=== PATIENT | female | born 1950 | race Caucasian/White ===

== ENCOUNTER 2020-10-14 09:37 | Emergency (ER) | payer MEDICARE, SELFPAY ==
[2020-10-14 09:56] VITALS: BP 157/90; PULSE 93; RESP 18; TEMP 36.6; O2SAT 99; BMI 26.6
--- NOTE | 2020-10-14 10:01 | XR_ITS ---
PROCEDURE: XR LUMBAR SPINE 2-3V CLINICAL INDICATION: back pain while loading wood stove COMPARISON: No exams were available for comparison FINDINGS: No fracture or dislocation. No lytic or blastic change. There is normal mineralization. There are mild degenerative changes with small anterior osteophytes and with degenerative disease at L2-L3. Mild facet arthritic changes are noted. There is diffuse vascular calcification. Normal alignment. Other findings:None. IMPRESSION: Degenerative change, no acute finding Dictated by: Gil Zapata MD 10/14/2020 11:38 Gil Zapata MD in [place] 10/14/2020 11:38
--- NOTE | 2020-10-14 10:05 | HMH.EDGENADL ---
ED Disposition Clinical Impression: Strain of lumbar region Disposition: Home, Self-Care Condition on Discharge: Good Instructions: DI for Low Back Pain Prescriptions: Lidocaine [Lidocaine Pain Relief] 1 each TP DAILY 5 Days #5 adh..patch Prescription Printed Naproxen Sodium [Naproxen 220mg Tab] 220 mg PO TID 10 Days #20 tab Prescription Printed methocarbamoL [Robaxin 750mg Tab] 750 mg PO TID PRN 5 Days #15 tab PRN Reason: Mild Pain Prescription Printed Referrals: Eddi Lozano MD [Primary Care Provider] - - Critical Care Critical Care Time: No Attestation: On 10/14/20, the high probability of a clinically significant, sudden or life threatening deterioration of the following system(s) required my full and direct attention, intervention and personal management. The time I documented below is in addition to time spent performing reported procedures but includes the following listed in this critical care notation. Medical Decision Making - Medical Records Medical records reviewed: Yes: I reviewed the patient's medical records. - Jonny Inquiry Pt receiving controlled substance: No Vital Signs: 10/14/20 09:56 Temperature 97.8 F Temperature Source Oral Pulse Rate [Left Radial] 93 H Respiratory Rate 18 Blood Pressure [Right Arm] 157/90 H Blood Pressure Mean [Right Arm] 112 Blood Pressure Source [Right Arm] Automatic Cuff Blood Pressure Position [Right Arm] Sitting 02 Sat by Pulse Oximetry 99 Oxygen Delivery Method Room Air Orders (Tests/Meds): ED MEDICATIONS Generic Name Dose Route Start Last Admin Trade Name Freq PRN Reason Stop Dose Admin Methocarbamol 500 mg 10/14/20 21:00 10/14/20 10:09 Methocarbamol 500mg Tablet PO 11/13/20 20:59 500 mg BID NATASHA Administration Discontinued Medications Generic Name Dose Route Start Last Admin Trade Name Freq PRN Reason Stop Dose Admin Ketorolac Tromethamine 30 mg 10/14/20 10:00 10/14/20 10:10 Ketorolac 60mg/2ml Vial IM 10/14/20 10:01 30 mg ONCE ONE Administration Lidocaine 1 each 10/14/20 10:00 10/14/20 10:27 Lidocaine 5% Transdermal Patch TP 10/14/20 10:01 1 each ONCE ONE Administration ORDERS Category Date Time Status Lumbar spine XR 2-3 views [XR lumbar spine 2-3V] Stat Exams 10/14/20 10:01 Taken Medical Decision Narrative: 69-year-old female presents with acute onset back pain. She says that she has no neurological deficit and is ambulatory. No concern for cauda equina syndrome or infectious etiology. Screening x-ray obtained as she is elderly and at risk for compression fracture. Given Toradol lidocaine and Robaxin for symptomatic relief. At 11:20 AM patient is ambulatory in the room and feels like she is having less pain. Plan to refer her to primary care physician for physical therapy versus advanced imaging. Otherwise given strict return precautions and discharged home with symptomatic relief General Adult HPI - General Chief complaint: Back Pain/Injury Stated complaint: back pain Time Seen by Provider: 10/14/20 09:40 Mode of Arrival: Ambulatory Limitations: No Limitations Description of Symptoms (Recalled from ER Triage Doc. by RN): c/o lower back pain that started after she was loading the wood stove this morning. - History of Present Illness HPI narrative: 69-year-old female was loading a wood stove and began to have lower back pain. She says the pain is constant worse with movement, dull in nature. She denies radiation of the pain numbness weakness or tingling in lower extremities. She is able to ambulate. She denies urinary or bowel incontinence. No groin numbness. No fever chills dysuria or flank pain. No abdominal pain. Onset (ago): hour(s) (1) Radiation: non-radiation Severity: moderate Severity scale (1-10): 5 Quality: dull, constant Consistency: constant - Related Data Previous Rx's Medication Instructions Recorded Lidocaine [Lidocaine Pain Relief] 1 ea
[2020-10-14 10:38] VITALS: BP 158/90; PULSE 88; RESP 18; O2SAT 98
[2020-10-14 11:35] VITALS: BP 170/74; PULSE 73; RESP 20; TEMP 36.6; O2SAT 98
== END 2020-10-14 11:36 | disposition home or self-care (01) ==
PROVIDERS: Emergency Provider Emergency Medicine; PCP Radiology Vascular & Interventional Radiology
DX: S39.012A Strain of muscle, fascia and tendon of lower back, initial encounter (principal); X50.0XXA Overexertion from strenuous movement or load, initial encounter; Y92.019 Unspecified place in single-family (private) house as the place of occurrence of the external cause
CPT/HCPCS: 72100; 96372; 99282

== ENCOUNTER 2024-06-06 10:08 | Emergency (ER) | payer MEDICARE, SELFPAY ==
[2024-06-06] VITALS (14 sets, daily range): BP systolic 134–188; BP diastolic 64–84; PULSE 58–88; RESP 11–19; TEMP 36.4–36.8; O2SAT 92–99; BMI 25.8
--- NOTE | 2024-06-06 10:32 | CT_ITS ---
FINAL REPORT TECHNIQUE: Postcontrast enhanced images of the abdomen and pelvis were performed by computed tomography. Extensive 3-D reconstruction images were performed. A CTA was performed. This study was performed with techniques to keep radiation doses as low as reasonably achievable (ALARA). Individualized dose reduction techniques using automated exposure control or adjustment of mA and/or kV according to the patient's size were employed. CLINICAL HISTORY: concern for mesenteric ischemia. COMPARISON: None FINDINGS: ABDOMEN AND PELVIS: Bilateral renal cysts are noted. There is focal wall thickening in the mid ascending colon, worrisome for neoplasm. Colonoscopy is suggested for further evaluation. There is also wall thickening of the ileum with edema in the small bowel mesentery. No adrenal masses are identified. The liver, spleen and pancreas are unremarkable. Mild bladder prolapse is present as well. CTA: There is moderate plaque in the abdominal aorta, particularly the infrarenal aorta with moderate narrowing of the lumen. There is less than 50% stenosis of the origin of the celiac axis origin. There is 60 to 70% stenosis of the proximal superior mesenteric artery. There is calcified plaque involving the origins of the renal arteries bilaterally without significant stenosis. The inferior mesenteric artery is patent. There is moderate calcified plaque present in the iliac arteries bilaterally. There is a focal stenosis involving the left common iliac artery of approximately 70%. There is also approximately 50% stenosis of the proximal right superficial femoral artery. IMPRESSION: Moderate plaque in the infrarenal abdominal aorta with moderate narrowing of the lumen. There is less than 50% stenosis of the origin of the celiac axis. There is 60 to 70% stenosis of the proximal superior mesenteric artery. The CASSANDRA is patent. There is focal wall thickening of the mid ascending colon, worrisome for neoplasm. Colonoscopy is suggested for further evaluation. There is wall thickening of the ileum with edema of the small bowel mesentery present. The differential diagnosis includes either an infectious enteritis or small bowel ischemia. There is a focal stenosis of 70% luminal diameter stenosis of the left common iliac artery. There is 50% stenosis involving the proximal right superficial femoral artery. Reviewed, Interpreted and Dictated by Caesar Huerta III, MD Transcribed by Lala Marie Authenticated and [facility]
[2024-06-06] MEDS: ACETAMINOPHEN 1,000MG/100ML VIAL 1000 MG IV (10:39)
[2024-06-06] MEDS: KETOROLAC 30MG/ML VIAL 15 MG IV (10:39)
[2024-06-06] MEDS: ONDANSETRON 4MG/2ML VIAL 4 MG IV (10:40)
--- NOTE | 2024-06-06 10:41 | ECG_ITS ---
APPROVED REPORT Exam: Resting ECG HR:75 bpm ECG Measurements Heart Rate 75 AXES [place] 206 P 81 QRSd 100 QRS -70 QT 410 T 99 QTc 439 Conclusion Sinus rhythm Left anterior fascicular block Electronically signed by : IRINA LINN, 06/06/2024 16:15:30
[2024-06-06 10:50] LABS: Basophils # 0.1 K/mm3 (0-0.2); Basophils % 0.5 % (0.1-2.0); Eosinophils % 0.3 % (0.1-12.0); Hematocrit 50.1 % (37.0-47.0); Hemoglobin 15.6 g/dL (12.2-16.2); Lymphocytes # 1.7 K/mm3 (0.7-4.5); Lymphocytes % 11.7 % (10-50); Mean Corpuscular HGB Conc 31.2 g/dL (31.8-35.4); Mean Corpuscular Hemoglobin 30.6 pg (27.0-31.2); Mean Corpuscular Volume 98.3 fl (81-99); Mean Platelet Volume 8.4 fl (7.4-10.4); Monocytes # 0.6 K/mm3 (0.1-1.0); Neutrophils # 12.4 K/mm3 (1.8-7.8); Neutrophils % 83.6 % (37.0-80.0); Platelet Count 395 K/mm3 (142-424); Red Blood Count 5.09 M/mm3 (4.20-5.40); Red Cell Distribution Width 13.9 % (11.5-17.5); White Blood Count 14.9 K/mm3 (4.8-10.8)
[2024-06-06 10:54] LABS: Microscopic, Urine URINE MICROSCOPIC (MICROSCOPIC)
[2024-06-06 10:56] LABS: Activated Partial Thrombo Time 24.7 seconds (22.8-30.6)
[2024-06-06 11:00] LABS: Appearance,Urine SL CLOUDY (Clear); Blood, Urine TRACE-I (Negative); Color,Urine DARK YELLOW (Yellow); Glucose,Urine (UA) Negative (Negative); Ketones,Urine TRACE (Negative); Leukocyte Esterase,Urine Negative (Negative); Nitrate,Urine POSITIVE (Negative); Protein,Urine 2+ (Negative); Specific Gravity, Urine >= 1.030 (1.005-1.030)
[2024-06-06 11:02] LABS: Albumin Level 3.9 g/dl (3.5-5.0); Chloride 107 mmol/L (98-107); Sodium 137 mmol/L (136-145)
[2024-06-06 11:03] LABS: Potassium 4.1 mmoL/L (3.5-5.1)
[2024-06-06 11:05] LABS: Alanine Aminotransferase 16 U/L (12-78); Anion Gap 8.1 mEq/L (5-15); Aspartate Amino Transferase 23 U/L (14-36); Blood Urea Nitrogen 14 mg/dl (7-17); Carbon Dioxide 26 mmol/L (22.0-30.0); Creatinine Clearance Estimated 53 mL/min (50-200); Estimated Glomerular Filt Rate 49 ml/min (>60); GFR (African American) 59 ML/MIN (>60)
[2024-06-06 11:06] LABS: Albumin/Globulin Ratio 1.3 (1.1-1.8); Alkaline Phosphatase 85 U/L (38-126); Bilirubin,Total 0.7 mg/dl (0.2-1.3); Chol/HDL Ratio 4.5 (1-3.5); Cholesterol 189 mg/dl (140-200); Glucose 137 mg/dl (74-100); HDL Cholesterol 42 mg/dl (40-60); Lipase 56 U/L (23-300); Total Protein,Serum 6.9 g/dl (6.3-8.2); Triglycerides 129 mg/dl (30-150); VLDL Cholesterol 26 mg/dL (0-40)
[2024-06-06 11:08] LABS: INR 0.95 (0.9-1.1); Prothrombin Time 10.7 seconds (10.1-12.5)
--- NOTE | 2024-06-06 11:10 | ED_ITS ---
Discharge Plan Disposition Patient Disposition: Home, Self-Care Prescriptions Prescriptions: New cefdinir 300 mg capsule 300 mg PO BID 10 Days Qty: 20 0RF No Action methocarbamol 750 MG tablet 750 mg PO TID PRN (Reason: Mild Pain) 5 Days Qty: 15 0RF naproxen sodium 220 MG tablet 220 mg PO TID 10 Days Qty: 20 0RF lidocaine 1 EACH adhesive patch,medicated 1 each TP DAILY 5 Days Qty: 5 0RF Referrals Follow up/Referrals: Provider,Referral, MD [Primary Care Provider] - See instructions Activity Restrictions/Add. Instructions Additional Instructions/Restrictions: Follow-up with both colorectal surgery (Dr. Fowler) and vascular surgery (Dr. Brantley) as directed. Until following up with vascular surgery, take baby aspirin every day. Cefdinir twice daily for 10 days to treat infection in your kidney (pyelonephritis). [place], easily tolerated diet. If you cannot tolerate any more p.o. intake or have any worsening signs or symptoms, return to the emergency department for further evaluation. Call your family doctor to establish care for this visit to the emergency department and schedule follow-up within 48 hours to ensure improvement. If you have any worsening of your condition or any other concerning signs or symptoms, return to the emergency department or your primary care doctor for further evaluation. Clinical Impressions Clinical Impression: Acute pyelonephritis, Mesenteric artery stenosis, Colonic mass Instructions Patient Instructions: DI for Acute Abdominal Pain Print Language Print Language: Irish Discharge ED Provider: Enrique Mendoza General Adult HPI General Chief complaint: Abdominal Pain Stated complaint: Sycopy Time Seen by Provider: 06/06/24 10:25 Mode of Arrival: EMS Source of Information: Patient and EMS Limitations: No Limitations Description of Symptoms (Recalled from ER Triage Doc. by RN): pt c/o intermittant, generalized abd cramping that is a 7/10. pt also c/o N/V/D and acid reflux. pt reports she had a syncopal episode yesterday and again this am while on the toilet. pt denies urinary symptoms. pt has no medical hx or daily medications. History of Present Illness HPI narrative: Please note that above description of symptoms, in this electronic medical record under categorization of recalled from ER triage doctor by RN are reflective of an initial nursing assessment, however, is not reflective of my full history and physical exam that was personally taken and clarified. Consequentially, this preceding description of symptoms, which may include the patient's categorized chief complaint in the EMR, do not reflect my personal clinical impression, and the ultimate description of history of present illness and patient stated complaints should be deferred to this section of the note. Unless stated otherwise or congruent with this section of the note, additional signs, symptoms, or incongruence should be interpreted as inaccurate with my clinical impression. Related Data Previous Rx's ?Medication ?Instructions ?Recorded lidocaine 4 % topical patch 1 each TP DAILY 5 days ##5 10/14/20 methocarbamol 750 mg tablet 750 mg PO TID PRN Mild Pain 5 days 10/14/20 #15 tabs naproxen sodium 220 mg tablet 220 mg PO TID 10 days #20 tabs 10/14/20 cefdinir 300 mg capsule 300 mg PO BID 10 days #20 caps 06/06/24 Allergies Allergy/AdvReac Type Severity Reaction Status Date / Time No Known Allergies Allergy Verified 06/06/24 10:44 [facility] Disclaimer: The information contained in this section may have been updated after the patient was seen, as this information can be updated by other users. Social History Smoking Status: Never smoker alcohol intake: never current occupational status: unemployed Travel in the last 8 weeks: None ROS Obtained: Yes All systems reviewed & no additional complaints except as documented Physical Exam General General appearance: alert Head Head exam: atraumatic and normocephalic Eye Eye exam: Present normal appearance, PERRL and EOMI Neck Neck exam: Present normal inspection, full ROM and trachea midline Respiratory Respiratory exam: Absent respiratory distress, wheezes, stridor, accessory muscle use or prolonged expiratory phase Cardiovascular Cardiovascular exam: Present other (Pulses equal symmetric in upper and lower extremities) Abdominal Exam Abdominal exam: Present soft; Absent distention, tenderness or pulsatile mass Extremities Exam Extremities exam: Absent edema Neurological Exam Neurological exam: Present alert, oriented X3 and CN II-XII intact; Absent motor sensory deficit Skin Skin exam: Present warm and dry; Absent diaphoresis or erythema Medical Decision Making Medical Records Medical records reviewed: Yes I reviewed the patient's medical records. Jonny Inquiry Pt receiving controlled substance: No Jonny was queried for this patient: No Vital Signs: 06/06/24 10:30 06/06/24 10:34 06/06/24 10:49 Temperature 97.5 F L Temperature Source Oral Pulse Rate 81 88 Pulse Rate [Left] 85 Respiratory Rate 16 Blood Pressure 188/81 H 148/84 H Blood Pressure [Right Arm] 150/83 H Blood Pressure Mean Blood Pressure Mean [Right Arm] 105 Blood Pressure Source [Right Arm] Automatic Cuff Blood Pressure Position [Right Arm] Sitting 02 Sat by Pulse Oximetry 97 96 99 Oxygen Delivery Method Room Air Room Air Room Air 06/06/24 11:00 06/06/24 11:40 06/06/24 12:00 Temperature Temperature Source Pulse Rate 68 74 69 Pulse Rate [Left] Respiratory Rate 12 14 12 Blood Pressure 148/78 H 140/70 150/72 H Blood Pressure [Right Arm] Blood Pressure Mean 101 Blood Pressure Mean [Right Arm] Blood Pressure Source [Right Arm] Blood Pressure Position [Right Arm] 02 Sat by Pulse Oximetry 97 98 98 Oxygen Delivery Method Room Air Room Air 06/06/24 12:30 06/06/24 13:00 06/06/24 13:30 Temperature Temperature Source Pulse Rate 59 L 64 60 Pulse Rate [Left] Respiratory Rate 12 13 12 Blood Pressure 134/67 149/75 H 148/82 H Blood Pressure [Right Arm] Blood Pressure Mean Blood Pressure Mean [Right Arm] Blood Pressure Source [Right Arm] Blood Pressure Position [Right Arm] 02 Sat by Pulse Oximetry 97 97 97 Oxygen Delivery Method Room Air Room Air Room Air 06/06/24 14:00 06/06/24 14:30 06/06/24 15:00 Temperature Temperature Source Pulse Rate 58 L 60 62 Pulse Rate [Left] Respiratory Rate 11 L 13 17 Blood Pressure 143/64 H 135/67 159/71 H Blood Pressure [Right Arm] Blood Pressure Mean Blood Pressure Mean [Right Arm] Blood Pressure Source [Right Arm] Blood Pressure Position [Right Arm] 02 Sat by Pulse Oximetry 97 97 95 Oxygen Delivery Method Room Air Room Air Room Air Lab Data Lab Results 06/06/24 10:20: WBC 14.9 H, RBC 5.09, Hgb 15.6, Hct 50.1 H, MCV 98.3, MCH 30.6, MCHC 31.2 L, RDW 13.9, Plt Count 395, MPV 8.4, Neut % (Auto) 83.6 H, Lymph % (Auto) 11.7, [place] % (Auto) 4.0, Eos % (Auto) 0.3, Baso % (Auto) 0.5, Neut # (Auto) 12.4 H, Lymph # (Auto) 1.7, [place] # (Auto) 0.6, Eos # (Auto) 0.0, Baso # (Auto) 0.1, ESR 8, PT 10.7, INR 0.95, APTT 24.7, Sodium 137, Potassium 4.1, Chloride 107, Carbon Dioxide 26, Anion Gap 8.1, BUN 14, Creatinine 1.10 H, Estimated Creat Clear 53, Estimated GFR 49 L, Est GFR ( Amer) 59, Glucose 137 H, Hemoglobin A1c 5.3, Calcium 9.0, Total Bilirubin 0.7, AST 23, ALT 16, Alkaline Phosphatase 85, Troponin I < 0.01, C-Reactive Protein 7.0 H, NT-Pro-B Natriuret Pep 183 H, Total Protein 6.9, Albumin 3.9, Globulin 3.0, Albumin/Globulin Ratio 1.3, Triglycerides 129, Cholesterol 189, LDL Cholesterol Direct 100.82, VLDL Cholesterol 26, HDL Cholesterol 42, Cholesterol/HDL Ratio 4.5 H, Lipase 56, TSH 2.72, Thyroxine (T4) 11.5 H 06/06/24 10:48: Urine Color Dark yellow, Urine Appearance Sl cloudy, Urine pH 6.0, Ur Specific [place] >= 1.030, Urine Protein 2+ A, Urine Glucose (UA) Negative, Urine Ketones Trace, Urine Blood Trace-i, Urine Nitrate Positive, U rine Bilirubin 1+ A, Urine Urobilinogen 1.0, Ur Leukocyte Esterase Negative, Urine RBC Occasional, Urine WBC 3-5, Ur Squamous Epith Cells 5-10, Urine Bacteria 4+ 06/06/24 11:55: Lactate 1.7 06/06/24 10:20 06/06/24 10:20 Orders (Tests/Meds): ED MEDICATIONS Discontinued Medications Generic Name Dose Route Start Last Admin Trade Name Nicole PRN Reason Stop Dose Admin Acetaminophen 1,000 mg 06/06/24 10:32 06/06/24 10:39 Acetaminophen 1,000mg/100ml Vial IV 06/06/24 10:33 1,000 mg ONCE ONE Administration Ceftriaxone Sodium 1 gm/ 50 mls @ 100 mls/hr 06/06/24 12:00 06/06/24 11:59 Sodium Chloride IV 06/06/24 12:29 100 mls/hr ONCE ONE Administration Iopamidol 80 ml 06/06/24 11:28 06/06/24 11:29 Iopamidol-370 (76%);100ml Bottle IV 06/06/24 11:29 80 ml ONCE ONE Administration Ketorolac Tromethamine 15 mg 06/06/24 10:32 06/06/24 10:39 Ketorolac 30mg/Ml Vial IV 06/06/24 10:33 15 mg ONCE ONE Administration Ondansetron HCl 4 mg 06/06/24 10:32 06/06/24 10:40 Ondansetron 4mg/2ml Vial IV 06/06/24 10:33 4 mg ONCE ONE Administration Sodium Chloride 50 ml 06/06/24 11:28 06/06/24 11:28 0.9 % Sodium Chloride 50 Ml Vial IV 06/06/24 11:29 50 ml ONCE ONE Administration Sodium Chloride 10 ml 06/06/24 11:28 06/06/24 11:29 Sodium Chloride 0.9% 10ml Syr (Rad Only) IV 06/06/24 11:29 10 ml ONCE ONE Administration ORDERS Category Date Time Status CT angio abdomen pelvis Stat Cat Scan 06/06/24 10:32 Completed POCUS Point of Care (ER Only) Stat Exams 06/06/24 10:34 Completed CRP [C-Reactive Protein] Stat Lab 06/06/24 10:20 Completed Complete Blood Count Auto Diff Stat Lab 06/06/24 10:20 Completed Comprehensive Metabolic Panel Stat Lab 06/06/24 10:20 Completed ESR [Erythrocyte Sedimentation Rate] Stat Lab 06/06/24 10:20 Completed Hemoglobin A1C Stat Lab 06/06/24 10:20 Completed Lactic Acid Stat Lab 06/06/24 11:55 Completed Lipase Stat Lab 06/06/24 10:20 Completed Lipid Panel Stat Lab 06/06/24 10:20 Completed NT Pro Brain Natriuretic Pep. Stat Lab 06/06/24 10:20 Completed PT INR [Prothrombin Time INR] Stat Lab 06/06/24 10:20 Completed PTT [Activated Partial Thrombo Time] Stat Lab 06/06/24 10:20 Completed T4 (Thyroxine) Stat Lab 06/06/24 10:20 Completed TSH [Thyroid Stimulating Hormone] Stat Lab 06/06/24 10:20 Completed Troponin I Stat Lab 09/05/24 10:20 Completed Urinalysis and Microscopic Stat Lab 06/06/24 10:48 Completed Urine Culture Stat Micro 06/06/24 10:48 Received Medical Decision Narrative: 73-year-old female presenting with abdominal pain. Patient states that she has had abdominal pain on and off for the last couple of days. Made worse with oral intake, made better with fasting. Shortly after eating, has immediate cramping in her epigastrium like a band across her abdomen, and then shortly thereafter has bandlike feeling around her lower abdomen associated with cramping diarrhea. No blood in her stool. No fevers or chills, she has been nauseated without vomiting. Does not take any medications, has no health problems. No abdominal surgical history. History was obtained via conversation with patient. On arrival, patient hemodynamically stable, alert, oriented x4, appropriate, GCS 15, moving all extremities spontaneously, pupils equal and reactive to light. Full physical exam performed and significant for well-appearing 73-year-old female who is in no acute distress. Abdomen is soft, nontender, nondistended. No flank tenderness. No distention, no overlying skin changes. Lopez sign negative, McBurney's point tenderness negative. Unremarkable physical exam overall. Differential includes PUD, gastritis, enteritis, gastroenteritis, pancreatitis, SBO, colitis, diverticulitis, nephrolithiasis, UTI, cholecystitis, choledocholithiasis, appendicitis, torsion, hepatitis, aortic pathology, mesenteric ischemia, ACS, among others. Patient placed on continuous cardiac monitoring and continuous pulse ox with initial blood pressure 148/84, heart rate 88, saturation 99% on room air. Independent interpretation of EKG shows sinus rhythm 75 beats a minute no ST or T wave changes concerning for acute ischemia. [place] 206, QRS 100, QTc 439. Patient was given Toradol, acetaminophen, Zofran, fluids for symptomatic management and correction of underlying abnormalities. Workup independently interpreted and significant for mild leukocytosis 14.9 with neutrophilia. Coags are normal. Kidney function mildly decreased 1.1 creatinine with normal BUN. Troponin negative, CRP nonactionable. Thyroid studies normal. Urinalysis with concern for pyelonephritis with protein, blood, nitrates, and bacteria. On independent interpretation of imaging, primarily right-sided/ascending colon bowel wall edema. Patient does also have inflammatory mass. No free air or evidence of perforation. Free fluid throughout the abdomen. See radiology read for full review of final results. I contacted colorectal surgery and vascular surgery at [facility], case was discussed at length. Both recommended outpatient follow-up. Dr. Fowler with colorectal within 1 to 2 weeks, [address] Brantley with vascular within a couple of months. On reevaluation, patient is feeling much better, but awaiting results. Because patient at baseline without signs or symptoms of clinical decompensation, deemed appropriate for discharge. Results were relayed to patient who voiced understanding and were agreeable to outpatient management and follow up. I discussed my clinical impression with patient and answered all questions. At this time, the evidence for any other entities in the differential is insufficient to warrant any further testing or ED observation. This was explained as well. Advisory was given that persistent or worsening symptoms require further evaluation. I confirmed the understanding of this discussion. Messaging Architect disclaimer Much of this encounter note is an electronic pilot control operator helper spoken language to printed text. Electronic pilot control operator helper of the spoken language may permit errors. Although I have reviewed the note, some errors may still exist. Critical Care Critical Care Time Critical Care Time: No
[2024-06-06 11:17] LABS: Direct LDL Cholesterol 100.82 mg/dL (100-129); NT Pro Brain Natriuretic Pep. 183 pg/mL (0-125)
[2024-06-06 11:18] LABS: Bilirubin,Urine 1+ (Negative)
[2024-06-06 11:22] LABS: Erythrocyte Sedimentation Rate 8 mm/hr (0-30)
[2024-06-06 11:26] LABS: T4 (Thyroxine) 11.5 ug/dl (5.53-11.0)
[2024-06-06] MEDS: 0.9 % SODIUM CHLORIDE 50 ML VIAL IV (11:28)
[2024-06-06] MEDS: SODIUM CHLORIDE 0.9% 10ML SYR (RAD ONLY) 10 ML IV (11:29)
[2024-06-06] MEDS: IOPAMIDOL-370 (76%);100ML BOTTLE 80 ML IV (11:29)
[2024-06-06 11:38] LABS: Bacteria,Urine 4+ /lpf; RBC,Urine Occasional #/hpf (0-3)
[2024-06-06 11:40] LABS: Thyroid Stimulating Hormone 2.72 uIU/mL (0.465-4.68)
[2024-06-06 11:43] LABS: Troponin I < 0.01 ng/ml (0.00-0.034)
[2024-06-06] MEDS: CEFTRIAXONE 1 GM 1 GM in 0.9 % SODIUM CHLORIDE 50 ML IV (11:59)
--- NOTE | 2024-06-06 11:59 | PC.NURSE ---
I inquired about blood cultures, states we do not need them.
--- NOTE | 2024-06-06 12:03 | PC.NURSE ---
I rounded on the pt, no new complaints at this time. I took her a cup of ice. call buitrago in reach.
[2024-06-06 12:14] LABS: Lactic Acid 1.7 mmol/L (0.7-2.1)
[2024-06-06 12:16] LABS: Hemoglobin A1C 5.3 % (4.0-6.0)
--- NOTE | 2024-06-06 14:45 | PC.NURSE ---
Called [facility] per Dr Mendoza about this pt. [facility] advised that they would call us back as soon as they get ahold of the Hospitalist
--- NOTE | 2024-06-06 15:10 | PC.NURSE ---
Spoke with [facility] transfer center. They advised that Dr. Linn would call back when available
--- NOTE | 2024-06-06 15:15 | PC.NURSE ---
Rounded on pt. Updated that Dr. Mendoza would be speaking with [facility] and then would be around to update her. Pt voiced understanding. Call sincere butcher.
--- NOTE | 2024-06-06 15:50 | PC.NURSE ---
Dr. Mendoza at [facility] to update pt on POC
--- NOTE | 2024-06-08 12:13 | PC.NURSE ---
DISCUSSED URINE CULTURE WITH DR LINN, NO NEW ORDERS
== END 2024-06-06 16:04 | disposition home or self-care (01) ==
PROVIDERS: Emergency Provider Emergency Medicine
DX: N10 Acute pyelonephritis (principal); K55.1 Chronic vascular disorders of intestine; K63.89 Other specified diseases of intestine; D72.829 Elevated white blood cell count, unspecified
CPT/HCPCS: 74174; 80053; 80061; 81001; 83036; 83605; 83690; 83880; 84436; 84443; 84484; 85025; 85610; 85651; 85730; 86140; 87086; 87088; 87186; 93005; 96365; 96375; 99285; J0131; J0696; J1885; J2405; Q9967

== ENCOUNTER 2024-08-20 11:33 | Outpatient (CLI) | payer MEDICARE, SELFPAY | END 2024-08-20 23:59 | disposition home or self-care (01) | LOC: PREOP 11:34 | PROVIDERS: Visit Provider Surgery | DX: R69 Illness, unspecified (principal) ==

== ENCOUNTER 2024-08-22 05:59 | Day surgery (SDC) | payer MEDICARE, SELFPAY ==
[2024-08-20 11:58] VITALS: BMI 25.2
[2024-08-22] VITALS (9 sets, daily range): BP systolic 146–159; BP diastolic 60–80; PULSE 65–82; RESP 16–18; TEMP 36.2–36.7; O2SAT 94–98
[2024-08-22] MEDS: 0.9 % SODIUM CHLORIDE 1000ML 1,000 ML 25 ML IV (06:30)
--- NOTE | 2024-08-22 06:58 | EXP.ANES.CKL ---
[facility] Disclaimer: The information contained in this section may have been updated after the patient was seen, as this information can be updated by other users. Medical History History of colon cancer Surgical History History of neck surgery History of colonoscopy Family History Sister Heart attack Mother Diabetes Other Family history of CVA Family history of brain aneurysm Social History Smoking Status: Current every day smoker alcohol intake: never substance use type: denies use current occupational status: unemployed and retired Travel in the last 8 weeks: None marital status: [facility] Anesthesia Checklist Patient Identification Patient Identification: Arm Band and Family Structural Data Admitted From: Home Planned Operative Procedure/s: Portacath Verified Documents: Surgical Consent and History and Physical NPO Status Verified Time NPO: 00:00 Additional verifications Patient : No Anesthesia Reactions: No Hx Blood Transfusions: No Blood Transfusion Reaction: No Cephalosporin Allergy: No Previous Colonoscopy: Yes Airway Assessment Mallampati Score:: Class II C-Spine Mobility Assessed: Yes TMJ Mobility Assessed: Yes Dentition: Edentulous Neurological Assessment Level of Consciousness: Awake, Alert, Appropriate and Follows Commands Hx Seizures: No Numbness or tingling in extremities: No Anesthesia Plan Anesthesia Risk discussed: Yes ASA Class: II Anesthesia Type: General Preoperative Comments Pre-Operative Comments: [place]-rectal cancer.
[2024-08-22] MEDS: CEFAZOLIN SODIUM 2 GM in 0.9 % SODIUM CHLORIDE 100 ML IV (07:15)
[2024-08-22] MEDS: LIDOCAINE 1% 20ML MDV 20 ML (07:37)
[2024-08-22] MEDS: SODIUM CHLORIDE 0.9% 20ML VIAL 40 ML IV (07:37)
--- NOTE | 2024-08-22 07:55 | XR_ITS ---
FINAL REPORT CLINICAL HISTORY: PORT A CATH PLACEMENT IN OR FT: 0.57 11.43 MGY FINDINGS: FLUOROSCOPY LESS THAN 1 HOUR HISTORY: Fluoroscopy guidance FINDINGS: Fluoroscopic guidance was provided for Port-A-Cath placement. 2 spot films were obtained. A total of 0.57 minutes of fluoroscopy time was used. DAP: 11.43 mGy IMPRESSION: As above. Reviewed, Interpreted and Dictated by Richard Schofield MD Transcribed by Simran Hannon Authenticated and . [facility]
--- NOTE | 2024-08-22 08:11 | P.OP_ITS ---
Date of procedure: 08/22/24 Pre-op Diagnosis:: Colorectal cancer Post-op Diagnosis:: Same Procedure performed:: Port-A-Cath placement Surgeon:: Chad Rushing MD [employer]ER TEACHER:: Johann Delgado Anesthesia: local and LMA Estimated blood loss (mL): 10 Operative findings:: Catheter placement confirmed fluoroscopically Operative note:: After informed consent was obtained the patient was taken to the operating room and placed in the supine position. General anesthesia with laryngeal mask airway was achieved. Her chest and neck were prepped and draped in a sterile fashion. After infiltration with local anesthetic a large bore needle was utilized to access the left subclavian vein. The guidewire was placed in position and confirmed fluoroscopically. A transverse incision was made at the guidewire exit site. Electrocautery was then utilized to transect through the subcutaneous tissue to create a pocket for the port hub. Utilizing a modified Seldinger technique the port catheter was placed in position and confirmed fluoroscopically. The catheter was cut to appropriate length and secured to the hub. The hub was then secured to the underlying fascia with interrupted Prolene suture. The deep subcutaneous tissue was reapproximated with interrupted Vicryl. Skin was then closed with 4-0 Monocryl in a running subcuticular manner. The port was flushed with heparinized saline without difficulty. Dressings were applied and the patient was transferred to recovery in stable condition. Condition: stable Disposition: PACU Specimens:: None Complications:: No immediate. Chest x-ray pending.
--- NOTE | 2024-08-22 08:15 | XR_ITS ---
FINAL REPORT CLINICAL HISTORY: Port placement COMPARISON: None FINDINGS: A left chest port is present with the tip in the SVC. The heart size is normal. The mediastinum is normal. The lungs are underinflated but clear. There are no pleural effusions. There is no pneumothorax. There is no osseous abnormality. IMPRESSION: No acute cardiopulmonary process Left chest port tip in the SVC. Reviewed, Interpreted and Dictated by Richard Schofield MD Transcribed by Anika Soto Authenticated and [facility]
--- NOTE | 2024-08-22 08:21 | P.PNANES_ITS ---
[facility] Anesthesia Record Part I Anesthesia Record I Intake, IV Amount: 900 Hydration: Adequate Estimated blood loss (mL): 2 Urine output (mL): 0 Blood Products used (#): none Blood Pressure: 150/80 SaO2: 96 Pulse Rate: 82 Airway Patency: Patent Respiratory Rate: 16 Temperature: 97.3 F Patient is:: Drowsy and Stable Stable to PACU at:: 08:15
--- NOTE | 2024-08-23 08:11 | EXP.ANES.II ---
[facility] Anesthesia Record Part II Anesthesia Record Part II Discharge Time: 08:45 Destination: Surgical Day Care (OP Surgery) PACU nurse assessment reviewed?: Yes Patient Condition:: Good Anesthesia Complications:: None Swallowing reflex intact?: Yes Airway Patency: Patent Cyanosis?: No Blood Pressure: 148/70 SaO2: 97 Respiratory Rate: 16 Pulse Rate: 76 Temperature: 98.1 F Mental Status: Alert & Oriented Pain level:: 0 Nausea and/or vomitting:: None Intake, IV Amount: 0 Hydration: Adequate
[2024-08-23 08:12] VITALS: BP 148/70; PULSE 76; RESP 16; TEMP 36.7; O2SAT 97
== END 2024-08-22 09:35 | disposition home or self-care (01) ==
PROVIDERS: Visit Provider Surgery
PROC: (CPT 36561; principal; 2024-08-22 07:30)
DX: C20 Malignant neoplasm of rectum (principal)
CPT/HCPCS: 36561; 77001; 71045; 76000; 96374; C1788; J0690; J1642; J7030

== ENCOUNTER 2024-08-31 10:04 | Emergency (ER) | payer MEDICARE, SELFPAY ==
[2024-08-31] VITALS (11 sets, daily range): BP systolic 126–166; BP diastolic 72–91; PULSE 60–104; RESP 16–18; TEMP 36.3–36.4; O2SAT 95–98; BMI 25.2
--- NOTE | 2024-08-31 10:36 | ED_ITS ---
Discharge Plan Disposition Patient Disposition: Xfer Other Condition: Good Chief Complaint: Abdominal Pain Prescriptions Prescriptions: No Action aspirin 81 mg tablet,chewable 81 mg PO DAILY rosuvastatin 20 mg tablet 20 mg PO DAILY Patient Comments: TAKE 1 TABLET BY MOUTH ONCE DAILY AT NIGHT Referrals Follow up/Referrals: Provider,Damian, [Primary Care Provider] - See instructions Clinical Impressions Clinical Impression: Bowel obstruction Stand Alone Forms Stand Alone Forms: Transfer Record - ED Instructions Patient Instructions: DI for Acute Abdominal Pain Print Language Print Language: Portuguese Discharge ED Provider: Elena Adair General Adult HPI General Chief complaint: Abdominal Pain Stated complaint: abd pain loss of appitate vomiting Time Seen by Provider: 08/31/24 10:36 Mode of Arrival: Ambulatory Source of Information: Patient Limitations: No Limitations Description of Symptoms (Recalled from ER Triage Doc. by RN): Patient reports she was recently diagnosed with stage 4 colorectal cancer and is supposed to start chemo on Monday. Presents to the ER with complaint of vomiting, abdomen pain and unable to have a bowel movement. States her last bowel movement was . History of Present Illness HPI narrative: Patient is a 73-year-old with past medical history significant for colorectal cancer stage IV has not had any surgeries chemo or radiation plans to start chemo on Monday presents to the emergency department with vomiting abdominal pain. Last bowel movement was on 08/28. Unable to tolerate any liquids since 08/29. Pain is severe intermittent cramping in nature with associated bloating. Last passed gas this morning. No fevers chills dysuria or increased urinary frequency Related Data Home Medications ?Medication ?Instructions ?Recorded ?Confirmed aspirin 81 mg chewable tablet 81 mg PO DAILY 08/15/24 rosuvastatin 20 mg tablet 20 mg PO DAILY 08/16/24 08/16/24 Allergies Allergy/AdvReac Type Severity Reaction Status Date / Time No Known Allergies Allergy Verified 08/16/24 09:39 [facility] Disclaimer: The information contained in this section may have been updated after the patient was seen, as this information can be updated by other users. Medical History (Updated 08/31/24 @ 15:01 by Elena Adair MD) History of colon cancer Surgical History History of neck surgery History of colonoscopy Family History Sister Heart attack Mother Diabetes Other Family history of CVA Family history of brain aneurysm Social History Smoking Status: Current every day smoker alcohol intake: never substance use type: denies use current occupational status: unemployed and retired marital status: Other Medical History Have you received the Flu Vaccine for this season: No Have you received the Pneumonia Vaccine: No ROS Obtained: Yes All systems reviewed & no additional complaints except as documented Physical Exam General General appearance: alert and in no apparent distress Comment: Appears uncomfortable Head Head exam: atraumatic and normocephalic ENT ENT exam: Present normal exam and mucous membranes moist Chest Chest inspection: Present symmetric chest wall rise and tenderness Respiratory Respiratory exam: Absent respiratory distress Cardiovascular Cardiovascular exam: Present regular rate and normal rhythm Abdominal Exam Abdominal exam: Present soft, distention (Minimal distention), tenderness (Right lower quadrant tenderness with associated guarding) and guarding Comment: No flank pain Neurological Exam Neurological exam: Present alert and oriented X3 Skin Skin exam: Present warm, dry and rash Medical Decision Making Medical Records Screening: Per USPSTF and CDC recommendations, given the prevalence of disease in our region, it is our hospital?s policy to screen for HIV and viral Hepatitis for all patients aged 18 and over and those with ongoing risk factors. Jonny Inquiry Pt receiving controlled substance: No Vital Signs: 08/31/24 10:05 08/31/24 10:30 08/31/24 11:00 Temperature 97.4 F L Temperature Source Oral Pulse Rate 87 60 Pulse Rate [Radial] 104 H Respiratory Rate 16 Blood Pressure 148/87 H 126/85 Blood Pressure [Right Arm] 137/91 H Blood Pressure Mean Blood Pressure Mean [Right Arm] 106 Blood Pressure Source [Right Arm] Automatic Cuff Blood Pressure Position [Right Arm] Sitting 02 Sat by Pulse Oximetry 98 96 96 Oxygen Delivery Method Room Air Room Air Room Air 08/31/24 11:31 08/31/24 12:00 08/31/24 12:30 Temperature Temperature Source Pulse Rate 77 79 70 Pulse Rate [Radial] Respiratory Rate 18 18 18 Blood Pressure 166/79 H 156/77 H 166/84 H Blood Pressure [Right Arm] Blood Pressure Mean 106 103 104 Blood Pressure Mean [Right Arm] Blood Pressure Source [Right Arm] Blood Pressure Position [Right Arm] 02 Sat by Pulse Oximetry 95 98 96 Oxygen Delivery Method 08/31/24 13:00 08/31/24 13:30 08/31/24 14:01 Temperature Temperature Source Pulse Rate 72 69 74 Pulse Rate [Radial] Respiratory Rate Blood Pressure 161/81 H 145/82 H 142/79 H Blood Pressure [Right Arm] Blood Pressure Mean Blood Pressure Mean [Right Arm] Blood Pressure Source [Right Arm] Blood Pressure Position [Right Arm] 02 Sat by Pulse Oximetry 98 95 95 Oxygen Delivery Method Room Air Room Air Room Air 08/31/24 14:30 Temperature Temperature Source Pulse Rate 63 Pulse Rate [Radial] Respiratory Rate Blood Pressure 145/79 H Blood Pressure [Right Arm] Blood Pressure Mean Blood Pressure Mean [Right Arm] Blood Pressure Source [Right Arm] Blood Pressure Position [Right Arm] 02 Sat by Pulse Oximetry 96 Oxygen Delivery Method Room Air Lab Data Lab Results 08/31/24 10:18: WBC 14.0 H, RBC 5.33, Hgb 16.5 H, Hct 48.4 H, MCV 90.8, MCH 31.0, MCHC 34.2, RDW 14.3, Plt Count 383, MPV 7.9, Neut % (Auto) 75.2, Lymph % (Auto) 19.0, [place] % (Auto) 4.7, Eos % (Auto) 0.4, Baso % (Auto) 0.8, Neut # (Auto) 10.5 H, Lymph # (Auto) 2.7, [place] # (Auto) 0.7, Eos # (Auto) 0.1, Baso # (Auto) 0.1, Sodium 138, Potassium 4.0, Chloride 107, Carbon Dioxide 23, Anion Gap 12.0, BUN 16, Creatinine 1.20 H, Estimated Creat Clear 47, Estimated GFR 44 L, Est GFR ( Amer) 53 L, Glucose 122 H, Lactate 1.2, Calcium 9.7, Magnesium 2.0, Total Bilirubin 0.8, AST 26, ALT 16, Alkaline Phosphatase 92, Total Protein 7.6, Albumin 4.3, Globulin 3.3 H, Albumin/Globulin Ratio 1.3, Lipase 73, HIV 1&2 Antibody Rapid Nonreactive 08/31/24 12:15: Urine Color Yellow, Urine Appearance Clear, Urine pH 5.5, Ur Specific [place] 1.020, Urine Protein Trace, Urine Glucose (UA) Negative, Urine Ketones Negative, Urine Blood 1+ A, Urine Nitrate Negative, Urine Bilirubin 1+ A , Urine Urobilinogen 0.2, Ur Leukocyte Esterase Negative, Urine RBC None, Urine WBC Occasional, Ur Squamous Epith Cells 5-10 08/31/24 10:18 08/31/24 10:18 Orders (Tests/Meds): ED MEDICATIONS Generic Name Dose Route Start Last Admin Trade Name Freally PRN Reason Stop Dose Admin Sodium Chloride 10 ml 08/31/24 11:18 08/31/24 11:19 Sodium Chloride 0.9% 10ml Syr (Rad Only) IV 09/30/24 11:17 10 ml NEEDED PRN Administration Maintain IV Site Discontinued Medications Generic Name Dose Route Start Last Admin Trade Name Freq PRN Reason Stop Dose Admin Iopamidol 75 ml 08/31/24 11:18 08/31/24 11:19 Iopamidol-370 (76%);100ml Bottle IV 08/31/24 11:19 75 ml ONCE ONE Administration Morphine Sulfate 2 mg 08/31/24 11:00 08/31/24 10:56 Morphine 2mg/Ml Syringe IV 08/31/24 11:01 2 mg ONCE ONE Administration Morphine Sulfate 4 mg 08/31/24 13:12 08/31/24 13:19 Morphine 4mg/Ml Syringe IV 08/31/24 13:13 4 mg ONCE ONE Administration Ondansetron HCl 4 mg 08/31/24 10:46 08/31/24 10:56 Ondansetron 4mg/2ml Vial IV 08/31/24 10:47 4 mg ONCE ONE Administration ORDERS Category Date Time Status CT abdomen pelvis w con Stat Cat Scan 08/31/24 10:46 Completed CBC w/Auto Diff [Complete Blood Count Auto Diff] Stat Lab 08/31/24 10:18 Completed CMP [Comprehensive Metabolic Panel] Stat Lab 08/31/24 10:18 Completed HIV (1&2) Antibody Rapid Stat Lab 08/31/24 10:18 Completed Hep C Ab with Reflex to RNA Stat Lab 08/31/24 10:18 Received Lactate Venous Stat Lab 08/31/24 10:18 Received Lactic Acid Stat Lab 08/31/24 10:18 Completed Lipase Stat Lab 08/31/24 10:18 Completed MAG [Magnesium] Stat Lab 08/31/24 10:18 Completed UA [Urinalysis and Microscopic] Stat Lab 08/31/24 12:15 Completed Medical Decision Narrative: In summary, this 73-year-old female presents to the emergency department today with abdominal pain nausea vomiting. On initial evaluation patient is tachycardic afebrile hypertensive saturating appropriately on room air no acute distress. Differential diagnosis includes but is not limited to bowel obstruction volvulus ileus metastatic disease constipation. Based on these concerns, I ordered CBC CMP lactate lipase magnesium CT abdomen pelvis with IV contrast UA. Patient received morphine for treatment. Labs personally reviewed demonstrate White blood cell count 14 hemoglobin 16.[address] imaging personally interpreted demonstrate dilated proximal colon with transition point concerning for obstruction. Patient has been evaluated by colorectal surgery Dr. Fowler with current plan to initiate chemotherapy prior to surgical intervention. However patient has developed an obstruction at this point. I had a interactive conversation with our general surgery colleagues who were uncomfortable with extent of patient's cancer in the setting of obstruction. I had an interactive discussion with colorectal surgery with recommendations to transfer to ED for evaluation by colorectal surgery. Accepted to [facility] ED by Dr. Villanueva. Of note, social determinants of health include chronic tobacco use. Critical Care Critical Care Time Critical Care Time: No
--- NOTE | 2024-08-31 10:46 | CT_ITS ---
PROCEDURE INFORMATION: Exam: CT Abdomen And Pelvis With Contrast Exam date and time: 08/31/2024 11:19 AM Age: 73 years old Clinical indication: Abdominal pain; Additional info: Rlq abdominal pain, obstruction suspected TECHNIQUE: Imaging protocol: Computed tomography of the abdomen and pelvis with contrast. Radiation optimization: All CT scans at this facility use at least one of these dose optimization techniques: automated exposure control; mA and/or kV adjustment per patient size (includes targeted exams where dose is matched to clinical indication); or iterative reconstruction. Contrast material: ISOVUE; Contrast volume: 75 ml; Contrast route: IV; COMPARISON: CT ANGIO ABDOMEN PELVIS 06/06/2024 11:29 AM FINDINGS: Lungs: Bibasilar atelectasis. Liver: Micronodular appearance of the liver surface, nonspecific, but concerning for cirrhosis. Trace perihepatic ascites. Gallbladder and biliary ducts: Normal. No calcified stones. No ductal dilation. Pancreas: Normal. No ductal dilation. Spleen: Normal. No splenomegaly. Adrenal glands: Normal. No mass. Kidneys and ureters: There is a 4.2 cm simple cyst in the left interpolar segment, requiring no further follow-up. No suspicious enhancing renal mass. No hydroureteronephrosis. No renal stone. Stomach and bowel: There is a 3.2 x 4.7 x 3.4 cm duodenal diverticulum. There is an area of abnormal, irregular bowel wall thickening in the mid ascending colon measuring up to 1.6 cm in thickness, most consistent with malignancy, given persistence since 06/06/2024 (series 3, image 60). The cecum, ileum, and jejunum are dilated and fluid-filled, while the transverse colon, descending colon, and sigmoid colon are decompressed, consistent with a bowel obstruction. Appendix: The appendix is dilated to 1.5 cm, with a hyperenhancing mucosal wall, and surrounding inflammatory changes, concerning for acute appendicitis. Intraperitoneal space: Trace pelvic ascites. No pneumoperitoneum. Vasculature: Moderate aortoiliac atherosclerosis. Lymph nodes: No significant lymphadenopathy. Urinary bladder: Unremarkable as visualized. Reproductive: Unremarkable as visualized. Bones/joints: No suspicious lytic or blastic bony lesions. No acute fracture. Soft tissues: Unremarkable. IMPRESSION: 1. There is an area of abnormal, irregular bowel wall thickening in the mid ascending colon measuring up to 1.6 cm in thickness, most consistent with malignancy, given persistence since 06/06/2024 (series 3, image 60). The cecum, ileum, and jejunum are dilated and fluid-filled, while the transverse colon, descending colon, and sigmoid colon are decompressed, consistent with a bowel obstruction. 2. The appendix is dilated to 1.5 cm, with a hyperenhancing mucosal wall, and surrounding inflammatory changes, concerning for acute appendicitis. 3. Micronodular appearance of the liver surface, nonspecific, but concerning for cirrhosis. Trace perihepatic ascites. 4. Trace pelvic ascites. No pneumoperitoneum. COMMENTS: Consistent with the [employer]'s Incidental Findings Committee white paper (J Am Glenn Radiol 2018): Any incidental renal lesion less than 1 cm or classified as too small to characterize, or any incidental cystic renal lesion characterized as simple-appearing, is likely benign. No follow-up imaging is recommended for these lesions per consensus recommendations based on imaging criteria. THIS REPORT CONTAINS FINDINGS THAT MAY BE CRITICAL TO PATIENT CARE. The findings were verbally communicated via telephone conference at 11:59 AM EST on 08/31/2024 with Elena Adair. The findings were acknowledged and understood.
[2024-08-31 10:54] LABS: Basophils # 0.1 K/mm3 (0-0.2); Basophils % 0.8 % (0.1-2.0); Eosinophils # 0.1 K/mm3 (0.0-0.4); Eosinophils % 0.4 % (0.1-12.0); Hematocrit 48.4 % (37.0-47.0); Hemoglobin 16.5 g/dL (12.2-16.2); Lymphocytes # 2.7 K/mm3 (0.7-4.5); Mean Corpuscular HGB Conc 34.2 g/dL (31.8-35.4); Mean Corpuscular Volume 90.8 fl (81-99); Mean Platelet Volume 7.9 fl (7.4-10.4); Monocytes # 0.7 K/mm3 (0.1-1.0); Monocytes % 4.7 % (1.7-9.3); Neutrophils # 10.5 K/mm3 (1.8-7.8); Neutrophils % 75.2 % (37.0-80.0); Platelet Count 383 K/mm3 (142-424); Red Blood Count 5.33 M/mm3 (4.20-5.40); Red Cell Distribution Width 14.3 % (11.5-17.5)
[2024-08-31 10:56] LABS: Albumin Level 4.3 g/dl (3.5-5.0); Chloride 107 mmol/L (98-107); Sodium 138 mmol/L (136-145)
[2024-08-31] MEDS: ONDANSETRON 4MG/2ML VIAL 4 MG IV (10:56)
[2024-08-31] MEDS: MORPHINE 2MG/ML SYRINGE 2 MG IV (10:56)
[2024-08-31 10:59] LABS: Alanine Aminotransferase 16 U/L (12-78); Albumin/Globulin Ratio 1.3 (1.1-1.8); Alkaline Phosphatase 92 U/L (38-126); Aspartate Amino Transferase 26 U/L (14-36); Bilirubin,Total 0.8 mg/dl (0.2-1.3); Carbon Dioxide 23 mmol/L (22.0-30.0); Globulin 3.3 g/dL (1.3-3.2); HIV (1&2) Antibody Rapid NONREACTIVE (NONREACTIVE); Total Protein,Serum 7.6 g/dl (6.3-8.2)
[2024-08-31 11:00] LABS: Calcium 9.7 mg/dl (8.4-10.2); Glucose 122 mg/dl (74-100); Lipase 73 U/L (23-300)
[2024-08-31 11:04] LABS: Blood Urea Nitrogen 16 mg/dl (7-17); Creatinine Clearance Estimated 47 mL/min (50-200); Estimated Glomerular Filt Rate 44 ml/min (>60); GFR (African American) 53 ML/MIN (>60)
--- NOTE | 2024-08-31 11:09 | PC.NURSE ---
Pt out of room with Rad for CT
[2024-08-31] MEDS: SODIUM CHLORIDE 0.9% 10ML SYR (RAD ONLY) 10 ML IV (11:19)
[2024-08-31] MEDS: IOPAMIDOL-370 (76%);100ML BOTTLE 75 ML IV (11:19)
--- NOTE | 2024-08-31 11:50 | PC.NURSE ---
Called Lab as they have not received in the Lactate that was sent at 1018. Order was adjusted from venous lactic to lactate @ 1148
--- NOTE | 2024-08-31 11:56 | PC.NURSE ---
Dr. Adair s/w [facility] for critical findings
--- NOTE | 2024-08-31 11:57 | PC.NURSE ---
paged general surgery for ER MD, general surgery called back
--- NOTE | 2024-08-31 12:03 | PC.NURSE ---
Dr. Adair at bedside
--- NOTE | 2024-08-31 12:04 | PC.NURSE ---
Spoke to tx center regarding tx for colorectal surgery. They advised they would call us back
--- NOTE | 2024-08-31 12:04 | PC.NURSE ---
Calling [facility] for transfer & s/w [place]. Images have been power-shared & radiology is preparing a disc
[2024-08-31 12:08] LABS: Lactic Acid 1.2 mmol/L (0.7-2.1)
--- NOTE | 2024-08-31 12:43 | PC.NURSE ---
Dr. Turner [facility]
[2024-08-31 13:08] LABS: Microscopic, Urine URINE MICROSCOPIC (MICROSCOPIC)
[2024-08-31 13:13] LABS: Appearance,Urine CLEAR (Clear); Blood, Urine 1+ (Negative); Color,Urine YELLOW (Yellow); Glucose,Urine (UA) Negative (Negative); Ketones,Urine Negative (Negative); Leukocyte Esterase,Urine Negative (Negative); Nitrate,Urine Negative (Negative); PH,Urine 5.5 (5.0-8.5); Protein,Urine TRACE (Negative); Urobilinogen,Urine 0.2 EU/dl (0.2)
[2024-08-31 13:17] LABS: Bilirubin,Urine 1+ (Negative)
[2024-08-31] MEDS: MORPHINE 4MG/ML SYRINGE 4 MG IV (13:19)
[2024-08-31 13:41] LABS: WBC,Urine Occasional #/hpf (0-3)
--- NOTE | 2024-08-31 14:11 | PC.NURSE ---
Addendum entered by Joi Saleh RN 08/31/24 14:12: Call occurred at 1358 Original Note: Called [facility] transfer center d/t still awaiting call back from colorectal surgery, states the on-call surgery in currently in surgery and will re-page them.
--- NOTE | 2024-08-31 14:49 | PC.NURSE ---
Dr. Adair is s/w Dr. Wilder with , he accepts pt. Dr. Adair states pt to transfer via Ambulance- BLS.
--- NOTE | 2024-08-31 14:59 | PC.NURSE ---
Report given to MELINDA Albarran at [facility].
[2024-09-01 08:12] LABS: HCV Ab Non Reactive (Non Reactive)
== END 2024-08-31 15:36 | disposition other institution (70) ==
PROVIDERS: Emergency Provider Student in an Organized Health Care Education/Training Program
DX: K56.609 Unspecified intestinal obstruction, unspecified as to partial versus complete obstruction (principal); R10.9 Unspecified abdominal pain; R11.10 Vomiting, unspecified; R14.0 Abdominal distension (gaseous); C18.9 Malignant neoplasm of colon, unspecified
CPT/HCPCS: 74177; 80053; 81001; 83605; 83690; 83735; 85025; 86803; 87389; 96374; 96375; 99285; J2270; J2405; Q9967

== ENCOUNTER 2024-09-17 10:47 | Outpatient (CLI) | payer MEDICARE, SELFPAY ==
[2024-09-17] MEDS: SODIUM CHLORIDE 0.9% 10ML FLUSH SYRINGE 10 ML IV (11:10)
[2024-09-17 11:33] LABS: Basophils # 0.1 K/mm3 (0-0.2); Eosinophils # 0.2 K/mm3 (0.0-0.4); Eosinophils % 1.7 % (0.1-12.0); Hematocrit 40.7 % (37.0-47.0); Hemoglobin 13.8 g/dL (12.2-16.2); Lymphocytes # 3.6 K/mm3 (0.7-4.5); Lymphocytes % 33.2 % (10-50); Mean Corpuscular Volume 91.1 fl (81-99); Mean Platelet Volume 7.4 fl (7.4-10.4); Monocytes # 0.6 K/mm3 (0.1-1.0); Monocytes % 5.4 % (1.7-9.3); Neutrophils # 6.3 K/mm3 (1.8-7.8); Neutrophils % 58.7 % (37.0-80.0); Platelet Count 420 K/mm3 (142-424); Red Blood Count 4.47 M/mm3 (4.20-5.40); Red Cell Distribution Width 14.1 % (11.5-17.5); White Blood Count 10.8 K/mm3 (4.8-10.8)
[2024-09-17 12:07] LABS: Alanine Aminotransferase 16 U/L (12-78); Albumin Level 3.8 g/dl (3.5-5.0); Albumin/Globulin Ratio 1.4 (1.1-1.8); Alkaline Phosphatase 72 U/L (38-126); Aspartate Amino Transferase 23 U/L (14-36); Bilirubin,Total 0.4 mg/dl (0.2-1.3); Blood Urea Nitrogen 11 mg/dl (7-17); Calcium 9.4 mg/dl (8.4-10.2); Carbon Dioxide 22 mmol/L (22.0-30.0); Chloride 109 mmol/L (98-107); Estimated Glomerular Filt Rate 49 ml/min (>60); GFR (African American) 59 ML/MIN (>60); Globulin 2.8 g/dL (1.3-3.2); Glucose 86 mg/dl (74-100); Sodium 138 mmol/L (136-145); Total Protein,Serum 6.6 g/dl (6.3-8.2)
[2024-09-17 12:21] LABS: Anion Gap 11.2 mEq/L (5-15); Potassium 4.2 mmoL/L (3.5-5.1)
[2024-09-18 08:48] LABS: CEA 1.3 ng/mL (0.0-4.7)
== END 2024-09-17 11:20 | disposition home or self-care (01) ==
LOC: INF 10:48
PROVIDERS: PCP Nurse Practitioner Family; Visit Provider Internal Medicine Medical Oncology
DX: C20 Malignant neoplasm of rectum (principal); C77.5 Secondary and unspecified malignant neoplasm of intrapelvic lymph nodes
CPT/HCPCS: 36591; 80053; 82378; 85025; J1642

== ENCOUNTER 2024-10-01 08:32 | Outpatient (CLI) | payer MEDICARE, SELFPAY ==
[2024-10-01] VITALS (11 sets, daily range): BP systolic 129–158; BP diastolic 54–70; PULSE 57–72; RESP 18; O2SAT 97
[2024-10-01 09:02] LABS: Basophils # 0.1 K/mm3 (0-0.2); Basophils % 0.7 % (0.1-2.0); Eosinophils # 0.3 K/mm3 (0.0-0.4); Eosinophils % 2.3 % (0.1-12.0); Hematocrit 38.1 % (37.0-47.0); Hemoglobin 13.1 g/dL (12.2-16.2); Lymphocytes # 3.6 K/mm3 (0.7-4.5); Lymphocytes % 33.9 % (10-50); Mean Corpuscular HGB Conc 34.4 g/dL (31.8-35.4); Mean Corpuscular Hemoglobin 30.6 pg (27.0-31.2); Mean Platelet Volume 9.5 fl (7.4-10.4); Monocytes # 0.7 K/mm3 (0.1-1.0); Monocytes % 6.3 % (1.7-9.3); Neutrophils # 6.1 K/mm3 (1.8-7.8); Neutrophils % 56.5 % (37.0-80.0); Platelet Count 281 K/mm3 (142-424); Red Blood Count 4.28 M/mm3 (4.20-5.40); Red Cell Distribution Width 13.5 % (11.5-17.5); White Blood Count 10.7 K/mm3 (4.8-10.8)
[2024-10-01 09:13] LABS: Albumin Level 3.8 g/dl (3.5-5.0); Chloride 108 mmol/L (98-107); Potassium 4.3 mmoL/L (3.5-5.1); Sodium 133 mmol/L (136-145)
[2024-10-01 09:15] LABS: Blood Urea Nitrogen 13 mg/dl (7-17); Estimated Glomerular Filt Rate 44 ml/min (>60); GFR (African American) 53 ML/MIN (>60)
[2024-10-01 09:16] LABS: Alanine Aminotransferase 19 U/L (12-78); Albumin/Globulin Ratio 1.4 (1.1-1.8); Alkaline Phosphatase 67 U/L (38-126); Anion Gap 7.3 mEq/L (5-15); Aspartate Amino Transferase 24 U/L (14-36); Bilirubin,Total 0.5 mg/dl (0.2-1.3); Calcium 9.6 mg/dl (8.4-10.2); Carbon Dioxide 22 mmol/L (22.0-30.0); Globulin 2.7 g/dL (1.3-3.2); Glucose 83 mg/dl (74-100); Total Protein,Serum 6.5 g/dl (6.3-8.2)
[2024-10-01] MEDS: CALCIUM GLUCONATE 1,000 MG, MAGNESIUM SULFATE 1 GM in DEXTROSE 5 % IN WATER 100 ML 224 MG IV ×2 (09:39→12:45)
[2024-10-01] MEDS: diphenhydrAMINE 25MG CAPSULE 25 MG PO (09:47)
[2024-10-01] MEDS: MONTELUKAST SODIUM 10MG TAB 10 MG PO (09:47)
[2024-10-01] MEDS: ONDANSETRON 4MG ODT 16 MG SL (09:48)
[2024-10-01] MEDS: DEXAMETHASONE 4MG TABLET 12 MG PO (09:48)
[2024-10-01] MEDS: FAMOTIDINE 20MG TABLET 20 MG PO (09:48)
[2024-10-01] MEDS: OXALIPLATIN IV (10:12)
[2024-10-01] MEDS: DEXTROSE 5% IV (10:12)
[2024-10-01] MEDS: WATER IV (10:12)
[2024-10-01] MEDS: SODIUM CHLORIDE 0.9% 10ML FLUSH SYRINGE 10 ML IV (13:15)
[2024-10-03 14:15] LABS: CEA 1.4 ng/mL (0.0-4.7)
--- NOTE | 2024-10-03 16:45 | DIET.NUTRFU ---
Chemo consult: Spoke to patient and she denies any change appetite of GI distress. Had no dietary concerns. Provided contact information is appetite changes.
== END 2024-10-01 13:19 | disposition home or self-care (01) ==
PROVIDERS: PCP Nurse Practitioner Family; Visit Provider Internal Medicine Medical Oncology
DX: C20 Malignant neoplasm of rectum (principal); C77.5 Secondary and unspecified malignant neoplasm of intrapelvic lymph nodes
CPT/HCPCS: 80053; 82378; 85025; 96413; 96415; J1642; J7060; J8540; J9263; Q0162

== ENCOUNTER 2024-10-21 11:18 | Inpatient (IN) | payer MEDICARE, SELFPAY ==
[2024-10-21] VITALS (26 sets, daily range): BP systolic 107–141; BP diastolic 61–90; PULSE 67–102; RESP 13–33; TEMP 36.4–36.5; O2SAT 85–100; BMI 23.5
--- NOTE | 2024-10-21 11:35 | ECG_ITS ---
APPROVED REPORT Exam: Resting ECG HR:91 bpm ECG Measurements Heart Rate 91 AXES WY 181 P 70 QRSd 110 QRS -71 QT 377 T 99 QTc 425 Conclusion SINUS RHYTHM PATTERN CONSISTENT WITH PULMONARY DISEASE LEFT ANTERIOR FASCICULAR BLOCK [QRS AXIS <= -45, QR IN I, RS IN II] LEFT VENTRICULAR HYPERTROPHY AND ST-T CHANGE [VOLTAGE CRITERIA PLUS ST/T ABNORMALITY] No STEMI Electronically signed by : MAGALI KELSEY, 10/22/2024 16:01:39
--- NOTE | 2024-10-21 12:15 | PC.NURSE ---
Called lab to obtain blood-work as ordered by Dr. Aj
[2024-10-21 12:44] LABS: Coronavirus 19, PCR Not Detected (NotDetected); Influenza A, PCR Not Detected (NotDetected); Influenza B, PCR Not Detected (NotDetected)
[2024-10-21 12:46] LABS: VBG Base Excess -5.8 mmol/L (-2.4-2.3); VBG HCO3 19.4 mmol/L (23-30); VBG Oxygen Saturation 72.9 % (50-70); VBG PCO2 34.1 mmol/L (35-51); VBG PH 7.37 mmol/L (7.31-7.41); VBG PO2 39.2 mmol/L (28-40); VBG Total CO2 20.5 mmol/L (23-27)
[2024-10-21 12:47] LABS: Lactate Venous 2.8 mmol/L (0.4-2.0)
[2024-10-21 12:49] LABS: Basophils % 0.3 % (0.1-2.0); Eosinophils % 0.3 % (0.1-12.0); Hematocrit 46.5 % (37.0-47.0); Hemoglobin 16.6 g/dL (12.2-16.2); Lymphocytes # 2.5 K/mm3 (0.7-4.5); Lymphocytes % 21.2 % (10-50); Mean Corpuscular HGB Conc 35.7 g/dL (31.8-35.4); Mean Corpuscular Hemoglobin 30.6 pg (27.0-31.2); Mean Corpuscular Volume 85.8 fl (81-99); Mean Platelet Volume 9.8 fl (7.4-10.4); Monocytes # 1.4 K/mm3 (0.1-1.0); Monocytes % 12.2 % (1.7-9.3); Neutrophils # 7.7 K/mm3 (1.8-7.8); Neutrophils % 65.7 % (37.0-80.0); Platelet Count 224 K/mm3 (142-424); Red Blood Count 5.42 M/mm3 (4.20-5.40); Red Cell Distribution Width 13.8 % (11.5-17.5); White Blood Count 11.8 K/mm3 (4.8-10.8)
[2024-10-21 12:52] LABS: Albumin Level 4.7 g/dl (3.5-5.0); Chloride 94 mmol/L (98-107); Sodium 131 mmol/L (136-145)
[2024-10-21 12:53] LABS: Potassium 3.8 mmoL/L (3.5-5.1)
--- NOTE | 2024-10-21 12:54 | ED_ITS ---
Discharge Plan Disposition Patient Disposition: Admitted Condition: Good Clinical Impressions Clinical Impression: LENA (acute kidney injury), Abdominal pain, Hyponatremia, General weakness, Pancreatitis, Enteritis Discharge ED Provider: Natalia Aj General Adult HPI General Chief complaint: Weakness Stated complaint: weakness, cant eat x 2 days, V/D, Time Seen by Provider: 10/21/24 11:54 Mode of Arrival: Wheelchair Source of Information: Patient Limitations: No Limitations Description of Symptoms (Recalled from ER Triage Doc. by RN): PT REPORTS WEAKNESS X 2-3 DAYS, NEAR SYNCOPE, ABDOMINAL CRAMPING AND CHANGE IN OSTOMY OUTPUT. LAST CHEMO 10/01 History of Present Illness HPI narrative: This patient is a 73-year-old female with a history of colon adenocarcinoma with resultant bowel obstruction status post laparoscopic diverting loop ileostomy on 09/02/2024 currently on chemotherapy managed at presenting to the emergency department for evaluation with concern for generalized weakness for the last 2 to 3 days, nausea and vomiting, lower abdominal pain/cramping, and an increase in ostomy output. Patient states that for the last 2 to 3 days, anytime she eats or drink anything, it goes straight through her and comes out as loose, watery, ostomy output. This is much higher output than usual. She also notes that is different in color, as a fluttering almost green. She notes that if it does not come out her ostomy immediately, she has nausea and vomiting this nonbloody and nonbilious. No fevers, chest pain, shortness of breath, cough, urinary symptoms, or other concerns. Related Data Home Medications ?Medication ?Instructions ?Recorded ?Confirmed aspirin 81 mg chewable tablet 81 mg PO DAILY 08/15/24 10/21/24 rosuvastatin 20 mg tablet 20 mg PO HS 08/16/24 10/21/24 lisinopril 10 mg tablet 20 mg PO DAILY 10/21/24 10/21/24 ondansetron 8 mg disintegrating 8 mg PO DAILY 10/21/24 10/21/24 tablet prochlorperazine maleate 10 mg 10 mg PO Q6HP PRN nausea and 10/21/24 10/21/24 tablet (Compazine) vomiting Allergies Allergy/AdvReac Type Severity Reaction Status Date / Time No Known Allergies Allergy Verified 09/17/24 10:44 PFSH PFSH Disclaimer: The information contained in this section may have been updated after the patient was seen, as this information can be updated by other users. Medical History History of colon cancer Surgical History History of neck surgery History of colonoscopy Family History Sister Heart attack Mother Diabetes Other Family history of CVA Family history of brain aneurysm Social History Smoking Status: Current every day smoker alcohol intake: never substance use type: denies use current occupational status: unemployed and retired Travel in the last 8 weeks: None marital status: Have you lived/traveled outside [place] in past 30 days?: No Contact w/someone who lives/traveled outside US past 30 days?: No Exposure to someone with infectious disease in past 14 days?: No Do you have a fever (greater than 100.4 F or 38 C)?: No Have you tested positive for COVID-19: No Exposed to someone with COVID-19 in past 14 days?: No Do you have a sore throat?: No Do you have a cough?: No Do you have any weakness?: Yes Do you have any diarrhea?: Yes Are you experiencing any unusual bleeding?: No Do you have any muscle aches/pain?: No Do you have any abdominal pain?: No Are you experiencing loss of taste or smell?: No Other Medical History Have you received the Flu Vaccine for this season: No Have you received the Pneumonia Vaccine: No ROS Obtained: Yes All systems reviewed & no additional complaints except as documented Physical Exam General General appearance: alert and in no apparent distress Head Head exam: atraumatic and normocephalic Eye Eye exam: Present normal appearance, PERRL and EOMI ENT ENT exam: Present mucous membranes dry and normal external ear exam Neck Neck exam: Present normal inspection, full ROM and trachea midline; Absent tenderness Chest Chest inspection: Present normal inspection and symmetric chest wall rise; Absent tenderness Respiratory Respiratory exam: Present normal lung sounds bilaterally; Absent respiratory distress, wheezes, stridor or accessory muscle use Cardiovascular Cardiovascular exam: Present regular rate and normal rhythm Abdominal Exam Abdominal exam: Present tenderness (Left lower quadrant) and guarding (Left lower quadrant); Absent distention, rebound or rigidity Comment: Ostomy in place with very thin light brown output Extremities Exam Extremities exam: Present normal inspection, full ROM and normal capillary refill; Absent tenderness or edema Back Exam Back exam: Present normal inspection and full ROM; Absent tenderness Neurological Exam Neurological exam: Present alert, oriented X3, CN II-XII intact and normal gait; Absent motor sensory deficit Psychiatric Psychiatric exam: Present normal affect and normal mood Skin Skin exam: Present warm and dry Medical Decision Making Medical Records Medical records reviewed: Yes I reviewed the patient's medical records. Screening: Per USPSTF and CDC recommendations, given the prevalence of disease in our region, it is our hospital?s policy to screen for HIV and viral Hepatitis for all patients aged 18 and over and those with ongoing risk factors. Jonny Inquiry Pt receiving controlled substance: No Vital Signs: 10/21/24 11:19 10/21/24 11:31 10/21/24 11:45 Temperature 97.6 F Temperature Source Oral Pulse Rate 95 H 89 Pulse Rate [Apical] 100 H Respiratory Rate 18 21 17 Blood Pressure Blood Pressure [Right Arm] 129/90 Blood Pressure Mean [Right Arm] 103 Blood Pressure Source [Right Arm] Automatic Cuff Blood Pressure Position [Right Arm] Sitting 02 Sat by Pulse Oximetry 99 100 98 Oxygen Delivery Method Room Air 10/21/24 12:00 10/21/24 12:15 10/21/24 12:30 Temperature Temperature Source Pulse Rate 92 H 88 89 Pulse Rate [Apical] Respiratory Rate 19 29 H Blood Pressure 135/88 135/85 Blood Pressure [Right Arm] Blood Pressure Mean [Right Arm] Blood Pressure Source [Right Arm] Blood Pressure Position [Right Arm] 02 Sat by Pulse Oximetry 97 96 98 Oxygen Delivery Method 10/21/24 12:45 10/21/24 13:00 10/21/24 13:20 Temperature Temperature Source Pulse Rate 87 86 96 H Pulse Rate [Apical] Respiratory Rate 21 Blood Pressure 124/79 Blood Pressure [Right Arm] Blood Pressure Mean [Right Arm] Blood Pressure Source [Right Arm] Blood Pressure Position [Right Arm] 02 Sat by Pulse Oximetry 97 97 98 Oxygen Delivery Method 10/21/24 13:30 Temperature Temperature Source Pulse Rate 98 H Pulse Rate [Apical] Respiratory Rate 19 Blood Pressure 126/78 Blood Pressure [Right Arm] Blood Pressure Mean [Right Arm] Blood Pressure Source [Right Arm] Blood Pressure Position [Right Arm] 02 Sat by Pulse Oximetry 98 Oxygen Delivery Method Lab Data Lab results reviewed: Yes I reviewed the patient's lab results. Lab Results 10/21/24 12:36: WBC 11.8 H, RBC 5.42 H, Hgb 16.6 H, Hct 46.5, MCV 85.8, MCH 30.6, MCHC 35.7 H, RDW 13.8, Plt Count 224, MPV 9.8, Neut % (Auto) 65.7, Lymph % (Auto) 21.2, [place] % (Auto) 12.2 H, Eos % (Auto) 0.3, Baso % (Auto) 0.3, Neut # (Auto) 7.7, Lymph # (Auto) 2.5, [place] # (Auto) 1.4 H, Eos # (Auto) 0.0, Baso # (Auto) 0.0, VBG pH 7.37, VBG pCO2 34.1 L, VBG pO2 39.2, VBG HCO3 19.4 L, VBG Total CO2 20.5 L, VBG O2 Saturation 72.9 H, VBG Base Excess -5.8 L, VBG Lactic Acid 2.8 H, Sodium 131 L, Potassium 3.8, Chloride 94 L, Carbon Dioxide 21 L, A nion Gap 19.8 H, BUN 61 H, Creatinine 3.00 H, Estimated Creat Clear 18, E stimated GFR 15 L*, Est GFR ( Amer) 18 L*, Glucose 120 H, Calcium 9.9, P hosphorus 6.4 H, Magnesium 1.9, Total Bilirubin 0.6, AST 38 H, ALT 34, Alkaline Phosphatase 96, Total Protein 7.6, Albumin 4.7, Globulin 2.9, Albumin/Globulin Ratio 1.6, Lipase 477 H, TSH 1.46, Thyroxine (T4) 15.3 H, HCV Ab MADELINE w/Rflx PCR Qn Negative, HIV Ag/Ab Combo Qual Negative 10/21/24 12:38: SARS-CoV-2 (PCR) Not detected, Influenza A Untype (PCR) Not detected, Influenza Type B (PCR) Not detected 10/21/24 12:36 10/21/24 12:36 Orders (Tests/Meds): ED MEDICATIONS Discontinued Medications Generic Name Dose Route Start Last Admin Trade Name Nicole PRN Reason Stop Dose Admin Acetaminophen 1,000 mg 10/21/24 12:39 10/21/24 13:04 Acetaminophen 1,000mg/100ml Vial IV 10/21/24 12:40 1,000 mg ONCE ONE Administration Fluticasone Propionate 1 spray 10/21/24 12:52 10/21/24 13:30 Fluticasone Prop 50mcg Nasal [place] 16gm NS 10/21/24 12:53 Not Given ONCE ONE Lactated Ringer's 1,000 mls @ 999 mls/hr 10/21/24 12:39 10/21/24 14:29 Lactated Ringer's 1000 Ml Bag IV 10/21/24 13:39 Not Given .Q1H1M ONE Lactated Ringer's 2,040 mls @ 1,020 mls/hr 10/21/24 13:01 10/21/24 13:00 Lactated Ringer's 1000 Ml Bag 30 ml/kg infuse over 2 hr (2040 ml) 10/21/24 15:00 1,020 mls/hr IV Administration .Q2H ONE Ketorolac Tromethamine 15 mg 10/21/24 12:39 10/21/24 13:04 Ketorolac 30mg/Ml Vial IV 10/21/24 12:40 15 mg ONCE ONE Administration Ondansetron HCl 4 mg 10/21/24 12:39 10/21/24 13:04 Ondansetron 4mg/2ml Vial IV 10/21/24 12:40 4 mg ONCE ONE Administration ORDERS Category Date Time Status CT abdomen pelvis wo con Stat Cat Scan 10/21/24 13:[address] chest wo con Stat Cat Scan 10/21/24 13:08 Completed Complete Blood Count Auto Diff Stat Lab 10/21/24 12:36 Completed Comprehensive Metabolic Panel Stat Lab 10/21/24 12:36 Completed HIV Combo Stat Lab 10/21/24 12:36 Completed Hepatitis C Ab Qual. W/ RFX Stat Lab 10/21/24 12:36 Completed Lipase Stat Lab 10/21/24 12:36 Completed MAG [Magnesium] Stat Lab 10/21/24 12:36 Completed PHOS [Phosphorous] Stat Lab 10/21/24 12:36 Completed Rapid PCR Covid and Flu A/B Stat Lab 10/21/24 12:38 Completed T4 (Thyroxine) Stat Lab 10/21/24 12:36 Completed TSH [Thyroid Stimulating Hormone] Stat Lab 10/21/24 12:36 Completed UA [Urinalysis and Microscopic] Stat Lab 10/21/24 12:12 Ordered VBG [Venous Blood Gas] Stat RT 10/21/24 12:36 Completed ECG Data Tracing #1: I reviewed this ECG and interpreted as documented below: Normal sinus rhythm ventricular rate of 91 bpm. Left anterior fascicular block. Some motion artifact degrades study. No acute ST elevations concerning for ischemia. Normal QTc interval ECG initial impression date: 10/21/24 ECG initial impression time: 11:36 Medical Decision Narrative: In summary, this patient is a 73-year-old female presenting to the Emergency Department for evaluation of general weakness, abdominal pain, nausea, vomiting, and increase in ostomy output.. Differential diagnoses considered include but are not limited to colitis, pancreatitis, gastritis, bowel obstruction, LENA, dehydration. Ruling out the most morbid conditions drove assessment. It should be noted patient's history includes colon cancer on chemo which may or may not be at goal therapy. This complicates all aspects of care by increasing patient's risk for morbidity. I reviewed patient's past medical records and noted admission at in September and colectomy as detailed in HPI. I also noted oncology notes here and documentation of infusion therapy with oxaliplatin. On exam, the patient is lying in bed in no acute distress. She is nontoxic- appearing but does appear clinically dry. She does have abdominal tenderness, especially in the left side. She also has increased watery ostomy output. Workup included broad lab evaluation to evaluate for infectious and metabolic etiologies as well as an initial plan for CTA PE and CT abdomen pelvis with IV contrast to further assess. Labs demonstrated concern for mild leukocytosis. Patient has significant LENA with a creatinine up to 3 from 1.2. She also has mild hyponatremia with a sodium of 131. Anion gap, BUN, CO2 all abnormal consistent with significant volume contraction. Lipase is elevated at 477. Given significant LENA, I considered sticking with plan for CTs with contrast, however I decided to avoid IV contrast and obtain CT scan of the chest, abdomen, and pelvis without IV contrast to see if we find anything concerning and avoid any sort of potential harm to the kidneys. She was given a sepsis bolus of IV fluids at 30 cc/kg. Prior to knowledge about the patient's LENA, she was given IV Zofran, Toradol, acetaminophen for symptomatic improvement. On reassessment, the patient is resting comfortably states that she is feeling a little bit better. Again, labs significant for mild leukocytosis, significant LENA and concerns for volume contraction based on CMP, elevated lipase at 477. CT scans were read by radiology and noted improvement in appendix dilation that been present on prior imaging without secondary findings concerning for appendicitis, and of course resolution of her bowel obstruction with this new diverting loop ileostomy. Ultimately, I feel the patient would benefit from admission for medical management of nausea, vomiting, and increased ostomy output with dehydration and LENA. Differentials for this include enteritis versus dumping syndrome. I had an interactive discussion with the hospitalist who wanted me to get opinions from general surgery just to make sure that we did not need to be doing anything else, and Dr. Piper with general surgery advised medical management of her symptoms and lab derangements at this time. Given this, the hospitalist admitted the patient in stable condition for further evaluation and management. Critical Care Critical Care Time Critical Care Time: No
[2024-10-21 12:55] LABS: Alanine Aminotransferase 34 U/L (12-78); Albumin/Globulin Ratio 1.6 (1.1-1.8); Alkaline Phosphatase 96 U/L (38-126); Anion Gap 19.8 mEq/L (5-15); Aspartate Amino Transferase 38 U/L (14-36); Bilirubin,Total 0.6 mg/dl (0.2-1.3); Blood Urea Nitrogen 61 mg/dl (7-17); Carbon Dioxide 21 mmol/L (22.0-30.0); Creatinine Clearance Estimated 18 mL/min (50-200); Estimated Glomerular Filt Rate 15 ml/min (>60); GFR (African American) 18 ML/MIN (>60); Globulin 2.9 g/dL (1.3-3.2); Lipase 477 U/L (23-300); Total Protein,Serum 7.6 g/dl (6.3-8.2)
[2024-10-21 12:56] LABS: Calcium 9.9 mg/dl (8.4-10.2); Glucose 120 mg/dl (74-100)
[2024-10-21] MEDS: LACTATED RINGERS 1000ML 2,040 ML 1020 ML IV (13:00)
[2024-10-21] MEDS: ONDANSETRON 4MG/2ML VIAL 4 MG IV (13:04)
[2024-10-21] MEDS: KETOROLAC 30MG/ML VIAL 15 MG IV (13:04)
[2024-10-21] MEDS: ACETAMINOPHEN 1,000MG/100ML VIAL 1000 MG IV (13:04)
--- NOTE | 2024-10-21 13:08 | CT_ITS ---
FINAL REPORT TECHNIQUE: Axial images through the abdomen and pelvis were performed without contrast. This study was performed with techniques to keep radiation doses as low as reasonably achievable, (ALARA). Individualized dose reduction techniques using automated exposure control or adjustment of mA and/or kV according to the patient's size were employed. CLINICAL HISTORY: abd pain, inc ostomy output, LENA, elevated lipase COMPARISON: 08/31/2024 FINDINGS: Abdomen: The liver parenchyma is homogeneous. Previously noted small amount of fluid around the liver has resolved. The gallbladder is present. The spleen, pancreas, and adrenal glands are without acute abnormality. A benign-appearing cyst in the left kidney measures 4.4 cm in diameter. The right kidney is unremarkable. There is ectasia of the abdominal aorta measuring up to 2.1 cm. Pelvis: A right anterior pelvic wall ostomy is noted. There are no abnormally dilated loops of bowel. The appendix is not enlarged but less distended than on the prior exam. The appendix measures 8 mm on today's exam and previously measured 15 mm. There is no surrounding inflammation. The uterus is present and lies eccentric to the right. There is no free fluid or adenopathy. IMPRESSION: Resolved ascites. The appendix is mildly enlarged but is less distended than on the prior exam. New, right anterior pelvic wall ostomy. Distended loops of bowel are no longer seen. Reviewed, Interpreted and Dictated by Richard Schofield MD Transcribed by Yany Rosen Authenticated and [facility]
--- NOTE | 2024-10-21 13:08 | CT_ITS ---
FINAL REPORT TECHNIQUE: Axial images were obtained through the chest without contrast. This study was performed with techniques to keep radiation doses as low as reasonably achievable (ALARA). Individualized dose reduction techniques using automated exposure control or adjustment of mA and/or kV according to the patient's size were employed. CLINICAL HISTORY: LENA, general illness COMPARISON: None FINDINGS: CT CHEST: A chest port is present with its tip in the superior vena cava. The lungs are clear. The heart size is normal. There is lipomatous hypertrophy of the interatrial septum. There is no pericardial or pleural effusion. Limited images of the upper abdomen demonstrate a 4.3 cm hypodense region, likely a left renal cyst. No suspicious infiltrate or nodule identified. IMPRESSION: No acute cardiopulmonary abnormality is identified. 4.3 cm hypodense region in the left kidney, likely a renal cyst. Reviewed, Interpreted and Dictated by Richard Schofield MD Transcribed by Lala Marie Authenticated and [facility]
[2024-10-21 13:31] LABS: Magnesium 1.9 mg/dl (1.6-2.3); Phosphorous 6.4 mg/dl (2.5-4.5)
[2024-10-21 13:48] LABS: T4 (Thyroxine) 15.3 ug/dl (5.53-11.0)
[2024-10-21 14:02] LABS: Thyroid Stimulating Hormone 1.46 uIU/mL (0.465-4.68)
[2024-10-21 14:12] LABS: HIV Combo NEGATIVE (Negative)
[2024-10-21 14:44] LABS: Hepatitis C Ab Qual. W/ RFX NEGATIVE (Negative)
--- NOTE | 2024-10-21 16:24 | PC.NURSE ---
ATTEMPTED TO CALL REPORT, NURSE NOT AVAILABLE
--- NOTE | 2024-10-21 16:26 | HMH.PHAINT1 ---
Pharmacy Intervention Comments: MEDICATION RECONCILIATION COMPLETED ON PATIENT USING EXTERNAL FILL HISTORY FROM PHARMACY AND LIST FROM ONCOLOGY CLINIC. -FRANNIE ASENCIO, ROSA MD
--- NOTE | 2024-10-21 16:30 | PC.NURSE ---
REPORT CALLED TO MELINDA TILLEY
[2024-10-21 16:47] LABS: Reflex Lactic Add Lactic Reflex
--- NOTE | 2024-10-21 16:59 | PC.NURSE ---
arrived by w/c from ED
[2024-10-21 17:43] LABS: Lactic Acid Follow Up (RFLX 1) 1.1 mmol/L (0.7-2.1)
[2024-10-21] MEDS: LACTATED RINGERS 1000ML 1,000 ML 75 ML IV (19:04)
[2024-10-21] MEDS: MAGNESIUM SULFATE IN WATER 2 GM/50 ML PIGGYBACK IV (19:04)
--- NOTE | 2024-10-21 20:55 | P.HP_ITS ---
History of Present Illness *Admission Date: 10/21/24 *Reason for visit:: Nausea/vomiting/diarrhea *History of present illness: Lashae Wyman is a 73-year-old female with a medical history significant for metastatic rectal adenocarcinoma (s/p diverting ileostomy due to distal obstruction), current tobacco smoker, hypertension, hyperlipidemia who presents with nausea/vomiting/diarrhea over the past 4 days. She states her ostomy has had loose, watery, green, foul-smelling diarrhea over the past 4 days. She has had 1-2 episodes of nausea/vomiting over the past 4 days as well. Denies abdominal pain, respiratory symptoms, fever/chills, urinary symptoms. No changes in diet or medications recently. Workup in the ED significant for 11.8, lactate 2.8, creatinine 3.0 (baseline 1.2), phosphorus 6.4, lipase 477, total T4 15.3. Respiratory panel negative. CT abdomen/pelvis unremarkable for acute findings, though did reveal mildly enlarged appendix that has improved since last CT in August 2024. She was fluid resuscitated with 3 L NS bolus. Case discussed with ED provider and decision was made to admit patient for high output ostomy, nausea/vomiting/diarrhea, and LENA. [facility] Disclaimer: The information contained in this section may have been updated after the patient was seen, as this information can be updated by other users. Medical History History of colon cancer Surgical History History of neck surgery History of colonoscopy Family History Sister Heart attack Mother Diabetes Other Family history of CVA Family history of brain aneurysm Social History Smoking Status: Current every day smoker alcohol intake: never substance use type: denies use current occupational status: unemployed and retired Travel in the last 8 weeks: None marital status: Have you lived/traveled outside [place] in past 30 days?: No Contact w/someone who lives/traveled outside US past 30 days?: No Exposure to someone with infectious disease in past 14 days?: No Do you have a fever (greater than 100.4 F or 38 C)?: No Have you tested positive for COVID-19: No Exposed to someone with COVID-19 in past 14 days?: No Do you have a sore throat?: No Do you have a cough?: No Do you have any weakness?: Yes Do you have any diarrhea?: Yes Are you experiencing any unusual bleeding?: No Do you have any muscle aches/pain?: No Do you have any abdominal pain?: No Are you experiencing loss of taste or smell?: No Other Medical History Have you received the Flu Vaccine for this season: No Have you received the Pneumonia Vaccine: No Meds Home Medications and Allergies Home Medications ?Medication ?Instructions ?Recorded ?Confirmed ?Type aspirin 81 mg chewable tablet 81 mg PO DAILY 08/15/24 10/21/24 History rosuvastatin 20 mg tablet 20 mg PO HS 08/16/24 10/21/24 History lisinopril 10 mg tablet 20 mg PO DAILY 10/21/24 10/21/24 History ondansetron 8 mg disintegrating 8 mg PO DAILY 10/21/24 10/21/24 History tablet prochlorperazine maleate 10 mg 10 mg PO Q6HP PRN nausea and 10/21/24 10/21/24 History tablet (Compazine) vomiting New Prescriptions to Start Prescriptions: Allergies Allergy/AdvReac Type Severity Reaction Status Date / Time No Known Allergies Allergy Verified 09/17/24 10:44 Exam Data for Last 24 hours Vital signs and Labs for Last 24 Hours: Temp Pulse Resp BP Pulse Ox O2 Del Method 97.6 F 77 14 133/73 97 Room Air 10/21/24 16:30 10/21/24 16:45 10/21/24 16:45 10/21/24 16:30 10/21/24 16:45 10/21/24 16:30 Laboratory Results - last 24 hr 10/21/24 12:36: WBC 11.8 H, RBC 5.42 H, Hgb 16.6 H, Hct 46.5, MCV 85.8, MCH 30.6, MCHC 35.7 H, RDW 13.8, Plt Count 224, MPV 9.8, Neut % (Auto) 65.7, Lymph % (Auto) 21.2, [place] % (Auto) 12.2 H, Eos % (Auto) 0.3, Baso % (Auto) 0.3, Neut # (Auto) 7.7, Lymph # (Auto) 2.5, [place] # (Auto) 1.4 H, Eos # (Auto) 0.0, Baso # (Auto) 0.0, VBG pH 7.37, VBG pCO2 34.1 L, VBG pO2 39.2, VBG HCO3 19.4 L, VBG Total CO2 20.5 L, VBG O2 Saturation 72.9 H, VBG Base Excess -5.8 L, VBG Lactic Acid 2.8 H, Sodium 131 L, Potassium 3.8, Chloride 94 L, Carbon Dioxide 21 L, Anion Gap 19.8 H, BUN 61 H, Creatinine 3.00 H, Estimated Creat Clear 18, Estimated GFR 15 L*, Est GFR ( Amer) 18 L*, Glucose 120 H, Calcium 9.9, Phosphorus 6.4 H, Magnesium 1.9, Total Bilirubin 0.6, AST 38 H, ALT 34, Alkaline Phosphatase 96, Total Protein 7.6, Albumin 4.7, Globulin 2.9, Albumin/Globulin Ratio 1.6, Lipase 477 H, TSH 1.46, Thyroxine (T4) 15.3 H, HCV Ab MADELINE w/Rflx PCR Qn Negative, HIV Ag/Ab Combo Qual Negative 10/21/24 12:38: SARS-CoV-2 (PCR) Not detected, Influenza A Untype (PCR) Not detected, Influenza Type B (PCR) Not detected 10/21/24 17:28: Lactate 1.1 I & O for Last 24 hours: Intake & Output 10/18/24 10/19/24 10/20/24 10/21/24 23:59 23:59 23:59 23:59 Weight 68.039 kg Constitutional Constitutional: no acute distress *Routine HEENT Exam Head: Present normocephalic Eye: Present EOMI and PERRL ENT: Present mucous membranes moist *Routine Neck Exam Neck: Present supple; Absent lymphadenopathy *Routine Respiratory Exam Respiratory: Present CTA bilaterally *Routine Cardiovascular Exam Cardiovascular: Present RRR *Routine Abdominal Exam Abdominal: Present soft and normoactive bowel sounds; Absent tenderness Comments: Ileostomy site viable with no signs of infection. Green, foul-smelling, watery stool output in the ostomy bag. 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: Status: Acute Category: Medical Code(s): C20 - Malignant neoplasm of rectum; C77.5 - Secondary and unspecified malignant neoplasm of intrapelvic lymph nodes (3) Nausea vomiting and diarrhea: Status: Acute Category: Medical Code(s): R11.2 - Nausea with vomiting, unspecified; R19.7 - Diarrhea, unspecified (4) Hyperphosphatemia: Status: Acute Category: Medical Code(s): E83.39 - Other disorders of phosphorus metabolism (5) Hypertension: Status: Acute Category: Medical Code(s): I10 - Essential (primary) hypertension (6) Hyperlipidemia: Status: Acute Category: Medical Code(s): E78.5 - Hyperlipidemia, unspecified Plan Lashae Wyman is a 73-year-old female with a medical history significant for metastatic rectal adenocarcinoma (s/p diverting ileostomy due to distal obstruction), current tobacco smoker, hypertension, hyperlipidemia who presents with nausea/vomiting/diarrhea over the past 4 days. She states her ostomy has had loose, watery, green, foul-smelling diarrhea over the past 4 days. She has had 1-2 episodes of nausea/vomiting over the past 4 days as well. Denies abdominal pain, respiratory symptoms, fever/chills, urinary symptoms. No changes in diet or medications recently. Workup in the ED significant for 11.8, lactate 2.8, creatinine 3.0 (baseline 1.2), phosphorus 6.4, lipase 477, total T4 15.3. Respiratory panel negative. CT abdomen/pelvis unremarkable for acute findings, though did reveal mildly enlarged appendix that has improved since last CT in August 2024. She was fluid resuscitated with 3 L NS bolus. Case discussed with ED provider and decision was made to admit patient for high output ostomy, nausea/vomiting/diarrhea, and LENA. #Nausea/vomiting/diarrhea #High output ileostomy #LENA on CKD 3A ? Four days of nausea/vomiting/diarrhea, with loose, green, foul-smelling diarrhea. No recent dietary or medication changes. ? Follow-up stool PCR, suspect gastroenteritis. Possibly also related to chemotherapy. ? Initial creatinine 3.0, baseline around 1.2. Given 3 L in the ED. ? WBC 11.8, however likely from volume contraction and reactive at this time. Continue to monitor. ? Continue oral feeds and rehydration, currently tolerating. ? IV LR at 75 mL/h. ? Avoiding loperamide in case this is infectious. May benefit from bulking agents such as psyllium husk once infection ruled. ? Low fiber diet at this time. ? Consider GI consult if high output ostomy does not improve. #Hyperphosphatemia ? Initial phosphorus 6.4. May be secondary to tumor lysis syndrome. Calcium normal. ? Follow-up morning phosphorus after fluid resuscitation. Consider phosphate binders if continues to be elevated. ? Follow-up morning PTH. #Elevated lipase ? Lipase 477 on admission. However, no epigastric tenderness or CT evidence of pancreatitis. #Elevated total T4 ? Total T4 15.3, however TSH normal. At this time, likely subclinical hyperthyroidism. However, with diarrhea cannot rule out overt hyperthyroidism. Follow-up free T4. ? Follow-up free T4. Chronic medical conditions: #Metastatic rectal adenocarcinoma #S/p diverting ileostomy due to distal obstruction at 09/02/24 ? Follows with Dr. Yip. Receiving chemotherapy, next therapy scheduled for 10/22/2024. #Hypertension ? Hold home lisinopril due to LENA. #Hyperlipidemia ? Continue home rosuvastatin. #Current tobacco smoker ? Provided counseling, but declines nicotine patch. DNR/DNI DVT prophylaxis: Lovenox 30 mg
[2024-10-22 04:00] VITALS: BP 140/73; PULSE 75; RESP 16; TEMP 36.3; O2SAT 98; BMI 21.9
[2024-10-22 05:26] LABS: Alanine Aminotransferase 27 U/L (12-78); Albumin Level 3.6 g/dl (3.5-5.0); Albumin/Globulin Ratio 1.6 (1.1-1.8); Alkaline Phosphatase 76 U/L (38-126); Anion Gap 12.3 mEq/L (5-15); Aspartate Amino Transferase 33 U/L (14-36); Bilirubin,Total 0.4 mg/dl (0.2-1.3); Blood Urea Nitrogen 61 mg/dl (7-17); Calcium 8.9 mg/dl (8.4-10.2); Carbon Dioxide 24 mmol/L (22.0-30.0); Chloride 95 mmol/L (98-107); Creatinine Clearance Estimated 17 mL/min (50-200); Estimated Glomerular Filt Rate 14 ml/min (>60); GFR (African American) 17 ML/MIN (>60); Globulin 2.3 g/dL (1.3-3.2); Glucose 105 mg/dl (74-100); Magnesium 2.7 mg/dl (1.6-2.3); Potassium 3.3 mmoL/L (3.5-5.1); Sodium 128 mmol/L (136-145); Total Protein,Serum 5.9 g/dl (6.3-8.2)
[2024-10-22 05:34] LABS: Basophils % 0.4 % (0.1-2.0); Eosinophils # 0.2 K/mm3 (0.0-0.4); Eosinophils % 2.1 % (0.1-12.0); Hematocrit 37.8 % (37.0-47.0); Lymphocytes # 3.7 K/mm3 (0.7-4.5); Lymphocytes % 37.9 % (10-50); Mean Corpuscular HGB Conc 36.2 g/dL (31.8-35.4); Mean Corpuscular Hemoglobin 30.6 pg (27.0-31.2); Mean Corpuscular Volume 84.4 fl (81-99); Mean Platelet Volume 9.6 fl (7.4-10.4); Monocytes # 1.3 K/mm3 (0.1-1.0); Monocytes % 12.9 % (1.7-9.3); Neutrophils # 4.6 K/mm3 (1.8-7.8); Neutrophils % 46.5 % (37.0-80.0); Platelet Count 276 K/mm3 (142-424); Red Blood Count 4.48 M/mm3 (4.20-5.40); Red Cell Distribution Width 13.5 % (11.5-17.5); White Blood Count 9.8 K/mm3 (4.8-10.8)
[2024-10-22 05:38] LABS: Intact Parathyroid Hormone 108.7 pg/mL (7.5-53.5)
[2024-10-22 05:40] LABS: Hemoglobin 13.8 g/dL (12.2-16.2)
[2024-10-22 06:43] LABS: Adenovirus F 40/41, stool Not Detected (NotDetected); Astrovirus Not Detected (NotDetected); Campylobacter Not Detected (NotDetected); Clostridium Difficile A/B, PCR Not Detected (NotDetected); Cryptosporidium Not Detected (NotDetected); Cyclospora Cayetanesis Not Detected (NotDetected); Entamoeba histolytica Not Detected (NotDetected); Enteroaggregative E coli Not Detected (NotDetected); Enteropathogenic E coli Not Detected (NotDetected); Enterotoxigenic E coli Not Detected (NotDetected); Giardia lamblia Not Detected (NotDetected); Norovirus Not Detected (NotDetected); Plesimonas Shigalloides, PCR Not Detected (NotDetected); Rotavirus A Not Detected (NotDetected); Salmonella, PCR Not Detected (NotDetected); Sapovirus Not Detected (NotDetected); Shiga-like toxin E coli Not Detected (NotDetected); Shigella Enterovasive E coli Not Detected (NotDetected); Vibrio Cholerae Not Detected (NotDetected); Vibrio, PCR Not Detected (NotDetected); Yersinia Entercolitica, PCR Not Detected (NotDetected)
[2024-10-22 06:47] LABS: Microscopic, Urine URINE MICROSCOPIC (MICROSCOPIC)
[2024-10-22 08:00] VITALS: BP 115/77; PULSE 74; RESP 17; TEMP 36.4; O2SAT 100
[2024-10-22 08:25] LABS: Appearance,Urine Cloudy (Clear); Bilirubin,Urine 1+ (Negative); Blood, Urine TRACE-I (Negative); Color,Urine Dark Yellow (Yellow); Glucose,Urine (UA) Negative (Negative); Ketones,Urine Negative (Negative); Leukocyte Esterase,Urine TRACE (Negative); Nitrate,Urine Negative (Negative); PH,Urine 5.5 (5.0-8.5); Protein,Urine TRACE (Negative); Specific Gravity, Urine >= 1.030 (1.005-1.030); Urobilinogen,Urine 0.2 EU/dl (0.2)
[2024-10-22 09:08] LABS: RBC,Urine Occasional #/hpf (0-3)
[2024-10-22 09:09] LABS: Bacteria,Urine 2+ /lpf
[2024-10-22] MEDS: ENOXAPARIN 30MG/0.3ML SYRINGE 30 MG SUBCUT (09:31)
[2024-10-22] MEDS: LACTATED RINGERS 1000ML 1,000 ML 75 ML IV ×2 (09:31→20:33)
[2024-10-22] MEDS: ASPIRIN 81MG CHEWABLE TABLET 81 MG PO (09:31)
[2024-10-22 11:04] LABS: Phosphorous 5.6 mg/dl (2.5-4.5)
[2024-10-22] MEDS: POTASSIUM CHLORIDE 20MEQ TAB 40 MEQ PO ×2 (11:49→15:23)
[2024-10-22 11:51] VITALS: BP 134/92; PULSE 79; RESP 16; TEMP 36.4; O2SAT 99
[2024-10-22 13:44] VITALS: BMI 21.9
--- NOTE | 2024-10-22 14:47 | EXP.ACUTE.PN ---
Subjective *Date: 10/22/24 *Time: 14:47 Interval history: Patient states she is feeling better. Still having burping but no haydee emesis. Having increased watery output from her stoma. No blood. Significant gas production. Having to burp her ostomy bag regularly. Afebrile. Feeling much better per her report. Medical Exam Vital signs and Labs for Last 24 Hours: Vital Signs Temp Pulse Pulse Resp BP BP Pulse Ox 10/22/24 11:51 97.5 F L 79 16 134/92 H 99 10/22/24 08:00 97.5 F L 74 17 115/77 100 10/22/24 06:55 10/22/24 05:00 10/22/24 04:00 97.4 F L 75 16 140/73 98 10/22/24 02:33 10/22/24 01:00 10/21/24 22:57 10/21/24 21:00 10/21/24 20:00 10/21/24 20:00 97.7 F 67 16 141/78 H 97 10/21/24 16:45 77 14 97 10/21/24 16:30 76 18 133/73 98 10/21/24 16:30 97.6 F 75 18 133/73 10/21/24 16:15 81 33 H 94 L 10/21/24 16:00 126/61 10/21/24 15:45 73 30 H 96 10/21/24 15:31 73 19 107/89 L 89 L 10/21/24 15:30 73 18 99 10/21/24 15:15 92 H 25 H 85 L 10/21/24 15:01 91 H 22 109/80 L 99 10/21/24 15:00 102 H 22 99 O2 Del Method 10/22/24 11:51 Room Air 10/22/24 08:00 Room Air 10/22/24 06:55 Room Air 10/22/24 05:00 Room Air 10/22/24 04:00 Room Air 10/22/24 02:33 Room Air 10/22/24 01:00 Room Air 10/21/24 22:57 Room Air 10/21/24 21:00 Room Air 10/21/24 20:00 Room Air 10/21/24 20:00 Room Air 10/21/24 16:45 10/21/24 16:30 10/21/24 16:30 Room Air 10/21/24 16:15 10/21/24 16:00 10/21/24 15:45 10/21/24 15:31 10/21/24 15:30 10/21/24 15:15 10/21/24 15:01 10/21/24 15:00 Intake and Output 10/21/24 10/22/24 10/22/24 23:59 07:59 15:59 Intake Total 385 / 385 Output Total 100 / 100 0 / 100 Balance -100 / 285 385 / 285 Intake: Intake, Oral Amount 385 / 385 Output: Output, Urine Amount 100 / 100 0 / 100 Other: Number of Unmeasured Voids 1 1 Number of Bowel Movements 1 Weight 63.503 kg 63.5 kg Patient Weight 10/22/24 23:59 Weight 63.5 kg Laboratory Results - last 24 hr 10/21/24 17:28: Lactate 1.1 10/22/24 04:37: WBC 9.8, RBC 4.48, Hgb 13.8 D, Hct 37.8, MCV 84.4, MCH 30.6, MCHC 36.2 H, RDW 13.5, Plt Count 276, MPV 9.6, Neut % (Auto) 46.5, Lymph % (Auto) 37.9, [place] % (Auto) 12.9 H, Eos % (Auto) 2.1, Baso % (Auto) 0.4, Neut # (Auto) 4.6, Lymph # (Auto) 3.7, [place] # (Auto) 1.3 H, Eos # (Auto) 0.2, Baso # (Auto) 0.0, Sodium 128 L, Potassium 3.3 L, Chloride 95 L, Carbon Dioxide 24, Anion Gap 12.3, BUN 61 H, Creatinine 3.20 H, Estimated Creat Clear 17, Estimated GFR 14 L*, Est GFR ( Amer) 17 L*, Glucose 105 H, Calcium 8.9, Phosphorus 5.6 H, Magnesium 2.7 H D, Total Bilirubin 0.4, AST 33, ALT 27, Alkaline Phosphatase 76, Total Protein 5.9 L, Albumin 3.6 D, Globulin 2.3, Albumin/Globulin Ratio 1.6, Free T4 1.30, PTH Intact 108.7 H 10/22/24 06:15: Urine Color Dark yellow, Urine Appearance Cloudy, Urine pH 5.5, Ur Specific [place] >= 1.030, Urine Protein Trace, Urine Glucose (UA) Negative, Urine Ketones Negative, Urine Blood Trace-i, Urine Nitrate Negative, Urine Bilirubin 1+ A, Urine Urobilinogen 0.2, Ur Leukocyte Esterase Trace, Urine RBC Occasional, Urine WBC 10-20, Ur Squamous Epith Cells 5-10, Urine Bacteria 2+, Stl Aeromonas (PCR) Not detected, Stl C. cayetanensis PCR Not detected, Stool Rotavirus (PCR) Not detected, Stl Adenov F 40/41 PCR Not detected, Stool Astrovirus (PCR) Not detected, Stool Campylobacter PCR Not detected, Stl C.difficile Tox PCR Not detected, Stool Cryptosporidium PCR Not detected, Stl E.coli Shiga Tox PCR Not detected, Stool E coli O157 PCR Not detected, Stl Enterotoxigenic E PCR Not detected, Stool EPEC (PCR) Not detected, Stool EAEC (PCR) Not detected, Stl E. histolytica PCR Not detected, Stool Giardia Lamblia PCR Not detected, Stool Salmonella PCR Not detected, Stool Sapovirus (PCR) Not detected, Stl P. shigelloides PCR Not detected, Stl Shigella/EIEC PCR Not detected, St Y.enterocolitica PCR Not detected, Stool Vibrio (PCR) Not detected, Stl Vibrio cholerae PCR Not detected, Stl Norovirus GI/GII PCR Not detected I & O for Labs for Last 24 Hours: Intake & Output 10/19/24 10/20/24 10/21/24 10/22/24 23:59 23:59 23:59 23:59 Intake Total 385 / 385 Output Total 100 / 100 Balance 285 / 285 Weight 68.039 kg 63.5 kg Constitutional: Present no acute distress, average body habitus, chronically ill appearing and cooperative Head: Present atraumatic and normocephalic ENT: Present normal exam Respiratory: Present normal respiratory effort; Absent rhonchi, stridor or wheezes Cardiac: Present Reg Rate and Rhythm GI: Present soft and normal bowel sounds; Absent distention, tenderness, guarding or rebound Comments:: Ostomy with liquid stool and gas output. 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: Status: Acute Category: Medical Code(s): C20 - Malignant neoplasm of rectum; C77.5 - Secondary and unspecified malignant neoplasm of intrapelvic lymph nodes (3) Nausea vomiting and diarrhea: Status: Acute Category: Medical Code(s): R11.2 - Nausea with vomiting, unspecified; R19.7 - Diarrhea, unspecified (4) Hyperphosphatemia: Status: Acute Category: Medical Code(s): E83.39 - Other disorders of phosphorus metabolism (5) Hypertension: Status: Acute Category: Medical Code(s): I10 - Essential (primary) hypertension (6) Hyperlipidemia: Status: Acute Category: Medical Code(s): E78.5 - Hyperlipidemia, unspecified (7) Severe protein-calorie malnutrition: Status: Acute Category: Medical Code(s): E43 - Unspecified severe protein-calorie malnutrition Plan Lashae Wyman is a 73-year-old female with a medical history significant for metastatic rectal adenocarcinoma (s/p diverting ileostomy due to distal obstruction), current tobacco smoker, hypertension, hyperlipidemia who presents with nausea/vomiting/diarrhea over the past 4 days. She states her ostomy has had loose, watery, green, foul-smelling diarrhea over the past 4 days. She has had 1-2 episodes of nausea/vomiting over the past 4 days as well. Denies abdominal pain, respiratory symptoms, fever/chills, urinary symptoms. No changes in diet or medications recently. Workup in the ED significant for 11.8, lactate 2.8, creatinine 3.0 (baseline 1.2), phosphorus 6.4, lipase 477, total T4 15.3. Respiratory panel negative. CT abdomen/pelvis unremarkable for acute findings, though did reveal mildly enlarged appendix that has improved since last CT in August 2024. She was fluid resuscitated with 3 L NS bolus. Case discussed with ED provider and decision was made to admit patient for high output ostomy, nausea/vomiting/diarrhea, and LENA. Patient feeling better today but still has significant kidney function abnormality. Still having loose stools. Continue to monitor inpatient. Repeat labs ordered for the morning. Problems addressed as follows: #Nausea/vomiting/diarrhea #High output ileostomy #LENA on CKD 3A ? Four days of nausea/vomiting/diarrhea, with loose, green, foul-smelling diarrhea. No recent dietary or medication changes. ? Stool PCR negative. Continue to suspect gastroenteritis. May also be related to her chemotherapy. -Initial creatinine 3.0, baseline 1.2. Elevated to 3.2 today with BUN 61. Repeat BMP ordered for this evening to monitor kidney function, repeat CBC, CMP, magnesium ordered for the morning. -White count 9.8, hemoglobin 13.8. -Continue LR at 75 mL/h today. ? Initiate FiberCon twice daily for bulking agent. #Hyperphosphatemia ? Initial phosphorus 6.4. May be secondary to tumor lysis syndrome. Repeat 5.6. PTH 108.7. Will monitor closely as we advance diet. Repeat phosphorus level ordered for the morning. - Consider phosphate binders if continues to be elevated. #Elevated lipase: Lipase 477 on admission. However, no epigastric tenderness or CT evidence of pancreatitis. #Elevated total T4 ? Total T4 15.3, however TSH normal. At this time, likely subclinical hyperthyroidism. However, with diarrhea cannot rule out overt hyperthyroidism. Free T4 1.3 Chronic medical conditions: #Metastatic rectal adenocarcinoma S/p diverting ileostomy due to distal obstruction at 09/02/24: Follows with Dr. Yip. Receiving chemotherapy, next therapy scheduled for 10/22/2024. #Hypertension: Hold home lisinopril due to LENA. #Hyperlipidemia: Continue home rosuvastatin. #Current tobacco smoker: Provided counseling, but declines nicotine patch. Nutrition assisting with patient's severe protein calorie malnutrition. Supplementation per their recommendations. DNR/DNI DVT prophylaxis: Lovenox 30 mg Regular diet, lactose-free
[2024-10-22 15:48] VITALS: BP 147/84; PULSE 73; RESP 17; TEMP 36.6; O2SAT 99
[2024-10-22 17:43] LABS: Anion Gap 12.5 mEq/L (5-15); Blood Urea Nitrogen 58 mg/dl (7-17); Calcium 9.3 mg/dl (8.4-10.2); Carbon Dioxide 26 mmol/L (22.0-30.0); Chloride 94 mmol/L (98-107); Creatinine Clearance Estimated 19 mL/min (50-200); Estimated Glomerular Filt Rate 18 ml/min (>60); GFR (African American) 22 ML/MIN (>60); Glucose 98 mg/dl (74-100); Potassium 3.5 mmoL/L (3.5-5.1); Sodium 129 mmol/L (136-145)
--- NOTE | 2024-10-22 18:02 | PC.NURSE ---
Patient feels better than yesterday but contiues to have watery output from her ostomy.
[2024-10-22 20:00] VITALS: BP 136/86; PULSE 83; RESP 16; TEMP 36.5; O2SAT 96
[2024-10-22] MEDS: CALCIUM POLYCARBOPHIL 625MG TAB 1250 MG PO (20:34)
[2024-10-23 04:00] VITALS: BP 105/76; PULSE 84; RESP 16; TEMP 36.3; O2SAT 100; BMI 21.9
--- NOTE | 2024-10-23 05:51 | PC.NURSE ---
Patient has had a good night. Has had no complaints and has rested well. No events overnight
[2024-10-23 06:53] LABS: Basophils % 0.4 % (0.1-2.0); Eosinophils # 0.3 K/mm3 (0.0-0.4); Eosinophils % 3.1 % (0.1-12.0); Hematocrit 39.5 % (37.0-47.0); Lymphocytes # 3.4 K/mm3 (0.7-4.5); Lymphocytes % 37.4 % (10-50); Mean Corpuscular HGB Conc 35.4 g/dL (31.8-35.4); Mean Corpuscular Hemoglobin 30.2 pg (27.0-31.2); Mean Corpuscular Volume 85.1 fl (81-99); Mean Platelet Volume 9.8 fl (7.4-10.4); Monocytes # 1.3 K/mm3 (0.1-1.0); Monocytes % 14.4 % (1.7-9.3); Neutrophils % 44.5 % (37.0-80.0); Platelet Count 265 K/mm3 (142-424); Red Blood Count 4.64 M/mm3 (4.20-5.40); Red Cell Distribution Width 13.6 % (11.5-17.5)
[2024-10-23 07:02] LABS: Alanine Aminotransferase 28 U/L (12-78); Albumin Level 3.6 g/dl (3.5-5.0); Albumin/Globulin Ratio 1.5 (1.1-1.8); Alkaline Phosphatase 83 U/L (38-126); Anion Gap 12.1 mEq/L (5-15); Aspartate Amino Transferase 33 U/L (14-36); Bilirubin,Total 0.5 mg/dl (0.2-1.3); Blood Urea Nitrogen 51 mg/dl (7-17); Calcium 9.1 mg/dl (8.4-10.2); Carbon Dioxide 27 mmol/L (22.0-30.0); Chloride 93 mmol/L (98-107); Creatinine Clearance Estimated 24 mL/min (50-200); Estimated Glomerular Filt Rate 23 ml/min (>60); GFR (African American) 28 ML/MIN (>60); Globulin 2.4 g/dL (1.3-3.2); Glucose 86 mg/dl (74-100); Magnesium 2.4 mg/dl (1.6-2.3); Potassium 3.1 mmoL/L (3.5-5.1); Sodium 129 mmol/L (136-145)
[2024-10-23 07:22] LABS: Phosphorous 4.1 mg/dl (2.5-4.5)
[2024-10-23 08:00] VITALS: BP 117/73; PULSE 71; RESP 16; TEMP 36.6; O2SAT 98
[2024-10-23] MEDS: ASPIRIN 81MG CHEWABLE TABLET 81 MG PO (08:33)
[2024-10-23] MEDS: CALCIUM POLYCARBOPHIL 625MG TAB 1250 MG PO ×2 (08:33→21:27)
[2024-10-23] MEDS: ENOXAPARIN 30MG/0.3ML SYRINGE 30 MG SUBCUT (08:33)
[2024-10-23] MEDS: POTASSIUM CHLORIDE 20MEQ TAB 40 MEQ PO ×3 (10:31→17:33)
[2024-10-23] MEDS: LACTATED RINGERS 1000ML 1,000 ML 75 ML IV (12:19)
[2024-10-23 16:00] VITALS: BP 128/73; PULSE 80; RESP 18; TEMP 36.7; O2SAT 98
--- NOTE | 2024-10-23 17:48 | PC.NURSE ---
PT IS RESTING IN BED. ALERT AND ORIENTED X4. EATING AND DRINKING FAIR. LUNG SOUNDS CLEAR. ABDOMEN SOFT/NON TENDER WITH ACTIVE BOWEL SOUNDS. OSTOMY NOTED TO RIGHT SIDE OF ABDOMEN CONNECTED TO HICKS BAG. PT IS STILL HAVING A LOT OF WATERY STOOLS. AMBULATES TO THE BATHROOM. WILL CONTINUE TO MONITOR.
--- NOTE | 2024-10-23 19:31 | P.PN_ITS ---
Subjective *Date: 10/23/24 *Time: 22:13 Interval history: Patient feels a little burpee but no longer having nausea or vomiting. Having liquid output from ostomy. Tolerating clear liquids. Comfortable advancing diet today. Afebrile. Medical Exam Vital signs and Labs for Last 24 Hours: Vital Signs Temp Pulse Resp BP Pulse Ox O2 Del Method O2 Flow Rate 10/23/24 18:47 Room Air 10/23/24 17:00 Room Air 10/23/24 16:00 98.1 F 80 18 128/73 98 Room Air 10/23/24 15:00 Room Air 10/23/24 12:29 Room Air 10/23/24 11:00 Room Air 10/23/24 08:00 Room Air 10/23/24 08:00 97.8 F 71 16 117/73 98 Room Air 10/23/24 07:58 Room Air 10/23/24 06:57 Room Air 10/23/24 05:00 Nasal Cannula 1 10/23/24 04:00 97.3 F L 84 16 105/76 L 100 Room Air 10/23/24 03:00 Room Air 10/23/24 01:00 Room Air 10/22/24 23:00 Room Air 10/22/24 21:00 Room Air 10/22/24 20:00 Room Air 10/22/24 20:00 97.7 F 83 16 136/86 96 Room Air Intake and Output 10/23/24 10/23/24 10/23/24 07:59 15:59 23:59 Intake Total 150 / 3162 540 / 3162 2472 / 3162 Output Total 600 / 600 0 / 600 0 / 600 Balance -450 / 2562 540 / 2562 2472 / 2562 Intake: Intake, Oral Amount 150 / 960 540 / 960 270 / 960 Intake, Total IV Amount 2202 / 2202 Lactated Ringers 1000ML 1,000 2202 / 2202 ml @ 75 mls/hr IV .[id number] [facility] Rx#:[id number] Output: Output, Urine Amount 0 / 0 0 / 0 0 / 0 Output, Stool Amount 600 / 600 Other: Number of Unmeasured Voids 1 1 1 Number of Bowel Movements 1 1 Weight 63.5 kg Patient Weight 10/23/24 23:59 Weight 63.5 kg Laboratory Results - last 24 hr 10/23/24 05:58: WBC 9.0, RBC 4.64, Hgb 14.0, Hct 39.5, MCV 85.1, MCH 30.2, MCHC 35.4, RDW 13.6, Plt Count 265, MPV 9.8, Neut % (Auto) 44.5, Lymph % (Auto) 37.4, Wolfe % (Auto) 14.4 H, Eos % (Auto) 3.1, Baso % (Auto) 0.4, Neut # (Auto) 4.0, Lymph # (Auto) 3.4, Wolfe # (Auto) 1.3 H, Eos # (Auto) 0.3, Baso # (Auto) 0.0, Sodium 129 L, Potassium 3.1 L, Chloride 93 L, Carbon Dioxide 27, Anion Gap 12.1, BUN 51 H, Creatinine 2.10 H, Estimated Creat Clear 24, Estimated GFR 23 L, Est GFR ( Amer) 28 L D, Glucose 86, Calcium 9.1, Phosphorus 4.1 D, Magnesium 2.4 H D, Total Bilirubin 0.5, AST 33, ALT 28, Alkaline Phosphatase 83, Total Protein 6.0 L, Albumin 3.6, Globulin 2.4, Albumin/Globulin Ratio 1.5 I & O for Labs for Last 24 Hours: Intake & Output 10/20/24 10/21/24 10/22/24 10/23/24 23:59 23:59 23:59 23:59 Intake Total 625 / 775 3162 / 3162 Output Total 100 / 100 600 / 600 Balance 525 / 675 2562 / 2562 Weight 68.039 kg 63.5 kg 63.5 kg Constitutional: Present no acute distress, average body habitus, chronically ill appearing and cooperative Head: Present atraumatic and normocephalic ENT: Present normal exam Respiratory: Present normal respiratory effort; Absent rhonchi, stridor or wheezes Cardiac: Present Reg Rate and Rhythm GI: Present soft and normal bowel sounds; Absent distention, tenderness, guarding or rebound Comments:: Ostomy with liquid stool and gas output. 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: Status: Acute Category: Medical Code(s): C20 - Malignant neoplasm of rectum; C77.5 - Secondary and unspecified malignant neoplasm of intrapelvic lymph nodes (3) Nausea vomiting and diarrhea: Status: Acute Category: Medical Code(s): R11.2 - Nausea with vomiting, unspecified; R19.7 - Diarrhea, unspecified (4) Hyperphosphatemia: Status: Acute Category: Medical Code(s): E83.39 - Other disorders of phosphorus metabolism (5) Hypertension: Status: Acute Category: Medical Code(s): I10 - Essential (primary) hypertension (6) Hyperlipidemia: Status: Acute Category: Medical Code(s): E78.5 - Hyperlipidemia, unspecified (7) Severe protein-calorie malnutrition: Status: Acute Category: Medical Code(s): E43 - Unspecified severe protein-calorie malnutrition Plan Lashae Wyman is a 73-year-old female with a medical history significant for metastatic rectal adenocarcinoma (s/p diverting ileostomy due to distal obstruction), current tobacco smoker, hypertension, hyperlipidemia who presents with nausea/vomiting/diarrhea over the past 4 days. She states her ostomy has had loose, watery, green, foul-smelling diarrhea over the past 4 days. She has had 1-2 episodes of nausea/vomiting over the past 4 days as well. Denies abdominal pain, respiratory symptoms, fever/chills, urinary symptoms. No changes in diet or medications recently. Workup in the ED significant for 11.8, lactate 2.8, creatinine 3.0 (baseline 1.2), phosphorus 6.4, lipase 477, total T4 15.3. Respiratory panel negative. CT abdomen/pelvis unremarkable for acute findings, though did reveal mildly enlarged appendix that has improved since last CT in August 2024. She was fluid resuscitated with 3 L NS bolus. Case discussed with ED provider and decision was made to admit patient for high output ostomy, nausea/vomiting/diarrhea, and LENA. Patient feeling better today, slow improvement in kidney function. Will advance diet. Liquid stool output from ostomy. Will monitor for 24 hours. If does well with advancement, anticipate discharge tomorrow. Problems addressed as follows: #Nausea/vomiting/diarrhea #High output ileostomy #LENA on CKD 3A ? Four days of nausea/vomiting/diarrhea, with loose, green, foul-smelling diarrhea. No recent dietary or medication changes. ? Stool PCR negative. Continue to suspect gastroenteritis. May also be related to her chemotherapy. - Initial creatinine 3.0, baseline 1.2. Improved to BUN of 51, creatinine 2.1 today. Repeat CBC, CMP, magnesium ordered for the morning. -White count remains normal at 9, hemoglobin 14. Platelets 265. -Discontinue IV fluids; continue FiberCon twice daily #Hyperphosphatemia ? Initial phosphorus 6.4. Improved today to 4.1. Normalizing. - PTH 108.7. No indication for phosphate binder at this time. #Elevated lipase: Lipase 477 on admission. However, no epigastric tenderness or CT evidence of pancreatitis. #Elevated total T4 ? Total T4 15.3, however TSH normal. At this time, likely subclinical hyperthyroidism. However, with diarrhea cannot rule out overt hyperthyroidism. Free T4 1.3 Chronic medical conditions: #Metastatic rectal adenocarcinoma S/p diverting ileostomy due to distal obstruction at 09/02/24: Follows with Dr. Yip. Receiving chemotherapy, next therapy scheduled for 10/22/2024. #Hypertension: Hold home lisinopril due to LENA. #Hyperlipidemia: Continue home rosuvastatin. #Current tobacco smoker: Provided counseling, but declines nicotine patch. Nutrition assisting with patient's severe protein calorie malnutrition. Supplementation per their recommendations. DNR/DNI DVT prophylaxis: Lovenox 30 mg Regular diet, lactose-free
[2024-10-23 20:00] VITALS: BP 131/72; PULSE 78; RESP 17; TEMP 36.5; O2SAT 97
[2024-10-24] MEDS: LACTATED RINGERS 1000ML 1,000 ML 75 ML IV (00:20)
[2024-10-24 04:00] VITALS: BP 114/65; PULSE 76; RESP 17; TEMP 36.3; O2SAT 98
[2024-10-24 06:28] LABS: Basophils # 0.1 K/mm3 (0-0.2); Basophils % 0.7 % (0.1-2.0); Eosinophils # 0.2 K/mm3 (0.0-0.4); Eosinophils % 2.5 % (0.1-12.0); Hematocrit 40.3 % (37.0-47.0); Hemoglobin 14.5 g/dL (12.2-16.2); Lymphocytes # 2.9 K/mm3 (0.7-4.5); Lymphocytes % 32.7 % (10-50); Mean Corpuscular Hemoglobin 30.7 pg (27.0-31.2); Mean Corpuscular Volume 85.4 fl (81-99); Mean Platelet Volume 9.6 fl (7.4-10.4); Monocytes # 1.3 K/mm3 (0.1-1.0); Monocytes % 14.2 % (1.7-9.3); Neutrophils # 4.4 K/mm3 (1.8-7.8); Neutrophils % 49.8 % (37.0-80.0); Platelet Count 257 K/mm3 (142-424); Red Blood Count 4.72 M/mm3 (4.20-5.40); Red Cell Distribution Width 13.6 % (11.5-17.5); White Blood Count 8.9 K/mm3 (4.8-10.8)
[2024-10-24 06:42] LABS: Alanine Aminotransferase 25 U/L (12-78); Albumin Level 3.7 g/dl (3.5-5.0); Albumin/Globulin Ratio 1.5 (1.1-1.8); Alkaline Phosphatase 82 U/L (38-126); Anion Gap 11.6 mEq/L (5-15); Aspartate Amino Transferase 27 U/L (14-36); Bilirubin,Total 0.6 mg/dl (0.2-1.3); Blood Urea Nitrogen 45 mg/dl (7-17); Calcium 9.2 mg/dl (8.4-10.2); Carbon Dioxide 28 mmol/L (22.0-30.0); Chloride 94 mmol/L (98-107); Creatinine Clearance Estimated 27 mL/min (50-200); Estimated Glomerular Filt Rate 28 ml/min (>60); GFR (African American) 33 ML/MIN (>60); Globulin 2.4 g/dL (1.3-3.2); Glucose 105 mg/dl (74-100); Magnesium 2.3 mg/dl (1.6-2.3); Potassium 3.6 mmoL/L (3.5-5.1); Sodium 130 mmol/L (136-145); Total Protein,Serum 6.1 g/dl (6.3-8.2)
--- NOTE | 2024-10-24 07:11 | EXP.DC.SUM ---
General Admission date:: 10/21/24 Discharge date: 10/24/24 HPI HPI HPI: Lashae Wyman is a 73-year-old female with a medical history significant for metastatic rectal adenocarcinoma (s/p diverting ileostomy due to distal obstruction), current tobacco smoker, hypertension, hyperlipidemia who presents with nausea/vomiting/diarrhea over the past 4 days. She states her ostomy has had loose, watery, green, foul-smelling diarrhea over the past 4 days. She has had 1-2 episodes of nausea/vomiting over the past 4 days as well. Denies abdominal pain, respiratory symptoms, fever/chills, urinary symptoms. No changes in diet or medications recently. Workup in the ED significant for 11.8, lactate 2.8, creatinine 3.0 (baseline 1.2), phosphorus 6.4, lipase 477, total T4 15.3. Respiratory panel negative. CT abdomen/pelvis unremarkable for acute findings, though did reveal mildly enlarged appendix that has improved since last CT in August 2024. She was fluid resuscitated with 3 L NS bolus. Case discussed with ED provider and decision was made to admit patient for high output ostomy, nausea/vomiting/diarrhea, and LENA. Hospital Course Hospital Course Hospital Course: Lashae Wyman is a 73-year-old female with a medical history significant for metastatic rectal adenocarcinoma (s/p diverting ileostomy due to distal obstruction), current tobacco smoker, hypertension, hyperlipidemia who presents with nausea/vomiting/diarrhea over the past 4 days. She states her ostomy has had loose, watery, green, foul-smelling diarrhea over the past 4 days. She has had 1-2 episodes of nausea/vomiting over the past 4 days as well. Denies abdominal pain, respiratory symptoms, fever/chills, urinary symptoms. No changes in diet or medications recently. Workup in the ED significant for 11.8, lactate 2.8, creatinine 3.0 (baseline 1.2), phosphorus 6.4, lipase 477, total T4 15.3. Respiratory panel negative. CT abdomen/pelvis unremarkable for acute findings, though did reveal mildly enlarged appendix that has improved since last CT in August 2024. She was fluid resuscitated with 3 L NS bolus. Case discussed with ED provider and decision was made to admit patient for high output ostomy, nausea/vomiting/diarrhea, and LENA. Patient showed gradual improvement with kidney function. Output decreased from ostomy. Tolerating p.o. intake. Stable to discharge home with close follow-up as an outpatient with repeat labs to monitor for improvement in kidney function. Problems addressed as follows: #Nausea/vomiting/diarrhea #High output ileostomy #LENA on CKD 3A ? Four days of nausea/vomiting/diarrhea, with loose, green, foul-smelling diarrhea. No recent dietary or medication changes. Stool PCR negative. Continue to suspect gastroenteritis. May also be related to her chemotherapy. Initial creatinine 3.0, baseline 1.2. Improved to BUN of 45, creatinine 1.8 by day of discharge. Baseline creatinine 1.2. White count normalized. Recommend continuing FiberCon twice daily to help bulk stools. Tolerating p.o. liquids. No further nausea or vomiting. #Hyperphosphatemia ? Initial phosphorus 6.4. Improved today to 4.1. Normalized during admission. PTH 108.7. No indication for phosphate binder at this time. #Elevated lipase: Lipase 477 on admission. However, no epigastric tenderness or CT evidence of pancreatitis. #Elevated total T4: Total T4 15.3, however TSH normal. At this time, likely subclinical hyperthyroidism. However, with diarrhea cannot rule out overt hyperthyroidism. Free T4 1.3 Chronic medical conditions: #Metastatic rectal adenocarcinoma S/p diverting ileostomy due to distal obstruction at 09/02/24: Follows with Dr. Yip. Receiving chemotherapy, next therapy scheduled for 10/22/2024. #Hypertension: Hold home lisinopril due to LENA. #Hyperlipidemia: Continue home rosuvastatin. #Current tobacco smoker: Provided counseling, but declines nicotine patch. Exam Data for Last 24 hours Vital signs and Labs for Last 24 Hours: Temp Pulse Resp BP Pulse Ox O2 Del Method O2 Flow Rate 97.4 F L 76 17 114/65 98 Room Air 1 10/24/24 04:00 10/24/24 04:00 10/24/24 04:00 10/24/24 04:00 10/24/24 04:00 10/24/24 06:55 10/23/24 05:00 Laboratory Results - last 24 hr 10/23/24 05:58: Sodium 129 L, Potassium 3.1 L, Chloride 93 L, Carbon Dioxide 27, Anion Gap 12.1, BUN 51 H, Creatinine 2.10 H, Estimated Creat Clear 24, Estimated GFR 23 L, Est GFR ( Amer) 28 L D, Glucose 86, Calcium 9.1, Phosphorus 4.1 D, Magnesium 2.4 H D, Total Bilirubin 0.5, AST 33, ALT 28, Alkaline Phosphatase 83, Total Protein 6.0 L, Albumin 3.6, Globulin 2.4, Albumin/Globulin Ratio 1.5 10/24/24 06:04: WBC 8.9, RBC 4.72, Hgb 14.5, Hct 40.3, MCV 85.4, MCH 30.7, MCHC 36.0 H, RDW 13.6, Plt Count 257, MPV 9.6, Neut % (Auto) 49.8, Lymph % (Auto) 32.7, Mcculloch % (Auto) 14.2 H, Eos % (Auto) 2.5, Baso % (Auto) 0.7, Neut # (Auto) 4.4, Lymph # (Auto) 2.9, Mcculloch # (Auto) 1.3 H, Eos # (Auto) 0.2, Baso # (Auto) 0.1, Sodium 130 L, Potassium 3.6, Chloride 94 L, Carbon Dioxide 28, Anion Gap 11.6, BUN 45 H, Creatinine 1.80 H, Estimated Creat Clear 27, Estimated GFR 28 L, Est GFR ( Amer) 33 L, Glucose 105 H, Calcium 9.2, Magnesium 2.3, Total Bilirubin 0.6, AST 27, ALT 25, Alkaline Phosphatase 82, Total Protein 6.1 L, Albumin 3.7, Globulin 2.4, Albumin/Globulin Ratio 1.5 I & O for Last 24 hours: Intake & Output 10/21/24 10/22/24 10/23/24 10/24/24 23:59 23:59 23:59 23:59 Intake Total 625 / 775 3162 / 3684 1020 / 1020 Output Total 100 / 100 600 / 600 1350 / 1350 Balance 525 / 675 2562 / 3084 -330 / -330 Weight 68.039 kg 63.5 kg 63.5 kg Constitutional Constitutional: no acute distress, average body habitus, chronically ill appearing and cooperative *Routine HEENT Exam Head: Present normocephalic Eye: Present EOMI and PERRL ENT: Present mucous membranes moist *Routine Neck Exam Neck: Present supple; Absent lymphadenopathy *Routine Respiratory Exam Respiratory: Present CTA bilaterally; Absent rhonchi, wheezes or crackles *Routine Cardiovascular Exam Cardiovascular: Present RRR *Routine Abdominal Exam Abdominal: Present soft and normoactive bowel sounds; Absent tenderness Comments: Good output from ostomy *Routine Rectal Exam Patient deferred: visual exam *Routine Exam Patient deferred: external exam *Routine Extremities Exam Extremities: Absent cyanosis, clubbing or edema *Routine Skin Exam Skin: Present intact and warm; Absent rash *Routine Neurological Exam Neurological: Present alert, oriented X3 and moving all extremities; Absent altered mental status Results Data Completed and Pending Labs on day of discharge: Labs from last 24 hours 10/24/24 10/23/24 06:04 05:58 WBC 8.9 RBC 4.72 Hgb 14.5 Hct 40.3 MCV 85.4 MCH 30.7 MCHC 36.0 H RDW 13.6 Plt Count 257 MPV 9.6 Neut % (Auto) 49.8 Lymph % (Auto) 32.7 Mcculloch % (Auto) 14.2 H Eos % (Auto) 2.5 Baso % (Auto) 0.7 Neut # (Auto) 4.4 Lymph # (Auto) 2.9 Mcculloch # (Auto) 1.3 H Eos # (Auto) 0.2 Baso # (Auto) 0.1 Sodium 130 L 129 L Potassium 3.6 3.1 L Chloride 94 L 93 L Carbon Dioxide 28 27 Anion Gap 11.6 12.1 BUN 45 H 51 H Creatinine 1.80 H 2.10 H Estimated Creat Clear 27 24 Estimated GFR 28 L 23 L Est GFR ( Amer) 33 L 28 L D Glucose 105 H 86 Calcium 9.2 9.1 Phosphorus 4.1 D Magnesium 2.3 2.4 H D Total Bilirubin 0.6 0.5 AST 27 33 ALT 25 28 Alkaline Phosphatase 82 83 Total Protein 6.1 L 6.0 L Albumin 3.7 3.6 Globulin 2.4 2.4 Albumin/Globulin Ratio 1.5 1.5 DS: Diagnosis Discharge Diagnosis (1) LENA (acute kidney injury): Status: Acute Code(s): N17.9 - Acute kidney failure, unspecified (2) 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: Status: Acute Code(s): C20 - Malignant neoplasm of rectum; C77.5 - Secondary and unspecified malignant neoplasm of intrapelvic lymph nodes (3) Nausea vomiting and diarrhea: Status: Acute Code(s): R11.2 - Nausea with vomiting, unspecified; R19.7 - Diarrhea, unspecified (4) Hyperphosphatemia: Status: Acute Code(s): E83.39 - Other disorders of phosphorus metabolism (5) Hypertension: Status: Acute Code(s): I10 - Essential (primary) hypertension (6) Hyperlipidemia: Status: Acute Code(s): E78.5 - Hyperlipidemia, unspecified (7) Severe protein-calorie malnutrition: Status: Acute Code(s): E43 - Unspecified severe protein-calorie malnutrition Meds Home Medications and Allergies Home Medications ?Medication ?Instructions ?Recorded ?Confirmed ?Type aspirin 81 mg chewable tablet 81 mg PO DAILY 08/15/24 10/21/24 History rosuvastatin 20 mg tablet 20 mg PO HS 08/16/24 10/21/24 History lisinopril 10 mg tablet 20 mg PO DAILY 10/21/24 10/21/24 History ondansetron 8 mg disintegrating 8 mg PO DAILY 10/21/24 10/21/24 History tablet prochlorperazine maleate 10 mg 10 mg PO Q6HP PRN nausea and 10/21/24 10/21/24 History tablet (Compazine) vomiting calcium polycarbophil 625 mg 1,250 mg (2 x 625 mg) PO BID 30 10/24/24 Rx tablet (FiberCon) days #120 tabs New Prescriptions to Start Prescriptions: calcium polycarbophil [FiberCon] Johann Cheung Allergies Allergy/AdvReac Type Severity Reaction Status Date / Time No Known Allergies Allergy Verified 09/17/24 10:44 Discharge Plan Disposition Patient Disposition: Home, Self-Care Condition: Good Discharge Order Discharge Orders: Discharge Order (Routine); Ordered 10/24/24 Ordered By: Johann Cheung Follow up Plan Follow up with: Natalia Wayne APRN [Primary Care Provider] - 10/31/24 1:00 pm Prescriptions/Medication Reconciliation: New calcium polycarbophil [FiberCon] 625 mg Tablet 1,250 mg PO BID 30 Days Qty: 120 0RF Continued aspirin 81 mg tablet,chewable 81 mg PO DAILY rosuvastatin 20 mg tablet 20 mg PO HS Patient Comments: TAKE 1 TABLET BY MOUTH ONCE DAILY AT NIGHT prochlorperazine maleate [Compazine] 10 mg tablet 10 mg PO Q6HP PRN (Reason: nausea and vomiting) ondansetron 8 mg tablet,disintegrating 8 mg PO DAILY Rx Instructions: take one tablet daily for 2 days following chemotherapy -- repeat each cycle Held lisinopril 10 mg tablet 20 mg PO DAILY Hold Instructions: Do not resume until following up with primary care and evaluating for normalization of kidney function and stable blood pressure Patient Comments: TAKE ONE TABLET BY MOUTH DAILY FOR 7 DAYS THEN INCREASE TO TWO TABLETS DAILY Problem Reconciliation Problems Reviewed?: Yes Patient Discharge Instructions ACTIVITY: Continue current activity DIET: continue same diet Patient Instructions: DI for Pancreatitis, Nausea and Vomiting-Adult, DI for Acute Kidney Injury Print Language: Bahraini Providers Primary Care Provider: Natalia Wayne Admit Provider: Sarthak Mcneil Attending Provider: Sarthak Mcneil
[2024-10-24 08:00] VITALS: BP 116/70; PULSE 81; RESP 17; TEMP 36.6; O2SAT 98
[2024-10-24] MEDS: CALCIUM POLYCARBOPHIL 625MG TAB 1250 MG PO (08:03)
[2024-10-24] MEDS: ENOXAPARIN 30MG/0.3ML SYRINGE 30 MG SUBCUT (08:03)
[2024-10-24] MEDS: ASPIRIN 81MG CHEWABLE TABLET 81 MG PO (08:03)
--- NOTE | 2024-10-24 11:29 | HMH.PHAINT1 ---
Pharmacy Intervention Comments: COUNSELED PATIENT ON MEDICATIONS. PATIENT VERBALIZED UNDERSTANDING.
[2024-10-24 12:00] VITALS: BP 128/65; PULSE 85; RESP 16; TEMP 36.9; O2SAT 95
--- NOTE | 2024-10-25 11:50 | SW/DCPLANNER ---
Spoke with patient on the phone. Patient stated that she is doing well. Patient stated that she is aware of her upcoming appointments. Patient stated that she was able to get her new medicine from clinic pharmacy when she was discharged. Patient stated that she has no concerns or questions at this time. Cinthia Jerez
== END 2024-10-24 14:02 | disposition home or self-care (01) | DRG 682 ==
LOC: ER 16:07 → 2ND 16:36
PROVIDERS: Internal Medicine Adolescent Medicine; Admitting Provider Student in an Organized Health Care Education/Training Program; Emergency Provider Emergency Medicine; PCP Nurse Practitioner Family; Visit Provider Student in an Organized Health Care Education/Training Program
DX: N17.9 Acute kidney failure, unspecified (principal); E43 Unspecified severe protein-calorie malnutrition; C19 Malignant neoplasm of rectosigmoid junction; C77.5 Secondary and unspecified malignant neoplasm of intrapelvic lymph nodes; F17.210 Nicotine dependence, cigarettes, uncomplicated; I12.9 Hypertensive chronic kidney disease with stage 1 through stage 4 chronic kidney disease, or unspecified chronic kidney disease; N18.31 Chronic kidney disease, stage 3a; E78.5 Hyperlipidemia, unspecified; Z79.82 Long term (current) use of aspirin; Z71.6 Tobacco abuse counseling; Z79.02 Long term (current) use of antithrombotics/antiplatelets; Z68.22 Body mass index [BMI] 22.0-22.9, adult; Z93.2 Ileostomy status; Z79.899 Other long term (current) drug therapy
CPT/HCPCS: 36415; 71250; 74176; 80048; 80053; 81001; 82803; 83605; 83690; 83735; 83970; 84100; 84436; 84439; 84443; 85025; 86803; 87086; 87389; 87507; 87636; 93005; 99285; J0131; J1642; J1650; J1885; J2405; J3475; J7120

== ENCOUNTER 2024-10-30 10:04 | Outpatient (CLI) | payer MEDICARE, SELFPAY ==
[2024-10-30 10:38] LABS: Basophils # 0.1 K/mm3 (0-0.2); Basophils % 0.7 % (0.1-2.0); Eosinophils # 0.2 K/mm3 (0.0-0.4); Eosinophils % 1.4 % (0.1-12.0); Hematocrit 39.3 % (37.0-47.0); Hemoglobin 14.1 g/dL (12.2-16.2); Lymphocytes # 3.4 K/mm3 (0.7-4.5); Lymphocytes % 32.3 % (10-50); Mean Corpuscular HGB Conc 35.9 g/dL (31.8-35.4); Mean Corpuscular Hemoglobin 31.4 pg (27.0-31.2); Mean Corpuscular Volume 87.5 fl (81-99); Mean Platelet Volume 9.2 fl (7.4-10.4); Monocytes # 1.3 K/mm3 (0.1-1.0); Monocytes % 11.8 % (1.7-9.3); Neutrophils # 5.7 K/mm3 (1.8-7.8); Neutrophils % 53.6 % (37.0-80.0); Platelet Count 243 K/mm3 (142-424); Red Blood Count 4.49 M/mm3 (4.20-5.40); Red Cell Distribution Width 14.6 % (11.5-17.5); White Blood Count 10.6 K/mm3 (4.8-10.8)
--- NOTE | 2024-10-30 10:38 | PC.NURSE ---
1024- labs drawn in specialty clinic per Dr. Yip. cbc, cmp, mag, lipase per MD order. drawn via butterfly needle in left wrist. pt tolerated well. needle removed and coban applied.
[2024-10-30 10:52] LABS: Chloride 93 mmol/L (98-107)
[2024-10-30 10:53] LABS: Potassium 3.5 mmoL/L (3.5-5.1); Sodium 127 mmol/L (136-145)
[2024-10-30 10:55] LABS: Alanine Aminotransferase 31 U/L (12-78); Alkaline Phosphatase 86 U/L (38-126); Anion Gap 11.5 mEq/L (5-15); Aspartate Amino Transferase 34 U/L (14-36); Bilirubin,Total 0.6 mg/dl (0.2-1.3); Blood Urea Nitrogen 34 mg/dl (7-17); Carbon Dioxide 26 mmol/L (22.0-30.0); Estimated Glomerular Filt Rate 31 ml/min (>60); GFR (African American) 38 ML/MIN (>60); Glucose 101 mg/dl (74-100); Lipase 593 U/L (23-300); Total Protein,Serum 6.3 g/dl (6.3-8.2)
[2024-10-30 10:56] LABS: Magnesium 2.1 mg/dl (1.6-2.3)
[2024-10-30 11:43] LABS: Albumin Level 3.7 g/dl (3.5-5.0); Albumin/Globulin Ratio 1.4 (1.1-1.8); Globulin 2.6 g/dL (1.3-3.2)
== END 2024-10-30 10:35 | disposition home or self-care (01) ==
LOC: INF 10:05
PROVIDERS: PCP Nurse Practitioner Family; Visit Provider Internal Medicine Medical Oncology
DX: C20 Malignant neoplasm of rectum (principal); C77.5 Secondary and unspecified malignant neoplasm of intrapelvic lymph nodes
CPT/HCPCS: 36415; 80053; 83690; 83735; 85025; J1642

== ENCOUNTER 2024-11-07 09:25 | Outpatient (CLI) | payer MEDICARE, SELFPAY ==
[2024-11-07 09:44] LABS: Basophils # 0.1 K/mm3 (0-0.2); Basophils % 0.5 % (0.1-2.0); Eosinophils # 0.2 K/mm3 (0.0-0.4); Eosinophils % 1.9 % (0.1-12.0); Hematocrit 36.9 % (37.0-47.0); Hemoglobin 12.5 g/dL (12.2-16.2); Lymphocytes # 3.4 K/mm3 (0.7-4.5); Lymphocytes % 30.2 % (10-50); Mean Corpuscular HGB Conc 33.9 g/dL (31.8-35.4); Mean Corpuscular Hemoglobin 30.5 pg (27.0-31.2); Mean Platelet Volume 8.7 fl (7.4-10.4); Monocytes # 0.8 K/mm3 (0.1-1.0); Monocytes % 6.8 % (1.7-9.3); Neutrophils # 6.7 K/mm3 (1.8-7.8); Neutrophils % 60.3 % (37.0-80.0); Platelet Count 268 K/mm3 (142-424); Red Cell Distribution Width 15.9 % (11.5-17.5); White Blood Count 11.2 K/mm3 (4.8-10.8)
[2024-11-07 09:48] LABS: Albumin Level 3.8 g/dl (3.5-5.0); Chloride 104 mmol/L (98-107); Potassium 4.1 mmoL/L (3.5-5.1); Sodium 133 mmol/L (136-145)
[2024-11-07 09:50] LABS: Alanine Aminotransferase 30 U/L (12-78); Aspartate Amino Transferase 30 U/L (14-36); Blood Urea Nitrogen 23 mg/dl (7-17); Estimated Glomerular Filt Rate 31 ml/min (>60); GFR (African American) 38 ML/MIN (>60)
[2024-11-07 09:51] LABS: Albumin/Globulin Ratio 1.4 (1.1-1.8); Alkaline Phosphatase 94 U/L (38-126); Anion Gap 11.1 mEq/L (5-15); Bilirubin,Total 0.5 mg/dl (0.2-1.3); Calcium 9.4 mg/dl (8.4-10.2); Carbon Dioxide 22 mmol/L (22.0-30.0); Globulin 2.7 g/dL (1.3-3.2); Glucose 90 mg/dl (74-100); Magnesium 1.9 mg/dl (1.6-2.3); Total Protein,Serum 6.5 g/dl (6.3-8.2)
[2024-11-07 09:55] LABS: Lipase 762 U/L (23-300)
[2024-11-07] MEDS: SODIUM CHLORIDE 0.9% 10ML FLUSH SYRINGE 10 ML IV (10:29)
== END 2024-11-07 10:30 | disposition home or self-care (01) ==
LOC: INF 09:27
PROVIDERS: PCP Nurse Practitioner Family; Visit Provider Internal Medicine Medical Oncology
DX: C20 Malignant neoplasm of rectum (principal); C77.5 Secondary and unspecified malignant neoplasm of intrapelvic lymph nodes
CPT/HCPCS: 36591; 80053; 83690; 83735; 85025; J1642

== ENCOUNTER 2024-11-14 07:40 | Outpatient (CLI) | payer MEDICARE, SELFPAY ==
--- NOTE | 2024-11-14 07:41 | MR_ITS ---
FINAL REPORT TECHNIQUE: Multiplanar and multisequence MR imaging was performed through the abdomen before and after contrast administration. CLINICAL HISTORY: colon cancer. DIAGNOSED 5 MONTHS AGO. COMPARISON: CT of the abdomen and pelvis 10/21/2024 FINDINGS: LUNG BASES: Clear. LIVER: Normal signal intensity. There is a left hepatic lobe cyst measuring up to 6 mm in size. No suspicious enhancing masses. No intrahepatic biliary dilation. There is no enhancement to indicate metastases. GALLBLADDER: Normal. COMMON BILE DUCT: Normal. SPLEEN: Normal. ADRENAL GLANDS: Normal. PANCREAS: Normal signal intensity. No evidence of acute pancreatitis. No pancreatic ductal dilation. KIDNEYS: There is a 4.5 cm left renal cyst present. The remainder of the kidneys are unremarkable in appearance without evidence of hydronephrosis. BOWEL: Unremarkable PERITONEUM/RETROPERITONEUM: No free fluid or free air. LYMPH NODES: No adenopathy. BONES: No aggressive osseous lesion. SOFT TISSUES: Normal. IMPRESSION: There is no evidence of metastatic disease in the abdomen. No evidence of biliary ductal dilatation. 4.5 cm left renal cyst, without enhancement. Reviewed, Interpreted and Dictated by Micheal Ramirez MD Transcribed by Lala Marie Authenticated and [facility]
[2024-11-14] MEDS: SODIUM CHLORIDE 0.9% 50ML BAG 20 ML IV (09:03)
[2024-11-14] MEDS: GADOTERIDOL INJ 20ML SYRINGE 13 ML IV (09:03)
[2024-11-14] MEDS: SODIUM CHLORIDE 0.9% 10ML SYR (RAD ONLY) 10 ML IV (09:03)
== END 2024-11-14 23:59 | disposition home or self-care (01) ==
LOC: RAD 07:41
PROVIDERS: PCP Nurse Practitioner Family; Visit Provider Internal Medicine Medical Oncology
DX: C20 Malignant neoplasm of rectum (principal); C77.5 Secondary and unspecified malignant neoplasm of intrapelvic lymph nodes
CPT/HCPCS: 74183; 76376; A9576

== ENCOUNTER 2024-11-26 09:27 | Outpatient (CLI) | payer MEDICARE, SELFPAY ==
[2024-11-26 09:51] LABS: Basophils # 0.1 K/mm3 (0-0.2); Basophils % 0.6 % (0.1-2.0); Eosinophils # 0.1 K/mm3 (0.0-0.4); Eosinophils % 1.1 % (0.1-12.0); Hematocrit 36.5 % (37.0-47.0); Hemoglobin 12.2 g/dL (12.2-16.2); Lymphocytes # 3.4 K/mm3 (0.7-4.5); Lymphocytes % 32.8 % (10-50); Mean Corpuscular HGB Conc 33.4 g/dL (31.8-35.4); Mean Corpuscular Volume 92.9 fl (81-99); Mean Platelet Volume 8.9 fl (7.4-10.4); Monocytes # 0.7 K/mm3 (0.1-1.0); Monocytes % 6.8 % (1.7-9.3); Neutrophils # 6.1 K/mm3 (1.8-7.8); Neutrophils % 58.2 % (37.0-80.0); Platelet Count 416 K/mm3 (142-424); Red Blood Count 3.93 M/mm3 (4.20-5.40); Red Cell Distribution Width 16.7 % (11.5-17.5); White Blood Count 10.5 K/mm3 (4.8-10.8)
[2024-11-26 09:57] LABS: Albumin Level 3.9 g/dl (3.5-5.0); Chloride 110 mmol/L (98-107); Sodium 138 mmol/L (136-145)
[2024-11-26 09:58] LABS: Potassium 4.4 mmoL/L (3.5-5.1)
[2024-11-26 10:00] LABS: Alanine Aminotransferase 14 U/L (12-78); Albumin/Globulin Ratio 1.4 (1.1-1.8); Alkaline Phosphatase 86 U/L (38-126); Anion Gap 11.4 mEq/L (5-15); Aspartate Amino Transferase 20 U/L (14-36); Bilirubin,Total 0.5 mg/dl (0.2-1.3); Blood Urea Nitrogen 19 mg/dl (7-17); Carbon Dioxide 21 mmol/L (22.0-30.0); Estimated Glomerular Filt Rate 29 ml/min (>60); GFR (African American) 35 ML/MIN (>60); Globulin 2.8 g/dL (1.3-3.2); Lipase 456 U/L (23-300); Total Protein,Serum 6.7 g/dl (6.3-8.2)
[2024-11-26 10:01] LABS: Calcium 9.5 mg/dl (8.4-10.2); Glucose 91 mg/dl (74-100)
== END 2024-11-26 23:59 ==
LOC: INF 09:29
PROVIDERS: PCP Nurse Practitioner Family; Visit Provider Internal Medicine Medical Oncology
DX: C44.91 Basal cell carcinoma of skin, unspecified (principal)
CPT/HCPCS: 36591; 80053; 83690; 85025; J1642

== ENCOUNTER 2025-02-27 13:18 | Outpatient (CLI) | payer MEDICARE, SELFPAY ==
[2025-02-27] MEDS: SODIUM CHLORIDE 0.9% 10ML FLUSH SYRINGE 10 ML IV (13:30)
[2025-02-27 13:50] LABS: MANUAL DIFFERENTIAL MANUAL DIFFERENTIAL (MANUAL DIFF)
[2025-02-27 14:06] LABS: Albumin Level 3.6 g/dl (3.5-5.0); Chloride 115 mmol/L (98-107); Potassium 4.1 mmoL/L (3.5-5.1); Sodium 142 mmol/L (136-145)
[2025-02-27 14:09] LABS: Alanine Aminotransferase 11 U/L (12-78); Albumin/Globulin Ratio 1.4 (1.1-1.8); Alkaline Phosphatase 67 U/L (38-126); Anion Gap 8.1 mEq/L (5-15); Aspartate Amino Transferase 17 U/L (14-36); Blood Urea Nitrogen 18 mg/dl (7-17); Carbon Dioxide 23 mmol/L (22.0-30.0); Estimated Glomerular Filt Rate 26 ml/min (>60); GFR (African American) 31 ML/MIN (>60); Globulin 2.6 g/dL (1.3-3.2); Glucose 96 mg/dl (74-100); Total Protein,Serum 6.2 g/dl (6.3-8.2)
[2025-02-27 14:11] LABS: Bilirubin,Total 0.1 mg/dl (0.2-1.3)
[2025-02-27 14:33] LABS: Basophils # 0.1 K/mm3 (0-0.2); Basophils % 0.7 % (0.1-2.0); Eosinophils # 0.2 Kmm3 (0.0-0.4); Eosinophils % 3.1 % (0.1-12.0); Hematocrit 35.2 % (37.0-47.0); Hemoglobin 11.8 g/dL (12.2-16.2); Lymphocytes # 1.4 K/mm3 (0.7-4.5); Lymphocytes % 20.7 % (10-50); Mean Corpuscular HGB Conc 33.5 g/dL (31.8-35.4); Mean Corpuscular Hemoglobin 33.6 pg (27.0-31.2); Mean Corpuscular Volume 100.3 fl (81-99); Mean Platelet Volume 9.9 fl (7.4-10.4); Monocytes # 0.7 K/mm3 (0.1-1.0); Monocytes % 10.3 % (1.7-9.3); Neutrophils # 4.4 K/mm3 (1.8-7.8); Neutrophils % 64.8 % (37.0-80.0); Platelet Count 283 K/mm3 (142-424); Red Blood Count 3.51 M/mm3 (4.20-5.40); Red Cell Distribution Width 15.1 % (11.5-17.5); White Blood Count 6.8 K/mm3 (4.8-10.8)
[2025-02-27 14:41] LABS: Eosinophils % 3 % (0-3); Lymphocytes % 20 % (10-50); Monocytes % 9 % (2-9); Neutrophils % 68 % (42-76); Total Cells Counted 100
[2025-02-27 14:51] LABS: Platelet Estimate Normal; RBC Morphology Normal
[2025-02-28 05:29] LABS: CEA 1.5 ng/mL (0.0-4.7)
== END 2025-02-27 13:40 | disposition home or self-care (01) ==
LOC: INF 13:20
PROVIDERS: Visit Provider Internal Medicine Medical Oncology
DX: C20 Malignant neoplasm of rectum (principal); C77.5 Secondary and unspecified malignant neoplasm of intrapelvic lymph nodes
CPT/HCPCS: 36591; 80053; 82378; 85007; 85014; 85018; 85048; 85049; J1642

== ENCOUNTER 2025-03-12 08:24 | Outpatient (CLI) | payer MEDICARE, SELFPAY ==
--- OUTSIDE RECORDS SUMMARY | 2025-01-14 13:30 | XMS_ITS | Encounter Summary ---
Author Organization [facility] Address [address] [place] [address] Care Team Providers Care Cotton Breeder Name Role Phone Natalia Wayne YVONNE Primary Care Provider Reason for Visit * Episode Based Medications (Routine) - Closed Specialty Diagnoses / Procedures Referred By Lexii moody Referred To Contact Diagnoses Rectal cancer (CMS/HCC) Procedures Protracted Fluorouracil Every 7 Days x 3 + XRT Joi Stewart MD [address] [facility] Tete Baker [address] [address] Phone: tel: fax: Joi Stewart MD 800 [facility] [address] [address] Phone: tel: fax: Referral ID Status Reason Start Date Expiration Date Visits Re quested Visits Authorized [id number] Closed 12/23/2024 06/24/2026 1 5 Encounter Details Date Type Department Care Team (Latest Contact Info) Description 01/14/2025 1:30 PM EDT - 01/14/2025 11:59 PM EDT Hospital Encounter [facility] [address] [place] [address] Rectal cancer (CMS/HCC) (Primary Dx) Discharge Disposition: Home or Self Care Social History Tobacco Use Types Packs/Day Years Used Date Smoking Tobacco: Every Day Cigarettes 0.5 50.4 Started: 1975 Passive Smoke Exposure: Past Smokeless Tobacco: Never Alcohol Use Standard Drinks/Week Comments Never 0 (1 standard drink = 0.6 oz pur e alcohol) Humiliation, Afraid, Rape, and Kick questionnair e Answer Date Recorded Within the last year, have y ou been afraid of your partner or ex-partner? No 09/02/2024 Within the last year, have y ou been humiliated or emotionally abused in other ways by your partner or ex-partner? No Within the last year, have y ou been kicked, hit, slapped, or otherwise physically hurt by your partner or ex-partner? No 09/02/2024 Within the last year, have y ou been raped or forced to have any kind of sexual activity by your partner or ex-partner? No 09/02/2024 PHQ-2 Answer Date Recorded Patient Health Questionnaire-2 Score 0 01/07/2025 Hunger Vital Sign Answer Date Recorded Within the past 12 months, y ou worried that your food would run out before you got the money to buy more. Never true 09/02/20 24 Within the past 12 months, t he food you bought just didn't last and you didn't have money to get more. Never true 09/02/2024 PRAPARE - Transportation Answer Date Re corded In the past 12 months, has l ack of transportation kept you from medical appointments or from getting medications? No 11/2023 In the past 12 months, has l ack of transportation kept you from meetings, work, or from getting things needed for daily living? No 09/02/2024 Housing Stability Vital Sign Answer Derrick e Recorded In the last 12 months, was t here a time when you were not able to pay the mortgage or rent on time? No 09/02/2024 Number of Times Moved in the Last Year Not on fi le 09/02/2024 At any time in the past 12 m [facility], were you homeless or living in a custodial (including now)? No 09/02/2024 Utilities Answer Date Recorded In the past 12 months has th e electric, gas, oil, or water company threatened to shut off services in your home? No 09/02/2024 Comments No Sex and Gender Information Value Date Recorded Sex Assigned at Not on file Legal Sex Female 2:42 PM EDT Gender Identity Not on file Sexual Orientation Not on file documented as of this encounter Last Filed Vital Signs Vital Sign Reading Time Taken Comments Blood Pressure 139/85 01/14/2025 1:45 PM EDT Pulse 97 01/14/2025 1:45 PM EDT Temperature 36.3 C (97.4 F) 01/14/2025 1:45 PM EDT Respiratory Rate 16 01/14/2025 1:45 PM EDT Oxygen Saturation 97% 01/14/2025 1:45 PM EDT Inhaled Oxygen Concentration - - Weight 67.7 kg (149 lb 4 oz) 01/14/2025 1:45 PM EDT Height 170.2 cm (5' 7 ) 01/14/2025 1:45 PM EDT Body Mass Index 23.38 01/14/2025 1:45 PM EDT documented in this encounter Medications at Time of Discharge acetaminophen (Tylenol) 500 MG tablet Take 1 tablet (500 mg) by mouth every 6 (six) hours. 100 tablet 09/05/2024 aspirin 81 MG EC tablet Take 1 tablet (81 mg) by mouth daily. Calcium Polycarbophil (Fiber) 625 MG tablet Take 2 tablets by mouth in the morning and 2 tablets before bedtime. lisinopril 10 MG tablet Take 1 tablet (10 mg) by mouth Daily. 10/03/2024 ondansetron ODT (Zofran-ODT) 4 MG disintegrating tablet Take 1 tablet (4 mg) by mouth every 6 (six) hours if needed for nausea or vomiting. 20 tablet 09/05/2024 rosuvastatin (Crestor) 20 MG tablet Take 1 tablet (20 mg) by mouth every night. 30 tablet 5 08/08/2024 documented as of this encounter Miscellaneous Notes * Addendum Note - Regino Harden - 01/14/2025 1:30 PM EDTEncounter addended by: Regino Harden on: 01/15/2025 1:57 PM Actions taken: Charge Capture section accepted * Addendum Note - Lakeisha Alicea - 01/14/2025 1:30 PM EDTEncounter addended by: Lakeisha Alicea on: 01/16/2025 10:46 AM Actions taken: Charge Capture section accepted * Addendum Note - Britta Bangura - 01/14/2025 1:30 PM EDTEncounter addended by: Britta Bangura on: 01/17/2025 8:34 AM Actions taken: Charge Capture section accepted * Progress Notes - Sree Guerrero, PharmD - 01/14/2025 1:30 PM EDT Pharmacy Hematology/Oncology Treatment Note Lashae Wyman is a 74 y.o. female with Cancer Staging Rectal cancer (CMS/HCC) Staging form: Colon and Rectum, AJCC 8th Edition - Clinical stage from 08/06/2024: Stage IIIB (cT3, cN1, cM0) - Signed by Manoj Fowler MD on 08/13/2024 . Study Patient: no Treatment Plan reviewed for 5FU + RT [x] Follow-Up Clinical Review for Cycle 1 Day 22 [] Follow-Up Clinical Review for Continuous Oral Therapy Interval History: Ms. Wyman presents to clinic for treatment discussions regarding her rectal cancer. She had very significant GI side effects with capecitabine in the past requiring hospitalization, so we will plan to proceed with protracted 5FU + RT. Ms. Wyman will receive RT locally in [place], [place] beginning tomorrow. She was consented and counseled in clinic today. Labs reviewed and appropriate for treatment initiation and will need to be reassessed by pharmacy satellite on 12/31. Of note, creatinine is elevated today so we will give 1L of IVF in infusion. 01/07/25: Patient reports tolerating treatment well. 2 additional weeks (C1D22 and C1D28) of fluorouracil added to treatment plan to align with XRT schedule. Labs meet parameters for treatment today. Today's Wt: Wt Readings from Last 1 Encounters: 01/14/25 67.7 kg (149 lb 4 oz) Dosing Wt: 68.9 kg Dosing Ht: 167.6 cm DosingBSA: 1.78 m2 Recent Labs: Lab Results Component Value Date WBC 6.97 01/14/2025 HGB 13.7 01/14/2025 HCT 39.7 01/14/2025 MCV 96 01/14/2025 PLT 230 01/14/2025 Lab Results Component Value Date GLUCOSE 111 (H) 01/14/2025 CALCIUM 9.7 01/14/2025 NA 136 01/14/2025 K 4.4 01/14/2025 CO2 25 01/14/2025 CL 101 01/14/2025 BUN 19 01/14/2025 CREATININE 1.57 (H) 01/14/2025 Lab Results Component Value Date ALT 12 01/14/2025 AST 18 01/14/2025 ALKPHOS 75 01/14/2025 BILITOT 0.3 01/14/2025 Lab Results Component Value Date NEUTROABS 4.85 01/14/2025 Lab Results Component Value Date MG 1.9 09/03/2024 No results found for: TSH No results found for: URINEPRO Vitals: Visit Vitals BP 139/85 (BP Location: Left arm, Patient Position: Sitting, BP Cuff Size: Adult) Pulse 97 Temp 36.3 ??C (97.4 ??F) (Oral) Resp 16 Other Relevant Monitoring: Treatment/Therapy Plan: Fluorouracil 1575 mg/m2 (2750 mg) IV D1 over 168 hours Every 7 days [x] No dose adjustments made Current Treatment Plan History: Protracted 5FU + RT Cycle 1: Day 1: 12/24/24 Day 8: 12/31/24 Day 15: 01/07/25 Day 22: 01/14/25 Prior Treatment History: CapeOx initiated 10/01/24 x 1 cycle (stopped d/t hospitalization for GI toxicity) Plan: Patient will return to clinic in 2 weeks. Will follow-up at that time. Sree Guerrero, SelwynD Clinical Oncology Pharmacist documented in this encounter Plan of Treatment Upcoming Encounters Date Type Department Care Team (Late st Contact Info) Description 04/16/2025 3:00 PM EDT Appointment [facility] [address] [place] [address] Manoj Fowler MD [address] [facility] [address] [place] [address] 04/22/2025 12:40 PM EDT Appointment [facility] [address] [place] [address] 04/22/2025 3:00 PM EDT Office Visit [facility] Multidisciplinary Oncology Clinic [address] [place] [address] Joi Stewart MD [address] [facility] Tete [address] [place] [address] 08/14/2025 10:00 AM EST Appointment [facility] [address] [facility] 5th Floor [address] [place] [address] 08/14/2025 11:00 AM EST Office Visit [facility] [address] [facility] 5th Floor [address] [place] [address] Hilary Cordova MD [address] [place] [address] documented as of this encounter Procedures Procedure Name Priority Date/Time Associated Diagnosis Comments CBC WITH AUTO DIFFERENTIAL Routine 01/14/2025 1:57 PM EDT Rectal cancer (CMS/HCC) COMPREHENSIVE METABOLIC PANEL, PLASMA Routine 01/14/2025 1:57 PM EDT Rectal cancer (CMS/HCC) documented in this encounter Results * (ABNORMAL) Comprehensive metabolic panel (01/14/2025 1:57 PM EDT) Glucose, Plasma 111(H) 74 - 99 mg/dL 01/14/2025 3:04 PM EDT [facility] BUN, Plasma 19 8 - 23 mg/dL 01/14/2025 3:04 PM EDT [facility] Creatinine, Plasma 1.57(H) 0.60 - 1.10 mg/dL 01/14/2025 3:04 PM EDT [facility] BUN/Creatinine Ratio 12 01/14/2025 3:04 PM EDT [facility] Sodium, Plasma 136 136 - 145 mmol/L 01/14/2025 3:04 PM EDT [facility] Potassium, Plasma 4.4 3.6 - 4.9 mmol/L 01/14/2025 3:04 PM EDT [facility] Chloride, Plasma 101 97 - 107 mmol/L 01/14/2025 3:04 PM EDT [facility] CO2, Plasma 25 22 - 29 mmol/L 01/14/2025 3:04 PM EDT [facility] Anion Gap 10 6 - 16 mmol/L 01/14/2025 3:04 PM EDT [facility] Total Calcium, Plasma 9.7 8.9 - 10.2 mg/dL 01/14/2025 3:04 PM EDT [facility] Total Protein 7.4 6.3 - 7.9 g/dL 01/14/2025 3:04 PM EDT [facility] Albumin, Plasma 4.2 3.5 - 5.2 g/dL 01/14/2025 3:04 PM EDT [facility] AST, Plasma 18 10 - 35 U/L 01/14/2025 3:04 PM EDT [facility] Comment:Hemolyzed, result ma y be falsely increased. ALT, Plasma 12 10 - 35 U/L 01/14/2025 3:04 PM EDT [facility] Alkaline Phosphatase, Plasma 75 46 - 142 U/L 01/14/2025 3:04 PM EDT [facility] Total Bilirubin, Plasma 0.3 0.2 - 1.1 mg/dL 01/14/2025 3:04 PM EDT [facility] eGFRcr 34.3 mL/min/1.7 3m*2 01/14/2025 3:04 PM EDT [facility] Comment:Reported eGFRcr in m L/min/1.73m2 is based the CKD-EPI 2020 equation that does not use a race coefficient. Blood Venous blood specimen / Unknown (Central Line) Existing Catheter / Unknown 01/14/2025 1:57 PM EDT 01/14/2025 2:26 PM EDT us Joi Stewart MD LAB BLOOD ORDERABLES Final Res ult [facility] [address] [place] [address] * (ABNORMAL) CBC and differential (01/14/2025 1:57 PM EDT) Pathologist [facility] WBC Count 6.97 3.70 - 10.30 10*3/uL LAB HEMATOLOGY METHOD 01/14/2025 2:07 PM EDT [facility] RBC Count 4.14 3.90 - 5.20 10*6/uL LAB HEMATOLOGY METHOD 01/14/2025 2:07 PM EDT [facility] HGB 13.7 11.2 - 15.7 g/dL LAB HEMATOLOGY METHOD 01/14/2025 2:07 PM EDT [facility] HCT 39.7 34.0 - 45.0 % LAB HEMATOLOGY METHOD 01/14/2025 2:07 PM EDT [facility] Platelet Count 230 155 - 369 10*3/uL LAB HEMATOLOGY METHOD 01/14/2025 2:07 PM EDT [facility] MCV 96 79 - 98 fL LAB HEMATOLOGY METHOD 01/14/2025 2:07 PM EDT [facility] MCH 33.1(H) 26.0 - 32.0 pg LAB HEMATOLOGY METHOD 01/14/2025 2:07 PM EDT [facility] MCHC 34.5 30.7 - 35.5 g/dL LAB HEMATOLOGY METHOD 01/14/2025 2:07 PM EDT [facility] RDW 14.6(H) 11.5 - 14.5 % LAB HEMATOLOGY METHOD 01/14/2025 2:07 PM EDT [facility] MPV 8.9 8.8 - 12.5 fL LAB HEMATOLOGY METHOD 01/14/2025 2:07 PM EDT [facility] nRBC 0.0 <=0.0 per 100 WBCs LAB HEMATOLOGY METHOD 01/14/2025 2:07 PM EDT [facility] Differential Type Automated LAB HEMATOLOGY METHOD 01/14/2025 2:07 PM EDT [facility] Neutrophils % 70 % LAB HEMATOLOGY METHOD 01/14/2025 2:07 PM EDT [facility] Lymphocytes % 18 % LAB HEMATOLOGY METHOD 01/14/2025 2:07 PM EDT [facility] Monocytes % 7 % LAB HEMATOLOGY METHOD 01/14/2025 2:07 PM EDT [facility] Eosinophils % 4 % LAB HEMATOLOGY METHOD 01/14/2025 2:07 PM EDT [facility] Basophils % 1 % LAB HEMATOLOGY METHOD 01/14/2025 2:07 PM EDT [facility] Immature Granulocytes % 0 % LAB HEMATOLOGY METHOD 01/14/2025 2:07 PM EDT [facility] Neutrophils Absolute 4.85 1.60 - 6.10 10*3/uL LAB HEMATOLOGY METHOD 01/14/2025 2:07 PM EDT [facility] Lymphocytes Absolute 1.25 1.20 - 3.90 10*3/uL LAB HEMATOLOGY METHOD 01/14/2025 2:07 PM EDT [facility] Monocytes Absolute 0.51 0.30 - 0.90 10*3/uL LAB HEMATOLOGY METHOD 01/14/2025 2:07 PM EDT [facility] Eosinophils Absolute 0.29 0.00 - 0.50 10*3/uL LAB HEMATOLOGY METHOD 01/14/2025 2:07 PM EDT [facility] Basophils Absolute 0.05 0.00 - 0.10 10*3/uL LAB HEMATOLOGY METHOD 01/14/2025 2:07 PM EDT [facility] Immature Granulocytes Absolute 0.02 0.00 - 0.06 10*3/uL LAB HEMATOLOGY METHOD 01/14/2025 2:07 PM EDT [facility] Blood Venous blood specimen / Unknown (Central Line) Existing Catheter / Unknown 01/14/2025 1:57 PM EDT 01/14/2025 2:05 PM EDT Narrative [facility] - 01/14/2025 2:07 PM EDT Therapeutic decision making should be based on absolute values, rather than percentages. us Joi Stewart MD LAB BLOOD ORDERABLES Final Res ult [facility] [address] [place] [address] documented in this encounter Visit Diagnoses Diagnosis Rectal cancer (CMS/HCC)- Primary Malignant neoplasm of rectum documented in this encounter Administered Medications Inactive Administered Medications - up to 3 most recent administrations Medication Order MAR Action Action Date Dose Rate Site fluorouracil (Adrucil) 2,750 mg in sodium chloride 0.9 % 101 mL infusion - for home use 2,750 mg (rounded from 2,803.5 mg = 1,575 mg/m2 1.78 m2 Treatment Plan BSA from Recorded weight), Intravenous, at 0.6 mL/hr, Administer over 168 Hours, Over 168 hours, Dispense from [facility] Pharmacy Hazardous Drug-Tier 1 Precautions. Administer via [facility]. Dispose in BL[facility] Hazardous Waste Container. Chemotherapy: refer to [id number]., First dose on Mon01/14/25 at 1615, For 1 doseIndications:Rectal cancer (CMS/HCC) Given 01/14/2025 4:40 PM EDT 2,750 mg 0.6 mL/hr ondansetron ODT (Zofran-ODT) disintegrating tablet 8 mg 8 mg, Oral, Once, 1 dose, On Mon01/14/25 at 1545, RoutineIndications:Rectal cancer (CMS/HCC) Given 01/14/2025 3:56 PM EDT 8 mg sodium chloride 0.9 % bolus 1,000 mL 1,000 mL, Intravenous, Once as needed, 1 dose, Starting on Mon01/14/25 at 1519, Until Mon01/14/25 at 1635, Administer over 60 Minutes, Routine, for dehydrationIndications:Rectal cancer (CMS/HCC) New Bag 01/14/2025 3:32 PM EDT 1,000 mL 1000 mL/hr documented in this encounter Additional Health Concerns Assessment Noted Time A fall risk assessment has been complete d for the patient 01/14/2025 1:42 PM EDT A Body Mass Index follow-up plan has been documented for the patient 01/14/2025 3:56 PM EDT documented as of this encounter Care Teams Cotton Breeder Relationship Specialty Start Date End Date Natalia Wayne APRN [address] [place] [address] PCP - General 12/10/24 documented as of this encounter
--- OUTSIDE RECORDS SUMMARY | 2025-01-14 13:30 | XMS_ITS | Encounter Summary ---
Author Organization [facility] Address [address] [place] [address] Care Team Providers Care Extractor Tender Raw Stock Name Role Phone Natalia Wayne YVONNE Primary Care Provider [phone] Reason for Visit * Episode Based Medications (Routine) - Closed Specialty Diagnoses / Procedures Referred By Lexii moody Referred To Contact Diagnoses Rectal cancer (CMS/HCC) Procedures Protracted Fluorouracil Every 7 Days x 3 + XRT Joi Stewart MD [address] [facility] Tete Baker [address] [address] Phone: tel: fax: Joi Stewart MD [address] [facility] [address] [address] Phone: tel: fax: Referral ID Status Reason Start Date Expiration Date Visits Re quested Visits Authorized [id number] Closed 12/23/2024 06/24/2026 1 5 Encounter Details Date Type Department Care Team (Latest Contact Info) Description 01/14/2025 1:30 PM EDT - 01/14/2025 11:59 PM EDT Hospital Encounter [facility] [address] [place] [address] Rectal cancer (CMS/HCC) (Primary Dx) Discharge Disposition: [...] any time in the past 12 m [facility], were you homeless or living in a chcf (including now)? No 09/02/2024 Utilities Answer Date [...] Ms. Wyman will receive RT locally in [place], [place] beginning tomorrow. She was consented and [...] PM EDT Appointment [facility] [address] [place] [address] Manoj Fowler MD [address] [place] [address] 04/22/2025 12:40 PM EDT Appointment [facility] [address] [place] [address] 04/22/2025 3:00 PM EDT Office Visit [facility] Multidisciplinary Oncology Clinic [address] [place] [address] Joi Stewart MD [address] [facility] [address] [place] [address] 08/14/2025 10:00 AM EST Appointment [facility] [address] [facility] 5th Floor [address] [place] [address] 08/14/2025 11:00 AM EST Office Visit [facility] [address] [facility] 5th Floor [address] [place] [address] Hilary Cordova MD [address] [place] [address] documented as of this encounter [...] - 99 mg/dL 01/14/2025 3:04 PM EDT [facility] BUN, Plasma 19 8 - 23 mg/dL 01/14/2025 3:04 PM EDT [facility] Creatinine, Plasma 1.57(H) 0.60 - 1.10 mg/dL 01/14/2025 3:04 PM EDT [facility] BUN/Creatinine Ratio 12 01/14/2025 3:04 PM EDT [facility] Sodium, Plasma 136 136 - 145 mmol/L 01/14/2025 3:04 PM EDT [facility] Potassium, Plasma 4.4 3.6 - 4.9 mmol/L 01/14/2025 3:04 PM EDT [facility] Chloride, Plasma 101 97 - 107 mmol/L 01/14/2025 3:04 PM EDT [facility] CO2, Plasma 25 22 - 29 mmol/L 01/14/2025 3:04 PM EDT [facility] Anion Gap 10 6 - 16 mmol/L 01/14/2025 3:04 PM EDT [facility] Total Calcium, Plasma 9.7 8.9 - 10.2 mg/dL 01/14/2025 3:04 PM EDT [facility] Total Protein 7.4 6.3 - 7.9 g/dL 01/14/2025 3:04 PM EDT [facility] Albumin, Plasma 4.2 3.5 - 5.2 g/dL 01/14/2025 3:04 PM EDT [facility] AST, Plasma 18 10 - 35 U/L 01/14/2025 3:04 PM EDT [facility] Comment:Hemolyzed, result ma y be falsely increased. ALT, Plasma 12 10 - 35 U/L 01/14/2025 3:04 PM EDT [facility] Alkaline Phosphatase, Plasma 75 46 - 142 U/L 01/14/2025 3:04 PM EDT [facility] Total Bilirubin, Plasma 0.3 0.2 - 1.1 mg/dL 01/14/2025 3:04 PM EDT [facility] eGFRcr 34.3 mL/min/1.7 3m*2 01/14/2025 3:04 PM EDT [facility] Comment:Reported eGFRcr in m L/min/1.73m2 is based the CKD-EPI 2020 equation that does not use a race coefficient. Blood Venous blood specimen / Unknown (Central Line) Existing Catheter / Unknown 01/14/2025 1:57 PM EDT 01/14/2025 2:26 PM EDT us Joi Stewart MD LAB BLOOD ORDERABLES Final Res ult [facility] [address] [place] [address] * (ABNORMAL) CBC and differential (01/14/2025 1:57 PM EDT) Pathologist [facility] WBC Count 6.97 3.70 - 10.30 10*3/uL LAB HEMATOLOGY METHOD 01/14/2025 2:07 PM EDT [facility] RBC Count 4.14 3.90 - 5.20 10*6/uL LAB HEMATOLOGY METHOD 01/14/2025 2:07 PM EDT [facility] HGB 13.7 11.2 - 15.7 g/dL LAB HEMATOLOGY METHOD 01/14/2025 2:07 PM EDT [facility] HCT 39.7 34.0 - 45.0 % LAB HEMATOLOGY METHOD 01/14/2025 2:07 PM EDT [facility] Platelet Count 230 155 - 369 10*3/uL LAB HEMATOLOGY METHOD 01/14/2025 2:07 PM EDT [facility] MCV 96 79 - 98 fL LAB HEMATOLOGY METHOD 01/14/2025 2:07 PM EDT [facility] MCH 33.1(H) 26.0 - 32.0 pg LAB HEMATOLOGY METHOD 01/14/2025 2:07 PM EDT [facility] MCHC 34.5 30.7 - 35.5 g/dL LAB HEMATOLOGY METHOD 01/14/2025 2:07 PM EDT [facility] RDW 14.6(H) 11.5 - 14.5 % LAB HEMATOLOGY METHOD 01/14/2025 2:07 PM EDT [facility] MPV 8.9 8.8 - 12.5 fL LAB HEMATOLOGY METHOD 01/14/2025 2:07 PM EDT [facility] nRBC 0.0 <=0.0 per 100 WBCs LAB HEMATOLOGY METHOD 01/14/2025 2:07 PM EDT [facility] Differential Type Automated LAB HEMATOLOGY METHOD 01/14/2025 2:07 PM EDT [facility] Neutrophils % 70 % LAB HEMATOLOGY METHOD 01/14/2025 2:07 PM EDT [facility] Lymphocytes % 18 % LAB HEMATOLOGY METHOD 01/14/2025 2:07 PM EDT [facility] Monocytes % 7 % LAB HEMATOLOGY METHOD 01/14/2025 2:07 PM EDT [facility] Eosinophils % 4 % LAB HEMATOLOGY METHOD 01/14/2025 2:07 PM EDT [facility] Basophils % 1 % LAB HEMATOLOGY METHOD 01/14/2025 2:07 PM EDT [facility] Immature Granulocytes % 0 % LAB HEMATOLOGY METHOD 01/14/2025 2:07 PM EDT [facility] Neutrophils Absolute 4.85 1.60 - 6.10 10*3/uL LAB HEMATOLOGY METHOD 01/14/2025 2:07 PM EDT [facility] Lymphocytes Absolute 1.25 1.20 - 3.90 10*3/uL LAB HEMATOLOGY METHOD 01/14/2025 2:07 PM EDT [facility] Monocytes Absolute 0.51 0.30 - 0.90 10*3/uL LAB HEMATOLOGY METHOD 01/14/2025 2:07 PM EDT [facility] Eosinophils Absolute 0.29 0.00 - 0.50 10*3/uL LAB HEMATOLOGY METHOD 01/14/2025 2:07 PM EDT [facility] Basophils Absolute 0.05 0.00 - 0.10 10*3/uL LAB HEMATOLOGY METHOD 01/14/2025 2:07 PM EDT [facility] Immature Granulocytes Absolute 0.02 0.00 - 0.06 10*3/uL LAB HEMATOLOGY METHOD 01/14/2025 2:07 PM EDT [facility] Blood Venous blood specimen / Unknown (Central Line) Existing Catheter / Unknown 01/14/2025 1:57 PM EDT 01/14/2025 2:05 PM EDT Narrative [facility] - 01/14/2025 2:07 PM EDT Therapeutic decision making should be based on absolute values, rather than percentages. us Joi Stewart MD LAB BLOOD ORDERABLES Final Res ult [facility] [address] [place] [address] documented in this encounter Visit Diagnoses Diagnosis [...] 168 Hours, Over 168 hours, Dispense from [facility] Pharmacy Hazardous Drug-Tier 1 Precautions. Administer [...] documented as of this encounter Care Teams Extractor Tender Raw Stock Relationship Specialty Start Date End Date Natalia Wayne APRN [address] [place] [address] PCP - General 12/10/24 documented as of this encounter
--- OUTSIDE RECORDS SUMMARY | 2025-01-21 13:24 | XMS_ITS | Encounter Summary ---
Author Organization [facility] Address [address] [place] [address] Care Team Providers Care Tax Technician Name Role Phone Natalia Wayne YVONNE Primary Care Provider [phone] Reason for Visit * Episode Based Medications (Routine) - Closed Specialty Diagnoses / Procedures Referred By Lexii moody Referred To Contact Diagnoses Rectal cancer (CMS/HCC) Procedures Protracted Fluorouracil Every 7 Days x 3 + XRT Joi Stewart MD [address] [facility] Tete Baker [address] [address] Phone: tel: fax: Joi Stewart MD [address] [facility] [address] [address] Phone: tel: fax: Referral ID Status Reason Start Date Expiration Date Visits Re quested Visits Authorized [id number] Closed 12/23/2024 06/24/2026 1 5 Encounter Details Date Type Department Care Team (Latest Contact Info) Description 01/21/2025 1:24 PM EDT - 01/21/2025 11:59 PM EDT Hospital Encounter [facility] [address] [place] [address] Rectal cancer (CMS/HCC) (Primary Dx) Discharge Disposition: Home or Self Care Social History Tobacco Use Types Packs/Day Years Used Date Smoking Tobacco: Every Day Cigarettes 0.5 50.4 Started: 1975 Passive Smoke Exposure: Past Smokeless Tobacco: Never Tobacco Cessation:Ready to Q uit: Not Asked; Counseling Given: Not Answered Alcohol Use Standard Drinks/Week Comments Never 0 [...] any time in the past 12 m [facility], were you homeless or living in a jail (including now)? No 09/02/2024 Utilities Answer Date [...] Sign Reading Time Taken Comments Blood Pressure 134/71 01/21/2025 1:27 PM EDT Pulse 93 01/21/2025 1:27 PM EDT Temperature - - Respiratory Rate 18 01/21/2025 1:27 PM EDT Oxygen Saturation 99% 01/21/2025 1:27 PM EDT Inhaled Oxygen Concentration - - Weight 67.5 kg (148 lb 13 oz) 01/21/2025 1:27 PM EDT Height 170.2 cm (5' 7 ) 01/21/2025 1:27 PM EDT Body Mass Index 23.31 01/21/2025 1:27 PM EDT documented in this encounter Medications [...] encounter Miscellaneous Notes * Addendum Note - Rae Carlson - 01/21/2025 2:00 PM EDTEncounter addended by: Rae Carlson on: 01/22/2025 12:41 PM Actions taken: Charge Capture section accepted * Addendum Note - Britta Bangura - 01/21/2025 2:00 PM EDTEncounter addended by: Britta Bangura on: 01/22/2025 3:48 PM Actions taken: Charge Capture section accepted * Progress Notes - Sree Guerrero, PharmD - 01/21/2025 2:00 PM EDT Pharmacy Hematology/Oncology Treatment Note Lashae [...] Follow-Up Clinical Review for Cycle 1 Day 28 [] Follow-Up Clinical Review for Continuous Oral Therapy Interval History: Ms. Wyman presents to clinic for treatment discussions regarding her rectal cancer. She had very significant GI side effects with capecitabine in the past requiring hospitalization, so we will plan to proceed with protracted 5FU + RT. Ms. Wyman will receive RT locally in [place], [place] beginning tomorrow. She was consented and [...] Wt: Wt Readings from Last 1 Encounters: 01/21/25 67.5 kg (148 lb 13 oz) Dosing Wt: 68.9 kg Dosing Ht: 167.6 cm DosingBSA: 1.78 m2 Recent Labs: Lab Results Component Value Date WBC 7.11 01/21/2025 HGB 11.8 01/21/2025 HCT 34.1 01/21/2025 MCV 97 01/21/2025 PLT 238 01/21/2025 Lab Results Component Value Date GLUCOSE 120 (H) 01/21/2025 CALCIUM 9.2 01/21/2025 NA 136 01/21/2025 K 3.6 01/21/2025 CO2 23 01/21/2025 CL 103 01/21/2025 BUN 23 01/21/2025 CREATININE 1.62 (H) 01/21/2025 Lab Results Component Value Date ALT 10 01/21/2025 AST 11 01/21/2025 ALKPHOS 59 01/21/2025 BILITOT 0.3 01/21/2025 Lab Results Component Value Date NEUTROABS 5.26 01/21/2025 Lab Results Component Value Date MG 1.9 09/03/2024 No results found for: TSH No results found for: URINEPRO Vitals: Visit Vitals BP 134/71 (BP Location: Left arm, Patient Position: Sitting, BP Cuff Size: Adult) Pulse 93 Resp 18 Other Relevant Monitoring: Treatment/Therapy Plan: Fluorouracil 1575 mg/m2 (2750 mg) IV D1 over 168 hours Every 7 days [x] No dose adjustments made Current Treatment Plan History: Protracted 5FU + RT Cycle 1: Day 1: 12/24/24 Day 8: 12/31/24 Day 15: 01/07/25 Day 22: 01/14/25 Day 28: 01/21/25 Prior Treatment History: CapeOx initiated 10/01/24 x 1 cycle (stopped d/t hospitalization for GI toxicity) Plan: Patient will return to clinic in 2 weeks. Will follow-up at that time. Sree Guerrero PharmD Clinical Oncology Pharmacist documented in this encounter Plan of Treatment Upcoming Encounters Date Type Department Care Team (Late st Contact Info) Description 04/16/2025 3:00 PM EDT Appointment [facility] [address] [place] [address] Manoj Folwer MD [address] [place] [address] 04/22/2025 12:40 PM EDT Appointment [facility] [address] [place] [address] 04/22/2025 3:00 PM EDT Office Visit [facility] Mult[facility] On[facility] Clinic [address] [place] [address] Joi Stewart MD [address] [place] [address] 08/14/2025 10:00 AM EST Appointment [facility] [address] [place] [address] 08/14/2025 11:00 AM EST Office Visit [facility] [address] [facility] 5th Floor [address] [place] [address] Hilary Cordoav MD [address] [place] [address] documented as of this encounter Procedures Procedure Name Priority Date/Time Associated Diagnosis Comments CBC WITH AUTO DIFFERENTIAL Routine 01/21/2025 2:16 PM EDT Rectal cancer (CMS/HCC) COMPREHENSIVE METABOLIC PANEL, PLASMA Routine 01/21/2025 2:16 PM EDT Rectal cancer (CMS/HCC) documented in this encounter Results * (ABNORMAL) CBC and differential (01/21/2025 2:16 PM EDT) WBC Count 7.11 3.70 - 10.30 10*3/uL LAB HEMATOLOGY METHOD 01/21/2025 2:47 PM EDT [facility] RBC Count 3.53(L) 3.90 - 5.20 10*6/uL LAB HEMATOLOGY METHOD 01/21/2025 2:47 PM EDT [facility] HGB 11.8 11.2 - 15.7 g/dL LAB HEMATOLOGY METHOD 01/21/2025 2:47 PM EDT [facility] HCT 34.1 34.0 - 45.0 % LAB HEMATOLOGY METHOD 01/21/2025 2:47 PM EDT [facility] Platelet Count 238 155 - 369 10*3/uL LAB HEMATOLOGY METHOD 01/21/2025 2:47 PM EDT [facility] MCV 97 79 - 98 fL LAB HEMATOLOGY METHOD 01/21/2025 2:47 PM EDT [facility] MCH 33.4(H) 26.0 - 32.0 pg LAB HEMATOLOGY METHOD 01/21/2025 2:47 PM EDT [facility] MCHC 34.6 30.7 - 35.5 g/dL LAB HEMATOLOGY METHOD 01/21/2025 2:47 PM EDT [facility] RDW 14.9(H) 11.5 - 14.5 % LAB HEMATOLOGY METHOD 01/21/2025 2:47 PM EDT [facility] MPV 9.1 8.8 - 12.5 fL LAB HEMATOLOGY METHOD 01/21/2025 2:47 PM EDT [facility] nRBC 0.0 <=0.0 per 100 WBCs LAB HEMATOLOGY METHOD 01/21/2025 2:47 PM EDT [facility] Differential Type Automated LAB HEMATOLOGY METHOD 01/21/2025 2:47 PM EDT [facility] Neutrophils % 75 % LAB HEMATOLOGY METHOD 01/21/2025 2:47 PM EDT [facility] Lymphocytes % 12 % LAB HEMATOLOGY METHOD 01/21/2025 2:47 PM EDT [facility] Monocytes % 9 % LAB HEMATOLOGY METHOD 01/21/2025 2:47 PM EDT [facility] Eosinophils % 3 % LAB HEMATOLOGY METHOD 01/21/2025 2:47 PM EDT [facility] Basophils % 0 % LAB HEMATOLOGY METHOD 01/21/2025 2:47 PM EDT [facility] Immature Granulocytes % 1 % LAB HEMATOLOGY METHOD 01/21/2025 2:47 PM EDT [facility] Neutrophils Absolute 5.26 1.60 - 6.10 10*3/uL LAB HEMATOLOGY METHOD 01/21/2025 2:47 PM EDT [facility] Lymphocytes Absolute 0.86(L) 1.20 - 3.90 10*3/uL LAB HEMATOLOGY METHOD 01/21/2025 2:47 PM EDT [facility] Monocytes Absolute 0.65 0.30 - 0.90 10*3/uL LAB HEMATOLOGY METHOD 01/21/2025 2:47 PM EDT [facility] Eosinophils Absolute 0.23 0.00 - 0.50 10*3/uL LAB HEMATOLOGY METHOD 01/21/2025 2:47 PM EDT [facility] Basophils Absolute 0.03 0.00 - 0.10 10*3/uL LAB HEMATOLOGY METHOD 01/21/2025 2:47 PM EDT [facility] Immature Granulocytes Absolute 0.08(H) 0.00 - 0.06 10*3/uL LAB HEMATOLOGY METHOD 01/21/2025 2:47 PM EDT [facility] Blood Blood sample taken from central line / Unknown (Port) Long-term Catheter / Unknown 01/21/2025 2:16 PM EDT 01/21/2025 2:36 PM EDT Narrative [facility] - 01/21/2025 2:47 PM EDT Therapeutic decision making should be based on absolute values, rather than percentages. us Joi Stewart MD LAB BLOOD ORDERABLES Final Res ult [facility] [address] [place] [address] * (ABNORMAL) Comprehensive metabolic panel (01/21/2025 2:16 PM EDT) Glucose, Plasma 120(H) 74 - 99 mg/dL 01/21/2025 3:16 PM EDT [facility] BUN, Plasma 23 8 - 23 mg/dL 01/21/2025 3:16 PM EDT [facility] Creatinine, Plasma 1.62(H) 0.60 - 1.10 mg/dL 01/21/2025 3:16 PM EDT [facility] BUN/Creatinine Ratio 14 01/21/2025 3:16 PM EDT [facility] Sodium, Plasma 136 136 - 145 mmol/L 01/21/2025 3:16 PM EDT [facility] Potassium, Plasma 3.6 3.6 - 4.9 mmol/L 01/21/2025 3:16 PM EDT [facility] Chloride, Plasma 103 97 - 107 mmol/L 01/21/2025 3:16 PM EDT [facility] CO2, Plasma 23 22 - 29 mmol/L 01/21/2025 3:16 PM EDT [facility] Anion Gap 10 6 - 16 mmol/L 01/21/2025 3:16 PM EDT [facility] Total Calcium, Plasma 9.2 8.9 - 10.2 mg/dL 01/21/2025 3:16 PM EDT [facility] Total Protein 5.9(L) 6.3 - 7.9 g/dL 01/21/2025 3:16 PM EDT [facility] Albumin, Plasma 3.7 3.5 - 5.2 g/dL 01/21/2025 3:16 PM EDT [facility] AST, Plasma 11 10 - 35 U/L 01/21/2025 3:16 PM EDT [facility] ALT, Plasma 10 10 - 35 U/L 01/21/2025 3:16 PM EDT [facility] Alkaline Phosphatase, Plasma 59 46 - 142 U/L 01/21/2025 3:16 PM EDT [facility] Total Bilirubin, Plasma 0.3 0.2 - 1.1 mg/dL 01/21/2025 3:16 PM EDT [facility] eGFRcr 33.0 mL/min/1.7 3m*2 01/21/2025 3:16 PM EDT [facility] Comment:Reported eGFRcr in m L/min/1.73m2 is based the CKD-EPI 2020 equation that does not use a race coefficient. Blood Venous blood specimen / Unknown (Port) Long-term Catheter / Unknown 01/21/2025 2:16 PM EDT 01/21/2025 2:45 PM EDT us Joi Stewart MD LAB BLOOD ORDERABLES Final Res ult [facility] [address] [place] [address] documented in this encounter Visit Diagnoses Diagnosis [...] 168 Hours, Over 168 hours, Dispense from [facility] Hazardous Drug-Tier 1 Precautions. Administer via [facility]. Dispose in BLACK Hazardous Waste Container. Chemotherapy: refer to [id number]., First dose on Mon01/21/25 at 1615, For 1 doseIndications:Rectal cancer (CMS/HCC) Given 01/21/2025 3:56 PM EDT 2,750 mg 0.6 mL/hr ondansetron ODT (Zofran-ODT) disintegrating tablet 8 mg 8 mg, Oral, Once, 1 dose, On Mon01/21/25 at 1545, RoutineIndications:Rectal cancer (CMS/HCC) Given 01/21/2025 3:24 PM EDT 8 mg sodium chloride 0.9 % bolus 1,000 mL 1,000 mL, Intravenous, Once as needed, 1 dose, Starting on Mon01/21/25 at 1358, Until Mon01/21/25 at 1524, Administer over 60 Minutes, Routine, for dehydrationIndications:Rectal cancer (CMS/HCC) New Bag 01/21/2025 2:16 PM EDT 1,000 mL 1000 mL/hr documented in this encounter Additional Health Concerns Assessment Noted Time A fall risk assessment has been complete d for the patient 01/21/2025 1:27 PM EDT A Body Mass Index follow-up plan has been documented for the patient 01/21/2025 4:15 PM EDT documented as of this encounter Care Teams Tax Technician Relationship Specialty Start Date End Date Natalia Wayne APRN [address] [place] [address] PCP - General 12/10/24 documented as of this encounter
--- OUTSIDE RECORDS SUMMARY | 2025-01-21 13:24 | XMS_ITS | Encounter Summary ---
Author Organization [facility] Address [address] [place] [address] Care Team Providers Care Etcher Apprentice Name Role Phone Natalia Wayne YVONNE Primary Care Provider [phone] Reason for Visit * Episode Based Medications (Routine) - Closed Specialty Diagnoses / Procedures Referred By Lexii moody Referred To Contact Diagnoses Rectal cancer (CMS/HCC) Procedures Protracted Fluorouracil Every 7 Days x 3 + XRT Joi Stewart MD 800 [facility] Tete Bkaer [address] [address] Phone: tel: fax: Joi Stewart MD 800 [facility] [address] [address] Phone: tel: fax: Referral ID Status Reason Start Date Expiration Date Visits Re quested Visits Authorized [id number] Closed 12/23/2024 06/24/2026 1 5 Encounter Details Date Type Department Care Team (Latest Contact Info) Description 01/21/2025 1:24 PM EDT - 01/21/2025 11:59 PM EDT Hospital Encounter [facility] [address] [place] [address] Rectal cancer (CMS/HCC) (Primary Dx) Discharge Disposition: [...] any time in the past 12 m [facility], were you homeless or living in a snf (including now)? No 09/02/2024 Utilities Answer Date [...] Ms. Wyman will receive RT locally in [place], [place] beginning tomorrow. She was consented and [...] Appointment [facility] [address] [place] [address] Manoj Fowler MD [address] [place] [address] 04/22/2025 12:40 PM EDT Appointment [facility] [address] [place] [address] 04/22/2025 3:00 PM EDT Office Visit [facility] Multidisciplinary Oncology Clinic [address] [place] [address] Joi Stewart MD [address] [place] [address] 08/14/2025 10:00 AM EST Appointment [facility] [address] [place] [address] 08/14/2025 11:00 AM EST Office Visit [facility] [address] [facility] 5th Floor [address] [place] [address] Hilary Cordova MD [address] [place] [address] documented as of this encounter Procedures Procedure [...] LAB HEMATOLOGY METHOD 01/21/2025 2:47 PM EDT [facility] RBC Count 3.53(L) 3.90 - 5.20 10*6/uL LAB HEMATOLOGY METHOD 01/21/2025 2:47 PM EDT [facility] HGB 11.8 11.2 - 15.7 g/dL LAB HEMATOLOGY METHOD 01/21/2025 2:47 PM EDT [facility] HCT 34.1 34.0 - 45.0 % LAB HEMATOLOGY METHOD 01/21/2025 2:47 PM EDT [facility] Platelet Count 238 155 - 369 10*3/uL LAB HEMATOLOGY METHOD 01/21/2025 2:47 PM EDT [facility] MCV 97 79 - 98 fL LAB HEMATOLOGY METHOD 01/21/2025 2:47 PM EDT [facility] MCH 33.4(H) 26.0 - 32.0 pg LAB HEMATOLOGY METHOD 01/21/2025 2:47 PM EDT [facility] MCHC 34.6 30.7 - 35.5 g/dL LAB HEMATOLOGY METHOD 01/21/2025 2:47 PM EDT [facility] RDW 14.9(H) 11.5 - 14.5 % LAB HEMATOLOGY METHOD 01/21/2025 2:47 PM EDT [facility] MPV 9.1 8.8 - 12.5 fL LAB HEMATOLOGY METHOD 01/21/2025 2:47 PM EDT [facility] nRBC 0.0 <=0.0 per 100 WBCs LAB HEMATOLOGY METHOD 01/21/2025 2:47 PM EDT [facility] Differential Type Automated LAB HEMATOLOGY METHOD 01/21/2025 2:47 PM EDT [facility] Neutrophils % 75 % LAB HEMATOLOGY METHOD 01/21/2025 2:47 PM EDT [facility] Lymphocytes % 12 % LAB HEMATOLOGY METHOD 01/21/2025 2:47 PM EDT [facility] Monocytes % 9 % LAB HEMATOLOGY METHOD 01/21/2025 2:47 PM EDT [facility] Eosinophils % 3 % LAB HEMATOLOGY METHOD 01/21/2025 2:47 PM EDT [facility] Basophils % 0 % LAB HEMATOLOGY METHOD 01/21/2025 2:47 PM EDT [facility] Immature Granulocytes % 1 % LAB HEMATOLOGY METHOD 01/21/2025 2:47 PM EDT [facility] Neutrophils Absolute 5.26 1.60 - 6.10 10*3/uL LAB HEMATOLOGY METHOD 01/21/2025 2:47 PM EDT [facility] Lymphocytes Absolute 0.86(L) 1.20 - 3.90 10*3/uL LAB HEMATOLOGY METHOD 01/21/2025 2:47 PM EDT [facility] Monocytes Absolute 0.65 0.30 - 0.90 10*3/uL LAB HEMATOLOGY METHOD 01/21/2025 2:47 PM EDT [facility] Eosinophils Absolute 0.23 0.00 - 0.50 10*3/uL LAB HEMATOLOGY METHOD 01/21/2025 2:47 PM EDT [facility] Basophils Absolute 0.03 0.00 - 0.10 10*3/uL LAB HEMATOLOGY METHOD 01/21/2025 2:47 PM EDT [facility] Immature Granulocytes Absolute 0.08(H) 0.00 - 0.06 10*3/uL LAB HEMATOLOGY METHOD 01/21/2025 2:47 PM EDT [facility] Blood Blood sample taken from central line / Unknown (Port) Long-term Catheter / Unknown 01/21/2025 2:16 PM EDT 01/21/2025 2:36 PM EDT Narrative [facility] - 01/21/2025 2:47 PM EDT Therapeutic decision making should be based on absolute values, rather than percentages. us Joi Stewart MD LAB BLOOD ORDERABLES Final Res ult [facility] [address] [place] [address] * (ABNORMAL) Comprehensive metabolic panel (01/21/2025 2:16 PM EDT) Glucose, Plasma 120(H) 74 - 99 mg/dL 01/21/2025 3:16 PM EDT [facility] BUN, Plasma 23 8 - 23 mg/dL 01/21/2025 3:16 PM EDT [facility] Creatinine, Plasma 1.62(H) 0.60 - 1.10 mg/dL 01/21/2025 3:16 PM EDT [facility] BUN/Creatinine Ratio 14 01/21/2025 3:16 PM EDT [facility] Sodium, Plasma 136 136 - 145 mmol/L 01/21/2025 3:16 PM EDT [facility] Potassium, Plasma 3.6 3.6 - 4.9 mmol/L 01/21/2025 3:16 PM EDT [facility] Chloride, Plasma 103 97 - 107 mmol/L 01/21/2025 3:16 PM EDT [facility] CO2, Plasma 23 22 - 29 mmol/L 01/21/2025 3:16 PM EDT [facility] Anion Gap 10 6 - 16 mmol/L 01/21/2025 3:16 PM EDT [facility] Total Calcium, Plasma 9.2 8.9 - 10.2 mg/dL 01/21/2025 3:16 PM EDT [facility] Total Protein 5.9(L) 6.3 - 7.9 g/dL 01/21/2025 3:16 PM EDT [facility] Albumin, Plasma 3.7 3.5 - 5.2 g/dL 01/21/2025 3:16 PM EDT [facility] AST, Plasma 11 10 - 35 U/L 01/21/2025 3:16 PM EDT [facility] ALT, Plasma 10 10 - 35 U/L 01/21/2025 3:16 PM EDT [facility] Alkaline Phosphatase, Plasma 59 46 - 142 U/L 01/21/2025 3:16 PM EDT [facility] Total Bilirubin, Plasma 0.3 0.2 - 1.1 mg/dL 01/21/2025 3:16 PM EDT [facility] eGFRcr 33.0 mL/min/1.7 3m*2 01/21/2025 3:16 PM EDT [facility] Comment:Reported eGFRcr in m L/min/1.73m2 is based the CKD-EPI 2020 equation that does not use a race coefficient. Blood Venous blood specimen / Unknown (Port) Long-term Catheter / Unknown 01/21/2025 2:16 PM EDT 01/21/2025 2:45 PM EDT us Joi Stewart MD LAB BLOOD ORDERABLES Final Res ult [facility] [address] [place] [address] documented in this encounter Visit Diagnoses Diagnosis [...] 168 Hours, Over 168 hours, Dispense from [facility] Hazardous Drug-Tier 1 Precautions. Administer [...] documented as of this encounter Care Teams Etcher Apprentice Relationship Specialty Start Date End Date Natalia Wayne APRN [address] [place] [address] PCP - General 12/10/24 documented as of this encounter
--- OUTSIDE RECORDS SUMMARY | 2025-01-28 14:00 | XMS_ITS | Encounter Summary ---
Author Organization Healthcare Address [address] [place] [address] Care Team Providers Care Cognos Bi Developer Name Role Phone Natalia Wayne YVONNE Primary Care Provider [phone] Encounter Details Date Type Department Care Team (Latest Contact Info) Description 01/28/2025 2:00 PM EDT - 01/28/2025 11:59 PM EDT Hospital Encounter [facility] [address] [place] [address] Rectal cancer (CMS/HCC) (Primary Dx) Discharge Disposition: [...] any time in the past 12 m [facility], were you homeless or living in a m[facility] (including now)? No 09/02/2024 Utilities Answer Date [...] 3:00 PM EDT Appointment [facility] [address] [place] [address] Manoj Fowler MD [address] [facility] [address] [place] [address] 04/22/2025 12:40 PM EDT Appointment [facility] [address] [place] [address] 04/22/2025 3:00 PM EDT Office Visit [facility] [address] [place] [address] Joi Stewart MD [address] [facility] [address] [facility] [address] [place] [address] 08/14/2025 10:00 AM EST Appointment [facility] Vascular Lab [address] [facility] 5th Floor [address], [address] [place] [address] 08/14/2025 11:00 AM EST Office Visit [facility] [address] [facility] 5th Floor [address], [address] [place] [address] Hilary Cordova MD [address] [facility] [address] [place] [address] documented as of this encounter [...] documented as of this encounter Care Teams Cognos Bi Developer Relationship Specialty Start Date End Date Natalia Wayne, FURNACE ERECTOR [address] [place] [address] PCP - General 12/10/24 documented as of this encounter
--- OUTSIDE RECORDS SUMMARY | 2025-01-28 14:00 | XMS_ITS | Encounter Summary ---
Author Organization Healthcare Address [address] [place] [address] Care Team Providers Care Shaft Tender Name Role Phone Natalia Wayne YVONNE Primary Care Provider [phone] Encounter Details Date Type Department Care Team (Latest Contact Info) Description 01/28/2025 2:00 PM EDT - 01/28/2025 11:59 PM EDT Hospital Encounter [facility] [address] [place] [address] Rectal cancer (CMS/HCC) (Primary Dx) Discharge Disposition: [...] any time in the past 12 m [facility], were you homeless or living in a [...] 3:00 PM EDT Appointment [facility] [address] [place] [address] Manoj Fowler MD [address] [facility] [address] [place] [address] 04/22/2025 12:40 PM EDT Appointment [facility] [address]nd [place] [address] 04/22/2025 3:00 PM EDT Office Visit [facility] [address] [place] [address] Joi Stewart MD 800 [facility] Tete Baker [facility] [address] [place] [address] 08/14/2025 10:00 AM EST Appointment [facility] Lab [address] [facility] 5th Floor [address], [address] [place] [address] 08/14/2025 11:00 AM EST Office Visit [place] [facility] [address] [facility] 5th Floor [address], [address] [place] [address] Hilary Cordova MD [address] [facility] [address] [place] [address] documented as of this encounter [...] documented as of this encounter Care Teams Shaft Tender Relationship Specialty Start Date End Date Natalia Wayne, EXPLORATION MANAGER [address] [place] [address] PCP - General 12/10/24 documented as of this encounter
--- OUTSIDE RECORDS SUMMARY | 2025-02-04 09:12 | XMS_ITS | Encounter Summary ---
Author Organization [facility] Address [address] [place] [address] Care Team Providers Care Oxidation Engineer Name Role Phone Natalia Wayne YVONNE Primary Care Provider [phone] Reason for Referral * Imaging (Routine) - Closed Specialty Diagnoses / Procedures Referred By Lexii moody Referred To Contact Radiology Diagnoses Rectal cancer (CMS/HCC) Procedures MR Pelvis w and wo IV Contrast Manoj Fowler MD [address] [address] Phone: tel: fax: Referral ID Status Reason Start Date Expiration Date Visits Re quested Visits Authorized [id number] Closed 09/24/2024 03/26/2026 1 1 Reason for Visit * Imaging (Routine) - Closed Specialty Diagnoses / Procedures Referred By Lexii moody Referred To Contact Radiology Diagnoses Rectal cancer (CMS/HCC) Procedures MR Pelvis w and wo IV Contrast Manoj Fowler MD [address] [address] Phone: tel: fax: Referral ID Status Reason Start Date Expiration Date Visits Re quested Visits Authorized [id number] Closed 09/24/2024 03/26/2026 1 1 Encounter Details Date Type Department Care Team (Latest Contact Info) Description 02/04/2025 9:12 AM EDT - 02/04/2025 11:59 PM EDT Hospital Encounter [facility] [address] [place] [address] Rectal cancer ([facility]) Discharge Disposition: Home or Self Care Social [...] any time in the past 12 m [facility], were you homeless or living in a group home (including now)? No 09/02/2024 Utilities Answer Date Recorded In the past 12 months has e [employer], gas, oil, or water [employer] threatened to shut off services in your home? No 09/02/2024 Comments No Sex and Gender Information Value Date Recorded Sex Assigned at Not on file Legal Sex Female 2:42 PM EDT Gender Identity Not on file Sexual Orientation Not on file documented as of this encounter Medications at Time of Discharge [...] tablet (10 mg) by mouth Daily. 10/03/2024 loperamide (Imodium A-D) 2 MG tablet Take 1 tablet by mouth 4 times a day as needed for diarrhea. ondansetron ODT (Zofran-ODT) 4 MG disintegrating tablet [...] 3:00 PM EDT Appointment [facility] [address] [place] [address] Manoj Fowler MD [address] [place] [address] 04/22/2025 12:40 PM EDT Appointment [facility] [address]nd [place] [address] 04/22/2025 3:00 PM EDT Office Visit [facility] [address] [place] [address] Joi Stewart MD 800 [facility] [address] [place] [address] 08/14/2025 10:00 AM EST Appointment [facility] Vascular Lab [address] [facility] 5th Floor [address], [address] [place] [address] 08/14/2025 11:00 AM EST Office Visit [facility] [address] [facility] 5th Floor [address], [address] [place] [address] Hilary Cordova MD [address] [facility] [address] [place] [address] documented as of this encounter Procedures Procedure Name Priority Date/Time Associated Diagnosis Comments MR PELVIS W AND WO IV CONTRAST Routine 02/04/2025 10:40 AM EDT Rectal cancer (CMS/HCC) documented in this encounter Results * MR Pelvis w and wo IV Contrast (02/04/2025 10:40 AM EDT) Anatomical Region Laterality Modality Abdomen Magnetic Resonan ce Impressions 02/04/2025 12:47 PM EDT Since 08/06/2024, post treatment primary tumor assessment reflects incomplete response. Small focus of residual tumor. In comparison to the prior treatment there has been a significant loss in tumor size. Mesorectal lymph nodes: No suspicious mesorectal nodes, resolved from prior. Extramesorectal lymph nodes: No suspicious extramesorectal lymph nodes. CRITICAL RESULT: No. COMMUNICATION: Per this written report. By electronically signing this report, I, the attending physician, attest that I have personally reviewed the images/data for the above examination(s) and agree with the final edited report. Drafted by Jena Dia MD on 02/04/2025 11:29 AM Final report signed by Johann Chopra MD on 02/04/2025 12:47 PM Narrative 02/04/2025 12:47 PM EDT CLINICAL INDICATION: Rectal Cancer RESTAGING. Pretreatment Tumor staging: T3a N+ Prior treatment: PLASTER TENDER completed 01/29 TECHNIQUE: Multiplanar, multisequence MR imaging of the pelvis was performed on a 3T magnet both before and after administration of 6.5 mL of intravenous Gadavist contrast. COMPARISON: 08/06/2024: MR pelvis with and without contrast FINDINGS: Treated primary tumor characteristics: Significantly decreased size of the polypoid lesion in the upper rectum with minimal residual disease. New T2 markedly hypointense T2 scarring along the left/posterior rectum at the site of primary tumor. Subtle residual nodular focus of hazy T2 intermediate signal along the mucosal/submucosal margin of the left upper rectum at the site of primary tumor (series 7, images 29/30 and series 8, images 43/45), with peripheral T2 dark scarring along the serosal margin. This focus demonstrates hyperenhancement similar to prior as well as restricted diffusion (series 13, image 28 and series 10/11, images 29/30). An area of T2 intermediate signal along the anterior wall of the upper rectum (series 7, image 27) is favored to represent artifact an absence of correlate on additional sequences, lack of restricted diffusion, and absence of tumor involving the anterior wall on baseline staging MRI. Restricted diffusion in tumor or tumor bed is Present. Compared to prior treatment, DWI has significantly decreased in both intensity and extent compared to prior. T2W: Distance of inferior margin of treated tumor to anal verge: 10.5 cm Distance of inferior margin of treated tumor to top of sphincter complex/anorectal junction: 8.2 cm Relationship of treated tumor to anterior peritoneal reflection: Above Current craniocaudal length of 0.9 cm (series 8, image 45), which has decreased compared to pretreatment craniocaudal length of 3 cm. Current maximal wall thickness of 0.9 cm (series 7, image 29), which has decreased compared to pretreatment maximal wall thickness of 1.6 cm. Invasion of anal sphincter complex: Not applicable due to tumor location. Extramural Vascular Invasion (EMVI): No. None evident in pretreatment. Mesorectal Fascia (MRF): Shortest distance of tumor/fibrosis to mesorectal fascia: 8 mm (series 7, image 30) Tumor deposit, LN, or EMVI do not threaten ( e 1 m and d 2 mm) or invade (< 1 mm) the Mesorectal Fascia. Lymph Nodes: Mesorectal/superior rectal lymph nodes and/or tumor deposits: N0. No visible lymph nodes/deposits or only < 5 mm short axis. The previously described irregular sub-5 mm nodes are decreased in size and conspicuity (indexed on series 7). Extra-mesorectal lymph nodes: No suspicious extramesorectal lymph nodes. Other: No significant change in the thickened, heterogeneous endometrium measuring 14 mm in thickness (series 3, image 22). Trace pelvic free fluid is within physiologic limits. Increased sacral fatty marrow replacement compatible with postradiation change. Procedure Note Johann Chopra MD - 02/04/2025 CLINICAL INDICATION: Rectal Cancer RESTAGING. Pretreatment Tumor staging: T3a N+ Prior treatment: PLASTER TENDER completed 01/29 TECHNIQUE: Multiplanar, multisequence MR imaging of the pelvis was performed on a 3Tmagnet both before and after administration of 6.5 mL of intravenousGadavist contrast. COMPARISON: 08/06/2024: MR pelvis with and without contrast FINDINGS: Treated primary tumor characteristics: Significantly decreased size of thepolypoid lesion in the upper rectum with minimal residual disease. New C0qfghykxi hypointense T2 scarring along the left/posterior rectum at thesite of primary tumor. Subtle residual nodular focus of hazy A4vmbxasaesxdl signal along the mucosal/submucosal margin of the left upperrectum at the site of primary tumor (series 7, images 29/30 and series 8,images 43/45), with peripheral T2 dark scarring along the serosal margin.This focus demonstrates hyperenhancement similar to prior as well asrestricted diffusion (series 13, image 28 and series 10/11, soxijr19/30). An area of T2 intermediate signal along the anterior wall of the upperrectum (series 7, image 27) is favored to represent artifact an absence ofcorrelate on additional sequences, lack of restricted diffusion, andabsence of tumor involving the anterior wall on baseline staging MRI. Restricted diffusion in tumor or tumor bed is Present. Compared to priortreatment, DWI has significantly decreased in both intensity and extentcompared to prior. T2W: Distance of inferior margin of treated tumor to anal verge: 10.5 cm Distance of inferior margin of treated tumor to top of sphinctercomplex/anorectal junction: 8.2 cm Relationship of treated tumor to anterior peritoneal reflection: Above Current craniocaudal length of 0.9 cm (series 8, image 45), which hasdecreased compared to pretreatment craniocaudal length of 3 cm. Current maximal wall thickness of 0.9 cm (series 7, image 29), which hasdecreased compared to pretreatment maximal wall thickness of 1.6 cm. Invasion of anal sphincter complex: Not applicable due to tumorlocation. Extramural Vascular Invasion (EMVI): No. None evident in pretreatment. Mesorectal Fascia (MRF): Shortest distance of tumor/fibrosis to mesorectalfascia: 8 mm (series 7, image 30) Tumor deposit, LN, or EMVI do not threaten ( e 1 m and d 2 mm) or invade(< 1 mm) the Mesorectal Fascia. Lymph Nodes: Mesorectal/superior rectal lymph nodes and/or tumor deposits:N0. No visible lymph nodes/deposits or only < 5 mm short axis. Thepreviously described irregular sub-5 mm nodes are decreased in size andconspicuity (indexed on series 7). Extra-mesorectal lymph nodes: No suspicious extramesorectal lymph nodes. Other: No significant change in the thickened, heterogeneous endometriummeasuring 14 mm in thickness (series 3, image 22). Trace pelvic free fluidis within physiologic limits. Increased sacral fatty marrow replacementcompatible with postradiation change. IMPRESSION: Since 08/06/2024, post treatment primary tumor assessment reflectsincomplete response. Small focus of residual tumor. In comparison to the prior treatment there has been a significant loss intumor size. Mesorectal lymph nodes: No suspicious mesorectal nodes, resolved fromprior. Extramesorectal lymph nodes: No suspicious extramesorectal lymph nodes. CRITICAL RESULT: No. COMMUNICATION: Per this written report. By electronically signing this report, I, the attending physician, attestthat I have personally reviewed the images/data for the aboveexamination(s) and agree with the final edited report. Drafted by Jena Dia MD on 02/04/2025 11:29 AM Final report signed by Johann Chopra MD on 02/04/2025 12:47 PM us Manoj Fowler MD IMG MRI PROCEDURES Final Resul t documented in this encounter Visit Diagnoses Diagnosis Rectal cancer (CMS/HCC) Malignant neoplasm of rectum documented in this encounter Administered Medications Inactive Administered Medications - up to 3 most recent administrations Medication Order MAR Action Action Date Dose Rate Site gadobutrol (Gadavist) injection 6.5 mL 6.5 mL (0.1 mL/kg 65 kg), Intravenous, Once in imaging, 1 dose, Starting on 02/04/25 at 1005, Until 02/04/25 at 1035, Routine, Imaging Protocol Orders Given 02/04/2025 10:35 AM EDT 6.5 mL Port heparin flush (porcine) 100 UNIT/ML injection 500 Units 500 Units, Intracatheter, Once as needed, 1 dose, Starting on 02/04/25 at 0930, Until 02/04/25 at 1045, Routine, Intraprocedure, line care Given 02/04/2025 10:45 AM EDT 500 Units documented in this encounter Additional Health Concerns Assessment Noted Time A fall risk assessment has been complete d for the patient 02/04/2025 2:31 PM EDT A Body Mass Index follow-up plan has been documented for the patient 02/13/2025 10:32 PM EDT documented as of this encounter Care Teams Oxidation Engineer Relationship Specialty Start Date End Date Natalia Wayne APRN [address] [place] [address] PCP - General 12/10/24 documented as of this encounter
--- OUTSIDE RECORDS SUMMARY | 2025-02-04 09:12 | XMS_ITS | Encounter Summary ---
Author Organization [facility] Address [address] [place] [address] Care Team Providers Care Radio Assembler Name Role Phone Natalia Wayne YVONNE Primary Care Provider [phone] Reason for Referral * Imaging (Routine) - Closed Specialty Diagnoses / Procedures Referred By Lexii moody Referred To Contact Radiology Diagnoses Rectal cancer (CMS/HCC) Procedures MR Pelvis w and wo IV Contrast Manoj Fowler MD [address] [address] Phone: tel: fax: Referral ID Status Reason Start Date Expiration Date Visits Re quested Visits Authorized [id number] Closed 09/24/2024 03/26/2026 1 1 Reason for Visit * Imaging (Routine) - Closed Specialty Diagnoses / Procedures Referred By Leixi moody Referred To Contact Radiology Diagnoses Rectal cancer (CMS/HCC) Procedures MR Pelvis w and wo IV Contrast Manoj Fowler MD [address] [address] Phone: tel: fax: Referral ID Status Reason Start Date Expiration Date Visits Re quested Visits Authorized [id number] Closed 09/24/2024 03/26/2026 1 1 Encounter Details Date Type Department Care Team (Latest Contact Info) Description 02/04/2025 9:12 AM EDT - 02/04/2025 11:59 PM EDT Hospital Encounter [facility] [address] [place] [address] Rectal cancer ([facility]) Discharge Disposition: Home or Self Care Social [...] were you homeless or living in a intermediate (including now)? No 09/02/2024 Utilities Answer Date Recorded In the past 12 months has e [employer], gas, oil, or water [employer] threatened to shut off services in your [...] EDT Appointment [facility] [address] [place] [address] Manoj Fowler MD [address] [place] [address] 04/22/2025 12:40 PM EDT Appointment [facility] CT [address] [place] [address] 04/22/2025 3:00 PM EDT Office Visit [facility] [address] [place] [address] Joi Stewart MD 800 [facility] [address] [place] [address] 08/14/2025 10:00 AM EST Appointment [facility] Vascular Lab [address] [facility] 5th Floor [address] [place] [address] 08/14/2025 11:00 AM EST Office Visit [facility] [address] [facility] 5th Floor [address], [address] [place] [address] Hilary Cordova MD [address] [facility] [address] [place] [address] documented as of this encounter Procedures Procedure [...] Pretreatment Tumor staging: T3a N+ Prior treatment: VETERINARY MEDICAL OFFICER completed 01/29 TECHNIQUE: Multiplanar, multisequence MR imaging [...] Pretreatment Tumor staging: T3a N+ Prior treatment: VETERINARY MEDICAL OFFICER completed 01/29 TECHNIQUE: Multiplanar, multisequence MR imaging of the pelvis was performed on a 3Tmagnet both before and after administration of 6.5 mL of intravenousGadavist contrast. COMPARISON: 08/06/2024: MR pelvis with and without contrast FINDINGS: Treated primary tumor characteristics: Significantly decreased size of thepolypoid lesion in the upper rectum with minimal residual disease. New O3xrgqzoer hypointense T2 scarring along the left/posterior rectum at thesite of primary tumor. Subtle residual nodular focus of hazy J3eedcklrkyozs signal along the mucosal/submucosal margin of the left upperrectum at the site of primary tumor (series 7, images 29/30 and series 8,images 43/45), with peripheral T2 dark scarring along the serosal margin.This focus demonstrates hyperenhancement similar to prior as well asrestricted diffusion (series 13, image 28 and series 10/11, ctzagd44/30). An area of T2 intermediate signal along [...] documented as of this encounter Care Teams Radio Assembler Relationship Specialty Start Date End Date Natalia Wayne APRN [address] [place] [address] PCP - General 12/10/24 documented as of this encounter
--- OUTSIDE RECORDS SUMMARY | 2025-02-04 14:00 | XMS_ITS | Encounter Summary ---
Author Organization [facility] Address [address] [place] [address] Care Team Providers Care Heater Planer Operator Name Role Phone Natalia Wayne YVONNE Primary Care Provider [phone] Reason for Referral * Imaging (Routine) - Pending Review Specialty Diagnoses / Procedures Referred By Lexii moody Referred To Contact Gastroenterology Diagnoses Rectal cancer (CMS/HCC) Procedures Flexible Sigmoidoscopy Manoj Fowler MD [address] [facility] [address] [place] [address] Phone: tel: fax: Referral ID Status Reason Start Date Expiration Date Visits Requested Visits Authorized [id number] Pending Review Specialty Services Required 02/04/2025 08/06/2026 1 1 Reason for Visit * Reason Comments Follow-up Rectal Cancer Encounter Details Date Type Department Care Team (Latest Contact Info) Description 02/04/2025 2:00 PM EDT Office Visit [facility] Multidisciplinary Oncology Clinic [address] [place] [address] Manoj Fowler MD [id number] [place] [address] Rectal cancer (CMS/HCC) (Primary Dx) [...] any time in the past 12 m [facility], were you homeless or living in a chcf (including now)? No 09/02/2024 Utilities Answer Date Recorded In the past 12 months has th e [employer], gas, oil, or water company threatened to [...] Sreekanth Bowen - 02/04/2025 2:00 PM EDT [facility] Colon & Rectal Surgery 02/04/2025 Chief [...] synchronous cecal mass s/p LI for LBO. [facility] plan was CLARIBEL. She has recently completed radiation and 28 days of 5FU and anticipate 4m of FOLFOX to follow (anticipate w/ Billy Yip, but has been following w/ Terry at [facility]). She notes that she feels fatigued and [...] Pretreatment Tumor staging: T3a N+ Prior treatment: CHIROPRACTIC DOCTOR completed 01/29 TECHNIQUE: Multiplanar, multisequence MR imaging [...] saw and evaluated the patient with the medical/HEAD RIGGER/PA student. I discussed the case with the medical/HEAD RIGGER/PA student and agree with the findings and plan as documented. I personally performed the Examand Medical Decision Making. documented in this encounter Plan of Treatment Upcoming Encounters Date Type Department Care Team (Late st Contact Info) Description 04/16/2025 3:00 PM EDT Appointment [facility] [address] [place] [address] Manoj Fowler MD [address] [place] [address] 04/22/2025 12:40 PM EDT Appointment [facility] CT [address] [place] [address] 04/22/2025 3:00 PM EDT Office Visit [facility] Multidisciplinary Oncology Clinic [address] [place] [address] Joi Stewart MD [address] [place] [address] 08/14/2025 10:00 AM EST Appointment [facility] Vascular Lab [address] [facility] 5th Floor [address] [place] [address] 08/14/2025 11:00 AM EST Office Visit [facility] Comprehensive Vascular Clinic [address] [facility] 5th Floor [address] [place] [address] Hilary Cordova MD [address] [place] [address] Scheduled Orders Name Type Priority [...] documented as of this encounter Care Teams Heater Planer Operator Relationship Specialty Start Date End Date Natalia Wayne, ELECTRICAL TESTER BATTERY [address] [place] [address] PCP - General 12/10/24 documented as of this encounter
--- OUTSIDE RECORDS SUMMARY | 2025-02-04 14:00 | XMS_ITS | Encounter Summary ---
Author Organization [facility] Address [address] [place] [address] Care Team Providers Care Quantity Surveyor Name Role Phone Natalia Wayne YVONNE Primary Care Provider Reason for Referral * Imaging (Routine) - Pending Review Specialty Diagnoses / Procedures Referred By Lexii moody Referred To Contact Gastroenterology Diagnoses Rectal cancer (CMS/HCC) Procedures Flexible Sigmoidoscopy Manoj Fowler MD [address] [facility] [address] [place] [address] Phone: tel: fax: Referral ID Status Reason Start Date Expiration Date Visits Requested Visits Authorized [id number] Pending Review Specialty Services Required 02/04/2025 08/06/2026 1 1 Reason for Visit * Reason Comments Follow-up Rectal Cancer Encounter Details Date Type Department Care Team (Latest Contact Info) Description 02/04/2025 2:00 PM EDT Office Visit [facility] Multidisciplinary Oncology Clinic [address] [place] [address] Manoj Fowler MD [id number] [place] [address] Rectal cancer (CMS/HCC) (Primary Dx) [...] any time in the past 12 m [facility], were you homeless or living in a custodial (including now)? No 09/02/2024 Utilities Answer Date Recorded In the past 12 months has th e [employer], gas, oil, or water company threatened to [...] Sreekanth Bowen - 02/04/2025 2:00 PM EDT [facility] Colon & Rectal Surgery 02/04/2025 Chief [...] synchronous cecal mass s/p LI for LBO. [facility] plan was CLARIBEL. She has recently completed radiation and 28 days of 5FU and anticipate 4m of FOLFOX to follow (anticipate w/ Billy Yip, but has been following w/ Terry at [facility]). She notes that she feels fatigued and [...] Pretreatment Tumor staging: T3a N+ Prior treatment: LAND APPRAISER completed 01/29 TECHNIQUE: Multiplanar, multisequence MR imaging [...] saw and evaluated the patient with the medical/MANAGER INVESTMENT BANKING/PA student. I discussed the case with the medical/MANAGER INVESTMENT BANKING/PA student and agree with the findings and plan as documented. I personally performed the Examand Medical Decision Making. documented in this encounter Plan of Treatment Upcoming Encounters Date Type Department Care Team (Late st Contact Info) Description 04/16/2025 3:00 PM EDT Appointment [facility] [address] [place] [address] Manoj Fowler MD [address] [place] [address] 04/22/2025 12:40 PM EDT Appointment [facility] [address] [place] [address] 04/22/2025 3:00 PM EDT Office Visit [facility] Multidisciplinary Oncology Clinic [address] [place] [address] Joi Stewart MD [address] [place] [address] 08/14/2025 10:00 AM EST Appointment [facility] Vascular Lab [address] [facility] 5th Floor [address] [place] [address] 08/14/2025 11:00 AM EST Office Visit [facility] Comprehensive Vascular Clinic [address] [facility] 5th Floor [address] [place] [address] Hilary Cordova MD [address] [place] [address] Scheduled Orders Name Type Priority [...] documented as of this encounter Care Teams Quantity Surveyor Relationship Specialty Start Date End Date Natalia Wayne, BOOTMAKER [address] [place] [address] PCP - General 12/10/24 documented as of this encounter
--- OUTSIDE RECORDS SUMMARY | 2025-02-04 14:40 | XMS_ITS | Encounter Summary ---
Author Organization [facility] Address [address] [place] [address] Care Team Providers Care Manager Product Design Name Role Phone Natalia Wayne YVONNE Primary Care Provider [phone] Reason for Referral * Consultation (Routine) - Authorized Specialty Diagnoses / Procedures Referred By Lexii moody Referred To Contact Medical Oncology Diagnoses Rectal cancer (CMS/HCC) Joi Stewart MD 800 [facility] Tete Baker [address] [address] Phone: tel: fax: Referral ID Status Reason Start Date Expiration Date Visits Requested Visits Authorized [id number] Authorized Specialty Services Required 02/04/2025 08/06/2026 1 1 Scheduling Instructions Refer to Dr Yip in [place] Reason for Visit * Reason Comments Follow-up Rectal Cancer Encounter Details Date Type Department Care Team (Late st Contact Info) Description 02/04/2025 2:40 PM EDT Office Visit [facility] Multidisciplinary Oncology Clinic [address] [place] [phone] Joi Stewart MD 800 [facility] [place] [address] [address] Rectal cancer (CMS/HCC) (Primary Dx) [...] time in the past 12 m [facility], were you homeless or living in a longterm (including now)? No 09/02/2024 Utilities Answer Date [...] course XRT). Pt will receive XRT at [place] but 5FU civi through due to insurance restrictions (insurance would not approve 5FU civi to be given at [place], but we were able to get coverage for 5FU civi at ). After completion of chemoXRT, would need 4 months FOLFOX to complete total neoadjuvant therapy for clinical stage III rectal cancer prior to surgical resection--depending on tolerance. 12/25/24: first XRT in [place] 12/24/24: start concurrent 5FU infusion with XRT (5FU civi 225mg/m2 iv over 24 hrs daily on days 1-7for 5 weeks concurrent with XRT--long course XRT). Pt will receive XRT at [place] but 5FU civi through due to insurance restrictions (insurance would not approve 5FU civi to be given at [place], but we were able to get coverage [...] medical oncologist close to her home in [place]. D/w Dr. Yip by phone after appt. Follow up 04/16/25: flex sig sched with Dr. Manoj Fowler I will plan to see her back mid April 2025 after flex sig, assuming that she completes FOLFOX neoadjuvant chemotherapy with Dr. Yip in [place]. She would be due for repeat CT c/a/p with contrast for rectal cancer staging April 2025, can get those scans done here at or at [place]. Patient and family encouraged to call if any problems or concerns prior to next visit. Dr. Fowler appt early January Radiation oncologist Shayy Ovalle. Dr. Mariia Marks phone [phone] >30 minutes was spent on this encounter; including preparing to see the patient, which involved review/interpretation of diagnostics and reports; obtaining and/or reviewing separately obtained history; performing appropriate physical exam; ordering/scheduling medications, tests or procedures; communicating findings and counseling/educating the patient, family and/or caregiver; documentation inEMR; and care coordination. Joi Stewart MD Division of Medical Oncology [facility] Treatment Plans Name Type Plan Dates [...] refused to cover infusion 5FU) 10/21/24-10/24/24: hospitalized [place] with marked dehydration from severe diarrhea due [...] course XRT). Pt will receive XRT at [place] but 5FU civi through due to insurance restrictions (insurance would not approve 5FU civi to be given at [place], but we were able to get coverage [...] concurrent 5FU civi with XRT (XRT in [place]) on 01/28/25 She is here for follow [...] Department Care Team (Late Contact Info) Description 04/16/2025 3:00 PM EDT Appointment [facility] [address] [place] [address] Manoj Fowler MD [address] [facility] [address] [place] [phone] 04/22/2025 12:40 PM EDT Appointment [facility] [address] [place] [address] 04/22/2025 3:00 PM EDT Office Visit [facility] [address] [place] [address] Joi Stewart MD 800 [facility] Tete Baker [facility] [address] [place] [address] 08/14/2025 10:00 AM EST Appointment [facility] [address] [facility] [address] [place] [address] 08/14/2025 11:00 AM EST Office Visit [facility] [address] [facility] 5th Floor [address] [place] [address] Hilary Cordova MD [address] [facility] [address] [place] [address] Scheduled Orders Name Type Priority Associated Diagnoses [...] documented as of this encounter Care Teams Manager Product Design Relationship Specialty Start Date End Date Natalia Wayne APRN [address] [place] [address] PCP - General 12/10/24 documented as of this encounter
--- OUTSIDE RECORDS SUMMARY | 2025-02-04 14:40 | XMS_ITS | Encounter Summary ---
Author Organization [facility] Address [address] [place] [address] Care Team Providers Care Supervisor Advertising Dispatch Clerks Name Role Phone Natalia Wayne YVONNE Primary Care Provider [phone] Reason for Referral * Consultation (Routine) - Authorized Specialty Diagnoses / Procedures Referred By Lexii moody Referred To Contact Medical Oncology Diagnoses Rectal cancer (CMS/HCC) Joi Stewart MD 800 [facility] Tete Baker [address] [address] Phone: tel: fax: Referral ID Status Reason Start Date Expiration Date Visits Requested Visits Authorized [id number] Authorized Specialty Services Required 02/04/2025 08/06/2026 1 1 Scheduling Instructions Refer to Dr Yip in [place] Reason for Visit * Reason Comments Follow-up Rectal Cancer Encounter Details Date Type Department Care Team (Late st Contact Info) Description 02/04/2025 2:40 PM EDT Office Visit [facility] Multidisciplinary Oncology Clinic [address] [place] [address] Joi Stewart MD 800 [facility] Samuel [address] [address] Rectal cancer (CMS/HCC) (Primary Dx) [...] were you homeless or living in a correction (including now)? No 09/02/2024 Utilities Answer Date [...] course XRT). Pt will receive XRT at [place] but 5FU civi through due to insurance restrictions (insurance would not approve 5FU civi to be given at [place], but we were able to get coverage for 5FU civi at ). After completion of chemoXRT, would need 4 months FOLFOX to complete total neoadjuvant therapy for clinical stage III rectal cancer prior to surgical resection--depending on tolerance. 12/25/24: first XRT in [place] 12/24/24: start concurrent 5FU infusion with XRT (5FU civi 225mg/m2 iv over 24 hrs daily on days 1-7for 5 weeks concurrent with XRT--long course XRT). Pt will receive XRT at [place] but 5FU civi through due to insurance restrictions (insurance would not approve 5FU civi to be given at [place], but we were able to get coverage [...] medical oncologist close to her home in [place]. D/w Dr. Yip by phone after appt. Follow up 04/16/25: flex sig sched with Dr. Manoj Fowler I will plan to see her back mid April 2025 after flex sig, assuming that she completes FOLFOX neoadjuvant chemotherapy with Dr. Yip in [place]. She would be due for repeat CT c/a/p with contrast for rectal cancer staging April 2025, can get those scans done here at or at [place]. Patient and family encouraged to call if any problems or concerns prior to next visit. Dr. Fowler appt early January Radiation oncologist Shayy Ovalle. Dr. Mariia Marks phone [phone] >30 minutes was spent on this encounter; including preparing to see the patient, which involved review/interpretation of diagnostics and reports; obtaining and/or reviewing separately obtained history; performing appropriate physical exam; ordering/scheduling medications, tests or procedures; communicating findings and counseling/educating the patient, family and/or caregiver; documentation inEMR; and care coordination. Joi Stewart MD Division of Medical Oncology [facility] Treatment Plans Name Type Plan [...] refused to cover infusion 5FU) 10/21/24-10/24/24: hospitalized [place] with marked dehydration from severe diarrhea due [...] course XRT). Pt will receive XRT at [place] but 5FU civi through due to insurance restrictions (insurance would not approve 5FU civi to be given at [place], but we were able to get coverage [...] concurrent 5FU civi with XRT (XRT in [place]) on 01/28/25 She is here for follow [...] PM EDT Appointment [facility] [address] [place] [address] Manoj Fowler MD [address] [facility] [address] [place] [address] 04/22/2025 12:40 PM EDT Appointment [facility] [address] [place] [address] 04/22/2025 3:00 PM EDT Office Visit [facility] [address] [place] [address] Joi Stewart MD 800 [facility] Tete Baker [facility] [address] [place] [address] 08/14/2025 10:00 AM EST Appointment [facility] [address] [facility] 5th Floor [address], [address] [place] [address] 08/14/2025 11:00 AM EST Office Visit [facility] Comprehensive Vascular Clinic [address] [facility] 5th Floor [address], [address] [place] [address] Hilary Cordova MD [address] [facility] [address] [place] [address] Scheduled Orders Name Type Priority Associated Diagnoses [...] documented as of this encounter Care Teams Supervisor Advertising Dispatch Clerks Relationship Specialty Start Date End Date Natalia Wayne APRN [address] [place] [address] PCP - General 12/10/24 documented as of this encounter
[2025-03-12] VITALS (17 sets, daily range): BP systolic 150–175; BP diastolic 60–71; PULSE 54–70; RESP 18; TEMP 36.7; O2SAT 97; BMI 22.4
--- OUTSIDE RECORDS SUMMARY | 2025-03-12 08:27 | XMS_ITS ---
Author Organization [facility] Address [address] [place] [address] Care Team Providers Care Commissary Representative Name Role Phone Natalia Wayne APRN Primary Care Provider Active Problems Problem Noted Date Diagnosed Date Chemotherapy induced diarrhea 12/16/2024 Hypertension 09/02/2024 Rectal cancer 08/13/2024 Cancer Staging:Clinical stage from 08/06/2024:Stage IIIB(cT3, cN1, cM0) - Signed by Manoj Fowler MD on 08/13/2024 Mass of cecum 08/13/2024 Superior mesenteric artery stenosis 08/08/2024 Tobacco use disorder 06/11/2024 Second hand smoke exposure 06/11/2024 Basal cell carcinoma Overview (12/10/2024): Excised 2003 Thyroid disorder Current Treatment and Therapy Plans (HEM/ONC) Scheduled IV Fluids with and without Electrolytes* Plan Start Date: 12/24/2024 Plan Provider:Joi Stewart MD Linked Problems Rectal cancer (CMS/HCC) Treatment Medications No medications scheduled. Past Treatment and Therapy Plans Oncology Treatment Plan Name Start Date Discontinue Date Treatment Medications Discontinue Reason Plan Provider Cycles Protracted Fluorouracil Every 7 Days x 3 + XRT 12/25/19 25 02/04/2025 5-FU (Adrucil) infusion - for home use ([facility] supplied) CADD 100ML Therapy Complete Joi Stewart MD 1 of 1 cycle started MitoMYcin + Fluorouracil Every 28 Days x 2 + XRT 12/17/19 25 12/13/2024 5-FU CHEMO INFUSION ([facility] SUPPLIED) CADD ORDERABLEmitoMYcin (Mutamycin) Other (See Comments) Joi Stewart MD Treatment not started Resolved Problems Problem Noted Date Diagnosed Date Resolved Date Large bowel obstruction 08/31/2024 120 01/2024
--- OUTSIDE RECORDS SUMMARY | 2025-03-12 08:28 | XMS_ITS | Encounter Summary ---
Author Organization [facility] Address [address] [place] [address] Care Team Providers Care Php Website Developer Name Role Phone Pcp, No Primary Care Provider Natalia Hector APRN Primary Care Provider [phone] Encounter Details Date Type Department Care Team (Late st Contact Info) Description 11/14/2024 Orders Only External Location [address] [place] [address] Provider, External Social History Tobacco Use Types Packs/Day Years Used Date Smoking Tobacco: Every Day Cigarettes 0.5 50.4 Started: 1975 Smokeless Tobacco: Never Alcohol Use Standard Drinks/Week [...] by your partner or ex-partner? No 09/02/2024 Hunger Vital Sign Answer Date Recorded Within [...] any time in the past 12 m onths, were you homeless or living in a [...] on file documented as of this encounter Plan of Treatment Upcoming Encounters Date Type Department Care Team (Late st Contact Info) Description 04/16/2025 3:00 PM EDT Appointment [facility] [address] [place] [address] Manoj Fowler MD [address] [facility] [address] [place] [address] 04/22/2025 12:40 PM EDT Appointment [facility] [address] [place] [address] 04/22/2025 3:00 PM EDT Office Visit [facility] [address] [place] [phone] Joi Stewart MD 800 [facility] Tete Baker [facility] [address] [place] [address] 08/14/2025 10:00 AM EST Appointment [facility] Vascular Lab [address] [facility] 5th Floor [address], [address] [place] [address] 08/14/2025 11:00 AM EST Office Visit [facility]ascular Clinic [address] [facility] 5th Floor [address], [address] [place] [address] Hilary Cordova MD [address] [facility] [address] [place] [address] documented as of this encounter Procedures Procedure Name Priority Date/Time Associated Diagnosis Comments MR OUTSIDE IMAGES 11/14/2024 7:53 AM EST documented in this encounter Results * MR transfer of outside films (11/14/2024 7:53 AM EST) Anatomical Region Laterality Modality Magnetic Resonan ce 11/14/2024 7:53 AM EST us External Provider IMG MRI PROCEDURES Final Resul t documented in this encounter Visit Diagnoses Not on filedocumented in this encounter Additional Health Concerns Assessment Noted Time A fall risk assessment has been complete d for the patient 08/13/2024 3:00 PM EST A Body Mass Index follow-up plan has been documented for the patient 09/24/2024 8:26 AM EST documented as of this encounter Care Teams Php Website Developer Relationship Specialty Start Date End Date Pcp, [place] [address] PCP - General Family Medicine 06/11/24 12/09/24 Natalia Wayne APRN [address] [place] [address] PCP - General 12/10/24 documented as of this encounter
--- OUTSIDE RECORDS SUMMARY | 2025-03-12 08:28 | XMS_ITS | Encounter Summary ---
Author Organization [facility] Address [address] [place] [address] Care Team Providers Care Muck Miner Blasting Name Role Phone Natalia Wayne YVONNE Primary Care Provider [phone] Encounter Details Date Type Department Care Team (Latest Contact Info) Description 01/28/2025 Travel Social History Tobacco Use Types Packs/Day Years [...] any time in the past 12 m [facility], were you homeless or [...] PM EDT Appointment [facility] [address] [place] [phone] Manoj Fowler MD [address] [facility] [address] [place] [address] 04/22/2025 12:40 PM EDT Appointment [facility] [address] [place] [address] 04/22/2025 3:00 PM EDT Office Visit [facility] [address] [place] [phone] Joi Stewart MD 800 [facility] Tete Baker [address] [place] [address] 08/14/2025 10:00 AM EST Appointment [facility] Vascular Lab [address] [facility] 5th Floor [address], [address] [place] [address] 08/14/2025 11:00 AM EST Office Visit [facility] Comprehensive Vascular Clinic [address] [facility] 5th Floor [address], [address] [place] [address] Hilary Cordova MD [address] [facility] [address] [place] [address] documented as of this encounter Visit Diagnoses Not on filedocumented in this encounter Additional Health Concerns Assessment Noted Time A fall risk assessment has been complete d for the patient 01/28/2025 2:35 PM EDT A Body Mass Index follow-up plan has been documented for the patient 01/21/2025 4:15 PM EDT documented as of this encounter Care Teams Muck Miner Blasting Relationship Specialty Start Date End Date Natalia Wayne, YVONNE [address] [place] [address] PCP - General 12/10/24 documented as of this encounter
--- OUTSIDE RECORDS SUMMARY | 2025-03-12 08:28 | XMS_ITS | Encounter Summary ---
Author Organization [facility] Address [address] [place] [address] Care Team Providers Care Smeller Name Role Phone Natalia Wayne YVONNE Primary Care Provider [phone] Encounter Details Date Type Department Care Team (Latest Contact Info) Description 01/14/2025 Travel Social History Tobacco Use Types Packs/Day [...] any time in the past 12 m [facility], were you homeless or living in a detention (including now)? No 09/02/2024 Utilities Answer Date [...] PM EDT Appointment [facility] [address] [place] [phone] Maonj Fowler MD [address] [facility] [address] [place] [address] 04/22/2025 12:40 PM EDT Appointment [facility] [address] [place] [address] 04/22/2025 3:00 PM EDT Office Visit [facility] [address] [place] [phone] Joi Stewart MD 800 [facility] T[address] Baker [address] [place] [address] 08/14/2025 10:00 AM EST Appointment [facility] Lab [address] [facility] 5th Floor [address] [place] [address] 08/14/2025 11:00 AM EST Office Visit [facility] Clinic [address] [facility] 5th Floor [address] [place] [address] Hilary Cordova MD [address] [facility] [address] [place] [address] documented as of this encounter Visit Diagnoses Not on filedocumented in this encounter Additional Health Concerns Assessment Noted Time A fall risk assessment has been complete d for the patient 01/14/2025 1:42 PM EDT A Body Mass Index follow-up plan has been documented for the patient 01/14/2025 3:56 PM EDT documented as of this encounter Care Teams Smeller Relationship Specialty Start Date End Date Natalia aWyne, YVONNE [address] [place] [address] PCP - General 12/10/24 documented as of this encounter
--- OUTSIDE RECORDS SUMMARY | 2025-03-12 08:28 | XMS_ITS | Encounter Summary ---
Author Organization [facility] Address [address] [place] [address] Care Team Providers Care Hospice Manager Name Role Phone Natalia Wayne YVONNE Primary Care Provider [phone] Encounter Details Date Type Department Care Team (Latest Contact Info) Description 02/04/2025 Travel Social History Tobacco Use Types Packs/Day [...] any time in the past 12 m [facility], were you homeless or living in a alf (including now)? No 09/02/2024 Utilities Answer Date [...] PM EDT Appointment [facility] [address] [place] [phone] Manoj Fowler MD [address] [facility] [address] [place] [address] 04/22/2025 12:40 PM EDT Appointment [facility] [address] [place] [address] 04/22/2025 3:00 PM EDT Office Visit [facility] [address] [place] [phone] Joi Stewart MD 800 [facility] [address] Baker [address] [place] [address] 08/14/2025 10:00 AM EST Appointment [facility] Vascular Lab [address] [facility] 5th Floor [address], [address] [place] [address] 08/14/2025 11:00 AM EST Office Visit [facility] Comprehensive Vascular Clinic [address] [facility] 5th Floor [address], [address] [place] [address] Hilary Cordova MD [address] [facility] [address] [place] [address] documented as of this encounter Visit Diagnoses Not on filedocumented in this encounter Additional Health Concerns Assessment Noted Time A fall risk assessment has been complete d for the patient 02/04/2025 2:31 PM EDT A Body Mass Index follow-up plan has been documented for the patient 02/13/2025 10:32 PM EDT documented as of this encounter Care Teams Hospice Manager Relationship Specialty Start Date End Date Natalia Wayne, YVONNE [address] [place] [address] PCP - General 12/10/24 documented as of this encounter
--- OUTSIDE RECORDS SUMMARY | 2025-03-12 08:28 | XMS_ITS | Clinical Summary ---
Author Organization [facility] Address [address] [place] [address] Care Team Providers Care Physician Industrial Name Role Phone Natalia Wayne YVONNE Primary Care Provider [phone] Allergies No known active allergies Medications rosuvastatin (Crestor) 20 MG tablet Take 1 tablet (20 mg) by mouth every night. 30 tablet 5 4 Active acetaminophen (Tylenol) 500 MG tablet Take 1 tablet (500 mg) by mouth every 6 (six) hours. 100 tablet 4 Active ondansetron ODT (Zofran-ODT) 4 MG disintegrating tablet Take 1 tablet (4 mg) by mouth every 6 (six) hours if needed for nausea or vomiting. 20 tablet 4 Active rivaroxaban (Xarelto) 10 MG tablet Take 1 tablet (10 mg) by mouth 1 (one) time each day for 25 days. 25 tablet 4 Active aspirin 81 MG EC tablet Take 1 tablet (81 mg) by mouth daily. Active lisinopril 10 MG tablet Take 1 tablet (10 mg) by mouth Daily. 5 Active Calcium Polycarbophil (Fiber) 625 MG tablet Take 2 tablets by mouth in the morning and 2 tablets before bedtime. Active loperamide (Imodium A-D) 2 MG tablet Take 1 tablet by mouth 4 times a day as needed for diarrhea. 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 Hypertension 09/02/2024 Rectal cancer 08/13/2024 Cancer Staging:Clinical stage from 08/06/2024:Stage IIIB(cT3, cN1, cM0) - Signed by Manoj Fowler MD on 08/13/2024 Mass of cecum 08/13/2024 Superior mesenteric artery stenosis 08/08/2024 Tobacco use disorder 06/11/2024 Second hand smoke exposure 06/11/2024 Basal cell carcinoma Overview (12/10/2024): Excised 2003 Thyroid disorder Resolved Problems Problem Noted Date Diagnosed Date Resolved Date Large bowel obstruction 08/31/20240 01/2024 Encounters Date Type Department Care Team Description 02/13/2025 Orders Only [facility] [address] [place] [address] Cecilia Walters, RN Rectal cancer (CMS/HCC) (Primary Dx) 02/04/2025 2:40 PM EDT Office Visit [facility] [address] [place] [address] Joi Stewart MD Rectal cancer (CMS/HCC) (Primary Dx) 02/04/2025 2:00 PM EDT Office Visit [facility] Mult[facility]isciplinary Oncology Clinic [address] [place] [address] Manoj Fowler MD Rectal cancer (CMS/HCC) (Primary Dx) 02/04/2025 9:12 AM EDT - 02/04/2025 11:59 PM EDT Hospital Encounter [facility] [address] [place] [address] Rectal cancer (CMS/HCC) Discharge Disposition: Home or Self Care 02/04/2025 Travel 01/28/2025 2:00 PM EDT - 01/28/2025 11:59 PM EDT Hospital Encounter [facility] [address] [place] [address] Rectal cancer (CMS/HCC) (Primary Dx) Discharge Disposition: Home or Self Care 01/28/2025 Travel 01/21/2025 1:24 PM EDT - 01/21/2025 11:59 PM EDT Hospital Encounter [facility] [address] [place] [address] Rectal cancer (CMS/HCC) (Primary Dx) Discharge Disposition: Home or Self Care 01/21/2025 Travel 01/14/2025 1:30 PM EDT - 01/14/2025 11:59 PM EDT Hospital Encounter [facility] [address] [place] [address] Rectal cancer (CMS/HCC) (Primary Dx) Discharge Disposition: Home or Self Care 01/14/2025 Travel 01/08/2025 Clinical Support [facility] H[facility]ology[facility]BMT [facility] Cellular Therapy [facility] [address] [facility] [place] [address] Sree Guerrero, PharmD Rectal cancer (CMS/HCC) (Primary Dx) 01/07/2025 12:10 PM EDT - 01/07/2025 11:59 PM EDT Hospital Encounter [facility] [address] [place] [address] Rectal cancer (CMS/HCC) (Primary Dx) Discharge Disposition: Home or Self Care 01/07/2025 10:30 AM EDT - 01/07/2025 12:09 PM EDT Hospital Encounter [facility] [address] [place] [address] Rectal cancer (CMS/HCC) (Primary Dx) Discharge Disposition: Home or Self Care 01/07/2025 9:20 AM EDT Office Visit [facility] [address] [place] [address] Joi Stewart MD Rectal cancer (CMS/HCC) (Primary Dx) 01/07/2025 9:10 AM EDT Clinical Support [facility] [address] [place] [address] Rectal cancer (CMS/HCC) 01/07/2025 Travel 12/31/2024 1:19 PM EDT - 12/31/2024 11:59 PM EDT Hospital Encounter [facility] [address] [place] [address] Rectal cancer (CMS/HCC) (Primary Dx) Discharge Disposition: Home or Self Care 12/31/2024 Travel 12/25/2024 Telephone [facility] [address] [place] [phone] Manoj Fowler MD Appointment 12/24/2024 10:57 AM EDT - 12/24/2024 11:59 PM EDT Hospital Encounter [facility] [address] [place] [address] Discharge Disposition: Home or Self Care 12/24/2024 10:24 AM EDT - 12/24/2024 10:56 AM EDT Hospital Encounter [facility] [address] [place] [address] Rectal cancer (CMS/HCC) (Primary Dx) Discharge Disposition: Home or Self Care 12/24/2024 9:20 AM EDT Office Visit [facility] [address] [place] [address] Joi Stewart MD Rectal cancer (CMS/HCC) 12/24/2024 Travel 12/16/2024 Telephone [facility] [address] [place] [address] Joi Stewart MD 12/13/2024 Orders Only [facility] [address] [facility] [place] [address] Joi Stewart MD Rectal cancer (CMS/HCC) (Primary Dx) 12/11/2024 Telephone [facility] [address] [place] [address] Jennifer Springer 12/10/2024 11:20 AM EDT Office Visit [facility] Multidisciplinary Oncology Clinic [address] [place] [address] Joi Stewart MD Rectal cancer (CMS/HCC) (Primary Dx); Chemotherapy induced diarrhea 12/10/2024 Travel from Last 3 Months Family History Medical History Relation Name Comments Diabetes Other Heart Problem Other Hypercholesterolemia Other Hypertension Other Relation Name Status Comments Other Social History Tobacco Use Types Packs/Day Years Used Date Smoking Tobacco: Every Day Cigarettes 0.5 50.4 Started: 1975 Passive Smoke Exposure: Past Smokeless Tobacco: Never [...] any time in the past [address] [facility] [address], were you homeless or living in a [...] on file Sexual Orientation Not on file Last Filed Vital Signs Vital Sign Reading Time Taken Comments Blood Pressure 127/75 02/04/2025 2:30 PM EDT Pulse 100 02/04/2025 2:30 PM EDT Temperature 36.6 C (97.8 F) 02/04/2025 2:30 PM EDT Respiratory Rate 17 01/28/2025 2:38 PM EDT Oxygen Saturation 97% 02/04/2025 2:30 PM EDT Inhaled Oxygen Concentration - - Weight 62.6 kg (138 lb) 02/04/2025 2:30 PM EDT Height 170.2 cm (5' 7 ) 02/04/2025 2:30 PM EDT Body Mass Index 21.61 02/04/2025 2:30 PM EDT Plan of Treatment Upcoming Encounters Date Type Department Care Team (Late st Contact Info) Description 04/16/2025 3:00 PM EDT Appointment [facility] [address] [place] [address] Manoj Fowler MD [address] [facility] [address] [place] [address] 04/22/2025 12:40 PM EDT Appointment [facility] [address] [facility] [address] [place] [address] 04/22/2025 3:00 PM EDT Office Visit [facility] [address] [place] [address] Joi Stewart MD [address] [facility] Tete Baker [facility] [address] [place] [address] 08/14/2025 10:00 AM EST Appointment [facility] Vascular Lab [address] [place] [address] 08/14/2025 11:00 AM EST Office Visit [facility] [address] [place] [address] Hilary Cordova MD [address] [facility] [address] [place] [address] Health Maintenance Due Date Last Done Comments [facility]-Bone Density Scan 1950 [facility]-Medicare Annual Wellness (AWV) 1950 [facility]-Infant/Child/Adol SDOH Screenings 1950 [facility]-DTaP,Tdap,and Td Vaccine s (1 - Tdap) 1968 [facility]-Pneumococcal Vaccine: 50 + Years (1 of 2 - PCV) 1968 [facility]-Zoster Vaccines (1 of 2) 1968 CT Colonography 1994 FIT-DNA 1994 FIT 1994 FOBT 1994 Sigmoidoscopy 1994 [id number] Vaccine (2 - Ja nssen risk series) 01/07/2021 12/10/2020 [facility]-RSV Vaccine: 60+ Years o r (1 - 1-dose 75+ series) 2024 [facility]- SDOH Screenings 03/03/2025 [facility]-Adult SDOH Screenings 03/03/2025 09/02/2024 [facility]-Influenza Vaccine (Seaso n Ended) 2025 [facility]-Lung Cancer Screening 08/06/2025 08/06/2024 [facility]-Depression Screening 01/07/2026 01/07/2025 Colonoscopy 07/22/2034 07/22/2024 [facility]-Colorectal Cancer Screening 07/22/2034 [facility]-Hepatitis C Screening Completed 08/31/2024 HPV Vaccines Aged Out No longer eligi ble based on patient's age to complete this topic [facility]-HIB Vaccines Aged Out No longer e ligible based on patient's age to complete this topic [facility]-Hepatitis A Vaccines Aged Out No longer eligible based on patient's age to complete this topic [facility]-IPV Vaccines Aged Out No longer e ligible based on patient's age to complete this topic [facility]-Rotavirus Vaccines Aged Out No lo nger eligible based on patient's age to complete this topic Procedures Procedure Name Priority Date/Time Associated Diagnosis Comments MR PELVIS W AND WO IV CONTRAST Routine 02/04/2025 10:40 AM EDT Rectal cancer (CMS/HCC) CBC WITH AUTO DIFFERENTIAL Routine 01/21/2025 2:16 PM EDT Rectal cancer (CMS/HCC) COMPREHENSIVE METABOLIC PANEL, PLASMA Routine 01/21/2025 2:16 PM EDT Rectal cancer (CMS/HCC) COMPREHENSIVE METABOLIC PANEL, PLASMA Routine 01/14/2025 1:57 PM EDT Rectal cancer (CMS/HCC) CBC WITH AUTO DIFFERENTIAL Routine 01/14/2025 1:57 PM EDT Rectal cancer (CMS/HCC) COMPREHENSIVE METABOLIC PANEL, PLASMA Routine 01/07/2025 10:13 AM EDT Rectal cancer (CMS/HCC) CBC WITH AUTO DIFFERENTIAL Routine 01/07/2025 10:13 AM EDT Rectal cancer (CMS/HCC) COMPREHENSIVE METABOLIC PANEL, PLASMA Routine 12/31/2024 1:09 PM EDT Rectal cancer (CMS/HCC) CBC WITH AUTO DIFFERENTIAL Routine 12/31/2024 1:09 PM EDT Rectal cancer (CMS/HCC) CEA, SERUM Routine 12/24/2024 9:18 AM EDT Rectal cancer (CMS/HCC) CBC WITH AUTO DIFFERENTIAL Routine 12/24/2024 9:18 AM EDT Rectal cancer (CMS/HCC) COMPREHENSIVE METABOLIC PANEL, PLASMA Routine 12/24/2024 9:18 AM EDT Rectal cancer (CMS/HCC) HEPATITIS C ANTIBODY - ED W/REFLEX TO HCV QUANT PCR STAT 08/31/2024 5:[address] CHEST W IV CONTRAST Routine 1:32 PM EST Rectal cancer (CMS/HCC) Colonic mass COLONOSCOPY Routine 07/22/2024 9:29 AM EDT Colonic mass from Last 3 Months or Most Recently Relevant to Health Maintenance Results * MR Pelvis w and wo [...] Pretreatment Tumor staging: T3a N+ Prior treatment: ENDOSCOPY SPECIALTY TECHNICIAN completed 01/29 TECHNIQUE: Multiplanar, multisequence MR [...] Pretreatment Tumor staging: T3a N+ Prior treatment: ENDOSCOPY SPECIALTY TECHNICIAN completed 01/29 TECHNIQUE: Multiplanar, multisequence MR imaging of the pelvis was performed on a 3Tmagnet both before and after administration of 6.5 mL of intravenousGadavist contrast. COMPARISON: 08/06/2024: MR pelvis with and without contrast FINDINGS: Treated primary tumor characteristics: Significantly decreased size of thepolypoid lesion in the upper rectum with minimal residual disease. New [id number] hypointense T2 scarring along the left/posterior rectum at thesite of primary tumor. Subtle residual nodular focus of hazy [id number] signal along the mucosal/submucosal margin of the left upperrectum at the site of primary tumor (series 7, images 29/30 and series 8,images 43/45), with peripheral T2 dark scarring along the serosal margin.This focus demonstrates hyperenhancement similar to prior as well asrestricted diffusion (series 13, image 28 and series 10/11, ijoecy34/30). An area of T2 intermediate signal along [...] MD IMG MRI PROCEDURES Final Resul t * (ABNORMAL) CBC and differential (01/21/2025 2:16 PM EDT) Only the most recent of5 resultswithin the time period is included. WBC Count 7.11 3.70 - 10.30 10*3/uL [...] ult [facility] [address] [place] [address] * (ABNORMAL) Comprehensive metabolic panel (01/21/2025 2:16 PM EDT) Only the most recent of5 resultswithin the time period is included. Glucose, Plasma 120(H) 74 - 99 mg/dL [...] ult [facility] [address] [place] [address] * CEA (12/24/2024 9:18 AM EDT) CEA, Serum <1.8 <4.0 ng/mL 12/24/2024 10:41 AM EDT [facility] Blood Venous blood specimen / Unknown Venipuncture / Unknown 12/24/2024 9:18 AM EDT 12/24/2024 10:05 AM EDT Narrative [facility] - 12/24/2024 10:41 AM EDT Normal range for smokers: < 5.5 ng/ml Normal range for non-smokers: <=4.0 ng/ml Performed by Karin electrochemiluminescent immunoassay. Results obtained with different test methods or kits cannot be used interchangeably. us Joi Stewart MD LAB BLOOD ORDERABLES Final Res ult Performing Organization Address City/[facility]/[place] [address] * Hepatitis C Antibody - ED (08/31/2024 5:22 PM EST) Hepatitis C Antibody Negative Negative 08/31/2024 6:21 PM EST [facility] Blood Venous blood specimen / Unknown Venipuncture / Unknown 08/31/2024 5:22 PM EST 08/31/2024 5:40 PM EST Meño Cano MD LAB BLOOD ORDERABLES Final Re sult Performing Organization Address [facility] [place] [address] * CT Chest w IV Contrast (08/06/2024 1:32 PM EST) Anatomical Region Laterality Modality Chest Computed Tomogra phy Impressions 08/06/2024 3:05 PM EST No evidence of metastatic disease in the chest. CRITICAL RESULT: No. COMMUNICATION: Per this written report. Drafted by Fidel Aj MD on 08/06/2024 3:00 PM Final report signed by Fidel Aj MD on 08/06/2024 3:05 PM Narrative 08/06/2024 3:05 PM EST CLINICAL INDICATION: Colorectal cancer, staging TECHNIQUE: Multiple CT helical images were obtained from thoracic inlet through upper abdomen with administration of IV contrast. 100 mL of Omnipaque-300 were administered intravenously. Total DLP (Dose-Length Product): 89.11 mGy.cm. Please note: The reported value represents the total of one or more individual components during the CT acquisition on this date and at this time, and as such, the same value may appear in more than one CT report depending on the interpreting/reporting physicians. COMPARISON: None. FINDINGS: Mediastinum and Pleura: Multiple small thyroid nodules, likely secondary to multinodular goiter. No significant mediastinal or hilar adenopathy. No pleural or pericardial effusions. Moderately severe coronary artery calcifications. Lipomatous hypertrophy of interatrial septum, with some compression of the SVC just above the superior cavoatrial junction, but no evidence that this is hemodynamically significant. Lungs: No airspace opacities or suspicious pulmonary nodules. Upper Abdomen: Please see separate report for findings of the concurrently performed abdominal MRI. Musculoskeletal: No suspicious lytic or sclerotic lesion. Procedure Note Fidel Aj MD - 08/06/2024 CLINICAL INDICATION: Colorectal cancer, staging TECHNIQUE: Multiple CT helical images were obtained from thoracic inlet through upperabdomen with administration of IV contrast. 100 mL of Omnipaque-300 wereadministered intravenously. Total DLP (Dose-Length Product): 89.11 mGy.cm. Please note: The reportedvalue represents the total of one or more individual components during theCT acquisition on this date and at this time, and as such, the same valuemay appear in more than one CT report depending on theinterpreting/reporting physicians. COMPARISON: None. FINDINGS: Mediastinum and Pleura: Multiple small thyroid nodules, likely secondaryto multinodular goiter. No significant mediastinal or hilar adenopathy. Nopleural or pericardial effusions. Moderately severe coronary arterycalcifications. Lipomatous hypertrophy of interatrial septum, with somecompression of the SVC just above the superior cavoatrial junction, but noevidence that this is hemodynamically significant. Lungs: No airspace opacities or suspicious pulmonary nodules. Upper Abdomen: Please see separate report for findings of the concurrentlyperformed abdominal MRI. Musculoskeletal: No suspicious lytic or sclerotic lesion. IMPRESSION: No evidence of metastatic disease in the chest. CRITICAL RESULT: No. COMMUNICATION: Per this written report. Drafted by Fidel Aj MD on 08/06/2024 3:00 PM Final report signed by Fidel Aj MD on 08/06/2024 3:05 PM Manoj Fowler MD IMG CT PROCEDURES Final Result * Colonoscopy (07/22/2024 9:29 AM EDT) Anatomical Region Laterality Modality Endoscopy Narrative 07/22/2024 9:33 AM EDT Table formatting from the original result was not included. Impression: Ten or more pancolonic polyps; performed cold forceps biopsy Single malignant-appearing and multilobular mass (not traversable) in the cecum; bleeding occurred after intervention; performed cold forceps biopsy Single malignant-appearing mass in the rectum; performed cold forceps biopsy Colonoscopy scheduled for follow-up of abnormal CT imaging for abdominal pain. Right colon mass identified on CT imaging. Today, colonoscopy demonstrates multiple polyps throughout the entire colon. This includes a large cecal mass. Multiple biopsies obtained. Associated with additional polyps in this area of the right colon. More distally, a rectal mass was identified. Multiple biopsies obtained. Intervening colon with multiple polyps. Multiple number. Likely will need total proctocolectomy. Recommendations Await pathology results Indication Order Indication: Colonic mass Medications See anesthesia record for anesthesia administered medications. Staff Staff Role Robert Bueno Endo Patternmaker Apprentice Metal Shruti Gutierrez CRNA CRNA Gantt, Randolph Endo Patternmaker Apprentice Metal Richard Borja MD Proceduralist Marcelina Arana Nurse Avi Murrell MD Anesthesiologist dillan donaldson rn Other - Providing Care tiny tomas Other - Other (see comments) Preprocedure A history and physical has been performed, and patient medication allergies have been reviewed. The patient's tolerance of previous anesthesia has been reviewed. The risks and benefits of the procedure and the sedation options and risks were discussed with the patient. All questions were answered and informed consent obtained. Details of the Procedure The patient underwent monitored anesthesia care, which was administered by an anesthesia professional. The patient's blood pressure, heart rate, level of consciousness, respirations and oxygen were monitored throughout the procedure. A digital rectal exam was performed. A perianal exam was performed. The scope was introduced through the anus and advanced to the cecum. Retroflexion was performed in the rectum. The quality of bowel preparation was evaluated using the Troy Bowel Preparation Scale with scores of: right colon = 2, transverse colon = 2, left colon = 2. The total BBPS score was 6. Bowel prep was adequate. The patient experienced no blood loss. The procedure was not difficult. The patient tolerated the procedure well. There were no apparent adverse events. Attestation I personally performed the entire procedure Events Procedure Events Event Event Time ENDO SCOPE IN TIME 07/22/2024 9:05 AM ENDO CECUM REACHED 07/22/2024 9:20 AM ENDO SCOPE OUT TIME 07/22/2024 9:25 AM Specimens ID Type Source Tests Collected by Time A : right colon mass bx Tissue Colon SURGICAL PATHOLOGY EXAM Richard Borja MD 07/22/2024 0919 B : bx Tissue Rectum SURGICAL PATHOLOGY EXAM Richard Borja MD 07/22/2024 0923 Findings Ten or more adenomatous-appearing, multilobulated and semi-pedunculated pancolonic polyps; performed cold forceps biopsy Single malignant-appearing and multilobular mass (not traversable) in the cecum; bleeding occurred after intervention; performed cold forceps biopsy Single malignant-appearing mass that did not appear multilobular in the rectum; performed cold forceps biopsy Manoj Fowler MD GI PROCEDURE ORDERABLES Final Result from Last 3 Months or Most Recently Relevant to Health Maintenance Insurance MEDICARE Advance Directives * Full Code (Latest Code Status on File) Date Activated Date Inactivated Comments 09/02/2024 9:48 PM 09/05/2024 12:25 PM Question Answer Comments Patient has decision-making capacity? Yes * Full Code Date Activated Date Inactivated Comments 08/31/2024 7:20 PM 09/02/2024 9:48 PM Question Answer Comments Patient has decision-making capacity? Yes Care Teams Physician Industrial Relationship Specialty Start Date End Date Natalia Wayne, [employer] [address] [place] [id number] PCP - General 12/10/24
--- OUTSIDE RECORDS SUMMARY | 2025-03-12 08:28 | XMS_ITS | Data Portability ---
Author Organization [facility] Address [address] [place] [address] Assessment Encounter Date Assessment Date Assessment LastModified by Organization Details LastModified Time 09/11/2024 09/11/2024 1. HTN - start medication as prescribed. 2. Continue care with specialists. 3. Follow up in 2-3 weeks for recheck. Current plan for anticoagulant is short-term following her procedure (25 days?) She does have portacath in place to left chest wall Hospital records reviewed. Not available 09/13/2024 16:55:06 10/03/2024 10/03/2024 Lisinopril as prescribed. She can break in half if her blood pressure at dose time is <120/<80. Continue care with specialists. Follow up in 3 months for recheck, sooner if needed. Not available 10/04/2024 17:47:30 Plan of Treatment Reminders Order Date Submit Date Provider Last Modified By Organization Details Last Modified Time Details Appointments None recorded. Lab None recorded. Referral None recorded. Procedures None recorded. Surgeries None recorded. Imaging None recorded. Medication Orders lisinopril 10 mg tablet [address] [facility], [address] [place] [address], [address], 5 12:42:46 lisinopril 10 mg tablet 2023 024 [facility], [address] [place] [address], [address], 4 15:41:55 Patient TargetsNo targets recorded. Patient Instructions Encounter Date Encounter Id Patient Instructions Last Modified By Organization Details Last Modified Time 09/11/2024 [id number] high blood pressure: care instructions [facility] Not available 09/11/2024 15:20:14 learning about high blood pressure [facility] Not available 09/11/2024 15:20:14 high cholesterol : care instructions [facility] Not available 09/13/2024 16:54:02 Reason for Referral None Reported. Results Created Date Observation Date Name Description Value Unit Range Abnormal Flag Note LastModifiedBy Organization Detail LastModifiedTime 10/21/19 25 10/21/2024 HCV antib britney darwin garcia ngful use set HCV Ab normal Not Available [facility] [address] [place], [address], 10/21/2024 15:09:59 10/21/19 25 10/21/2024 CT, chest , w/o contr ast No observ ation record ed. [place] [id number] [facility] [place], [address], 10/21/2024 15:21:14 10/21/19 25 10/21/2024 CT, abdom en + pelvi s, w/o contr ast No observ ation record ed. [place] [id number] [facility] [place], [address], 10/21/2024 15:23:15 10/22/19 25 10/21/2024 elect dominic parrgr am, routi ne ECG, 12 leads min; inter preta tion and repor t (PROC ) No observ ation record ed. [place] [id number] [facility] [place], [address], 10/23/2024 10:18:59 11/14/19 25 11/14/2024 MR, angio gram, abdom en, w/wo contr ast No observ ation record ed. [place] [id number] [facility] [place], [address], 11/21/2024 10:32:46 Result Notes None recorded. Problems Name Problem SNOMED Code Status Onset Date Resolution Date Notes Provider Name and Address Organization Details Recorded Time Essential hypertension 07678084 Active 2023 Natalia Wayne NP [address] [place], [address], [employer] 16:54:24 Carcinoma of colon, stage IV 788251657 Active 2023 Natalia Wayne NP [address] [place], [address], [employer] 16:54:23 Hyperlipidemia 84925175 Active 2023 Natalia Wayne NP [address] [place], [address], [employer] 16:54:26 Problem Notes None recorded. Medical Equipment None Reported. Allergies No known drug allergies Medications Name Sig Start Date Stop Date Status Note LastModified by Organization Details LastModified Time Tylenol 500 mg tablet Take 2 tablets every 6 hours by oral route as needed. active Not Available Not Available No t Available lisinopril 10 mg tablet Take 1 tablet every day by oral route. 2024 active Not Available Not Available Not Avai lable ondansetron 4 mg disintegrat ing tablet Place 1 tablet every day by transling ual route as needed. active Not Available Not Available No t Available cefdinir 300 mg capsule TAKE ONE CAPSULE BY MOUTH TWICE DAILY -- FINISH ALL MEDICINE -- 09/11 completed Not Available Not Available Not Available Fiber-Tabs 625 mg tablet TAKE TWO TABLETS BY MOUTH TWICE DAILY active Not Available Not Available No t Available rosuvastati n 20 mg tablet TAKE 1 TABLET BY MOUTH ONCE DAILY AT NIGHT active Not Available Not Available No t Available Xarelto 10 mg tablet Take 1 tablet every day by oral route as directed. 10/03 completed Not Available Not Available Not Available Vitals Date Recorded Body height Body mass index (BMI) Body weight Heart rate Oxygen saturation Oxygen saturation in Arterial blood by Pulse oximetry Systolic blood pressure Diastolic blood pressure Systolic blood pressure Diastolic blood pressure Systolic blood pressure Diastolic blood pressure Provider Name and Address Organization Details Last Updated DateTime 5 170.18 cm 24.5 kg/m2 23762.1 1 g 75 /min 97 % 97 % 144 mm[Hg] 86 mm[Hg] 163 mm[Hg] 76 mm[Hg] 139 mm[Hg] 84 mm[Hg] Oksana Reddy [facility] 5 10:44:34 Date Recorded Body height Body mass index (BMI) Body weight Heart rate Oxygen saturation Oxygen saturation in Arterial blood by Pulse oximetry Systolic blood pressure Diastolic blood pressure Systolic blood pressure Diastolic blood pressure Systolic blood pressure Diastolic blood pressure Provider Name and Address Organization Details Last Updated DateTime 4 170.18 cm 24.3 kg/m2 88824.9 2 g 72 /min 97 % 97 % 177 mm[Hg] 84 mm[Hg] 182 mm[Hg] 82 mm[Hg] 174 mm[Hg] 86 mm[Hg] Oksana Reddy [employer] 4 14:56:23 Social History Question Answer Notes LastModified by [employer] ion Details LastModified Time Tobacco Smoking Status Current Every Day Smoker Oksana Reddy [employer]. 09/11/2024 14:56:35 Do You Have An Advance Directive? No Information n ot available 09/11/2024 Is Your Home Air Conditioned? Yes [email or web address] Information not available 09/11/2024 Do You Wear A Helmet When Biking? No [email or web address] Information not available 09/11/2024 Are You Blind Or Do You Have Difficulty Seeing? No [email or web address] Information n ot available 09/11/2024 What Is Your Level Of Caffeine Consumption? Moderate [email or web address] Information not available 09/11/2024 What Type Of Motorboat Mechanic Do You Use? None [email or web address] Information not available 09/11/2024 In The 14 Days Before Symptom Onset, Have You Had Close Contact With A Laboratory-confirm ed COVID-19 While That Case Was Ill? No [email or web address] Information n ot available 09/11/2024 In The 14 Days Before Symptom Onset, Have You Had Close Contact With A Person Who Is Under Investigation For COVID-19 While That Person Was Ill? No [email or web address] Information not available 09/11/2024 Have You Been To An Area Known To Be High Risk For COVID-19? No [email or web address] Information not available 09/11/2024 Are You Deaf Or Do You Have Serious Difficulty Hearing? No [email or web address] Information not available 09/11/2024 What Type Of Diet Are You Following? REGULAR [email or web address] Information n ot available 09/11/2024 How Many Days Of Moderate To Strenuous Exercise, Like A Brisk Walk, Did You Do In The Last 7 Days? 3 [email or web address] Information not available 09/11/2024 Are There Any Guns Present In Your Home? Yes Information not available 09/11/2024 Which Of Your Hands Is Dominant? Right [email or web address] Information n ot available 09/11/2024 Do You Have A Medical Power Of Rubber Belt Splicer? No [email or web address] Information not available 09/11/2024 What Was The Date Of Your Most Recent Tobacco Screening? 10/03/2024 [email or web address] Information not available 10/03/2024 Do You Have Any Pets? Yes [email or web address] Information not available 09/11/2024 What Is Your Relationship Status? [email or web address] Information not available 09/11/2024 Have You Repeated Any Grades? No [email or web address] Information not available 09/11/2024 Do You Use Your Seat Belt Or Car Seat Routinely? Yes [email or web address] Information not available 09/11/2024 Are You Sexually Active? No [email or web address] Information not available 09/11/2024 Do You Have Any Siblings? Shae Mcfadden [email or web address] Information not available 09/11/2024 Do You Have Smoke And Carbon Monoxide Detectors In Your Home? No [email or web address] Information not available 09/11/2024 At What Age Did You Start Smoking Tobacco? 17 [email or web address] Information not available 09/11/2024 Are You Passively Exposed To Smoke? Yes [email or web address] Information no t available 09/11/2024 Are There Any Smokers In Your House? Yes [email or web address] Information not available 09/11/2024 How Much Tobacco Do You Smoke? 0.5 PPD [email or web address] Information not available 09/11/2024 Do You Participate In Social Media? Yes [email or web address] Information not available 09/11/2024 Do You Use Sunscreen Routinely? No ittowa377 Information not available 09/11/2024 Has Tobacco Cessation Counseling Been Provided? No [email or web address] Information not available 09/11/2024 How Many Years Have You Smoked Tobacco? 60 [email or web address] Information not available 09/11/2024 Have You Recently Traveled Abroad? No [email or web address] Information not available 09/11/2024 Do You Have Difficulty Walking Or Climbing Stairs? No [email or web address] Information not available 09/11/2024 Are You Currently In School? No Information not available 09/11/2024 Do You Have Any Dietary Restrictions? No [email or web address] Information not available 09/11/2024 Sex: Female Functional Status Question Answer Note LastModified by Organizat ion Details LastModified Time Do you use any illicit or recreational drugs? No [email or web address] Information not available 09/11/2024 Do you or have you ever used any other forms of tobacco or nicotine? No [email or web address] Information not available 09/11/2024 What is your level of alcohol consumption? None [email or web address] Information not available 09/11/2024 Are you currently employed? No [email or web address] Information not available 09/11/2024 Do you have transportation difficulties? No [email or web address] Information not available 09/11/2024 Are you able to walk? YESWOREST [email or web address] Information not available 09/11/2024 Do you have difficulty doing errands alone? No lziyos442 Information not available 09/11/2024 Are you able to care for yourself? Yes [email or web address] Information not available 09/11/2024 Do you have difficulty dressing or bathing? Yes [email or web address] Information not available 09/11/2024 What is your exercise level? Moderate [email or web address] Information not available 09/11/2024 Mental Status Question Answer Note LastModified by Organizat ion Details LastModified Time Do you feel stressed (tense, restless, nervous, or anxious, or unable to sleep at night)? DS8388-5 [email or web address] Information not available 09/11/2024 Do you have difficulty concentrating, remembering or making decisions? No [email or web address] Information no t available 09/11/2024 Are you or have you been involved with bullying? No gyluxx400 Information not available 09/11/2024 Family History Nothing Reported. Medical History Condition Response Emergency room visit since last appointm ent. N Hospitalizations N Gynecological History Statement/Question Response Menses Monthly N HPV Vaccine N Date of Last Pap Smear Most Recent Mammogram Age at First Child 20 Obstetrics History GPAL:G 0 P 0 0 0 0 Immunizations Vaccine Type Date Status Note Provider Nam e and Address Organization Details Recorded Time COVID-19 vaccine, vector-nr, rS-Ad26, PF, 0.5 mL 12/10/2020 completed Natalia Wayne NP [address] [place] [address], [address], [facility], [facility]. 09/11/2024 15:10:35 Past Encounters Encounter ID Performer Location Encounter Start Date Encounter Closed Date Diagnosis/Indication Diagnosis SNOMED-CT Code Diagnosis ICD10 Code Diagnosis Note [id number] Natalia Wayne NP [place] [phone] 09/11/2024 13:46:57 09/11/2024 16:07:37 Essential hypertension 44612834 I10 Carcinoma of colon, stage IV 784429213 C18.9 Hyperlipidemia 91342889 E78.5 Normal weight 32675540 Z 68.24 [id number] Natalia Wayne NP [place] [id number] 10/03/2024 10:23:08 10/03/2024 11:18:09 Essential hypertension 86105243 I10 Carcinoma of colon, stage IV 636179491 C18.9 Health Concerns Section Related Observation LastModified by Organization Detai ls LastModified Time None Recorded Concern Status LastModified by Organization Details LastModified Time None Recorded Advance Directives Directive N: Payers Insurance Date Sequence Insurance Name Policy Number Policy Christian Covered Member ID Christian Member ID Guarantor Name 01/01/2025 [place] [employer] [facility] Lashae Wyman [id number] Lashae Wyman 01/01/2025 1 [place] Lashae Wyman [id number] Lashae Wyman Notes Date Note Type Note Provider Name and Address Organization Details Recorded Time 09/11/2024 text/html Patient presents to establish care. Lives with her . 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 No real medical history until recently. Has not seen PCP in years. States that in June she had abdominal pain and vomiting and ultimately passed out and went to [facility]. They did a CT and found out she had a kidney infection and mass of colon. She then went to Dr. Fowler. She had a colonoscopy and she has colorectal CA stage IV, with possible lymph involvement. Recommended chemo prior to surgery. Then she went to ER about 2 weeks ago and ended up having surgery with ileostomy placement on 09/02/2024. She is going to start chemo in [place] next month. She is going to have radiation in [place] after the chemo. She does have a portacath. Sees Dr. Fowler again on 09/24/2024.She has been told her blood pressure is very high by multiple providers but she has told them that she will just live with it being high.She did start her on cholesterol medication - she saw a vascular doctor and they put her on a statin in Jun. She has not followed up with them. Follows up with their office again November ([facility]). She is on Xarelto x 1 month. Natalia Wayne NP [address] [place], [address], [employer], Mytonomy. 09/13/2024 16:55:34 10/03/2024 text/html Patient presents for follow up on HTN. She has started chemotherapy.She has had mostly normal blood pressure but has had some low readings (low 100's over 60's). States she did not increase her lisinopril to 20 mg as prescribed and instead has only been taking 10 mg. She states that some nights she skips it if her blood pressure is normal. Natalia Wayne NP [address] [place], [address], [employer], Mytonomy. 10/04/2024 17:47:56 OBGyn Episode No OBEpisode recorded.
--- OUTSIDE RECORDS SUMMARY | 2025-03-12 08:28 | XMS_ITS | Encounter Summary ---
Author Organization [facility] Address [address] [place] [address] Care Team Providers Care Software Administrator Name Role Phone Natalia Wayne YVONNE Primary Care Provider [phone] Reason for Referral * Imaging (Routine) - Pending Review Specialty Diagnoses / Procedures Referred By Contac t Referred To Contact Radiology Diagnoses Rectal cancer (CMS/HCC) Procedures CT Chest w IV Contrast Joi Stewart MD [address] [address] Phone: tel: fax: Referral ID Status Reason Start Date Expiration Date V isits Requested Visits Authorized [id number] Pending Review 02/13/2025 08/15/2026 1 1 * Imaging (Routine) - Pending Review Specialty Diagnoses / Procedures Referred By Lexii t Referred To Contact Radiology Diagnoses Rectal cancer (CMS/HCC) Procedures CT Abdomen Pelvis w IV Contrast Joi Stewart MD [address] [place] [address] Phone: tel: fax: Referral ID Status Reason Start Date Expiration Date V isits Requested Visits Authorized [id number] Pending Review 02/13/2025 08/15/2026 1 1 Encounter Details Date Type Department Care Team (Late st Contact Info) Description 02/13/2025 Orders Only [facility] [address] [place] [address] Cecilia Walters, RN [id number] Rectal cancer (CMS/HCC) (Primary Dx) Social History [...] any time in the past 12 m ont, were you homeless or living in a skilled nursing (including now)? No 09/02/2024 Utilities Answer Date Recorded In the past 12 months has e electric, gas, oil, or water company [...] 3:00 PM EDT Appointment [facility] [address] [place] [address] Manoj Fowler MD [address] [address] 04/22/2025 12:40 PM EDT Appointment [facility] [address] [place] [address] 04/22/2025 3:00 PM EDT Office Visit [facility] [address] [place] [phone] Joi Stewart MD [address] [facility] [address] [place] [address] 08/14/2025 10:00 AM EST Appointment [facility] [address] [place] [address] 5th Floor [address] [place] [address] 08/14/2025 11:00 AM EST Office Visit [facility] [address] [facility] 5th Floor [address] [place] [address] Hilary Cordova MD [address] [facility] [address] [place] [address] Scheduled Orders Name Type Priority Associated Diagnoses Orde r Schedule CT Abdomen Pelvis w IV Contrast Imaging Routine Rectal cancer (CMS/HCC) Expected: 04/22/2025 (Approximate), Expires: 08/16/2026 CT Chest w IV Contrast Imaging Routine Rectal cancer (CMS/HCC) Expected: 04/22/2025 (Approximate), Expires: 08/16/2026 documented as of this encounter Visit Diagnoses [...] documented as of this encounter Care Teams Software Administrator Relationship Specialty Start Date End Date Natalia Wayne, YVONNE [address] [place] [address] PCP - General 12/10/24 documented as of this encounter
--- OUTSIDE RECORDS SUMMARY | 2025-03-12 08:28 | XMS_ITS | Encounter Summary ---
Author Organization [facility] Address [address] [place] [address] Care Team Providers Care [employer] Officer Name Role Phone Natalia Wayne YVONNE Primary Care Provider [phone] Encounter Details Date Type Department Care Team (Latest Contact Info) Description 01/21/2025 Travel Social History Tobacco Use Types Packs/Day [...] time in the past [address] [facility], were you homeless or living in [...] PM EDT Appointment [facility] [address] [place] [address] Manoj Fowler MD [address] [facility] [address] [place] [address] 04/22/2025 12:40 PM EDT Appointment [facility] [address] [place] [address] 04/22/2025 3:00 PM EDT Office Visit [facility] [address] [place] [phone] Joi Stewart MD [address] [facility] [address] [place] [address] 08/14/2025 10:00 AM EST Appointment [facility] [address] [facility] 5th Floor [address] [place] [address] 08/14/2025 11:00 AM EST Office Visit [facility] [address] [facility] 5th Floor [address] [place] [address] Hilary Cordova MD [address] [facility] [address] [place] [address] documented as of this encounter Visit Diagnoses Not on filedocumented in this encounter Additional Health Concerns Assessment Noted Time A fall risk assessment has been complete d for the patient 01/21/2025 1:27 PM EDT A Body Mass Index follow-up plan has been documented for the patient 01/21/2025 4:15 PM EDT documented as of this encounter Care Teams [employer] Relationship Specialty Start Date End Date Natalia Wayne, YVONNE [address] [place] [address] PCP - General 12/10/24 documented as of this encounter
[2025-03-12 08:49] LABS: Basophils # 0.1 K/mm3 (0-0.2); Basophils % 0.8 % (0.1-2.0); Eosinophils # 0.2 Kmm3 (0.0-0.4); Eosinophils % 2.3 % (0.1-12.0); Hematocrit 37.4 % (37.0-47.0); Hemoglobin 12.5 g/dL (12.2-16.2); Immature Granulocytes # 0.02 10^3uL; Immature Granulocytes % 0.3 %; Lymphocytes # 1.1 K/mm3 (0.7-4.5); Lymphocytes % 15.6 % (10-50); Mean Corpuscular HGB Conc 33.4 g/dL (31.8-35.4); Mean Corpuscular Hemoglobin 33.1 pg (27.0-31.2); Mean Corpuscular Volume 98.9 fl (81-99); Mean Platelet Volume 9.2 fl (7.4-10.4); Monocytes # 0.6 K/mm3 (0.1-1.0); Monocytes % 7.9 % (1.7-9.3); Neutrophils # 5.4 K/mm3 (1.8-7.8); Neutrophils % 73.1 % (37.0-80.0); Nucleated Red Blood Cells # 0 10^3/uL; Nucleated Red Blood Cells % 0 %; Platelet Count 286 K/mm3 (142-424); Red Blood Count 3.78 M/mm3 (4.20-5.40); Red Cell Distribution Width 14.7 % (11.5-17.5); White Blood Count 7.3 K/mm3 (4.8-10.8)
[2025-03-12 08:50] LABS: Albumin Level 3.7 g/dl (3.5-5.0); Chloride 113 mmol/L (98-107)
[2025-03-12 08:51] LABS: Sodium 139 mmol/L (136-145)
[2025-03-12 08:53] LABS: Blood Urea Nitrogen 13 mg/dl (7-17); Creatinine Clearance Estimated 36 mL/min (50-200); Estimated Glomerular Filt Rate 37 ml/min (>60); GFR (African American) 44 ML/MIN (>60)
[2025-03-12 08:54] LABS: Alanine Aminotransferase 13 U/L (12-78); Albumin/Globulin Ratio 1.2 (1.1-1.8); Alkaline Phosphatase 69 U/L (38-126); Aspartate Amino Transferase 26 U/L (14-36); Bilirubin,Total 0.3 mg/dl (0.2-1.3); Calcium 9.1 mg/dl (8.4-10.2); Carbon Dioxide 24 mmol/L (22.0-30.0); Glucose 104 mg/dl (74-100); Total Protein,Serum 6.7 g/dl (6.3-8.2)
[2025-03-12] MEDS: DEXTROSE 5 % IN WATER 100 ML 25 ML IV (09:14)
[2025-03-12] MEDS: DEXAMETHASONE 4MG TABLET 12 MG (09:14)
[2025-03-12] MEDS: ONDANSETRON 4MG ODT 16 MG (09:14)
[2025-03-12] MEDS: WATER IV ×2 (09:42→11:58)
[2025-03-12] MEDS: DEXTROSE 5% IV ×2 (09:42→11:58)
[2025-03-12] MEDS: OXALIPLATIN IV (09:42)
[2025-03-12] MEDS: LEUCOVORIN CALCIUM IV (11:58)
[2025-03-12] MEDS: SODIUM CHLORIDE IV (13:40)
[2025-03-12] MEDS: FLUOROURACIL IV (13:40)
[2025-03-12] MEDS: FLUOROURACIL 500MG/10ML VIAL 700 MG IV (14:21)
--- OUTSIDE RECORDS SUMMARY | 2025-03-14 12:46 | XMS_ITS | Clinical Summary ---
Author Organization [facility] Address [address] [place] [address] Care Team Providers Care Show Host/Hostess Name Role Phone Natalia Wayne YVONNE Primary Care Provider [phone] Allergies No known active allergies Medications rosuvastatin [...] Orders Only [facility] [address] [place] [address] Cecilia Walters, RN Rectal cancer (CMS/HCC) (Primary Dx) 02/04/2025 2:40 PM EDT Office Visit [facility] [address] [place] [address] Joi Stewart MD Rectal cancer (CMS/HCC) (Primary Dx) 02/04/2025 2:00 PM EDT Office Visit [facility] Multidisciplinary Oncology Clinic [address] [place] [address] Manoj Fowler MD Rectal cancer (CMS/HCC) (Primary Dx) 02/04/2025 9:12 AM EDT - 02/04/2025 11:59 PM EDT Hospital Encounter [facility] [address] [place] [address] Rectal cancer (CMS/HCC) Discharge Disposition: Home or Self Care 02/04/2025 Travel 01/28/2025 2:00 PM EDT - 01/28/2025 11:59 PM EDT Hospital Encounter [facility] [address] [place] [address] Rectal cancer (CMS/HCC) (Primary Dx) Discharge Disposition: Home or Self Care 01/28/2025 Travel 01/21/2025 1:24 PM EDT - 01/21/2025 11:59 PM EDT Hospital Encounter [facility] 2 [address] [place] [address] Rectal cancer (CMS/HCC) (Primary Dx) Discharge Disposition: Home or Self Care 01/21/2025 Travel 01/14/2025 1:30 PM EDT - 01/14/2025 11:59 PM EDT Hospital Encounter [facility] 2 [address] [place] [address] Rectal cancer (CMS/HCC) (Primary Dx) Discharge Disposition: Home or Self Care 01/14/2025 Travel 01/08/2025 Clinical Support [facility] Hematology/BMT and Cellular Therapy Program [address] [facility], [facility] [place] [address] Sree Guerrero, PharmD Rectal cancer (CMS/HCC) (Primary Dx) 01/07/2025 12:10 PM EDT - 01/07/2025 11:59 PM EDT Hospital Encounter [facility] 1 [address] [place] [address] Rectal cancer (CMS/HCC) (Primary Dx) Discharge Disposition: Home or Self Care 01/07/2025 10:30 AM EDT - 01/07/2025 12:09 PM EDT Hospital Encounter [facility] 1 [address] [place] [address] Rectal cancer (CMS/HCC) (Primary Dx) Discharge Disposition: Home or Self Care 01/07/2025 9:20 AM EDT Office Visit [facility] [address] [place] [address] Joi Stewart MD Rectal cancer (CMS/HCC) (Primary Dx) 01/07/2025 9:10 AM EDT Clinical Support [facility] [address] [place] [address] Rectal cancer (CMS/HCC) 01/07/2025 Travel 12/31/2024 1:19 PM EDT - 12/31/2024 11:59 PM EDT Hospital Encounter [facility] 1 [address] [place] [address] Rectal cancer (CMS/HCC) (Primary Dx) Discharge Disposition: Home or Self Care 12/31/2024 Travel 12/25/2024 Telephone [facility] [address] [place] [address] Manoj Fowler MD Appointment 12/24/2024 10:57 AM EDT - 12/24/2024 11:59 PM EDT Hospital Encounter [facility] 1 [address] [place] [address] Discharge Disposition: Home or Self Care 12/24/2024 10:24 AM EDT - 12/24/2024 10:56 AM EDT Hospital Encounter [facility] 1 [address] [place] [address] Rectal cancer (CMS/HCC) (Primary Dx) Discharge Disposition: Home or Self Care 12/24/2024 9:20 AM EDT Office Visit [facility] [address] [place] [address] Joi Stewart MD Rectal cancer (CMS/HCC) 12/24/2024 Travel 12/16/2024 Telephone [facility] [address] [place] [address] Joi Stewart MD 12/13/2024 Orders Only [facility] [address] [facility], 2nd [place] [address] Joi Stewart MD Rectal cancer (CMS/HCC) (Primary Dx) from Last 3 Months Family History Medical [...] any time in the past 12 m [facility], were you homeless or living in a long-term (including now)? No 09/02/2024 Utilities Answer Date Recorded In the past 12 months has th e In*Situ Architecture, gas, oil, or water company threatened to [...] 3:00 PM EDT Appointment [facility] End[facility] [address] [place] [address] Manoj Fowler MD [address] [facility] [address] [place] [address] 04/22/2025 12:40 PM EDT Appointment [facility] [address]nd [place] [address] 04/22/2025 3:00 PM EDT Office Visit [facility] [address] [place] [address] Joi Stewart MD [address] [facility] Tete Baker [facility] [address] [place] [address] 08/14/2025 10:[address] [facility] Vascular Lab [address] [facility] 5th Floor [address] [place] [address] 08/14/2025 11:00 AM EST Office Visit [facility] Comprehensive Vascular Clinic [address] [facility] 5th Floor [address], [address] [place] [address] Hilary Cordova MD [address] [facility] [address] [place] [address] Health Maintenance Due Date Last Done Comments [facility]-Bone Density Scan 1950 [facility]-Medicare Annual Wellness (AWV) 1950 [facility]-Infant/Child/Adol SDOH Screenings 1950 [facility]-DTaP,Tdap,and Td Vaccine s (1 - Tdap) 1968 [facility]-Pneumococcal Vaccine: 50 + Years (1 of 2 - PCV) 1968 [facility]-Zoster Vaccines (1 of 2) 1968 CT Colonography 1994 FIT-DNA 1994 FIT 1994 FOBT 1994 Sigmoidoscopy 1994 NJN-CTKAO-89 Vaccine (2 - Ja nssen risk series) [...] Pretreatment Tumor staging: T3a N+ Prior treatment: DESIGN INTERN completed 01/29 TECHNIQUE: Multiplanar, multisequence MR imaging [...] Pretreatment Tumor staging: T3a N+ Prior treatment: DESIGN INTERN completed 01/29 TECHNIQUE: Multiplanar, multisequence MR imaging of the pelvis was performed on a 3Tmagnet both before and after administration of 6.5 mL of intravenousGadavist contrast. COMPARISON: 08/06/2024: MR pelvis with and without contrast FINDINGS: Treated primary tumor characteristics: Significantly decreased size of thepolypoid lesion in the upper rectum with minimal residual disease. New [id number] hypointense T2 scarring along the left/posterior rectum at thesite of primary tumor. Subtle residual nodular focus of hazy [id number] signal along the mucosal/submucosal margin of the left upperrectum at the site of primary tumor (series 7, images 29/30 and series 8,images 43/45), with peripheral T2 dark scarring along the serosal margin.This focus demonstrates hyperenhancement similar to prior as well asrestricted diffusion (series 13, image 28 and series 10/11, [id number]/30). An area of T2 intermediate signal along [...] signing this report, I, the attending physician, jose danielat I have personally reviewed the images/data for [...] LAB HEMATOLOGY METHOD 01/21/2025 2:[address] [facility] RBC Count 3.53(L) 3.90 - 5.20 10*6/uL LAB HEMATOLOGY METHOD 01/21/2025 2:[address] [facility] HGB 11.8 11.2 - 15.7 g/dL LAB HEMATOLOGY METHOD 01/21/2025 2:[address] [facility] HCT 34.1 34.0 - 45.0 % LAB HEMATOLOGY METHOD 01/21/2025 2:[address] [facility] Platelet Count 238 155 - 369 10*3/uL LAB HEMATOLOGY METHOD 01/21/2025 2:[address] [facility] MCV 97 79 - 98 fL LAB HEMATOLOGY METHOD 01/21/2025 2:[address] [facility] MCH 33.4(H) 26.0 - 32.0 pg LAB HEMATOLOGY METHOD 01/21/2025 2:[address] [facility] MCHC 34.6 30.7 - 35.5 g/dL LAB HEMATOLOGY METHOD 01/21/2025 2:[address] [facility] RDW 14.9(H) 11.5 - 14.5 % LAB HEMATOLOGY METHOD 01/21/2025 2:[address] [facility] MPV 9.1 8.8 - 12.5 fL LAB HEMATOLOGY METHOD 01/21/2025 2:[address] [facility] nRBC 0.0 <=0.0 per 100 WBCs LAB HEMATOLOGY METHOD 01/21/2025 2:[address] [facility] Differential Type Automated LAB HEMATOLOGY METHOD 01/21/2025 2:[address] [facility] Neutrophils % 75 % LAB HEMATOLOGY METHOD 01/21/2025 2:[address] [facility] Lymphocytes % 12 % LAB HEMATOLOGY METHOD 01/21/2025 2:[address] [facility] Monocytes % 9 % LAB HEMATOLOGY METHOD 01/21/2025 2:[address] [facility] Eosinophils % 3 % LAB HEMATOLOGY METHOD 01/21/2025 2:[address] [facility] Basophils % 0 % LAB HEMATOLOGY METHOD 01/21/2025 2:[address] [facility] Immature Granulocytes % 1 % LAB HEMATOLOGY METHOD 01/21/2025 2:[address] [facility] Neutrophils Absolute 5.26 1.60 - 6.10 10*3/uL LAB HEMATOLOGY METHOD 01/21/2025 2:[address] [facility] Lymphocytes Absolute 0.86(L) 1.20 - 3.90 10*3/uL LAB HEMATOLOGY METHOD 01/21/2025 2:[address] [facility] Monocytes Absolute 0.65 0.30 - 0.90 10*3/uL LAB HEMATOLOGY METHOD 01/21/2025 2:[address] [facility] Eosinophils Absolute 0.23 0.00 - 0.50 10*3/uL LAB HEMATOLOGY METHOD 01/21/2025 2:[address] [facility] Basophils Absolute 0.03 0.00 - 0.10 10*3/uL LAB HEMATOLOGY METHOD 01/21/2025 2:[address] [facility] Immature Granulocytes Absolute 0.08(H) 0.00 - 0.06 10*3/uL LAB HEMATOLOGY METHOD 01/21/2025 2:[address] [facility] Blood Blood sample taken from central line / Unknown (Port) Long-term Catheter / Unknown 01/21/2025 2:16 PM EDT 01/21/2025 2:[address] [facility] - 01/21/2025 2:47 PM EDT Therapeutic decision making should be based on absolute values, rather than percentages. us Joi Stewart MD LAB BLOOD ORDERABLES Final Res ult [facility] [address] [place] [address] * (ABNORMAL) Comprehensive metabolic panel (01/21/2025 2:16 PM EDT) Only the most recent of5 resultswithin the time period is included. Glucose, Plasma 120(H) 74 - 99 mg/dL 01/21/2025 3:[address] [facility] BUN, Plasma 23 8 - 23 mg/dL 01/21/2025 3:[address] [facility] Creatinine, Plasma 1.62(H) 0.60 - 1.10 mg/dL 01/21/2025 3:[address] [facility] BUN/Creatinine Ratio 14 01/21/2025 3:[address] [facility] Sodium, Plasma 136 136 - 145 mmol/L 01/21/2025 3:[address] [facility] Potassium, Plasma 3.6 3.6 - 4.9 mmol/L 01/21/2025 3:[address] [facility] Chloride, Plasma 103 97 - 107 mmol/L 01/21/2025 3:[address] [facility] CO2, Plasma 23 22 - 29 mmol/L 01/21/2025 3:[address] [facility] Anion Gap 10 6 - 16 mmol/L 01/21/2025 3:[address] [facility] Total Calcium, Plasma 9.2 8.9 - 10.2 mg/dL 01/21/2025 3:[address] [facility] Total Protein 5.9(L) 6.3 - 7.9 g/dL 01/21/2025 3:[address] [facility] Albumin, Plasma 3.7 3.5 - 5.2 g/dL 01/21/2025 3:[address] [facility] AST, Plasma 11 10 - 35 U/L 01/21/2025 3:[address] [facility] ALT, Plasma 10 10 - 35 U/L 01/21/2025 3:[address] [facility] Alkaline Phosphatase, Plasma 59 46 - 142 U/L 01/21/2025 3:[address] [facility] Total Bilirubin, Plasma 0.3 0.2 - 1.1 mg/dL 01/21/2025 3:[address] [facility] eGFRcr 33.0 mL/min/1.7 3m*2 01/21/2025 3:[address] [facility] Comment:Reported eGFRcr in m L/min/1.73m2 is based the CKD-EPI 2020 equation that does not use a race coefficient. Blood Venous blood specimen / Unknown (Port) Long-term Catheter / Unknown 01/21/2025 2:16 PM EDT 01/21/2025 2:45 PM EDT us Joi Stewart MD LAB BLOOD ORDERABLES Final Res ult [facility] [address] [place] [address] * CEA (12/24/2024 9:18 AM EDT) CEA, Serum <1.8 <4.0 ng/mL 12/24/2024 10:[address] [facility] Blood Venous blood specimen / Unknown Venipuncture / Unknown 12/24/2024 9:18 AM EDT 12/24/2024 10:[address] [facility] - 12/24/2024 10:41 AM EDT Normal range for smokers: < 5.5 ng/ml Normal range for non-smokers: <=4.0 ng/ml Performed by Karin electrochemiluminescent immunoassay. Results obtained with different test methods or kits cannot be used interchangeably. us Joi Stewart MD LAB BLOOD ORDERABLES Final Res ult [facility] [address] [place] [address] * Hepatitis C Antibody - ED (08/31/2024 5:22 PM EST) Hepatitis C Antibody Negative Negative 08/31/2024 6:[address] [facility] Blood Venous blood specimen / Unknown Venipuncture / Unknown 08/31/2024 5:22 PM EST 08/31/2024 5:40 PM EST us Meño Cano MD LAB BLOOD ORDERABLES Final Re sult Performing Organization Address City/[facility]/ZIP Co de Phone Number [facility] [address] [place] [address] * CT Chest w IV Contrast (08/06/2024 [...] Fidel Aj MD on 08/06/2024 3:05 PM us Manoj Fowler MD IMG CT PROCEDURES Final [...] medications. Staff Staff Role Robert Bueno Endo Information Assurance Officer Shruti Gutierrez CRNA CRNA Gantt, Randolph Endo Information Assurance Officer Richard Borja MD Proceduralist Marcelina Arana Nurse [...] of bowel preparation was evaluated using the [place] Bowel Preparation Scale with scores of: right [...] Most Recently Relevant to Health Maintenance Insurance [employer] [place] [id number] MEDICARE Advance Directives * Full Code (Latest Code Status on File) Date Activated Date Inactivated Comments 09/02/2024 9:48 PM 09/05/2024 12:25 PM Question Answer Comments Patient has decision-making capacity? Yes * Full Code Date Activated Date Inactivated Comments 08/31/2024 7:20 PM 09/02/2024 9:48 PM Question Answer Comments Patient has decision-making capacity? Yes Care Teams Show Host/Hostess Relationship Specialty Start Date End Date Natalia Wayne, YVONNE [address] [place] [address] PCP - General 12/10/24
--- OUTSIDE RECORDS SUMMARY | 2025-03-14 12:46 | XMS_ITS | Encounter Summary ---
Author Organization [facility] Address [address] [place] [address] Care Team Providers Care Crop Quantitative Geneticist Name Role Phone Pcp, No Primary Care Provider Natalia Hector APRN Primary Care Provider [phone] Encounter Details Date Type Department Care Team (Late st Contact Info) Description 11/14/2024 Orders Only External Location [address] [place] [address] Provider, External Social History Tobacco Use Types [...] PM EDT Appointment [facility] [address] [place] [address] Manoj Fowler MD [address] [facility] [address] [place] [address] 04/22/2025 12:40 PM EDT Appointment [facility] [address]nd [place] [address] 04/22/2025 3:00 PM EDT Office Visit [facility] [address] [place] [address] Joi Stewart MD [address] [facility] Tete Baker [facility] [address] [place] [address] 08/14/2025 10:00 AM EST Appointment [facility] Vascular Lab [address] [facility] 5th Floor [address], [address] [place] [address] 08/14/2025 11:00 AM EST Office Visit [facility] Comprehensive Vascular Clinic [address] [facility] 5th Floor [address], [address] [place] [address] Hilary Cordova MD [address] [facility] [address] [place] [address] documented as of this encounter [...] documented as of this encounter Care Teams Crop Quantitative Geneticist Relationship Specialty Start Date End Date Pcp, [place] [address] PCP - General Family Medicine 06/11/24 12/09/24 Natalia Wayne APRN [address] [place] [address] PCP - General 12/10/24 documented as of this encounter
--- OUTSIDE RECORDS SUMMARY | 2025-03-14 12:46 | XMS_ITS | Encounter Summary ---
Author Organization [facility] Address [address] [place] [address] Care Team Providers Care Strategy Lead Name Role Phone Natalia Wayne YVONNE Primary Care Provider [phone] Encounter Details Date Type Department Care Team [...] any time in the past 12 m [facility], were you homeless or living in a long term (including now)? No 09/02/2024 Utilities Answer Date [...] PM EDT Appointment [facility] [address] [place] [phone] Manoj Fowler MD [address] [facility] [address] [place] [address] 04/22/2025 12:40 PM EDT Appointment [facility] [address] [place] [address] 04/22/2025 3:00 PM EDT Office Visit [facility] [address] [place] [phone] Joi Stewart MD [address] [facility] Tete Baker [address] [place] [address] 08/14/2025 10:00 AM EST Appointment [facility] Vascular Lab [address] [facility] 5th Floor [address], [address] [place] [address] 08/14/2025 11:00 AM EST Office Visit [facility] Comprehensive Vascular Clinic [address] [facility] 5th Floor [address], [address] [place] [address] Hilary Cordova MD [address] [facility] [address] [place] [address] documented as of this encounter Visit Diagnoses Not on filedocumented in this encounter Additional Health Concerns Assessment Noted Time A fall risk assessment has been complete d for the patient 01/28/2025 2:35 PM EDT A Body Mass Index follow-up plan has been documented for the patient 01/21/2025 4:15 PM EDT documented as of this encounter Care Teams Strategy Lead Relationship Specialty Start Date End Date Natalia Wayne, YVONNE [address] [place] [address] PCP - General 12/10/24 documented as of this encounter
--- OUTSIDE RECORDS SUMMARY | 2025-03-14 12:46 | XMS_ITS | Encounter Summary ---
Author Organization [facility] Address [address] [place] [address] Care Team Providers Care Administrative Project Coordinator Name Role Phone Natalia Wayne YVONNE Primary Care Provider [phone] Encounter Details Date Type Department Care Team [...] any time in the past 12 m [facility], were you homeless or living in [...] PM EDT Appointment [facility] [address] [place] [address] Manoj Fowler MD [address] [facility] [address] [place] [address] 04/22/2025 12:40 PM EDT Appointment [facility] [address] [place] [address] 04/22/2025 3:00 PM EDT Office Visit [facility] [address] [place] [address] Joi Stewart MD [address] [facility] Tete Baker [address] [place] [address] 08/14/2025 10:00 AM EST Appointment [facility] Vascular Lab [address] [facility] 5th Floor [address], [address] [place] [address] 08/14/2025 11:00 AM EST Office Visit [facility] Comprehensive Vascular Clinic [address] [facility] 5th Floor [address], [address] [place] [address] Hilary Cordova MD [address] [facility] [address] [place] [address] documented as of this encounter Visit Diagnoses Not on filedocumented in this encounter Additional Health Concerns Assessment Noted Time A fall risk assessment has been complete d for the patient 01/14/2025 1:42 PM EDT A Body Mass Index follow-up plan has been documented for the patient 01/14/2025 3:56 PM EDT documented as of this encounter Care Teams Administrative Project Coordinator Relationship Specialty Start Date End Date Natalia Wayne, YVONNE [address] [place] [address] PCP - General 12/10/24 documented as of this encounter
--- OUTSIDE RECORDS SUMMARY | 2025-03-14 12:46 | XMS_ITS | Encounter Summary ---
Author Organization [facility] Address [address] [place] [address] Care Team Providers Care Freight Handler Name Role Phone Natalia Wayne YVONNE Primary Care Provider [phone] Encounter Details Date Type Department Care Team [...] any time in the past 12 m [facility], were you homeless or [...] PM EDT Appointment [facility] [address] [place] [phone] Manoj Fowler MD [address] [facility] [address] [place] [address] 04/22/2025 12:40 PM EDT Appointment [facility] [address] [place] [address] 04/22/2025 3:00 PM EDT Office Visit [facility] [address] [place] [phone] Joi Stewart MD 800 [facility] Tete Baker [address] [place] [address] 08/14/2025 10:00 AM EST Appointment [facility] Vascular Lab [address] [facility] 5th Floor [address], [address] [place] [address] 08/14/2025 11:00 AM EST Office Visit [facility] [address] [facility] 5th Floor [address], [address] [place] [address] Hilary Cordova MD [address] [facility] [address] [place] [address] documented as of this encounter Visit Diagnoses Not on filedocumented in this encounter Additional Health Concerns Assessment Noted Time A fall risk assessment has been complete d for the patient 01/21/2025 1:27 PM EDT A Body Mass Index follow-up plan has been documented for the patient 01/21/2025 4:15 PM EDT documented as of this encounter Care Teams Freight Handler Relationship Specialty Start Date End Date Natalia Wayne, YVONNE [address] [place] [address] PCP - General 12/10/24 documented as of this encounter
--- OUTSIDE RECORDS SUMMARY | 2025-03-14 12:46 | XMS_ITS | Data Portability ---
Author Organization [place] Address [address] [place] [address] Assessment Encounter Date Assessment Date Assessment LastModified [...] Orders lisinopril 10 mg tablet 2024 025 [facility], [address] [place] [address], [address], 5 12:42:46 lisinopril 10 mg tablet 2023 024 [facility], [address] [place] [address], [address], 4 15:41:55 Patient TargetsNo targets recorded. Patient Instructions Encounter Date Encounter Id Patient Instructions Last Modified By Organization Details Last Modified Time 09/11/2024 [id number] high blood pressure: care instructions [facility] Not available 09/11/2024 15:20:14 learning about high blood pressure [facility] Not available 09/11/2024 15:20:14 high cholesterol : care instructions [facility] Not available 09/13/2024 16:54:02 Reason for Referral None Reported. Results Created Date Observation Date Name Description Value Unit Range Abnormal Flag Note LastModifiedBy Organization Detail LastModifiedTime 10/21/19 25 10/21/2024 HCV antib britney darwin garcia ngful use set HCV Ab normal Not Available [facility] ([facility] [address], [place], [address], 10/21/2024 15:09:59 10/21/19 25 10/21/2024 CT, chest , w/o contr ast No observ ation record ed. [place] [id number] [facility], [place], [address], 10/21/2024 15:21:14 10/21/19 25 10/21/2024 CT, abdom en + pelvi s, w/o contr ast No observ ation record ed. [place] [id number] [facility], [place], [address], 10/21/2024 15:23:15 10/22/19 25 10/21/2024 elect dominic parrgr am, routi ne ECG, 12 leads min; inter preta tion and repor t (PROC ) No observ ation record ed. [place] [id number] [facility], [place], [address], 10/23/2024 10:18:59 11/14/19 25 11/14/2024 MR, angio gram, abdom en, w/wo contr ast No observ ation record ed. [place] [id number] [facility], [place], [address], 11/21/2024 10:32:46 Result Notes None recorded. Problems Name Problem SNOMED Code Status Onset Date Resolution Date Notes Provider Name and Address Organization Details Recorded Time Essential hypertension 54689276 Active 2023 Natalia Wayne NP [address] [place], [address], [employer] 16:54:24 Carcinoma of colon, stage IV 652120893 Active 2023 Natalia Wayne NP [address] [place], [address], [employer] 16:54:23 Hyperlipidemia 22509851 Active 2023 Natalia Wayne NP [address] [place], [address], [employer] 16:54:26 Problem Notes None recorded. Medical [...] Updated DateTime 5 170.18 cm 24.5 kg/m2 96379.1 1 g 75 /min 97 % 97 % 144 mm[Hg] 86 mm[Hg] 163 mm[Hg] 76 mm[Hg] 139 mm[Hg] 84 mm[Hg] Oksana Reddy [place] 5 10:44:34 Date Recorded Body height Body mass index (BMI) Body weight Heart rate Oxygen saturation Oxygen saturation in Arterial blood by Pulse oximetry Systolic blood pressure Diastolic blood pressure Systolic blood pressure Diastolic blood pressure Systolic blood pressure Diastolic blood pressure Provider Name and Address Organization Details Last Updated DateTime 4 170.18 cm 24.3 kg/m2 40625.9 2 g 72 /min 97 % 97 % 177 mm[Hg] 84 mm[Hg] 182 mm[Hg] 82 mm[Hg] 174 mm[Hg] 86 mm[Hg] Oksana Reddy [employer] 4 14:56:23 Social History Question Answer Notes LastModified by [employer] Details LastModified Time Tobacco Smoking Status Current Every Day Smoker Oksana Reddy [employer]. 09/11/2024 14:56:35 Do You Have An Advance Directive? No [email or web address] Information n ot available 09/11/2024 Is Your Home Air Conditioned? Yes [email or web address] Information not available 09/11/2024 Do You Wear A Helmet When Biking? No [email or web address] Information not available 09/11/2024 Are You Blind Or Do You Have Difficulty Seeing? No [email or web address] Information n ot available 09/11/2024 What Is Your Level Of Caffeine Consumption? Moderate [email or web address] Information not available 09/11/2024 What Type Of Cardiac Cath Lab Radiology Technologist Do You Use? None [email or web address] Information not available 09/11/2024 In The 14 Days Before Symptom Onset, Have You Had Close Contact With A Laboratory-confirm ed COVID-19 While That Case Was Ill? No [email or web address] Information n ot available 09/11/2024 In The 14 Days Before Symptom Onset, Have You Had Close Contact With A Person Who Is Under Investigation For COVID-19 While That Person Was Ill? No Information not available 09/11/2024 Have You Been To An Area Known To Be High Risk For COVID-19? No Information not available 09/11/2024 Are You Deaf Or Do You Have Serious Difficulty Hearing? No Information not available 09/11/2024 What Type Of Diet Are You Following? REGULAR [email or web address] Information n ot available 09/11/2024 How Many Days Of Moderate To Strenuous Exercise, Like A Brisk Walk, Did You Do In The Last 7 Days? 3 Information not available 09/11/2024 Are There Any Guns Present In Your Home? Yes Information not available 09/11/2024 Which Of Your Hands Is Dominant? Right [email or web address] Information n ot available 09/11/2024 Do You Have A Medical Power Of Manager Credit Risk? No [email or web address] Information not available 09/11/2024 What Was The Date Of Your Most Recent Tobacco Screening? 10/03/2024 [email or web address] Information not available 10/03/2024 Do You Have Any Pets? Yes [email or web address] Information not available 09/11/2024 What Is Your Relationship Status? [email or web address] Information not available 09/11/2024 Have You Repeated Any Grades? No [email or web address] Information not available 09/11/2024 Do You Use Your Seat Belt Or Car Seat Routinely? Yes [email or web address] Information not available 09/11/2024 Are You Sexually Active? No [email or web address] Information not available 09/11/2024 Do You Have Any Siblings? Shae Mcfadden [email or web address] Information not available 09/11/2024 Do You Have Smoke And Carbon Monoxide Detectors In Your Home? No [email or web address] Information not available 09/11/2024 At What Age Did You Start Smoking Tobacco? 17 Information not available 09/11/2024 Are You Passively Exposed To Smoke? Yes Information no t available 09/11/2024 Are There Any Smokers In Your House? Yes [email or web address] Information not available 09/11/2024 How Much Tobacco Do You Smoke? 0.5 PPD [email or web address] Information not available 09/11/2024 Do You Participate In Social Media? Yes [email or web address] Information not available 09/11/2024 Do You Use Sunscreen Routinely? No [email or web address] Information not available 09/11/2024 Has Tobacco Cessation Counseling Been Provided? No [email or web address] Information not available 09/11/2024 How Many Years Have You Smoked Tobacco? 60 [email or web address] Information not available 09/11/2024 Have You Recently Traveled Abroad? No [email or web address] Information not available 09/11/2024 Do You Have Difficulty Walking Or Climbing Stairs? No [email or web address] Information not available 09/11/2024 Are You Currently In School? No [email or web address] Information not available 09/11/2024 Do You Have Any Dietary Restrictions? No [email or web address] Information not available 09/11/2024 Sex: Female Functional Status Question Answer Note LastModified by Organizat ion Details LastModified Time Do you use any illicit or recreational drugs? No Information not available 09/11/2024 Do you or have you ever used any other forms of tobacco or nicotine? No Information not available 09/11/2024 What is your level of alcohol consumption? None Information not available 09/11/2024 Are you currently employed? No [email or web address] Information not available 09/11/2024 Do you have transportation difficulties? No [email or web address] Information not available 09/11/2024 Are you able to walk? YESWOREST [email or web address] Information not available 09/11/2024 Do you have difficulty doing errands alone? No Information not available 09/11/2024 Are you able to care for yourself? Yes Information not available 09/11/2024 Do you have difficulty dressing or bathing? Yes [email or web address] Information not available 09/11/2024 What is your exercise level? Moderate [email or web address] Information not available 09/11/2024 Mental Status Question Answer Note LastModified by Organizat ion Details LastModified Time Do you feel stressed (tense, restless, nervous, or anxious, or unable to sleep at night)? [id number] [email or web address] Information not available 09/11/2024 Do you have difficulty concentrating, remembering or making decisions? No Information no t available 09/11/2024 Are you or have you been involved with bullying? No [email or web address] Information not available 09/11/2024 Family History Nothing Reported. Medical History Condition Response Hospitalizations N Emergency room visit since last appointm ent. N Gynecological History Statement/Question Response Menses Monthly N HPV Vaccine N Date of Last Pap Smear Most Recent Mammogram Age at First Child 20 Obstetrics History GPAL:G 0 P 0 0 0 0 Immunizations Vaccine Type Date Status Note Provider Nam e and Address Organization Details Recorded Time COVID-19 vaccine, vector-nr, rS-Ad26, PF, 0.5 mL 12/10/2020 completed Natalia Wayne NP [address] [place] [address], [address], [facility]. 09/11/2024 15:10:35 Past Encounters Encounter ID Performer Location Encounter Start Date Encounter Closed Date Diagnosis/Indication Diagnosis SNOMED-CT Code Diagnosis ICD10 Code Diagnosis Note [id number] Natalia Wayne NP [place] [phone] 09/11/2024 13:46:57 09/11/2024 16:07:37 Essential hypertension 82657664 I10 Carcinoma of colon, stage IV 028259890 C18.9 Hyperlipidemia 85925993 E78.5 Normal weight 43517098 Z 68.24 [id number] Natalia Wayne NP [place] [phone] 10/03/2024 10:23:08 10/03/2024 11:18:09 Essential hypertension 26884348 I10 Carcinoma of colon, stage IV 731341399 C18.9 Health Concerns Section Related Observation LastModified by Organization Detai ls LastModified Time None Recorded Concern Status LastModified by Organization Details LastModified Time None Recorded Advance Directives Directive N: Payers Insurance Date Sequence Insurance Name Policy Number Policy Christian Covered Member ID Christian Member ID Guarantor Name 01/01/2025 [place] [facility] Lashae Wyman [id number] Lashae Wyman 01/01/2025 1 [place] Lashae Wyman [id number] Lashae Wyman Notes Date Note Type Note Provider Name and Address Organization Details Recorded Time 09/11/2024 text/html Patient presents to establish care. Lives with her . 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 No real medical history until recently. Has not seen PCP in years. States that in June she had abdominal pain and vomiting and ultimately passed out and went to [facility]. They did a CT and found out [...] She is going to start chemo in [place] next month. She is going to have radiation in [place] after the chemo. She does have a [...] x 1 month. Natalia Wayne NP [address] [place], [address], [employer]. 09/13/2024 16:55:34 10/03/2024 text/html Patient presents for [...] pressure is normal. Natalia Wayne NP [address] [place], [address], [employer]. 10/04/2024 17:47:56 OBGyn Episode No OBEpisode recorded.
--- OUTSIDE RECORDS SUMMARY | 2025-03-14 12:46 | XMS_ITS | Encounter Summary ---
Author Organization Healthcare Address [address] [place] [address] Care Team Providers Care Tavern Operator Name Role Phone Natalia Wayne YVONNE Primary Care Provider [phone] Encounter Details Date Type Department Care Team [...] any time in the past 12 m [facility], were you homeless or living in a fpc (including now)? No 09/02/2024 Utilities Answer Date [...] PM EDT Appointment [facility] [address] [place] [phone] Manoj Fowler MD [address] [facility] [address] [place] [address] 04/22/2025 12:40 PM EDT Appointment [facility] [address] [place] [address] 04/22/2025 3:00 PM EDT Office Visit [facility] [address] [place] [phone] Joi Stewart MD [address] [facility] [address] [place] [address] 08/14/2025 10:00 AM EST Appointment [facility] [address] [facility] 5th Floor [address] [place] [address] 08/14/2025 11:00 AM EST Office Visit [facility] [address] [facility] 5th Floor [address] [place] [address] Hilary Cordova MD [address] [facility] [address] [place] [address] documented as of this encounter Visit Diagnoses Not on filedocumented in this encounter Additional Health Concerns Assessment Noted Time A fall risk assessment has been complete d for the patient 02/04/2025 2:31 PM EDT A Body Mass Index follow-up plan has been documented for the patient 02/13/2025 10:32 PM EDT documented as of this encounter Care Teams Tavern Operator Relationship Specialty Start Date End Date Natalia Wayne, YVONNE [address] [place] [address] PCP - General 12/10/24 documented as of this encounter
--- OUTSIDE RECORDS SUMMARY | 2025-03-14 12:46 | XMS_ITS ---
Author Organization [facility] Address [address] [place] [address] Care Team Providers Care Tile Setter Supervisor Name Role Phone Natalia Wayne APRN Primary Care Provider [phone] Active Problems Problem Noted Date Diagnosed Date [...] 5-FU (Adrucil) infusion - for home use ([facility] supplied) CADD 100ML Therapy Complete Joi Stewart MD 1 of 1 cycle started MitoMYcin + Fluorouracil Every 28 Days x 2 + XRT 12/17/19 25 12/13/2024 5-FU CHEMO INFUSION ([facility] SUPPLIED) CADD ORDERABLEmitoMYcin (Mutamycin) Other (See Comments) Joi Stewart MD Treatment not started Resolved Problems Problem Noted Date Diagnosed Date Resolved Date Large bowel obstruction 08/31/2024 120 01/2024
--- OUTSIDE RECORDS SUMMARY | 2025-03-14 12:46 | XMS_ITS | Encounter Summary ---
Author Organization [facility] Address [address] [place] [address] Care Team Providers Care Gas Meter Checker Name Role Phone Natalia Wayne YVONNE Primary Care Provider [phone] Reason for Referral * Imaging (Routine) - Pending Review Specialty Diagnoses / Procedures Referred By Contac t Referred To Contact Radiology Diagnoses Rectal cancer (CMS/HCC) Procedures CT Chest w IV Contrast Joi Stewart MD [address] [address] Phone: tel: fax: Referral ID Status Reason Start Date Expiration Date V isits Requested Visits Authorized [id number] Pending Review 02/13/2025 08/15/2026 1 1 * Imaging (Routine) - Pending Review Specialty Diagnoses / Procedures Referred By Lexii t Referred To Contact Radiology Diagnoses Rectal cancer (CMS/HCC) Procedures CT Abdomen Pelvis w IV Contrast Joi Stewart MD [address] [place] [address] Phone: tel: fax: Referral ID Status Reason Start Date Expiration Date V isits Requested Visits Authorized [id number] Pending Review 02/13/2025 08/15/2026 1 1 Encounter Details Date Type Department Care Team (Late st Contact Info) Description 02/13/2025 Orders Only [facility] [address] [place] [address] Cecilia Walters, RN [id number] Rectal cancer (CMS/HCC) (Primary Dx) [...] were you homeless or living in a care home (including now)? No 09/02/2024 Utilities Answer [...] 3:00 PM EDT Appointment [facility] [address] [place] [address] Manoj Fowler MD [address] [address] 04/22/2025 12:40 PM EDT Appointment [facility] CT [address] [place] [address] 04/22/2025 3:00 PM EDT Office Visit [facility] [address] [place] [phone] Joi Stewart MD [address] [facility] [address] [place] [address] 08/14/2025 10:00 AM EST Appointment [facility] Lab [address] [place] [address] 5th Floor [address], [address] [place] [address] 08/14/2025 11:00 AM EST Office Visit [facility] [address] [facility] 5th Floor Wing [address], [address] [place] [address] Hilary Cordova MD [address] [facility] [address] [place] [address] Scheduled Orders Name Type Priority Associated Diagnoses [...] documented as of this encounter Care Teams Gas Meter Checker Relationship Specialty Start Date End Date Natalia Wayne, YVONNE [address] [place] [address] PCP - General 12/10/24 documented as of this encounter
[2025-03-14] MEDS: SODIUM CHLORIDE 0.9% 10ML FLUSH SYRINGE 10 ML IV (12:50)
== END 2025-03-12 14:45 | disposition home or self-care (01) ==
LOC: INF 03-14 12:44
PROVIDERS: PCP Nurse Practitioner Family; Visit Provider Internal Medicine Medical Oncology
DX: Z51.11 Encounter for antineoplastic chemotherapy (principal); C20 Malignant neoplasm of rectum
CPT/HCPCS: 80053; 85025; 96411; 96413; 96415; 96416; 96417; J0640; J7060; J8540; J9190; J9263; Q0162

== ENCOUNTER 2025-03-26 08:43 | Outpatient (CLI) | payer MEDICARE, SELFPAY ==
--- OUTSIDE RECORDS SUMMARY | 2025-01-28 14:00 | XMS_ITS | Encounter Summary ---
Author Organization [facility] Address [address] [place] [address] Care Team Providers Care Internet And E Business Project Manager Name Role Phone Natalia Wayne YVONNE Primary Care Provider [phone] Encounter Details Date Type Department Care Team (Latest Contact Info) Description 01/28/2025 2:00 PM EDT - 01/28/2025 11:59 PM EDT Hospital Encounter [facility] [address] [place] [phone] Rectal cancer (CMS/HCC) (Primary Dx) Discharge Disposition: Home or Self Care Social History Tobacco Use Types Packs/Day Years Used Date Smoking Tobacco: Every Day Cigarettes 0.5 50.5 Started: 1975 Passive Smoke Exposure: Past Smokeless [...] any time in the past 12 m [facility], were you homeless or living in a [facility] (including now)? No 09/02/2024 Utilities Answer Date [...] Sign Reading Time Taken Comments Blood Pressure 146/77 01/28/2025 2:38 PM EDT Pulse 81 01/28/2025 2:38 PM EDT Temperature 37.1 C (98.8 F) 01/28/2025 2:38 PM EDT Respiratory Rate 17 01/28/2025 2:38 PM EDT Oxygen Saturation 98% 01/28/2025 2:38 PM EDT Inhaled Oxygen Concentration - - Weight 65.5 kg (144 lb 6.4 oz) 01/28/2025 2:38 P M EDT Height 170.2 cm (5' 7 ) 01/28/2025 2:38 PM EDT Body Mass Index 22.62 01/28/2025 2:38 PM EDT documented in this encounter Medications [...] 5 08/08/2024 documented as of this encounter Plan of Treatment Upcoming Encounters Date Type Department Care Team (Late st Contact Info) Description 04/16/2025 3:00 PM EDT Appointment [facility] [address] [place] [address] Manoj Fowler MD [address] [facility] [address] [place] [address] 04/22/2025 12:40 PM EDT Appointment [facility] [address] [place] [address] 04/22/2025 3:00 PM EDT Office Visit [facility] [address] [place] [address] Joi Stewart MD [address] [facility] [address] [facility] [address] [place] [address] 08/14/2025 10:00 AM EST Appointment [facility] [address] [facility] 5th Floor [address] [place] [address] 08/14/2025 11:00 AM EST Office Visit [facility] [address] [facility] 5th Floor [address] [place] [address] Hilary Cordova MD [address] [facility] [address] [place] [address] documented as of this encounter Visit Diagnoses Diagnosis Rectal cancer (CMS/HCC)- Primary Malignant neoplasm of rectum documented in this encounter Additional Health Concerns Assessment Noted Time A fall risk assessment has been complete d for the patient 01/28/2025 2:35 PM EDT A Body Mass Index follow-up plan has been documented for the patient 01/21/2025 4:15 PM EDT documented as of this encounter Care Teams Internet And E Business Project Manager Relationship Specialty Start Date End Date Natalia Wayne, FUEL ASSEMBLER [address] [place] [address] PCP - General 12/10/24 documented as of this encounter
--- OUTSIDE RECORDS SUMMARY | 2025-02-04 09:12 | XMS_ITS | Encounter Summary ---
Author Organization [facility] Address [address] [place] [address] Care Team Providers Care Research Biostatistician Name Role Phone Natalia Wayne YVONNE Primary Care Provider [phone] Reason for Referral * Imaging (Routine) - Closed Specialty Diagnoses / Procedures Referred By Lexii moody Referred To Contact Radiology Diagnoses Rectal cancer (CMS/HCC) Procedures MR Pelvis w and wo IV Contrast Manoj Fowler MD [address] [address] Phone: tel: fax: Referral ID Status Reason Start Date Expiration Date Visits Re quested Visits Authorized [id number] Closed 09/24/2024 03/26/2026 1 1 Reason for Visit * Imaging (Routine) - Closed Specialty Diagnoses / Procedures Referred By Lexii moody Referred To Contact Radiology Diagnoses Rectal cancer (CMS/HCC) Procedures MR Pelvis w and wo IV Contrast Manoj Fowler MD [address] [address] Phone: tel: fax: Referral ID Status Reason Start Date Expiration Date Visits Re quested Visits Authorized [id number] Closed 09/24/2024 03/26/2026 1 1 Encounter Details Date Type Department Care Team (Latest Contact Info) Description 02/04/2025 9:12 AM EDT - 02/04/2025 11:59 PM EDT Hospital Encounter [facility] [address] [place] [address] Rectal cancer ([facility]) Discharge Disposition: Home or Self Care Social [...] any time in the past 12 m [facility], were you homeless or living in a halfway (including now)? No 09/02/2024 Utilities Answer Date Recorded In the past 12 months has e [employer], gas, oil, or water [employer] threatened to shut off services in your [...] EDT Appointment [facility] End[facility] [address] [place] [address] Manoj Fowler MD [address] [place] [address] 04/22/2025 12:40 PM EDT Appointment [facility] [address]nd [place] [address] 04/22/2025 3:00 PM EDT Office Visit [facility] [address] [place] [address] Joi Stewart MD [address] [facility] [address] [place] [address] 08/14/2025 10:00 AM EST Appointment [facility] Vascular Lab [address] [facility] 5th Floor [address] [place] [address] 08/14/2025 11:00 AM EST Office Visit [facility]ascular Clinic [address] [facility] 5th Floor [address], [address] [place] [address] Hilary Cordova MD [address] [facility] [address] [place] [address] documented as of this encounter Procedures Procedure [...] Pretreatment Tumor staging: T3a N+ Prior treatment: GROWTH MEDIA MIXER MUSHROOM completed 01/29 TECHNIQUE: Multiplanar, multisequence MR imaging [...] Pretreatment Tumor staging: T3a N+ Prior treatment: GROWTH MEDIA MIXER MUSHROOM completed 01/29 TECHNIQUE: Multiplanar, multisequence MR imaging of the pelvis was performed on a 3Tmagnet both before and after administration of 6.5 mL of intravenousGadavist contrast. COMPARISON: 08/06/2024: MR pelvis with and without contrast FINDINGS: Treated primary tumor characteristics: Significantly decreased size of thepolypoid lesion in the upper rectum with minimal residual disease. New X7sgumfldu hypointense T2 scarring along the left/posterior rectum at thesite of primary tumor. Subtle residual nodular focus of hazy B9snbfkrvdvenh signal along the mucosal/submucosal margin of the left upperrectum at the site of primary tumor (series 7, images 29/30 and series 8,images 43/45), with peripheral T2 dark scarring along the serosal margin.This focus demonstrates hyperenhancement similar to prior as well asrestricted diffusion (series 13, image 28 and series 10/11, hakegu72/30). An area of T2 intermediate signal along [...] documented as of this encounter Care Teams Research Biostatistician Relationship Specialty Start Date End Date Natalia Wayne APRN [address] [place] [address] PCP - General 12/10/24 documented as of this encounter
--- OUTSIDE RECORDS SUMMARY | 2025-02-04 14:00 | XMS_ITS | Encounter Summary ---
Author Organization [facility] Address [address] [place] [address] Care Team Providers Care Boilermaker Fitter Name Role Phone Natalia Wayne YVONNE Primary Care Provider [phone] Reason for Referral * Imaging (Routine) - Pending Review Specialty Diagnoses / Procedures Referred By Lexii moody Referred To Contact Gastroenterology Diagnoses Rectal cancer (CMS/HCC) Procedures Flexible Sigmoidoscopy Manoj Fowler MD [address] [facility] [address] [place] [address] Phone: tel: fax: Referral ID Status Reason Start Date Expiration Date Visits Requested Visits Authorized [id number] Pending Review Specialty Services Required 02/04/2025 08/06/2026 1 1 Reason for Visit * Reason Comments Follow-up Rectal Cancer Encounter Details Date Type Department Care Team (Latest Contact Info) Description 02/04/2025 2:00 PM EDT Office Visit [facility] Multidisciplinary Oncology Clinic [address] [place] [address] Manoj Fowler MD [id number] [place] [address] Rectal cancer (CMS/HCC) (Primary Dx) Social History Tobacco Use Types Packs/Day Years [...] any time in the past 12 m [facility], were you homeless or living in a senior living (including now)? No 09/02/2024 Utilities Answer Date Recorded In the past 12 months has th e [employer], gas, oil, or water company threatened to shut off services in your home? No 09/02/2024 Comments No Sex and Gender Information Value Date Recorded Sex Assigned at Not on file Legal Sex Female 2:42 PM EDT Gender Identity Not on file Sexual Orientation Not on file documented as of this encounter Last Filed Vital Signs Vital Sign Reading Time Taken Comments Blood Pressure 127/75 02/04/2025 2:30 PM EDT Pulse 100 02/04/2025 2:30 PM EDT Temperature 36.6 C (97.8 F) 02/04/2025 2:30 PM EDT Respiratory Rate - - Oxygen Saturation 97% 02/04/2025 2:30 PM EDT Inhaled Oxygen Concentration - - Weight 62.6 kg (138 lb) 02/04/2025 2:30 PM EDT Height 170.2 cm (5' 7 ) 02/04/2025 2:30 PM EDT Body Mass Index 21.61 02/04/2025 2:30 PM EDT documented in this encounter Miscellaneous Notes * Progress Notes - Sreekanth Bowen - 02/04/2025 2:00 PM EDT [facility] Colon & Rectal Surgery 02/04/2025 Chief Complaint: Rectal cancer (CMS/HCC) [C20] Cancer Staging Rectal cancer (CMS/HCC) Staging form: Colon and Rectum, AJCC 8th Edition - Clinical stage from 08/06/2024: Stage IIIB (cT3, cN1, cM0) - Signed by Manoj Fowler MD on 08/13/2024 HPI: Lashae Wyman is a 74 y.o. 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 [facility] plan was CLARIBEL. She has recently completed radiation and 28 days of 5FU and anticipate 4m of FOLFOX to follow (anticipate w/ Billy Yip, but has been following w/ Terry at [facility] She notes that she feels fatigued and weak with 20 pound weight loss since start of therapy. She endorses occasional nausea w/o vomiting. She notes that she has had 1000 mL of ostomy output that has thickened since taking imodium 2x per day. She endorses some burning around ostomy site. ROS: A complete 14 point review of systems was done with the patient. These are all negative with the exception of what is noted in the HPI. Physical Exam: Vitals: 02/04/25 1430 BP: 127/75 Pulse: 100 Temp: 36.6 ??C (97.8 ??F) SpO2: 97% Body mass index is 21.61 kg/m??. GEN: NAD HEENT: NCAT, EOMI RESP: Equal bilateral chest rise, normal work of breathing CV: RRR, appears well perfused ABD: Soft, nontender, nondistended EXT: No gross deformities MSK: Full ROM in BL UE NEURO: No focal deficits, AOx3 PSYCH: Normal mood and affect PERIANAL/PERINEUM: n/a LAURA: n/a LABORATORIES AND IMAGING STUDIES: I personally reviewed all the laboratory examinations and imaging studies below: Lab Results Component Value Date WBC 7.11 01/21/2025 RBC 3.53 (L) 01/21/2025 HGB 11.8 01/21/2025 HCT 34.1 01/21/2025 MCV 97 01/21/2025 MCHC 34.6 01/21/2025 RDW 14.9 (H) 01/21/2025 PLT 238 01/21/2025 MPV 9.1 01/21/2025 Lab Results Component Value Date BUN 23 01/21/2025 CL 103 01/21/2025 NA 136 01/21/2025 K 3.6 01/21/2025 TP 5.9 (L) 01/21/2025 AST 11 01/21/2025 ALT 10 01/21/2025 Lab Results Component Value Date CEA <1.8 12/24/2024 CEA <1.8 07/30/2024 CEA <1.8 06/11/2024 I visualized the recent imaging and discussed the current radiology findings with the patient in detail and answered all questions. === 10/21/24 === CT OUTSIDE IMAGES === 02/04/25 === MR PELVIS W AND WO IV CONTRAST - Narrative - CLINICAL INDICATION: Rectal Cancer RESTAGING. Pretreatment Tumor staging: T3a N+ Prior treatment: ECONOMIST RESEARCH ASSISTANT completed 01/29 TECHNIQUE: Multiplanar, multisequence MR imaging [...] of correlate on additional sequences, lack of restricteddiffusion, and absence of tumor involving the anterior [...] fatty marrow replacement compatible with postradiation change. - Impression - Since 08/06/2024, post treatment primary tumor assessment [...] Johann Chopra MD on 02/04/2025 12:47 PM Assessment/Plan Problem List Items Addressed This Visit Rectal cancer (CMS/HCC) - Primary Relevant Orders Flexible Sigmoidoscopy Flex sig for reassessment Proceed with FOLFOX (4m) RTC in April 2025 for restaging and additional surgical planning Sreekanth Bowen MS3 Cosigned by Manoj Fowler MD at 02/13/2025 10:32 PM EDT Associated attestation - Manoj Fowler MD - 02/13/2025 10:32 PM EDT I saw and evaluated the patient with the medical/RETAIL SUPERVISOR/PA student. I discussed the case with the medical/RETAIL SUPERVISOR/PA student and agree with the findings and plan as documented. I personally performed the Examand Medical Decision Making. documented in this encounter Plan of Treatment Upcoming Encounters Date Type Department Care Team (Late st Contact Info) Description 04/16/2025 3:00 PM EDT Appointment [facility] [address] [place] [address] Manoj Fowler MD [address] [place] [address] 04/22/2025 12:40 PM EDT Appointment [facility] [address] [place] [address] 04/22/2025 3:00 PM EDT Office Visit [facility] Multidisciplinary Oncology Clinic [address] [place] [address] Joi Stewart MD [address] [place] [address] 08/14/2025 10:00 AM EST Appointment [facility] Vascular Lab [address] [facility] 5th Floor [address] [place] [address] 08/14/2025 11:00 AM EST Office Visit [facility] Comprehensive Vascular Clinic [address] [facility] 5th Floor [address] [place] [address] Hilary Cordova MD [address] [place] [address] Scheduled Orders Name Type Priority Associated Diagnoses Orde r Schedule Flexible Sigmoidoscopy Endoscopy Routine Rectal cancer (CMS/HCC) Expected: 02/04/2025, Expires: 02/04/2026 documented as of this encounter Visit Diagnoses [...] documented as of this encounter Care Teams Boilermaker Fitter Relationship Specialty Start Date End Date Natalia Wayne, FORENSIC PHOTOGRAPHER [address] [place] [address] PCP - General 12/10/24 documented as of this encounter
--- OUTSIDE RECORDS SUMMARY | 2025-02-04 14:40 | XMS_ITS | Encounter Summary ---
Author Organization [facility] Address [address] [place] [address] Care Team Providers Care Corrugated Box Machine Operator Name Role Phone Natalia Wayne YVONNE Primary Care Provider [phone] Reason for Referral * Consultation (Routine) - Authorized Specialty Diagnoses / Procedures Referred By Lexii moody Referred To Contact Medical Oncology Diagnoses Rectal cancer (CMS/HCC) Joi Stewart MD [address] [facility] Tete Baker [address] [address] Phone: tel: fax: Referral ID Status Reason Start Date Expiration Date Visits Requested Visits Authorized [id number] Authorized Specialty Services Required 02/04/2025 08/06/2026 1 1 Scheduling Instructions Refer to Dr Yip in [place] Reason for Visit * Reason Comments Follow-up Rectal Cancer Encounter Details Date Type Department Care Team (Late st Contact Info) Description 02/04/2025 2:40 PM EDT Office Visit [facility] Multidisciplinary Oncology Clinic [address] [place] [address] Joi Stewatr MD 800 [facility] Samuel [address] [address] Rectal cancer (CMS/HCC) (Primary Dx) [...] any time in the past [address] [facility], were you homeless or living in a half-way (including now)? No 09/02/2024 Utilities Answer Date [...] course XRT). Pt will receive XRT at [place] but 5FU civi through due to insurance restrictions (insurance would not approve 5FU civi to be given at [place], but we were able to get coverage for 5FU civi at ). After completion of chemoXRT, would need 4 months FOLFOX to complete total neoadjuvant therapy for clinical stage III rectal cancer prior to surgical resection--depending on tolerance. 12/25/24: first XRT in [place] 12/24/24: start concurrent 5FU infusion with XRT (5FU civi 225mg/m2 iv over 24 hrs daily on days 1-7for 5 weeks concurrent with XRT--long course XRT). Pt will receive XRT at [place] but 5FU civi through due to insurance restrictions (insurance would not approve 5FU civi to be given at [place], but we were able to get coverage [...] medical oncologist close to her home in [place]. D/w Dr. Yip by phone after appt. Follow up 04/16/25: flex sig sched with Dr. Manoj Fowler I will plan to see her back mid April 2025 after flex sig, assuming that she completes FOLFOX neoadjuvant chemotherapy with Dr. Yip in [place]. She would be due for repeat CT c/a/p with contrast for rectal cancer staging April 2025, can get those scans done here at or at [place]. Patient and family encouraged to call if any problems or concerns prior to next visit. Dr. Fowler appt early January Radiation oncologist Shayy Ovalle. Dr. Mariia Marks phone [phone] >30 minutes was spent on this encounter; including preparing to see the patient, which involved review/interpretation of diagnostics and reports; obtaining and/or reviewing separately obtained history; performing appropriate physical exam; ordering/scheduling medications, tests or procedures; communicating findings and counseling/educating the patient, family and/or caregiver; documentation inEMR; and care coordination. Joi Stewart MD Division of Medical Oncology [facility] Treatment Plans Name Type Plan Dates Plan [...] refused to cover infusion 5FU) 10/21/24-10/24/24: hospitalized [place] with marked dehydration from severe diarrhea due [...] course XRT). Pt will receive XRT at [place] but 5FU civi through due to insurance restrictions (insurance would not approve 5FU civi to be given at [place], but we were able to get coverage [...] concurrent 5FU civi with XRT (XRT in [place]) on 01/28/25 She is here for follow [...] PM EDT Appointment [facility] [address] [place] [address] Manoj Fowler MD [address] [facility] [address] [place] [address] 04/22/2025 12:40 PM EDT Appointment [facility] [address] [place] [address] 04/22/2025 3:00 PM EDT Office Visit [facility] [address] [place] [address] Joi Stewart MD 800 [facility] Tete Baker [facility] [address] [place] [address] 08/14/2025 10:00 AM EST Appointment [facility] [address] [facility] 5th Floor [address] [place] [address] 08/14/2025 11:00 AM EST Office Visit [facility] [address] [facility] 5th Floor [address] [place] [address] Hilary Cordova MD [address] [facility] [address] [place] [address] Scheduled Orders Name Type Priority Associated Diagnoses [...] documented as of this encounter Care Teams Corrugated Box Machine Operator Relationship Specialty Start Date End Date Natalia Wayne APRN [address] [place] [address] PCP - General 12/10/24 documented as of this encounter
[2025-03-26] VITALS (7 sets, daily range): BP systolic 155–171; BP diastolic 64–77; PULSE 53–61; RESP 18; TEMP 36.8; O2SAT 99
--- OUTSIDE RECORDS SUMMARY | 2025-03-26 08:47 | XMS_ITS ---
Author Organization [facility] Address [address] [place] [address] Care Team Providers Care Engineering Technical Writer Name Role Phone Natalia Wayne APRN Primary [...] 5-FU (Adrucil) infusion - for home use ([facility] supplied) CADD 100ML Therapy Complete Joi Stewart MD 1 of 1 cycle started MitoMYcin + Fluorouracil Every 28 Days x 2 + XRT 12/17/19 25 12/13/2024 5-FU CHEMO INFUSION ([facility] SUPPLIED) CADD ORDERABLEmitoMYcin (Mutamycin) Other (See Comments) Joi Stewart MD Treatment not started Resolved Problems Problem Noted Date Diagnosed Date Resolved Date Large bowel obstruction 08/31/2024 120 01/2024
--- OUTSIDE RECORDS SUMMARY | 2025-03-26 08:47 | XMS_ITS | Encounter Summary ---
Author Organization [facility] Address [address] [place] [address] Care Team Providers Care Poly Operator Name Role Phone Natalia Wayne YVONNE Primary Care Provider [phone] Encounter Details Date Type Department Care Team [...] any time in the past 12 m [facility], were you homeless or living in a retirement (including now)? No 09/02/2024 Utilities Answer Date [...] PM EDT Appointment [facility] [address] [place] [address] Manoj Fowler MD [address] [facility] [address] [place] [address] 04/22/2025 12:40 PM EDT Appointment [facility] [address] [place] [address] 04/22/2025 3:00 PM EDT Office Visit [facility] [address] [place] [address] Joi Stewart MD [address] [facility] [address] [place] [address] 08/14/2025 10:00 AM EST Appointment [facility] Vascular Lab [address] [facility] 5th Floor Wing [address], [address] [place] [address] 08/14/2025 11:00 AM EST Office Visit [facility] [address] [facility] 5th Floor Wing [address], [address] [place] [address] Hilary Cordova MD [address] [facility] [address] [place] [address] documented as of this encounter Visit Diagnoses Not on filedocumented in this encounter Additional Health Concerns Assessment Noted Time A fall risk assessment has been complete d for the patient 02/04/2025 2:31 PM EDT A Body Mass Index follow-up plan has been documented for the patient 02/13/2025 10:32 PM EDT documented as of this encounter Care Teams Poly Operator Relationship Specialty Start Date End Date Natalia Wayne, YVONNE [address] [place] [address] PCP - General 12/10/24 documented as of this encounter
--- OUTSIDE RECORDS SUMMARY | 2025-03-26 08:47 | XMS_ITS | Data Portability ---
Author Organization Niko [facility] Address [address] [place] [address] Assessment Encounter Date Assessment Date Assessment LastModified [...] Orders lisinopril 10 mg tablet 2024 025 [facility], [address] [place] [address], [address], 5 12:42:46 lisinopril 10 mg tablet 2023 024 [facility], [address] [place] [address], [address], 15:41:55 Patient TargetsNo targets recorded. Patient Instructions Encounter Date Encounter Id Patient Instructions Last Modified By Organization Details Last Modified Time 09/11/2024 [id number] high blood pressure: care instructions [facility] Not available 09/11/2024 15:20:14 learning about high blood pressure Not available 09/11/2024 15:20:14 high cholesterol : care instructions [facility] Not available 09/13/2024 16:54:02 Reason for Referral None Reported. Results Created Date Observation Date Name Description Value Unit Range Abnormal Flag Note LastModifiedBy Organization Detail LastModifiedTime 10/21/19 25 10/21/2024 HCV antib britney servando alfaro, reai ngful use set HCV Ab normal Not Available [facility] (Lab) [address], [place], [address], 10/21/2024 15:09:59 10/21/19 25 10/21/2024 CT, chest , w/o contr ast No observ ation record ed. [address] [facility] [address] [place], [address], 10/21/2024 15:21:14 10/21/19 25 10/21/2024 CT, abdom en + pelvi s, w/o contr ast No observ ation record ed. [address] [facility] [address], [place], [address], 10/21/2024 15:23:15 10/22/19 25 10/21/2024 elect dominic parrgr am, routi ne ECG, 12 leads min; inter preta tion and repor t (PROC ) No observ ation record ed. [address] [facility] [address], [place], [address], 10/23/2024 10:18:59 11/14/19 25 11/14/2024 MR, angio gram, abdom en, w/wo contr ast No observ ation record ed. [address] [facility] [address], [place], [address], 11/21/2024 10:32:46 Result Notes None recorded. Problems Name Problem SNOMED Code Status Onset Date Resolution Date Notes Provider Name and Address Organization Details Recorded Time Essential hypertension 76239266 Active 2023 Natalia Wayne, STACEY [address] [place], [address], [employer] 16:54:24 Carcinoma of colon, stage IV 049705655 Active 2023 Natalia Wayne NP [address] [place], [address], [employer] 16:54:23 Hyperlipidemia 16297732 Active 2023 Natalia Wayne NP [address] [place], [address], [employer] 16:54:26 Problem Notes None recorded. Medical [...] Updated DateTime 5 170.18 cm 24.5 kg/m2 74052.1 1 g 75 /min 97 % 97 % 144 mm[Hg] 86 mm[Hg] 163 mm[Hg] 76 mm[Hg] 139 mm[Hg] 84 mm[Hg] Oksana Reddy [facility]o [facility]o. 5 10:44:34 Date Recorded Body height Body mass index (BMI) Body weight Heart rate Oxygen saturation Oxygen saturation in Arterial blood by Pulse oximetry Systolic blood pressure Diastolic blood pressure Systolic blood pressure Diastolic blood pressure Systolic blood pressure Diastolic blood pressure Provider Name and Address Organization Details Last Updated DateTime 4 170.18 cm 24.3 kg/m2 27513.9 2 g 72 /min 97 % 97 % 177 mm[Hg] 84 mm[Hg] 182 mm[Hg] 82 mm[Hg] 174 mm[Hg] 86 mm[Hg] Oksana Reddy Niko Niko. 4 14:56:23 Social History Question Answer Notes LastModified by Organizat ion Details LastModified Time Tobacco Smoking Status Current Every Day Smoker [facility] 09/11/2024 14:56:35 Do You Have An Advance Directive? No Information n ot available 09/11/2024 Is Your Home Air Conditioned? Yes Information not available 09/11/2024 Do You Wear A Helmet When Biking? No [email or web address] Information not available 09/11/2024 Are You Blind Or Do You Have Difficulty Seeing? No [email or web address] Information n ot available 09/11/2024 What Is Your Level Of Caffeine Consumption? Moderate [email or web address] Information not available 09/11/2024 What Type Of Supervisor Beet End Do You Use? None [email or web address] Information not available 09/11/2024 In The 14 Days Before Symptom Onset, Have You Had Close Contact With A Laboratory-confirm ed COVID-19 While That Case Was Ill? No [email or web address] Information n ot available 09/11/2024 In The [...] Do You Have Serious Difficulty Hearing? No [email or web address] Information not available 09/11/2024 What Type Of Diet Are You Following? REGULAR [email or web address] Information n ot available 09/11/2024 How Many Days Of Moderate To Strenuous Exercise, Like A Brisk Walk, Did You Do In The Last 7 Days? 3 [email or web address] Information not available 09/11/2024 Are There Any Guns Present In Your Home? Yes [email or web address] Information not available 09/11/2024 Which Of Your Hands Is Dominant? Right Information n ot available 09/11/2024 Do You Have A Medical Power Of Residential Substance Abuse Counselor? No [email or web address] Information not available 09/11/2024 What Was The Date Of Your Most Recent Tobacco Screening? 10/03/2024 [email or web address] Information not available 10/03/2024 Do You Have Any Pets? Yes [email or web address] Information not available 09/11/2024 What Is Your Relationship Status? Information not available 09/11/2024 Have You Repeated Any Grades? No [email or web address] Information not available 09/11/2024 Do You Use Your Seat Belt Or Car Seat Routinely? Yes [email or web address] Information not available 09/11/2024 Are You Sexually Active? No [email or web address] Information not available 09/11/2024 Do You Have Any Siblings? Shae Mcfadden Information not available 09/11/2024 Do You Have Smoke And Carbon Monoxide Detectors In Your Home? No [email or web address] Information not available 09/11/2024 At What Age Did You Start Smoking Tobacco? 17 Information not available 09/11/2024 Are You Passively Exposed To Smoke? Yes [email or web address] Information no t available 09/11/2024 Are There Any Smokers In Your House? Yes [email or web address] Information not available 09/11/2024 How Much Tobacco Do You Smoke? 0.5 PPD [email or web address] Information not available 09/11/2024 Do You Participate In Social Media? Yes [email or web address] Information not available 09/11/2024 Do You Use Sunscreen Routinely? No [email or web address] Information not available 09/11/2024 Has Tobacco Cessation Counseling Been Provided? No [email or web address] Information not available 09/11/2024 How Many Years Have You Smoked Tobacco? 60 [email or web address] Information not available 09/11/2024 Have You Recently Traveled Abroad? No [email or web address] Information not available 09/11/2024 Do You Have Difficulty Walking Or Climbing Stairs? No [email or web address] Information not available 09/11/2024 Are You Currently In School? No [email or web address] Information not available 09/11/2024 Do You Have Any Dietary Restrictions? No [email or web address] Information not available 09/11/2024 Sex: Female Functional Status Question Answer Note LastModified by Organizat ion Details LastModified Time Do you use any illicit or recreational drugs? No [email or web address] Information not available 09/11/2024 Do you or have you ever used any other forms of tobacco or nicotine? No [email or web address] Information not available 09/11/2024 What is your level of alcohol consumption? None [email or web address] Information not available 09/11/2024 Are you currently employed? No [email or web address] Information not available 09/11/2024 Do you have transportation difficulties? No [email or web address] Information not available 09/11/2024 Are you able to walk? YESWOREST [email or web address] Information not available 09/11/2024 Do you have difficulty doing errands alone? No [email or web address] Information not available 09/11/2024 Are you able to care for yourself? Yes Information not available 09/11/2024 Do you have difficulty dressing or bathing? Yes [email or web address] Information not available 09/11/2024 What is your exercise level? Moderate [email or web address] Information not available 09/11/2024 Mental Status Question Answer Note LastModified by Organizat ion Details LastModified Time Do you feel stressed (tense, restless, nervous, or anxious, or unable to sleep at night)? HD9013-0 [email or web address] Information not available 09/11/2024 Do you have difficulty concentrating, remembering or making decisions? No [email or web address] Information no t available 09/11/2024 Are you or have you been involved with bullying? No [email or web address] Information not available 09/11/2024 Family History Nothing [...] 0.5 mL 12/10/2020 completed Natalia Wayne NP [address] [place] [address], [address], [facility] [employer] 09/11/2024 15:10:35 Past Encounters Encounter ID Performer Location Encounter Start Date Encounter Closed Date Diagnosis/Indication Diagnosis SNOMED-CT Code Diagnosis ICD10 Code Diagnosis Note [id number] Natalia Wayne NP [place] [phone] 09/11/2024 13:46:57 09/11/2024 16:07:37 Essential hypertension 67226061 I10 Carcinoma of colon, stage IV 619759707 C18.9 Hyperlipidemia 61173933 E78.5 Normal weight 99915750 Z 68.24 [id number] Natalia Wayne NP [place] [phone] 10/03/2024 10:23:08 10/03/2024 11:18:09 Essential hypertension 78702050 I10 Carcinoma of colon, stage IV 195143660 C18.9 Health Concerns Section Related Observation LastModified by Organization Detai ls LastModified Time None Recorded Concern Status LastModified by Organization Details LastModified Time None Recorded Advance Directives Directive N: Payers Insurance Date Sequence Insurance Name Policy Number Policy Christian Covered Member ID Christian Member ID Guarantor Name 01/01/2025 [place]: [employer] [facility] Lashae Wyman [id number] Lashae Wyman 01/01/2025 1 [place] Lashae Wyman [id number] Lashae Wyman Notes Date Note Type Note Provider Name and Address Organization Details Recorded Time 09/11/2024 text/html Patient presents to establish care. Lives with her . 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 No real medical history until recently. Has not seen PCP in years. States that in June she had abdominal pain and vomiting and ultimately passed out and went to [facility]. They did a CT and found out [...] She is going to start chemo in [place] next month. She is going to have radiation in [place] after the chemo. She does have a [...] x 1 month. Natalia Wayne NP [address] [place], [address], [employer] 09/13/2024 16:55:34 10/03/2024 text/html Patient presents for [...] pressure is normal. Natalia Wayne NP [address] [place], [address], [employer] 10/04/2024 17:47:56 OBGyn Episode No OBEpisode recorded.
--- OUTSIDE RECORDS SUMMARY | 2025-03-26 08:47 | XMS_ITS | Encounter Summary ---
Author Organization Healthcare Address [address] [place] [address] Care Team Providers Care Auto Painter Helper Name Role Phone Pcp, No Primary Care Provider Natalia Hector APRN Primary Care Provider [phone] Encounter Details Date Type Department Care Team (Late st Contact Info) Description 11/14/2024 Orders Only External Location [address] [place] [address] Provider, External Social History Tobacco Use Types Packs/Day Years Used Date Smoking Tobacco: Every Day Cigarettes 0.5 50.5 Started: 1975 Smokeless Tobacco: Never Alcohol Use [...] PM EDT Appointment [facility] [address] [place] [address] Manoj Fowler MD [address] [facility] [address] [place] [address] 04/22/2025 12:40 PM EDT Appointment [facility] [address] [place] [address] 04/22/2025 3:00 PM EDT Office Visit [facility] [address] [place] [phone] Joi Stewart MD [address] [facility] Tete Baker [facility] [address] [place] [address] 08/14/2025 10:[address] [facility] [address] [facility] 5th Floor [address] [place] [address] 08/14/2025 11:00 AM EST Office Visit [facility] [address] [facility] 5th Floor [address] [place] [address] Hilary Cordova MD [address] [facility] [address] [place] [address] documented as of this encounter [...] documented as of this encounter Care Teams Auto Painter Helper Relationship Specialty Start Date End Date Pcp, [place] [address] PCP - General Family Medicine 06/11/24 12/09/24 Natalia Wayne APRN [address] [place] [address] PCP - General 12/10/24 documented as of this encounter
--- OUTSIDE RECORDS SUMMARY | 2025-03-26 08:47 | XMS_ITS | Encounter Summary ---
Author Organization [facility] Address [address] [place] [address] Care Team Providers Care Lead Net Software Developer Name Role Phone Natalia Wayne YVONNE Primary Care Provider [phone] Encounter Details Date Type Department Care Team [...] in the past 12 m [facility], were you homeless or living in [...] PM EDT Appointment [facility] [address] [place] [phone] Manoj Fowler MD [address] [facility] [address] [place] [address] 04/22/2025 12:40 PM EDT Appointment [facility] [address] [place] [address] 04/22/2025 3:00 PM EDT Office Visit [facility] [address] [place] [phone] Joi Stewart MD 800 [facility] Tete Baker [address] [place] [address] 08/14/2025 10:00 AM EST Appointment [facility] [address] [facility] 5[address] Floor [address] [place] [address] 08/14/2025 11:00 AM EST Office Visit [facility] [address] [facility] 5th Floor [address] [place] [address] Hilary Cordova MD [address] [facility] [address] [place] [address] documented as of this encounter Visit Diagnoses Not on filedocumented in this encounter Additional Health Concerns Assessment Noted Time A fall risk assessment has been complete d for the patient 01/28/2025 2:35 PM EDT A Body Mass Index follow-up plan has been documented for the patient 01/21/2025 4:15 PM EDT documented as of this encounter Care Teams Lead Net Software Developer Relationship Specialty Start Date End Date Natalia Wayne, YVONNE [address] [place] [address] PCP - General 12/10/24 documented as of this encounter
--- OUTSIDE RECORDS SUMMARY | 2025-03-26 08:47 | XMS_ITS | Encounter Summary ---
Author Organization [facility] Address [address] [place] [address] Care Team Providers Care Special Tax Auditor Name Role Phone Natalia Wayne YVONNE Primary Care Provider [phone] Reason for Referral * Imaging (Routine) - Pending Review Specialty Diagnoses / Procedures Referred By Contac t Referred To Contact Radiology Diagnoses Rectal cancer (CMS/HCC) Procedures CT Chest w IV Contrast Joi Stewart MD [address] [address] Phone: tel: fax: Referral ID Status Reason Start Date Expiration Date V isits Requested Visits Authorized [id number] Pending Review 02/13/2025 08/15/2026 1 1 * Imaging (Routine) - Pending Review Specialty Diagnoses / Procedures Referred By Lexii t Referred To Contact Radiology Diagnoses Rectal cancer (CMS/HCC) Procedures CT Abdomen Pelvis w IV Contrast Joi Stewart MD [address] [place] [address] Phone: tel: fax: Referral ID Status Reason Start Date Expiration Date V isits Requested Visits Authorized [id number] Pending Review 02/13/2025 08/15/2026 1 1 Encounter Details Date Type Department Care Team (Late st Contact Info) Description 02/13/2025 Orders Only [facility] [address] [place] [address] Cecilia Walters, RN [id number] Rectal cancer (CMS/HCC) (Primary Dx) [...] 3:00 PM EDT Appointment [facility] [address] [place] [address] Manoj Fowler MD [address] [address] 04/22/2025 12:40 PM EDT Appointment [facility] [address] [place] [address] 04/22/2025 3:00 PM EDT Office Visit [facility] [address] [place] [phone] Joi Stewart MD [address] [facility] [address] [place] [address] 08/14/2025 10:00 AM EST Appointment [facility] [address] [place] [address] 5th Floor [address] [place] [address] 08/14/2025 11:00 AM EST Office Visit [facility] [address] [facility] 5th Floor [address] [place] [address] Hilary Cordova MD [address] [facility] [address] [place] [address] Scheduled Orders Name Type Priority Associated Diagnoses [...] documented as of this encounter Care Teams Special Tax Auditor Relationship Specialty Start Date End Date Natalia Wayne, YVONNE [address] [place] [address] PCP - General 12/10/24 documented as of this encounter
--- OUTSIDE RECORDS SUMMARY | 2025-03-26 08:47 | XMS_ITS | Clinical Summary ---
Author Organization [facility] Address [address] [place] [address] Care Team Providers Care Log Driver Name Role Phone Natalia Wayne YVONNE Primary Care Provider [phone] Allergies No known active allergies Medications rosuvastatin [...] Orders Only [facility] [address] [place] [address] Cecilia Walters, RN Rectal cancer (CMS/HCC) (Primary Dx) 02/04/2025 2:40 PM EDT Office Visit [facility] [address] [place] [address] Joi Stewart MD Rectal cancer (CMS/HCC) (Primary Dx) 02/04/2025 2:00 PM EDT Office Visit [facility] [address] [place] [address] Manoj Fowler MD Rectal cancer (CMS/HCC) (Primary Dx) 02/04/2025 9:12 AM EDT - 02/04/2025 11:59 PM EDT Hospital Encounter [facility] [address] [place] [address] Rectal cancer (CMS/HCC) Discharge Disposition: Home or Self Care 02/04/2025 Travel 01/28/2025 2:00 PM EDT - 01/28/2025 11:59 PM EDT Hospital Encounter [facility] [address] [place] [address] Rectal cancer (CMS/HCC) (Primary Dx) Discharge Disposition: Home or Self Care 01/28/2025 Travel 01/21/2025 1:24 PM EDT - 01/21/2025 11:59 PM EDT Hospital Encounter [facility] [address] [place] [address] Rectal cancer (CMS/HCC) (Primary Dx) Discharge Disposition: Home or Self Care 01/21/2025 Travel 01/14/2025 1:30 PM EDT - 01/14/2025 11:59 PM EDT Hospital Encounter [facility] [address] [place] [address] Rectal cancer (CMS/HCC) (Primary Dx) Discharge Disposition: Home or Self Care 01/14/2025 Travel 01/08/2025 Clinical Support [facility] H[facility]ology/BMT [facility] Cellular Therapy [facility] [address] [facility], [facility] [place] [address] Sree Guerrero, PharmD Rectal cancer (CMS/HCC) (Primary Dx) 01/07/2025 12:10 PM EDT - 01/07/2025 11:59 PM EDT Hospital Encounter [facility] [address] [place] [address] Rectal cancer (CMS/HCC) (Primary Dx) Discharge Disposition: Home or Self Care 01/07/2025 10:30 AM EDT - 01/07/2025 12:09 PM EDT Hospital Encounter [facility] [address] [place] [address] Rectal cancer (CMS/HCC) (Primary Dx) Discharge Disposition: Home or Self Care 01/07/2025 9:20 AM EDT Office Visit [facility] [address] [place] [address] Joi Stewart MD Rectal cancer (CMS/HCC) (Primary Dx) 01/07/2025 9:10 AM EDT Clinical Support [facility] [address] [place] [address] Rectal cancer (CMS/HCC) 01/07/2025 Travel 12/31/2024 1:19 PM EDT - 12/31/2024 11:59 PM EDT Hospital Encounter [facility] [address] [place] [address] Rectal cancer (CMS/HCC) (Primary Dx) Discharge Disposition: Home or Self Care 12/31/2024 Travel 12/25/2024 Telephone [facility] [address] [place] [address] Manoj Fowler MD Appointment 12/24/2024 10:57 AM EDT - 12/24/2024 11:59 PM EDT Hospital Encounter [facility] [address] [place] [address] Discharge Disposition: Home or Self Care 12/24/2024 10:24 AM EDT - 12/24/2024 10:56 AM EDT Hospital Encounter [facility] [address] [place] [address] Rectal cancer (CMS/HCC) (Primary Dx) Discharge Disposition: Home or Self Care 12/24/2024 9:20 AM EDT Office Visit [facility] [address] [place] [address] Joi Stewart MD Rectal cancer (CMS/HCC) 12/24/2024 Travel from Last 3 Months Family History [...] any time in the past 12 m [facility], were you homeless or living [...] PM EDT Appointment [facility] [address] [place] [address] Manoj Fowler MD [address] [facility] [address] [place] [address] 04/22/2025 12:40 PM EDT Appointment [facility] [address] [place] [address] 04/22/2025 3:00 PM EDT Office Visit [facility] [address] [place] [address] Joi Stewart MD [address] [facility] Tete Baker [facility] [address] [place] [address] 08/14/2025 10:00 AM EST Appointment [facility] [address] [place] [address] 08/14/2025 11:00 AM EST Office Visit [facility] [address] [facility] 5th Floor [address] [place] [address] Hilary Cordova MD [address] [facility] [address] [place] [address] Health Maintenance Due Date Last Done Comments [facility]-Bone Density Scan 1950 [facility]-Medicare Annual Wellness (AWV) 1950 [facility]-/Child/Adol SDOH Screenings 1950 [facility]-DTaP,Tdap,and Td Vaccine s (1 - Tdap) 1968 [facility]-Pneumococcal Vaccine: 50 + Years (1 of 2 - PCV) 1968 [facility]-Zoster Vaccines (1 of 2) 1968 CT Colonography 1994 FIT-DNA 1994 FIT 1994 FOBT 1994 Sigmoidoscopy 1994 [id number] Vaccine (2 - Ja nssen risk series) [...] Pretreatment Tumor staging: T3a N+ 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 COMPARISON: 08/06/2024: MR pelvis with and without contrast FINDINGS: Treated primary tumor characteristics: Significantly decreased size of thepolypoid lesion in the upper rectum with minimal residual disease. New N3yrkyihzz hypointense T2 scarring along the left/posterior rectum at thesite of primary tumor. Subtle residual nodular focus of hazy [id number] signal along the mucosal/submucosal margin of the left upperrectum at the site of primary tumor (series 7, images 29/30 and series 8,images 43/45), with peripheral T2 dark scarring along the serosal margin.This focus demonstrates hyperenhancement similar to prior as well asrestricted diffusion (series 13, image 28 and series 10/11, bcumcg93/30). An area of T2 intermediate signal along [...] LAB HEMATOLOGY METHOD 01/21/2025 2:47 PM EDT [facility] RBC Count 3.53(L) 3.90 - 5.20 10*6/uL LAB HEMATOLOGY METHOD 01/21/2025 2:47 PM EDT [facility] HGB 11.8 11.2 - 15.7 g/dL LAB HEMATOLOGY METHOD 01/21/2025 2:47 PM EDT [facility] HCT 34.1 34.0 - 45.0 % LAB HEMATOLOGY METHOD 01/21/2025 2:47 PM EDT [facility] Platelet Count 238 155 - 369 10*3/uL LAB HEMATOLOGY METHOD 01/21/2025 2:47 PM EDT [facility] MCV 97 79 - 98 fL LAB HEMATOLOGY METHOD 01/21/2025 2:47 PM EDT [facility] MCH 33.4(H) 26.0 - 32.0 pg LAB HEMATOLOGY METHOD 01/21/2025 2:47 PM EDT [facility] MCHC 34.6 30.7 - 35.5 g/dL LAB HEMATOLOGY METHOD 01/21/2025 2:47 PM EDT [facility] RDW 14.9(H) 11.5 - 14.5 % LAB HEMATOLOGY METHOD 01/21/2025 2:47 PM EDT [facility] MPV 9.1 8.8 - 12.5 fL LAB HEMATOLOGY METHOD 01/21/2025 2:47 PM EDT [facility] nRBC 0.0 <=0.0 per 100 WBCs LAB HEMATOLOGY METHOD 01/21/2025 2:47 PM EDT [facility] Differential Type Automated LAB HEMATOLOGY METHOD 01/21/2025 2:47 PM EDT [facility] Neutrophils % 75 % LAB HEMATOLOGY METHOD 01/21/2025 2:47 PM EDT [facility] Lymphocytes % 12 % LAB HEMATOLOGY METHOD 01/21/2025 2:47 PM EDT [facility] Monocytes % 9 % LAB HEMATOLOGY METHOD 01/21/2025 2:47 PM EDT [facility] Eosinophils % 3 % LAB HEMATOLOGY METHOD 01/21/2025 2:47 PM EDT [facility] Basophils % 0 % LAB HEMATOLOGY METHOD 01/21/2025 2:47 PM EDT [facility] Immature Granulocytes % 1 % LAB HEMATOLOGY METHOD 01/21/2025 2:47 PM EDT [facility] Neutrophils Absolute 5.26 1.60 - 6.10 10*3/uL LAB HEMATOLOGY METHOD 01/21/2025 2:47 PM EDT [facility] Lymphocytes Absolute 0.86(L) 1.20 - 3.90 10*3/uL LAB HEMATOLOGY METHOD 01/21/2025 2:47 PM EDT [facility] Monocytes Absolute 0.65 0.30 - 0.90 10*3/uL LAB HEMATOLOGY METHOD 01/21/2025 2:47 PM EDT [facility] Eosinophils Absolute 0.23 0.00 - 0.50 10*3/uL LAB HEMATOLOGY METHOD 01/21/2025 2:47 PM EDT [facility] Basophils Absolute 0.03 0.00 - 0.10 10*3/uL LAB HEMATOLOGY METHOD 01/21/2025 2:47 PM EDT [facility] Immature Granulocytes Absolute 0.08(H) 0.00 - 0.06 10*3/uL LAB HEMATOLOGY METHOD 01/21/2025 2:47 PM EDT [facility] Blood Blood sample taken from central line / Unknown (Port) Long-term Catheter / Unknown 01/21/2025 2:16 PM EDT 01/21/2025 2:36 PM EDT [facility] - 01/21/2025 2:47 PM EDT Therapeutic decision making should be based on absolute values, rather than percentages. us Joi Stewart MD LAB BLOOD ORDERABLES Final Res ult [facility] [address] [place] [address] * (ABNORMAL) Comprehensive metabolic panel (01/21/2025 2:16 PM EDT) Only the most recent of5 resultswithin the time period is included. Glucose, Plasma 120(H) 74 - 99 mg/dL 01/21/2025 3:16 PM EDT [facility] BUN, Plasma 23 8 - 23 mg/dL 01/21/2025 3:16 PM EDT [facility] Creatinine, Plasma 1.62(H) 0.60 - 1.10 mg/dL 01/21/2025 3:16 PM EDT [facility] BUN/Creatinine Ratio 14 01/21/2025 3:16 PM EDT [facility] Sodium, Plasma 136 136 - 145 mmol/L 01/21/2025 3:16 PM EDT [facility] Potassium, Plasma 3.6 3.6 - 4.9 mmol/L 01/21/2025 3:16 PM EDT [facility] Chloride, Plasma 103 97 - 107 mmol/L 01/21/2025 3:16 PM EDT [facility] CO2, Plasma 23 22 - 29 mmol/L 01/21/2025 3:16 PM EDT [facility] Anion Gap 10 6 - 16 mmol/L 01/21/2025 3:16 PM EDT [facility] Total Calcium, Plasma 9.2 8.9 - 10.2 mg/dL 01/21/2025 3:16 PM EDT [facility] Total Protein 5.9(L) 6.3 - 7.9 g/dL 01/21/2025 3:16 PM EDT [facility] Albumin, Plasma 3.7 3.5 - 5.2 g/dL 01/21/2025 3:16 PM EDT [facility] AST, Plasma 11 10 - 35 U/L 01/21/2025 3:16 PM EDT [facility] ALT, Plasma 10 10 - 35 U/L 01/21/2025 3:16 PM EDT [facility] Alkaline Phosphatase, Plasma 59 46 - 142 U/L 01/21/2025 3:16 PM EDT [facility] Total Bilirubin, Plasma 0.3 0.2 - 1.1 mg/dL 01/21/2025 3:16 PM EDT [facility] eGFRcr 33.0 mL/min/1.7 3m*2 01/21/2025 3:16 PM EDT [facility] Comment:Reported eGFRcr in m L/min/1.73m2 is based the CKD-EPI 2020 equation that does not use a race coefficient. Blood Venous blood specimen / Unknown (Port) Long-term Catheter / Unknown 01/21/2025 2:16 PM EDT 01/21/2025 2:45 PM EDT us Joi Stewart MD LAB BLOOD ORDERABLES Final Res ult Performing Organization Address City/[facility]/ZIP Co de Phone Number [facility] [address] [place] [address] * CEA (12/24/2024 9:18 AM EDT) CEA, Serum <1.8 <4.0 ng/mL 12/24/2024 10:41 AM EDT [facility] Blood Venous blood specimen / Unknown Venipuncture / Unknown 12/24/2024 9:18 AM EDT 12/24/2024 10:05 AM EDT Narrative [facility] - 12/24/2024 10:41 AM EDT Normal range for smokers: < 5.5 ng/ml Normal range for non-smokers: <=4.0 ng/ml Performed by Karin electrochemiluminescent immunoassay. Results obtained with different test methods or kits cannot be used interchangeably. us Joi Stewart MD LAB BLOOD ORDERABLES Final Res ult Performing Organization Address City/[facility]/ZIP Co de Phone Number [facility] [address] [place] [address] * Hepatitis C Antibody - ED (08/31/2024 5:22 PM EST) Hepatitis C Antibody Negative Negative 08/31/2024 6:21 PM EST [facility] Blood Venous blood specimen / Unknown Venipuncture / Unknown 08/31/2024 5:22 PM EST 08/31/2024 5:40 PM EST us Meño Cano MD LAB BLOOD ORDERABLES Final Re sult [facility] [address] [place] [id number] * CT Chest w IV Contrast (08/06/2024 [...] medications. Staff Staff Role Robert Bueno Endo Tire Duster Shruti Gutierrez, Carmine Torres CRNA [employer]o T[employer] Duster Richard Borja MD Proceduralist Marcelina Arana Endo Nurse Avi Murrell MD Anesthesiologist dillan donaldson [...] of bowel preparation was evaluated using the [place] Bowel Preparation Scale with scores of: right [...] Colon SURGICAL PATHOLOGY EXAM Richard Borja MD 07/22/2024918 B : bx Tissue Rectum SURGICAL PATHOLOGY EXAM Richard Borja MD 07/22/2024922 Findings Ten or more adenomatous-appearing, multilobulated and semi-pedunculated pancolonic polyps; performed cold forceps biopsy Single malignant-appearing and multilobular mass (not traversable) in the cecum; bleeding occurred after intervention; performed cold forceps biopsy Single malignant-appearing mass that did not appear multilobular in the rectum; performed cold forceps biopsy us Manoj Fowler MD GI PROCEDURE ORDERABLES Final Result from Last 3 Months or Most Recently Relevant to Health Maintenance Insurance [employer] [place] [id number] MEDICARE Member Subscriber Plan / Payer (Ef fective 2015-Present) Name:Lashae Sim Member ID:[id number] Relation to Subscriber:Self Name:Lashae Sim Subscriber ID:[id number] Payer ID:MEDICARE Group ID:Not on file Type:Medicare Address: [address] Advance Directives * Full Code (Latest Code Status on File) Date Activated Date Inactivated Comments 09/02/2024 9:48 PM 09/05/2024 12:25 PM Question Answer Comments Patient has decision-making capacity? Yes * Full Code Date Activated Date Inactivated Comments 08/31/2024 7:20 PM 09/02/2024 9:48 PM Question Answer Comments Patient has decision-making capacity? Yes Care Teams Log Driver Relationship Specialty Start Date End Date Natalia Wayne APRN [address] [place] [id number] PCP - General 12/10/24
[2025-03-26 09:01] LABS: Basophils # 0.1 K/mm3 (0-0.2); Basophils % 0.9 % (0.1-2.0); Eosinophils # 0.2 Kmm3 (0.0-0.4); Eosinophils % 3.6 % (0.1-12.0); Hematocrit 34.6 % (37.0-47.0); Hemoglobin 11.4 g/dL (12.2-16.2); Immature Granulocytes # 0.01 10^3uL; Immature Granulocytes % 0.2 %; Lymphocytes # 1.3 K/mm3 (0.7-4.5); Lymphocytes % 23.6 % (10-50); Mean Corpuscular HGB Conc 32.9 g/dL (31.8-35.4); Mean Corpuscular Hemoglobin 32.5 pg (27.0-31.2); Mean Corpuscular Volume 98.6 fl (81-99); Mean Platelet Volume 9.1 fl (7.4-10.4); Monocytes # 0.5 K/mm3 (0.1-1.0); Monocytes % 9.4 % (1.7-9.3); Neutrophils # 3.5 K/mm3 (1.8-7.8); Neutrophils % 62.3 % (37.0-80.0); Nucleated Red Blood Cells # 0 10^3/uL; Nucleated Red Blood Cells % 0 %; Platelet Count 223 K/mm3 (142-424); Red Blood Count 3.51 M/mm3 (4.20-5.40); Red Cell Distribution Width-SD 54.4 fL; White Blood Count 5.5 K/mm3 (4.8-10.8)
[2025-03-26 09:21] LABS: Albumin Level 3.7 g/dl (3.5-5.0); Chloride 108 mmol/L (98-107); Sodium 137 mmol/L (136-145)
[2025-03-26 09:22] LABS: Potassium 3.9 mmoL/L (3.5-5.1)
[2025-03-26 09:24] LABS: Alanine Aminotransferase 10 U/L (12-78); Anion Gap 11.9 mEq/L (5-15); Aspartate Amino Transferase 20 U/L (14-36); Blood Urea Nitrogen 20 mg/dl (7-17); Carbon Dioxide 21 mmol/L (22.0-30.0); Estimated Glomerular Filt Rate 31 ml/min (>60); GFR (African American) 38 ML/MIN (>60)
[2025-03-26 09:25] LABS: Albumin/Globulin Ratio 1.2 (1.1-1.8); Alkaline Phosphatase 72 U/L (38-126); Bilirubin,Total 0.3 mg/dl (0.2-1.3); Calcium 8.9 mg/dl (8.4-10.2); Glucose 90 mg/dl (74-100); Total Protein,Serum 6.7 g/dl (6.3-8.2)
[2025-03-26] MEDS: DEXAMETHASONE 4MG TABLET 12 MG (09:51)
[2025-03-26] MEDS: ONDANSETRON 4MG ODT 16 MG (09:52)
[2025-03-26] MEDS: POTASSIUM CHLORIDE 20MEQ TAB 40 MEQ PO (09:52)
[2025-03-26] MEDS: DEXTROSE 5% IV ×2 (10:33)
[2025-03-26] MEDS: LEUCOVORIN CALCIUM IV (10:33)
[2025-03-26] MEDS: OXALIPLATIN IV (10:33)
[2025-03-26] MEDS: WATER IV ×2 (10:33)
[2025-03-26] MEDS: DEXTROSE 5 % IN WATER 100 ML 200 ML IV (12:32)
[2025-03-26] MEDS: FLUOROURACIL 500MG/10ML VIAL 700 MG IV (12:33)
== END 2025-03-26 13:20 | disposition home or self-care (01) ==
LOC: INF 08:44
PROVIDERS: PCP Nurse Practitioner Family; Visit Provider Internal Medicine Medical Oncology
DX: Z51.11 Encounter for antineoplastic chemotherapy (principal); C20 Malignant neoplasm of rectum
CPT/HCPCS: 80053; 85025; 96368; 96413; 96415; 96416; J0640; J7060; J8540; J9190; J9263; Q0162

== ENCOUNTER 2025-03-28 11:45 | Outpatient (CLI) | payer MEDICARE, SELFPAY ==
--- OUTSIDE RECORDS SUMMARY | 2025-02-04 09:12 | XMS_ITS | Encounter Summary ---
Author Organization [facility] Address [address] [place] [address] Care Team Providers Care Computer System Validation Specialist Name Role Phone Natalia Wayne YVONNE Primary Care Provider [phone] Reason for Referral * Imaging (Routine) - Closed Specialty Diagnoses / Procedures Referred By Lexii moody Referred To Contact Radiology Diagnoses Rectal cancer (CMS/HCC) Procedures MR Pelvis w and wo IV Contrast Manoj Fowler MD [address] [address] Phone: tel: fax: Referral ID Status Reason Start Date Expiration Date Visits Re quested Visits Authorized [id number] Closed 09/24/2024 03/26/2026 1 1 Reason for Visit * Imaging (Routine) - Closed Specialty Diagnoses / Procedures Referred By Lexii moody Referred To Contact Radiology Diagnoses Rectal cancer (CMS/HCC) Procedures MR Pelvis w and wo IV Contrast Manoj Fowler MD [address] [address] Phone: tel: fax: Referral ID Status Reason Start Date Expiration Date Visits Re quested Visits Authorized [id number] Closed 09/24/2024 03/26/2026 1 1 Encounter Details Date Type Department Care Team (Latest Contact Info) Description 02/04/2025 9:12 AM EDT - 02/04/2025 11:59 PM EDT Hospital Encounter [facility] [address] [place] [address] Rectal [facility] ([facility]) Discharge Disposition: Home or Self Care Social [...] any time in the past 12 m [facility], were you homeless or living in a nursing home (including now)? No 09/02/2024 Utilities Answer Date Recorded In the past 12 months has e [employer], gas, oil, or water [employer] threatened to shut off services in your [...] Care Team (Late st Contact Info) Description 04/22/2025 12:40 PM EDT Appointment [facility] [address] [place] [address] 04/22/2025 3:00 PM EDT Office Visit [facility] [address] [place] [address] Joi Stewart MD 800 [facility] [address] [facility] [address] [place] [address] 07/30/2025 1:00 PM EDT Appointment [facility] [address] [place] [address] Manoj Fowler MD [id number] [place] [address] 08/14/2025 10:00 AM EST Appointment [facility] Vascular Lab [address] [facility] 5th Floor [address] [place] [address] 08/14/2025 11:00 AM EST Office Visit [facility] Comprehensive [facility]ascular Clinic [address] [facility] 5th Floor [address] [place] [address] Hilary Cordova MD [id number] [place] [address] documented as of this encounter Procedures Procedure [...] Pretreatment Tumor staging: T3a N+ Prior treatment: GRAVEL WEIGHER completed 01/29 TECHNIQUE: Multiplanar, multisequence MR imaging [...] Pretreatment Tumor staging: T3a N+ Prior treatment: GRAVEL WEIGHER completed 01/29 TECHNIQUE: Multiplanar, multisequence MR imaging of the pelvis was performed on a 3Tmagnet both before and after administration of 6.5 mL of intravenousGadavist contrast. COMPARISON: 08/06/2024: MR pelvis with and without contrast FINDINGS: Treated primary tumor characteristics: Significantly decreased size of thepolypoid lesion in the upper rectum with minimal residual disease. New I6ybrlfrio hypointense T2 scarring along the left/posterior rectum at thesite of primary tumor. Subtle residual nodular focus of hazy Q1lqwogvmfhmhe signal along the mucosal/submucosal margin of the left upperrectum at the site of primary tumor (series 7, images 29/30 and series 8,images 43/45), with peripheral T2 dark scarring along the serosal margin.This focus demonstrates hyperenhancement similar to prior as well asrestricted diffusion (series 13, image 28 and series 10/11, /30). An area of T2 intermediate signal along [...] documented as of this encounter Care Teams Computer System Validation Specialist Relationship Specialty Start Date End Date Natalia Wayne APRN [address] [place] [address] PCP - General 12/10/24 documented as of this encounter
--- OUTSIDE RECORDS SUMMARY | 2025-02-04 14:00 | XMS_ITS | Encounter Summary ---
Author Organization [facility] Address [address] [place] [address] Care Team Providers Care Rug Scratcher Name Role Phone Natalia Wayne YVONNE Primary Care Provider [phone] Reason for Referral * Imaging (Routine) - Authorized Specialty Diagnoses / Procedures Referred By Lexii moody Referred To Contact Gastroenterology Diagnoses Rectal cancer (CMS/HCC) Procedures Flexible Sigmoidoscopy Manoj Fowler MD [address] [address] Phone: tel: fax: Referral ID Status Reason Start Date Expiration Date Visits Requested Visits Authorized [id number] Authorized Specialty Services Required 02/04/2025 08/06/2026 1 1 Reason for Visit * Reason Comments Follow-up Rectal Cancer Encounter Details Date Type Department Care Team (Latest Contact Info) Description 02/04/2025 2:00 PM EDT Office Visit [facility] Multidisciplinary Oncology Clinic [address] [place] [address] Manoj Fowler MD [address] [address] Rectal cancer (CMS/HCC) (Primary Dx) Social [...] any time in the past 12 m [facility], were you homeless or living in [...] Sreekanth Bowen - 02/04/2025 2:00 PM EDT [facility] Colon & Rectal Surgery 02/04/2025 Chief Complaint: Rectal cancer (CMS/HCC) [C20] Cancer Staging Rectal cancer (CMS/HCC) Staging form: Colon and Rectum, AJCC 8th Edition - Clinical stage from 08/06/2024: Stage IIIB (cT3, cN1, cM0) - Signed by Manoj Fowler MD on 08/13/2024 HPI: Lashae Wyman is a 74 y.o. 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 [facility] plan was CLARIBEL. She has recently completed radiation and 28 days of 5FU and anticipate 4m of FOLFOX to follow (anticipate w/ Billy Yip, but has been following w/ Terry at [facility]). She notes that she feels fatigued and [...] personally reviewed all the laboratory examinations and imagingstudies below: Lab Results Component Value Date WBC [...] Pretreatment Tumor staging: T3a N+ Prior treatment: SALES AND SERVICE TECHNICIAN completed 01/29 TECHNIQUE: Multiplanar, multisequence MR imaging [...] surgical planning Sreekanth Bowen MS3 Cosigned by aMnoj Fowler MD at 02/13/2025 10:32 PM EDT Associated attestation - Manoj Fowler MD - 02/13/2025 10:32 PM EDT I saw and evaluated the patient with the medical/SHINGLE INSPECTOR/PA student. I discussed the case with the medical/SHINGLE INSPECTOR/PA student and agree with the findings and plan as documented. I personally performed the Examand Medical Decision Making. documented in this encounter Plan of Treatment Upcoming Encounters Date Type Department Care Team (Late st Contact Info) Description 04/22/2025 12:40 PM EDT Appointment [facility] [address] [place] [address] 04/22/2025 3:00 PM EDT Office Visit [facility] Multidisciplinary Oncology Clinic [address] [place] [address] Joi Stewart MD [address] [facility] [address] [place] [address] 07/30/2025 1:00 PM EDT Appointment [facility] [address] [place] [address] Manoj Fowler MD [address] [facility] [address] [place] [address] 08/14/2025 10:00 AM EST Appointment [facility] Vascular Lab [address] [place] [address] 08/14/2025 11:00 AM EST Office Visit [facility] Comprehensive Vascular Clinic [address] [place] [address] Hilary Cordova MD [address] [facility] [address] [place] [address] Scheduled Orders Name Type Priority Associated Diagnoses [...] documented as of this encounter Care Teams Rug Scratcher Relationship Specialty Start Date End Date Natalia Wayne, YVONNE [address] [place] [phone] PCP - General 12/10/24 documented as of this encounter
--- OUTSIDE RECORDS SUMMARY | 2025-02-04 14:40 | XMS_ITS | Encounter Summary ---
Author Organization [facility] Address [address] [place] [address] Care Team Providers Care Boiler Or Engine Operator Name Role Phone Natalia Wayne YVONNE Primary Care Provider [phone] Reason for Referral * Consultation (Routine) - Authorized Specialty Diagnoses / Procedures Referred By Lexii moody Referred To Contact Medical Oncology Diagnoses Rectal cancer (CMS/HCC) Joi Stewart MD [address] [facility] [address] [address] Phone: tel: fax: Referral ID Status Reason Start Date Expiration Date Visits Requested Visits Authorized [id number] Authorized Specialty Services Required 02/04/2025 08/06/2026 1 1 Scheduling Instructions Refer to Dr Yip in [place] Reason for Visit * Reason Comments Follow-up Rectal Cancer Encounter Details Date Type Department Care Team (Late st Contact Info) Description 02/04/2025 2:40 PM EDT Office Visit [facility] Multidisciplinary Oncology Clinic [address] [place] [phone] Joi Stewart MD 800 [facility] [place] [address] [address] Rectal cancer (CMS/HCC) (Primary Dx) Social History [...] any time in the past 12 m [facility], were you homeless or living in [...] on file documented as of this encounter Miscellaneous Notes * Progress Notes - Joi Stewart MD - 02/04/2025 2:40 PM EDT Medical Oncology Follow up Patient Information Patient Name: Lashae Wyman Date of : 1950 74 y.o. REFERRING PHYSICIAN: No referring provider defined for this encounter. Encounter Date: 02/04/2025 Patient Care Team: Natalia Wayne APRN as PCP - General Chief Complaint Patient presents with Follow-up Rectal Cancer Treatment Diagnosis: @[email or web address]@ Cancer Staging: Cancer Staging Rectal cancer (CMS/HCC) Staging form: Colon and Rectum, AJCC 8th Edition - Clinical stage from 08/06/2024: Stage IIIB (cT3, cN1, cM0) - Signed by Manoj Fowler MD on 08/13/2024 ASSESSMENT/PLAN: Lashae Wyman is a 74 y.o. female with Cancer Staging Rectal cancer (CMS/HCC) Staging form: Colon and Rectum, AJCC 8th Edition - Clinical stage from 08/06/2024: Stage IIIB (cT3, cN1, cM0) - Signed by Manoj Fowler MD on 08/13/2024 Please see oncology history for pertinent details of diagnosis and treatment to date. Rectal cancer, MMR intact Clinical stage III, cT3N1 07/22/24: colonoscopy Dr. Manoj Fowler--10 or more polyps. Single malignant appearing multilobular mass not transversable, in cecum, biopsied. Single malignant appearing mass in rectum. 07/22/24: bx R colon--superficial fragments of adenoma, features of traditional serrated adenoma. No invasive carcinoma present. Bx of rectal mass, moderately differentiated adenocarcinoma--MMR intact. 08/06/24: CT chest with contrast--no evidence of metastatic disease 08/06/24: MR pelvis with and without contrast--clinical T3aN+ rectal mass, upper rectum. No EMVI. Few small <5mm mesorectal lymph nodes. Clear tumor margin >2mm from MRF. Incidental note of endometrial thickening, could reflect endometrial carcinoma consider tissue sampling. 08/13/24: reviewed at tumor board . Recommend CLARIBEL with FOLFOX followed by chemoXRT. 09/02/24: laparoscopic loop ileostomy Dr. Manoj Fowler due to large bowel obstruction 10/01/24: cycle [address] Theodora Emerson (insurance refused to cover infusion 5FU) 10/21/24-10/24/24: hospitalized [place] with marked dehydration from severe diarrhea due to Xeloda (capecitabine). Acute renal failure with Cr 3.0. tx with antidiarrheals and antiemetics, Cr down to 1.8 at time of discharge. 11/14/24: MR abd with and without contrast [place]--liver normal. No evidence of metastatic disease. No biliary ductal dilatation. 4.5cm left renal cyst without enhancement. 12/24/24: start concurrent 5FU infusion with XRT (5FU civi 225mg/m2 iv over 24 hrs daily on days 1-7for 5 weeks concurrent with XRT--long course XRT). Pt will receive XRT at [place] but 5FU civi through due to insurance restrictions (insurance would not approve 5FU civi to be given at [place], but we were able to get coverage for 5FU civi at ). After completion of chemoXRT, would need 4 months FOLFOX to complete total neoadjuvant therapy for clinical stage III rectal cancer prior to surgical resection--depending on tolerance. 12/25/24: first XRT in [place] 12/24/24: start concurrent 5FU infusion with XRT (5FU civi 225mg/m2 iv over 24 hrs daily on days 1-7for 5 weeks concurrent with XRT--long course XRT). Pt will receive XRT at [place] but 5FU civi through due to insurance restrictions (insurance would not approve 5FU civi to be given at [place], but we were able to get coverage for 5FU civi at ). After completion of chemoXRT, would need 4 months FOLFOX to complete total neoadjuvant therapy for clinical stage III rectal cancer prior to surgical resection--depending on tolerance. 01/28/25: last day 5FU civi concurrent with XRT 02/04/25: MR pelvis with and without contrast--good but not complete response. Significant loss in tumor size. Small focus of residual tumor. No suspicious lymph nodes. Plan 02/04/25: --d/w patient and family that she has completed the chemoXRT (long course) tx of rectal cancer withgood, but not complete response by MRI --d/w patient and family that she needs further chemotherapy to complete total neoadjuvant therapy course for rectal cancer, though she has completed XRT portion --she essentially only got one cycle or less of CAPEOX Oct 2024, stopped early due to severe capecitabine toxicity, see above --recommended 4 months of FOLFOX chemotherapy to complete CLARIBEL regimen--followed by either surgical resection or watch/wait strategy if clinical complete response at that time. She tolerated 5FU civi with XRT fine so I think she will tolerate FOLFOX well. Would not rechallenge capecitabine. --discussed logistics of FOLFOX regimen. She would rather receive this with Dr. Yip medical oncologist close to her home in [place]. D/w Dr. Yip by phone after appt. Follow up 04/16/25: flex sig sched with Dr. Manoj Fowler I will plan to see her back mid April 2025 after flex sig, assuming that she completes FOLFOX neoadjuvant chemotherapy with Dr. Yip in [place]. She would be due for repeat CT c/a/p with contrast for rectal cancer staging April 2025, can get those scans done here at or at [place]. Patient and family encouraged to call if any problems or concerns prior to next visit. Dr. Fowler appt early January Radiation oncologist Shayy Ovalle. Dr. Mariia Marks phone [phone] >30 minutes was spent on this encounter; including preparing to see the patient, which involved review/interpretation of diagnostics and reports; obtaining and/or reviewing separately obtained history; performing appropriate physical exam; ordering/scheduling medications, tests or procedures; communicating findings and counseling/educating the patient, family and/or caregiver; documentation inEMR; and care coordination. Joi Stewart MD Division of Medical Oncology [facility] Treatment Plans Name Type Plan Dates Plan Provider Active Protracted Fluorouracil Every 7 Days x 3 + XRT Oncology Treatment 12/22/2024 - Present Joi Stewart MD Oncology History: Oncology History Overview Note Rectal cancer, MMR intact 10/21/24: colonoscopy Dr. Manoj Fowler--10 or more polyps. Single malignant appearing multilobular mass not transversable, in cecum, biopsied. Single malignant appearing mass in rectum. 07/22/24: bx R colon--superficial fragments of adenoma, features of traditional serrated adenoma. No invasive carcinoma present. Bx of rectal mass, moderately differentiated adenocarcinoma--MMR intact. 08/06/24: CT chest with contrast--no evidence of metastatic disease 08/06/24: MR pelvis with and without contrast--clinical T3aN+ rectal mass, upper rectum. No EMVI. Few small <5mm mesorectal lymph nodes. Clear tumor margin >2mm from MRF. Incidental note of endometrial thickening, could reflect endometrial carcinoma consider tissue sampling. 08/13/24: reviewed at tumor board . Recommend CLARIBEL with FOLFOX followed by chemoXRT. 09/02/24: laparoscopic loop ileostomy Dr. Manoj Fowler due to large bowel obstruction 10/01/24: cycle [address] Theodora Emerson (insurance refused to cover infusion 5FU) 10/21/24-10/24/24: hospitalized [place] with marked dehydration from severe diarrhea due to Xeloda (capecitabine). Acute renal failure with Cr 3.0. tx with antidiarrheals and antiemetics, Cr down to 1.8 at time of discharge. 11/14/24: MR abd with and without contrast [place]--liver normal. No evidence of metastatic disease. No biliary ductal dilatation. 4.5cm left renal cyst without enhancement. 12/24/24: start concurrent 5FU infusion with XRT (5FU civi 225mg/m2 iv over 24 hrs daily on days 1-7for 5 weeks concurrent with XRT--long course XRT). Pt will receive XRT at [place] but 5FU civi through due to insurance restrictions (insurance would not approve 5FU civi to be given at [place], but we were able to get coverage for 5FU civi at ). After completion of chemoXRT, would need 4 months FOLFOX to complete total neoadjuvant therapy for clinical stage III rectal cancer prior to surgical resection--depending on tolerance. 01/28/25: last day 5FU civi concurrent with XRT 02/04/25: MR pelvis with and without contrast--good but not complete response. Significant loss in tumor size. Small focus of residual tumor. No suspicious lymph nodes. 04/16/25: flex sig sched with Dr. Manoj Fowler Rectal cancer (CMS/HCC) 08/06/2024 Cancer Staged Staging form: Colon and Rectum, AJCC 8th Edition, Clinical stage from 08/06/2024: Stage IIIB (cT3, cN1, cM0) - Signed by Manoj Fowler MD on 08/13/2024 08/13/2024 Initial Diagnosis Rectal cancer (CMS/HCC) 12/16/2024 - 12/16/2024 Chemotherapy mitoMYcin (Mutamycin) injection 17.8 mg, 10 mg/m2 = 17.8 mg, Intravenous, Once, 0 of 2 cycles fluorouracil (Adrucil) 7,000 mg in sodium chloride 0.9 % 170 mL infusion - for home use, 4,000 mg/m2 = 7,000 mg, Intravenous, Over 96 hours, 0 of 2 cycles 12/24/2024 - 01/21/2025 Chemotherapy fluorouracil (Adrucil) 2,750 mg in sodium chloride 0.9 % 101 mL infusion - for home use, 1,575 mg/m2 = 2,750 mg, Intravenous, Over 168 hours, 1 of 1 cycle Administration: 2,750 mg (12/24/2024), 2,750 mg (12/31/2024), 2,750 mg (01/07/2025), 2,750 mg (01/14/2025), 2,750 mg (01/21/2025) Chief complaint: fatigue History of Presenting Illness: Please see oncology history. She has diverting ostomy due to malignant bowel obstruction She finished concurrent 5FU civi with XRT (XRT in [place]) on 01/28/25 She is here for follow up with colorectal surg as well after MR pelvis She feels well, some fatigue. No nausea/vomiting No diarrhea Eating/drinking normally No new abd/pelvic pain Past Medical, Surgical, Family and Social History Medical History[1] Surgical History[2] Family History[3] Social History[4] Allergies and Adverse Drug Reactions Patient has no known allergies. Medications Current Medications[5] Review of Systems: 14 pt review of systems performed and negative except as noted in HPI. PE: There were no vitals filed for this visit. Wt Readings from Last 3 Encounters: 02/04/25 62.6 kg (138 lb) 01/28/25 65.5 kg (144 lb 6.4 oz) 01/21/25 67.5 kg (148 lb 13 oz) ECO General: Sitting/resting comfortably in chair, NAD HEENT: NCAT, PERRL/EOMI, anicteric Neck: Supple, no cervical or supraclavicular adenopathy Heart: RRR, no MGR Lungs: CTAB; no rales, rhonchi or wheezes Abdomen: Soft, NTND, + BS. +ostomy. Extremities: No edema, distal pulses intact Musculoskeletal: No focal tenderness or deformity Skin: No visible rashes or lesions. No jaundice Neuro: Grossly nonfocal; no localizing deficits of strength, sensation, or mentation. Normal gait Psychiatric: Normal mood and thought content Access: port c/d/I left chest LABORATORY AND IMAGING STUDIES: There were no vitals taken for this visit. Lab Results Component Value Date WBC 7.11 01/21/2025 HGB 11.8 01/21/2025 HCT 34.1 01/21/2025 MCV 97 01/21/2025 PLT 238 01/21/2025 Lab Results Component Value Date NEUTROABS 5.26 01/21/2025 Lab Results Component Value Date GLUCOSE 120 (H) 01/21/2025 CALCIUM 9.2 01/21/2025 NA 136 01/21/2025 K 3.6 01/21/2025 CO2 23 01/21/2025 CL 103 01/21/2025 BUN 23 01/21/2025 CREATININE 1.62 (H) 01/21/2025 Lab Results Component Value Date CALCIUM 9.2 01/21/2025 PHOS 4.8 (H) 09/03/2024 Lab Results Component Value Date ALBUMIN 3.7 01/21/2025 Lab Results Component Value Date ALT 10 01/21/2025 AST 11 01/21/2025 ALKPHOS 59 01/21/2025 BILITOT 0.3 01/21/2025 Recent Labs Units 06/11/24 1601 07/30/24 1622 12/24/24 0918 CEA ng/mL <1.8 <1.8 <1.8 No image results found. Please see oncology history for pertinent details of radiology, imaging, pathology [1] Past Medical History: Diagnosis Date Basal cell carcinoma Excised 2003 Thyroid disorder [2] Past Surgical History: Procedure Laterality Date BASAL CELL CARCINOMA EXCISION [3] Family History Problem Relation Name Age of Onset Hypercholesterolemia Other Diabetes Other Heart Problem Other Hypertension Other [4] Social History Tobacco Use Smoking status: Every Day Current packs/day: 0.50 Average packs/day: 0.5 packs/day for 50.4 years (25.2 ttl pk-yrs) Types: Cigarettes Start date: 1974 Passive exposure: Past Smokeless tobacco: Never Vaping Use Vaping status: Never Used Substance Use Topics Alcohol use: Never Drug use: Never [5] Current Outpatient Medications: acetaminophen (Tylenol) 500 MG tablet, Take 1 tablet (500 mg) by mouth every 6 (six) hours., Disp: 100 tablet, Rfl: 0 aspirin 81 MG EC tablet, Take 1 tablet (81 mg) by mouth daily. (Patient not taking: Reported on 01/07/2025), Disp: , Rfl: Calcium Polycarbophil (Fiber) 625 MG tablet, Take 2 tablets by mouth in the morning and 2 tablets before bedtime. (Patient not taking: Reported on 01/07/2025), Disp: , Rfl: lisinopril 10 MG tablet, Take 1 tablet (10 mg) by mouth Daily., Disp: , Rfl: loperamide (Imodium A-D) 2 MG tablet, Take 1 tablet by mouth 4 times a day as needed for diarrhea.,Disp: , Rfl: ondansetron ODT (Zofran-ODT) 4 MG disintegrating tablet, Take 1 tablet (4 mg) by mouth every 6 (six) hours if needed for nausea or vomiting., Disp: 20 tablet, Rfl: 0 rivaroxaban (Xarelto) 10 MG tablet, Take 1 tablet (10 mg) by mouth 1 (one) time each day for 25 days., Disp: 25 tablet, Rfl: 0 rosuvastatin (Crestor) 20 MG tablet, Take 1 tablet (20 mg) by mouth every night., Disp: 30 tablet, Rfl: 5 documented in this encounter Plan of Treatment Upcoming Encounters Date Type Department Care Team (Late Contact Info) Description 04/22/2025 12:40 PM EDT Appointment [facility] [address] [place] [address] 04/22/2025 3:00 PM EDT Office Visit [facility] [address] [place] [phone] Joi Stewart MD [address] [facility] [address] [place] [phone] 07/30/2025 1:00 PM EDT Appointment [facility] [address] [place] [phone] Manoj Fowler MD [address] [facility] [address] [place] [phone] 08/14/2025 10:00 AM EST Appointment [facility] [address] [place] [address] 08/14/2025 11:00 AM EST Office Visit [facility]ascular [facility] [address] [place] [phone] Hilary Cordova MD [address] [facility] [address] [place] [phone] Scheduled Orders Name Type Priority Associated Diagnoses Orde r Schedule CBC and Differential Lab Routine Rectal cancer (CMS/HCC) Expected: 02/04/2025, Expires: 07/29/2026 CEA, Serum Lab Routine Rectal cancer (CMS/HCC) Expected: 02/04/2025, Expires: 07/29/2026 Comprehensive Metabolic Panel, Plasma Lab Routine Rectal cancer (CMS/HCC) Expected: 02/04/2025, Expires: 07/29/2026 Scheduled Referrals Name Type Priority Associated Diagnoses Order Schedule Ambulatory referral to Hematology Oncology/Medical Oncology Outpatient Referral Routine Rectal cancer (CMS/HCC) Expected: 02/04/2025 (Approximate), Expires: 08/07/2026 documented as of this encounter Visit Diagnoses [...] documented as of this encounter Care Teams Boiler Or Engine Operator Relationship Specialty Start Date End Date Natalia Wayne APRN [address] [place] [address] PCP - General 12/10/24 documented as of this encounter
[2025-03-28] MEDS: SODIUM CHLORIDE 0.9% 10ML FLUSH SYRINGE 10 ML IV (11:45)
--- OUTSIDE RECORDS SUMMARY | 2025-04-03 14:43 | XMS_ITS ---
Author Organization [facility] Address [address] [place] [address] Care Team Providers Care Tile And Marble Installer Name Role Phone Natalia Wayne APRN Primary Care Provider [phone] Active Problems Problem Noted Date Diagnosed Date [...] 5-FU (Adrucil) infusion - for home use ([facility] supplied) CADD 100ML Therapy Complete Joi Stewart MD 1 of 1 cycle started MitoMYcin + Fluorouracil Every 28 Days x 2 + XRT 12/17/19 25 12/13/2024 5-FU CHEMO INFUSION ([facility] SUPPLIED) CADD ORDERABLEmitoMYcin (Mutamycin) Other (See Comments) Joi Stewart MD Treatment not started Resolved Problems Problem Noted Date Diagnosed Date Resolved Date Large bowel obstruction 08/31/2024 120 01/2024
--- OUTSIDE RECORDS SUMMARY | 2025-04-03 14:43 | XMS_ITS | Data Portability ---
Author Organization [employer] [facility] Address [address] [place] [address] Assessment Encounter Date Assessment Date Assessment LastModified [...] Orders lisinopril 10 mg tablet 2024 025 [facility], [address] [place] [address], [id number], 5 12:42:46 lisinopril 10 mg tablet 2023 024 [facility], [address] [place] [address], [address], 15:41:55 Patient TargetsNo targets recorded. Patient Instructions Encounter Date Encounter Id Patient Instructions Last Modified By Organization Details Last Modified Time 09/11/2024 [id number] high blood pressure: care instructions [facility] Not available 09/11/2024 15:20:14 learning about high blood pressure Not available 09/11/2024 15:20:14 high cholesterol : care instructions [facility] Not available 09/13/2024 16:54:02 Reason for Referral None Reported. Results Created Date Observation Date Name Description Value Unit Range Abnormal Flag Note LastModifiedBy Organization Detail LastModifiedTime 10/21/19 25 10/21/2024 HCV antib britney servando alfaro, reai ngful use set HCV Ab normal Not Available [facility] (Lab) [address], [place], [address], 10/21/2024 15:09:59 10/21/19 25 10/21/2024 CT, chest , w/o contr ast No observ ation record ed. [address] [facility], [place], [address], 10/21/2024 15:21:14 10/21/19 25 10/21/2024 CT, abdom en + pelvi s, w/o contr ast No observ ation record ed. [address] [facility], [place], [address], 10/21/2024 15:23:15 10/22/19 25 10/21/2024 elect dominic parrgr am, routi ne ECG, 12 leads min; inter preta tion and repor t (PROC ) No observ ation record ed. [address] [facility], [place], [address], 10/23/2024 10:18:59 11/14/19 25 11/14/2024 MR, angio gram, abdom en, w/wo contr ast No observ ation record ed. [address] [facility], [place], [address], 11/21/2024 10:32:46 Result Notes None recorded. Problems Name Problem SNOMED Code Status Onset Date Resolution Date Notes Provider Name and Address Organization Details Recorded Time Essential hypertension 97493340 Active 2023 Natalia Wayne, STACEY [address] [place], [address], [employer] 16:54:24 Carcinoma of colon, stage IV 383259550 Active 2023 Natalia Wayne NP [address] [place], [address], [facility] 16:54:23 Hyperlipidemia 85633039 Active 2023 Natalia Wayne NP [address] [place], [address], [employer] 16:54:26 Problem Notes None recorded. Medical [...] in Arterial blood by Pulse oximetry Systolic And Diastolic Systolic And Diastolic Systolic And Diastolic Provider Name and Address Organization Details Last Updated DateTime 5 170.18 cm 24.5 kg/m2 07765.1 1 g 75 /min 97 % 97 % 144/86 mm[Hg] 163/76 mm[Hg] 139/84 mm[Hg] Oksana Reddy [employer] 5 10:44:34 Date Recorded Body height Body mass index (BMI) Body weight Heart rate Oxygen saturation Oxygen saturation in Arterial blood by Pulse oximetry Systolic And Diastolic Systolic And Diastolic Systolic And Diastolic Provider Name and Address Organization Details Last Updated DateTime 4 170.18 cm 24.3 kg/m2 26588.9 2 g 72 /min 97 % 97 % 177/84 mm[Hg] 182/82 mm[Hg] 174/86 mm[Hg] Oksana Reddy [employer] 4 14:56:23 Social History Question Answer Notes LastModified by Organizat ion Details LastModified Time Tobacco Smoking Status Current Every Day Smoker Oksana Reddy [email or web address] 09/11/2024 14:56:35 Do You Have An Advance Directive? No [email or web address] Information n ot available 09/11/2024 Is Your Home Air Conditioned? Yes Information not available 09/11/2024 Do You Wear A Helmet When Biking? No [email or web address] Information not available 09/11/2024 Are You Blind Or Do You Have Difficulty Seeing? No [email or web address] Information n ot available 09/11/2024 What Is Your Level Of Caffeine Consumption? Moderate [email or web address] Information not available 09/11/2024 What Type Of Director E Learning Do You Use? None [email or web address] Information not available 09/11/2024 In The 14 Days Before Symptom Onset, Have You Had Close Contact With A Laboratory-confirm ed COVID-19 While That Case Was Ill? No [email or web address] Information n ot available 09/11/2024 In The 14 Days Before Symptom Onset, Have You Had Close Contact With A Person Who Is Under Investigation For COVID-19 While That Person Was Ill? No [email or web address] Information not available 09/11/2024 Have You Been To An Area Known To Be High Risk For COVID-19? No [email or web address] Information not available 09/11/2024 Are You Deaf Or Do You Have Serious Difficulty Hearing? No [email or web address] Information not available 09/11/2024 What Type Of Diet Are You Following? REGULAR [email or web address] Information n ot available 09/11/2024 How Many Days Of Moderate To Strenuous Exercise, Like A Brisk Walk, Did You Do In The Last 7 Days? 3 Information not available 09/11/2024 Are There Any Guns Present In Your Home? Yes [email or web address] Information not available 09/11/2024 Which Of Your Hands Is Dominant? Right [email or web address] Information n ot available 09/11/2024 Do You Have A Medical Power Of Per Diem Nurse? No Information not available 09/11/2024 What Was The Date Of Your Most Recent Tobacco Screening? 10/03/2024 [email or web address] Information not available 10/03/2024 Do You Have Any Pets? Yes Information not available 09/11/2024 What Is Your Relationship Status? [email or web address] Information not available 09/11/2024 Have You Repeated Any Grades? No Information not available 09/11/2024 Do You Use Your Seat Belt Or Car Seat Routinely? Yes [email or web address] Information not available 09/11/2024 Are You Sexually Active? No [email or web address] Information not available 09/11/2024 Do You Have Any Siblings? Shae Mcfadden [email or web address] Information not available 09/11/2024 Do You Have Smoke And Carbon Monoxide Detectors In Your Home? No [email or web address] Information not available 09/11/2024 At What Age Did You Start Smoking Tobacco? 17 [email or web address] Information not available 09/11/2024 Are You Passively Exposed To Smoke? Yes [email or web address] Information no t available 09/11/2024 Are There Any Smokers In Your House? Yes Information not available 09/11/2024 How Much Tobacco Do You Smoke? 0.5 PPD [email or web address] Information not available 09/11/2024 Do You Participate In Social Media? Yes [email or web address] Information not available 09/11/2024 Do You Use Sunscreen Routinely? No [email or web address] Information not available 09/11/2024 Has Tobacco Cessation Counseling Been Provided? No [email or web address] Information not available 09/11/2024 How Many Years Have You Smoked Tobacco? 60 [email or web address] Information not available 09/11/2024 Have You Recently Traveled Abroad? No [email or web address] Information not available 09/11/2024 Do You Have Difficulty Walking Or Climbing Stairs? No Information not available 09/11/2024 Are You Currently In School? No Information not available 09/11/2024 Do You Have Any Dietary Restrictions? No [email or web address] Information not available 09/11/2024 Sex: Female Functional Status Question Answer Note LastModified by Organizat ion Details LastModified Time Do you use any illicit or recreational drugs? No [email or web address] Information not available 09/11/2024 Do you or have you ever used any other forms of tobacco or nicotine? No [email or web address] Information not available 09/11/2024 What is your level of alcohol consumption? None [email or web address] Information not available 09/11/2024 Are you currently employed? No [email or web address] Information not available 09/11/2024 Do you have transportation difficulties? No [email or web address] Information not available 09/11/2024 Are you able to walk? YESWOREST [email or web address] Information not available 09/11/2024 Do you have difficulty doing errands alone? No [email or web address] Information not available 09/11/2024 Are you able to care for yourself? Yes Information not available 09/11/2024 Do you have difficulty dressing or bathing? Yes [email or web address] Information not available 09/11/2024 What is your exercise level? Moderate Information not available 09/11/2024 Mental Status Question Answer Note LastModified by Organizat ion Details LastModified Time Do you feel stressed (tense, restless, nervous, or anxious, or unable to sleep at night)? [id number] [email or web address] Information not available 09/11/2024 Do you have difficulty concentrating, remembering or making decisions? No [email or web address] Information no t available 09/11/2024 Are you or have you been involved with bullying? No [email or web address] Information not available 09/11/2024 Family History Nothing [...] 0.5 mL 12/10/2020 completed Natalia Wayne NP [address] [place] [address], [address], [facility] [employer] 09/11/2024 15:10:35 Past Encounters Encounter ID Performer Location Encounter Start Date Encounter Closed Date Diagnosis/Indication Diagnosis SNOMED-CT Code Diagnosis ICD10 Code Diagnosis Note [id number] [place] [address] 09/11/2024 13:46:57 09/11/2024 16:07:37 Essential hypertension 15139466 I10 Carcinoma of colon, stage IV 174076487 C18.9 Hyperlipidemia 03163386 E78.5 Normal weight 33504078 Z 68.24 [id number] Natalia Wayne NP [place] [id number] 10/03/2024 10:23:08 10/03/2024 11:18:09 Essential hypertension 69629631 I10 Carcinoma of colon, stage IV 940382830 C18.9 Health Concerns Section Related Observation LastModified by Organization Detai ls LastModified Time None Recorded Concern Status LastModified by Organization Details LastModified Time None Recorded Advance Directives Directive N: Payers Insurance Date Sequence Insurance Name Policy Number Policy Christian Covered Member ID Christian Member ID Guarantor Name 01/01/2025 [place] [employer] [facility] Lashae Wyman [id number] Lashae Wyman 01/01/2025 1 [place] Lashae Wyman [id number] Lashae Wyman Notes Date Note Type Note Provider Name and Address Organization Details Recorded Time 09/11/2024 text/html Patient presents to establish care. Lives with her . 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 No real medical history until recently. Has not seen PCP in years. States that in June she had abdominal pain and vomiting and ultimately passed out and went to [facility]. They did a CT and found [...] She is going to start chemo in [place] next month. She is going to have radiation in [place] after the chemo. She does have a [...] Follows up with their office again November (Rita?). She is on Xarelto x 1 month. Natalia Wayne NP [address] [place], [address], [facility], [employer] 09/13/2024 16:55:34 10/03/2024 text/html Patient presents for [...] pressure is normal. Natalia Wayne NP [address] [place], [address], [facility] 10/04/2024 17:47:56 OBGyn Episode No OBEpisode recorded.
--- OUTSIDE RECORDS SUMMARY | 2025-04-03 14:43 | XMS_ITS | Clinical Summary ---
Author Organization [facility] Address [address] [place] [address] Care Team Providers Care Biostatistics Manager Name Role Phone Natalia Wayne YVONNE Primary Care Provider [phone] Allergies No known active allergies Medications rosuvastatin [...] Encounters Date Type Department Care Team Description 03/31/2025 Telephone [facility] [address] [place] [address] Manoj Fowler MD 03/31/2025 Telephone [facility] [address] [place] [address] Manoj Fowler MD Flexible Sigmoidoscopy 02/13/2025 Orders Only [facility] [address] [place] [address] Cecilia Walters RN Rectal cancer (CMS/HCC) (Primary Dx) 02/04/2025 2:40 PM EDT Office Visit [facility] Multidisciplinary Oncology Clinic [address] [place] [address] Joi Stewart MD Rectal cancer (CMS/HCC) (Primary Dx) 02/04/2025 2:00 PM EDT Office Visit [facility] [address] [place] [address] Manoj Fowler MD Rectal cancer (CMS/HCC) (Primary Dx) 02/04/2025 9:12 AM EDT - 02/04/2025 11:59 PM EDT Hospital Encounter [facility] [address] [place] [address] Rectal cancer (CMS/HCC) Discharge Disposition: Home or Self Care 02/04/2025 Travel 01/28/2025 2:00 PM EDT - 01/28/2025 11:59 PM EDT Hospital Encounter [facility] [address] [place] [address] Rectal cancer (CMS/HCC) (Primary Dx) Discharge Disposition: Home or Self Care 01/28/2025 Travel 01/21/2025 1:24 PM EDT - 01/21/2025 11:59 PM EDT Hospital Encounter [facility] 2 [address] [place] [address] Rectal cancer (CMS/HCC) (Primary Dx) Discharge Disposition: Home or Self Care 01/21/2025 Travel 01/14/2025 1:30 PM EDT - 01/14/2025 11:59 PM EDT Hospital Encounter [facility] [address] [place] [address] Rectal cancer (CMS/HCC) (Primary Dx) Discharge Disposition: Home or Self Care 01/14/2025 Travel 01/08/2025 Clinical Support [facility] Hematology/BMT and Cellular Therapy Program [address] [facility], [facility] [place] [address] Sree Guerrero, PharmD Rectal cancer (CMS/HCC) (Primary Dx) 01/07/2025 12:10 PM EDT - 01/07/2025 11:59 PM EDT Hospital Encounter [facility] [address] [place] [address] Rectal cancer (CMS/HCC) (Primary Dx) Discharge Disposition: Home or Self Care 01/07/2025 10:30 AM EDT - 01/07/2025 12:09 PM EDT Hospital Encounter [facility] 1 [address] [place] [address] Rectal cancer (CMS/HCC) (Primary Dx) Discharge Disposition: Home or Self Care 01/07/2025 9:20 AM EDT Office Visit [facility] Multidisciplinary Oncology Clinic [address] [place] [address] Joi Stewart MD Rectal cancer (CMS/HCC) (Primary Dx) 01/07/2025 9:10 AM EDT Clinical Support [facility] Multidisciplinary Oncology Clinic [address] [place] [address] Rectal cancer (CMS/HCC) 01/07/2025 Travel from Last 3 Months Family History [...] any time in the past [facility] were you homeless or living in a detention (including now)? No 09/02/2024 Utilities Answer Date Recorded In the past 12 months has [employer] electric, gas, oil, or water company threatened [...] Info) Description 04/22/2025 12:40 PM EDT Appointment [facility] [address] [place] [address] 04/22/2025 3:00 PM EDT Office Visit [facility] [address] [place] [address] Joi Stewart MD [address] [facility] Tete Baker [facility] [address] [place] [address] 07/30/2025 1:00 PM EDT Appointment [facility] H Endoscopy [address] [place] [address] Manoj Fowler MD [address] [facility] [address] [place] [address] 08/14/2025 10:[address] [facility] [address] [facility] 5[address] [place] [address] 08/14/2025 11:00 AM EST Office Visit [facility] [address] [facility] 5th [address], [address] [place] [address] Hilary Cordova MD [address] [facility] [address] [place] [address] Health Maintenance Due Date Last Done Comments [facility]-Bone Density Scan 1950 [facility]-Medicare Annual Wellness (AWV) 1950 [facility]-Infant/Child/Adol SDOH Screenings 1950 [facility]-DTaP,Tdap,and Td Vaccine s (1 - Tdap) 1968 [facility]-Pneumococcal Vaccine: 50 + Years (1 of 2 - PCV) 1968 [facility]-Zoster Vaccines (1 of 2) 1968 CT Colonography 1994 FIT-DNA 1994 FIT 1994 FOBT 1994 Sigmoidoscopy 1994 NGY-QJNBY-35 Vaccine (2 - Ja nssen risk series) 01/07/2021 12/10/2020 [facility]-RSV Vaccine: 60+ Years o r (1 - 1-dose 75+ series) 2024 [facility]- SDOH Screenings 03/03/2025 [facility]-Adult SDOH Screenings 03/03/2025 09/02/2024 [facility]-Influenza Vaccine (#1) 2025 [facility]-Lung Cancer Screening 08/06/2025 08/06/2024 [facility]-Depression [...] on patient's age to complete this topic Goals Goal Patient Goal Type Associated Problems Recent Progress Patient-Stated? Author Autogenerat ed Goal Care Plan Autogenerated Problem No Geno Gilbert Procedures Procedure Name Priority Date/Time Associated Diagnosis [...] 01/07/2025 10:13 AM EDT Rectal cancer (CMS/HCC) HEPATITIS C [...] Pretreatment Tumor staging: T3a N+ Prior treatment: SCIENTIST ELECTRONICS completed 01/29 TECHNIQUE: Multiplanar, multisequence MR imaging [...] Pretreatment Tumor staging: T3a N+ Prior treatment: SCIENTIST ELECTRONICS completed 01/29 TECHNIQUE: Multiplanar, multisequence MR imaging of the pelvis was performed on a 3Tmagnet both before and after administration of 6.5 mL of intravenousGadavist contrast. COMPARISON: 08/06/2024: MR pelvis with and without contrast FINDINGS: Treated primary tumor characteristics: Significantly decreased size of thepolypoid lesion in the upper rectum with minimal residual disease. New O8huoloyez hypointense T2 scarring along the left/posterior rectum at thesite of primary tumor. Subtle residual nodular focus of hazy N5fyewqtvaggoo signal along the mucosal/submucosal margin of the left upperrectum at the site of primary tumor (series 7, images 29/30 and series 8,images 43/45), with peripheral T2 dark scarring along the serosal margin.This focus demonstrates hyperenhancement similar to prior as well asrestricted diffusion (series 13, image 28 and series 10/11, sbhqov09/30). An area of T2 intermediate signal along [...] Johann Chopra MD on 02/04/2025 12:47 PM Manoj Fowler MD IMG MRI PROCEDURES Final Resul t * (ABNORMAL) CBC and differential (01/21/2025 2:16 PM EDT) Only the most recent of3 resultswithin the time period is included. WBC Count 7.11 3.70 - 10.30 10*3/uL LAB HEMATOLOGY METHOD 01/21/2025 2:47 PM EDT [facility] RBC Count 3.53(L) 3.90 - 5.20 10*6/uL LAB HEMATOLOGY METHOD 01/21/2025 2:47 PM EDT [facility] HGB 11.8 11.2 - 15.7 g/dL LAB HEMATOLOGY METHOD 01/21/2025 2:47 PM EDT [facility] HCT 34.1 34.0 - 45.0 % LAB HEMATOLOGY METHOD 01/21/2025 2:47 PM EDT [facility] Platelet Count 238 155 - 369 10*3/uL LAB HEMATOLOGY METHOD 01/21/2025 2:47 PM EDT [facility] MCV 97 79 - 98 fL LAB HEMATOLOGY METHOD 01/21/2025 2:47 PM EDT [facility] MCH 33.4(H) 26.0 - 32.0 pg LAB HEMATOLOGY METHOD 01/21/2025 2:47 PM EDT [facility] MCHC 34.6 30.7 - 35.5 g/dL LAB HEMATOLOGY METHOD 01/21/2025 2:47 PM EDT [facility] RDW 14.9(H) 11.5 - 14.5 % LAB HEMATOLOGY METHOD 01/21/2025 2:47 PM EDT [facility] MPV 9.1 8.8 - 12.5 fL LAB HEMATOLOGY METHOD 01/21/2025 2:47 PM EDT [facility] nRBC 0.0 <=0.0 per 100 WBCs LAB HEMATOLOGY METHOD 01/21/2025 2:47 PM EDT [facility] Differential Type Automated LAB HEMATOLOGY METHOD 01/21/2025 2:47 PM EDT [facility] Neutrophils % 75 % LAB HEMATOLOGY METHOD 01/21/2025 2:47 PM EDT [facility] Lymphocytes % 12 % LAB HEMATOLOGY METHOD 01/21/2025 2:47 PM EDT [facility] Monocytes % 9 % LAB HEMATOLOGY METHOD 01/21/2025 2:47 PM EDT [facility] Eosinophils % 3 % LAB HEMATOLOGY METHOD 01/21/2025 2:47 PM EDT [facility] Basophils % 0 % LAB HEMATOLOGY METHOD 01/21/2025 2:47 PM EDT [facility] Immature Granulocytes % 1 % LAB HEMATOLOGY METHOD 01/21/2025 2:47 PM EDT [facility] Neutrophils Absolute 5.26 1.60 - 6.10 10*3/uL LAB HEMATOLOGY METHOD 01/21/2025 2:47 PM EDT [facility] Lymphocytes Absolute 0.86(L) 1.20 - 3.90 10*3/uL LAB HEMATOLOGY METHOD 01/21/2025 2:47 PM EDT [facility] Monocytes Absolute 0.65 0.30 - 0.90 10*3/uL LAB HEMATOLOGY METHOD 01/21/2025 2:47 PM EDT [facility] Eosinophils Absolute 0.23 0.00 - 0.50 10*3/uL LAB HEMATOLOGY METHOD 01/21/2025 2:47 PM EDT [facility] Basophils Absolute 0.03 0.00 - 0.10 10*3/uL LAB HEMATOLOGY METHOD 01/21/2025 2:47 PM EDT [facility] Immature Granulocytes Absolute 0.08(H) 0.00 - 0.06 10*3/uL LAB HEMATOLOGY METHOD 01/21/2025 2:47 PM EDT [facility] Blood Blood sample taken from central line / Unknown (Port) Long-term Catheter / Unknown 01/21/2025 2:16 PM EDT 01/21/2025 2:36 PM EDT Narrative [facility] - 01/21/2025 2:47 PM EDT Therapeutic decision making should be based on absolute values, rather than percentages. us Joi Stewart MD LAB BLOOD ORDERABLES Final Res ult [facility] [address] [place] [address] * (ABNORMAL) Comprehensive metabolic panel (01/21/2025 2:16 PM EDT) Only the most recent of3 resultswithin the time period is included. Glucose, Plasma 120(H) 74 - 99 mg/dL 01/21/2025 3:16 PM EDT [facility] BUN, Plasma 23 8 - 23 mg/dL 01/21/2025 3:16 PM EDT [facility] Creatinine, Plasma 1.62(H) 0.60 - 1.10 mg/dL 01/21/2025 3:16 PM EDT [facility] BUN/Creatinine Ratio 14 01/21/2025 3:16 PM EDT [facility] Sodium, Plasma 136 136 - 145 mmol/L 01/21/2025 3:16 PM EDT [facility] Potassium, Plasma 3.6 3.6 - 4.9 mmol/L 01/21/2025 3:16 PM EDT [facility] Chloride, Plasma 103 97 - 107 mmol/L 01/21/2025 3:16 PM EDT [facility] CO2, Plasma 23 22 - 29 mmol/L 01/21/2025 3:16 PM EDT [facility] Anion Gap 10 6 - 16 mmol/L 01/21/2025 3:16 PM EDT [facility] Total Calcium, Plasma 9.2 8.9 - 10.2 mg/dL 01/21/2025 3:16 PM EDT [facility] Total Protein 5.9(L) 6.3 - 7.9 g/dL 01/21/2025 3:16 PM EDT [facility] Albumin, Plasma 3.7 3.5 - 5.2 g/dL 01/21/2025 3:16 PM EDT [facility] AST, Plasma 11 10 - 35 U/L 01/21/2025 3:16 PM EDT [facility] ALT, Plasma 10 10 - 35 U/L 01/21/2025 3:16 PM EDT [facility] Alkaline Phosphatase, Plasma 59 46 - 142 U/L 01/21/2025 3:16 PM EDT [facility] Total Bilirubin, Plasma 0.3 0.2 - 1.1 mg/dL 01/21/2025 3:16 PM EDT [facility] eGFRcr 33.0 mL/min/1.7 3m*2 01/21/2025 3:16 PM EDT [facility] Comment:Reported eGFRcr in m L/min/1.73m2 is based the CKD-EPI 2020 equation that does not use a race coefficient. Blood Venous blood specimen / Unknown (Port) Long-term Catheter / Unknown 01/21/2025 2:16 PM EDT 01/21/2025 2:45 PM EDT us Joi Stewart MD LAB BLOOD ORDERABLES Final Res ult [facility] [address] [place] [address] * Hepatitis C Antibody - ED (08/31/2024 5:22 PM EST) Hepatitis C Antibody Negative Negative 08/31/2024 6:21 PM EST [facility] Blood Venous blood specimen / Unknown Venipuncture / Unknown 08/31/2024 5:22 PM EST 08/31/2024 5:40 PM EST us Meño Cano MD LAB BLOOD ORDERABLES Final Re sult [facility] [address] [place] [address] * CT Chest w IV Contrast (08/06/2024 [...] medications. Staff Staff Role Robert Bueno Endo Carpentry Supervisor Shruti Gutierrez CRNA CRNA Gantt, Randolph Endo Carpentry Supervisor Richard Borja MD Proceduralist Marcelina Arana Endo [...] of bowel preparation was evaluated using the [place] Bowel Preparation Scale with scores of: right [...] in the rectum; performed cold forceps biopsy Manjo Fowler MD GI PROCEDURE ORDERABLES Final Result from Last 3 Months or Most Recently Relevant to Health Maintenance Additional Health Concerns Active Problems Noted Date Diagnosed Date Autogenerated Problem 03/31/2025 Insurance [employer] [place] [id number] MEDICARE Advance Directives * Full Code (Latest Code Status on File) Date Activated Date Inactivated Comments 09/02/2024 9:48 PM 09/05/2024 12:25 PM Question Answer Comments Patient has decision-making capacity? Yes * Full Code Date Activated Date Inactivated Comments 08/31/2024 7:20 PM 09/02/2024 9:48 PM Question Answer Comments Patient has decision-making capacity? Yes Care Teams Biostatistics Manager Relationship Specialty Start Date End Date Natalia Wayne APRN [address] [place] [address] PCP - General 12/10/24
--- OUTSIDE RECORDS SUMMARY | 2025-04-03 14:44 | XMS_ITS | Encounter Summary ---
Author Organization [facility] Address [address] [place] [address] Care Team Providers Care Pile Driving Technician Name Role Phone Natalia Wayne YVONNE Primary Care Provider [phone] Encounter Details Date Type Department Care Team [...] Info) Description 04/22/2025 12:40 PM EDT Appointment [facility] [address]nd [place] [address] 04/22/2025 3:00 PM EDT Office Visit [facility] [address] [place] [address] Joi Stewart MD [address] [facility] Ttee Baker [facility] [address] [place] [address] 07/30/2025 1:00 PM EDT Appointment [facility] End[facility] [address] [place] [address] Manoj Fowler MD [address] [facility] [address] [place] [address] 08/14/2025 10:00 AM EST Appointment [facility] [address] [facility] [facility] 5th Floor [address], [address] [place] [address] 08/14/2025 11:00 AM EST Office Visit [facility] [address] [facility] 5th Floor [address], [address] [place] [address] Hilary Cordova MD [address] [facility] [address] [place] [address] documented as of this encounter Visit Diagnoses Not on filedocumented in this encounter Additional Health Concerns Assessment Noted Time A fall risk assessment has been complete d for the patient 02/04/2025 2:31 PM EDT A Body Mass Index follow-up plan has been documented for the patient 02/13/2025 10:32 PM EDT documented as of this encounter Care Teams Pile Driving Technician Relationship Specialty Start Date End Date Ntaalia Wayne, YVONNE [address] [place] [address] PCP - General 12/10/24 documented as of this encounter
--- OUTSIDE RECORDS SUMMARY | 2025-04-03 14:44 | XMS_ITS | Encounter Summary ---
Author Organization Healthcare Address [address] [place] [address] Care Team Providers Care Award Machine Operator Name Role Phone Pcp, No Primary Care Provider Natalia Hector APRN Primary Care Provider [phone] Encounter Details Date Type Department Care Team (Late st Contact Info) Description 11/14/2024 Orders Only External Location [address] [place] [address] Provider, External Social History Tobacco Use Types [...] Info) Description 04/22/2025 12:40 PM EDT Appointment [facility] [address] [place] [address] 04/22/2025 3:00 PM EDT Office Visit [facility] [address] [place] [address] Joi Stewart MD [address] [facility] Tete Baker [facility] [address] [place] [address] 07/30/2025 1:00 PM EDT Appointment [facility] [address] [place] [address] Manoj Fowler MD [address] [facility] [address] [place] [address] 08/14/2025 10:00 AM EST Appointment [facility] [address] [facility] 5th Floor [address], [address] [place] [address] 08/14/2025 11:00 AM EST Office Visit [facility] [address] [facility] 5th [address] [place] [address] Hilary Cordova MD [address] [facility] [address] [place] [address] documented as of this encounter [...] documented as of this encounter Care Teams Award Machine Operator Relationship Specialty Start Date End Date Pcp, [place] [address] PCP - General Family Medicine 06/11/24 12/09/24 Natalia Wayne APRN [address] [place] [address] PCP - General 12/10/24 documented as of this encounter
--- OUTSIDE RECORDS SUMMARY | 2025-04-03 14:44 | XMS_ITS | Encounter Summary ---
Author Organization [facility] Address [address] [place] [address] Care Team Providers Care Uniform Force Captain Name Role Phone Natalia Wayne YVONNE Primary Care Provider [phone] Reason for Referral * Imaging (Routine) - Pending Review Specialty Diagnoses / Procedures Referred By Contac t Referred To Contact Radiology Diagnoses Rectal cancer (CMS/HCC) Procedures CT Chest w IV Contrast Joi Stewart MD [address] [address] Phone: tel: fax: Referral ID Status Reason Start Date Expiration Date V isits Requested Visits Authorized [id number] Pending Review 02/13/2025 08/15/2026 1 1 * Imaging (Routine) - Pending Review Specialty Diagnoses / Procedures Referred By Lexii t Referred To Contact Radiology Diagnoses Rectal cancer (CMS/HCC) Procedures CT Abdomen Pelvis w IV Contrast Joi Stewart MD [address] [place] [address] Phone: tel: fax: Referral ID Status Reason Start Date Expiration Date V isits Requested Visits Authorized [id number] Pending Review 02/13/2025 08/15/2026 1 1 Encounter Details Date Type Department Care Team (Late st Contact Info) Description 02/13/2025 Orders Only [facility] [address] [place] [address] Cecilia Walters, RN [id number] Rectal cancer (CMS/HCC) (Primary Dx) [...] were you homeless or living in a prison (including now)? No 09/02/2024 Utilities Answer Date [...] Info) Description 04/22/2025 12:40 PM EDT Appointment [facility] [address] [place] [address] 04/22/2025 3:00 PM EDT Office Visit [facility] [address] [place] [address] Joi Stewart MD [address] [facility] [address] [place] [address] 07/30/2025 1:00 PM EDT Appointment [facility] [address] [place] [phone] Manoj Fowler MD [address] [facility] [address] [place] [address] 08/14/2025 10:00 AM EST Appointment [facility] [address] [place] [address] 5th Floor [address], [address] [place] [address] 08/14/2025 11:00 AM EST Office Visit [facility] [address] [place] [address] Floor [address], [address] [place] [address] Hilary Cordova MD [address] [facility] [address] [place] [address] Scheduled Orders Name Type Priority Associated Diagnoses [...] documented as of this encounter Care Teams Uniform Force Captain Relationship Specialty Start Date End Date Natalia Wayne, YVONNE [address] [place] [address] PCP - General 12/10/24 documented as of this encounter
--- OUTSIDE RECORDS SUMMARY | 2025-04-03 14:44 | XMS_ITS | Encounter Summary ---
Author Organization Healthcare Address [address] [place] [address] Care Team Providers Care Director Of Mechanical Engineering Name Role Phone Natalia Wayne YVONNE Primary Care Provider Reason for Visit * Reason Onset Date Comments Flexible Sigmoidoscopy 03/31/2025 Encounter Details Date Type Department Care Team (Latest Contact Info) Description 03/31/2025 Telephone [facility] [address] [place] [address] Manoj Fowler MD [address] [facility] [address] [place] [address] Flexible Sigmoidoscopy Social History Tobacco Use Types Packs/Day Years [...] as of this encounter Miscellaneous Notes * Telephone Encounter - Joyce Yoo RN - 03/31/2025 2:49 PM EDT Pt returned call to clinic. Discussed recommendations from pt's local medonc re: r/s flex sig due to ongoing chemo treatment. Pt agreeable. Anticipates finishing chemo in approx 3-4 mo. Bilingual Sales Assistant Radha Gilbert notified for r/s flex sig tentatively for late Jul. Pt will call back to clinic if still completing chemo therapy at that time. Pt verbalized understanding. No further questions or concerns. * Telephone Encounter - Joyce Yoo RN - 03/31/2025 1:17 PM EDT Message received from nurse liaison Javad Olivo that Dr. Yip's office ([facility]) is requesting 04/16 flex sig be rescheduled for later. Notes that pt has only received second infusion and will not complete chemo when flex sig is done. LVM with pt requesting call back to clinic to discuss. documented in this encounter Plan of Treatment Upcoming Encounters Date Type Department Care Team (Late st Contact Info) Description 04/22/2025 12:40 PM EDT Appointment [facility] [address] [place] [address] 04/22/2025 3:00 PM EDT Office Visit [facility] [address] [place] [address] Joi Stewart MD 800 [facility] [address] [place] [address] 07/30/2025 1:00 PM EDT Appointment [facility] [address] [place] [address] Manoj Fowler MD [address] [facility] [address] [place] [address] 08/14/2025 10:00 AM EST Appointment [facility] [address] [facility] 5th Floor [address], [address] [place] [address] 08/14/2025 11:00 AM EST Office Visit [facility] [address] [place] [address] Hilary Cordova MD [address] [facility] [address] [place] [address] documented as of this encounter Goals Goal Patient Goal Type Associated Problems Recent Progress Patient-Stated? Author Autogenerat ed Goal Care Plan Autogenerated Problem Mady Gilbert Geno Chaz documented as of this encounter Visit Diagnoses Not on filedocumented in this encounter Additional Health Concerns Active Problems Noted Date Diagnosed Date Autogenerated Problem 03/31/2025 Assessment Noted Time A fall risk assessment has been complete d for the patient 02/04/2025 2:31 PM EDT A Body Mass Index follow-up plan has been documented for the patient 02/13/2025 10:32 PM EDT documented as of this encounter Care Teams Director Of Mechanical Engineering Relationship Specialty Start Date End Date Natalia Wayne, CLAM BED LABORER [address] [place] [address] PCP - General 12/10/24 documented as of this encounter
--- OUTSIDE RECORDS SUMMARY | 2025-04-03 14:44 | XMS_ITS | Encounter Summary ---
Author Organization Healthcare Address [address] [place] [address] Care Team Providers Care Cytology Supervisor Name Role Phone Natalia Wayne YVONNE Primary Care Provider [phone] Encounter Details Date Type Department Care Team (Late st Contact Info) Description 03/31/2025 Telephone [facility] [address] [place] [address] Manoj Fowler MD [address] [place] [address] Social History Tobacco Use Types Packs/Day Years [...] Encounter - Joyce Yoo RN - 03/31/2025 2:58 PM EDT Managed via separate encounter. * Telephone Encounter - Danilo Simon - 03/31/2025 2:49 PM EDT Patient Phone Message Reason for Call: Transferred the pt to Chrissy Dyer contact number and optimal time of day to reach caller: Note: Please do not reply to this message. Follow-up communication and further actions as a result of this message need to be communicated with the patient directly, if the patient is not active onMyChart. If the patient is active on MyChart, they will receive notification of the communication/outcome via MyChart. documented in this encounter Plan of Treatment Upcoming Encounters Date Type Department Care Team (Late st Contact Info) Description 04/22/2025 12:40 PM EDT Appointment [facility] [address] [place] [address] 04/22/2025 3:00 PM EDT Office Visit [facility] [address] [place] [address] Joi Stewart MD 800 [facility] [address] [place] [address] 07/30/2025 1:00 PM EDT Appointment [facility] [address] [place] [address] Manoj Fowler MD [address] [facility] [address] [place] [address] 08/14/2025 10:00 AM EST Appointment [facility] Vascular Lab [address] [facility] 5th Floor [address], [address] [place] [address] 08/14/2025 11:00 AM EST Office Visit [facility] [address] Floor [address], [address] [place] [address] Hilary Cordova MD [address] [facility] [address] [place] [address] documented as of this encounter Goals Goal Patient Goal Type Associated Problems Recent Progress Patient-Stated? Author Autogenerat ed Goal Care Plan Autogenerated Problem Geno Iraheta documented as of this encounter Visit Diagnoses [...] documented as of this encounter Care Teams Cytology Supervisor Relationship Specialty Start Date End Date Natalia Wayne, GEL COAT SPRAYER [address] [place] [address] PCP - General 12/10/24 documented as of this encounter
== END 2025-03-28 11:50 | disposition home or self-care (01) ==
LOC: INF 04-03 14:42
PROVIDERS: Visit Provider Internal Medicine Medical Oncology
DX: C20 Malignant neoplasm of rectum (principal); C77.5 Secondary and unspecified malignant neoplasm of intrapelvic lymph nodes
CPT/HCPCS: 96523; J1642

== ENCOUNTER 2025-04-09 09:18 | Outpatient (CLI) | payer MEDICARE, SELFPAY ==
[2025-04-09 09:20] VITALS: BMI 22.4
--- OUTSIDE RECORDS SUMMARY | 2025-04-09 09:22 | XMS_ITS | Encounter Summary ---
Author Organization Healthcare Address [address] [place] [address] Care Team Providers Care Morgue Technician Name Role Phone Natalia Wayne YVONNE Primary Care Provider [phone] Encounter Details Date Type Department Care Team (Late st Contact Info) Description 03/31/2025 Telephone [facility] [address] [place] [address] Manoj Fowler MD [address] [place] [address] Social History Tobacco Use Types [...] any time in the past 12 m [facility], were you homeless or living in a residential (including now)? No 09/02/2024 Utilities Answer Date [...] Info) Description 04/22/2025 12:40 PM EDT Appointment [facility] [address] 2nd [place] [address] 04/22/2025 3:00 PM EDT Office Visit [facility] [address] [place] [address] Joi Stewart MD [address] [facility] [address] [place] [address] 07/30/2025 1:00 PM EDT Appointment [facility] [address] [place] [address] Manoj Fowler MD [address] [facility] [address] [place] [address] 08/14/2025 10:00 AM EST Appointment [facility] Vascular Lab [address] [facility] 5th Floor [address], [address] [place] [address] 08/14/2025 11:00 AM EST Office Visit [facility] [address], [address] [place] [address] Hilary Cordova MD [address] [facility] [address] [place] [address] documented as of this encounter Goals Goal [...] documented as of this encounter Care Teams Morgue Technician Relationship Specialty Start Date End Date Natalia Wayne, POTLINE MONITOR [address] [place] [address] PCP - General 12/10/24 documented as of this encounter
--- OUTSIDE RECORDS SUMMARY | 2025-04-09 09:22 | XMS_ITS | Encounter Summary ---
Author Organization [facility] Address [address] [place] [address] Care Team Providers Care Electric Range Servicer Name Role Phone Natalia Wayne YVONNE Primary Care Provider [phone] Reason for Referral * Imaging (Routine) - Pending Review Specialty Diagnoses / Procedures Referred By Contac t Referred To Contact Radiology Diagnoses Rectal cancer (CMS/HCC) Procedures CT Chest w IV Contrast Joi Stewart MD [address] [address] Phone: tel: fax: Referral ID Status Reason Start Date Expiration Date V isits Requested Visits Authorized [id number] Pending Review 02/13/2025 08/15/2026 1 1 * Imaging (Routine) - Pending Review Specialty Diagnoses / Procedures Referred By Lexii t Referred To Contact Radiology Diagnoses Rectal cancer (CMS/HCC) Procedures CT Abdomen Pelvis w IV Contrast Joi Stewart MD [address] [place] [address] Phone: tel: fax: Referral ID Status Reason Start Date Expiration Date V isits Requested Visits Authorized [id number] Pending Review 02/13/2025 08/15/2026 1 1 Encounter Details Date Type Department Care Team (Late st Contact Info) Description 02/13/2025 Orders Only [facility] [address] [place] [address] Cecilia Walters, RN [id number] Rectal cancer (CMS/HCC) (Primary Dx) [...] Info) Description 04/22/2025 12:40 PM EDT Appointment [facility] [address] 2nd [place] [address] 04/22/2025 3:00 PM EDT Office Visit [facility] [address] [place] [address] Joi Stewart MD 800 [facility] [address] [place] [address] 07/30/2025 1:00 PM EDT Appointment [facility] [address] [place] [address] Manoj Fowler MD [address] [facility] [address] [place] [address] 08/14/2025 10:00 AM EST Appointment [facility] Vascular Lab [address] [place] [address] 5th Floor [address], [address] [place] [address] 08/14/2025 11:00 AM EST Office Visit [facility] Comprehensive Vascular Clinic [address] [place] [address] Floor [address], [address] [place] [address] Hilary Cordova MD [address] [facility] [address] [place] [address] Scheduled Orders Name Type Priority Associated Diagnoses [...] documented as of this encounter Care Teams Electric Range Servicer Relationship Specialty Start Date End Date Natalia Wayne, YVONNE [address] [place] [address] PCP - General 12/10/24 documented as of this encounter
--- OUTSIDE RECORDS SUMMARY | 2025-04-09 09:22 | XMS_ITS | Clinical Summary ---
Author Organization [facility] Address [address] [place] [address] Care Team Providers Care Csr Name Role Phone Natalia Wayne YVONNE Primary Care Provider [phone] Allergies No known active allergies Medications rosuvastatin [...] 03/31/2025 Telephone [facility] [address] [place] [address] Manoj Fowler MD 03/31/2025 Telephone [facility] [address] [place] [address] Manoj Fowler MD Flexible Sigmoidoscopy 02/13/2025 Orders Only [facility] [address] [place] [address] Cecilia Walters RN Rectal cancer (CMS/HCC) (Primary Dx) 02/04/2025 2:40 PM EDT Office [address] [facility] Multidisciplinary Oncology Clinic [address] [place] [address] Joi Stewart MD Rectal cancer (CMS/HCC) (Primary Dx) 02/04/2025 2:00 PM EDT Office Visit [facility] [address] [place] [address] Manoj Fowler MD Rectal cancer (CMS/HCC) (Primary Dx) 02/04/2025 9:12 AM EDT - 02/04/2025 11:59 PM EDT Hospital Encounter [facility] [address] [place] [address] Rectal cancer (CMS/HCC) Discharge Disposition: Home or Self Care 02/04/2025 Travel 01/28/2025 2:00 PM EDT - 01/28/2025 11:59 PM EDT Hospital Encounter [facility] 1 [address] [place] [address] Rectal cancer (CMS/HCC) (Primary Dx) Discharge Disposition: Home or Self Care 01/28/2025 Travel 01/21/2025 1:24 PM EDT - 01/21/2025 11:59 PM EDT Hospital Encounter [facility] 2 [address] [place] [address] Rectal cancer (CMS/HCC) (Primary Dx) Discharge Disposition: Home or Self Care 01/21/2025 Travel 01/14/2025 1:30 PM EDT - 01/14/2025 11:59 PM EDT Hospital Encounter [facility] Infusion Clinic 2 [address] [place] [address] Rectal cancer (CMS/HCC) (Primary Dx) Discharge Disposition: Home or Self Care 01/14/2025 Travel 01/08/2025 Clinical Support [facility] Hematology/BMT and Cellular Therapy Program [address] [facility], [address] [place] [address] [place] [address] Sree Guerrero, PharmD Rectal cancer (CMS/HCC) (Primary Dx) from Last [...] any time in the past 12 m [facility], were you homeless or living in a usp (including now)? No 09/02/2024 Utilities Answer Date [...] Info) Description 04/22/2025 12:40 PM EDT Appointment [facility] CT [address], [address]nd [place] [address] 04/22/2025 3:00 PM EDT Office Visit [facility] [address] [place] [address] Joi Stewart MD 800 [facility] [address] [place] [address] 07/30/2025 1:00 PM EDT Appointment [facility] [address] [place] [address] Manoj Fowler MD [address] [facility] [address] [place] [address] 08/14/2025 10:00 AM EST Appointment [facility] Vascular Lab [address] [facility] 5th Floor [address], [address] [place] [address] 08/14/2025 11:00 AM EST Office Visit [facility] [address] [facility] 5th Floor [address], [address] [place] [address] Hilary Cordova MD [address] [facility] [address] [place] [address] Health Maintenance Due Date Last Done Comments [facility]-Bone Density Scan 1949 [facility]-Medicare Annual Wellness (AWV) 1949 [facility]-/Child/Adol SDOH Screenings 1949 [facility]-DTaP,Tdap,and Td Vaccine s (1 - Tdap) 1968 [facility]-Pneumococcal Vaccine: 50 + Years (1 of 2 - PCV) 1968 [facility]-Zoster Vaccines (1 of 2) 1968 CT Colonography 1994 FIT-DNA 1994 FIT 1994 FOBT 1994 Sigmoidoscopy 1994 LAC-MOQHN-21 Vaccine (2 - Ja nssen risk series) [...] Goal Care Plan Autogenerated Problem Geno Iraheta Procedures Procedure Name Priority Date/Time Associated Diagnosis [...] 01/14/2025 1:57 PM EDT Rectal cancer (CMS/HCC) HEPATITIS C ANTIBODY [...] Pretreatment Tumor staging: T3a N+ Prior treatment: SUSTAINABILITY OFFICER completed 01/29 TECHNIQUE: Multiplanar, multisequence MR [...] Pretreatment Tumor staging: T3a N+ Prior treatment: SUSTAINABILITY OFFICER completed 01/29 TECHNIQUE: Multiplanar, multisequence MR imaging of the pelvis was performed on a 3Tmagnet both before and after administration of 6.5 mL of intravenousGadavist contrast. COMPARISON: 08/06/2024: MR pelvis with and without contrast FINDINGS: Treated primary tumor characteristics: Significantly decreased size of thepolypoid lesion in the upper rectum with minimal residual disease. New Y5wwuclwdi hypointense T2 scarring along the left/posterior rectum at thesite of primary tumor. Subtle residual nodular focus of hazy K0txynmefywzqw signal along the mucosal/submucosal margin of the left upperrectum at the site of primary tumor (series 7, images 29/30 and series 8,images 43/45), with peripheral T2 dark scarring along the serosal margin.This focus demonstrates hyperenhancement similar to prior as well asrestricted diffusion (series 13, image 28 and series 10/11, mmowmp93/30). An area of T2 intermediate signal along [...] 2:16 PM EDT) Only the most recent of2 resultswithin the time period is included. WBC Count 7.11 3.70 - 10.30 10*3/uL LAB HEMATOLOGY METHOD 01/21/2025 2:47 PM EDT [facility] RBC Count 3.53(L) 3.90 - 5.20 10*6/uL LAB HEMATOLOGY METHOD 01/21/2025 2:47 PM EDT [facility] HGB 11.8 11.2 - 15.7 g/dL LAB HEMATOLOGY METHOD 01/21/2025 2:47 PM EDT [facility] HCT 34.1 34.0 - 45.0 % LAB HEMATOLOGY METHOD 01/21/2025 2:47 PM EDT [facility] Platelet Count 238 155 - 369 10*3/uL LAB HEMATOLOGY METHOD 01/21/2025 2:47 PM EDT [facility] MCV 97 79 - 98 fL LAB HEMATOLOGY METHOD 01/21/2025 2:47 PM EDT [facility] MCH 33.4(H) 26.0 - 32.0 pg LAB HEMATOLOGY METHOD 01/21/2025 2:47 PM EDT [facility] MCHC 34.6 30.7 - 35.5 g/dL LAB HEMATOLOGY METHOD 01/21/2025 2:47 PM EDT [facility] RDW 14.9(H) 11.5 - 14.5 % LAB HEMATOLOGY METHOD 01/21/2025 2:47 PM EDT [facility] MPV 9.1 8.8 - 12.5 fL LAB HEMATOLOGY METHOD 01/21/2025 2:47 PM EDT [facility] nRBC 0.0 <=0.0 per 100 WBCs LAB HEMATOLOGY METHOD 01/21/2025 2:47 PM EDT [facility] Differential Type Automated LAB HEMATOLOGY METHOD 01/21/2025 2:47 PM EDT [facility] Neutrophils % 75 % LAB HEMATOLOGY METHOD 01/21/2025 2:47 PM EDT [facility] Lymphocytes % 12 % LAB HEMATOLOGY METHOD 01/21/2025 2:47 PM EDT [facility] Monocytes % 9 % LAB HEMATOLOGY METHOD 01/21/2025 2:47 PM EDT [facility] Eosinophils % 3 % LAB HEMATOLOGY METHOD 01/21/2025 2:47 PM EDT [facility] Basophils % 0 % LAB HEMATOLOGY METHOD 01/21/2025 2:47 PM EDT [facility] Immature Granulocytes % 1 % LAB HEMATOLOGY METHOD 01/21/2025 2:47 PM EDT [facility] Neutrophils Absolute 5.26 1.60 - 6.10 10*3/uL LAB HEMATOLOGY METHOD 01/21/2025 2:47 PM EDT [facility] Lymphocytes Absolute 0.86(L) 1.20 - 3.90 10*3/uL LAB HEMATOLOGY METHOD 01/21/2025 2:47 PM EDT [facility] Monocytes Absolute 0.65 0.30 - 0.90 10*3/uL LAB HEMATOLOGY METHOD 01/21/2025 2:47 PM EDT [facility] Eosinophils Absolute 0.23 0.00 - 0.50 10*3/uL LAB HEMATOLOGY METHOD 01/21/2025 2:47 PM EDT [facility] Basophils Absolute 0.03 0.00 - 0.10 10*3/uL LAB HEMATOLOGY METHOD 01/21/2025 2:47 PM EDT [facility] Immature Granulocytes Absolute 0.08(H) 0.00 - 0.06 10*3/uL LAB HEMATOLOGY METHOD 01/21/2025 2:47 PM EDT [facility] Blood Blood sample taken from central line / Unknown (Port) Long-term Catheter / Unknown 01/21/2025 2:16 PM EDT 01/21/2025 2:36 PM EDT Narrative [facility] - 01/21/2025 2:47 PM EDT Therapeutic decision making should be based on absolute values, rather than percentages. us Joi Stewart MD LAB BLOOD ORDERABLES Final Res ult [facility] [address] [place] [address] * (ABNORMAL) Comprehensive metabolic panel (01/21/2025 2:16 PM EDT) Only the most recent of2 resultswithin the time period is included. Pathologist [facility] Glucose, Plasma 120(H) 74 - 99 mg/dL 01/21/2025 3:16 PM EDT [facility] BUN, Plasma 23 8 - 23 mg/dL 01/21/2025 3:16 PM EDT [facility] Creatinine, Plasma 1.62(H) 0.60 - 1.10 mg/dL 01/21/2025 3:16 PM EDT [facility] BUN/Creatinine Ratio 14 01/21/2025 3:16 PM EDT [facility] Sodium, Plasma 136 136 - 145 mmol/L 01/21/2025 3:16 PM EDT [facility] Potassium, Plasma 3.6 3.6 - 4.9 mmol/L 01/21/2025 3:16 PM EDT [facility] Chloride, Plasma 103 97 - 107 mmol/L 01/21/2025 3:16 PM EDT [facility] CO2, Plasma 23 22 - 29 mmol/L 01/21/2025 3:16 PM EDT [facility] Anion Gap 10 6 - 16 mmol/L 01/21/2025 3:16 PM EDT [facility] Total Calcium, Plasma 9.2 8.9 - 10.2 mg/dL 01/21/2025 3:16 PM EDT [facility] Total Protein 5.9(L) 6.3 - 7.9 g/dL 01/21/2025 3:16 PM EDT [facility] Albumin, Plasma 3.7 3.5 - 5.2 g/dL 01/21/2025 3:16 PM EDT [facility] AST, Plasma 11 10 - 35 U/L 01/21/2025 3:16 PM EDT [facility] ALT, Plasma 10 10 - 35 U/L 01/21/2025 3:16 PM EDT [facility] Alkaline Phosphatase, Plasma 59 46 - 142 U/L 01/21/2025 3:16 PM EDT [facility] Total Bilirubin, Plasma 0.3 0.2 - 1.1 mg/dL 01/21/2025 3:16 PM EDT [facility] eGFRcr 33.0 mL/min/1.7 3m*2 01/21/2025 3:16 PM EDT [facility] Comment:Reported eGFRcr in m L/min/1.73m2 is based the CKD-EPI 2020 equation that does not use a race coefficient. Blood Venous blood specimen / Unknown (Port) Long-term Catheter / Unknown 01/21/2025 2:16 PM EDT 01/21/2025 2:45 PM EDT us Joi Stewart MD LAB BLOOD ORDERABLES Final Res ult [facility] [address] [place] [address] * Hepatitis C Antibody - ED (08/31/2024 5:22 PM EST) Hepatitis C Antibody Negative Negative 08/31/2024 6:21 PM EST [facility] Blood Venous blood specimen / Unknown Venipuncture / Unknown 08/31/2024 5:22 PM EST 08/31/2024 5:40 PM EST us Meño Cano MD LAB BLOOD ORDERABLES Final Re sult Performing Organization Address City/[facility]/ZIP Co de Phone Number [facility] [address] [place] [address] * CT Chest w IV Contrast (08/06/2024 [...] lytic or sclerotic lesion. Procedure Note Fidel jA MD - 08/06/2024 CLINICAL INDICATION: Colorectal cancer, [...] medications. Staff Staff Role Robert Bueno Endo Die Machine Operator Shruti Gutierrez CRNA CRNA Gantt, Randolph Endo Die Machine Operator Richard Borja MD Proceduralist Marcelina Arana Endo [...] of bowel preparation was evaluated using the [place] Bowel Preparation Scale with scores of: right [...] Date Diagnosed Date Autogenerated Problem 03/31/2025 [facility] [place] [id number] MEDICARE Advance Directives * Full Code (Latest Code Status on File) Date Activated Date Inactivated Comments 09/02/2024 9:48 PM 09/05/2024 12:25 PM Question Answer Comments Patient has decision-making capacity? Yes * Full Code Date Activated Date Inactivated Comments 08/31/2024 7:20 PM 09/02/2024 9:48 PM Question Answer Comments Patient has decision-making capacity? Yes Care Teams Csr Relationship Specialty Start Date End Date Natalia Wayne APRN [address] [place] [address] PCP - General 12/10/24
--- OUTSIDE RECORDS SUMMARY | 2025-04-09 09:22 | XMS_ITS | Encounter Summary ---
Author Organization Healthcare Address [address] [place] [address] Care Team Providers Care Personal Injury Specialist Name Role Phone Natalia Wayne YVONNE Primary Care Provider [phone] Reason for Visit * Reason Onset Date Comments Flexible Sigmoidoscopy 03/31/2025 Encounter Details Date Type Department Care Team (Latest Contact Info) Description 03/31/2025 Telephone [facility] [address] [place] [address] Manoj Fowler MD [address] [facility] [address] [place] [address] Flexible Sigmoidoscopy Social History Tobacco [...] any time in the past 12 m [facility], were you homeless or living [...] Anticipates finishing chemo in approx 3-4 mo. Zoo Keeper Radha Gilbert notified for r/s flex sig tentatively for late Jul. Pt will call back to clinic if still completing chemo therapy at that time. Pt verbalized understanding. No further questions or concerns. * Telephone Encounter - Joyce Yoo RN - 03/31/2025 1:17 PM EDT Message received from nurse liaison Javad Olivo that Dr. Yip's office ([facility]) is requesting 04/16 flex [...] Info) Description 04/22/2025 12:40 PM EDT Appointment [facility] CT [address]nd [place] [address] 04/22/2025 3:00 PM EDT Office Visit [facility] [address] [place] [address] Joi Stewart MD 800 [facility] [address] [place] [address] 07/30/2025 1:00 PM EDT Appointment [facility] [address] [place] [address] Manoj Fowler MD [address] [facility] [address] [place] [address] 08/14/2025 10:00 AM EST Appointment [facility] Vascular Lab [address] [facility] 5th Floor [address] [place] [address] 08/14/2025 11:00 AM EST Office Visit [facility] Comprehensive Vascular Clinic [address] [place] [address] Hilary Cordova MD [address] [facility] [address] [place] [address] documented as of this encounter Goals Goal [...] documented as of this encounter Care Teams Personal Injury Specialist Relationship Specialty Start Date End Date Natalia Wayne, CLOTH HANDLER [address] [place] [address] PCP - General 12/10/24 documented as of this encounter
--- OUTSIDE RECORDS SUMMARY | 2025-04-09 09:22 | XMS_ITS | Encounter Summary ---
Author Organization Healthcare Address [address] [place] [address] Care Team Providers Care Sheet Metal Erector Name Role Phone Pcp, No Primary Care Provider Nataila Hector APRN Primary Care Provider [phone] Encounter Details Date Type Department Care Team (Late st Contact Info) Description 11/14/2024 Orders Only External Location [address] [place] [address] Provider, External Social History Tobacco Use Types [...] Info) Description 04/22/2025 12:40 PM EDT Appointment [facility] [address]nd [place] [address] 04/22/2025 3:00 PM EDT Office Visit [facility] [address] [place] [address] Joi Stewart MD 800 [facility] [address] [facility] [address] [place] [address] 07/30/2025 1:00 PM EDT Appointment [facility] [address] [place] [address] Manoj Fowler MD [address] [facility] [address] [place] [address] 08/14/2025 10:00 AM EST Appointment [facility] Vascular Lab [address] [facility] 5th Floor [address] [place] [address] 08/14/2025 11:00 AM EST Office Visit [facility] Comprehensive Vascular Clinic [address] [facility] 5th Floor [address] [place] [address] Hilary Cordova MD [address] [facility] [address] [place] [address] documented as of this encounter [...] documented as of this encounter Care Teams Sheet Metal Erector Relationship Specialty Start Date End Date Pcp, [place] [address] PCP - General Family Medicine 06/11/24 12/09/24 Natalia Wayne APRN [address] [place] [address] PCP - General 12/10/24 documented as of this encounter
--- OUTSIDE RECORDS SUMMARY | 2025-04-09 09:22 | XMS_ITS ---
Author Organization [facility] Address [address] [place] [address] Care Team Providers Care Migration Agent Name Role Phone Natalia Wayne APRN Primary Care Provider [phone] Active Problems Problem Noted Date Diagnosed Date [...] 5-FU (Adrucil) infusion - for home use ([facility] supplied) CADD 100ML Therapy Complete Joi Stewart MD 1 of 1 cycle started MitoMYcin + Fluorouracil Every 28 Days x 2 + XRT 12/17/19 25 12/13/2024 5-FU CHEMO INFUSION ([facility] SUPPLIED) CADD ORDERABLEmitoMYcin (Mutamycin) Other (See Comments) Joi Stewart MD Treatment not started Resolved Problems Problem Noted Date Diagnosed Date Resolved Date Large bowel obstruction 08/31/2024 120 01/2024
--- OUTSIDE RECORDS SUMMARY | 2025-04-09 09:22 | XMS_ITS | Data Portability ---
Author Organization [employer] [facility] Address [address] [place] [address] Assessment Encounter Date Assessment Date Assessment LastModified [...] Orders lisinopril 10 mg tablet 2024 025 [facility], [address] [place] [address], [address], 5 12:42:46 lisinopril 10 mg tablet 2023 024 [facility], [address] [place] [address], [address], 15:41:55 Patient TargetsNo targets recorded. Patient Instructions Encounter Date Encounter Id Patient Instructions Last Modified By Organization Details Last Modified Time 09/11/2024 [id number] high blood pressure: care instructions [facility] Not available 09/11/2024 15:20:14 learning about high blood pressure Not available 09/11/2024 15:20:14 high cholesterol : care instructions [facility] Not available 09/13/2024 16:54:02 Reason for Referral None Reported. Results Created Date Observation Date Name Description Value Unit Range Abnormal Flag Note LastModifiedBy Organization Detail LastModifiedTime 10/21/19 25 10/21/2024 HCV antib britney servando alfaro, reai ngful use set HCV Ab normal Not Available [facility] (Lab) [address], [place], [address], 10/21/2024 15:09:59 10/21/19 25 10/21/2024 CT, chest , w/o contr ast No observ ation record ed. [address] [facility], [place], [address], 10/21/2024 15:21:14 10/21/19 25 10/21/2024 CT, abdom en + pelvi s, w/o contr ast No observ ation record ed. [address] [facility], [place], [address], 10/21/2024 15:23:15 10/22/19 25 10/21/2024 elect dominic parrgr am, routi ne ECG, 12 leads min; inter preta tion and repor t (PROC ) No observ ation record ed. [address] [facility], [place], [address], 10/23/2024 10:18:59 11/14/19 25 11/14/2024 MR, angio gram, abdom en, w/wo contr ast No observ ation record ed. [address] [facility], [place], [address], 11/21/2024 10:32:46 Result Notes None recorded. Problems Name Problem SNOMED Code Status Onset Date Resolution Date Notes Provider Name and Address Organization Details Recorded Time Essential hypertension 23704745 Active 2023 Natalia Wayne, STACE[address] [place], [address], [employer] 16:54:24 Carcinoma of colon, stage IV 126489384 Active 2023 Natalia Wayne NP [address] [place], [address], [employer] 16:54:23 Hyperlipidemia 31371576 Active 2023 Natalia Wayne NP [address] [place], [address], [employer] 16:54:26 Problem Notes None recorded. Medical [...] Updated DateTime 5 170.18 cm 24.5 kg/m2 48054.1 1 g 75 /min 97 % 97 % 144/86 mm[Hg] 163/76 mm[Hg] 139/84 mm[Hg] Oksana Reddy [employer] 5 10:44:34 Date Recorded Body height Body mass index (BMI) Body weight Heart rate Oxygen saturation Oxygen saturation in Arterial blood by Pulse oximetry Systolic And Diastolic Systolic And Diastolic Systolic And Diastolic Provider Name and Address Organization Details Last Updated DateTime 4 170.18 cm 24.3 kg/m2 87193.9 2 g 72 /min 97 % 97 % 177/84 mm[Hg] 182/82 mm[Hg] 174/86 mm[Hg] Oksana Reddy [employer] 4 14:56:23 Social History Question Answer Notes LastModified by Organizat ion Details LastModified Time Tobacco Smoking Status Current Every Day Smoker Oksana Reddy [employer] 09/11/2024 14:56:35 Do You Have An Advance Directive? No [email or web address] Information n ot available 09/11/2024 Is Your Home Air Conditioned? Yes [email or web address] Information not available 09/11/2024 Do You Wear A Helmet When Biking? No [email or web address] Information not available 09/11/2024 Are You Blind Or Do You Have Difficulty Seeing? No [email or web address] Information n ot available 09/11/2024 What Is Your Level Of Caffeine Consumption? Moderate [email or web address] Information not available 09/11/2024 What Type Of Marketing Mgr Do You Use? None [email or web address] Information not available 09/11/2024 In The 14 Days Before Symptom Onset, Have You Had Close Contact With A Laboratory-confirm ed COVID-19 While That Case Was Ill? No Information n ot available 09/11/2024 In The 14 Days Before Symptom Onset, Have You Had Close Contact With A Person Who Is Under Investigation For COVID-19 While That Person Was Ill? No [email or web address] Information not available 09/11/2024 Have You Been To An Area Known To Be High Risk For COVID-19? No [email or web address] Information not available 09/11/2024 Are You Deaf Or Do You Have Serious Difficulty Hearing? No [email or web address] Information not available 09/11/2024 What Type Of Diet Are You Following? REGULAR [email or web address] Information n ot available 09/11/2024 How Many Days Of Moderate To Strenuous Exercise, Like A Brisk Walk, Did You Do In The Last 7 Days? 3 [email or web address] Information not available 09/11/2024 Are There Any Guns Present In Your Home? Yes [email or web address] Information not available 09/11/2024 Which Of Your Hands Is Dominant? Right [email or web address] Information n ot available 09/11/2024 Do You Have A Medical Power Of Raisin Washer? No Information not available 09/11/2024 What Was The Date Of Your Most Recent Tobacco Screening? 10/03/2024 [email or web address] Information not available 10/03/2024 Do You Have Any Pets? Yes [email or web address] Information not available 09/11/2024 What Is Your Relationship Status? Information not available 09/11/2024 Have You Repeated Any Grades? No [email or web address] Information not available 09/11/2024 Do You Use Your Seat Belt Or Car Seat Routinely? Yes [email or web address] Information not available 09/11/2024 Are You Sexually Active? No [email or web address] Information not available 09/11/2024 Do You Have Any Siblings? Shae Mcfadden samapv476 Information not available 09/11/2024 Do You Have Smoke And Carbon Monoxide Detectors In Your Home? No [email or web address] Information not available 09/11/2024 At What Age Did You Start Smoking Tobacco? 17 Information not available 09/11/2024 Are You Passively Exposed To Smoke? Yes [email or web address] Information no t available 09/11/2024 Are There Any Smokers In Your House? Yes [email or web address] Information not available 09/11/2024 How Much Tobacco Do You Smoke? 0.5 PPD [email or web address] Information not available 09/11/2024 Do You Participate In Social Media? Yes [email or web address] Information not available 09/11/2024 Do You Use Sunscreen Routinely? No Information not available 09/11/2024 Has Tobacco Cessation Counseling Been Provided? No Information not available 09/11/2024 How Many Years Have You Smoked Tobacco? 60 [email or web address] Information not available 09/11/2024 Have You Recently Traveled Abroad? No [email or web address] Information not available 09/11/2024 Do You Have Difficulty Walking Or Climbing Stairs? No [email or web address] Information not available 09/11/2024 Are You Currently In School? No [email or web address] Information not available 09/11/2024 Do You Have Any Dietary Restrictions? No [email or web address] Information not available 09/11/2024 Sex: Female Functional Status Question Answer Note LastModified by Organizat ion Details LastModified Time Do you use any illicit or recreational drugs? No [email or web address] Information not available 09/11/2024 Do you or have you ever used any other forms of tobacco or nicotine? No Information not available 09/11/2024 What is your level of alcohol consumption? None [email or web address] Information not available 09/11/2024 Are you currently employed? No [email or web address] Information not available 09/11/2024 Do you have transportation difficulties? No lkjepu792 Information not available 09/11/2024 Are you able to walk? YESWOREST Information not available 09/11/2024 Do you have difficulty doing errands alone? No [email or web address] Information not available 09/11/2024 Are you able to care for yourself? Yes Information not available 09/11/2024 Do you have difficulty dressing or bathing? Yes [email or web address] Information not available 09/11/2024 What is your exercise level? Moderate [email or web address] Information not available 09/11/2024 Mental Status Question Answer Note LastModified by Organizat ion Details LastModified Time Do you feel stressed (tense, restless, nervous, or anxious, or unable to sleep at night)? [id number] Information not available 09/11/2024 Do you have difficulty concentrating, remembering or making decisions? No Information no t available 09/11/2024 Are you or have you been involved with bullying? No [email or web address] Information not available 09/11/2024 Family History Nothing [...] 0.5 mL 12/10/2020 completed Natalia Wayne NP [address] [place] [address], [address], [facility] [employer] 09/11/2024 15:10:35 Past Encounters Encounter ID Performer Location Encounter Start Date Encounter Closed Date Diagnosis/Indication Diagnosis SNOMED-CT Code Diagnosis ICD10 Code Diagnosis Note [id number] [place] [address] 09/11/2024 13:46:57 09/11/2024 16:07:37 Essential hypertension 24755612 I10 Carcinoma of colon, stage IV 431361848 C18.9 Hyperlipidemia 73108436 E78.5 Normal weight 13957744 Z 68.24 [id number] Natalia Wayne NP [place] [phone] 10/03/2024 10:23:08 10/03/2024 11:18:09 Essential hypertension 93620286 I10 Carcinoma of colon, stage IV 416401673 C18.9 Health Concerns Section Related Observation LastModified by Organization Detai ls LastModified Time None Recorded Concern Status LastModified by Organization Details LastModified Time None Recorded Advance Directives Directive N: Payers Insurance Date Sequence Insurance Name Policy Number Policy Christian Covered Member ID Christian Member ID Guarantor Name 01/01/2025 [place] [employer] [facility] Lashae Wyman [id number] Lashae Wyman 01/01/2025 1 [place] Lashae Wyman [id number] Lashae Wyman Notes Date Note Type Note Provider Name and Address Organization Details Recorded Time 09/11/2024 text/html Patient presents to establish care. Lives with her . 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 Has not seen PCP in years. States that in June she had abdominal pain and vomiting and ultimately passed out and went to [facility]. They did a CT and [...] She is going to start chemo in [place] next month. She is going to have radiation in [place] after the chemo. She does have a [...] x 1 month. Natalia Wayne NP [address] [place], [address], [employer]. 09/13/2024 16:55:34 10/03/2024 text/html Patient presents for [...] pressure is normal. Natalia Wayne NP [address] [place], [address], [employer] 10/04/2024 17:47:56 OBGyn Episode No OBEpisode recorded.
[2025-04-09 09:39] LABS: Hematocrit 35.7 % (37.0-47.0); Hemoglobin 11.9 g/dL (12.2-16.2); Immature Granulocytes % 0.3 %; Mean Corpuscular HGB Conc 33.3 g/dL (31.8-35.4); Mean Corpuscular Hemoglobin 32.6 pg (27.0-31.2); Mean Corpuscular Volume 97.8 fl (81-99); Nucleated Red Blood Cells % 0 %; Platelet Count 170 K/mm3 (142-424); Red Blood Count 3.65 M/mm3 (4.20-5.40); Red Cell Distribution Width-SD 52.7 fL; White Blood Count 5.9 K/mm3 (4.8-10.8)
[2025-04-09 09:58] LABS: Alanine Aminotransferase 15 U/L (12-78); Albumin Level 4.0 g/dl (3.5-5.0); Albumin/Globulin Ratio 1.4 (1.1-1.8); Alkaline Phosphatase 72 U/L (38-126); Anion Gap 12.9 mEq/L (5-15); Aspartate Amino Transferase 23 U/L (14-36); Bilirubin,Total 0.6 mg/dl (0.2-1.3); Blood Urea Nitrogen 21 mg/dl (7-17); Calcium 9.6 mg/dl (8.4-10.2); Carbon Dioxide 25 mmol/L (22.0-30.0); Chloride 104 mmol/L (98-107); Creatinine Clearance Estimated 31 mL/min (50-200); Creatinine,Serum 1.60 mg/dl (0.52-1.04); Estimated Glomerular Filt Rate 31 ml/min (>60); GFR (African American) 38 ML/MIN (>60); Globulin 2.8 g/dL (1.3-3.2); Glucose 92 mg/dl (74-100); Potassium 3.9 mmoL/L (3.5-5.1); Sodium 138 mmol/L (136-145); Total Protein,Serum 6.8 g/dl (6.3-8.2)
[2025-04-09 10:31] VITALS: BP 161/77; PULSE 61; RESP 20; TEMP 36.7; O2SAT 100
[2025-04-09] MEDS: POTASSIUM CHLORIDE 20MEQ TAB 40 MEQ PO (10:31)
[2025-04-09] MEDS: DEXAMETHASONE 4MG TABLET 12 MG PO (10:31)
[2025-04-09] MEDS: ONDANSETRON 4MG ODT 16 MG SL (10:31)
[2025-04-09] MEDS: SODIUM CHLORIDE 0.9% 10ML FLUSH SYRINGE 10 ML IV (10:53)
[2025-04-09 11:22] VITALS: BP 170/86; PULSE 61; RESP 20; O2SAT 99
[2025-04-09] MEDS: DEXTROSE 5% IV ×2 (11:22)
[2025-04-09] MEDS: WATER IV ×2 (11:22)
[2025-04-09] MEDS: DEXTROSE 5 % IN WATER 100 ML 25 ML IV (11:22)
[2025-04-09] MEDS: LEUCOVORIN CALCIUM IV (11:22)
[2025-04-09] MEDS: OXALIPLATIN IV (11:22)
[2025-04-09 11:52] VITALS: BP 166/78; PULSE 60; RESP 18; O2SAT 100
[2025-04-09 12:22] VITALS: BP 151/78; PULSE 58; RESP 18; O2SAT 100
[2025-04-09 12:52] VITALS: BP 155/74; PULSE 61; RESP 18; O2SAT 99
[2025-04-09 13:27] VITALS: BP 148/65; PULSE 59; RESP 20; O2SAT 100
[2025-04-09] MEDS: FLUOROURACIL 500MG/10ML VIAL 700 MG IV (13:30)
[2025-04-09] MEDS: FLUOROURACIL IV (13:31)
[2025-04-09] MEDS: SODIUM CHLORIDE IV (13:31)
== END 2025-04-09 13:40 | disposition home or self-care (01) ==
LOC: INF 09:19
PROVIDERS: PCP Nurse Practitioner Family; Visit Provider Internal Medicine Medical Oncology
DX: C20 Malignant neoplasm of rectum (principal); Z51.11 Encounter for antineoplastic chemotherapy
CPT/HCPCS: 80053; 85025; 96368; 96411; 96413; 96415; 96416; J0640; J1642; J7060; J8540; J9190; J9263; Q0162

== ENCOUNTER 2025-04-11 11:57 | Outpatient (CLI) | payer MEDICARE, SELFPAY ==
--- OUTSIDE RECORDS SUMMARY | 2025-04-11 11:59 | XMS_ITS ---
Author Organization [facility] Address [address] [place] [address] Care Team Providers Care Mobility Architect Manager Name Role Phone Natalia Wayne APRN Primary Care Provider [phone] Active Problems Problem Noted Date Diagnosed Date [...] 5-FU (Adrucil) infusion - for home use ([facility] supplied) CADD 100ML Therapy Complete Joi Stewart MD 1 of 1 cycle started MitoMYcin + Fluorouracil Every 28 Days x 2 + XRT 12/17/19 25 12/13/2024 5-FU CHEMO INFUSION ([facility] SUPPLIED) CADD ORDERABLEmitoMYcin (Mutamycin) Other (See Comments) Joi Stewart MD Treatment not started Resolved Problems Problem Noted Date Diagnosed Date Resolved Date Large bowel obstruction 08/31/2024 120 01/2024
--- OUTSIDE RECORDS SUMMARY | 2025-04-11 11:59 | XMS_ITS | Data Portability ---
Author Organization [employer] [place] [facility] Address [address] [place] [address] Assessment Encounter Date Assessment Date Assessment LastModified [...] Orders lisinopril 10 mg tablet 2024 025 [facility], [address] [place] [address], [address], 5 12:42:46 lisinopril 10 mg tablet 2023 024 [facility], [address] [place] [address], [address], 15:41:55 Patient TargetsNo targets recorded. Patient Instructions Encounter Date Encounter Id Patient Instructions Last Modified By Organization Details Last Modified Time 09/11/2024 [id number] high blood pressure: care instructions [facility] Not available 09/11/2024 15:20:14 learning about high blood pressure Not available 09/11/2024 15:20:14 high cholesterol : care instructions [facility] Not available 09/13/2024 16:54:02 Reason for Referral None Reported. Results Created Date Observation Date Name Description Value Unit Range Abnormal Flag Note LastModifiedBy Organization Detail LastModifiedTime 10/21/19 25 10/21/2024 HCV antib britney servando alfaro, reai ngful use set HCV Ab normal Not Available [facility] (Lab) [address], [place], [address], 10/21/2024 15:09:59 10/21/19 25 10/21/2024 CT, chest , w/o contr ast No observ ation record ed. [address] [facility], [place], [address], 10/21/2024 15:21:14 10/21/19 25 10/21/2024 CT, abdom en + pelvi s, w/o contr ast No observ ation record ed. [address] [facility], [place], [address], 10/21/2024 15:23:15 10/22/19 25 10/21/2024 elect dominic parrgr am, routi ne ECG, 12 leads min; inter preta tion and repor t (PROC ) No observ ation record ed. [address] [facility], [place], [address], 10/23/2024 10:18:59 11/14/19 25 11/14/2024 MR, angio gram, abdom en, w/wo contr ast No observ ation record ed. [address] [facility], [place], [address], 11/21/2024 10:32:46 Result Notes None recorded. Problems Name Problem SNOMED Code Status Onset Date Resolution Date Notes Provider Name and Address Organization Details Recorded Time Essential hypertension 84130860 Active 2023 Natalia Wayne, [address] [place], [address], [employer] 16:54:24 Carcinoma of colon, stage IV 136644882 Active 2023 Natalia Wayne NP [address] [place], [address], [employer] 16:54:23 Hyperlipidemia 58779773 Active 2023 Natalia Wayne NP [address] [place], [address], [employer] 16:54:26 Problem Notes None recorded. Medical [...] Updated DateTime 5 170.18 cm 24.5 kg/m2 41202.1 1 g 75 /min 97 % 97 % 144/86 mm[Hg] 163/76 mm[Hg] 139/84 mm[Hg] Oksana Reddy [employer] 5 10:44:34 Date Recorded Body height Body mass index (BMI) Body weight Heart rate Oxygen saturation Oxygen saturation in Arterial blood by Pulse oximetry Systolic And Diastolic Systolic And Diastolic Systolic And Diastolic Provider Name and Address Organization Details Last Updated DateTime 4 170.18 cm 24.3 kg/m2 03142.9 2 g 72 /min 97 % 97 % 177/84 mm[Hg] 182/82 mm[Hg] 174/86 mm[Hg] Oksana Reddy [employer] 4 14:56:23 Social History Question Answer Notes LastModified by Organizat ion Details LastModified Time Tobacco Smoking Status Current Every Day Smoker Oksana Reddy [employer] 09/11/2024 14:56:35 Do You Have An Advance Directive? No [email or web address] Information n ot available 09/11/2024 Is Your Home Air Conditioned? Yes Information not available 09/11/2024 Do You Wear A Helmet When Biking? No Information not available 09/11/2024 Are You Blind Or Do You Have Difficulty Seeing? No [email or web address] Information n ot available 09/11/2024 What Is Your Level Of Caffeine Consumption? Moderate [email or web address] Information not available 09/11/2024 What Type Of Group Underwriter Do You Use? None [email or web address] Information not available 09/11/2024 In The 14 Days Before Symptom Onset, Have You Had Close Contact With A Laboratory-confirm ed COVID-19 While That Case Was Ill? No Information n ot available 09/11/2024 In The 14 Days Before Symptom Onset, Have You Had Close Contact With A Person Who Is Under Investigation For COVID-19 While That Person Was Ill? No [email or web address] Information not available 09/11/2024 Have You Been To An Area Known To Be High Risk For COVID-19? No [email or web address] Information not available 09/11/2024 Are You Deaf Or Do You Have Serious Difficulty Hearing? No bthlno472 Information not available 09/11/2024 What Type Of Diet Are You Following? REGULAR fuiqcb911 Information n ot available 09/11/2024 How Many Days Of Moderate To Strenuous Exercise, Like A Brisk Walk, Did You Do In The Last 7 Days? 3 Information not available 09/11/2024 Are There Any Guns Present In Your Home? Yes [email or web address] Information not available 09/11/2024 Which Of Your Hands Is Dominant? Right [email or web address] Information n ot available 09/11/2024 Do You Have A Medical Power Of Braided Rug Maker? No [email or web address] Information not available 09/11/2024 What Was The Date Of Your Most Recent Tobacco Screening? 10/03/2024 Information not available 10/03/2024 Do You Have Any Pets? Yes [email or web address] Information not available 09/11/2024 What Is Your Relationship Status? Information not available 09/11/2024 Have You Repeated Any Grades? No Information not available 09/11/2024 Do You Use Your Seat Belt Or Car Seat Routinely? Yes [email or web address] Information not available 09/11/2024 Are You Sexually Active? No [email or web address] Information not available 09/11/2024 Do You Have Any Siblings? Shae Mcfadden leujvg714 Information not available 09/11/2024 Do You Have Smoke And Carbon Monoxide Detectors In Your Home? No [email or web address] Information not available 09/11/2024 At What Age Did You Start Smoking Tobacco? 17 [email or web address] Information not available 09/11/2024 Are You Passively Exposed To Smoke? Yes Information no t available 09/11/2024 Are There Any Smokers In Your House? Yes Information not available 09/11/2024 How Much Tobacco Do You Smoke? 0.5 PPD [email or web address] Information not available 09/11/2024 Do You Participate In Social Media? Yes Information not available 09/11/2024 Do You Use Sunscreen Routinely? No [email or web address] Information not available 09/11/2024 Has Tobacco Cessation Counseling Been Provided? No Information not available 09/11/2024 How Many Years Have You Smoked Tobacco? 60 [email or web address] Information not available 09/11/2024 Have You Recently Traveled Abroad? No [email or web address] Information not available 09/11/2024 Do You Have Difficulty Walking Or Climbing Stairs? No [email or web address] Information not available 09/11/2024 Are You Currently In School? No [email or web address] Information not available 09/11/2024 Do You Have Any Dietary Restrictions? No virvnv130 Information not available 09/11/2024 Sex: Female Functional Status Question Answer Note LastModified by Organizat ion Details LastModified Time Do you use any illicit or recreational drugs? No lrlqse422 Information not available 09/11/2024 Do you or have you ever used any other forms of tobacco or nicotine? No [email or web address] Information not available 09/11/2024 What is your level of alcohol consumption? None [email or web address] Information not available 09/11/2024 Are you currently employed? No [email or web address] Information not available 09/11/2024 Do you have transportation difficulties? No pytaki759 Information not available 09/11/2024 Are you able to walk? YESWOREST eismxp890 Information not available 09/11/2024 Do you have difficulty doing errands alone? No bitbpj339 Information not available 09/11/2024 Are you able to care for yourself? Yes Information not available 09/11/2024 Do you have difficulty dressing or bathing? Yes [email or web address] Information not available 09/11/2024 What is your exercise level? Moderate uvnwga157 Information not available 09/11/2024 Mental Status Question Answer Note LastModified by Organizat ion Details LastModified Time Do you feel stressed (tense, restless, nervous, or anxious, or unable to sleep at night)? [id number] [email or web address] Information not available 09/11/2024 Do you have difficulty concentrating, remembering or making decisions? No [email or web address] Information no t available 09/11/2024 Are you or have you been involved with bullying? No optdyj073 Information not available 09/11/2024 Family History Nothing [...] 0.5 mL 12/10/2020 completed Natalia Wayne NP [address] [place] [address], [address], [facility] [employer] 09/11/2024 15:10:35 Past Encounters Encounter ID Performer Location Encounter Start Date Encounter Closed Date Diagnosis/Indication Diagnosis SNOMED-CT Code Diagnosis ICD10 Code Diagnosis Note [id number] Natal[place] [address] 09/11/2024 13:46:57 09/11/2024 16:07:37 Essential hypertension 27258733 I10 Carcinoma of colon, stage IV 343729387 C18.9 Hyperlipidemia 30456594 E78.5 Normal weight 05500115 Z 68.24 [id number] Natalia Wayne NP [place] [phone] 10/03/2024 10:23:08 10/03/2024 11:18:09 Essential hypertension 17971786 I10 Carcinoma of colon, stage IV 528482590 C18.9 Health Concerns Section Related Observation LastModified by Organization Detai ls LastModified Time None Recorded Concern Status LastModified by Organization Details LastModified Time None Recorded Advance Directives Directive N: Payers Insurance Date Sequence Insurance Name Policy Number Policy Christian Covered Member ID Christian Member ID Guarantor Name 01/01/2025 [place] [employer] [facility] Lashae Wyman [id number] Lashae Wyman 01/01/2025 1 [place] Lashae Wyman [id number] Lashae Wyman Notes Date Note Type Note Provider Name and Address Organization Details Recorded Time 09/11/2024 text/html Patient presents to establish care. Lives with her . 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 Has not seen PCP in years. States that in June she had abdominal pain and vomiting and ultimately passed out and went to [facility]. They did a CT and found out [...] She is going to start chemo in [place] next month. She is going to have radiation in [place] after the chemo. She does have a [...] x 1 month. Natalia Wayne NP [address] [place], [address], [employer]. 09/13/2024 16:55:34 10/03/2024 text/html Patient presents for [...] pressure is normal. Natalia Wayne NP [address] [place], [address], [employer] 10/04/2024 17:47:56 OBGyn Episode No OBEpisode recorded.
--- OUTSIDE RECORDS SUMMARY | 2025-04-11 11:59 | XMS_ITS | Encounter Summary ---
Author Organization Healthcare Address [address] [place] [address] Care Team Providers Care Websphere Process Server Developer Name Role Phone Natalia Wayne YVONNE Primary Care Provider [phone] Reason for Visit * Reason Onset Date Comments Flexible Sigmoidoscopy 03/31/2025 Encounter Details Date Type Department Care Team (Latest Contact Info) Description 03/31/2025 Telephone [facility] [address] [place] [address] Manoj Fowler MD [address] [facility] [address] [place] [address] Flexible Sigmoidoscopy Social History Tobacco [...] any time in the past 12 m [facility], were you homeless or living in a [...] Anticipates finishing chemo in approx 3-4 mo. Stripping Shovel Oiler Radha Gilbert notified for r/s flex sig tentatively for late Jul. Pt will call back to clinic if still completing chemo therapy at that time. Pt verbalized understanding. No further questions or concerns. * Telephone Encounter - Joyce Yoo RN - 03/31/2025 1:17 PM EDT Message received from nurse liaison Javad Olivo that Dr. Yip's office ([facility]) is requesting 04/16 flex sig be rescheduled for later. Notes that pt has only received second infusion and will not complete chemo when flex sig is done. LVM with pt requesting call back to clinic to discuss. documented in this encounter Plan of Treatment Upcoming Encounters Date Type Department Care Team (Late st Contact Info) Description 04/22/2025 12:40 PM EDT Appointment [facility] [address] [place] [address] 04/22/2025 3:00 PM EDT Office Visit [facility] [address] [place] [address] Joi Stewart MD [address] [facility] [address] [place] [address] 07/30/2025 1:00 PM EDT Appointment [facility] [address] [place] [address] Manoj Fowler MD [address] [facility] [address] [place] [address] 08/14/2025 10:00 AM EST Appointment [facility] [address] [facility] 5th Floor [address], [address] [place] [address] 08/14/2025 11:00 AM EST Office Visit [facility] [address], [address] [place] [address] Hilary Cordova MD [address] [facility] [address] [place] [address] documented as of this encounter Goals Goal [...] documented as of this encounter Care Teams Websphere Process Server Developer Relationship Specialty Start Date End Date Natalia Wayne, SALES EXECUTIVE [address] [place] [address] PCP - General 12/10/24 documented as of this encounter
--- OUTSIDE RECORDS SUMMARY | 2025-04-11 11:59 | XMS_ITS | Encounter Summary ---
Author Organization [facility] Address [address] [place] [address] Care Team Providers Care Director Group Sales Name Role Phone Natalia Wayne YVONNE Primary Care Provider [phone] Reason for Referral * Imaging (Routine) - Authorized Specialty Diagnoses / Procedures Referred By Kimberlyac t Referred To Contact Radiology Diagnoses Rectal cancer (CMS/HCC) Procedures CT Chest w IV Contrast Joi Stewart MD [address] [address] Phone: tel: fax: Referral ID Status Reason Start Date Expiration Date V isits Requested Visits Authorized [id number] Authorized 02/13/2025 08/15/2026 1 1 * Imaging (Routine) - Authorized Specialty Diagnoses / Procedures Referred By Contac t Referred To Contact Radiology Diagnoses Rectal cancer (CMS/HCC) Procedures CT Abdomen Pelvis w IV Contrast Joi Stewart MD [address] [address] Phone: tel: fax: Referral ID Status Reason Start Date Expiration Date V isits Requested Visits Authorized [id number] Authorized 02/13/2025 08/15/2026 1 1 Encounter Details Date Type Department Care Team (Late st Contact Info) Description 02/13/2025 Orders Only [facility] [address] [place] [address] Cecilia Walters, RN [id number] Rectal cancer (CMS/HCC) (Primary Dx) [...] Info) Description 04/22/2025 12:40 PM EDT Appointment [facility] [address] [place] [address] 04/22/2025 3:00 PM EDT Office Visit [facility] [address] [place] [address] Joi Stewart MD [address] [facility] [address] [place] [address] 07/30/2025 1:00 PM EDT Appointment [facility] [address] [place] [phone] Manoj Fowler MD [address] [facility] [address] [place] [address] 08/14/2025 10:[address] [facility] [address] [place] [address] 5th Floor [address], [address] [place] [address] 08/14/2025 11:00 AM EST Office Visit [facility] [address] [place] [address] [address], [address] [place] [address] Hilary Cordova MD [address] [facility] [address] [place] [address] Scheduled Orders Name Type Priority Associated Diagnoses [...] as of this encounter Care Teams Director Group Sales Relationship Specialty Start Date End Date Natalia Wayne, METER TECHNICIAN [address] [place] [address] PCP - General 12/10/24 documented as of this encounter
--- OUTSIDE RECORDS SUMMARY | 2025-04-11 11:59 | XMS_ITS | Clinical Summary ---
Author Organization [facility] Address [address] [place] [address] Care Team Providers Care Medical Librarian Name Role Phone Natalia Wayne YVONNE Primary Care Provider [phone] Allergies No known active allergies Medications rosuvastatin [...] 03/31/2025 Telephone [facility] [address] [place] [address] Manoj Fowler MD 03/31/2025 Telephone [facility] [address] [place] [address] Manoj Fowler MD Flexible Sigmoidoscopy 02/13/2025 Orders Only [facility] [address] [place] [address] Cecilia Walters RN Rectal cancer (CMS/HCC) (Primary Dx) 02/04/2025 2:40 PM EDT Office Visit [facility] [address] [place] [address] Joi Stewart MD Rectal cancer (CMS/HCC) (Primary Dx) 02/04/2025 2:00 PM EDT Office Visit [facility] [address] [place] [address] Manoj Fowler MD Rectal cancer (CMS/HCC) (Primary Dx) 02/04/2025 9:12 AM EDT - 02/04/2025 11:59 PM EDT Hospital Encounter [facility] [address] [place] [address] Rectal cancer (CMS/HCC) Discharge Disposition: Home or Self Care 02/04/2025 Travel 01/28/2025 2:00 PM EDT - 01/28/2025 11:59 PM EDT Hospital Encounter [facility] [address] [place] [address] Rectal cancer (CMS/HCC) (Primary Dx) Discharge Disposition: Home or Self Care 01/28/2025 Travel 01/21/2025 1:24 PM EDT - 01/21/2025 11:59 PM EDT Hospital Encounter [facility] [address] [place] [address] Rectal cancer (CMS/HCC) (Primary Dx) Discharge Disposition: Home or Self Care 01/21/2025 Travel 01/14/2025 1:30 PM EDT - 01/14/2025 11:59 PM EDT Hospital Encounter [facility] [address] [place] [address] Rectal cancer (CMS/HCC) (Primary Dx) Discharge Disposition: Home or Self Care 01/14/2025 Travel from Last 3 Months Family History [...] any time in the past 12 m [facility], were you homeless or living in [...] Info) Description 04/22/2025 12:40 PM EDT Appointment [facility] [address] [place] [address] 04/22/2025 3:00 PM EDT Office Visit [facility] [address] [place] [address] Joi Stewart MD [address] [facility] [address] [place] [address] 07/30/2025 1:00 PM EDT Appointment [facility] [address] [place] [address] Manoj Fowler MD [address] [facility] [address] [place] [address] 08/14/2025 10:00 AM EST Appointment [facility] Lab [address] [facility] 5th Floor [address], [address] [place] [address] 08/14/2025 11:00 AM EST Office Visit [facility] [address], [address] [place] [address] Hilary Cordova MD [address] [facility] [address] [place] [address] Health Maintenance Due Date Last Done Comments [facility]-Bone Density Scan 1950 [facility]-Medicare Annual Wellness (AWV) 1950 [facility]-/Child/Adol SDOH Screenings 1949 [facility]-DTaP,Tdap,and Td Vaccine s (1 - Tdap) 1968 [facility]-Pneumococcal Vaccine: 50 + Years (1 of 2 - PCV) 1968 [facility]-Zoster Vaccines (1 of 2) 1968 CT Colonography 1994 FIT-DNA 1994 FIT 1994 FOBT 1994 Sigmoidoscopy 1994 [id number] Vaccine (2 - Ja nssen risk series) [...] Pretreatment Tumor staging: T3a N+ Prior treatment: SOFT WATER MECHANIC completed 01/29 TECHNIQUE: Multiplanar, multisequence MR imaging [...] Pretreatment Tumor staging: T3a N+ Prior treatment: SOFT WATER MECHANIC completed 01/29 TECHNIQUE: Multiplanar, multisequence MR imaging of the pelvis was performed on a 3Tmagnet both before and after administration of 6.5 mL of intravenousGadavist contrast. COMPARISON: 08/06/2024: MR pelvis with and without contrast FINDINGS: Treated primary tumor characteristics: Significantly decreased size of thepolypoid lesion in the upper rectum with minimal residual disease. New [id number] hypointense T2 scarring along the left/posterior rectum at thesite of primary tumor. Subtle residual nodular focus of hazy [id number] signal along the mucosal/submucosal margin of the left upperrectum at the site of primary tumor (series 7, images 29/30 and series 8,images 43/45), with peripheral T2 dark scarring along the serosal margin.This focus demonstrates hyperenhancement similar to prior as well asrestricted diffusion (series 13, image 28 and series 10/11, swyiez98/30). An area of T2 intermediate signal along [...] signing this report, I, the attending physician, attpeymanthat I have personally reviewed the images/data for [...] HEMATOLOGY METHOD 01/21/2025 2:[address] [facility] RBC Count 3.53(L) 3.90 - 5.20 10*6/uL LAB HEMATOLOGY METHOD 01/21/2025 2:[address] [facility] HGB 11.8 11.2 - 15.7 g/dL LAB HEMATOLOGY METHOD 01/21/2025 2:[address] [facility] HCT 34.1 34.0 - 45.0 % LAB HEMATOLOGY METHOD 01/21/2025 2:[address] [facility] Platelet Count 238 155 - 369 10*3/uL LAB HEMATOLOGY METHOD 01/21/2025 2:[address] [facility] MCV 97 79 - 98 fL LAB HEMATOLOGY METHOD 01/21/2025 2:[address] [facility] MCH 33.4(H) 26.0 - 32.0 pg LAB HEMATOLOGY METHOD 01/21/2025 2:[address] [facility] MCHC 34.6 30.7 - 35.5 g/dL LAB HEMATOLOGY METHOD 01/21/2025 2:[address] [facility] RDW 14.9(H) 11.5 - 14.5 % LAB HEMATOLOGY METHOD 01/21/2025 2:[address] [facility] MPV 9.1 8.8 - 12.5 fL LAB HEMATOLOGY METHOD 01/21/2025 2:[address] [facility] nRBC 0.0 <=0.0 per 100 WBCs LAB HEMATOLOGY METHOD 01/21/2025 2:[address] [facility] Differential Type Automated LAB HEMATOLOGY METHOD 01/21/2025 2:[address] [facility] Neutrophils % 75 % LAB HEMATOLOGY METHOD 01/21/2025 2:[address] [facility] Lymphocytes % 12 % LAB HEMATOLOGY METHOD 01/21/2025 2:[address] [facility] Monocytes % 9 % LAB HEMATOLOGY METHOD 01/21/2025 2:[address] [facility] Eosinophils % 3 % LAB HEMATOLOGY METHOD 01/21/2025 2:[address] [facility] Basophils % 0 % LAB HEMATOLOGY METHOD 01/21/2025 2:[address] [facility] Immature Granulocytes % 1 % LAB HEMATOLOGY METHOD 01/21/2025 2:[address] [facility] Neutrophils Absolute 5.26 1.60 - 6.10 10*3/uL LAB HEMATOLOGY METHOD 01/21/2025 2:[address] [facility] Lymphocytes Absolute 0.86(L) 1.20 - 3.90 10*3/uL LAB HEMATOLOGY METHOD 01/21/2025 2:[address] [facility] Monocytes Absolute 0.65 0.30 - 0.90 10*3/uL LAB HEMATOLOGY METHOD 01/21/2025 2:[address] [facility] Eosinophils Absolute 0.23 0.00 - 0.50 10*3/uL LAB HEMATOLOGY METHOD 01/21/2025 2:[address] [facility] Basophils Absolute 0.03 0.00 - 0.10 10*3/uL LAB HEMATOLOGY METHOD 01/21/2025 2:[address] [facility] Immature Granulocytes Absolute 0.08(H) 0.00 - 0.06 10*3/uL LAB HEMATOLOGY METHOD 01/21/2025 2:[address] [facility] Blood Blood sample taken from central line / Unknown (Port) Long-term Catheter / Unknown 01/21/2025 2:16 PM EDT 01/21/2025 2:[address] [facility] - 01/21/2025 2:47 PM EDT Therapeutic decision making should be based on absolute values, rather than percentages. us Joi Stewart MD LAB BLOOD ORDERABLES Final Res ult [facility] [address] [place] [address] * (ABNORMAL) Comprehensive metabolic panel (01/21/2025 2:16 PM EDT) Only the most recent of2 resultswithin the time period is included. Glucose, Plasma 120(H) 74 - 99 mg/dL 01/21/2025 3:[address] [facility] BUN, Plasma 23 8 - 23 mg/dL 01/21/2025 3:[address] [facility] Creatinine, Plasma 1.62(H) 0.60 - 1.10 mg/dL 01/21/2025 3:[address] [facility] BUN/Creatinine Ratio 14 01/21/2025 3:[address] [facility] Sodium, Plasma 136 136 - 145 mmol/L 01/21/2025 3:[address] [facility] Potassium, Plasma 3.6 3.6 - 4.9 mmol/L 01/21/2025 3:[address] [facility] Chloride, Plasma 103 97 - 107 mmol/L 01/21/2025 3:[address] [facility] CO2, Plasma 23 22 - 29 mmol/L 01/21/2025 3:[address] [facility] Anion Gap 10 6 - 16 mmol/L 01/21/2025 3:[address] [facility] Total Calcium, Plasma 9.2 8.9 - 10.2 mg/dL 01/21/2025 3:[address] [facility] Total Protein 5.9(L) 6.3 - 7.9 g/dL 01/21/2025 3:[address] [facility] Albumin, Plasma 3.7 3.5 - 5.2 g/dL 01/21/2025 3:[address] [facility] AST, Plasma 11 10 - 35 U/L 01/21/2025 3:[address] [facility] ALT, Plasma 10 10 - 35 U/L 01/21/2025 3:[address] [facility] Alkaline Phosphatase, Plasma 59 46 - 142 U/L 01/21/2025 3:[address] [facility] Total Bilirubin, Plasma 0.3 0.2 - 1.1 mg/dL 01/21/2025 3:[address] [facility] eGFRcr 33.0 mL/min/1.7 3m*2 01/21/2025 3:[address] [facility] Comment:Reported eGFRcr in m L/min/1.73m2 is based the CKD-EPI 2020 equation that does not use a race coefficient. Blood Venous blood specimen / Unknown (Port) Long-term Catheter / Unknown 01/21/2025 2:16 PM EDT 01/21/2025 2:45 PM EDT us Joi Stewart MD LAB BLOOD ORDERABLES Final Res ult [facility] [address] [place] [address] * Hepatitis C Antibody - ED (08/31/2024 5:22 PM EST) Hepatitis C Antibody Negative Negative 08/31/2024 6:[address] [facility] Blood Venous blood specimen / Unknown Venipuncture / Unknown 08/31/2024 5:22 PM EST 08/31/2024 5:40 PM EST us Meño Cano MD LAB BLOOD ORDERABLES Final Re sult [facility] [address] [place] [address] * CT Chest w IV Contrast (08/06/2024 [...] medications. Staff Staff Role Robert Bueno Endo [employer] Clerk Shruti Gutierrez, Carmine Torres CRNA Endo [employer] Clerk Richard Borja MD Proceduralist Marcelina Arana Endo [...] of bowel preparation was evaluated using the [place] Bowel Preparation Scale with scores of: right [...] SURGICAL PATHOLOGY EXAM Richard Borja MD 07/22/2024 09 Findings Ten or more adenomatous-appearing, multilobulated and [...] Diagnosed Date Autogenerated Problem 03/31/2025 Insurance [employer] [place] [id number] MEDICARE Advance Directives * Full Code (Latest Code Status on File) Date Activated Date Inactivated Comments 09/02/2024 9:48 PM 09/05/2024 12:25 PM Question Answer Comments Patient has decision-making capacity? Yes * Full Code Date Activated Date Inactivated Comments 08/31/2024 7:20 PM 09/02/2024 9:48 PM Question Answer Comments Patient has decision-making capacity? Yes Care Teams Medical Librarian Relationship Specialty Start Date End Date Natalia Wayne APRN [address] [place] [id number] PCP - General 12/10/24
--- OUTSIDE RECORDS SUMMARY | 2025-04-11 11:59 | XMS_ITS | Encounter Summary ---
Author Organization Healthcare Address [address] [place] [address] Care Team Providers Care Mailroom Courier Name Role Phone Natalia Wayne YVONNE Primary Care Provider Encounter Details Date Type Department Care Team (Late st Contact Info) Description 03/31/2025 Telephone [facility] [address] [place] [address] Manoj Fowler MD [address] [place] [address] Social History Tobacco Use Types [...] 04/22/2025 12:40 PM EDT Appointment [facility] [address] [place] [address] 04/22/2025 3:00 PM EDT Office Visit [facility] [address] [place] [address] Joi Stewart MD [address] [facility] [address] [place] [address] 07/30/2025 1:00 PM EDT Appointment [facility] [address] [place] [address] Manoj Fowler MD [address] [facility] [address] [place] [address] 08/14/2025 10:00 AM EST Appointment [facility] [address] [facility] 5th Floor [address] [place] [address] 08/14/2025 11:00 AM EST Office Visit [facility] [address] [place] [address] Hilary Cordova MD [address] [facility] [address] [place] [address] documented as of this encounter Goals Goal [...] documented as of this encounter Care Teams Mailroom Courier Relationship Specialty Start Date End Date Natalia Wayne, CAR WRECKER [address] [place] [address] PCP - General 12/10/24 documented as of this encounter
--- OUTSIDE RECORDS SUMMARY | 2025-04-11 11:59 | XMS_ITS | Encounter Summary ---
Author Organization Healthcare Address [address] [place] [address] Care Team Providers Care Cartoon Designer Name Role Phone Pcp, No Primary Care Provider Natalia Hector APRN Primary Care Provider [phone] Encounter Details Date Type Department Care Team (Late st Contact Info) Description 11/14/2024 Orders Only External Location [address] [place] [address] Provider, External Social History Tobacco Use Types [...] Info) Description 04/22/2025 12:40 PM EDT Appointment [facility] CT [address]nd [place] [address] 04/22/2025 3:00 PM EDT Office Visit [facility] [address] [place] [address] Joi Stewart MD 800 [facility] [address] [facility] [address] [place] [address] 07/30/2025 1:00 PM EDT Appointment [facility] [address] [place] [address] Manoj Fowler MD [address] [facility] [address] [place] [address] 08/14/2025 10:00 AM EST Appointment [facility] Lab [address] [facility] 5th Floor [address] [place] [address] 08/14/2025 11:00 AM EST Office Visit [facility] [address] [facility] 5th Floor [address] [place] [address] Hilary Cordova MD [address] [facility] [address] [place] [address] documented as of this encounter [...] documented as of this encounter Care Teams Cartoon Designer Relationship Specialty Start Date End Date Pcp, [place] [address] PCP - General Family Medicine 06/11/24 12/09/24 Natalia Wayne APRN [address] [place] [address] PCP - General 12/10/24 documented as of this encounter
[2025-04-11] MEDS: SODIUM CHLORIDE 0.9% 10ML FLUSH SYRINGE 10 ML IV (12:00)
== END 2025-04-11 12:10 | disposition home or self-care (01) ==
LOC: INF 11:57
PROVIDERS: PCP Nurse Practitioner Family; Visit Provider Internal Medicine Medical Oncology
DX: C20 Malignant neoplasm of rectum (principal)
CPT/HCPCS: 96523; J1642

== ENCOUNTER 2025-04-23 09:05 | Outpatient (CLI) | payer MEDICARE, SELFPAY ==
--- OUTSIDE RECORDS SUMMARY | 2025-04-22 11:26 | XMS_ITS | Encounter Summary ---
Author Organization [facility] Address [address] [place] [address] Care Team Providers Care Plywood And Veneer Repairer Name Role Phone Natalia Wayne YVONNE Primary Care Provider [phone] Reason for Referral * Imaging (Routine) - Closed Specialty Diagnoses / Procedures Referred By Lexii t Referred To Contact Radiology Diagnoses Rectal cancer (CMS/HCC) Procedures CT Chest w IV Contrast Joi [address] MD [address] [address] Phone: tel: fax: Referral ID Status Reason Start Date Expiration Date Visits Re quested Visits Authorized [id number] Closed 02/13/2025 08/15/2026 1 1 * Imaging (Routine) - Closed Specialty Diagnoses / Procedures Referred By Lexii moody Referred To Contact Radiology Diagnoses Rectal cancer (CMS/HCC) Procedures CT Abdomen Pelvis w IV Contrast Joi [address] MD [address] [address] Phone: tel: fax: Referral ID Status Reason Start Date Expiration Date Visits Re quested Visits Authorized [id number] Closed 02/13/2025 08/15/2026 1 1 Reason for Visit * Imaging (Routine) - Closed Specialty Diagnoses / Procedures Referred By Lexii moody Referred To Contact Radiology Diagnoses Rectal cancer (CMS/HCC) Procedures CT Chest w IV Contrast Joi Stewart MD 800 [facility] [address] [place] [address] Phone: tel: fax: Referral ID Status Reason Start Date Expiration Date Visits Re quested Visits Authorized [id number] Closed 02/13/2025 08/15/2026 1 1 Encounter Details Date Type Department Care Team (Latest Contact Info) Description 04/22/2025 11:26 AM EDT - 04/22/2025 11:59 PM EDT Hospital Encounter [facility] [address] [place] [address] Rectal cancer (CMS/HCC) Discharge Disposition: [...] any time in the past 12 m [facility], were you homeless or living in [...] Upcoming Encounters Date Type Department Care Team ([facility] st Contact Info) Description 07/30/2025 1:00 PM EDT Appointment [facility] [address] [place] [address] Manoj Fowler MD [address] [facility] [address] [place] [address] 08/12/2025 1:30 PM EST Clinical Support [facility] Multidisciplinary Oncology Clinic [address] [place] [address] 08/12/2025 1:40 PM EST Office Visit [facility] Multidisciplinary Oncology Clinic [address] [place] [address] Joi Stewart MD 800 [facility] Tete Baker [facility] [address] [place] [address] 08/14/2025 10:00 AM EST Appointment [facility] Vascular Lab [address] [facility] 5th Floor [address], [address] [place] [address] 08/14/2025 11:00 AM EST Office Visit [facility] Comprehensive Vascular Clinic [address] [facility] 5th Floor Wing [address], [address] [place] [address] Hilary Cordova MD [address] [facility] [address] [place] [address] documented as of this encounter Goals Goal [...] Total DLP (Dose-Length Product): 640.83 mGy.cm (accession [id number]), 640.83 mGy.cm (accession [id number]). Please note: The reported value represents the [...] Total DLP (Dose-Length Product): 640.83 mGy.cm (accession [id number]),640.83 mGy.cm (accession [id number]). Please note: The reported valuerepresents the total [...] Total DLP (Dose-Length Product): 640.83 mGy.cm (accession [id number]), 640.83 mGy.cm (accession [id number]). Please note: The reported value represents the [...] Total DLP (Dose-Length Product): 640.83 mGy.cm (accession [id number]),640.83 mGy.cm (accession [id number]). Please note: The reported valuerepresents the total [...] documented as of this encounter Care Teams Plywood And Veneer Repairer Relationship Specialty Start Date End Date Natalia Wayne, SALAD BAR CLERK [address] [place] [id number] PCP - General 12/10/24 documented as of this encounter
--- OUTSIDE RECORDS SUMMARY | 2025-04-22 14:50 | XMS_ITS | Encounter Summary ---
Author Organization Healthcare Address [address] [place] [address] Care Team Providers Care Boilermaker Mechanic Name Role Phone Natalia Wayne YVONNE Primary Care Provider [phone] Encounter Details Date Type Department Care Team (Latest Contact Info) Description 04/22/2025 2:50 PM EDT Clinical Support [facility] Multidisciplinary Oncology Clinic [address] [place] [address] Anika Joya, RN Rectal cancer (CMS/HCC) Social [...] PM EDT Appointment [facility] [address] [place] [address] Manoj Fowler MD [address] [facility] [address] [place] [address] 08/12/2025 1:30 PM EST Clinical Support [facility] Mult[facility] Oncology Clinic [address] [place] [address] 08/12/2025 1:40 PM EST Office Visit [facility] [address] [place] [address] Joi Stewart MD 800 [facility] [address] [place] [address] 08/14/2025 10:00 AM EST Appointment [facility] Vascular Lab [address] [place] [address] 08/14/2025 11:00 AM EST Office Visit [facility] Comprehensive Vascular Clinic [address] [place] [address] [address] [place] [address] Hilary Cordova MD [address] [facility] [address] [place] [address] documented as of this encounter Goals Goal [...] Panel, Plasma (04/22/2025 3:09 PM EDT) Pathologist [facility] Glucose, Plasma 120(H) 74 - 99 mg/dL [...] [facility] [address] [place] [address] * CEA, Serum (04/22/2025 3:09 PM EDT) CEA, Serum 1.9 <4.0 ng/mL 04/22/2025 5:10 PM EDT [facility] Blood Blood sample taken from central [...] [facility] [address] [place] [address] * (ABNORMAL) CBC and Differential (04/22/2025 3:09 [...] [facility] [address] [place] [address] documented in this encounter Visit Diagnoses Diagnosis [...] as of this encounter Care Teams Boilermaker Mechanic Relationship Specialty Start Date End Date Natalia Wayne APRN [address] [place] [address] PCP - General 12/10/24 documented as of this encounter
--- OUTSIDE RECORDS SUMMARY | 2025-04-22 15:00 | XMS_ITS | Encounter Summary ---
Author Organization Healthcare Address [address] [place] [address] Care Team Providers Care Brush Machine Setter Name Role Phone Natalia Wayne SHANK TAPER Primary Care Provider Reason for Visit * Reason Comments Follow-up Rectal cancer Encounter Details Date Type Department Care Team ([facility] st Contact Info) Description 04/22/2025 3:00 PM EDT Office Visit [facility] Multidisciplinary Oncology Clinic [address] [place] [address] Joi Stewart MD 800 [facility] [address] [place] [address] Rectal cancer (CMS/HCC) (Primary Dx) [...] any time in the past 12 m [facility], were you homeless or living in a [...] Alia Fong documented as of this encounter Plan of Treatment Upcoming Encounters Date Type Department Care Team (Late st Contact Info) Description 07/30/2025 1:00 PM EDT Appointment [facility] [address] [place] [address] Manoj Fowler MD [address] [facility] [address] [place] [address] 08/12/2025 1:30 PM EST Clinical Support [facility] Multidisciplinary Oncology Clinic [address] [place] [address] 08/12/2025 1:40 PM EST Office Visit [facility] Multidisciplinary Oncology Clinic [address] [place] [address] Joi Stewart MD 800 [facility] Tete Baker [facility] [address] [place] [address] 08/14/2025 10:00 AM EST Appointment [facility] Vascular Lab [address] [facility] 5th Floor [address] [place] [address] 08/14/2025 11:00 AM EST Office Visit [facility] Comprehensive Vascular Clinic [address] [facility] 5th Floor [address] [place] [address] Hilary Cordova MD [address] [facility] [address] [place] [address] Scheduled Orders Name Type Priority [...] documented as of this encounter Care Teams Brush Machine Setter Relationship Specialty Start Date End Date Natalia Wayne APRN [address] [place] [address] PCP - General 12/10/24 documented as of this encounter
[2025-04-23] VITALS (7 sets, daily range): BP systolic 138–167; BP diastolic 65–79; PULSE 62–69; RESP 18–20; TEMP 36.7; O2SAT 97–98
--- OUTSIDE RECORDS SUMMARY | 2025-04-23 09:11 | XMS_ITS | Encounter Summary ---
Author Organization [facility] Address [address] [place] [address] Care Team Providers Care Lace Machine Operator Name Role Phone Natalia Wayne YVONNE Primary Care Provider [phone] Encounter Details Date Type Department Care Team (Latest Contact Info) Description 04/22/2025 Travel Social History Tobacco Use Types Packs/Day [...] in the past 12 m [facility], were you homeless or living [...] PM EDT Appointment [facility] [address] [place] [address] Manoj Fowler MD [address] [facility] [address] [place] [address] 08/12/2025 1:30 PM EST Clinical Support [facility] Multidisciplinary Oncology Clinic [address] [place] [address] 08/12/2025 1:40 PM EST Office Visit [facility] Multidisciplinary Oncology Clinic [address] [place] [address] Joi Stewart MD 800 [facility] [address] [place] [address] 08/14/2025 10:00 AM EST Appointment [facility] Vascular Lab [address] [place] [address] 08/14/2025 11:00 AM EST Office Visit [facility] Comprehensive Vascular Clinic [address] [place] [address] [address] [place] [address] Hilary Cordova MD [address] [facility] [address] [place] [address] documented as of this encounter Goals Goal [...] documented as of this encounter Care Teams Lace Machine Operator Relationship Specialty Start Date End Date Natalia Wayne, YVONNE [address] [place] [address] PCP - General 12/10/24 documented as of this encounter
--- OUTSIDE RECORDS SUMMARY | 2025-04-23 09:11 | XMS_ITS | Data Portability ---
Author Organization [employer] [facility] Address [address] [place] [address] Assessment Encounter Date Assessment Date Assessment LastModified [...] Orders lisinopril 10 mg tablet 2024 025 [facility], [address] [place] [address], [address], 5 12:42:46 lisinopril 10 mg tablet 2023 024 [facility], [address] [place] [address], [address], 15:41:55 Patient TargetsNo targets recorded. Patient Instructions Encounter Date Encounter Id Patient Instructions Last Modified By Organization Details Last Modified Time 09/11/2024 [id number] high blood pressure: care instructions [facility] Not available 09/11/2024 15:20:14 learning about high blood pressure Not available 09/11/2024 15:20:14 high cholesterol : care instructions [facility] Not available 09/13/2024 16:54:02 Reason for Referral None Reported. Results Created Date Observation Date Name Description Value Unit Range Abnormal Flag Note LastModifiedBy Organization Detail LastModifiedTime 10/21/19 25 10/21/2024 HCV antib britney servando alfaro, reai ngful use set HCV Ab normal Not Available [facility] (Lab) [address] [place], [address], 10/21/2024 15:09:59 10/21/19 25 10/21/2024 CT, chest , w/o contr ast No observ ation record ed. [address] [facility] [place], [address], 10/21/2024 15:21:14 10/21/19 25 10/21/2024 CT, abdom en + pelvi s, w/o contr ast No observ ation record ed. [address] [facility] [place], [address], 10/21/2024 15:23:15 10/22/19 25 10/21/2024 elect dominic parrgr am, routi ne ECG, 12 leads min; inter preta tion and repor t (PROC ) No observ ation record ed. [address] [facility], [place], [address], 10/23/2024 10:18:59 11/14/19 25 11/14/2024 MR, angio gram, abdom en, w/wo contr ast No observ ation record ed. [address] [facility], [place], [address], 11/21/2024 10:32:46 Result Notes None recorded. Problems Name Problem SNOMED Code Status Onset Date Resolution Date Notes Provider Name and Address Organization Details Recorded Time Essential hypertension 98280399 Active 2023 Natalia Wayne, STACEY [address] [place], [address], [employer] 16:54:24 Carcinoma of colon, stage IV 618101009 Active 2023 Natalia Wayne NP [address] [place], [address], [employer] 16:54:23 Hyperlipidemia 26340173 Active 2023 Natalia Wayne NP [address] [place], [address], [employer] 16:54:26 Problem Notes None recorded. Medical [...] Updated DateTime 5 170.18 cm 24.5 kg/m2 00323.1 1 g 75 /min 97 % 97 % 144/86 mm[Hg] 163/76 mm[Hg] 139/84 mm[Hg] Oksana Reddy [employer] 5 10:44:34 Date Recorded Body height Body mass index (BMI) Body weight Heart rate Oxygen saturation Oxygen saturation in Arterial blood by Pulse oximetry Systolic And Diastolic Systolic And Diastolic Systolic And Diastolic Provider Name and Address Organization Details Last Updated DateTime 4 170.18 cm 24.3 kg/m2 05976.9 2 g 72 /min 97 % 97 % 177/84 mm[Hg] 182/82 mm[Hg] 174/86 mm[Hg] Oksana Reddy [employer] 4 14:56:23 Social History Question Answer Notes LastModified by Organizat ion Details LastModified Time Tobacco Smoking Status Current Every Day Smoker Oksana Reddy Lat49 09/11/2024 14:56:35 Do You Have An Advance Directive? No [email or web address] Information n ot available 09/11/2024 Is Your Home Air Conditioned? Yes [email or web address] Information not available 09/11/2024 Do You Wear A Helmet When Biking? No Information not available 09/11/2024 Are You Blind Or Do You Have Difficulty Seeing? No [email or web address] Information n ot available 09/11/2024 What Is Your Level Of Caffeine Consumption? Moderate [email or web address] Information not available 09/11/2024 What Type Of Technology Professional Do You Use? None [email or web address] Information not available 09/11/2024 In The 14 Days Before Symptom Onset, Have You Had Close Contact With A Laboratory-confirm ed COVID-19 While That Case Was Ill? No [email or web address] Information n ot available 09/11/2024 In The 14 Days Before Symptom Onset, Have You Had Close Contact With A Person Who Is Under Investigation For COVID-19 While That Person Was Ill? No [email or web address] Information not available 09/11/2024 Have You Been To An Area Known To Be High Risk For COVID-19? No Information not available 09/11/2024 Are You Deaf Or Do You Have Serious Difficulty Hearing? No [email or web address] Information not available 09/11/2024 What Type Of Diet Are You Following? REGULAR Information n ot available 09/11/2024 How Many Days Of Moderate To Strenuous Exercise, Like A Brisk Walk, Did You Do In The Last 7 Days? 3 [email or web address] Information not available 09/11/2024 Are There Any Guns Present In Your Home? Yes Information not available 09/11/2024 Which Of Your Hands Is Dominant? Right [email or web address] Information n ot available 09/11/2024 Do You Have A Medical Power Of Refuse Collector? No [email or web address] Information not available 09/11/2024 What Was The Date Of Your Most Recent Tobacco Screening? 10/03/2024 Information not available 10/03/2024 Do You Have Any Pets? Yes [email or web address] Information not available 09/11/2024 What Is Your Relationship Status? Information not available 09/11/2024 Have You Repeated Any Grades? No Information not available 09/11/2024 Do You Use Your Seat Belt Or Car Seat Routinely? Yes [email or web address] Information not available 09/11/2024 Are You Sexually Active? No [email or web address] Information not available 09/11/2024 Do You Have Any Siblings? Shae Mcfadden [email or web address] Information not available 09/11/2024 Do You Have Smoke And Carbon Monoxide Detectors In Your Home? No [email or web address] Information not available 09/11/2024 At What Age Did You Start Smoking Tobacco? 17 [email or web address] Information not available 09/11/2024 Are You Passively Exposed To Smoke? Yes [email or web address] Information no t available 09/11/2024 Are There Any Smokers In Your House? Yes Information not available 09/11/2024 How Much Tobacco Do You Smoke? 0.5 PPD [email or web address] Information not available 09/11/2024 Do You Participate In Social Media? Yes [email or web address] Information not available 09/11/2024 Do You Use Sunscreen Routinely? No [email or web address] Information not available 09/11/2024 Has Tobacco Cessation Counseling Been Provided? No [email or web address] Information not available 09/11/2024 How Many Years Have You Smoked Tobacco? 60 Information not available 09/11/2024 Have You Recently Traveled Abroad? No [email or web address] Information not available 09/11/2024 Do You Have Difficulty Walking Or Climbing Stairs? No Information not available 09/11/2024 Are You Currently In School? No Information not available 09/11/2024 Do You Have Any Dietary Restrictions? No Information not available 09/11/2024 Sex: Female Functional Status Question Answer Note LastModified by Organizat ion Details LastModified Time Do you use any illicit or recreational drugs? No [email or web address] Information not available 09/11/2024 Do you or have you ever used any other forms of tobacco or nicotine? No [email or web address] Information not available 09/11/2024 What is your level of alcohol consumption? None [email or web address] Information not available 09/11/2024 Are you currently employed? No [email or web address] Information not available 09/11/2024 Do you have transportation difficulties? No [email or web address] Information not available 09/11/2024 Are you able to walk? YESWOREST [email or web address] Information not available 09/11/2024 Do you have difficulty doing errands alone? No Information not available 09/11/2024 Are you able to care for yourself? Yes Information not available 09/11/2024 Do you have difficulty dressing or bathing? Yes [email or web address] Information not available 09/11/2024 What is your exercise level? Moderate [email or web address] Information not available 09/11/2024 Mental Status Question Answer Note LastModified by Organizat ion Details LastModified Time Do you feel stressed (tense, restless, nervous, or anxious, or unable to sleep at night)? [id number] [email or web address] Information not available 09/11/2024 Do you have difficulty concentrating, remembering or making decisions? No Information no t available 09/11/2024 Are you or have you been involved with bullying? No Information not available 09/11/2024 Family History Nothing [...] 0.5 mL 12/10/2020 completed Natalia Wayne NP [address] [place] [address], [address], [facility] [employer] 09/11/2024 15:10:35 Past Encounters Encounter ID Performer Location Encounter Start Date Encounter Closed Date Diagnosis/Indication Diagnosis SNOMED-CT Code Diagnosis ICD10 Code Diagnosis Note [id number] [place] [address] 09/11/2024 13:46:57 09/11/2024 16:07:37 Essential hypertension 19165658 I10 Carcinoma of colon, stage IV 967656671 C18.9 Hyperlipidemia 54794223 E78.5 Normal weight 08272198 Z 68.24 [id number] Natalia Wayne NP [address] [place] [phone] 10/03/2024 10:23:08 10/03/2024 11:18:09 Essential hypertension 27338105 I10 Carcinoma of colon, stage IV 674980363 C18.9 Health Concerns Section Related Observation LastModified by Organization Detai ls LastModified Time None Recorded Concern Status LastModified by Organization Details LastModified Time None Recorded Advance Directives Directive N: Payers Insurance Date Sequence Insurance Name Policy Number Policy Christian Covered Member ID Christian Member ID Guarantor Name 01/01/2025 MEDICARE A-[place]: [facility] Lashae Wyman [id number] Lashae Wyman 01/01/2025 1 [place] Lashae Wyman [id number] Lashae Wyman Notes Date Note Type Note Provider Name and Address Organization Details Recorded Time 09/11/2024 text/html Patient presents to establish care. Lives with her . 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 No real medical history until recently. Has not seen PCP in years. States that in June she had abdominal pain and vomiting and ultimately passed out and went to [facility]. They did a CT and found [...] She is going to start chemo in [place] next month. She is going to have radiation in [place] after the chemo. She does have a [...] x 1 month. Natalia Wayne NP [address] [place], [address], [employer] 09/13/2024 16:55:34 10/03/2024 text/html Patient presents for [...] pressure is normal. Natalia Wayne NP [address] [place], [address], [employer] 10/04/2024 17:47:56 OBGyn Episode No OBEpisode recorded.
--- OUTSIDE RECORDS SUMMARY | 2025-04-23 09:11 | XMS_ITS | Clinical Summary ---
[facility] Address [address] [place] [address] Care Team Providers Care Mechanical Engineering Director Name Role Phone Unavailable Primary Care Provider Unavailabl e Social History Tobacco Use Types Packs/Day Years Used Date Smoking Tobacco: Never Assessed Abuse Screen Answer Date Recorded Unsafe at Home or Work/School Not on file Feels Threatened by Someone? Not on file 06/2023 Does Anyone Keep You from Co ntacting Others or Doint Things Outside the Home? Not on file 07/10/2023 Physical Sign of Abuse Present Not on file 1 Housing Stability Answer Date Recorded Current Living Arrangements Not on file 06/2023 Potentially Unsafe Housing Conditions Not on fredrick e 07/10/2023 Family and Community Support Answer Derrick e Recorded Help with Day-to-Day Activities Not on file 07/10/2023 Lonely or Isolated Not on file 07/10/2023 Employment Answer Date Recorded Do you want help finding or keeping work or a lynda b? Not on file 07/10/2023 Disabilities Answer Date Recorded Concentrating, Remembering, or Making Decisions Difficulty Not on file 07/10/2023 Doing Errands Independently Difficulty Not on fi le 07/10/2023 Education Answer Date Recorded Help with school or training? Not on file Preferred Language Not on file 07/10/2023 Comments Unknown Sex and Gender Information Value Date Recorded Sex Assigned at Not on file Legal Sex Female 1:23 PM EDT Gender Identity Not on file Sexual Orientation Not on file Plan of Treatment Health Maintenance Due Date Last Done Comments ANNUAL PHYSICAL 1950 DXA SCAN 1949 HEPATITIS C SCREENING 1949 TDAP/TD VACCINES (1 - Tdap) 1968 COLOGUARD 1994 COLON CANCER SCREENING 5 YEAR SIGMOIDOSCOPY 1994 COLONOSCOPY 1994 [address] CANCER SCREENING 1994 CT COLONOGRAPHY 1994 FECAL OCCULT BLOOD TEST 1994 FIT Testing (1 year) 1994 Pneumococcal Vaccine 50+ (1 of 1 - PCV) 1999 ZOSTER VACCINE (1 of 2) 1999 COVID-19 Vaccine (1 - 2023- season) 2024 RSV Vaccine - Adults (1 - 1-dose 75+ series) INFLUENZA VACCINE 07/02/2025
--- OUTSIDE RECORDS SUMMARY | 2025-04-23 09:12 | XMS_ITS | Encounter Summary ---
Author Organization Healthcare Address [address] [place] [address] Care Team Providers Care Wire Mill Rover Name Role Phone Natalia Wayne YVONNE Primary Care Provider [phone] Reason for Visit * Reason Onset Date Comments Flexible Sigmoidoscopy 03/31/2025 Encounter Details Date Type Department Care Team (Latest Contact Info) Description 03/31/2025 Telephone [facility] [address] [place] [address] Manoj Fowler MD [address] [facility] [address] [place] [address] Flexible Sigmoidoscopy Social History Tobacco [...] time in the past 12 m [facility], were you homeless or living in a [...] Anticipates finishing chemo in approx 3-4 mo. Analog Device Designer Radha Gilbert notified for r/s flex sig tentatively for late Jul. Pt will call back to clinic if still completing chemo therapy at that time. Pt verbalized understanding. No further questions or concerns. * Telephone Encounter - Joyce Yoo RN - 03/31/2025 1:17 PM EDT Message received from nurse liaison Javad Olivo that Dr. Yip's office ([facility]) is requesting 04/16 flex sig be rescheduled for later. Notes that pt has only received second infusion and will not complete chemo when flex sig is done. LVM with pt requesting call back to clinic to discuss. documented in this encounter Plan of Treatment Upcoming Encounters Date Type Department Care Team ([facility] st Contact Info) Description 07/30/2025 1:00 PM EDT Appointment [facility] H Endoscopy [address] [place] [address] Manoj Fowler MD [address] [address] 08/12/2025 1:30 PM EST Clinical Support [facility] Multidisciplinary Oncology Clinic [address] [place] [address] 08/12/2025 1:40 PM EST Office Visit [facility] Multidisciplinary Oncology Clinic [address] [place] [address] Joi Stewart MD 800 [facility] [address] [place] [address] 08/14/2025 10:00 AM EST Appointment [facility] Vascular Lab [address] [place] [address] 08/14/2025 11:00 AM EST Office Visit [facility] Comprehensive Vascular Clinic [address] [place] [address] Hilary Cordova MD [address] [place] [address] documented as of this encounter Goals Goal Patient Goal Type Associated Problems Recent Progress Patient-Stated? Author Autogenerat ed Goal Care Plan Autogenerated Problem Mady Ofelia Geno Chaz documented as of this encounter [...] documented as of this encounter Care Teams Wire Mill Rover Relationship Specialty Start Date End Date Natalia Wayne, YVONNE [address] [place] [address] PCP - General 12/10/24 documented as of this encounter
--- OUTSIDE RECORDS SUMMARY | 2025-04-23 09:12 | XMS_ITS ---
Author Organization [facility] Address [address] [place] [address] Care Team Providers Care Registered Nurse Cardiovascular Icu Name Role Phone Natalia Wayne APRN Primary Care Provider [phone] Active Problems Problem Noted Date Diagnosed Date [...] 5-FU (Adrucil) infusion - for home use ([facility] supplied) CADD 100ML Therapy Complete Joi Stewart MD 1 of 1 cycle started MitoMYcin + Fluorouracil Every 28 Days x 2 + XRT 12/17/19 25 12/13/2024 5-FU CHEMO INFUSION ([facility] SUPPLIED) CADD ORDERABLEmitoMYcin (Mutamycin) Other (See Comments) Joi Stewart MD Treatment not started Resolved Problems Problem Noted Date Diagnosed Date Resolved Date Large bowel obstruction 08/31/2024 120 01/2024
--- OUTSIDE RECORDS SUMMARY | 2025-04-23 09:12 | XMS_ITS | Clinical Summary ---
Author Organization [facility] Address [address] [place] [address] Care Team Providers Care Cupola Tapper Helper Name Role Phone Natalia Wayne YVONNE Primary Care Provider [phone] Allergies No known active allergies Medications rosuvastatin (Crestor) 20 MG tablet Take 1 tablet (20 mg) by mouth every night. 30 tablet 5 08/08/20 24 Active Additional Information Patient not taking.Reported on 04/22/2025 acetaminophen (Tylenol) 500 MG tablet Take 1 tablet (500 mg) by mouth every 6 (six) hours. 100 tablet 09/05/20 24 Active ondansetron ODT (Zofran-ODT) 4 MG disintegrating tablet Take 1 tablet (4 mg) by mouth every 6 (six) hours if needed for nausea or vomiting. 20 tablet 09/05/20 24 Active rivaroxaban (Xarelto) 10 MG tablet Take 1 tablet (10 mg) by mouth 1 (one) time each day for 25 days. 25 tablet 09/05/20 24 Active Additional Information Patient not taking.Reported on 04/22/2025 aspirin 81 MG EC tablet Take 1 tablet (81 mg) by mouth daily. Active lisinopril 10 MG tablet Take 1 tablet (10 mg) by mouth Daily. 10/03/19 25 Active Calcium Polycarbophil (Fiber) 625 MG tablet Take 2 tablets by mouth in the morning and 2 tablets before bedtime. Active loperamide (Imodium A-D) 2 MG tablet Take 1 tablet by mouth 4 times a day as needed for diarrhea. Active prochlorperazine (Compazine) 10 MG tablet Take 1 tablet by mouth every 6 hours as needed for nausea or vomiting. 03/12/20 25 Active Active Problems Problem Noted Date Diagnosed [...] Date Large bowel obstruction 08/31/2024 120 01/2024 Encounters Date Type Department Care Team Description 04/22/2025 3:00 PM EDT Office Visit [facility] [address] [place] [address] Joi Stewart MD Rectal cancer (CMS/HCC) (Primary Dx) 04/22/2025 2:50 PM EDT Clinical Support [facility] Multidisciplinary Oncology Clinic [address] [place] [address] Anika Joya, RN Rectal cancer (CMS/HCC) 04/22/2025 11:26 AM EDT - 04/22/2025 11:59 PM EDT Hospital Encounter [facility] [address] [place] [address] Rectal cancer (CMS/HCC) Discharge Disposition: Home or Self Care 04/22/2025 Travel 03/31/2025 Telephone [facility] [address] [place] [address] Manoj Fowler MD 03/31/2025 Telephone [facility] [address] [place] [address] Manoj Fowler MD Flexible Sigmoidoscopy 02/13/2025 Orders Only [facility] [address] [place] [address] Cecilia Walters RN Rectal cancer (CMS/HCC) (Primary Dx) 02/04/2025 2:40 PM EDT Office Visit [facility] Multidisciplinary Oncology Clinic [address] [place] [address] Joi Stewart MD Rectal cancer (CMS/HCC) (Primary Dx) 02/04/2025 2:00 PM EDT Office Visit [facility] Multidisciplinary Oncology Clinic [address] [place] [address] Manoj Fowler MD Rectal cancer (CMS/HCC) (Primary Dx) 02/04/2025 9:12 AM EDT - 02/04/2025 11:59 PM EDT Hospital Encounter [facility] Radiology [address] [place] [address] Rectal cancer (CMS/HCC) Discharge Disposition: Home or Self Care 02/04/2025 Travel 01/28/2025 2:00 PM EDT - 01/28/2025 11:59 PM EDT Hospital Encounter [facility] Infusion Clinic [address] [place] [address] Rectal cancer (CMS/HCC) (Primary Dx) Discharge Disposition: Home or Self Care 01/28/2025 Travel from Last 3 Months Family History [...] in the past [address] [facility], were you homeless or [...] Mass Index 22.72 04/22/2025 2:41 PM EDT Plan of Treatment Upcoming Encounters Date Type Department Care Team (Late st Contact Info) Description 07/30/2025 1:00 PM EDT Appointment [facility] Endoscopy [address] [place] [address] Manoj Fowler MD [id number] [place] [address] 08/12/2025 1:30 PM EST Clinical Support [facility] [address] [place] [address] 08/12/2025 1:40 PM EST Office Visit [facility] Multidisciplinary Oncology Clinic [address] [place] [address] Joi Stewart MD 800 [facility] [address] [place] [address] 08/14/2025 10:00 AM EST Appointment [facility] Vascular Lab [address] [place] [address] 08/14/2025 11:00 AM EST Office Visit [facility] Comprehensive Vascular Clinic [address] [place] [address] [address] [place] [address] Hilary Cordova MD [address] [facility] [address] [place] [address] Health Maintenance Due Date Last Done Comments [facility]-Bone Density Scan 1950 [facility]-Medicare Annual Wellness (AWV) 1950 [facility]-/Child/Adol SDOH Screenings 1950 [facility]-DTaP,Tdap,and Td Vaccine s (1 - Tdap) 1968 [facility]-Pneumococcal Vaccine: 50 + Years (1 of 2 - PCV) 1968 [facility]-Zoster Vaccines (1 of 2) 1968 CT Colonography 1994 FIT-DNA 1994 FIT 1994 FOBT 1994 Sigmoidoscopy 1994 [id number] Vaccine (2 - Cady risk series) 01/07/2021 12/10/2020 [facility]-RSV Vaccine: 60+ Years o r (1 - 1-dose 75+ series) 2024 [facility]- SDOH Screenings 03/03/2025 [facility]-Adult SDOH Screenings 03/03/2025 09/02/2024 [facility]-Influenza Vaccine (#1) 2025 [facility]-Depression Screening 04/22/2026 04/22/2025 [facility]-Lung Cancer Screening 04/22/20262024, 08/06/2024 Colonoscopy 07/22/2034 07/22/2024 [facility]-Colorectal Cancer Screening 07/22/2034 [...] Procedure Name Priority Date/Time Associated Diagnosis Comments COMPREHENSIVE METABOLIC PANEL, PLASMA Routine 04/22/2025 3:09 PM EDT Rectal cancer (CMS/HCC) CEA, SERUM Routine 04/22/2025 3:09 PM EDT Rectal cancer (CMS/HCC) CBC WITH AUTO DIFFERENTIAL Routine 04/22/2025 3:09 PM EDT Rectal cancer (CMS/HCC) CT CHEST W IV CONTRAST Routine 12:20 PM EDT Rectal cancer (CMS/HCC) CT ABDOMEN PELVIS W IV CONTRAST Routine 04/22/2025 12:20 PM EDT Rectal cancer (CMS/HCC) MR PELVIS W AND WO IV CONTRAST Routine 02/04/2025 10:40 AM EDT Rectal cancer (CMS/HCC) HEPATITIS C ANTIBODY - ED W/REFLEX TO HCV QUANT PCR STAT 08/31/2024 5:22 PM EST COLONOSCOPY Routine 07/22/2024 9:29 AM EDT Colonic mass from Last 3 Months or Most Recently Relevant to Health Maintenance Results * (ABNORMAL) CBC and Differential (04/22/2025 3:09 PM EDT) WBC Count 6.48 3.70 - 10.30 10*3/uL LAB HEMATOLOGY METHOD 04/22/2025 4:01 PM EDT [facility] RBC Count 3.45(L) 3.90 - 5.20 10*6/uL LAB HEMATOLOGY METHOD 04/22/2025 4:01 PM EDT [facility] HGB 11.7 11.2 - 15.7 g/dL LAB HEMATOLOGY METHOD 04/22/2025 4:01 PM EDT [facility] HCT 34.1 34.0 - 45.0 % LAB HEMATOLOGY METHOD 04/22/2025 4:01 PM EDT [facility] Platelet Count 170 155 - 369 10*3/uL LAB HEMATOLOGY METHOD 04/22/2025 4:01 PM EDT [facility] MCV 99(H) 79 - 98 fL LAB HEMATOLOGY METHOD 04/22/2025 4:01 PM EDT [facility] MCH 33.9(H) 26.0 - 32.0 pg LAB HEMATOLOGY METHOD 04/22/2025 4:01 PM EDT [facility] MCHC 34.3 30.7 - 35.5 g/dL LAB HEMATOLOGY METHOD 04/22/2025 4:01 PM EDT [facility] RDW 15.7(H) 11.5 - 14.5 % LAB HEMATOLOGY METHOD 04/22/2025 4:01 PM EDT [facility] MPV 9.8 8.8 - 12.5 fL LAB HEMATOLOGY METHOD 04/22/2025 4:01 PM EDT [facility] nRBC 0.0 <=0.0 per 100 WBCs LAB HEMATOLOGY METHOD 04/22/2025 4:01 PM EDT [facility] Differential Type Automated LAB HEMATOLOGY METHOD 04/22/2025 4:01 PM EDT [facility] Neutrophils % 67 % LAB HEMATOLOGY METHOD 04/22/2025 4:01 PM EDT [facility] Lymphocytes % 18 % LAB HEMATOLOGY METHOD 04/22/2025 4:01 PM EDT [facility] Monocytes % 11 % LAB HEMATOLOGY METHOD 04/22/2025 4:01 PM EDT [facility] Eosinophils % 3 % LAB HEMATOLOGY METHOD 04/22/2025 4:01 PM EDT [facility] Basophils % 1 % LAB HEMATOLOGY METHOD 04/22/2025 4:01 PM EDT [facility] Immature Granulocytes % 0 % LAB HEMATOLOGY METHOD 04/22/2025 4:01 PM EDT [facility] Neutrophils Absolute 4.45 1.60 - 6.10 10*3/uL LAB HEMATOLOGY METHOD 04/22/2025 4:01 PM EDT [facility] Lymphocytes Absolute 1.14(L) 1.20 - 3.90 10*3/uL LAB HEMATOLOGY METHOD 04/22/2025 4:01 PM EDT [facility] Monocytes Absolute 0.68 0.30 - 0.90 10*3/uL LAB HEMATOLOGY METHOD 04/22/2025 4:01 PM EDT [facility] Eosinophils Absolute 0.16 0.00 - 0.50 10*3/uL LAB HEMATOLOGY METHOD 04/22/2025 4:01 PM EDT [facility] Basophils Absolute 0.03 0.00 - 0.10 10*3/uL LAB HEMATOLOGY METHOD 04/22/2025 4:01 PM EDT [facility] Immature Granulocytes Absolute 0.02 0.00 - 0.06 10*3/uL LAB HEMATOLOGY METHOD 04/22/2025 4:01 PM EDT [facility] Blood Blood sample taken from central line / Unknown (Port) Long-term Catheter / Unknown 04/22/2025 3:09 PM EDT 04/22/2025 3:47 PM EDT [facility] - 04/22/2025 4:01 PM EDT Therapeutic decision making should be based on absolute values, rather than percentages. Joi Stewart MD LAB BLOOD ORDERABLES Final Res ult Performing Organization Address [facility] de Phone Number [facility] [address] [place] [address] * CEA, Serum (04/22/2025 3:09 PM EDT) CEA, Serum 1.9 <4.0 ng/mL 04/22/2025 5:10 PM EDT [facility] Blood Blood sample taken from central line / Unknown (Port) Long-term Catheter / Unknown 04/22/2025 3:09 PM EDT 04/22/2025 3:38 PM EDT [facility] - 04/22/2025 5:10 PM EDT Normal range for smokers: < 5.5 ng/ml Normal range for non-smokers: <=4.0 ng/ml Performed by Karin electrochemiluminescent immunoassay. Results obtained with different test methods or kits cannot be used interchangeably. Joi Stewart MD LAB BLOOD ORDERABLES Final Res ult Performing Organization Address [facility] de Phone Number [facility] [address] [place] [address] * (ABNORMAL) Comprehensive Metabolic Panel, Plasma (04/22/2025 3:09 PM EDT) Glucose, Plasma 120(H) 74 - 99 mg/dL 04/22/2025 4:12 PM EDT [facility] BUN, Plasma 13 8 - 23 mg/dL 04/22/2025 4:12 PM EDT [facility] Creatinine, Plasma 1.33(H) 0.60 - 1.10 mg/dL 04/22/2025 4:12 PM EDT [facility] BUN/Creatinine Ratio 10 04/22/2025 4:12 PM EDT [facility] Sodium, Plasma 139 136 - 145 mmol/L 04/22/2025 4:12 PM EDT [facility] Potassium, Plasma 3.6 3.6 - 4.9 mmol/L 04/22/2025 4:12 PM EDT [facility] Chloride, Plasma 105 97 - 107 mmol/L 04/22/2025 4:12 PM EDT [facility] CO2, Plasma 23 22 - 29 mmol/L 04/22/2025 4:12 PM EDT [facility] Anion Gap 11 6 - 16 mmol/L 04/22/2025 4:12 PM EDT [facility] Total Calcium, Plasma 9.3 8.9 - 10.2 mg/dL 04/22/2025 4:12 PM EDT [facility] Total Protein 6.3 6.3 - 7.9 g/dL 04/22/2025 4:12 PM EDT [facility] Albumin, Plasma 3.6 3.5 - 5.2 g/dL 04/22/2025 4:12 PM EDT [facility] AST, Plasma 34 10 - 35 U/L 04/22/2025 4:12 PM EDT [facility] Comment:Hemolyzed, result ma y be falsely increased. ALT, Plasma 44(H) 10 - 35 U/L 04/22/2025 4:12 PM EDT [facility] Alkaline Phosphatase, Plasma 82 46 - 142 U/L 04/22/2025 4:12 PM EDT [facility] Total Bilirubin, Plasma 0.3 0.2 - 1.1 mg/dL 04/22/2025 4:12 PM EDT [facility] eGFRcr 41.8 mL/min/1.7 3m*2 04/22/2025 4:12 PM EDT [facility] Comment:Reported eGFRcr in m L/min/1.73m2 is based the CKD-EPI 2020 equation that does not use a race coefficient. Blood Blood sample taken from central line / Unknown (Port) Long-term Catheter / Unknown 04/22/2025 3:09 PM EDT 04/22/2025 3:39 PM EDT us Joi Stewart MD LAB BLOOD ORDERABLES Final Res ult [facility] [address] [place] [address] * CT Abdomen Pelvis w IV Contrast [...] Total DLP (Dose-Length Product): 640.83 mGy.cm (accession [id number]), 640.83 mGy.cm (accession [id number]). Please note: The reported value represents the [...] Total DLP (Dose-Length Product): 640.83 mGy.cm (accession [id number]),640.83 mGy.cm (accession [id number]). Please note: The reported valuerepresents the total [...] IMG CT PROCEDURES Final Result * CT Chest w IV Contrast (04/22/2025 [...] Total DLP (Dose-Length Product): 640.83 mGy.cm (accession [id number]), 640.83 mGy.cm (accession [id number]). Please note: The reported value represents the [...] Total DLP (Dose-Length Product): 640.83 mGy.cm (accession [id number]),640.83 mGy.cm (accession [id number]). Please note: The reported valuerepresents the total [...] MD IMG CT PROCEDURES Final Result * MR Pelvis w and wo IV [...] Pretreatment Tumor staging: T3a N+ Prior treatment: SOLICITING FREIGHT AGENT completed 01/29 TECHNIQUE: Multiplanar, multisequence MR imaging [...] Pretreatment Tumor staging: T3a N+ Prior treatment: SOLICITING FREIGHT AGENT completed 01/29 TECHNIQUE: Multiplanar, multisequence MR imaging of the pelvis was performed on a 3Tmagnet both before and after administration of 6.5 mL of intravenousGadavist contrast. COMPARISON: 08/06/2024: MR pelvis with and without contrast FINDINGS: Treated primary tumor characteristics: Significantly decreased size of thepolypoid lesion in the upper rectum with minimal residual disease. New [id number] hypointense T2 scarring along the left/posterior rectum at thesite of primary tumor. Subtle residual nodular focus of hazy R3jneanxaskome signal along the mucosal/submucosal margin of the [...] IMG MRI PROCEDURES Final Resul t * Hepatitis C Antibody - ED (08/31/2024 5:22 PM EST) Hepatitis C Antibody Negative Negative 08/31/2024 6:21 PM EST [facility] Blood Venous blood specimen / Unknown Venipuncture / Unknown 08/31/2024 5:22 PM EST 08/31/2024 5:40 PM EST Meño Cano MD LAB BLOOD ORDERABLES Final Re sult [facility] [address] [place] [address] * Colonoscopy (07/22/2024 9:29 AM EDT) Anatomical [...] medications. Staff Staff Role Robert Bueno Endo Stone Planer Shruti Gutierrez CRNA CRNA Gantt, Randolph Endo Stone Planer Richard Borja MD Proceduralist Marcelina Arana Endo [...] of bowel preparation was evaluated using the Bylas Bowel Preparation Scale with scores of: right [...] Date Diagnosed Date Autogenerated Problem 03/31/2025 Insurance [facility] [place] [id number] MEDICARE Advance Directives * Full Code (Latest Code Status on File) Date Activated Date Inactivated Comments 09/02/2024 9:48 PM 09/05/2024 12:25 PM Question Answer Comments Patient has decision-making capacity? Yes * Full Code Date Activated Date Inactivated Comments 08/31/2024 7:20 PM 09/02/2024 9:48 PM Question Answer Comments Patient has decision-making capacity? Yes Care Teams Cupola Tapper Helper Relationship Specialty Start Date End Date Natalia Wayne APRN [address] [place] [address] PCP - General 12/10/24
--- OUTSIDE RECORDS SUMMARY | 2025-04-23 09:12 | XMS_ITS | Encounter Summary ---
Author Organization Healthcare Address [address] [place] [address] Care Team Providers Care Supervisor Microfilm Duplicating Unit Name Role Phone Natalia Wayne YVONNE Primary Care Provider [phone] Encounter Details Date Type Department Care Team (Late st Contact Info) Description 03/31/2025 Telephone [facility] [address] [place] [address] Manoj Fowler MD [address] [place] [address] Social History Tobacco Use Types [...] any time in the past 12 m [facility], were you homeless or [...] PM EDT Appointment [facility] End[facility] [address] [place] [address] Manoj Fowler MD [facility] [id number] [place] [address] 08/12/2025 1:30 PM EST Clinical Support [facility] Multidisciplinary Oncology Clinic [address] [place] [address] 08/12/2025 1:40 PM EST Office Visit [facility] Multidisciplinary Oncology Clinic [address] [place] [address] Joi Stewart MD 800 [facility] [address] [place] [address] 08/14/2025 10:00 AM EST Appointment [facility] Vascular Lab [address] [place] [address] [address] [place] [address] 08/14/2025 11:00 AM EST Office Visit [facility] Comprehensive Vascular Clinic [address] [place] [address] [address] [place] [address] Hilary Cordova MD [address] [facility] [address] [place] [address] documented as of this encounter Goals Goal [...] as of this encounter Care Teams Supervisor Microfilm Duplicating Unit Relationship Specialty Start Date End Date Natalia Wayne, YVONNE [address] [place] [id number] PCP - General 12/10/24 documented as of this encounter
--- OUTSIDE RECORDS SUMMARY | 2025-04-23 09:12 | XMS_ITS | Encounter Summary ---
Author Organization Healthcare Address [address] [place] [address] Care Team Providers Care Research Chemist Name Role Phone Pcp, No Primary Care Provider Natalia Hector APRN Primary Care Provider [phone] Encounter Details Date Type Department Care Team (Late st Contact Info) Description 11/14/2024 Orders Only External Location [address] [place] [address] Provider, External Social History Tobacco Use Types Packs/Day Years Used Date Smoking Tobacco: Every Day Cigarettes 0.5 50.6 Started: 1975 Smokeless Tobacco: Never Alcohol Use [...] PM EDT Appointment [facility] [address] [place] [address] Manoj Fowler [facility] [address] [facility] [address] [place] [address] 08/12/2025 1:30 PM EST Clinical Support [facility] Multidisciplinary Oncology Clinic [address] [place] [address] 08/12/2025 1:40 PM EST Office Visit [facility] Multidisciplinary Oncology Clinic [address] [place] [address] Joi Stewart MD [address] [facility] Tete Baker [facility] [address] [place] [address] 08/14/2025 10:00 AM EST Appointment [facility] Vascular Lab [address] [facility] 5th Floor [address] [place] [address] 08/14/2025 11:00 AM EST Office Visit [facility] Comprehensive Vascular Clinic [address] [place] [address] Hilary Cordova MD [address] [place] [address] documented as of this encounter [...] as of this encounter Care Teams Research Chemist Relationship Specialty Start Date End Date Pcp, Mady [address] [place] [address] PCP - General Family Medicine 06/11/24 12/09/24 Natalia Wayne, YVONNE [address] [place] [address] PCP - General 12/10/24 documented as of this encounter
[2025-04-23 09:29] LABS: Hematocrit 34.1 % (37.0-47.0); Hemoglobin 11.7 g/dL (12.2-16.2); Immature Granulocytes % 0.4 %; Mean Corpuscular HGB Conc 34.3 g/dL (31.8-35.4); Mean Corpuscular Hemoglobin 34.0 pg (27.0-31.2); Mean Corpuscular Volume 99.1 fl (81-99); Nucleated Red Blood Cells % 0 %; Platelet Count 157 K/mm3 (142-424); Red Blood Count 3.44 M/mm3 (4.20-5.40); Red Cell Distribution Width-SD 55.2 fL; White Blood Count 5.4 K/mm3 (4.8-10.8)
[2025-04-23 09:45] LABS: Alanine Aminotransferase 48 U/L (12-78); Albumin Level 3.8 g/dl (3.5-5.0); Albumin/Globulin Ratio 1.4 (1.1-1.8); Alkaline Phosphatase 80 U/L (38-126); Anion Gap 8.9 mEq/L (5-15); Aspartate Amino Transferase 42 U/L (14-36); Bilirubin,Total 0.7 mg/dl (0.2-1.3); Blood Urea Nitrogen 14 mg/dl (7-17); Calcium 9.4 mg/dl (8.4-10.2); Carbon Dioxide 25 mmol/L (22.0-30.0); Chloride 109 mmol/L (98-107); Creatinine,Serum 1.50 mg/dl (0.52-1.04); Estimated Glomerular Filt Rate 34 ml/min (>60); GFR (African American) 41 ML/MIN (>60); Globulin 2.8 g/dL (1.3-3.2); Glucose 93 mg/dl (74-100); Potassium 3.9 mmoL/L (3.5-5.1); Sodium 139 mmol/L (136-145); Total Protein,Serum 6.6 g/dl (6.3-8.2)
[2025-04-23] MEDS: DEXTROSE 5 % IN WATER 100 ML 50 ML IV (10:04)
[2025-04-23] MEDS: POTASSIUM CHLORIDE 20MEQ TAB 40 MEQ PO (10:04)
[2025-04-23] MEDS: DEXAMETHASONE 4MG TABLET 12 MG (10:04)
[2025-04-23] MEDS: ONDANSETRON 4MG ODT 16 MG (10:04)
[2025-04-23] MEDS: SODIUM CHLORIDE 0.9% 10ML FLUSH SYRINGE 10 ML IV (10:13)
[2025-04-23] MEDS: OXALIPLATIN IV (10:43)
[2025-04-23] MEDS: WATER IV ×2 (10:43)
[2025-04-23] MEDS: DEXTROSE 5% IV ×2 (10:43)
[2025-04-23] MEDS: LEUCOVORIN CALCIUM IV (10:43)
[2025-04-23] MEDS: FLUOROURACIL 500MG/10ML VIAL 700 MG IV (12:56)
[2025-04-23] MEDS: SODIUM CHLORIDE IV (13:00)
[2025-04-23] MEDS: FLUOROURACIL IV (13:00)
== END 2025-04-23 13:00 | disposition home or self-care (01) ==
LOC: INF 09:08
PROVIDERS: PCP Nurse Practitioner Family; Visit Provider Internal Medicine Medical Oncology
DX: C20 Malignant neoplasm of rectum (principal); Z51.11 Encounter for antineoplastic chemotherapy
CPT/HCPCS: 80053; 85025; 96368; 96411; 96413; 96415; 96416; J0640; J7060; J8540; J9190; J9263; Q0162

== ENCOUNTER 2025-04-25 11:07 | Outpatient (CLI) | payer MEDICARE, SELFPAY ==
--- OUTSIDE RECORDS SUMMARY | 2025-04-22 11:26 | XMS_ITS | Encounter Summary ---
Author Organization [facility] Address [address] [place] [address] Care Team Providers Care Residential Interior Designer Name Role Phone Natalia Wayne YVONNE Primary Care Provider [phone] Reason for Referral * Imaging (Routine) - Closed Specialty Diagnoses / Procedures Referred By Lexii t Referred To Contact Radiology Diagnoses Rectal cancer (CMS/HCC) Procedures CT Chest w IV Contrast Joi Stewart MD [address] [address] Phone: tel: fax: Referral ID Status Reason Start Date Expiration Date Visits Re quested Visits Authorized [id number] Closed 02/13/2025 08/15/2026 1 1 * Imaging (Routine) - Closed Specialty Diagnoses / Procedures Referred By Lexii moody Referred To Contact Radiology Diagnoses Rectal cancer (CMS/HCC) Procedures CT Abdomen Pelvis w IV Contrast Joi Stewart MD [address] [address] Phone: tel: fax: Referral ID Status Reason Start Date Expiration Date Visits Re quested Visits Authorized [id number] Closed 02/13/2025 08/15/2026 1 1 Reason for Visit * Imaging (Routine) - Closed Specialty Diagnoses / Procedures Referred By Lexii moody Referred To Contact Radiology Diagnoses Rectal cancer (CMS/HCC) Procedures CT Chest w IV Contrast Joi Stewart MD 800 [facility] [address] [place] [address] Phone: tel: fax: Referral ID Status Reason Start Date Expiration Date Visits Re quested Visits Authorized [id number] Closed 02/13/2025 08/15/2026 1 1 Encounter Details Date Type Department Care Team (Latest Contact Info) Description 04/22/2025 11:26 AM EDT - 04/22/2025 11:59 PM EDT Hospital Encounter [facility] CT [address] [place] [address] Rectal cancer (CMS/HCC) Discharge Disposition: [...] any time in the past 12 m [facility], were you homeless or living in [...] Upcoming Encounters Date Type Department Care Team ([facility] st Contact Info) Description 07/30/2025 1:00 PM EDT Appointment [facility] [address] [place] [address] Manoj Fowler MD [address] [facility] [address] [place] [address] 08/12/2025 1:30 PM EST Clinical Support [facility] Multidisciplinary Oncology Clinic [address] [place] [address] 08/12/2025 1:40 PM EST Office Visit [facility] Multidisciplinary Oncology Clinic [address] [place] [address] Joi Stewart MD 800 [facility] Tete Baker [facility] [address] [place] [address] 08/14/2025 10:00 AM EST Appointment [facility] Vascular Lab [address] [facility] 5th Floor [address], [address] [place] [address] 08/14/2025 11:00 AM EST Office Visit [facility] Comprehensive Vascular Clinic [address] [facility] 5th Floor [address], [address] [place] [address] Hilary Cordova MD [address] [facility] [address] [place] [address] documented as of this encounter Goals Goal [...] Total DLP (Dose-Length Product): 640.83 mGy.cm (accession [id number]), 640.83 mGy.cm (accession [id number]). Please note: The reported value represents the [...] Total DLP (Dose-Length Product): 640.83 mGy.cm (accession [id number]),640.83 mGy.cm (accession [id number]). Please note: The reported valuerepresents the total [...] Total DLP (Dose-Length Product): 640.83 mGy.cm (accession [id number]), 640.83 mGy.cm (accession [id number]). Please note: The reported value represents the [...] Total DLP (Dose-Length Product): 640.83 mGy.cm (accession [id number]),640.83 mGy.cm (accession [id number]). Please note: The reported valuerepresents the total [...] documented as of this encounter Care Teams Residential Interior Designer Relationship Specialty Start Date End Date Natalia Wayne, TRIMMING CUTTER [address] [place] [phone] PCP - General 12/10/24 documented as of this encounter
--- OUTSIDE RECORDS SUMMARY | 2025-04-22 14:50 | XMS_ITS | Encounter Summary ---
Author Organization Healthcare Address [address] [place] [address] Care Team Providers Care Spiral Tube Winder Name Role Phone Naatlia Wayne YVONNE Primary Care Provider [phone] Encounter Details Date Type Department Care Team (Latest Contact Info) Description 04/22/2025 2:50 PM EDT Clinical Support [facility] Multidisciplinary Oncology Clinic [address] [place] [address] Anika Joya, RN Rectal cancer (CMS/HCC) Social [...] in the past 12 m [facility], were you homeless or living [...] PM EDT Appointment [facility] [address] [place] [address] Manoj Fowler MD [address] [facility] [address] [place] [address] 08/12/2025 1:30 PM EST Clinical Support [facility] Multidisciplinary Oncology Clinic [address] [place] [address] 08/12/2025 1:40 PM EST Office Visit [facility] Multidisciplinary Oncology Clinic [address] [place] [address] Joi Stewart MD 800 [facility] [address] [place] [address] 08/14/2025 10:00 AM EST Appointment [facility] [address] [place] [address] 08/14/2025 11:00 AM EST Office Visit [facility]ascular [facility] [address] [place] [address] [address] [place] [address] Hilary Cordova MD [address] [facility] [address] [place] [address] documented as of this encounter Goals Goal [...] - 99 mg/dL 04/22/2025 4:12 PM EDT [facility] BUN, Plasma 13 8 - 23 mg/dL 04/22/2025 4:12 PM EDT [facility] Creatinine, Plasma 1.33(H) 0.60 - 1.10 mg/dL 04/22/2025 4:12 PM EDT [facility] BUN/Creatinine Ratio 10 04/22/2025 4:12 PM EDT [facility] Sodium, Plasma 139 136 - 145 mmol/L 04/22/2025 4:12 PM EDT [facility] Potassium, Plasma 3.6 3.6 - 4.9 mmol/L 04/22/2025 4:12 PM EDT [facility] Chloride, Plasma 105 97 - 107 mmol/L 04/22/2025 4:12 PM EDT [facility] CO2, Plasma 23 22 - 29 mmol/L 04/22/2025 4:12 PM EDT [facility] Anion Gap 11 6 - 16 mmol/L 04/22/2025 4:12 PM EDT [facility] Total Calcium, Plasma 9.3 8.9 - 10.2 mg/dL 04/22/2025 4:12 PM EDT [facility] Total Protein 6.3 6.3 - 7.9 g/dL 04/22/2025 4:12 PM EDT [facility] Albumin, Plasma 3.6 3.5 - 5.2 g/dL 04/22/2025 4:12 PM EDT [facility] AST, Plasma 34 10 - 35 U/L 04/22/2025 4:12 PM EDT [facility] Comment:Hemolyzed, result ma y be falsely increased. ALT, Plasma 44(H) 10 - 35 U/L 04/22/2025 4:12 PM EDT [facility] Alkaline Phosphatase, Plasma 82 46 - 142 U/L 04/22/2025 4:12 PM EDT [facility] Total Bilirubin, Plasma 0.3 0.2 - 1.1 mg/dL 04/22/2025 4:12 PM EDT [facility] eGFRcr 41.8 mL/min/1.7 3m*2 04/22/2025 4:12 PM EDT [facility] Comment:Reported eGFRcr in m L/min/1.73m2 is based the CKD-EPI 2020 equation that does not use a race coefficient. Blood Blood sample taken from central line / Unknown (Port) Long-term Catheter / Unknown 04/22/2025 3:09 PM EDT 04/22/2025 3:39 PM EDT us Joi Stewart MD LAB BLOOD ORDERABLES Final Res ult [facility] [address] [place] [address] * CEA, Serum (04/22/2025 3:09 PM EDT) CEA, Serum 1.9 <4.0 ng/mL 04/22/2025 5:10 PM EDT [facility] Blood Blood sample taken from central line / Unknown (Port) Long-term Catheter / Unknown 04/22/2025 3:09 PM EDT 04/22/2025 3:38 PM EDT Narrative [facility] - 04/22/2025 5:10 PM EDT Normal range for smokers: < 5.5 ng/ml Normal range for non-smokers: <=4.0 ng/ml Performed by Kar[employer] electrochemiluminescent immunoassay. Results obtained with different test methods or kits cannot be used interchangeably. us Joi Stewart MD LAB BLOOD ORDERABLES Final Res ult [facility] [address] [place] [address] * (ABNORMAL) CBC and Differential (04/22/2025 3:09 PM EDT) WBC Count 6.48 3.70 - 10.30 10*3/uL LAB HEMATOLOGY METHOD 04/22/2025 4:01 PM EDT [facility] RBC Count 3.45(L) 3.90 - 5.20 10*6/uL LAB HEMATOLOGY METHOD 04/22/2025 4:01 PM EDT [facility] HGB 11.7 11.2 - 15.7 g/dL LAB HEMATOLOGY METHOD 04/22/2025 4:01 PM EDT [facility] HCT 34.1 34.0 - 45.0 % LAB HEMATOLOGY METHOD 04/22/2025 4:01 PM EDT [facility] Platelet Count 170 155 - 369 10*3/uL LAB HEMATOLOGY METHOD 04/22/2025 4:01 PM EDT [facility] MCV 99(H) 79 - 98 fL LAB HEMATOLOGY METHOD 04/22/2025 4:01 PM EDT [facility] MCH 33.9(H) 26.0 - 32.0 pg LAB HEMATOLOGY METHOD 04/22/2025 4:01 PM EDT [facility] MCHC 34.3 30.7 - 35.5 g/dL LAB HEMATOLOGY METHOD 04/22/2025 4:01 PM EDT [facility] RDW 15.7(H) 11.5 - 14.5 % LAB HEMATOLOGY METHOD 04/22/2025 4:01 PM EDT [facility] MPV 9.8 8.8 - 12.5 fL LAB HEMATOLOGY METHOD 04/22/2025 4:01 PM EDT [facility] nRBC 0.0 <=0.0 per 100 WBCs LAB HEMATOLOGY METHOD 04/22/2025 4:01 PM EDT [facility] Differential Type Automated LAB HEMATOLOGY METHOD 04/22/2025 4:01 PM EDT [facility] Neutrophils % 67 % LAB HEMATOLOGY METHOD 04/22/2025 4:01 PM EDT [facility] Lymphocytes % 18 % LAB HEMATOLOGY METHOD 04/22/2025 4:01 PM EDT [facility] Monocytes % 11 % LAB HEMATOLOGY METHOD 04/22/2025 4:01 PM EDT [facility] Eosinophils % 3 % LAB HEMATOLOGY METHOD 04/22/2025 4:01 PM EDT [facility] Basophils % 1 % LAB HEMATOLOGY METHOD 04/22/2025 4:01 PM EDT [facility] Immature Granulocytes % 0 % LAB HEMATOLOGY METHOD 04/22/2025 4:01 PM EDT [facility] Neutrophils Absolute 4.45 1.60 - 6.10 10*3/uL LAB HEMATOLOGY METHOD 04/22/2025 4:01 PM EDT [facility] Lymphocytes Absolute 1.14(L) 1.20 - 3.90 10*3/uL LAB HEMATOLOGY METHOD 04/22/2025 4:01 PM EDT [facility] Monocytes Absolute 0.68 0.30 - 0.90 10*3/uL LAB HEMATOLOGY METHOD 04/22/2025 4:01 PM EDT [facility] Eosinophils Absolute 0.16 0.00 - 0.50 10*3/uL LAB HEMATOLOGY METHOD 04/22/2025 4:01 PM EDT [facility] Basophils Absolute 0.03 0.00 - 0.10 10*3/uL LAB HEMATOLOGY METHOD 04/22/2025 4:01 PM EDT [facility] Immature Granulocytes Absolute 0.02 0.00 - 0.06 10*3/uL LAB HEMATOLOGY METHOD 04/22/2025 4:01 PM EDT [facility] Blood Blood sample taken from central line / Unknown (Port) Long-term Catheter / Unknown 04/22/2025 3:09 PM EDT 04/22/2025 3:47 PM EDT Narrative [facility] - 04/22/2025 4:01 PM EDT Therapeutic decision making should be based on absolute values, rather than percentages. us Joi Stewart MD LAB BLOOD ORDERABLES Final Res ult [facility] [address] [place] [address] documented in this encounter Visit Diagnoses Diagnosis [...] documented as of this encounter Care Teams Spiral Tube Winder Relationship Specialty Start Date End Date Natalia Wayne APRN [address] [place] [address] PCP - General 12/10/24 documented as of this encounter
--- OUTSIDE RECORDS SUMMARY | 2025-04-22 15:00 | XMS_ITS | Encounter Summary ---
Author Organization Healthcare Address [address] [place] [address] Care Team Providers Care Investments Manager Name Role Phone Natalia Wayne LIVERY CAR DRIVER Primary Care Provider [phone] Reason for Visit * Reason Comments Follow-up Rectal cancer Encounter Details Date Type Department Care Team ([facility] st Contact Info) Description 04/22/2025 3:00 PM EDT Office Visit [facility] Multidisciplinary Oncology Clinic [address] [place] [address] Joi Stewart MD 800 [facility] [address] [place] [address] Rectal cancer (CMS/HCC) (Primary Dx) [...] any time in the past 12 m [facility], were you homeless or living [...] PM EDT Appointment [facility] [address] [place] [address] Manoj Fowler MD [address] [facility] [address] [place] [address] 08/12/2025 1:30 PM EST Clinical Support [facility] Multidisciplinary Oncology Clinic [address] [place] [address] 08/12/2025 1:40 PM EST Office Visit [facility] Multidisciplinary Oncology Clinic [address] [place] [address] Joi Stewart MD 800 [facility] Tete Baker [facility] [address] [place] [address] 08/14/2025 10:00 AM EST Appointment [facility] Vascular Lab [address] [facility] 5th Floor [address] [place] [address] 08/14/2025 11:00 AM EST Office Visit [facility] Comprehensive Vascular Clinic [address] [facility] 5th Floor [address] [place] [address] Hilary Cordova MD [address] [facility] [address] [place] [address] Scheduled Orders Name Type Priority [...] documented as of this encounter Care Teams Investments Manager Relationship Specialty Start Date End Date Natalia Wayne APRN [address] [place] [address] PCP - General 12/10/24 documented as of this encounter
--- OUTSIDE RECORDS SUMMARY | 2025-04-25 11:09 | XMS_ITS ---
Author Organization [facility] Address [address] [place] [address] Care Team Providers Care Tumbling Barrel Painter Name Role Phone Natalia Wayne APRN Primary Care Provider [phone] Active Problems Problem Noted Date Diagnosed Date [...] 5-FU (Adrucil) infusion - for home use ([facility] supplied) CADD 100ML Therapy Complete Joi Stewart MD 1 of 1 cycle started MitoMYcin + Fluorouracil Every 28 Days x 2 + XRT 12/17/19 25 12/13/2024 5-FU CHEMO INFUSION ([facility] SUPPLIED) CADD ORDERABLEmitoMYcin (Mutamycin) Other (See Comments) Joi Stewart MD Treatment not started Resolved Problems Problem Noted Date Diagnosed Date Resolved Date Large bowel obstruction 08/31/2024 120 01/2024
--- OUTSIDE RECORDS SUMMARY | 2025-04-25 11:09 | XMS_ITS | Encounter Summary ---
Author Organization [facility] Address [address] [place] [address] Care Team Providers Care Airplane Fueler Name Role Phone Natalia Wayne YVONNE Primary Care Provider [phone] Encounter Details Date Type Department Care Team [...] any time in the past 12 m [facility], were you homeless or living in a assisted (including now)? No 09/02/2024 Utilities Answer Date [...] PM EDT Appointment [facility] [address] [place] [address] Manoj Fowler MD [address] [facility] [address] [place] [address] 08/12/2025 1:30 PM EST Clinical Support [facility] Multidisciplinary Oncology Clinic [address] [place] [address] 08/12/2025 1:40 PM EST Office Visit [facility] Multidisciplinary Oncology Clinic [address] [place] [address] Joi Stewart MD [address] [facility] Tete Baker [facility] [address] [place] [address] 08/14/2025 10:00 AM EST Appointment [facility] [address] [place] [address] 08/14/2025 11:00 AM EST Office Visit [facility] [address] [place] [address] [address], [address] [place] [address] Hilary Cordova MD [address] [facility] [address] [place] [address] documented as of this encounter [...] documented as of this encounter Care Teams Airplane Fueler Relationship Specialty Start Date End Date Natalia Wayne, YVONNE [address] [place] [address] PCP - General 12/10/24 documented as of this encounter
--- OUTSIDE RECORDS SUMMARY | 2025-04-25 11:09 | XMS_ITS | Clinical Summary ---
Author Organization [facility] Address [address] [place] [address] Care Team Providers Care Clamp Remover Name Role Phone Unavailable Primary Care Provider [...]
--- OUTSIDE RECORDS SUMMARY | 2025-04-25 11:09 | XMS_ITS | Clinical Summary ---
Author Organization [facility] Address [address] [place] [address] Care Team Providers Care Animal Assisted Therapist Name Role Phone Natalia Wayne YVONNE Primary Care Provider [phone] Allergies No known active allergies Medications rosuvastatin [...] EDT Office Visit [facility] [address] [place] [address] Joi Stewart MD Rectal cancer (CMS/HCC) (Primary Dx) 04/22/2025 2:50 PM EDT Clinical Support [facility] Multidisciplinary Oncology Clinic [address] [place] [address] Anika Joya, RN Rectal cancer (CMS/HCC) 04/22/2025 11:26 AM EDT - 04/22/2025 11:59 PM EDT Hospital Encounter [facility] [address] [place] [address] Rectal cancer (CMS/HCC) Discharge Disposition: Home or Self Care 04/22/2025 Travel 03/31/2025 Telephone [facility] [address] [place] [address] Manoj Fowler MD 03/31/2025 Telephone [facility] [address] [place] [address] Manoj Fowler MD Flexible Sigmoidoscopy 02/13/2025 Orders Only [facility] [address] [place] [phone] Cecilia Walters RN Rectal cancer (CMS/HCC) (Primary Dx) 02/04/2025 2:40 PM EDT Office Visit [facility] Multidisciplinary Oncology Clinic [address] [place] [address] Joi Stewart MD Rectal cancer (CMS/HCC) (Primary Dx) 02/04/2025 2:00 PM EDT Office Visit [facility] Multidisciplinary Oncology Clinic [address] [place] [address] Manoj Fowler MD Rectal cancer (CMS/HCC) (Primary Dx) 02/04/2025 9:12 AM EDT - 02/04/2025 11:59 PM EDT Hospital Encounter [facility] Radiology [address] [place] [address] Rectal cancer (CMS/HCC) Discharge Disposition: Home or Self Care 02/04/2025 Travel 01/28/2025 2:00 PM EDT - 01/28/2025 11:59 PM EDT Hospital Encounter [facility] Infusion Clinic [address] [place] [address] Rectal cancer (CMS/HCC) (Primary Dx) Discharge Disposition: [...] any time in the past 12 m [facility], were you homeless or living in a fdc (including now)? No 09/02/2024 Utilities Answer Date [...] PM EDT Appointment [facility] [address] [place] [address] Manoj Fowler MD [id number] [place] [address] 08/12/2025 1:30 PM EST Clinical Support [facility] [address] [place] [address] 08/12/2025 1:40 PM EST Office Visit [facility] Multidisciplinary Oncology Clinic [address] [place] [address] Joi Stewart MD [address] [facility] [address] [place] [address] 08/14/2025 10:00 AM EST Appointment [facility] [address] [place] [address] 08/14/2025 11:00 AM EST Office Visit [facility] [address] [place] [address] [address], [address] [place] [address] Hilary Cordova MD [address] [facility] [address] [place] [address] Health Maintenance Due Date Last Done Comments [facility]-Bone Density Scan 1950 [facility]-Medicare Annual Wellness (AWV) 1949 [facility]-/Child/Adol SDOH Screenings 1950 [facility]-DTaP,Tdap,and Td Vaccine s (1 - Tdap) 1968 [facility]-Pneumococcal Vaccine: 50 + Years (1 of 2 - PCV) 1968 [facility]-Zoster Vaccines (1 of 2) 1968 CT Colonography 1994 FIT-DNA 1994 FIT 1994 FOBT 1994 Sigmoidoscopy 1994 XGH-ICYER-64 Vaccine (2 - Cady risk series) 01/07/2021 [...] 3:09 PM EDT 04/22/2025 3:47 PM EDT [facility] - 04/22/2025 4:01 PM EDT Therapeutic decision making should be based on absolute values, rather than percentages. Joi Setwart MD LAB BLOOD ORDERABLES Final Res ult Performing Organization Address [facility] de Phone Number [facility] [address] [place] [address] * CEA, Serum (04/22/2025 3:09 PM EDT) CEA, Serum 1.9 <4.0 ng/mL 04/22/2025 5:10 PM EDT [facility] Blood Blood sample taken from central line / Unknown (Port) Long-term Catheter / Unknown 04/22/2025 3:09 PM EDT 04/22/2025 3:38 PM EDT [facility] - 04/22/2025 5:10 PM EDT Normal range for smokers: < 5.5 ng/ml Normal range for non-smokers: <=4.0 ng/ml Performed by Karin electrochemiluminescent immunoassay. Results obtained with different test methods or kits cannot be used interchangeably. Joi Stewart MD LAB BLOOD ORDERABLES Final Res ult Performing Organization Address [facility] de Phone Number [facility] [address] [place] [address] * (ABNORMAL) Comprehensive Metabolic Panel, Plasma (04/22/2025 [...] ult [facility] [address] [place] [address] * CT Abdomen Pelvis w IV Contrast [...] Total DLP (Dose-Length Product): 640.83 mGy.cm (accession [id number]), 640.83 mGy.cm (accession [id number]). Please note: The reported value represents the [...] Total DLP (Dose-Length Product): 640.83 mGy.cm (accession [id number]),640.83 mGy.cm (accession [id number]). Please note: The reported valuerepresents the total [...] Total DLP (Dose-Length Product): 640.83 mGy.cm (accession [id number]), 640.83 mGy.cm (accession [id number]). Please note: The reported value represents the [...] Total DLP (Dose-Length Product): 640.83 mGy.cm (accession [id number]),640.83 mGy.cm (accession [id number]). Please note: The reported valuerepresents the total [...] Pretreatment Tumor staging: T3a N+ Prior treatment: SURFACE TO AIR WEAPONS OFFICER completed 01/29 TECHNIQUE: Multiplanar, multisequence MR [...] Pretreatment Tumor staging: T3a N+ Prior treatment: SURFACE TO AIR WEAPONS OFFICER completed 01/29 TECHNIQUE: Multiplanar, multisequence MR imaging of the pelvis was performed on a 3Tmagnet both before and after administration of 6.5 mL of intravenousGadavist contrast. COMPARISON: 08/06/2024: MR pelvis with and without contrast FINDINGS: Treated primary tumor characteristics: Significantly decreased size of thepolypoid lesion in the upper rectum with minimal residual disease. New Y4zheeaqjz hypointense T2 scarring along the left/posterior rectum at thesite of primary tumor. Subtle residual nodular focus of hazy O3oqpfpyxmxgsi signal along the mucosal/submucosal margin of the left upperrectum at the site of primary tumor (series 7, images 29/30 and series 8,images 43/45), with peripheral T2 dark scarring along the serosal margin.This focus demonstrates hyperenhancement similar to prior as well asrestricted diffusion (series 13, image 28 and series 10/11, uvqskd04/30). An area of T2 intermediate signal along [...] Antibody Negative Negative 08/31/2024 6:21 PM EST [facility] Blood Venous blood specimen / Unknown Venipuncture / Unknown 08/31/2024 5:22 PM EST 08/31/2024 5:40 PM EST Meño Cano MD LAB BLOOD ORDERABLES Final Re sult [facility] [address] [place] [address] * Colonoscopy (07/22/2024 9:29 AM EDT) Anatomical [...] medications. Staff Staff Role Robert Bueno Endo Director Of Guidance Shruti Gutierrez CRNA CRNA Gantt, Randolph Endo Director Of Guidance Richard Borja MD Proceduralist Marcelina Arana Endo [...] of bowel preparation was evaluated using the [place] Bowel Preparation Scale with scores of: right [...] Date Diagnosed Date Autogenerated Problem 03/31/2025 [facility] [place] [id number] MEDICARE Advance Directives * Full Code (Latest Code Status on File) Date Activated Date Inactivated Comments 09/02/2024 9:48 PM 09/05/2024 12:25 PM Question Answer Comments Patient has decision-making capacity? Yes * Full Code Date Activated Date Inactivated Comments 08/31/2024 7:20 PM 09/02/2024 9:48 PM Question Answer Comments Patient has decision-making capacity? Yes Care Teams Animal Assisted Therapist Relationship Specialty Start Date End Date Natalia Wayne APRN [address] [place] [address] PCP - General 12/10/24
--- OUTSIDE RECORDS SUMMARY | 2025-04-25 11:09 | XMS_ITS | Data Portability ---
Author Organization [employer] [facility] Address [address] [place] [address] Assessment Encounter Date Assessment Date Assessment LastModified [...] lisinopril 10 mg tablet 2024 025 [facility], [address] [place] [address], [address], 5 12:42:46 lisinopril 10 mg tablet 2023 024 [facility], [address] [place] [address], [address], 15:41:55 Patient TargetsNo targets recorded. Patient Instructions Encounter Date Encounter Id Patient Instructions Last Modified By Organization Details Last Modified Time 09/11/2024 [id number] [facility] blood [facility]: [facility] Not available 09/11/2024 15:20:14 learning about high blood pressure Not available 09/11/2024 15:20:14 high cholesterol : [facility] Not available 09/13/2024 16:54:02 Reason for Referral None Reported. Results Created Date Observation Date Name Description Value Unit Range Abnormal Flag Note LastModifiedBy Organization Detail LastModifiedTime 10/21/19 25 10/21/2024 HCV antib britney servando alfaro, reai ngful use set HCV Ab normal Not Available [facility] (Lab) [address] [place], [address], 10/21/2024 15:09:59 10/21/19 25 10/21/2024 CT, chest , w/o contr ast No observ ation record ed. [address] [facility] [address] [place], [address], 10/21/2024 15:21:14 10/21/19 25 10/21/2024 CT, abdom en + pelvi s, w/o contr ast No observ ation record ed. [address] [facility] [address] [place], [address], 10/21/2024 15:23:15 10/22/19 25 10/21/2024 elect dominic parrgr am, routi ne ECG, 12 leads min; inter preta tion and repor t (PROC ) No observ ation record ed. [address] [facility] [address] [place], [address], 10/23/2024 10:18:59 11/14/19 25 11/14/2024 MR, angio gram, abdom en, w/wo contr ast No observ ation record ed. [address] [facility] [address] [place], [address], 11/21/2024 10:32:46 Result Notes None recorded. Problems Name Problem SNOMED Code Status Onset Date Resolution Date Notes Provider Name and Address Organization Details Recorded Time Essential hypertension 26774427 Active 2023 Natalia Wayne, STACEY [address] [place], [address], [employer] 16:54:24 Carcinoma of colon, stage IV 744018744 Active 2023 Natalia Wayne NP [address] [place], [address], [employer] 16:54:23 Hyperlipidemia 49775644 Active 2023 Natalia Wayne NP [address] [place], [address], [employer] 16:54:26 Problem Notes None recorded. Medical [...] Updated DateTime 5 170.18 cm 24.5 kg/m2 39117.1 1 g 75 /min 97 % 97 % 144/86 mm[Hg] 163/76 mm[Hg] 139/84 mm[Hg] Oksana Reddy [employer] 5 10:44:34 Date Recorded Body height Body mass index (BMI) Body weight Heart rate Oxygen saturation Oxygen saturation in Arterial blood by Pulse oximetry Systolic And Diastolic Systolic And Diastolic Systolic And Diastolic Provider Name and Address Organization Details Last Updated DateTime 4 170.18 cm 24.3 kg/m2 18733.9 2 g 72 /min 97 % 97 % 177/84 mm[Hg] 182/82 mm[Hg] 174/86 mm[Hg] Oksana Reddy [employer] 4 14:56:23 Social History Question Answer Notes LastModified by Organizat ion Details LastModified Time Tobacco Smoking Status Current Every Day Smoker Oksana Reddy [employer] 09/11/2024 14:56:35 Do You Have An Advance Directive? No [email or web address] Information n ot available 09/11/2024 Is Your Home Air Conditioned? Yes [email or web address] Information not available 09/11/2024 Do You Wear A Helmet When Biking? No [email or web address] Information not available 09/11/2024 Are You Blind Or Do You Have Difficulty Seeing? No [email or web address] Information n ot available 09/11/2024 What Is Your Level Of Caffeine Consumption? Moderate [email or web address] Information not available 09/11/2024 What Type Of Certified Meeting Professional Do You Use? None Information not available 09/11/2024 In The 14 Days Before Symptom Onset, Have You Had Close Contact With A Laboratory-confirm ed COVID-19 While That Case Was Ill? No [email or web address] Information n ot available 09/11/2024 In The 14 Days Before Symptom Onset, Have You Had Close Contact With A Person Who Is Under Investigation For COVID-19 While That Person Was Ill? No [email or web address] Information not available 09/11/2024 Have You Been To An Area Known To Be High Risk For COVID-19? No [email or web address] Information not available 09/11/2024 Are You Deaf Or Do You Have Serious Difficulty Hearing? No [email or web address] Information not available 09/11/2024 What Type Of Diet Are You Following? REGULAR [email or web address] Information n ot available 09/11/2024 How Many Days Of Moderate To Strenuous Exercise, Like A Brisk Walk, Did You Do In The Last 7 Days? 3 Information not available 09/11/2024 Are There Any Guns Present In Your Home? Yes [email or web address] Information not available 09/11/2024 Which Of Your Hands Is Dominant? Right [email or web address] Information n ot available 09/11/2024 Do You Have A Medical Power Of Blasting Coal Miner? No [email or web address] Information not available 09/11/2024 What Was The Date Of Your Most Recent Tobacco Screening? 10/03/2024 [email or web address] Information not available 10/03/2024 Do You Have Any Pets? Yes [email or web address] Information not available 09/11/2024 What Is Your Relationship Status? [email or web address] Information not available 09/11/2024 Have You Repeated Any Grades? No [email or web address] Information not available 09/11/2024 Do You Use Your Seat Belt Or Car Seat Routinely? Yes [email or web address] Information not available 09/11/2024 Are You Sexually Active? No Information not available 09/11/2024 Do You Have Any Siblings? Shae Mcfadden [email or web address] Information not available 09/11/2024 Do You Have Smoke And Carbon Monoxide Detectors In Your Home? No [email or web address] Information not available 09/11/2024 At What Age Did You Start Smoking Tobacco? 17 Information not available 09/11/2024 Are You Passively Exposed To Smoke? Yes [email or web address] Information no t available 09/11/2024 Are There Any Smokers In Your House? Yes [email or web address] Information not available 09/11/2024 How Much Tobacco Do You Smoke? 0.5 PPD Information not available 09/11/2024 Do You Participate In Social Media? Yes [email or web address] Information not available 09/11/2024 Do You Use Sunscreen Routinely? No [email or web address] Information not available 09/11/2024 Has Tobacco Cessation Counseling Been Provided? No [email or web address] Information not available 09/11/2024 How Many Years Have You Smoked Tobacco? 60 [email or web address] Information not available 09/11/2024 Have You Recently Traveled Abroad? No [email or web address] Information not available 09/11/2024 Do You Have Difficulty Walking Or Climbing Stairs? No [email or web address] Information not available 09/11/2024 Are You Currently In School? No Information not available 09/11/2024 Do You Have Any Dietary Restrictions? No [email or web address] Information not available 09/11/2024 Sex: Female Functional Status Question Answer Note LastModified by [employer] ion Details LastModified Time Do you use any illicit or recreational drugs? No [email or web address] Information not available 09/11/2024 Do you or have you ever used any other forms of tobacco or nicotine? No [email or web address] Information not available 09/11/2024 What is your level of alcohol consumption? None [email or web address] Information not available 09/11/2024 Are you currently employed? No [email or web address] Information not available 09/11/2024 Do you have transportation difficulties? No [email or web address] Information not available 09/11/2024 Are you able to walk? YESWOREST Information not available 09/11/2024 Do you have difficulty doing errands alone? No Information not available 09/11/2024 Are you able to care for yourself independently? Yes [email or web address] Information not available 09/11/2024 Do you have difficulty dressing, bathing, grooming, or toileting? Yes [email or web address] Information not available 09/11/2024 What is your exercise level? Moderate [email or web address] Information not available 09/11/2024 Mental Status Question Answer Note LastModified by Organizat ion Details LastModified Time Do you feel stressed (tense, restless, nervous, or anxious, or unable to sleep at night)? [id number] [email or web address] Information not available 09/11/2024 Do you have difficulty concentrating, remembering or making decisions? No Information no t available 09/11/2024 Are you or have you been involved with bullying? No [email or web address] Information not available 09/11/2024 Family History Nothing [...] 0.5 mL 12/10/2020 completed Natalia Wayne NP [address] [place] [address], [address], [facility] [employer] 09/11/2024 15:10:35 Past Encounters Encounter ID Performer Location Encounter Start Date Encounter Closed Date Diagnosis/Indication Diagnosis SNOMED-CT Code Diagnosis ICD10 Code Diagnosis Note [id number] Natalia Wayne NP [place] [phone] 09/11/2024 13:46:57 09/11/2024 16:07:37 Essential hypertension 62867338 I10 Carcinoma of colon, stage IV 829980186 C18.9 Hyperlipidemia 98798942 E78.5 Normal weight 89076808 Z 68.24 [id number] Natalia Wayne NP [facility] [address] [place] [phone] 10/03/2024 10:23:08 10/03/2024 11:18:09 Essential hypertension 64443873 I10 Carcinoma of colon, stage IV 684555143 C18.9 Health Concerns Section Related Observation LastModified by Organization Detai ls LastModified Time None Recorded Concern Status LastModified by Organization Details LastModified Time None Recorded Advance Directives Directive N: Payers Insurance Date Sequence Insurance Name Policy Number Policy Christian Covered Member ID Christian Member ID Guarantor Name 01/01/2025 [place] [employer] Lashae Wyman [id number] Lashae Wyman 01/01/2025 1 [place] Lashae Wyman [id number] Lashae Wyman Notes Date Note Type Note Provider Name and Address Organization Details Recorded Time 09/11/2024 text/html Patient presents to establish care. Lives with her . 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 No real medical history until recently. Has not seen PCP in years. States that in June she had abdominal pain and vomiting and ultimately passed out and went to [facility]. They did a CT and found [...] She is going to start chemo in [place] next month. She is going to have radiation in [place] after the chemo. She does have a [...] x 1 month. Natalia Wayne NP [address] [place], [address], [employer]. 09/13/2024 16:55:34 10/03/2024 text/html Patient presents for [...] pressure is normal. Natalia Wayne NP [address] [place], [address], [employer]. 10/04/2024 17:47:56 OBGyn Episode No OBEpisode recorded.
--- OUTSIDE RECORDS SUMMARY | 2025-04-25 11:10 | XMS_ITS | Encounter Summary ---
Author Organization Healthcare Address [address] [place] [address] Care Team Providers Care Extension Course Coordinator Name Role Phone Pcp, No Primary Care Provider Natalia Hector APRN Primary Care Provider [phone] Encounter Details Date Type Department Care Team (Late st Contact Info) Description 11/14/2024 Orders Only External Location [address] [place] [address] Provider, External Social History Tobacco Use Types [...] PM EDT Appointment [facility] [address] [place] [address] Manoj Fowler [facility] [address] [facility] [address] [place] [address] 08/12/2025 1:30 PM EST Clinical Support [facility] Multidisciplinary Oncology Clinic [address] [place] [phone] 08/12/2025 1:40 PM EST Office Visit [facility] Multidisciplinary Oncology Clinic [address] [place] [address] Joi Stewart MD [address] [facility] Tete Baker [facility] [address] [place] [phone] 08/14/2025 10:00 AM EST Appointment [facility] [address] [facility] 5th Floor [address] [place] [address] 08/14/2025 11:00 AM EST Office Visit [facility] [address] [place] [address] Hilary Cordova MD [address] [place] [address] documented as of this encounter [...] documented as of this encounter Care Teams Extension Course Coordinator Relationship Specialty Start Date End Date Pcp, Mady [address] [place] [address] PCP - General Family Medicine 06/11/24 12/09/24 Natalia Wayne, YVONNE [address] [place] [address] PCP - General 12/10/24 documented as of this encounter
--- OUTSIDE RECORDS SUMMARY | 2025-04-25 11:10 | XMS_ITS | Encounter Summary ---
Author Organization Healthcare Address [address] [place] [address] Care Team Providers Care Lamp Shade Assembler Name Role Phone Natalia Wayne YVONNE Primary Care Provider [phone] Reason for Visit * Reason Onset Date Comments Flexible Sigmoidoscopy 03/31/2025 Encounter Details Date Type Department Care Team (Latest Contact Info) Description 03/31/2025 Telephone [facility] [address] [place] [address] Manoj Fowler MD [address] [facility] [address] [place] [address] Flexible Sigmoidoscopy Social History Tobacco [...] Anticipates finishing chemo in approx 3-4 mo. Tank Car Inspector Radha Gilbert notified for r/s flex sig tentatively for late Jul. Pt will call back to clinic if still completing chemo therapy at that time. Pt verbalized understanding. No further questions or concerns. * Telephone Encounter - Joyce Yoo RN - 03/31/2025 1:17 PM EDT Message received from nurse liaison Javad Olivo that Dr. Yip's office ([facility]) is requesting 04/16 flex sig be rescheduled for later. Notes that pt has only received second infusion and will not complete chemo when flex sig is done. LVM with pt requesting call back to clinic to discuss. documented in this encounter Plan of Treatment Upcoming Encounters Date Type Department Care Team ([facility] st Contact Info) Description 07/30/2025 1:00 PM EDT Appointment [facility] [address] [place] [address] Manoj Fowler MD [address] [address] 08/12/2025 1:30 PM EST Clinical Support [facility] Multidisciplinary Oncology Clinic [address] [place] [address] 08/12/2025 1:40 PM EST Office Visit [facility] Multidisciplinary Oncology Clinic [address] [place] [address] Jio Stewart MD 800 [facility] [address] [place] [address] 08/14/2025 10:00 AM EST Appointment [facility] Vascular Lab [address] [place] [address] 08/14/2025 11:00 AM EST Office Visit [facility] Comprehensive Vascular Clinic [address] [place] [address] Hilary Cordova MD [address] [place] [address] documented as of this encounter Goals Goal [...] documented as of this encounter Care Teams Lamp Shade Assembler Relationship Specialty Start Date End Date Natalia Wayne, YVONNE [address] [place] [address] PCP - General 12/10/24 documented as of this encounter
--- OUTSIDE RECORDS SUMMARY | 2025-04-25 11:10 | XMS_ITS | Encounter Summary ---
Author Organization Healthcare Address [address] [place] [address] Care Team Providers Care Telemetry Monitor Name Role Phone Natalia Wayne YVONNE Primary Care Provider [phone] Encounter Details Date Type Department Care Team (Late st Contact Info) Description 03/31/2025 Telephone [facility] [address] [place] [address] Manoj Fowler MD [address] [place] [address] Social History Tobacco Use Types [...] any time in the past 12 [facility], were you [facility] or living [...] PM EDT Appointment [facility] [address] [place] [address] Manoj Fowler MD [facility] [id number] [place] [address] 08/12/2025 1:30 PM EST Clinical Support [facility] Multidisciplinary Oncology Clinic [address] [place] [address] 08/12/2025 1:40 PM EST Office Visit [facility] Multidisciplinary Oncology Clinic [address] [place] [address] Joi Stewart MD 800 [facility] [address] [place] [address] 08/14/2025 10:00 AM EST Appointment [facility] Vascular Lab [address] [place] [address] [address] [place] [address] 08/14/2025 11:00 AM EST Office Visit [facility] Comprehensive Vascular Clinic [address] [place] [address] [address] [place] [address] Hilary Cordova MD [address] [facility] [address] [place] [address] documented as of this encounter Goals Goal Patient Goal Type Associated Problems Recent Progress Patient-Stated? Author Autogenerat ed Goal Care Plan Autogenerated Problem Geno Iarheta documented as of this encounter Visit Diagnoses [...] documented as of this encounter Care Teams Telemetry Monitor Relationship Specialty Start Date End Date Natalia Wayne, YVONNE [address] [place] [place] [id number] PCP - General 12/10/24 documented as of this encounter
[2025-04-25] MEDS: SODIUM CHLORIDE 0.9% 10ML FLUSH SYRINGE 10 ML IV (11:15)
== END 2025-04-25 11:22 | disposition home or self-care (01) ==
LOC: INF 11:08
PROVIDERS: PCP Nurse Practitioner Family; Visit Provider Internal Medicine Medical Oncology
DX: C20 Malignant neoplasm of rectum (principal)
CPT/HCPCS: 96523; J1642

== ENCOUNTER 2025-05-07 09:25 | Outpatient (CLI) | payer MEDICARE, SELFPAY ==
--- OUTSIDE RECORDS SUMMARY | 2025-04-22 11:26 | XMS_ITS | Encounter Summary ---
Author Organization [facility] Address [address] [place] [address] Care Team Providers Care Pretzel Twister Name Role Phone Natalia Wayne YVONNE Primary Care Provider [phone] Reason for Referral * Imaging (Routine) - Closed Specialty Diagnoses / Procedures Referred By Lexii t Referred To Contact Radiology Diagnoses Rectal cancer (CMS/HCC) Procedures CT Chest w IV Contrast Joi Stewart MD [address] [address] Phone: tel: fax: Referral ID Status Reason Start Date Expiration Date Visits Re quested Visits Authorized [id number] Closed 02/13/2025 08/15/2026 1 1 * Imaging (Routine) - Closed Specialty Diagnoses / Procedures Referred By Lexii moody Referred To Contact Radiology Diagnoses Rectal cancer (CMS/HCC) Procedures CT Abdomen Pelvis w IV Contrast Joi Stewart MD [address] [address] Phone: tel: fax: Referral ID Status Reason Start Date Expiration Date Visits Re quested Visits Authorized [id number] Closed 02/13/2025 08/15/2026 1 1 Reason for Visit * Imaging (Routine) - Closed Specialty Diagnoses / Procedures Referred By Lexii moody Referred To Contact Radiology Diagnoses Rectal cancer (CMS/HCC) Procedures CT Chest w IV Contrast Joi Stewart MD 800 [facility] [address] [place] [address] Phone: tel: fax: Referral ID Status Reason Start Date Expiration Date Visits Re quested Visits Authorized [id number] Closed 02/13/2025 08/15/2026 1 1 Encounter Details Date Type Department Care Team (Latest Contact Info) Description 04/22/2025 11:26 AM EDT - 04/22/2025 11:59 PM EDT Hospital Encounter [facility] CT [address] [place] [address] Rectal cancer (CMS/HCC) Discharge Disposition: [...] any time in the past 12 m [facility], were you homeless or living in a [...] as needed for nausea or vomiting. 03/12/2025 rosuvastatin (Crestor) 20 MG tablet Take 1 [...] Upcoming Encounters Date Type Department Care Team ([facility] st Contact Info) Description 07/30/2025 1:00 PM EDT Appointment [facility] [address] [place] [address] Manoj Fowler MD [address] [place] [address] 08/12/2025 1:30 PM EST Clinical Support [facility] Multidisciplinary Oncology Clinic [address] [place] [address] 08/12/2025 1:40 PM EST Office Visit [facility] Multidisciplinary Oncology Clinic [address] [place] [address] Joi Stewart MD 800 [facility] Tete Baker [facility] [address] [place] [address] 08/14/2025 10:00 AM EST Appointment [facility] Vascular Lab [address] [facility] 5th Floor [address] [place] [address] 08/14/2025 11:00 AM EST Office Visit [facility] Comprehensive Vascular Clinic [address] [facility] 5th Floor [address] [place] [address] Hilary Cordova MD [address] [place] [address] documented as of this encounter Goals Goal [...] Total DLP (Dose-Length Product): 640.83 mGy.cm (accession [id number]), 640.83 mGy.cm (accession [id number]). Please note: The reported value represents the [...] Total DLP (Dose-Length Product): 640.83 mGy.cm (accession [id number]),640.83 mGy.cm (accession [id number]). Please note: The reported valuerepresents the total [...] Total DLP (Dose-Length Product): 640.83 mGy.cm (accession [id number]), 640.83 mGy.cm (accession [id number]). Please note: The reported value represents the [...] Total DLP (Dose-Length Product): 640.83 mGy.cm (accession [id number]),640.83 mGy.cm (accession [id number]). Please note: The reported valuerepresents the total [...] documented as of this encounter Care Teams Pretzel Twister Relationship Specialty Start Date End Date Natalia Wayne, SAUSAGE CUTTER [address] [place] [phone] PCP - General 12/10/24 documented as of this encounter
--- OUTSIDE RECORDS SUMMARY | 2025-04-22 14:50 | XMS_ITS | Encounter Summary ---
Author Organization Healthcare Address [address] [place] [address] Care Team Providers Care Tree Marker Name Role Phone Natalia Wayne YVONNE Primary Care Provider [phone] Encounter Details Date Type Department Care Team (Latest Contact Info) Description 04/22/2025 2:50 PM EDT Clinical Support [facility] Multidisciplinary Oncology Clinic [address] [place] [address] Anika Joya, RN Rectal cancer (CMS/HCC) Social [...] any time in the past 12 m [facility], were you homeless or [...] PM EDT Appointment [facility] [address] [place] [address] Manoj Fowler MD [address] [facility] [address] [place] [address] 08/12/2025 1:30 PM EST Clinical Support [facility] Multidisciplinary Oncology Clinic [address] [place] [address] 08/12/2025 1:40 PM EST Office Visit [facility] Multidisciplinary Oncology Clinic [address] [place] [address] Joi Stewart MD 800 [facility] [address] [place] [address] 08/14/2025 10:00 AM EST Appointment [facility] Vascular Lab [address] [place] [address] 08/14/2025 11:00 AM EST Office Visit [facility] Comprehensive Vascular Clinic [address] [place] [address] [address] [place] [address] Hilary Cordova MD [address] [facility] [address] [place] [address] documented as of this encounter Goals Goal Patient Goal Type Associated Problems Recent Progress Patient-Stated? Author Autogenerat ed Goal Care Plan Autogenerated Problem Geno Irahtea documented as of this encounter Procedures Procedure Name Priority Date/Time Associated Diagnosis Comments CBC WITH AUTO DIFFERENTIAL Routine 04/22/2025 3:09 PM EDT Rectal cancer (CMS/HCC) CEA, SERUM Routine 04/22/2025 3:09 PM EDT Rectal cancer (CMS/HCC) COMPREHENSIVE METABOLIC PANEL, PLASMA Routine 04/22/2025 3:09 PM EDT Rectal cancer (CMS/HCC) documented in this encounter Results * (ABNORMAL) Comprehensive Metabolic Panel, Plasma (04/22/2025 3:09 PM EDT) Pathologist [facility] Glucose, Plasma 120(H) 74 - 99 mg/dL [...] ult [facility] [address] [place] [address] * CEA, Serum (04/22/2025 3:09 PM EDT) CEA, Serum 1.9 <4.0 ng/mL 04/22/2025 5:10 PM EDT [facility] Blood Blood sample taken from central line [...] ult [facility] [address] [place] [address] * (ABNORMAL) CBC and Differential (04/22/2025 3:09 [...] ult [facility] [address] [place] [address] documented in this encounter Visit Diagnoses Diagnosis [...] documented as of this encounter Care Teams Tree Marker Relationship Specialty Start Date End Date Natalia Wayne APRN [address] [place] [address] PCP - General 12/10/24 documented as of this encounter
--- OUTSIDE RECORDS SUMMARY | 2025-04-22 15:00 | XMS_ITS | Encounter Summary ---
Author Organization Healthcare Address [address] [place] [address] Care Team Providers Care Vocational Technical Education Teacher Name Role Phone Natalia Wayne HOUSING COURT JUDGE Primary Care Provider [phone] Reason for Visit * Reason Comments Follow-up Rectal cancer Encounter Details Date Type Department Care Team ([facility] st Contact Info) Description 04/22/2025 3:00 PM EDT Office Visit [facility] Multidisciplinary Oncology Clinic [address] [place] [address] Joi Stewart MD 800 [facility] [address] [place] [address] Rectal cancer (CMS/HCC) (Primary Dx) [...] any time in the past 12 m [facility], were you homeless or living [...] Several days 04/22/2025 2:48 PM EDT Alia Fnog Patient Health Questionnaire -2 Score 2 04/22/2025 [...] refused to cover infusion 5FU) 10/21/24-10/24/24: hospitalized [place] with marked dehydration from severe diarrhea due [...] course XRT). Pt will receive XRT at [place] but 5FU civi through due to insurance restrictions (insurance would not approve 5FU civi to be given at [place], but we were able to get coverage for 5FU civi at ). After completion of chemoXRT, would need 4 months FOLFOX to complete total neoadjuvant therapy for clinical stage III rectal cancer prior to surgical resection--depending on tolerance. 12/25/24: first XRT in [place] 12/24/24: start concurrent 5FU infusion with XRT (5FU civi 225mg/m2 iv over 24 hrs daily on days 1-7for 5 weeks concurrent with XRT--long course XRT). Pt will receive XRT at [place] but 5FU civi through due to insurance restrictions (insurance would not approve 5FU civi to be given at [place], but we were able to get coverage [...] --currently getting FOLFOX with Dr. Yip in [place], tolerating well Follow up - Pending CT CAP from today - To complete FOLFOX with Dr. Yip in [place] - We will follow up after she finished, attempt same day with Dr. Fowler 07/30 - 07/30/25: flex sig sched with Dr. Manoj Fowler Patient and family encouraged to call if any problems or concerns prior to next visit. Radiation oncologist Shayy Ovalle. Dr. Mariia Marks phone [phone] >30 minutes was spent on this encounter; including preparing to see the patient, which involved review/interpretation of diagnostics and reports; obtaining and/or reviewing separately obtained history; performing appropriate physical exam; ordering/scheduling medications, tests or procedures; communicating findings and counseling/educating the patient, family and/or caregiver; documentation inEMR; and care coordination. Joi Stewart MD Division of Medical Oncology [facility] Oncology History: Oncology History Overview Note [...] refused to cover infusion 5FU) 10/21/24-10/24/24: hospitalized [place] with marked dehydration from severe diarrhea due [...] course XRT). Pt will receive XRT at [place] but 5FU civi through due to insurance restrictions (insurance would not approve 5FU civi to be given at [place], but we were able to get coverage [...] sched with Dr. Manoj Fowler Rectal cancer ([facility]/HCC) 08/06/2024 Cancer Staged Staging form: Colon and Rectum, AJCC 8th Edition, Clinical stage from 08/06/2024: Stage IIIB (cT3, cN1, cM0) - Signed by Manoj Fowler MD on 08/13/2024 08/13/2024 Initial Diagnosis Rectal cancer ([facility]) 12/16/2024 - 12/16/2024 Chemotherapy mitoMYcin (Mutamycin) [...] Continue neoadjuvant FOLFOX with Dr. Yip in [place]. Will see her back here in August 2025 after flex sig with Dr. Fowler. documented in this encounter Plan of Treatment Upcoming Encounters Date Type Department Care Team (Late st Contact Info) Description 07/30/2025 1:00 PM EDT Appointment [facility] [address] [place] [address] Manoj Fowler MD [id number] [place] [address] 08/12/2025 1:30 PM EST Clinical Support [facility] [address] [place] [address] 08/12/2025 1:40 PM EST Office Visit [facility] Multidisciplinary Oncology Clinic [address] [place] [address] Joi Stewart MD 800 [facility] [address] [place] [address] 08/14/2025 10:00 AM EST Appointment [facility] Vascular Lab [address] [place] [address] 08/14/2025 11:00 AM EST Office Visit [facility] Comprehensive Vascular Clinic [address] [place] [address] [address] [place] [address] Hilary Cordova MD [id number] [place] [address] Scheduled Orders Name Type Priority [...] documented as of this encounter Care Teams Vocational Technical Education Teacher Relationship Specialty Start Date End Date Natalia Wayne, YVONNE [address] [place] [address] PCP - General 12/10/24 documented as of this encounter
[2025-05-07] VITALS (10 sets, daily range): BP systolic 143–185; BP diastolic 63–83; PULSE 58–64; RESP 15–16; TEMP 36.4; O2SAT 98; BMI 22.4
--- OUTSIDE RECORDS SUMMARY | 2025-05-07 09:28 | XMS_ITS ---
Author Organization [facility] Address [address] [place] [address] Care Team Providers Care Dry End Operator Name Role Phone Natalia Wayne APRN Primary Care Provider [phone] Active Problems Problem Noted Date Diagnosed Date [...]
--- OUTSIDE RECORDS SUMMARY | 2025-05-07 09:28 | XMS_ITS | Encounter Summary ---
Author Organization Healthcare Address [address] [place] [address] Care Team Providers Care Cloth Beamer Name Role Phone Natalia Wayne YVONNE Primary Care Provider [phone] Encounter Details Date Type Department Care Team (Late st Contact Info) Description 03/31/2025 Telephone [facility] [address] [place] [address] Manoj Fowler MD [address] [place] [address] Social History Tobacco Use Types [...] PM EDT Appointment [facility] [address] [place] [address] Manoj Fowler MD [facility] [id number] [place] [address] 08/12/2025 1:30 PM EST Clinical Support [facility] Multidisciplinary Oncology Clinic [address] [place] [address] 08/12/2025 1:40 PM EST Office Visit [facility] Multidisciplinary Oncology Clinic [address] [place] [address] Joi Stewart MD 800 [facility] [address] [place] [address] 08/14/2025 10:00 AM EST Appointment [facility] Vascular Lab [address] [place] [address] [address] [place] [address] 08/14/2025 11:00 AM EST Office Visit [facility] Comprehensive Vascular Clinic [address] [place] [address] [address] [place] [address] Hilary Cordova MD [address] [facility] [address] [place] [address] documented as of this encounter Goals Goal [...] documented as of this encounter Care Teams Cloth Beamer Relationship Specialty Start Date End Date Natalia Wayne, YVONNE [address] [place] [id number] PCP - General 12/10/24 documented as of this encounter
--- OUTSIDE RECORDS SUMMARY | 2025-05-07 09:28 | XMS_ITS | Encounter Summary ---
Author Organization Healthcare Address [address] [place] [address] Care Team Providers Care Ripening Room Operator Name Role Phone Natalia Wayne YVONNE Primary Care Provider [phone] Reason for Visit * Reason Onset Date Comments Flexible Sigmoidoscopy 03/31/2025 Encounter Details Date Type Department Care Team (Latest Contact Info) Description 03/31/2025 Telephone [facility] [address] [place] [address] Manoj Fowler MD [address] [facility] [address] [place] [address] Flexible Sigmoidoscopy Social History Tobacco [...] any time in the past 12 m [facility], were you homeless or [...] Anticipates finishing chemo in approx 3-4 mo. Assistant Kitchen Manager Radha Gilbert notified for r/s flex sig tentatively for late Jul. Pt will call back to clinic if still completing chemo therapy at that time. Pt verbalized understanding. No further questions or concerns. * Telephone Encounter - Joyce Yoo RN - 03/31/2025 1:17 PM EDT Message received from nurse liaison Javad Olivo that Dr. Yip's office ([facility]) is requesting 04/16 flex sig be rescheduled for later. Notes that pt has only received second infusion and will not complete chemo when flex sig is done. LVM with pt requesting call back to clinic to discuss. documented in this encounter Plan of Treatment Upcoming Encounters Date Type Department Care Team ([facility] st Contact Info) Description 07/30/2025 1:00 PM EDT Appointment [facility] [address] [place] [address] Manoj Fowler MD [address] [address] 08/12/2025 1:30 PM EST Clinical Support [facility] Multidisciplinary Oncology Clinic [address] [place] [address] 08/12/2025 1:40 PM EST Office Visit [facility] Multidisciplinary Oncology Clinic [address] [place] [address] Joi Stewart MD 800 [facility] [address] [place] [address] 08/14/2025 10:00 AM EST Appointment [facility] Vascular Lab [address] [place] [address] 08/14/2025 11:00 AM EST Office Visit [facility] Comprehensive Vascular Clinic [address] [place] [address] Hilary Cordova MD [address] [place] [address] documented as of this encounter Goals Goal [...] documented as of this encounter Care Teams Ripening Room Operator Relationship Specialty Start Date End Date Natalia Wayne, YVONNE [address] [place] [address] PCP - General 12/10/24 documented as of this encounter
--- OUTSIDE RECORDS SUMMARY | 2025-05-07 09:28 | XMS_ITS | Clinical Summary ---
Author Organization [facility] Address [address] [place] [address] Care Team Providers Care Nutritional Services Cook Name Role Phone Unavailable Primary Care Provider [...]
--- OUTSIDE RECORDS SUMMARY | 2025-05-07 09:28 | XMS_ITS | Encounter Summary ---
Author Organization [facility] Address [address] [place] [address] Care Team Providers Care Data Software Engineer Name Role Phone Natalia Wayne YVONNE Primary Care Provider [phone] Encounter Details Date Type Department Care Team [...] any time in the past 12 m [facility], were you homeless [...] PM EDT Appointment [facility] [address] [place] [address] Manoj Fowler MD [address] [facility] [address] [place] [address] 08/12/2025 1:30 PM EST Clinical Support [facility] Multidisciplinary Oncology Clinic [address] [place] [address] 08/12/2025 1:40 PM EST Office Visit [facility] Multidisciplinary Oncology Clinic [address] [place] [address] Joi Stewart MD 800 [facility] [address] [facility] [address] [place] [address] 08/14/2025 10:00 AM EST Appointment [facility] Vascular Lab [address] [place] [address] 08/14/2025 11:00 AM EST Office Visit [facility] Comprehensive Vascular Clinic [address] [place] [address] [address] [place] [address] Hilary Cordova MD [address] [facility] [address] [place] [address] documented as of this encounter [...] documented as of this encounter Care Teams Data Software Engineer Relationship Specialty Start Date End Date Natalia Wayne, YVONNE [address] [place] [address] PCP - General 12/10/24 documented as of this encounter
--- OUTSIDE RECORDS SUMMARY | 2025-05-07 09:28 | XMS_ITS | Clinical Summary ---
Author Organization [facility] Address [address] [place] [address] Care Team Providers Care Food Concession Manager Name Role Phone Natalia Wayne YVONNE Primary Care Provider [phone] Allergies No known active allergies Medications rosuvastatin [...] EDT Office Visit [facility] [address] [place] [address] Joi Stewart MD Rectal cancer (CMS/HCC) (Primary Dx) 04/22/2025 2:50 PM EDT Clinical Support [facility] Multidisciplinary Oncology Clinic [address] [place] [address] Anika Joya, RN Rectal cancer (CMS/HCC) 04/22/2025 11:26 AM EDT - 04/22/2025 11:59 PM EDT Hospital Encounter [facility] [address] [place] [address] Rectal cancer (CMS/HCC) Discharge Disposition: Home or Self Care 04/22/2025 Travel 03/31/2025 Telephone [facility] [address] [place] [address] Manoj Fowler MD 03/31/2025 Telephone [facility] [address] [place] [address] Manoj Fowler MD Flexible Sigmoidoscopy 02/13/2025 Orders Only [facility] [address] [place] [address] Cecilia Walters RN Rectal cancer (CMS/HCC) (Primary Dx) 02/04/2025 2:40 PM EDT Office Visit [facility] Multidisciplinary Oncology Clinic [address] [place] [address] Joi Stewart MD Rectal cancer (CMS/HCC) (Primary Dx) 02/04/2025 2:00 PM EDT Office Visit [facility] Multidisciplinary Oncology Clinic [address] [place] [address] Manoj Fowler MD Rectal cancer (CMS/HCC) (Primary Dx) 02/04/2025 9:12 AM EDT - 02/04/2025 11:59 PM EDT Hospital Encounter [facility] Radiology [address] [place] [address] Rectal cancer (CMS/HCC) Discharge Disposition: Home or Self Care 02/04/2025 Travel from Last 3 Months Family History [...] time in the past 12 m [facility], were you homeless or living [...] Appointment [facility] [address] [place] [address] Manoj Fowler MD [address] [facility] [address] [place] [address] 08/12/2025 1:30 PM EST Clinical Support [facility] Multidisciplinary Oncology Clinic [address] [place] [address] 08/12/2025 1:40 PM EST Office Visit [facility] Multidisciplinary Oncology Clinic [address] [place] [address] Joi Stewart MD 800 [facility] [address] [place] [address] 08/14/2025 10:00 AM EST Appointment [facility] Vascular Lab [address] [facility] 5th Floor [address] [place] [address] 08/14/2025 11:00 AM EST Office Visit [facility] Comprehensive Vascular Clinic [address] [place] [address] Hilary Cordova MD [address] [facility] [address] [place] [address] Health Maintenance Due Date Last Done Comments [facility]-Bone Density Scan 1950 [facility]-Medicare Annual Wellness (AWV) 1950 [facility]-Infant/Child/Adol SDOH Screenings 1950 [facility]-DTaP,Tdap,and Td Vaccine s (1 - Tdap) 1968 [facility]-Pneumococcal Vaccine: 50 + Years (1 of 2 - PCV) 1968 [facility]-Zoster Vaccines (1 of 2) 1968 CT Colonography 1994 FIT-DNA 1994 FIT 1994 FOBT 1994 Sigmoidoscopy 1994 [id number] Vaccine (2 - Cady risk series) 01/07/2021 [...] ORDERABLES Final Res ult Performing Organization Address [facility]/ZIP Co de Phone Number [facility] [address] [place] [address] * CEA, Serum (04/22/2025 3:09 PM EDT) CEA, Serum 1.9 <4.0 ng/mL 04/22/2025 5:10 PM EDT [facility] Blood Blood sample taken from central line / Unknown (Port) Long-term Catheter / Unknown 04/22/2025 3:09 PM EDT 04/22/2025 3:38 PM EDT [facility] - 04/22/2025 5:10 PM EDT Normal range for smokers: < 5.5 ng/ml Normal range for non-smokers: <=4.0 ng/ml Performed by Karin electrochemiluminescent immunoassay. Results obtained with different test methods or kits cannot be used interchangeably. Joi Stewart MD LAB BLOOD ORDERABLES Final Res ult Performing Organization Address [facility] Co de Phone Number [facility] [address] [place] [address] * (ABNORMAL) Comprehensive Metabolic Panel, Plasma (04/22/2025 [...] Res ult [facility] [address] [place] [address] * CT Abdomen Pelvis w IV Contrast [...] Total DLP (Dose-Length Product): 640.83 mGy.cm (accession [id number]), 640.83 mGy.cm (accession [id number]). Please note: The reported value represents the [...] Total DLP (Dose-Length Product): 640.83 mGy.cm (accession [id number]),640.83 mGy.cm (accession [id number]). Please note: The reported valuerepresents the total [...] Total DLP (Dose-Length Product): 640.83 mGy.cm (accession [id number]), 640.83 mGy.cm (accession [id number]). Please note: The reported value represents the [...] Total DLP (Dose-Length Product): 640.83 mGy.cm (accession [id number]),640.83 mGy.cm (accession [id number]). Please note: The reported valuerepresents the total [...] Pretreatment Tumor staging: T3a N+ Prior treatment: VOLUMETRIC WEIGHER completed 01/29 TECHNIQUE: Multiplanar, multisequence MR [...] Pretreatment Tumor staging: T3a N+ Prior treatment: VOLUMETRIC WEIGHER completed 01/29 TECHNIQUE: Multiplanar, multisequence MR imaging of the pelvis was performed on a 3Tmagnet both before and after administration of 6.5 mL of intravenousGadavist contrast. COMPARISON: 08/06/2024: MR pelvis with and without contrast FINDINGS: Treated primary tumor characteristics: Significantly decreased size of thepolypoid lesion in the upper rectum with minimal residual disease. New [id number] hypointense T2 scarring along the left/posterior rectum at thesite of primary tumor. Subtle residual nodular focus of hazy B9jzrsbwntyjgj signal along the mucosal/submucosal margin of the left upperrectum at the site of primary tumor (series 7, images 29/30 and series 8,images 43/45), with peripheral T2 dark scarring along the serosal margin.This focus demonstrates hyperenhancement similar to prior as well asrestricted diffusion (series 13, image 28 and series 10/11, hqtesv72/30). An area of T2 intermediate signal along [...] signing this report, I, the attending physician, attjesusat I have personally reviewed the images/data for [...] Antibody Negative Negative 08/31/2024 6:21 PM EST [facility] Blood Venous blood specimen / Unknown Venipuncture / Unknown 08/31/2024 5:22 PM EST 08/31/2024 5:40 PM EST Meño Cano MD LAB BLOOD ORDERABLES Final Re sult [facility] [address] [place] [address] * Colonoscopy (07/22/2024 9:29 AM EDT) Anatomical [...] medications. Staff Staff Role Robert Bueno Endo Radio Assembler Shruti Gutierrez, Carmine Torres CRNA Endo Radio Assembler Richard Borja MD Proceduralist Marcelina Arana Nurse [...] of bowel preparation was evaluated using the [place] Bowel Preparation Scale with scores of: right [...] PATHOLOGY EXAM Richard Borja MD 07/22/2024 09 B : bx Tissue Rectum SURGICAL PATHOLOGY [...] Date Autogenerated Problem 03/31/2025 Insurance [employer] [place] [id number] MEDICARE Advance Directives * Full Code (Latest Code Status on File) Date Activated Date Inactivated Comments 09/02/2024 9:48 PM 09/05/2024 12:25 PM Question Answer Comments Patient has decision-making capacity? Yes * Full Code Date Activated Date Inactivated Comments 08/31/2024 7:20 PM 09/02/2024 9:48 PM Question Answer Comments Patient has decision-making capacity? Yes Care Teams Food Concession Manager Relationship Specialty Start Date End Date Natalia Wayne APRN [address] [place] [address] PCP - General 12/10/24
--- OUTSIDE RECORDS SUMMARY | 2025-05-07 09:28 | XMS_ITS | Encounter Summary ---
Author Organization Healthcare Address [address] [place] [address] Care Team Providers Care Religion Professor Name Role Phone Pcp, No Primary Care Provider Natalia Hector APRN Primary Care Provider [phone] Encounter Details Date Type Department Care Team (Late st Contact Info) Description 11/14/2024 Orders Only External Location [address] [place] [address] Provider, External Social History Tobacco Use Types [...] PM EDT Appointment [facility] [address] [place] [address] Manoj Fowler MD [address] [facility] [address] [place] [address] 08/12/2025 1:30 PM EST Clinical Support [facility] Multidisciplinary Oncology Clinic [address] [place] [address] 08/12/2025 1:40 PM EST Office Visit [facility] Multidisciplinary Oncology Clinic [address] [place] [address] Joi Stewart MD 800 [facility] [address] [facility] [address] [place] [address] 08/14/2025 10:00 AM EST Appointment [facility] Vascular Lab [address] [facility] 5th Floor [address] [place] [address] 08/14/2025 11:00 AM EST Office Visit [facility] Comprehensive Vascular Clinic [address] Floor [address] [place] [address] Hilary Cordova MD [address] [place] [address] documented as of this encounter [...] documented as of this encounter Care Teams Religion Professor Relationship Specialty Start Date End Date Pcp, Mady [address] [place] [address] PCP - General Family Medicine 06/11/24 12/09/24 Natalia Wayne, YVONNE [address] [place] [address] PCP - General 12/10/24 documented as of this encounter
[2025-05-07 09:49] LABS: Hematocrit 33.8 % (37.0-47.0); Hemoglobin 11.7 g/dL (12.2-16.2); Immature Granulocytes % 0.2 %; Mean Corpuscular HGB Conc 34.6 g/dL (31.8-35.4); Mean Corpuscular Hemoglobin 34.6 pg (27.0-31.2); Mean Corpuscular Volume 100.0 fl (81-99); Nucleated Red Blood Cells % 0 %; Platelet Count 151 K/mm3 (142-424); Red Blood Count 3.38 M/mm3 (4.20-5.40); Red Cell Distribution Width-SD 55.8 fL; White Blood Count 5.0 K/mm3 (4.8-10.8)
[2025-05-07 09:54] LABS: Albumin Level 3.9 g/dl (3.5-5.0); Chloride 104 mmol/L (98-107)
[2025-05-07 09:55] LABS: Potassium 3.6 mmoL/L (3.5-5.1); Sodium 133 mmol/L (136-145)
[2025-05-07 09:57] LABS: Alanine Aminotransferase 46 U/L (12-78); Anion Gap 6.6 mEq/L (5-15); Aspartate Amino Transferase 43 U/L (14-36); Blood Urea Nitrogen 16 mg/dl (7-17); Carbon Dioxide 26 mmol/L (22.0-30.0); Creatinine Clearance Estimated 36 mL/min (50-200); Creatinine,Serum 1.40 mg/dl (0.52-1.04); Estimated Glomerular Filt Rate 37 ml/min (>60); GFR (African American) 44 ML/MIN (>60)
[2025-05-07 09:58] LABS: Albumin/Globulin Ratio 1.3 (1.1-1.8); Alkaline Phosphatase 90 U/L (38-126); Bilirubin,Total 0.7 mg/dl (0.2-1.3); Calcium 9.5 mg/dl (8.4-10.2); Globulin 2.9 g/dL (1.3-3.2); Glucose 96 mg/dl (74-100); Total Protein,Serum 6.8 g/dl (6.3-8.2)
[2025-05-07] MEDS: DEXTROSE 5 % IN WATER 100 ML IV (10:50)
[2025-05-07] MEDS: ONDANSETRON 4MG ODT 16 MG SL (10:51)
[2025-05-07] MEDS: POTASSIUM CHLORIDE 20MEQ TAB 40 MEQ PO (10:51)
[2025-05-07] MEDS: DEXAMETHASONE 4MG TABLET 12 MG PO (10:52)
[2025-05-07] MEDS: DEXTROSE 5% IV ×2 (11:25)
[2025-05-07] MEDS: LEUCOVORIN CALCIUM IV (11:25)
[2025-05-07] MEDS: OXALIPLATIN IV (11:25)
[2025-05-07] MEDS: WATER IV ×2 (11:25)
[2025-05-07] MEDS: FLUOROURACIL 500MG/10ML VIAL 700 MG IV (14:10)
[2025-05-07] MEDS: SODIUM CHLORIDE IV (14:25)
[2025-05-07] MEDS: FLUOROURACIL IV (14:25)
== END 2025-05-07 14:30 | disposition home or self-care (01) ==
LOC: INF 09:26
PROVIDERS: PCP Nurse Practitioner Family; Visit Provider Internal Medicine Medical Oncology
DX: C20 Malignant neoplasm of rectum (principal); Z51.11 Encounter for antineoplastic chemotherapy
CPT/HCPCS: 80053; 85025; 96368; 96411; 96413; 96415; 96416; J0640; J7060; J8540; J9190; J9263; Q0162

== ENCOUNTER 2025-05-09 12:31 | Outpatient (CLI) | payer MEDICARE, SELFPAY ==
--- OUTSIDE RECORDS SUMMARY | 2025-04-22 11:26 | XMS_ITS | Encounter Summary ---
Author Organization [facility] Address [address] [place] [address] Care Team Providers Care Nailer Operator Name Role Phone Natalia Wayne YVONNE Primary Care Provider [phone] Reason for Referral * Imaging (Routine) - Closed Specialty Diagnoses / Procedures Referred By Lexii t Referred To Contact Radiology Diagnoses Rectal cancer (CMS/HCC) Procedures CT Chest w IV Contrast Joi Stewart MD [address] [address] Phone: tel: fax: Referral ID Status Reason Start Date Expiration Date Visits Re quested Visits Authorized [id number] Closed 02/13/2025 08/15/2026 1 1 * Imaging (Routine) - Closed Specialty Diagnoses / Procedures Referred By Lexii moody Referred To Contact Radiology Diagnoses Rectal cancer (CMS/HCC) Procedures CT Abdomen Pelvis w IV Contrast Joi Stewart MD [address] [address] Phone: tel: fax: Referral ID Status Reason Start Date Expiration Date Visits Re quested Visits Authorized [id number] Closed 02/13/2025 08/15/2026 1 1 Reason for Visit * Imaging (Routine) - Closed Specialty Diagnoses / Procedures Referred By Lexii moody Referred To Contact Radiology Diagnoses Rectal cancer (CMS/HCC) Procedures CT Chest w IV Contrast Joi Stewart MD [address] [facility] [address] [place] [address] Phone: tel: fax: Referral ID Status Reason Start Date Expiration Date Visits Re quested Visits Authorized [id number] Closed 02/13/2025 08/15/2026 1 1 Encounter Details Date Type Department Care Team (Latest Contact Info) Description 04/22/2025 11:26 AM EDT - 04/22/2025 11:59 PM EDT Hospital Encounter [facility] CT [address] [place] [address] Rectal cancer (CMS/HCC) Discharge Disposition: Home or Self Care Social History Tobacco Use Types Packs/Day Years Used Date Smoking Tobacco: Every Day Cigarettes 0.5 50.6 Started: 1974 Passive Smoke Exposure: Past Smokeless [...] Answer Date Recorded Patient Health Questionnaire-2 Score 2 04/22/2025 Hunger Vital Sign Answer Date Recorded Within [...] time in the past 12 m [facility], were you homeless or living [...] on file documented as of this encounter Functional Status * Over the past 2 weeks, how often have you been bothered by any of the following problems? Question Answer Date of Assessment Author Little interest or pleasure in doing things Several days 04/22/2025 2:48 PM EDT Alia Fong Feeling down, depressed, or hopeless Several days 04/22/2025 2:48 PM EDT Alia Fong Patient Health Questionnaire -2 Score 2 04/22/2025 2:48 PM EDT Alia Fong * Question Answer Date of Assessment Author Thoughts that you would be b tanvi off or hurting yourself in some way Not at all 04/22/2025 2:48 PM EDT Alia Fong documented as of this encounter Medications at Time of Discharge acetaminophen (Tylenol) 500 MG tablet Take 1 tablet (500 mg) by mouth every 6 (six) hours. 100 tablet 09/05/2024 ondansetron ODT (Zofran-ODT) 4 MG disintegrating tablet Take 1 tablet (4 mg) by mouth every 6 (six) hours if needed for nausea or vomiting. 20 tablet 09/05/2024 prochlorperazine (Compazine) 10 MG tablet Take 1 tablet by mouth every 6 hours as needed for nausea or vomiting. 03/12/2025 aspirin 81 MG EC tablet Take 1 [...] times a day as needed for diarrhea. rosuvastatin (Crestor) 20 MG tablet Take 1 tablet (20 mg) by mouth every night. 30 tablet 5 08/08/2024 documented as of this encounter Miscellaneous Notes * Adilene Jolley - 04/22/2025 11:34 AM EDT Images from the original note were not included. 1639 Caring for Yourself after Contrast Imaging If you had ORAL contrast: ? You can go back to your normal diet and activities as tolerated. ? Drink plenty of fluids, unless told otherwise. If you had IV contrast: ? You can go back to your normal diet and activities as tolerated. ? Drink plenty of fluids, unless told otherwise. ? Leave a bandage on the site for 30 minutes (where the IV was inserted or blood was drawn). If you had Intravesical (bladder) contrast: ? Return to normal diet and activity. What you need to know about delayed reaction to IV contrast What is IV Contrast? ? Contrast is a dye that is put into your body through an IV. ? It is used for imaging scans such as CT scans and MRIs. ? The contrast makes blood vessels, organs and other parts of your body show up better on the scan. What do I need to do after IV contrast? ? Drink lots of fluids. This will help flush the contrast out of your system. ? Drink 2-3 extra glasses or bottles of water within 4 hours of your scan. What is a contrast reaction? ? A contrast reaction is a bad side effect from the contrast dye. ? It is rare but it does happen. ? They can be mild - such as sneezing, itching, or hives. ? They can be severe - such as trouble breathing, throat swelling, and irregular heart beat. When do these reactions happen? ? They often happen right after the contrast is injected. ? Some happen hours after going home. Go to the nearest Emergency Department right away if you have any of these symptoms after you leavethe clinic or hospital. ? Sneezing ? Itching in your mouth, throat, eyes, ears, or skin ? Rash or hives ? Throwing up or stomach sickness ? High heart rate or ?racing? of your heart ? Feeling dizzy or woozy ? Feeling short of breath or like you can?t take a deep breath ? Feeling very anxious for no other reason It is very important that these reactions be treated. Tell the doctor or nurse that you are having a reaction to IV contrast dye. Do not ignore any sign of a reaction! All reactions must be assessed by a doctor. Call 911 if you are alone and your reaction is more than mild sneezing or itching. If you have a mild reaction, call to speak with a Radiologist, explain that you havehad a contrast reaction, as this needs to be added to your medical record. documented in this encounter Plan of Treatment Upcoming Encounters Date Type Department Care Team ([facility] st Contact Info) Description 07/30/2025 1:00 PM EDT Appointment [facility] [address] [place] [address] Manoj Fowler MD [address] [facility] [address] [place] [id number] 08/12/2025 1:30 PM EST Clinical Support [facility] Mult[facility]isciplinary Oncology Clinic [address] [place] [address] 08/12/2025 1:40 PM EST Office Visit [facility] Multidisciplinary Oncology Clinic [address] [place] [phone] Joi Stewart MD [address] [facility] [address] [place] [address] 08/14/2025 10:00 AM EST Appointment [facility] [address] [facility] [address] [place] [address] 08/14/2025 11:00 AM EST Office Visit [facility] [address] [facility] [address] [place] [address] Hilary Cordova MD [address] [facility] [address] [place] [id number] documented as of this encounter Goals Goal Patient Goal Type Associated Problems Recent Progress Patient-Stated? Author Autogenerat ed Goal Care Plan Autogenerated Problem Walt Irahetaah Chaz documented as of this encounter Procedures Procedure Name Priority Date/Time Associated Diagnosis Comments CT ABDOMEN PELVIS W IV CONTRAST Routine 04/22/2025 12:20 PM EDT Rectal cancer (CMS/HCC) CT CHEST W IV CONTRAST Routine 04/22/2025 12:20 PM EDT Rectal cancer (CMS/HCC) documented in this encounter Results * CT Chest w IV Contrast (04/22/2025 12:20 PM EDT) Anatomical Region Laterality Modality Chest Computed Tomogra phy Impressions 04/22/2025 3:58 PM EDT Chest: No evidence of metastatic disease in the thorax. Abdomen/Pelvis: No evidence of disease progression . CRITICAL RESULT: No. COMMUNICATION: Per this written report. By electronically signing this report, I, the attending physician, attest that I have personally reviewed the images/data for the above examination(s) and agree with the final edited report. Drafted by Alexys Clark MD on 04/22/2025 2:08 PM Final report signed by Hitesh Lucero MD on 04/22/2025 3:58 PM Narrative 04/22/2025 3:58 PM EDT CLINICAL INDICATION: rectal cancer TECHNIQUE: Multiple axial CT images were obtained from thoracic inlet through pubic symphysis following administration of IV contrast, Omnipaque 300, 100 mL. Reformatted images in the coronal and sagittal planes were generated from the axial data set to facilitate diagnostic accuracy. Total DLP (Dose-Length Product): 640.83 mGy.cm (accession [id number]), 640.83 mGy.cm (accession [id number]). Please note: The reported value represents the total of one or more individual components during the CT acquisition on this date and at this time, and as such, the same value may appear in more than one CT report depending on the interpreting/reporting physicians. COMPARISON: MRI pelvis from February 04, 2025. CT chest from August 06, 2024. FINDINGS: Chest: Lymph Nodes and Mediastinum: No lymphadenopathy by CT size criteria. No mediastinal mass lesions. Heterogeneous appearance of the thyroid with multiple bilateral hypoattenuating nodules with some containing calcifications, grossly unchanged from comparison CT.. Cardiovascular: The heart is normal in caliber. Thoracic great vessels are patent with atherosclerotic changes within the aorta. Coronary artery atherosclerosis. Lungs and Pleura: No suspicious lung nodules to suggest metastatic disease. No pleural effusions or suspicious thickening. Mild emphysematous changes of the lungs. Musculoskeletal and Body Wall: No clearly aggressive bone lesions. Degenerative changes of the spine with bridging syndesmophytes anteriorly along the thoracic spine. Abdomen/Pelvis: Liver, Gallbladder, Biliary Tract: Homogenous enhancement of the liver parenchyma. There is a small area of hypoattenuation measuring 8 mm within hepatic segment IV (series 3, image #81) is too small to characterize but likely represents a hepatic cyst, grossly unchanged from comparison CT. Two other smaller subcentimeter hypodensities are noted within the left and right hemiliver that are too small to characterize. Cholelithiasis without evidence of acute cholecystitis. No intra or extrahepatic biliary ductal dilatation. Spleen: Unremarkable. Pancreas: Normal appearance of the pancreas without suspicious mass or ductal dilatation. Adrenal Glands: Normal appearance of bilateral adrenal glands. Kidneys: Symmetric enhancement of bilateral kidneys. Probable tiny nonobstructing calculus within the inferior pole of the left kidney. Simple appearing renal cyst bilaterally. For example, there is an exophytic simple left renal cyst at the inferior pole measuring 4.3 x 4.7 cm (series 2, image 34). No suspicious renal mass. No evidence of hydronephrosis. Lymph Nodes: No lymphadenopathy by CT size criteria. Vasculature: The aortoiliac vasculature is normal in caliber and patent throughout demonstrating moderate to severe atherosclerotic changes. GI Tract/Mesentery/Peritoneum: The large and small bowel appear normal in caliber. The colon is decompressed, limiting detailed evaluation of the colonic wall. There is stool within the cecum. 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 No suspicious peritoneal/mesenteric findings. Pelvic Viscera: Redemonstration of long-standing thickening of the endometrial stripe. No suspicious pelvic mass lesions. Pelvic floor descent. Free Fluid: No ascites. Musculoskeletal and Body Wall: No clearly aggressive bone lesions. Degenerative changes of the thoracolumbar spine. Procedure Note Hitesh Lucero MD - 04/22/2025 CLINICAL INDICATION: rectal cancer TECHNIQUE: Multiple axial CT images were obtained from thoracic inlet through pubicsymphysis following administration of IV contrast, Omnipaque 300, 100 mL.Reformatted images in the coronal and sagittal planes were generated fromthe axial data set to facilitate diagnostic accuracy. Total DLP (Dose-Length Product): 640.83 mGy.cm (accession [id number]),640.83 mGy.cm (accession [id number]). Please note: The reported valuerepresents the total of one or more individual components during the CTacquisition on this date and at this time, and as such, the same value mayappear in more than one CT report depending on the interpreting/reportingphysicians. COMPARISON: MRI pelvis from February 04, 2025. CT chest from August 06, 2024. FINDINGS: Chest: Lymph Nodes and Mediastinum: No lymphadenopathy by CT size criteria. Nomediastinal mass lesions. Heterogeneous appearance of the thyroid withmultiple bilateral hypoattenuating nodules with some containingcalcifications, grossly unchanged from comparison CT.. Cardiovascular: The heart is normal in caliber. Thoracic great vessels arepatent with atherosclerotic changes within the aorta. Coronary arteryatherosclerosis. Lungs and Pleura: No suspicious lung nodules to suggest metastaticdisease. No pleural effusions or suspicious thickening. Mild emphysematouschanges of the lungs. Musculoskeletal and Body Wall: No clearly aggressive bone lesions.Degenerative changes of the spine with bridging syndesmophytes anteriorlyalong the thoracic spine. Abdomen/Pelvis: Liver, Gallbladder, Biliary Tract: Homogenous enhancement of the liverparenchyma. There is a small area of hypoattenuation measuring 8 mm withinhepatic segment IV (series 3, image #81) is too small to characterize butlikely represents a hepatic cyst, grossly unchanged from comparison CT.Two other smaller subcentimeter hypodensities are noted within the leftand right hemiliver that are too small to characterize. Cholelithiasiswithout evidence of acute cholecystitis. No intra or extrahepatic biliaryductal dilatation. Spleen: Unremarkable. Pancreas: Normal appearance of the pancreas without suspicious mass orductal dilatation. Adrenal Glands: Normal appearance of bilateral adrenal glands. Kidneys: Symmetric enhancement of bilateral kidneys. Probable tinynonobstructing calculus within the inferior pole of the left kidney.Simple appearing renal cyst bilaterally. For example, there is anexophytic simple left renal cyst at the inferior pole measuring 4.3 x 4.7cm (series 2, image 34). No suspicious renal mass. No evidence ofhydronephrosis. Lymph Nodes: No lymphadenopathy by CT size criteria. Vasculature: The aortoiliac vasculature is normal in caliber and patentthroughout demonstrating moderate to severe atherosclerotic changes. GI Tract/Mesentery/Peritoneum: The large and small bowel appear normal incaliber. The colon is decompressed, limiting detailed evaluation of thecolonic wall. There is stool within the cecum. Again noted is adefunctioning ileostomy within the right lower quadrant. No suspiciousperitoneal/mesenteric findings. Pelvic Viscera: Redemonstration of long-standing thickening of theendometrial stripe. No suspicious pelvic mass lesions. Pelvic floordescent. Free Fluid: No ascites. Musculoskeletal and Body Wall: No clearly aggressive bone lesions.Degenerative changes of the thoracolumbar spine. IMPRESSION: Chest: No evidence of metastatic disease in the thorax. Abdomen/Pelvis: No evidence of disease progression . CRITICAL RESULT: No. COMMUNICATION: Per this written report. By electronically signing this report, I, the attending physician, attestthat I have personally reviewed the images/data for the aboveexamination(s) and agree with the final edited report. Drafted by Alexys Clark MD on 04/22/2025 2:08 PM Final report signed by Hitesh Lucero MD on 04/22/2025 3:58 PM us Joi Stewart MD IMG CT PROCEDURES Final Result * CT Abdomen Pelvis w IV Contrast (04/22/2025 12:20 PM EDT) Anatomical Region Laterality Modality Abdomen, Pelvis Computed Tomogra phy Impressions 04/22/2025 3:58 PM EDT Chest: No evidence of metastatic disease in the thorax. Abdomen/Pelvis: No evidence of disease progression . CRITICAL RESULT: No. COMMUNICATION: Per this written report. By electronically signing this report, I, the attending physician, attest that I have personally reviewed the images/data for the above examination(s) and agree with the final edited report. Drafted by Alexys Clakr MD on 04/22/2025 2:08 PM Final report signed by Hitesh Lucero MD on 04/22/2025 3:58 PM Narrative 04/22/2025 3:58 PM EDT CLINICAL INDICATION: rectal cancer TECHNIQUE: Multiple axial CT images were obtained from thoracic inlet through pubic symphysis following administration of IV contrast, Omnipaque 300, 100 mL. Reformatted images in the coronal and sagittal planes were generated from the axial data set to facilitate diagnostic accuracy. Total DLP (Dose-Length Product): 640.83 mGy.cm (accession [id number]), 640.83 mGy.cm (accession [id number]). Please note: The reported value represents the total of one or more individual components during the CT acquisition on this date and at this time, and as such, the same value may appear in more than one CT report depending on the interpreting/reporting physicians. COMPARISON: MRI pelvis from February 04, 2025. CT chest from August 06, 2024. FINDINGS: Chest: Lymph Nodes and Mediastinum: No lymphadenopathy by CT size criteria. No mediastinal mass lesions. Heterogeneous appearance of the thyroid with multiple bilateral hypoattenuating nodules with some containing calcifications, grossly unchanged from comparison CT.. Cardiovascular: The heart is normal in caliber. Thoracic great vessels are patent with atherosclerotic changes within the aorta. Coronary artery atherosclerosis. Lungs and Pleura: No suspicious lung nodules to suggest metastatic disease. No pleural effusions or suspicious thickening. Mild emphysematous changes of the lungs. Musculoskeletal and Body Wall: No clearly aggressive bone lesions. Degenerative changes of the spine with bridging syndesmophytes anteriorly along the thoracic spine. Abdomen/Pelvis: Liver, Gallbladder, Biliary Tract: Homogenous enhancement of the liver parenchyma. There is a small area of hypoattenuation measuring 8 mm within hepatic segment IV (series 3, image #81) is too small to characterize but likely represents a hepatic cyst, grossly unchanged from comparison CT. Two other smaller subcentimeter hypodensities are noted within the left and right hemiliver that are too small to characterize. Cholelithiasis without evidence of acute cholecystitis. No intra or extrahepatic biliary ductal dilatation. Spleen: Unremarkable. Pancreas: Normal appearance of the pancreas without suspicious mass or ductal dilatation. Adrenal Glands: Normal appearance of bilateral adrenal glands. Kidneys: Symmetric enhancement of bilateral kidneys. Probable tiny nonobstructing calculus within the inferior pole of the left kidney. Simple appearing renal cyst bilaterally. For example, there is an exophytic simple left renal cyst at the inferior pole measuring 4.3 x 4.7 cm (series 2, image 34). No suspicious renal mass. No evidence of hydronephrosis. Lymph Nodes: No lymphadenopathy by CT size criteria. Vasculature: The aortoiliac vasculature is normal in caliber and patent throughout demonstrating moderate to severe atherosclerotic changes. GI Tract/Mesentery/Peritoneum: The large and small bowel appear normal in caliber. The colon is decompressed, limiting detailed evaluation of the colonic wall. There is stool within the cecum. 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 No suspicious peritoneal/mesenteric findings. Pelvic Viscera: Redemonstration of long-standing thickening of the endometrial stripe. No suspicious pelvic mass lesions. Pelvic floor descent. Free Fluid: No ascites. Musculoskeletal and Body Wall: No clearly aggressive bone lesions. Degenerative changes of the thoracolumbar spine. Procedure Note Hitesh Lucero MD - 04/22/2025 CLINICAL INDICATION: rectal cancer TECHNIQUE: Multiple axial CT images were obtained from thoracic inlet through pubicsymphysis following administration of IV contrast, Omnipaque 300, 100 mL.Reformatted images in the coronal and sagittal planes were generated fromthe axial data set to facilitate diagnostic accuracy. Total DLP (Dose-Length Product): 640.83 mGy.cm (accession [id number]),640.83 mGy.cm (accession [id number]). Please note: The reported valuerepresents the total of one or more individual components during the CTacquisition on this date and at this time, and as such, the same value mayappear in more than one CT report depending on the interpreting/reportingphysicians. COMPARISON: MRI pelvis from February 04, 2025. CT chest from August 06, 2024. FINDINGS: Chest: Lymph Nodes and Mediastinum: No lymphadenopathy by CT size criteria. Nomediastinal mass lesions. Heterogeneous appearance of the thyroid withmultiple bilateral hypoattenuating nodules with some containingcalcifications, grossly unchanged from comparison CT.. Cardiovascular: The heart is normal in caliber. Thoracic great vessels arepatent with atherosclerotic changes within the aorta. Coronary arteryatherosclerosis. Lungs and Pleura: No suspicious lung nodules to suggest metastaticdisease. No pleural effusions or suspicious thickening. Mild emphysematouschanges of the lungs. Musculoskeletal and Body Wall: No clearly aggressive bone lesions.Degenerative changes of the spine with bridging syndesmophytes anteriorlyalong the thoracic spine. Abdomen/Pelvis: Liver, Gallbladder, Biliary Tract: Homogenous enhancement of the liverparenchyma. There is a small area of hypoattenuation measuring 8 mm withinhepatic segment IV (series 3, image #81) is too small to characterize butlikely represents a hepatic cyst, grossly unchanged from comparison CT.Two other smaller subcentimeter hypodensities are noted within the leftand right hemiliver that are too small to characterize. Cholelithiasiswithout evidence of acute cholecystitis. No intra or extrahepatic biliaryductal dilatation. Spleen: Unremarkable. Pancreas: Normal appearance of the pancreas without suspicious mass orductal dilatation. Adrenal Glands: Normal appearance of bilateral adrenal glands. Kidneys: Symmetric enhancement of bilateral kidneys. Probable tinynonobstructing calculus within the inferior pole of the left kidney.Simple appearing renal cyst bilaterally. For example, there is anexophytic simple left renal cyst at the inferior pole measuring 4.3 x 4.7cm (series 2, image 34). No suspicious renal mass. No evidence ofhydronephrosis. Lymph Nodes: No lymphadenopathy by CT size criteria. Vasculature: The aortoiliac vasculature is normal in caliber and patentthroughout demonstrating moderate to severe atherosclerotic changes. GI Tract/Mesentery/Peritoneum: The large and small bowel appear normal incaliber. The colon is decompressed, limiting detailed evaluation of thecolonic wall. There is stool within the cecum. Again noted is adefunctioning ileostomy within the right lower quadrant. No suspiciousperitoneal/mesenteric findings. Pelvic Viscera: Redemonstration of long-standing thickening of theendometrial stripe. No suspicious pelvic mass lesions. Pelvic floordescent. Free Fluid: No ascites. Musculoskeletal and Body Wall: No clearly aggressive bone lesions.Degenerative changes of the thoracolumbar spine. IMPRESSION: Chest: No evidence of metastatic disease in the thorax. Abdomen/Pelvis: No evidence of disease progression . CRITICAL RESULT: No. COMMUNICATION: Per this written report. By electronically signing this report, I, the attending physician, lia I have personally reviewed the images/data for the aboveexamination(s) and agree with the final edited report. Drafted by Alexys Clark MD on 04/22/2025 2:08 PM Final report signed by Hitesh Lucero MD on 04/22/2025 3:58 PM us Joi Stewart MD IMG CT PROCEDURES Final Result documented in this encounter Visit Diagnoses Diagnosis Rectal cancer (CMS/HCC) Malignant neoplasm of rectum documented in this encounter Administered Medications Inactive Administered Medications - up to 3 most recent administrations Medication Order MAR Action Action Date Dose Rate Site iohexol (OMNIPaque) 300 MG/ML injection 100 mL 100 mL, Intravenous, Once in imaging, 1 dose, Starting on e 04/22/25 at 1134, Until Mon04/22/25 at 1209, Routine, Imaging Protocol Orders Given 04/22/2025 12:09 PM EDT 100 mL iohexol (OMNIPaque) 9 MG/ML oral contrast 500 mL 500 mL, Oral, Once in imaging, 1 dose, Starting on e 04/22/25 at 1134, Until 04/22/25 at 1142, Routine, Imaging Protocol Orders Given 04/22/2025 11:42 AM EDT 500 mL documented in this encounter Additional Health Concerns Active Problems Noted Date Diagnosed Date Autogenerated Problem 03/31/2025 Assessment Noted Time A fall risk assessment has been complete d for the patient 04/22/2025 2:48 PM EDT A Body Mass Index follow-up plan has been documented for the patient 02/13/2025 10:32 PM EDT documented as of this encounter Care Teams Nailer Operator Relationship Specialty Start Date End Date Natalia Wayne, SPIRITUAL COUNSELOR [address] [place] [phone] PCP - General 12/10/24 documented as of this encounter
--- OUTSIDE RECORDS SUMMARY | 2025-04-22 14:50 | XMS_ITS | Encounter Summary ---
Author Organization Healthcare Address [address] [place] [address] Care Team Providers Care Keg Varnisher Name Role Phone Natalia Wayne YVONNE Primary Care Provider [phone] Encounter Details Date Type Department Care Team (Latest Contact Info) Description 04/22/2025 2:50 PM EDT Clinical Support [facility] Multidisciplinary Oncology Clinic [address] [place] [address] Anika Joya, RN Rectal cancer (CMS/HCC) Social [...] any time in the past 12 m [facility], were you homeless or living in a [...] PM EDT Appointment [facility] [address] [place] [address] Manoj Fowler MD [address] [facility] [address] [place] [address] 08/12/2025 1:30 PM EST Clinical Support [facility] Multidisciplinary Oncology Clinic [address] [place] [address] 08/12/2025 1:40 PM EST Office Visit [facility] Multidisciplinary Oncology Clinic [address] [place] [address] Joi Stewart MD [address] [facility] [address] [place] [address] 08/14/2025 10:00 AM EST Appointment [facility] [address] [place] [address] 08/14/2025 11:00 AM EST Office Visit [facility] [address] [place] [address] [address] [place] [address] Hilary Cordova MD [address] [facility] [address] [place] [address] documented as of this encounter Goals Goal [...] Panel, Plasma (04/22/2025 3:09 PM EDT) Pathologist [facility] Glucose, Plasma 120(H) 74 - 99 mg/dL 04/22/2025 4:12 PM EDT [facility] BUN, Plasma 13 8 - 23 mg/dL 04/22/2025 4:12 PM EDT [facility] Creatinine, Plasma 1.33(H) 0.60 - 1.10 mg/dL 04/22/2025 4:12 PM EDT [facility] BUN/Creatinine Ratio 10 04/22/2025 4:12 PM EDT [facility] Sodium, Plasma 139 136 - 145 mmol/L 04/22/2025 4:12 PM EDT [facility] Potassium, Plasma 3.6 3.6 - 4.9 mmol/L 04/22/2025 4:12 PM EDT [facility] Chloride, Plasma 105 97 - 107 mmol/L 04/22/2025 4:12 PM EDT [facility] CO2, Plasma 23 22 - 29 mmol/L 04/22/2025 4:12 PM EDT [facility] Anion Gap 11 6 - 16 mmol/L 04/22/2025 4:12 PM EDT [facility] Total Calcium, Plasma 9.3 8.9 - 10.2 mg/dL 04/22/2025 4:12 PM EDT [facility] Total Protein 6.3 6.3 - 7.9 g/dL 04/22/2025 4:12 PM EDT [facility] Albumin, Plasma 3.6 3.5 - 5.2 g/dL 04/22/2025 4:12 PM EDT [facility] AST, Plasma 34 10 - 35 U/L 04/22/2025 4:12 PM EDT [facility] Comment:Hemolyzed, result ma y be falsely increased. ALT, Plasma 44(H) 10 - 35 U/L 04/22/2025 4:12 PM EDT [facility] Alkaline Phosphatase, Plasma 82 46 - 142 U/L 04/22/2025 4:12 PM EDT [facility] Total Bilirubin, Plasma 0.3 0.2 - 1.1 mg/dL 04/22/2025 4:12 PM EDT [facility] eGFRcr 41.8 mL/min/1.7 3m*2 04/22/2025 4:12 PM EDT [facility] Comment:Reported eGFRcr in m L/min/1.73m2 is based the CKD-EPI 2020 equation that does not use a race coefficient. Blood Blood sample taken from central line / Unknown (Port) Long-term Catheter / Unknown 04/22/2025 3:09 PM EDT 04/22/2025 3:39 PM EDT us Joi Stewart MD LAB BLOOD ORDERABLES Final Res ult [facility] [address] [place] [address] * CEA, Serum (04/22/2025 3:09 PM EDT) CEA, Serum 1.9 <4.0 ng/mL 04/22/2025 5:10 PM EDT [facility] Blood Blood sample taken from central line / Unknown (Port) Long-term Catheter / Unknown 04/22/2025 3:09 PM EDT 04/22/2025 3:38 PM EDT Narrative [facility] - 04/22/2025 5:10 PM EDT Normal range for smokers: < 5.5 ng/ml Normal range for non-smokers: <=4.0 ng/ml Performed by Karin electrochemiluminescent immunoassay. Results obtained with different test methods or kits cannot be used interchangeably. us Joi Stewart MD LAB BLOOD ORDERABLES Final Res ult [facility] [address] [place] [address] * (ABNORMAL) CBC and Differential (04/22/2025 3:09 PM EDT) WBC Count 6.48 3.70 - 10.30 10*3/uL LAB HEMATOLOGY METHOD 04/22/2025 4:01 PM EDT [facility] RBC Count 3.45(L) 3.90 - 5.20 10*6/uL LAB HEMATOLOGY METHOD 04/22/2025 4:01 PM EDT [facility] HGB 11.7 11.2 - 15.7 g/dL LAB HEMATOLOGY METHOD 04/22/2025 4:01 PM EDT [facility] HCT 34.1 34.0 - 45.0 % LAB HEMATOLOGY METHOD 04/22/2025 4:01 PM EDT [facility] Platelet Count 170 155 - 369 10*3/uL LAB HEMATOLOGY METHOD 04/22/2025 4:01 PM EDT [facility] MCV 99(H) 79 - 98 fL LAB HEMATOLOGY METHOD 04/22/2025 4:01 PM EDT [facility] MCH 33.9(H) 26.0 - 32.0 pg LAB HEMATOLOGY METHOD 04/22/2025 4:01 PM EDT [facility] MCHC 34.3 30.7 - 35.5 g/dL LAB HEMATOLOGY METHOD 04/22/2025 4:01 PM EDT [facility] RDW 15.7(H) 11.5 - 14.5 % LAB HEMATOLOGY METHOD 04/22/2025 4:01 PM EDT [facility] MPV 9.8 8.8 - 12.5 fL LAB HEMATOLOGY METHOD 04/22/2025 4:01 PM EDT [facility] nRBC 0.0 <=0.0 per 100 WBCs LAB HEMATOLOGY METHOD 04/22/2025 4:01 PM EDT [facility] Differential Type Automated LAB HEMATOLOGY METHOD 04/22/2025 4:01 PM EDT [facility] Neutrophils % 67 % LAB HEMATOLOGY METHOD 04/22/2025 4:01 PM EDT [facility] Lymphocytes % 18 % LAB HEMATOLOGY METHOD 04/22/2025 4:01 PM EDT [facility] Monocytes % 11 % LAB HEMATOLOGY METHOD 04/22/2025 4:01 PM EDT [facility] Eosinophils % 3 % LAB HEMATOLOGY METHOD 04/22/2025 4:01 PM EDT [facility] Basophils % 1 % LAB HEMATOLOGY METHOD 04/22/2025 4:01 PM EDT [facility] Immature Granulocytes % 0 % LAB HEMATOLOGY METHOD 04/22/2025 4:01 PM EDT [facility] Neutrophils Absolute 4.45 1.60 - 6.10 10*3/uL LAB HEMATOLOGY METHOD 04/22/2025 4:01 PM EDT [facility] Lymphocytes Absolute 1.14(L) 1.20 - 3.90 10*3/uL LAB HEMATOLOGY METHOD 04/22/2025 4:01 PM EDT [facility] Monocytes Absolute 0.68 0.30 - 0.90 10*3/uL LAB HEMATOLOGY METHOD 04/22/2025 4:01 PM EDT [facility] Eosinophils Absolute 0.16 0.00 - 0.50 10*3/uL LAB HEMATOLOGY METHOD 04/22/2025 4:01 PM EDT [facility] Basophils Absolute 0.03 0.00 - 0.10 10*3/uL LAB HEMATOLOGY METHOD 04/22/2025 4:01 PM EDT [facility] Immature Granulocytes Absolute 0.02 0.00 - 0.06 10*3/uL LAB HEMATOLOGY METHOD 04/22/2025 4:01 PM EDT [facility] Blood Blood sample taken from central line / Unknown (Port) Long-term Catheter / Unknown 04/22/2025 3:09 PM EDT 04/22/2025 3:47 PM EDT Narrative [facility] - 04/22/2025 4:01 PM EDT Therapeutic decision making should be based on absolute values, rather than percentages. us Joi Stewart MD LAB BLOOD ORDERABLES Final Res ult [facility] [address] [place] [address] documented in this encounter Visit Diagnoses Diagnosis [...] documented as of this encounter Care Teams Keg Varnisher Relationship Specialty Start Date End Date Natalia Wayne APRN [address] [place] [address] PCP - General 12/10/24 documented as of this encounter
--- OUTSIDE RECORDS SUMMARY | 2025-04-22 15:00 | XMS_ITS | Encounter Summary ---
Author Organization Healthcare Address [address] [place] [address] Care Team Providers Care Field Worker Name Role Phone Natalia Wayne COMMERCIAL ACCOUNT MANAGER Primary Care Provider [phone] Reason for Visit * Reason Comments Follow-up Rectal cancer Encounter Details Date Type Department Care Team ([facility] st Contact Info) Description 04/22/2025 3:00 PM EDT Office Visit [facility] Multidisciplinary Oncology Clinic [address] [place] [address] Joi Stewart MD [facility] [address] [place] [address] Rectal cancer (CMS/HCC) (Primary Dx) [...] time in the past 12 m [facility], were you homeless or living in a penitentiary (including now)? No 09/02/2024 Utilities Answer Date [...] refused to cover infusion 5FU) 10/21/24-10/24/24: hospitalized [place] with marked dehydration from severe diarrhea due [...] course XRT). Pt will receive XRT at [place] but 5FU civi through due to insurance restrictions (insurance would not approve 5FU civi to be given at [place], but we were able to get coverage for 5FU civi at ). After completion of chemoXRT, would need 4 months FOLFOX to complete total neoadjuvant therapy for clinical stage III rectal cancer prior to surgical resection--depending on tolerance. 12/25/24: first XRT in [place] 12/24/24: start concurrent 5FU infusion with XRT (5FU civi 225mg/m2 iv over 24 hrs daily on days 1-7for 5 weeks concurrent with XRT--long course XRT). Pt will receive XRT at [place] but 5FU civi through due to insurance restrictions (insurance would not approve 5FU civi to be given at [place], but we were able to get coverage [...] --currently getting FOLFOX with Dr. Yip in [place], tolerating well Follow up - Pending CT CAP from today - To complete FOLFOX with Dr. Yip in [place] - We will follow up after she finished, attempt same day with Dr. Fowler 07/30 - 07/30/25: flex sig sched with Dr. Manoj Fowler Patient and family encouraged to call if any problems or concerns prior to next visit. Radiation oncologist Shayy Ovalle. Dr. Mariia Marks phone [phone] >30 minutes was spent on this encounter; including preparing to see the patient, which involved review/interpretation of diagnostics and reports; obtaining and/or reviewing separately obtained history; performing appropriate physical exam; ordering/scheduling medications, tests or procedures; communicating findings and counseling/educating the patient, family and/or caregiver; documentation inEMR; and care coordination. Joi Stewart MD Division of Medical Oncology [facility] Oncology History: Oncology History Overview Note [...] refused to cover infusion 5FU) 10/21/24-10/24/24: hospitalized [place] with marked dehydration from severe diarrhea due [...] course XRT). Pt will receive XRT at [place] but 5FU civi through due to insurance restrictions (insurance would not approve 5FU civi to be given at [place], but we were able to get coverage [...] sched with Dr. Manoj Fowler Rectal cancer ([facility]/HCC) 08/06/2024 Cancer Staged Staging form: Colon and Rectum, AJCC 8th Edition, Clinical stage from 08/06/2024: Stage IIIB (cT3, cN1, cM0) - Signed by Manoj Fowler MD on 08/13/2024 08/13/2024 Initial Diagnosis Rectal cancer ([facility]) 12/16/2024 - 12/16/2024 [...] Continue neoadjuvant FOLFOX with Dr. Yip in [place]. Will see her back here in August 2025 after flex sig with Dr. Fowler. documented in this encounter Plan of Treatment Upcoming Encounters Date Type Department Care Team (Late st Contact Info) Description 07/30/2025 1:00 PM EDT Appointment [facility] [address] [place] [phone] Manoj Fowler MD [address] [place] [address] 08/12/2025 1:30 PM EST Clinical Support [facility] [address] [place] [address] 08/12/2025 1:40 PM EST Office Visit [facility] Multidisciplinary Oncology Clinic [address] [place] [address] Joi Stewart MD [facility] [address] [place] [address] 08/14/2025 10:00 AM EST Appointment [facility] Vascular Lab [address] [place] [address] 08/14/2025 11:00 AM EST Office Visit [facility] Comprehensive Vascular Clinic [address] [place] [address] [address] [place] [address] Hilary Cordova MD [address] [place] [address] Scheduled Orders Name Type Priority [...] documented as of this encounter Care Teams Field Worker Relationship Specialty Start Date End Date Natalia Wayne, YVONNE [address] [place] [address] PCP - General 12/10/24 documented as of this encounter
[2025-05-09] MEDS: SODIUM CHLORIDE 0.9% 10ML FLUSH SYRINGE 10 ML IV (12:34)
--- OUTSIDE RECORDS SUMMARY | 2025-05-09 12:34 | XMS_ITS | Clinical Summary ---
Author Organization [facility] Address [address] [place] [address] Care Team Providers Care Ore Digger Name Role Phone Natalia Wayne YVONNE Primary Care Provider [phone] Allergies No known active allergies Medications rosuvastatin [...] EDT Office Visit [facility] [address] [place] [address] Joi Stewart MD Rectal cancer (CMS/HCC) (Primary Dx) 04/22/2025 2:50 PM EDT Clinical Support [facility] Multidisciplinary Oncology Clinic [address] [place] [address] Anika Joya, RN Rectal cancer (CMS/HCC) 04/22/2025 11:26 AM EDT - 04/22/2025 11:59 PM EDT Hospital Encounter [facility] [address] [place] [address] Rectal cancer (CMS/HCC) Discharge Disposition: Home or Self Care 04/22/2025 Travel 03/31/2025 Telephone [facility] [address] [place] [address] Manoj Fowler MD 03/31/2025 Telephone [facility] [address] [place] [address] Manoj Fowler MD Flexible Sigmoidoscopy 02/13/2025 Orders Only [facility] [address] [place] [address] Cecilia Walters, RN Rectal cancer (CMS/HCC) (Primary Dx) from Last [...] time in the past 12 m [facility], were you homeless or living in [...] PM EDT Appointment [facility] [address] [place] [address] Manoj Fowler MD [address] [place] [address] 08/12/2025 1:30 PM EST Clinical Support [facility] Multidisciplinary Oncology Clinic [address] [place] [address] 08/12/2025 1:40 PM EST Office Visit [facility] Multidisciplinary Oncology Clinic [address] [place] [address] Joi Stewart MD 800 [facility] Tete Baker [facility] [address] [place] [phone] 08/14/2025 10:00 AM EST Appointment [facility] [address] 5[address] [place] [address] 08/14/2025 11:00 AM EST Office Visit [facility] [address] 5th [address] [place] [address] Hilary Cordova MD [address] [facility] [address] [place] [address] Health Maintenance Due Date Last Done Comments [facility]-Bone Density Scan 1950 [facility]-Medicare Annual Wellness (AWV) 1949 [facility]-/Child/Adol SDOH Screenings 1950 [facility]-DTaP,Tdap,and Td Vaccine s (1 - Tdap) 1968 [facility]-Pneumococcal Vaccine: 50 + Years (1 of 2 - PCV) 1968 [facility]-Zoster Vaccines (1 of 2) 1968 CT Colonography 1994 FIT-DNA 1994 FIT 1994 FOBT 1994 Sigmoidoscopy 1994 [id number] Vaccine (2 - Cady risk series) 01/07/2021 [...] 04/22/2025 12:20 PM EDT Rectal cancer (CMS/HCC) HEPATITIS C ANTIBODY - ED W/REFLEX TO HCV QUANT PCR STAT 08/31/2024 5:22 PM EST COLONOSCOPY Routine 07/22/2024 9:29 AM EDT Colonic mass from Last 3 Months or Most Recently Relevant to Health Maintenance Results * (ABNORMAL) CBC and Differential (04/22/2025 3:09 PM EDT) WBC Count 6.48 3.70 - 10.30 10*3/uL LAB HEMATOLOGY METHOD 04/22/2025 4:01 PM EDT [facility] RBC Count 3.45(L) 3.90 - 5.20 10*6/uL LAB HEMATOLOGY METHOD 04/22/2025 4:01 PM EDT [facility] HGB 11.7 11.2 - 15.7 g/dL LAB HEMATOLOGY METHOD 04/22/2025 4:01 PM EDT [facility] HCT 34.1 34.0 - 45.0 % LAB HEMATOLOGY METHOD 04/22/2025 4:01 PM EDT [facility] Platelet Count 170 155 - 369 10*3/uL LAB HEMATOLOGY METHOD 04/22/2025 4:01 PM EDT [facility] MCV 99(H) 79 - 98 fL LAB HEMATOLOGY METHOD 04/22/2025 4:01 PM EDT [facility] MCH 33.9(H) 26.0 - 32.0 pg LAB HEMATOLOGY METHOD 04/22/2025 4:01 PM EDT [facility] MCHC 34.3 30.7 - 35.5 g/dL LAB HEMATOLOGY METHOD 04/22/2025 4:01 PM EDT [facility] RDW 15.7(H) 11.5 - 14.5 % LAB HEMATOLOGY METHOD 04/22/2025 4:01 PM EDT [facility] MPV 9.8 8.8 - 12.5 fL LAB HEMATOLOGY METHOD 04/22/2025 4:01 PM EDT [facility] nRBC 0.0 <=0.0 per 100 WBCs LAB HEMATOLOGY METHOD 04/22/2025 4:01 PM EDT [facility] Differential Type Automated LAB HEMATOLOGY METHOD 04/22/2025 4:01 PM EDT [facility] Neutrophils % 67 % LAB HEMATOLOGY METHOD 04/22/2025 4:01 PM EDT [facility] Lymphocytes % 18 % LAB HEMATOLOGY METHOD 04/22/2025 4:01 PM EDT [facility] Monocytes % 11 % LAB HEMATOLOGY METHOD 04/22/2025 4:01 PM EDT [facility] Eosinophils % 3 % LAB HEMATOLOGY METHOD 04/22/2025 4:01 PM EDT [facility] Basophils % 1 % LAB HEMATOLOGY METHOD 04/22/2025 4:01 PM EDT [facility] Immature Granulocytes % 0 % LAB HEMATOLOGY METHOD 04/22/2025 4:01 PM EDT [facility] Neutrophils Absolute 4.45 1.60 - 6.10 10*3/uL LAB HEMATOLOGY METHOD 04/22/2025 4:01 PM EDT [facility] Lymphocytes Absolute 1.14(L) 1.20 - 3.90 10*3/uL LAB HEMATOLOGY METHOD 04/22/2025 4:01 PM EDT [facility] Monocytes Absolute 0.68 0.30 - 0.90 10*3/uL LAB HEMATOLOGY METHOD 04/22/2025 4:01 PM EDT [facility] Eosinophils Absolute 0.16 0.00 - 0.50 10*3/uL LAB HEMATOLOGY METHOD 04/22/2025 4:01 PM EDT [facility] Basophils Absolute 0.03 0.00 - 0.10 10*3/uL LAB HEMATOLOGY METHOD 04/22/2025 4:01 PM EDT [facility] Immature Granulocytes Absolute 0.02 0.00 - 0.06 10*3/uL LAB HEMATOLOGY METHOD 04/22/2025 4:01 PM EDT [facility] Blood Blood sample taken from central line / Unknown (Port) Long-term Catheter / Unknown 04/22/2025 3:09 PM EDT 04/22/2025 3:47 PM EDT Narrative [facility] - 04/22/2025 4:01 PM EDT Therapeutic decision making should be based on absolute values, rather than percentages. us Joi Stewart MD LAB BLOOD ORDERABLES Final Res ult [facility] [address] [place] [address] * CEA, Serum (04/22/2025 3:09 PM EDT) CEA, Serum 1.9 <4.0 ng/mL 04/22/2025 5:10 PM EDT [facility] Blood Blood sample taken from central line / Unknown (Port) Long-term Catheter / Unknown 04/22/2025 3:09 PM EDT 04/22/2025 3:38 PM EDT Narrative [facility] - 04/22/2025 5:10 PM EDT Normal range for smokers: < 5.5 ng/ml Normal range for non-smokers: <=4.0 ng/ml Performed by Karin electrochemiluminescent immunoassay. Results obtained with different test methods or kits cannot be used interchangeably. us Joi Stewart MD LAB BLOOD ORDERABLES Final Res ult [facility] [address] [place] [address] * (ABNORMAL) Comprehensive Metabolic Panel, Plasma (04/22/2025 3:09 PM EDT) Glucose, Plasma 120(H) 74 - 99 mg/dL 04/22/2025 4:12 PM EDT [facility] BUN, Plasma 13 8 - 23 mg/dL 04/22/2025 4:12 PM EDT [facility] Creatinine, Plasma 1.33(H) 0.60 - 1.10 mg/dL 04/22/2025 4:12 PM EDT [facility] BUN/Creatinine Ratio 10 04/22/2025 4:12 PM EDT [facility] Sodium, Plasma 139 136 - 145 mmol/L 04/22/2025 4:12 PM EDT [facility] Potassium, Plasma 3.6 3.6 - 4.9 mmol/L 04/22/2025 4:12 PM EDT [facility] Chloride, Plasma 105 97 - 107 mmol/L 04/22/2025 4:12 PM EDT [facility] CO2, Plasma 23 22 - 29 mmol/L 04/22/2025 4:12 PM EDT [facility] Anion Gap 11 6 - 16 mmol/L 04/22/2025 4:12 PM EDT [facility] Total Calcium, Plasma 9.3 8.9 - 10.2 mg/dL 04/22/2025 4:12 PM EDT [facility] Total Protein 6.3 6.3 - 7.9 g/dL 04/22/2025 4:12 PM EDT [facility] Albumin, Plasma 3.6 3.5 - 5.2 g/dL 04/22/2025 4:12 PM EDT [facility] AST, Plasma 34 10 - 35 U/L 04/22/2025 4:12 PM EDT [facility] Comment:Hemolyzed, result ma y be falsely increased. ALT, Plasma 44(H) 10 - 35 U/L 04/22/2025 4:12 PM EDT [facility] Alkaline Phosphatase, Plasma 82 46 - 142 U/L 04/22/2025 4:12 PM EDT [facility] Total Bilirubin, Plasma 0.3 0.2 - 1.1 mg/dL 04/22/2025 4:12 PM EDT [facility] eGFRcr 41.8 mL/min/1.7 3m*2 04/22/2025 4:12 PM EDT [facility] Comment:Reported eGFRcr in m L/min/1.73m2 is based the CKD-EPI 2020 equation that does not use a race coefficient. Blood Blood sample taken from central line / Unknown (Port) Long-term Catheter / Unknown 04/22/2025 3:09 PM EDT 04/22/2025 3:39 PM EDT us Joi Stewart MD LAB BLOOD ORDERABLES Final Res ult [facility] [address] [place] [address] * CT Abdomen Pelvis w IV Contrast [...] Total DLP (Dose-Length Product): 640.83 mGy.cm (accession [id number]), 640.83 mGy.cm (accession [id number]). Please note: The reported value represents the [...] Total DLP (Dose-Length Product): 640.83 mGy.cm (accession [id number]),640.83 mGy.cm (accession [id number]). Please note: The reported valuerepresents the total [...] Total DLP (Dose-Length Product): 640.83 mGy.cm (accession [id number]), 640.83 mGy.cm (accession [id number]). Please note: The reported value represents the [...] Total DLP (Dose-Length Product): 640.83 mGy.cm (accession [id number]),640.83 mGy.cm (accession [id number]). Please note: The reported valuerepresents the total [...] MD IMG CT PROCEDURES Final Result * Hepatitis C Antibody - ED (08/31/2024 5:22 PM EST) Hepatitis C Antibody Negative Negative 08/31/2024 6:21 PM EST [facility] Blood Venous blood specimen / Unknown Venipuncture / Unknown 08/31/2024 5:22 PM EST 08/31/2024 5:40 PM EST Meño Cano MD LAB BLOOD ORDERABLES Final Re sult [facility] [address] [place] [address] * Colonoscopy (07/22/2024 9:29 AM EDT) Anatomical [...] medications. Staff Staff Role Robert Bueno Endo Mac Developer Shruti Gutierrez CRNA CRNA Gantt, Randolph Endo Mac Developer Richard Borja MD Proceduralist Marcelina Arana Endo [...] of bowel preparation was evaluated using the [place] Bowel Preparation Scale with scores of: right [...] 03/31/2025 Insurance [employer] [place] [id number] MEDICARE Advance Directives * Full Code (Latest Code Status on File) Date Activated Date Inactivated Comments 09/02/2024 9:48 PM 09/05/2024 12:25 PM Question Answer Comments Patient has decision-making capacity? Yes * Full Code Date Activated Date Inactivated Comments 08/31/2024 7:20 PM 09/02/2024 9:48 PM Question Answer Comments Patient has decision-making capacity? Yes Care Teams Ore Digger Relationship Specialty Start Date End Date Natalia Wayne APRN [address] [place] [address] PCP - General 12/10/24
--- OUTSIDE RECORDS SUMMARY | 2025-05-09 12:34 | XMS_ITS | Encounter Summary ---
Author Organization Healthcare Address [address] [place] [address] Care Team Providers Care Regional Agronomist Name Role Phone Natalia Wayne YVONNE Primary Care Provider Encounter Details Date Type Department Care Team (Late st Contact Info) Description 03/31/2025 Telephone [facility] [address] [place] [address] Manoj Fowler MD [address] [place] [address] Social History Tobacco Use Types [...] any time in the past 12 m [facility], were you homeless or [...] PM EDT Appointment [facility] [address] [place] [address] Manoj Fowler MD [facility] [id number] [place] [address] 08/12/2025 1:30 PM EST Clinical Support [facility] Multidisciplinary Oncology Clinic [address] [place] [address] 08/12/2025 1:40 PM EST Office Visit [facility] Mult[facility]isciplinary Oncology Clinic [address] [place] [address] Joi Stewart MD 800 [facility] [address] [place] [address] 08/14/2025 10:00 AM EST Appointment [facility] [address] [place] [address] [address] [place] [address] 08/14/2025 11:00 AM EST Office Visit [facility] [address] [place] [address] [address] [place] [address] Hilary Cordova MD [address] [facility] [address] [place] [address] documented as of this encounter Goals Goal [...] documented as of this encounter Care Teams Regional Agronomist Relationship Specialty Start Date End Date Natalia Wayne, YVONNE [address] [place] [id number] PCP - General 12/10/24 documented as of this encounter
--- OUTSIDE RECORDS SUMMARY | 2025-05-09 12:34 | XMS_ITS ---
Author Organization [facility] Address [address] [place] [address] Care Team Providers Care Mint Machine Operator Name Role Phone Natalia Wayne APRN Primary Care Provider [phone] Active Problems Problem Noted Date Diagnosed Date [...] (Adrucil) infusion - for home use ([facility] supplied) CADD 100ML Therapy Complete Joi Stewart MD 1 of 1 cycle started MitoMYcin + Fluorouracil Every 28 Days x 2 + XRT 12/17/19 25 12/13/2024 5-FU CHEMO INFUSION ([facility] SUPPLIED) CADD ORDERABLEmitoMYcin (Mutamycin) Other (See Comments) Joi Stewart MD Treatment not started Resolved Problems Problem Noted Date Diagnosed Date Resolved Date Large bowel obstruction 08/31/2024 120 01/2024
--- OUTSIDE RECORDS SUMMARY | 2025-05-09 12:34 | XMS_ITS | Encounter Summary ---
Author Organization [facility] Address [address] [place] [address] Care Team Providers Care Rn Telemetry Name Role Phone Natalia Wayne YVONNE Primary Care Provider [phone] Encounter Details Date Type Department Care Team [...] time in the past 12 m [facility], were you homeless or living in [...] PM EDT Appointment [facility] [address] [place] [address] Manoj Fowler MD [address] [facility] [address] [place] [address] 08/12/2025 1:30 PM EST Clinical Support [facility] Multidisciplinary Oncology Clinic [address] [place] [address] 08/12/2025 1:40 PM EST Office Visit [facility] Multidisciplinary Oncology Clinic [address] [place] [address] Joi Stewart MD 800 [facility] Tete Baker [facility] [address] [place] [address] 08/14/2025 10:00 AM EST Appointment [facility] [address] [place] [address] 08/14/2025 11:00 AM EST Office Visit [facility] [address] [place] [address] [address] [place] [address] Hilary Cordova MD [address] [facility] [address] [place] [address] documented as of this encounter [...] documented as of this encounter Care Teams Rn Telemetry Relationship Specialty Start Date End Date Natalia Wayne, YVONNE [address] [place] [address] PCP - General 12/10/24 documented as of this encounter
--- OUTSIDE RECORDS SUMMARY | 2025-05-09 12:34 | XMS_ITS | Clinical Summary ---
[facility] Organization [facility] Address [address] [place] [address] Care Team Providers Care Motorized Squad Lieutenant Name Role Phone Unavailable Primary Care Provider [...]
--- OUTSIDE RECORDS SUMMARY | 2025-05-09 12:35 | XMS_ITS | Encounter Summary ---
Author Organization Healthcare Address [address] [place] [address] Care Team Providers Care Motorcycle Subassembler Name Role Phone Pcp, No Primary Care Provider Natalia Hector APRN Primary Care Provider [phone] Encounter Details Date Type Department Care Team (Late st Contact Info) Description 11/14/2024 Orders Only External Location [address] [place] [address] Provider, External Social History Tobacco Use Types [...] PM EDT Appointment [facility] [address] [place] [address] Manoj Fowler MD [address] [facility] [address] [place] [address] 08/12/2025 1:30 PM EST Clinical Support [facility] Multidisciplinary Oncology Clinic [address] [place] [address] 08/12/2025 1:40 PM EST Office Visit [facility] Multidisciplinary Oncology Clinic [address] [place] [address] Joi Stewart MD [address] [facility] Tete Baker [facility] [address] [place] [address] 08/14/2025 10:00 AM EST Appointment [facility] [address] [facility] 5th Floor [address] [place] [address] 08/14/2025 11:00 AM EST Office Visit [facility] [address] Floor [address] [place] [address] Hilary Cordova MD [address] [place] [address] documented as of this encounter [...] documented as of this encounter Care Teams Motorcycle Subassembler Relationship Specialty Start Date End Date Pcp, Mady [address] [place] [address] PCP - General Family Medicine 06/11/24 12/09/24 Natalia Wayne, YVONNE [address] [place] [address] PCP - General 12/10/24 documented as of this encounter
--- OUTSIDE RECORDS SUMMARY | 2025-05-09 12:35 | XMS_ITS | Encounter Summary ---
Author Organization Healthcare Address [address] [place] [address] Care Team Providers Care Sterile Instrument Technician Name Role Phone Natalia Wayne YVONNE Primary Care Provider [phone] Reason for Visit * Reason Onset Date Comments Flexible Sigmoidoscopy 03/31/2025 Encounter Details Date Type Department Care Team (Latest Contact Info) Description 03/31/2025 Telephone [facility] [address] [place] [address] Manoj Fowler MD [address] [facility] [address] [place] [address] Flexible Sigmoidoscopy Social History Tobacco [...] any time in the past 12 m [facility], were you homeless or living [...] Anticipates finishing chemo in approx 3-4 mo. Raker Buffing Wheel Radha Gilbert notified for r/s flex sig tentatively for late Jul. Pt will call back to clinic if still completing chemo therapy at that time. Pt verbalized understanding. No further questions or concerns. * Telephone Encounter - Joyce Yoo RN - 03/31/2025 1:17 PM EDT Message received from nurse liaison Javad Olivo that Dr. Yip's office ([facility]) is requesting 04/16 flex sig be rescheduled for later. Notes that pt has only received second infusion and will not complete chemo when flex sig is done. LVM with pt requesting call back to clinic to discuss. documented in this encounter Plan of Treatment Upcoming Encounters Date Type Department Care Team ([facility] st Contact Info) Description 07/30/2025 1:00 PM EDT Appointment [facility] [address] [place] [address] Manoj Fowler MD [address] [address] 08/12/2025 1:30 PM EST Clinical Support [facility] Multidisciplinary Oncology Clinic [address] [place] [address] 08/12/2025 1:40 PM EST Office Visit [facility] Multidisciplinary Oncology Clinic [address] [place] [address] Joi Stewart MD 800 [facility] [address] [place] [address] 08/14/2025 10:00 AM EST Appointment [facility] [address] [place] [address] 08/14/2025 11:00 AM EST Office Visit [facility] [address] [place] [address] Hilary Cordova MD [address] [place] [address] documented as of this encounter Goals Goal [...] documented as of this encounter Care Teams Sterile Instrument Technician Relationship Specialty Start Date End Date Natalia Wayne, YVONNE [address] [place] [address] PCP - General 12/10/24 documented as of this encounter
== END 2025-05-09 12:40 | disposition home or self-care (01) ==
LOC: INF 12:32
PROVIDERS: PCP Nurse Practitioner Family; Visit Provider Internal Medicine Medical Oncology
DX: C20 Malignant neoplasm of rectum (principal)
CPT/HCPCS: J1642

== ENCOUNTER 2025-05-21 09:32 | Outpatient (CLI) | payer MEDICARE, SELFPAY ==
--- OUTSIDE RECORDS SUMMARY | 2025-04-22 11:26 | XMS_ITS | Encounter Summary ---
Author Organization [facility] Address [address] [place] [address] Care Team Providers Care Machine Sweeper Brush Maker Name Role Phone Natalia Wayne YVONNE Primary Care Provider [phone] Reason for Referral * Imaging (Routine) - Closed Specialty Diagnoses / Procedures Referred By Lexii t Referred To Contact Radiology Diagnoses Rectal cancer (CMS/HCC) Procedures CT Chest w IV Contrast Joi Stewart MD [address] [address] Phone: tel: fax: Referral ID Status Reason Start Date Expiration Date Visits Re quested Visits Authorized [id number] Closed 02/13/2025 08/15/2026 1 1 * Imaging (Routine) - Closed Specialty Diagnoses / Procedures Referred By Lexii moody Referred To Contact Radiology Diagnoses Rectal cancer (CMS/HCC) Procedures CT Abdomen Pelvis w IV Contrast Joi Stewart MD [address] [address] Phone: tel: fax: Referral ID Status Reason Start Date Expiration Date Visits Re quested Visits Authorized [id number] Closed 02/13/2025 08/15/2026 1 1 Reason for Visit * Imaging (Routine) - Closed Specialty Diagnoses / Procedures Referred By Lexii moody Referred To Contact Radiology Diagnoses Rectal cancer (CMS/HCC) Procedures CT Chest w IV Contrast Joi Stewart MD 800 [facility] [address] [place] [address] Phone: tel: fax: Referral ID Status Reason Start Date Expiration Date Visits Re quested Visits Authorized [id number] Closed 02/13/2025 08/15/2026 1 1 Encounter Details Date Type Department Care Team (Latest Contact Info) Description 04/22/2025 11:26 AM EDT - 04/22/2025 11:59 PM EDT Hospital Encounter [facility] CT [address] [place] [address] Rectal cancer (CMS/HCC) Discharge Disposition: [...] time in the past 12 m [facility], were you homeless or living in a [...] Upcoming Encounters Date Type Department Care Team ([facility] st Contact Info) Description 07/30/2025 1:00 PM EDT Appointment [facility] [address] [place] [address] Manoj Fowler MD [address] [facility] [address] [place] [address] 08/12/2025 1:30 PM EST Clinical Support [facility] Multidisciplinary Oncology Clinic [address] [place] [address] 08/12/2025 1:40 PM EST Office Visit [facility] Multidisciplinary Oncology Clinic [address] [place] [address] Joi Stewart MD 800 [facility] Tete Baker [facility] [address] [place] [address] 08/14/2025 10:00 AM EST Appointment [facility] Vascular Lab [address] [facility] 5th Floor [address] [place] [address] 08/14/2025 11:00 AM EST Office Visit [facility] Comprehensive Vascular Clinic [address] [facility] 5th Floor [address] [place] [address] Hilary Cordova MD [address] [facility] [address] [place] [address] documented as of this encounter Goals Goal [...] Total DLP (Dose-Length Product): 640.83 mGy.cm (accession [id number]), 640.83 mGy.cm (accession [id number]). Please note: The reported value represents the [...] Total DLP (Dose-Length Product): 640.83 mGy.cm (accession [id number]),640.83 mGy.cm (accession [id number]). Please note: The reported valuerepresents the total [...] Total DLP (Dose-Length Product): 640.83 mGy.cm (accession [id number]), 640.83 mGy.cm (accession [id number]). Please note: The reported value represents the [...] Total DLP (Dose-Length Product): 640.83 mGy.cm (accession [id number]),640.83 mGy.cm (accession [id number]). Please note: The reported valuerepresents the total [...] documented as of this encounter Care Teams Machine Sweeper Brush Maker Relationship Specialty Start Date End Date Natalia Wayne, AWARD MACHINE OPERATOR [address] [place] [phone] PCP - General 12/10/24 documented as of this encounter
--- OUTSIDE RECORDS SUMMARY | 2025-04-22 14:50 | XMS_ITS | Encounter Summary ---
Author Organization Healthcare Address [address] [place] [address] Care Team Providers Care Medical Social Consultant Name Role Phone Natalia Wayne YVONNE Primary Care Provider [phone] Encounter Details Date Type Department Care Team (Latest Contact Info) Description 04/22/2025 2:50 PM EDT Clinical Support [facility] Multidisciplinary Oncology Clinic [address] [place] [address] Anika Joya, RN Rectal cancer (CMS/HCC) Social [...] any time in the past 12 m [facility], were you homeless or [...] PM EDT Appointment [facility] [address] [place] [address] Manoj Fowler MD [address] [facility] [address] [place] [address] 08/12/2025 1:30 PM EST Clinical Support [facility] Multidisciplinary Oncology Clinic [address] [place] [address] 08/12/2025 1:40 PM EST Office Visit [facility] Multidisciplinary Oncology Clinic [address] [place] [address] Joi Stewart MD 800 [facility] [address] [place] [address] 08/14/2025 10:00 AM EST Appointment [facility] Vascular Lab [address] [place] [address] 08/14/2025 11:00 AM EST Office Visit [facility] Comprehensive Vascular Clinic [address] [place] [address] [address] [place] [address] Hilary Cordova MD [address] [facility] [address] [place] [address] documented as of this encounter Goals Goal [...] Panel, Plasma (04/22/2025 3:09 PM EDT) Pathologist [facility] Glucose, Plasma 120(H) 74 - 99 mg/dL 04/22/2025 4:12 PM EDT [facility] BUN, Plasma 13 8 - 23 mg/dL 04/22/2025 4:12 PM EDT [facility] Creatinine, Plasma 1.33(H) 0.60 - 1.10 mg/dL 04/22/2025 4:12 PM EDT [facility] BUN/Creatinine Ratio 10 04/22/2025 4:12 PM EDT [facility] Sodium, Plasma 139 136 - 145 mmol/L 04/22/2025 4:12 PM EDT [facility] Potassium, Plasma 3.6 3.6 - 4.9 mmol/L 04/22/2025 4:12 PM EDT [facility] Chloride, Plasma 105 97 - 107 mmol/L 04/22/2025 4:12 PM EDT [facility] CO2, Plasma 23 22 - 29 mmol/L 04/22/2025 4:12 PM EDT [facility] Anion Gap 11 6 - 16 mmol/L 04/22/2025 4:12 PM EDT [facility] Total Calcium, Plasma 9.3 8.9 - 10.2 mg/dL 04/22/2025 4:12 PM EDT [facility] Total Protein 6.3 6.3 - 7.9 g/dL 04/22/2025 4:12 PM EDT [facility] Albumin, Plasma 3.6 3.5 - 5.2 g/dL 04/22/2025 4:12 PM EDT [facility] AST, Plasma 34 10 - 35 U/L 04/22/2025 4:12 PM EDT [facility] Comment:Hemolyzed, result ma y be falsely increased. ALT, Plasma 44(H) 10 - 35 U/L 04/22/2025 4:12 PM EDT [facility] Alkaline Phosphatase, Plasma 82 46 - 142 U/L 04/22/2025 4:12 PM EDT [facility] Total Bilirubin, Plasma 0.3 0.2 - 1.1 mg/dL 04/22/2025 4:12 PM EDT [facility] eGFRcr 41.8 mL/min/1.7 3m*2 04/22/2025 4:12 PM EDT [facility] Comment:Reported eGFRcr in m L/min/1.73m2 is based the CKD-EPI 2020 equation that does not use a race coefficient. Blood Blood sample taken from central line / Unknown (Port) Long-term Catheter / Unknown 04/22/2025 3:09 PM EDT 04/22/2025 3:39 PM EDT us Joi Stewart MD LAB BLOOD ORDERABLES Final Res ult [facility] [address] [place] [address] * CEA, Serum (04/22/2025 3:09 PM EDT) CEA, Serum 1.9 <4.0 ng/mL 04/22/2025 5:10 PM EDT [facility] Blood Blood sample taken from central line / Unknown (Port) Long-term Catheter / Unknown 04/22/2025 3:09 PM EDT 04/22/2025 3:38 PM EDT Narrative [facility] - 04/22/2025 5:10 PM EDT Normal range for smokers: < 5.5 ng/ml Normal range for non-smokers: <=4.0 ng/ml Performed by [employer] electrochemiluminescent immunoassay. Results obtained with different test methods or kits cannot be used interchangeably. us Joi Stewart MD LAB BLOOD ORDERABLES Final Res ult [facility] [address] [place] [address] * (ABNORMAL) CBC and Differential (04/22/2025 3:09 PM EDT) WBC Count 6.48 3.70 - 10.30 10*3/uL LAB HEMATOLOGY METHOD 04/22/2025 4:01 PM EDT [facility] RBC Count 3.45(L) 3.90 - 5.20 10*6/uL LAB HEMATOLOGY METHOD 04/22/2025 4:01 PM EDT [facility] HGB 11.7 11.2 - 15.7 g/dL LAB HEMATOLOGY METHOD 04/22/2025 4:01 PM EDT [facility] HCT 34.1 34.0 - 45.0 % LAB HEMATOLOGY METHOD 04/22/2025 4:01 PM EDT [facility] Platelet Count 170 155 - 369 10*3/uL LAB HEMATOLOGY METHOD 04/22/2025 4:01 PM EDT [facility] MCV 99(H) 79 - 98 fL LAB HEMATOLOGY METHOD 04/22/2025 4:01 PM EDT [facility] MCH 33.9(H) 26.0 - 32.0 pg LAB HEMATOLOGY METHOD 04/22/2025 4:01 PM EDT [facility] MCHC 34.3 30.7 - 35.5 g/dL LAB HEMATOLOGY METHOD 04/22/2025 4:01 PM EDT [facility] RDW 15.7(H) 11.5 - 14.5 % LAB HEMATOLOGY METHOD 04/22/2025 4:01 PM EDT [facility] MPV 9.8 8.8 - 12.5 fL LAB HEMATOLOGY METHOD 04/22/2025 4:01 PM EDT [facility] nRBC 0.0 <=0.0 per 100 WBCs LAB HEMATOLOGY METHOD 04/22/2025 4:01 PM EDT [facility] Differential Type Automated LAB HEMATOLOGY METHOD 04/22/2025 4:01 PM EDT [facility] Neutrophils % 67 % LAB HEMATOLOGY METHOD 04/22/2025 4:01 PM EDT [facility] Lymphocytes % 18 % LAB HEMATOLOGY METHOD 04/22/2025 4:01 PM EDT [facility] Monocytes % 11 % LAB HEMATOLOGY METHOD 04/22/2025 4:01 PM EDT [facility] Eosinophils % 3 % LAB HEMATOLOGY METHOD 04/22/2025 4:01 PM EDT [facility] Basophils % 1 % LAB HEMATOLOGY METHOD 04/22/2025 4:01 PM EDT [facility] Immature Granulocytes % 0 % LAB HEMATOLOGY METHOD 04/22/2025 4:01 PM EDT [facility] Neutrophils Absolute 4.45 1.60 - 6.10 10*3/uL LAB HEMATOLOGY METHOD 04/22/2025 4:01 PM EDT [facility] Lymphocytes Absolute 1.14(L) 1.20 - 3.90 10*3/uL LAB HEMATOLOGY METHOD 04/22/2025 4:01 PM EDT [facility] Monocytes Absolute 0.68 0.30 - 0.90 10*3/uL LAB HEMATOLOGY METHOD 04/22/2025 4:01 PM EDT [facility] Eosinophils Absolute 0.16 0.00 - 0.50 10*3/uL LAB HEMATOLOGY METHOD 04/22/2025 4:01 PM EDT [facility] Basophils Absolute 0.03 0.00 - 0.10 10*3/uL LAB HEMATOLOGY METHOD 04/22/2025 4:01 PM EDT [facility] Immature Granulocytes Absolute 0.02 0.00 - 0.06 10*3/uL LAB HEMATOLOGY METHOD 04/22/2025 4:01 PM EDT [facility] Blood Blood sample taken from central line / Unknown (Port) Long-term Catheter / Unknown 04/22/2025 3:09 PM EDT 04/22/2025 3:47 PM EDT Narrative [facility] - 04/22/2025 4:01 PM EDT Therapeutic decision making should be based on absolute values, rather than percentages. us Joi Stewart MD LAB BLOOD ORDERABLES Final Res ult [facility] [address] [place] [address] documented in this encounter Visit Diagnoses Diagnosis [...] documented as of this encounter Care Teams Medical Social Consultant Relationship Specialty Start Date End Date Natalia Wayne APRN [address] [place] [address] PCP - General 12/10/24 documented as of this encounter
--- OUTSIDE RECORDS SUMMARY | 2025-04-22 15:00 | XMS_ITS | Encounter Summary ---
Author Organization Healthcare Address [address] [place] [address] Care Team Providers Care Home Care Liaison Name Role Phone Natalia Wayne NUCLEAR CONTROL OPERATOR Primary Care Provider [phone] Reason for Visit * Reason Comments Follow-up Rectal cancer Encounter Details Date Type Department Care Team ([facility] st Contact Info) Description 04/22/2025 3:00 PM EDT Office Visit [facility] Multidisciplinary Oncology Clinic [address] [place] [address] Joi Stewart MD 800 [facility] [address] [place] [address] Rectal cancer (CMS/HCC) (Primary Dx) [...] any time in the past 12 m [facility], were you homeless or [...] 10/01/24: cycle [address] Theodora mEerson (insurance refused to cover infusion 5FU) 10/21/24-10/24/24: hospitalized [place] with marked dehydration from severe diarrhea due [...] course XRT). Pt will receive XRT at [place] but 5FU civi through due to insurance restrictions (insurance would not approve 5FU civi to be given at [place], but we were able to get coverage for 5FU civi at ). After completion of chemoXRT, would need 4 months FOLFOX to complete total neoadjuvant therapy for clinical stage III rectal cancer prior to surgical resection--depending on tolerance. 12/25/24: first XRT in [place] 12/24/24: start concurrent 5FU infusion with XRT (5FU civi 225mg/m2 iv over 24 hrs daily on days 1-7for 5 weeks concurrent with XRT--long course XRT). Pt will receive XRT at [place] but 5FU civi through due to insurance restrictions (insurance would not approve 5FU civi to be given at [place], but we were able to get coverage [...] --currently getting FOLFOX with Dr. Yip in [place], tolerating well Follow up - Pending CT CAP from today - To complete FOLFOX with Dr. Yip in [place] - We will follow up after she finished, attempt same day with Dr. Fowler 07/30 - 07/30/25: flex sig sched with Dr. Manoj Fowler Patient and family encouraged to call if any problems or concerns prior to next visit. Radiation oncologist Shayy Ovalle. Dr. Mariia Marks phone [phone] >30 minutes was spent on this encounter; including preparing to see the patient, which involved review/interpretation of diagnostics and reports; obtaining and/or reviewing separately obtained history; performing appropriate physical exam; ordering/scheduling medications, tests or procedures; communicating findings and counseling/educating the patient, family and/or caregiver; documentation inEMR; and care coordination. Joi Stewart MD [facility]: Oncology History Overview Note Rectal [...] refused to cover infusion 5FU) 10/21/24-10/24/24: hospitalized [place] with marked dehydration from severe diarrhea due [...] course XRT). Pt will receive XRT at [place] but 5FU civi through due to insurance restrictions (insurance would not approve 5FU civi to be given at [place], but we were able to get coverage [...] sched with Dr. Manoj Fowler Rectal cancer ([facility]/HCC) 08/06/2024 Cancer Staged Staging form: Colon and Rectum, AJCC 8th Edition, Clinical stage from 08/06/2024: Stage IIIB (cT3, cN1, cM0) - Signed by Manoj Fowler MD on 08/13/2024 08/13/2024 Initial Diagnosis Rectal cancer ([facility]) 12/16/2024 - 12/16/2024 Chemotherapy mitoMYcin (Mutamycin) injection [...] Continue neoadjuvant FOLFOX with Dr. Yip in [place]. Will see her back here in August 2025 after flex sig with Dr. Fowler. documented in this encounter Plan of Treatment Upcoming Encounters Date Type Department Care Team (Late st Contact Info) Description 07/30/2025 1:00 PM EDT Appointment [facility] [address] [place] [phone] Manoj Fowler MD [id number] [place] [address] 08/12/2025 1:30 PM EST Clinical Support [facility] [address] [place] [address] 08/12/2025 1:40 PM EST Office Visit [facility] Multidisciplinary Oncology Clinic [address] [place] [address] Joi Stewart MD 800 [facility] [address] [place] [address] 08/14/2025 10:00 AM EST Appointment [facility] Vascular Lab [address] [place] [address] 08/14/2025 11:00 AM EST Office Visit [facility] Comprehensive Vascular Clinic [address] [place] [address] [address] [place] [address] Hilary Cordova MD [id number] [place] [address] Scheduled Orders Name Type Priority [...] documented as of this encounter Care Teams Home Care Liaison Relationship Specialty Start Date End Date Natalia Wayne, YVONNE [address] [place] [address] PCP - General 12/10/24 documented as of this encounter
--- OUTSIDE RECORDS SUMMARY | 2025-05-21 09:36 | XMS_ITS | Encounter Summary ---
Author Organization Healthcare Address [address] [place] [address] Care Team Providers Care Spinning Doffer Name Role Phone Natalia Wayne YVONNE Primary Care Provider [phone] Encounter Details Date Type Department Care Team [...] PM EDT Appointment [facility] [address] [place] [address] Manoj Fowler MD [address] [facility] [address] [place] [address] 08/12/2025 1:30 PM EST Clinical Support [facility] Multidisciplinary Oncology Clinic [address] [place] [address] 08/12/2025 1:40 PM EST Office Visit [facility] Multidisciplinary Oncology Clinic [address] [place] [address] Joi Stewart MD 800 [facility] Tete Baker [facility] [address] [place] [address] 08/14/2025 10:00 AM EST Appointment [facility] [address] [place] [address] 08/14/2025 11:00 AM EST Office Visit [facility] [address] [place] [address] [address] [place] [address] Hilary Cordova MD [address] [facility] [address] [place] [address] documented as of this encounter [...] documented as of this encounter Care Teams Spinning Doffer Relationship Specialty Start Date End Date Natalia Wayne, YVONNE [address] [place] [address] PCP - General 12/10/24 documented as of this encounter
--- OUTSIDE RECORDS SUMMARY | 2025-05-21 09:36 | XMS_ITS | Encounter Summary ---
Author Organization Healthcare Address [address] [place] [address] Care Team Providers Care Door Assembler Name Role Phone Natalia Wayne YVONNE Primary Care Provider [phone] Reason for Visit * Reason Onset Date Comments Flexible Sigmoidoscopy 03/31/2025 Encounter Details Date Type Department Care Team (Latest Contact Info) Description 03/31/2025 Telephone [facility] [address] [place] [address] Manoj Fowler MD [address] [facility] [address] [place] [address] Flexible Sigmoidoscopy Social History Tobacco [...] any time in the past 12 m [facility], were you homeless or [...] Anticipates finishing chemo in approx 3-4 mo. Manager Simulation Radha Gilbert notified for r/s flex sig tentatively for late Jul. Pt will call back to clinic if still completing chemo therapy at that time. Pt verbalized understanding. No further questions or concerns. * Telephone Encounter - Joyce Yoo RN - 03/31/2025 1:17 PM EDT Message received from nurse liaison Javad Olivo that Dr. Yip's office ([facility]) is requesting 04/16 flex sig be rescheduled for later. Notes that pt has only received second infusion and will not complete chemo when flex sig is done. LVM with pt requesting call back to clinic to discuss. documented in this encounter Plan of Treatment Upcoming Encounters Date Type Department Care Team ([facility] st Contact Info) Description 07/30/2025 1:00 PM EDT Appointment [facility] [address] [place] [address] Manoj Fowler MD [address] [address] 08/12/2025 1:30 PM EST Clinical Support [facility] Multidisciplinary Oncology Clinic [address] [place] [address] 08/12/2025 1:40 PM EST Office Visit [facility] Multidisciplinary Oncology Clinic [address] [place] [address] Joi Stewart MD 800 [facility] [address] [place] [address] 08/14/2025 10:00 AM EST Appointment [facility] Vascular Lab [address] [place] [address] 08/14/2025 11:00 AM EST Office Visit [facility] Comprehensive Vascular Clinic [address] [place] [address] Hilary Cordova MD [address] [place] [address] documented as of this encounter Goals Goal Patient Goal Type Associated Problems Recent Progress Patient-Stated? Author Autogenerat ed Goal Care Plan Autogenerated Problem Mayd Ofelia Geno Chaz documented as of this [...] documented as of this encounter Care Teams Door Assembler Relationship Specialty Start Date End Date Natalia Wayne, YVONNE [address] [place] [address] PCP - General 12/10/24 documented as of this encounter
--- OUTSIDE RECORDS SUMMARY | 2025-05-21 09:36 | XMS_ITS | Clinical Summary ---
[facility] [address] [place] [address] Care Team Providers Care Milking System Installer Name Role Phone Unavailable Primary Care Provider [...]
--- OUTSIDE RECORDS SUMMARY | 2025-05-21 09:36 | XMS_ITS | Clinical Summary ---
Author Organization [facility] Address [address] [place] [address] Care Team Providers Care Crib Attendant Name Role Phone Natalia Wayne YVONNE Primary Care Provider [phone] Allergies No known active allergies Medications rosuvastatin [...] EDT Office Visit [facility] [address] [place] [address] Joi Stewart MD Rectal cancer (CMS/HCC) (Primary Dx) 04/22/2025 2:50 PM EDT Clinical Support [facility] [address] [place] [address] Anika Joya, RN Rectal cancer (CMS/HCC) 04/22/2025 11:26 AM EDT - 04/22/2025 11:59 PM EDT Hospital Encounter [facility] [address] [place] [address] Rectal cancer (CMS/HCC) Discharge Disposition: Home or Self Care 04/22/2025 Travel 03/31/2025 Telephone [facility] [address] [place] [address] Manoj Fowler MD 03/31/2025 Telephone [facility] [address] [place] [address] Manoj Fowler MD Flexible Sigmoidoscopy from Last 3 Months Family History Medical [...] th e electric, gas, oil, or water [employer] threatened to shut off services in your [...] PM EDT Appointment [facility] [address] [place] [address] Manoj Fowler MD [address] [facility] [address] [place] [address] 08/12/2025 1:30 PM EST Clinical Support [facility] Multidisciplinary Oncology Clinic [address] [place] [address] 08/12/2025 1:40 PM EST Office Visit [facility] Multidisciplinary Oncology Clinic [address] [place] [address] Joi Stewart MD 800 [facility] [address] [place] [address] 08/14/2025 10:00 AM EST Appointment [facility] Vascular Lab [address] [facility] 5th Floor [address] [place] [address] 08/14/2025 11:00 AM EST Office Visit [facility] [address] 5th Floor [address] [place] [address] Hilary Cordova MD [address] [facility] [address] [place] [address] Health Maintenance Due Date Last Done Comments [facility]-Bone Density Scan 1950 [facility]-Medicare Annual Wellness (AWV) 1949 [facility]-/Child/Adol SDOH Screenings 1950 [facility]-DTaP,Tdap,and Td Vaccine s (1 - Tdap) 1968 [facility]-Pneumococcal Vaccine: 50 + Years (1 of 2 - PCV) 1968 [facility]-Zoster Vaccines (1 of 2) 1968 CT Colonography 1994 FIT-DNA 1994 FIT 1994 FOBT 1994 Sigmoidoscopy 1994 BSE-BQICS-08 Vaccine (2 - Cady risk series) 01/07/2021 [...] LAB HEMATOLOGY METHOD 04/22/2025 4:01 PM EDT [facility] RBC Count 3.45(L) 3.90 - 5.20 10*6/uL LAB HEMATOLOGY METHOD 04/22/2025 4:01 PM EDT [facility] HGB 11.7 11.2 - 15.7 g/dL LAB HEMATOLOGY METHOD 04/22/2025 4:01 PM EDT [facility] HCT 34.1 34.0 - 45.0 % LAB HEMATOLOGY METHOD 04/22/2025 4:01 PM EDT [facility] Platelet Count 170 155 - 369 10*3/uL LAB HEMATOLOGY METHOD 04/22/2025 4:01 PM EDT [facility] MCV 99(H) 79 - 98 fL LAB HEMATOLOGY METHOD 04/22/2025 4:01 PM EDT [facility] MCH 33.9(H) 26.0 - 32.0 pg LAB HEMATOLOGY METHOD 04/22/2025 4:01 PM EDT [facility] MCHC 34.3 30.7 - 35.5 g/dL LAB HEMATOLOGY METHOD 04/22/2025 4:01 PM EDT [facility] RDW 15.7(H) 11.5 - 14.5 % LAB HEMATOLOGY METHOD 04/22/2025 4:01 PM EDT [facility] MPV 9.8 8.8 - 12.5 fL LAB HEMATOLOGY METHOD 04/22/2025 4:01 PM EDT [facility] nRBC 0.0 <=0.0 per 100 WBCs LAB HEMATOLOGY METHOD 04/22/2025 4:01 PM EDT [facility] Differential Type Automated LAB HEMATOLOGY METHOD 04/22/2025 4:01 PM EDT [facility] Neutrophils % 67 % LAB HEMATOLOGY METHOD 04/22/2025 4:01 PM EDT [facility] Lymphocytes % 18 % LAB HEMATOLOGY METHOD 04/22/2025 4:01 PM EDT [facility] Monocytes % 11 % LAB HEMATOLOGY METHOD 04/22/2025 4:01 PM EDT [facility] Eosinophils % 3 % LAB HEMATOLOGY METHOD 04/22/2025 4:01 PM EDT [facility] Basophils % 1 % LAB HEMATOLOGY METHOD 04/22/2025 4:01 PM EDT [facility] Immature Granulocytes % 0 % LAB HEMATOLOGY METHOD 04/22/2025 4:01 PM EDT [facility] Neutrophils Absolute 4.45 1.60 - 6.10 10*3/uL LAB HEMATOLOGY METHOD 04/22/2025 4:01 PM EDT [facility] Lymphocytes Absolute 1.14(L) 1.20 - 3.90 10*3/uL LAB HEMATOLOGY METHOD 04/22/2025 4:01 PM EDT [facility] Monocytes Absolute 0.68 0.30 - 0.90 10*3/uL LAB HEMATOLOGY METHOD 04/22/2025 4:01 PM EDT [facility] Eosinophils Absolute 0.16 0.00 - 0.50 10*3/uL LAB HEMATOLOGY METHOD 04/22/2025 4:01 PM EDT [facility] Basophils Absolute 0.03 0.00 - 0.10 10*3/uL LAB HEMATOLOGY METHOD 04/22/2025 4:01 PM EDT [facility] Immature Granulocytes Absolute 0.02 0.00 - 0.06 10*3/uL LAB HEMATOLOGY METHOD 04/22/2025 4:01 PM EDT [facility] Blood Blood sample taken from central line / Unknown (Port) Long-term Catheter / Unknown 04/22/2025 3:09 PM EDT 04/22/2025 3:47 PM EDT Narrative [facility] - 04/22/2025 4:01 PM EDT Therapeutic decision making should be based on absolute values, rather than percentages. us Joi Stewart MD LAB BLOOD ORDERABLES Final Res ult [facility] [address] [place] [address] * CEA, Serum (04/22/2025 3:09 PM EDT) CEA, Serum 1.9 <4.0 ng/mL 04/22/2025 5:10 PM EDT [facility] Blood Blood sample taken from central line / Unknown (Port) Long-term Catheter / Unknown 04/22/2025 3:09 PM EDT 04/22/2025 3:38 PM EDT Narrative [facility] - 04/22/2025 5:10 PM EDT Normal range for smokers: < 5.5 ng/ml Normal range for non-smokers: <=4.0 ng/ml Performed by Karin electrochemiluminescent immunoassay. Results obtained with different test methods or kits cannot be used interchangeably. us Joi Stewart MD LAB BLOOD ORDERABLES Final Res ult [facility] [address] [place] [address] * (ABNORMAL) Comprehensive Metabolic Panel, Plasma (04/22/2025 3:09 PM EDT) Glucose, Plasma 120(H) 74 - 99 mg/dL 04/22/2025 4:12 PM EDT [facility] BUN, Plasma 13 8 - 23 mg/dL 04/22/2025 4:12 PM EDT [facility] Creatinine, Plasma 1.33(H) 0.60 - 1.10 mg/dL 04/22/2025 4:12 PM EDT [facility] BUN/Creatinine Ratio 10 04/22/2025 4:12 PM EDT [facility] Sodium, Plasma 139 136 - 145 mmol/L 04/22/2025 4:12 PM EDT [facility] Potassium, Plasma 3.6 3.6 - 4.9 mmol/L 04/22/2025 4:12 PM EDT [facility] Chloride, Plasma 105 97 - 107 mmol/L 04/22/2025 4:12 PM EDT [facility] CO2, Plasma 23 22 - 29 mmol/L 04/22/2025 4:12 PM EDT [facility] Anion Gap 11 6 - 16 mmol/L 04/22/2025 4:12 PM EDT [facility] Total Calcium, Plasma 9.3 8.9 - 10.2 mg/dL 04/22/2025 4:12 PM EDT [facility] Total Protein 6.3 6.3 - 7.9 g/dL 04/22/2025 4:12 PM EDT [facility] Albumin, Plasma 3.6 3.5 - 5.2 g/dL 04/22/2025 4:12 PM EDT [facility] AST, Plasma 34 10 - 35 U/L 04/22/2025 4:12 PM EDT [facility] Comment:Hemolyzed, result ma y be falsely increased. ALT, Plasma 44(H) 10 - 35 U/L 04/22/2025 4:12 PM EDT [facility] Alkaline Phosphatase, Plasma 82 46 - 142 U/L 04/22/2025 4:12 PM EDT [facility] Total Bilirubin, Plasma 0.3 0.2 - 1.1 mg/dL 04/22/2025 4:12 PM EDT [facility] eGFRcr 41.8 mL/min/1.7 3m*2 04/22/2025 4:12 PM EDT [facility] Comment:Reported eGFRcr in m L/min/1.73m2 is based the CKD-EPI 2020 equation that does not use a race coefficient. Blood Blood sample taken from central line / Unknown (Port) Long-term Catheter / Unknown 04/22/2025 3:09 PM EDT 04/22/2025 3:39 PM EDT us Joi Stewart MD LAB BLOOD ORDERABLES Final Res ult [facility] [address] [place] [address] * CT Abdomen Pelvis w IV Contrast [...] Total DLP (Dose-Length Product): 640.83 mGy.cm (accession [id number]), 640.83 mGy.cm (accession [id number]). Please note: The reported value represents the [...] Total DLP (Dose-Length Product): 640.83 mGy.cm (accession [id number]),640.83 mGy.cm (accession [id number]). Please note: The reported valuerepresents the total [...] Total DLP (Dose-Length Product): 640.83 mGy.cm (accession [id number]), 640.83 mGy.cm (accession [id number]). Please note: The reported value represents the [...] Total DLP (Dose-Length Product): 640.83 mGy.cm (accession [id number]),640.83 mGy.cm (accession [id number]). Please note: The reported valuerepresents the total [...] Antibody Negative Negative 08/31/2024 6:21 PM EST [facility] Blood Venous blood specimen / Unknown Venipuncture / Unknown 08/31/2024 5:22 PM EST 08/31/2024 5:40 PM EST us Meño Cano MD LAB BLOOD ORDERABLES Final Re sult [facility] [address] [place] [address] * Colonoscopy (07/22/2024 9:29 AM EDT) Anatomical [...] medications. Staff Staff Role Robert Bueno Endo Mouthpiece Maker Shruti Gutierrez CRNA CRNA Gantt, Randolph Endo Mouthpiece Maker Richard Borja MD Proceduralist Marcelina Arana Nurse [...] of bowel preparation was evaluated using the Buckner Bowel Preparation Scale with scores of: right [...] Date Diagnosed Date Autogenerated Problem 03/31/2025 [facility] [place] [id number] MEDICARE Member Subscriber Plan / Payer (Ef fective 2015-Present) Name:Lashae Sim Member ID:[id number] Relation to Subscriber:Self Name:Lashae Sim Subscriber ID:[id number] Payer ID:MEDICARE Group ID:Not on file Type:Medicare Address: [place] [phone] Advance Directives * Full Code (Latest Code Status on File) Date Activated Date Inactivated Comments 09/02/2024 9:48 PM 09/05/2024 12:25 PM Question Answer Comments Patient has decision-making capacity? Yes * Full Code Date Activated Date Inactivated Comments 08/31/2024 7:20 PM 09/02/2024 9:48 PM Question Answer Comments Patient has decision-making capacity? Yes Care Teams Crib Attendant Relationship Specialty Start Date End Date Natalia Wayne APRN [address] [place] [address] PCP - General 12/10/24
--- OUTSIDE RECORDS SUMMARY | 2025-05-21 09:36 | XMS_ITS | Encounter Summary ---
Author Organization Healthcare Address [address] [place] [address] Care Team Providers Care Credit Risk Manager Name Role Phone Pcp, No Primary Care Provider Natalia Hector APRN Primary Care Provider [phone] Encounter Details Date Type Department Care Team (Late st Contact Info) Description 11/14/2024 Orders Only External Location [address] [place] [address] Provider, External Social History Tobacco Use Types [...] PM EDT Appointment [facility] [address] [place] [address] Manoj Fowler [facility] [address] [facility] [address] [place] [address] 08/12/2025 1:30 PM EST Clinical Support [facility] Multidisciplinary Oncology Clinic [address] [place] [address] 08/12/2025 1:40 PM EST Office Visit [facility] Multidisciplinary Oncology Clinic [address] [place] [address] Joi Stewart MD 800 [facility] Tete Baker [facility] [address] [place] [address] 08/14/2025 10:00 AM EST Appointment [facility] Vascular Lab [address] [facility] 5th Floor [address] [place] [address] 08/14/2025 11:00 AM EST Office Visit [facility] Comprehensive Vascular Clinic [address] 5[address] [place] [address] Hilary [place] MD [address] [place] [address] documented as of this encounter [...] documented as of this encounter Care Teams Credit Risk Manager Relationship Specialty Start Date End Date Pcp, Mady [address] [place] [address] PCP - General Family Medicine 06/11/24 12/09/24 Natalia Wayne, YVONNE [address] [place] [address] PCP - General 12/10/24 documented as of this encounter
--- OUTSIDE RECORDS SUMMARY | 2025-05-21 09:36 | XMS_ITS ---
Author Organization [facility] Address [address] [place] [address] Care Team Providers Care Extraction Machine Operator Name Role Phone Natalia Wayne APRN Primary Care Provider [phone] Active Problems Problem Noted Date Diagnosed Date [...] 5-FU (Adrucil) infusion - for home use ([facility] supplied) CADD 100ML Therapy Complete Joi Stewart MD 1 of 1 cycle started MitoMYcin + Fluorouracil Every 28 Days x 2 + XRT 12/17/19 25 12/13/2024 5-FU CHEMO INFUSION ([facility] SUPPLIED) CADD ORDERABLEmitoMYcin (Mutamycin) Other (See Comments) Joi Stewart MD Treatment not started Resolved Problems Problem Noted Date Diagnosed Date Resolved Date Large bowel obstruction 08/31/2024 120 01/2024
--- OUTSIDE RECORDS SUMMARY | 2025-05-21 09:36 | XMS_ITS | Encounter Summary ---
Author Organization Healthcare Address [address] [place] [address] Care Team Providers Care Control Officer Manager Name Role Phone Natalia Wayne YVONNE Primary Care Provider [phone] Encounter Details Date Type Department Care Team (Late st Contact Info) Description 03/31/2025 Telephone [facility] [address] [place] [address] Manoj Fowler MD [address] [place] [address] Social History Tobacco Use Types [...] time in the past 12 m [facility], were you homeless or living in a [...] Appointment [facility] [address] [place] [address] Manoj Fowler MD [facility] [id number] [place] [address] 08/12/2025 1:30 PM EST Clinical Support [facility] Multidisciplinary Oncology Clinic [address] [place] [address] 08/12/2025 1:40 PM EST Office Visit [facility] Multidisciplinary Oncology Clinic [address] [place] [address] Joi Stewart MD [address] [facility] [address] [place] [address] 08/14/2025 10:00 AM EST Appointment [facility] Vascular Lab [address] [place] [address] [address] [place] [address] 08/14/2025 11:00 AM EST Office Visit [facility] Comprehensive Vascular Clinic [address] [place] [address] [address] [place] [address] Hilary [place] MD [address] [facility] [address] [place] [address] documented as of this encounter Goals Goal [...] documented as of this encounter Care Teams Control Officer Manager Relationship Specialty Start Date End Date Natalia Wayne, YVONNE [address] [place] [id number] PCP - General 12/10/24 documented as of this encounter
[2025-05-21 09:50] LABS: Hematocrit 34.7 % (37.0-47.0); Hemoglobin 12.0 g/dL (12.2-16.2); Immature Granulocytes % 0.3 %; Mean Corpuscular HGB Conc 34.6 g/dL (31.8-35.4); Mean Corpuscular Hemoglobin 34.5 pg (27.0-31.2); Mean Corpuscular Volume 99.7 fl (81-99); Nucleated Red Blood Cells % 0 %; Platelet Count 148 K/mm3 (142-424); Red Blood Count 3.48 M/mm3 (4.20-5.40); Red Cell Distribution Width-SD 57.9 fL; White Blood Count 3.9 K/mm3 (4.8-10.8)
[2025-05-21 09:58] LABS: Albumin Level 4.0 g/dl (3.5-5.0); Chloride 107 mmol/L (98-107); Potassium 3.4 mmoL/L (3.5-5.1); Sodium 138 mmol/L (136-145)
[2025-05-21 10:00] LABS: Blood Urea Nitrogen 18 mg/dl (7-17); Creatinine,Serum 1.50 mg/dl (0.52-1.04); Estimated Glomerular Filt Rate 34 ml/min (>60); GFR (African American) 41 ML/MIN (>60)
[2025-05-21 10:01] LABS: Alanine Aminotransferase 38 U/L (12-78); Albumin/Globulin Ratio 1.4 (1.1-1.8); Alkaline Phosphatase 87 U/L (38-126); Anion Gap 10.4 mEq/L (5-15); Aspartate Amino Transferase 45 U/L (14-36); Bilirubin,Total 0.7 mg/dl (0.2-1.3); Calcium 9.5 mg/dl (8.4-10.2); Carbon Dioxide 24 mmol/L (22.0-30.0); Globulin 2.8 g/dL (1.3-3.2); Glucose 99 mg/dl (74-100); Total Protein,Serum 6.8 g/dl (6.3-8.2)
[2025-05-21 10:12] VITALS: BP 162/80; PULSE 72; RESP 18; TEMP 36.1; O2SAT 98
[2025-05-21] MEDS: POTASSIUM CHLORIDE 20MEQ TAB 40 MEQ PO (10:12)
[2025-05-21] MEDS: ONDANSETRON 4MG ODT 12 MG SL (10:12)
[2025-05-21] MEDS: DEXAMETHASONE 4MG TABLET 12 MG PO (10:12)
[2025-05-21] MEDS: SODIUM CHLORIDE 0.9% 10ML FLUSH SYRINGE 10 ML IV (10:26)
[2025-05-21] MEDS: DEX 5% IN WATER 100ML IVPB 100 ML IV (10:26)
[2025-05-21 10:54] VITALS: BP 149/64; PULSE 64; RESP 20; O2SAT 98
[2025-05-21] MEDS: WATER IV ×2 (10:54)
[2025-05-21] MEDS: OXALIPLATIN IV (10:54)
[2025-05-21] MEDS: LEUCOVORIN CALCIUM IV (10:54)
[2025-05-21] MEDS: DEXTROSE 5% IV ×2 (10:54)
[2025-05-21 11:24] VITALS: BP 153/64; PULSE 69; RESP 20; O2SAT 97
[2025-05-21 11:54] VITALS: BP 148/68; PULSE 65; RESP 18; O2SAT 98
[2025-05-21 12:24] VITALS: BP 158/68; PULSE 67; RESP 20; O2SAT 97
[2025-05-21 12:54] VITALS: BP 161/67; PULSE 72; RESP 20; O2SAT 98
[2025-05-21] MEDS: FLUOROURACIL IV (12:59)
[2025-05-21] MEDS: FLUOROURACIL 500MG/10ML VIAL 700 MG IV (12:59)
== END 2025-05-21 13:10 | disposition home or self-care (01) ==
LOC: INF 09:33
PROVIDERS: PCP Nurse Practitioner Family; Visit Provider Internal Medicine Medical Oncology
DX: C20 Malignant neoplasm of rectum (principal); Z51.11 Encounter for antineoplastic chemotherapy
CPT/HCPCS: 80053; 85025; 96368; 96411; 96413; 96415; 96416; J0640; J7060; J8540; J9190; J9263; Q0162

== ENCOUNTER 2025-05-23 11:35 | Outpatient (CLI) | payer MEDICARE, SELFPAY ==
--- OUTSIDE RECORDS SUMMARY | 2025-04-22 11:26 | XMS_ITS | Encounter Summary ---
Author Organization [facility] Address [address] [place] [address] Care Team Providers Care Foundation Drill Operator Name Role Phone Natalia Wayne YVONNE Primary Care Provider [phone] Reason for Referral * Imaging (Routine) - Closed Specialty Diagnoses / Procedures Referred By Lexii t Referred To Contact Radiology Diagnoses Rectal cancer (CMS/HCC) Procedures CT Chest w IV Contrast Joi [address] MD [address] [address] Phone: tel: fax: Referral ID Status Reason Start Date Expiration Date Visits Re quested Visits Authorized [id number] Closed 02/13/2025 08/15/2026 1 1 * Imaging (Routine) - Closed Specialty Diagnoses / Procedures Referred By Lexii moody Referred To Contact Radiology Diagnoses Rectal cancer (CMS/HCC) Procedures CT Abdomen Pelvis w IV Contrast Joi [address] MD [address] [address] Phone: tel: fax: Referral ID Status Reason Start Date Expiration Date Visits Re quested Visits Authorized [id number] Closed 02/13/2025 08/15/2026 1 1 Reason for Visit * Imaging (Routine) - Closed Specialty Diagnoses / Procedures Referred By Lexii moody Referred To Contact Radiology Diagnoses Rectal cancer (CMS/HCC) Procedures CT Chest w IV Contrast Joi Stewart MD 800 [facility] [address] [place] [address] Phone: tel: fax: Referral ID Status Reason Start Date Expiration Date Visits Re quested Visits Authorized [id number] Closed 02/13/2025 08/15/2026 1 1 Encounter Details Date Type Department Care Team (Latest Contact Info) Description 04/22/2025 11:26 AM EDT - 04/22/2025 11:59 PM EDT Hospital Encounter [facility] CT [address] [place] [address] Rectal cancer (CMS/HCC) Discharge Disposition: [...] time in the past 12 m [facility], were you homeless or living in a [facility]ci (including now)? No 09/02/2024 Utilities Answer Date [...] Upcoming Encounters Date Type Department Care Team ([facility] st Contact Info) Description 07/30/2025 1:00 PM EDT Appointment [facility] [address] [place] [address] Manoj Fowler MD [address] [facility] [address] [place] [address] 08/12/2025 1:30 PM EST Clinical Support [facility] Multidisciplinary Oncology Clinic [address] [place] [address] 08/12/2025 1:40 PM EST Office Visit [facility] Multidisciplinary Oncology Clinic [address] [place] [address] Joi Stewart MD 800 [facility] Tete Baker [facility] [address] [place] [address] 08/14/2025 10:00 AM EST Appointment [facility] [address] [facility] 5th Floor [address] [place] [address] 08/14/2025 11:00 AM EST Office Visit [facility] [address] [facility] 5th Floor [address] [place] [address] Hilary Cordova MD [address] [facility] [address] [place] [address] documented as of this encounter Goals Goal [...] Total DLP (Dose-Length Product): 640.83 mGy.cm (accession [id number]), 640.83 mGy.cm (accession [id number]). Please note: The reported value represents the [...] Total DLP (Dose-Length Product): 640.83 mGy.cm (accession [id number]),640.83 mGy.cm (accession [id number]). Please note: The reported valuerepresents the total [...] Total DLP (Dose-Length Product): 640.83 mGy.cm (accession [id number]), 640.83 mGy.cm (accession [id number]). Please note: The reported value represents the [...] Total DLP (Dose-Length Product): 640.83 mGy.cm (accession [id number]),640.83 mGy.cm (accession [id number]). Please note: The reported valuerepresents the total [...] documented as of this encounter Care Teams Foundation Drill Operator Relationship Specialty Start Date End Date Natalia Wayne, SHAKER SCREEN OPERATOR [address] [place] [phone] PCP - General 12/10/24 documented as of this encounter
--- OUTSIDE RECORDS SUMMARY | 2025-04-22 14:50 | XMS_ITS | Encounter Summary ---
Author Organization Healthcare Address [address] [place] [address] Care Team Providers Care Port Traffic Manager Name Role Phone Natalia Wayne YVONNE Primary Care Provider [phone] Encounter Details Date Type Department Care Team (Latest Contact Info) Description 04/22/2025 2:50 PM EDT Clinical Support [facility] Multidisciplinary Oncology Clinic [address] [place] [address] Anika Joya, RN Rectal cancer (CMS/HCC) Social [...] any time in the past [address] [facility], were you homeless or living [...] EDT Appointment [facility] [address] [place] [address] Manoj Fowler MD [address] [facility] [address] [place] [address] 08/12/2025 1:30 PM EST Clinical Support [facility] Multidisciplinary Oncology Clinic [address] [place] [address] 08/12/2025 1:40 PM EST Office Visit [facility] Multidisciplinary Oncology Clinic [address] [place] [address] Joi Stewart MD [address] [facility] [address] [place] [address] 08/14/2025 10:00 AM EST Appointment [facility] Vascular Lab [address] [place] [address] 08/14/2025 11:00 AM EST Office Visit [facility] Comprehensive Vascular Clinic [address] [place] [address] [address] [place] [address] Hilary Cordova MD [address] [facility] [address] [place] [address] documented as of this encounter Goals Goal [...] Panel, Plasma (04/22/2025 3:09 PM EDT) Pathologist [facility] Glucose, Plasma 120(H) 74 - 99 mg/dL 04/22/2025 4:12 PM EDT [facility] BUN, Plasma 13 8 - 23 mg/dL 04/22/2025 4:12 PM EDT [facility] Creatinine, Plasma 1.33(H) 0.60 - 1.10 mg/dL 04/22/2025 4:12 PM EDT [facility] BUN/Creatinine Ratio 10 04/22/2025 4:12 PM EDT [facility] Sodium, Plasma 139 136 - 145 mmol/L 04/22/2025 4:12 PM EDT [facility] Potassium, Plasma 3.6 3.6 - 4.9 mmol/L 04/22/2025 4:12 PM EDT [facility] Chloride, Plasma 105 97 - 107 mmol/L 04/22/2025 4:12 PM EDT [facility] CO2, Plasma 23 22 - 29 mmol/L 04/22/2025 4:12 PM EDT [facility] Anion Gap 11 6 - 16 mmol/L 04/22/2025 4:12 PM EDT [facility] Total Calcium, Plasma 9.3 8.9 - 10.2 mg/dL 04/22/2025 4:12 PM EDT [facility] Total Protein 6.3 6.3 - 7.9 g/dL 04/22/2025 4:12 PM EDT [facility] Albumin, Plasma 3.6 3.5 - 5.2 g/dL 04/22/2025 4:12 PM EDT [facility] AST, Plasma 34 10 - 35 U/L 04/22/2025 4:12 PM EDT [facility] Comment:Hemolyzed, result ma y be falsely increased. ALT, Plasma 44(H) 10 - 35 U/L 04/22/2025 4:12 PM EDT [facility] Alkaline Phosphatase, Plasma 82 46 - 142 U/L 04/22/2025 4:12 PM EDT [facility] Total Bilirubin, Plasma 0.3 0.2 - 1.1 mg/dL 04/22/2025 4:12 PM EDT [facility] eGFRcr 41.8 mL/min/1.7 3m*2 04/22/2025 4:12 PM EDT [facility] [...] [facility] [address] [place] [address] * CEA, Serum (04/22/2025 3:09 PM EDT) CEA, Serum 1.9 <4.0 ng/mL 04/22/2025 5:[address] [facility] Blood Blood sample taken from central line / Unknown (Port) Long-term Catheter / Unknown 04/22/2025 3:09 PM EDT 04/22/2025 3:38 PM EDT Narrative [facility] - 04/22/2025 5:10 PM EDT Normal range for smokers: < 5.5 ng/ml Normal range for non-smokers: <=4.0 ng/ml Performed by Karin electrochemiluminescent immunoassay. Results obtained with different test methods or kits cannot be used interchangeably. us Joi Stewart MD LAB BLOOD ORDERABLES Final Res ult [facility] [address] [place] [address] * (ABNORMAL) CBC and Differential (04/22/2025 3:09 PM EDT) WBC Count 6.48 3.70 - 10.30 10*3/uL LAB HEMATOLOGY METHOD 04/22/2025 4:01 PM EDT [facility] RBC Count 3.45(L) 3.90 - 5.20 10*6/uL LAB HEMATOLOGY METHOD 04/22/2025 4:01 PM EDT [facility] HGB 11.7 11.2 - 15.7 g/dL LAB HEMATOLOGY METHOD 04/22/2025 4:01 PM EDT [facility] HCT 34.1 34.0 - 45.0 % LAB HEMATOLOGY METHOD 04/22/2025 4:01 PM EDT [facility] Platelet Count 170 155 - 369 10*3/uL LAB HEMATOLOGY METHOD 04/22/2025 4:01 PM EDT [facility] MCV 99(H) 79 - 98 fL LAB HEMATOLOGY METHOD 04/22/2025 4:01 PM EDT [facility] MCH 33.9(H) 26.0 - 32.0 pg LAB HEMATOLOGY METHOD 04/22/2025 4:01 PM EDT [facility] MCHC 34.3 30.7 - 35.5 g/dL LAB HEMATOLOGY METHOD 04/22/2025 4:01 PM EDT [facility] RDW 15.7(H) 11.5 - 14.5 % LAB HEMATOLOGY METHOD 04/22/2025 4:01 PM EDT [facility] MPV 9.8 8.8 - 12.5 fL LAB HEMATOLOGY METHOD 04/22/2025 4:01 PM EDT [facility] nRBC 0.0 <=0.0 per 100 WBCs LAB HEMATOLOGY METHOD 04/22/2025 4:01 PM EDT [facility] Differential Type Automated LAB HEMATOLOGY METHOD 04/22/2025 4:01 PM EDT [facility] Neutrophils % 67 % LAB HEMATOLOGY METHOD 04/22/2025 4:01 PM EDT [facility] Lymphocytes % 18 % LAB HEMATOLOGY METHOD 04/22/2025 4:01 PM EDT [facility] Monocytes % 11 % LAB HEMATOLOGY METHOD 04/22/2025 4:01 PM EDT [facility] Eosinophils % 3 % LAB HEMATOLOGY METHOD 04/22/2025 4:01 PM EDT [facility] Basophils % 1 % LAB HEMATOLOGY METHOD 04/22/2025 4:01 PM EDT [facility] Immature Granulocytes % 0 % LAB HEMATOLOGY METHOD 04/22/2025 4:01 PM EDT [facility] Neutrophils Absolute 4.45 1.60 - 6.10 10*3/uL LAB HEMATOLOGY METHOD 04/22/2025 4:01 PM EDT [facility] Lymphocytes Absolute 1.14(L) 1.20 - 3.90 10*3/uL LAB HEMATOLOGY METHOD 04/22/2025 4:01 PM EDT [facility] Monocytes Absolute 0.68 0.30 - 0.90 10*3/uL LAB HEMATOLOGY METHOD 04/22/2025 4:01 PM EDT [facility] Eosinophils Absolute 0.16 0.00 - 0.50 10*3/uL LAB HEMATOLOGY METHOD 04/22/2025 4:01 PM EDT [facility] Basophils Absolute 0.03 0.00 - 0.10 10*3/uL LAB HEMATOLOGY METHOD 04/22/2025 4:01 PM EDT [facility] Immature Granulocytes Absolute 0.02 0.00 - 0.06 10*3/uL LAB HEMATOLOGY METHOD 04/22/2025 4:01 PM EDT [facility] Blood Blood sample taken from central line / Unknown (Port) Long-term Catheter / Unknown 04/22/2025 3:09 PM EDT 04/22/2025 3:47 PM EDT Narrative [facility] - 04/22/2025 4:01 PM EDT Therapeutic decision making should be based on absolute values, rather than percentages. us Joi Stewart MD LAB BLOOD ORDERABLES Final Res ult [facility] [address] [place] [address] documented in this encounter Visit Diagnoses Diagnosis [...] documented as of this encounter Care Teams Port Traffic Manager Relationship Specialty Start Date End Date Natalia Wayne APRN [address] [place] [address] PCP - General 12/10/24 documented as of this encounter
--- OUTSIDE RECORDS SUMMARY | 2025-04-22 15:00 | XMS_ITS | Encounter Summary ---
Author Organization Healthcare Address [address] [place] [address] Care Team Providers Care Blast Furnace Helper Name Role Phone Natalia Wayne LEAD INSTRUCTOR/FLIGHT ATTENDANT Primary Care Provider [phone] Reason for Visit * Reason Comments Follow-up Rectal cancer Encounter Details Date Type Department Care Team ([facility] st Contact Info) Description 04/22/2025 3:00 PM EDT Office Visit [facility] Multidisciplinary Oncology Clinic [address] [place] [address] Joi Stewart MD 800 [facility] [address] [place] [address] Rectal cancer (CMS/HCC) (Primary Dx) [...] refused to cover infusion 5FU) 10/21/24-10/24/24: hospitalized [place] with marked dehydration from severe diarrhea due [...] course XRT). Pt will receive XRT at [place] but 5FU civi through due to insurance restrictions (insurance would not approve 5FU civi to be given at [place], but we were able to get coverage for 5FU civi at ). After completion of chemoXRT, would need 4 months FOLFOX to complete total neoadjuvant therapy for clinical stage III rectal cancer prior to surgical resection--depending on tolerance. 12/25/24: first XRT in [place] 12/24/24: start concurrent 5FU infusion with XRT (5FU civi 225mg/m2 iv over 24 hrs daily on days 1-7for 5 weeks concurrent with XRT--long course XRT). Pt will receive XRT at [place] but 5FU civi through due to insurance restrictions (insurance would not approve 5FU civi to be given at [place], but we were able to get coverage [...] --currently getting FOLFOX with Dr. Yip in [place], tolerating well Follow up - Pending CT CAP from today - To complete FOLFOX with Dr. Yip in [place] - We will follow up after she finished, attempt same day with Dr. Fowler 07/30 - 07/30/25: flex sig sched with Dr. Manoj Fowler Patient and family encouraged to call if any problems or concerns prior to next visit. Radiation oncologist Shayy Ovalle. Dr. Mariia Marks phone [phone] >30 minutes was spent on this encounter; including preparing to see the patient, which involved review/interpretation of diagnostics and reports; obtaining and/or reviewing separately obtained history; performing appropriate physical exam; ordering/scheduling medications, tests or procedures; communicating findings and counseling/educating the patient, family and/or caregiver; documentation inEMR; and care coordination. Joi Stewart MD Division of Medical Oncology [facility] Oncology History: Oncology History Overview [...] refused to cover infusion 5FU) 10/21/24-10/24/24: hospitalized [place] with marked dehydration from severe diarrhea due [...] course XRT). Pt will receive XRT at [place] but 5FU civi through due to insurance restrictions (insurance would not approve 5FU civi to be given at [place], but we were able to get coverage [...] sched with Dr. Manoj Fowler Rectal cancer ([facility]/HCC) 08/06/2024 Cancer Staged Staging form: Colon and Rectum, AJCC 8th Edition, Clinical stage from 08/06/2024: Stage IIIB (cT3, cN1, cM0) - Signed by Manoj Fowler MD on 08/13/2024 08/13/2024 Initial Diagnosis Rectal cancer ([facility]) 12/16/2024 - 12/16/2024 Chemotherapy mitoMYcin [...] Continue neoadjuvant FOLFOX with Dr. Yip in [place]. Will see her back here in August 2025 after flex sig with Dr. Fowler. documented in this encounter Plan of Treatment Upcoming Encounters Date Type Department Care Team (Late st Contact Info) Description 07/30/2025 1:00 PM EDT Appointment [facility] [address] [place] [address] Manoj Fowler MD [id number] [place] [address] 08/12/2025 1:30 PM EST Clinical Support [facility] [address] [place] [address] 08/12/2025 1:40 PM EST Office Visit [facility] Multidisciplinary Oncology Clinic [address] [place] [address] Joi Stewart MD 800 [facility] [address] [place] [address] 08/14/2025 10:[address] [facility] Vascular Lab [address] [place] [address] 08/14/2025 11:00 AM EST Office Visit [facility] Comprehensive Vascular Clinic [address] [place] [address] [address] [place] [address] Hilary Cordova MD [id number] [place] [address] Scheduled Orders Name Type Priority [...] documented as of this encounter Care Teams Blast Furnace Helper Relationship Specialty Start Date End Date Natalia Wayne, YVONNE [address] [place] [address] PCP - General 12/10/24 documented as of this encounter
--- OUTSIDE RECORDS SUMMARY | 2025-05-23 11:37 | XMS_ITS | Clinical Summary ---
[facility] [address] [place] [address] Care Team Providers Care Rn Residential Name Role Phone Unavailable Primary Care Provider [...]
--- OUTSIDE RECORDS SUMMARY | 2025-05-23 11:37 | XMS_ITS | Encounter Summary ---
Author Organization Healthcare Address [address] [place] [address] Care Team Providers Care Shirt Folder Name Role Phone Natalia Wayne YVONNE Primary Care Provider [phone] Encounter Details Date Type Department Care Team [...] PM EDT Appointment [facility] [address] [place] [address] Manoj Fowler MD [address] [facility] [address] [place] [address] 08/12/2025 1:30 PM EST Clinical Support [facility] Multidisciplinary Oncology Clinic [address] [place] [address] 08/12/2025 1:40 PM EST Office Visit [facility] Multidisciplinary Oncology Clinic [address] [place] [address] Joi Stewart MD 800 [facility] Tete Baker [facility] [address] [place] [address] 08/14/2025 10:00 AM EST Appointment [facility] Vascular Lab [address] [place] [address] 08/14/2025 11:00 AM EST Office Visit [facility] Comprehensive Vascular Clinic [address] [place] [address] [address] [place] [address] Hilary [place] MD [address] [facility] [address] [place] [address] documented as of this encounter [...] documented as of this encounter Care Teams Shirt Folder Relationship Specialty Start Date End Date Natalia Wayne, YVONNE [address] [place] [address] PCP - General 12/10/24 documented as of this encounter
--- OUTSIDE RECORDS SUMMARY | 2025-05-23 11:38 | XMS_ITS | Encounter Summary ---
Author Organization Healthcare Address [address] [place] [address] Care Team Providers Care Director Of Email Marketing Name Role Phone Natalia Wayne YVONNE Primary Care Provider [phone] Encounter Details Date Type Department Care Team (Late st Contact Info) Description 03/31/2025 Telephone [facility] [address] [place] [address] Manoj Fowler MD [address] [place] [address] Social History Tobacco Use Types [...] time in the past 12 m [facility], were you homeless or living in [...] EDT Appointment [facility] [address] [place] [address] Manoj Fowler MD [facility] [phone] [place] [address] 08/12/2025 1:30 PM EST Clinical Support [facility] Multidisciplinary Oncology Clinic [address] [place] [address] 08/12/2025 1:40 PM EST Office Visit [facility] Multidisciplinary Oncology Clinic [address] [place] [address] Joi Stewart MD 800 [facility] [address] [place] [address] 08/14/2025 10:00 AM EST Appointment [facility] Vascular Lab [address] [place] [address] [address] [place] [address] 08/14/2025 11:00 AM EST Office Visit [facility] Comprehensive Vascular Clinic [address] [place] [address] [address] [place] [address] Hilary [place] MD [address] [facility] [address] [place] [address] documented as of this encounter Goals Goal [...] of this encounter Care Teams Director Of Email Marketing Relationship Specialty Start Date End Date Natalia Wayne, YVONNE [address] [place] [id number] PCP - General 12/10/24 documented as of this encounter
--- OUTSIDE RECORDS SUMMARY | 2025-05-23 11:38 | XMS_ITS | Encounter Summary ---
Author Organization Healthcare Address [address] [place] [address] Care Team Providers Care Family Dinner Service Specialist Name Role Phone Natalia Wayne YVONNE Primary Care Provider [phone] Reason for Visit * Reason Onset Date Comments Flexible Sigmoidoscopy 03/31/2025 Encounter Details Date Type Department Care Team (Latest Contact Info) Description 03/31/2025 Telephone [facility] [address] [place] [address] Manoj Fowler MD [address] [facility] [address] [place] [address] Flexible Sigmoidoscopy Social History Tobacco [...] Anticipates finishing chemo in approx 3-4 mo. Shoder Filler Radha Gilbert notified for r/s flex sig tentatively for late Jul. Pt will call back to clinic if still completing chemo therapy at that time. Pt verbalized understanding. No further questions or concerns. * Telephone Encounter - Joyce Yoo RN - 03/31/2025 1:17 PM EDT Message received from nurse liaison Javad Olivo that Dr. Yip's office ([facility]) is requesting 04/16 flex sig be rescheduled for later. Notes that pt has only received second infusion and will not complete chemo when flex sig is done. LVM with pt requesting call back to clinic to discuss. documented in this encounter Plan of Treatment Upcoming Encounters Date Type Department Care Team ([facility] st Contact Info) Description 07/30/2025 1:00 PM EDT Appointment [facility] Endoscopy [address] [place] [address] Manoj Fowler MD [address] [address] 08/12/2025 1:30 PM EST Clinical Support [facility] Multidisciplinary Oncology Clinic [address] [place] [address] 08/12/2025 1:40 PM EST Office Visit [facility] Multidisciplinary Oncology Clinic [address] [place] [address] Joi Stewart MD 800 [facility] [address] [place] [address] 08/14/2025 10:00 AM EST Appointment [facility] [address] [place] [address] 08/14/2025 11:00 AM EST Office Visit [facility]ascular Clinic [address] [place] [address] Hilary Cordova MD [address] [place] [address] documented as of this encounter Goals Goal [...] documented as of this encounter Care Teams Family Dinner Service Specialist Relationship Specialty Start Date End Date Natalia Wayne, YVONNE [address] [place] [address] PCP - General 12/10/24 documented as of this encounter
--- OUTSIDE RECORDS SUMMARY | 2025-05-23 11:38 | XMS_ITS ---
Author Organization [facility] Address [address] [place] [address] Care Team Providers Care Forklift Operator Name Role Phone Natalia Wayne APRN Primary Care Provider [phone] Active Problems Problem Noted Date Diagnosed Date [...] infusion - for home use ([facility] supplied) CADD 100ML Therapy Complete Joi Stewart MD 1 of 1 cycle started MitoMYcin + Fluorouracil Every 28 Days x 2 + XRT 12/17/19 25 12/13/2024 5-FU CHEMO INFUSION ([facility] SUPPLIED) CADD ORDERABLEmitoMYcin (Mutamycin) Other (See Comments) Joi Stewart MD Treatment not started Resolved Problems Problem Noted Date Diagnosed Date Resolved Date Large bowel obstruction 08/31/2024 120 01/2024
--- OUTSIDE RECORDS SUMMARY | 2025-05-23 11:38 | XMS_ITS | Encounter Summary ---
Author Organization Healthcare Address [address] [place] [address] Care Team Providers Care Windows Phone Developer Name Role Phone Pcp, No Primary Care Provider Nataila Hector APRN Primary Care Provider [phone] Encounter Details Date Type Department Care Team (Late st Contact Info) Description 11/14/2024 Orders Only External Location [address] [place] [address] Provider, External Social History Tobacco Use Types [...] PM EDT Appointment [facility] [address] [place] [address] Manoj Fowler MD [address] [facility] [address] [place] [address] 08/12/2025 1:30 PM EST Clinical Support [facility] Multidisciplinary Oncology Clinic [address] [place] [address] 08/12/2025 1:40 PM EST Office Visit [facility] Multidisciplinary Oncology Clinic [address] [place] [address] Joi Stewart MD 800 [facility] Tete Baker [facility] [address] [place] [address] 08/14/2025 10:00 AM EST Appointment [facility] [address] [facility] 5th Floor [address] [place] [address] 08/14/2025 11:00 AM EST Office Visit [facility] [address] [place] [address] Hilary Cordova MD [address] [place] [address] documented as of this [...] documented as of this encounter Care Teams Windows Phone Developer Relationship Specialty Start Date End Date Pcp, Mady [address] [place] [address] PCP - General Family Medicine 06/11/24 12/09/24 Natalia Wayne, YVONNE [address] [place] [address] PCP - General 12/10/24 documented as of this encounter
--- OUTSIDE RECORDS SUMMARY | 2025-05-23 11:38 | XMS_ITS | Clinical Summary ---
Author Organization [facility] Address [address] [place] [address] Care Team Providers Care Senior Mortgage Underwriter Name Role Phone Natalia Wayne YVONNE Primary Care Provider [phone] Allergies No known active allergies Medications rosuvastatin [...] EDT Office Visit [facility] [address] [place] [address] Joi Stewart MD Rectal cancer (CMS/HCC) (Primary Dx) 04/22/2025 2:50 PM EDT Clinical Support [facility] [address] [place] [address] Anika Joya, RN Rectal cancer (CMS/HCC) 04/22/2025 11:26 AM EDT - 04/22/2025 11:59 PM EDT Hospital Encounter [facility] [address] [place] [address] Rectal cancer (CMS/HCC) Discharge Disposition: Home or Self Care 04/22/2025 Travel 03/31/2025 Telephone [facility] [address] [place] [address] Manoj Fowler MD 03/31/2025 Telephone [facility] [address] [place] [address] Manoj Fowler MD Flexible Sigmoidoscopy from [...] th e electric, gas, oil, or water [employer] threatened to shut off services in your [...] PM EDT Appointment [facility] [address] [place] [address] Manoj Fowler MD [address] [facility] [address] [place] [address] 08/12/2025 1:30 PM EST Clinical Support [facility] Multidisciplinary Oncology Clinic [address] [place] [address] 08/12/2025 1:40 PM EST Office Visit [facility] Multidisciplinary Oncology Clinic [address] [place] [address] Joi Stewart MD 800 [facility] [address] [place] [address] 08/14/2025 10:00 AM EST Appointment [facility] Lab [address] [facility] 5th Floor [address] [place] [address] 08/14/2025 11:00 AM EST Office Visit [place] [facility] [address] 5th [address] [place] [address] Hilary Cordova MD [address] [facility] [address] [place] [address] Health Maintenance Due Date Last Done Comments [facility]-Bone Density Scan 1949 [facility]-Medicare Annual Wellness (AWV) 1949 [facility]-/Child/Adol SDOH Screenings 1949 [facility]-DTaP,Tdap,and Td Vaccine s (1 - Tdap) 1968 [facility]-Pneumococcal Vaccine: 50 + Years (1 of 2 - PCV) 1968 [facility]Y-Zoster Vaccines (1 of 2) 1968 CT Colonography 1994 FIT-DNA 1994 FIT 1994 FOBT 1994 Sigmoidoscopy 1994 [id number] Vaccine (2 - Cady risk series) 01/07/2021 [...] LAB HEMATOLOGY METHOD 04/22/2025 4:01 PM EDT [facility] RBC Count 3.45(L) 3.90 - 5.20 10*6/uL LAB HEMATOLOGY METHOD 04/22/2025 4:01 PM EDT [facility] HGB 11.7 11.2 - 15.7 g/dL LAB HEMATOLOGY METHOD 04/22/2025 4:01 PM EDT [facility] HCT 34.1 34.0 - 45.0 % LAB HEMATOLOGY METHOD 04/22/2025 4:01 PM EDT [facility] Platelet Count 170 155 - 369 10*3/uL LAB HEMATOLOGY METHOD 04/22/2025 4:01 PM EDT [facility] MCV 99(H) 79 - 98 fL LAB HEMATOLOGY METHOD 04/22/2025 4:01 PM EDT [facility] MCH 33.9(H) 26.0 - 32.0 pg LAB HEMATOLOGY METHOD 04/22/2025 4:01 PM EDT [facility] MCHC 34.3 30.7 - 35.5 g/dL LAB HEMATOLOGY METHOD 04/22/2025 4:01 PM EDT [facility] RDW 15.7(H) 11.5 - 14.5 % LAB HEMATOLOGY METHOD 04/22/2025 4:01 PM EDT [facility] MPV 9.8 8.8 - 12.5 fL LAB HEMATOLOGY METHOD 04/22/2025 4:01 PM EDT [facility] nRBC 0.0 <=0.0 per 100 WBCs LAB HEMATOLOGY METHOD 04/22/2025 4:01 PM EDT [facility] Differential Type Automated LAB HEMATOLOGY METHOD 04/22/2025 4:01 PM EDT [facility] Neutrophils % 67 % LAB HEMATOLOGY METHOD 04/22/2025 4:01 PM EDT [facility] Lymphocytes % 18 % LAB HEMATOLOGY METHOD 04/22/2025 4:01 PM EDT [facility] Monocytes % 11 % LAB HEMATOLOGY METHOD 04/22/2025 4:01 PM EDT [facility] Eosinophils % 3 % LAB HEMATOLOGY METHOD 04/22/2025 4:01 PM EDT [facility] Basophils % 1 % LAB HEMATOLOGY METHOD 04/22/2025 4:01 PM EDT [facility] Immature Granulocytes % 0 % LAB HEMATOLOGY METHOD 04/22/2025 4:01 PM EDT [facility] Neutrophils Absolute 4.45 1.60 - 6.10 10*3/uL LAB HEMATOLOGY METHOD 04/22/2025 4:01 PM EDT [facility] Lymphocytes Absolute 1.14(L) 1.20 - 3.90 10*3/uL LAB HEMATOLOGY METHOD 04/22/2025 4:01 PM EDT [facility] Monocytes Absolute 0.68 0.30 - 0.90 10*3/uL LAB HEMATOLOGY METHOD 04/22/2025 4:01 PM EDT [facility] Eosinophils Absolute 0.16 0.00 - 0.50 10*3/uL LAB HEMATOLOGY METHOD 04/22/2025 4:01 PM EDT [facility] Basophils Absolute 0.03 0.00 - 0.10 10*3/uL LAB HEMATOLOGY METHOD 04/22/2025 4:01 PM EDT [facility] Immature Granulocytes Absolute 0.02 0.00 - 0.06 10*3/uL LAB HEMATOLOGY METHOD 04/22/2025 4:01 PM EDT [facility] Blood Blood sample taken from central line / Unknown (Port) Long-term Catheter / Unknown 04/22/2025 3:09 PM EDT 04/22/2025 3:47 PM EDT Narrative [facility] - 04/22/2025 4:01 PM EDT Therapeutic decision making should be based on absolute values, rather than percentages. us Joi Stewart MD LAB BLOOD ORDERABLES Final Res ult [facility] [address] [place] [address] * CEA, Serum (04/22/2025 3:09 PM EDT) CEA, Serum 1.9 <4.0 ng/mL 04/22/2025 5:10 PM EDT [facility] Blood Blood sample taken from central line / Unknown (Port) Long-term Catheter / Unknown 04/22/2025 3:09 PM EDT 04/22/2025 3:38 PM EDT Narrative [facility] - 04/22/2025 5:10 PM EDT Normal range for smokers: < 5.5 ng/ml Normal range for non-smokers: <=4.0 ng/ml Performed by Karin electrochemiluminescent immunoassay. Results obtained with different test methods or kits cannot be used interchangeably. us Joi Stewart MD LAB BLOOD ORDERABLES Final Res ult [facility] [address] [place] [address] * (ABNORMAL) Comprehensive Metabolic Panel, Plasma (04/22/2025 3:09 PM EDT) Glucose, Plasma 120(H) 74 - 99 mg/dL 04/22/2025 4:12 PM EDT [facility] BUN, Plasma 13 8 - 23 mg/dL 04/22/2025 4:12 PM EDT [facility] Creatinine, Plasma 1.33(H) 0.60 - 1.10 mg/dL 04/22/2025 4:12 PM EDT [facility] BUN/Creatinine Ratio 10 04/22/2025 4:12 PM EDT [facility] Sodium, Plasma 139 136 - 145 mmol/L 04/22/2025 4:12 PM EDT [facility] Potassium, Plasma 3.6 3.6 - 4.9 mmol/L 04/22/2025 4:12 PM EDT [facility] Chloride, Plasma 105 97 - 107 mmol/L 04/22/2025 4:12 PM EDT [facility] CO2, Plasma 23 22 - 29 mmol/L 04/22/2025 4:12 PM EDT [facility] Anion Gap 11 6 - 16 mmol/L 04/22/2025 4:12 PM EDT [facility] Total Calcium, Plasma 9.3 8.9 - 10.2 mg/dL 04/22/2025 4:12 PM EDT [facility] Total Protein 6.3 6.3 - 7.9 g/dL 04/22/2025 4:12 PM EDT [facility] Albumin, Plasma 3.6 3.5 - 5.2 g/dL 04/22/2025 4:12 PM EDT [facility] AST, Plasma 34 10 - 35 U/L 04/22/2025 4:12 PM EDT [facility] Comment:Hemolyzed, result ma y be falsely increased. ALT, Plasma 44(H) 10 - 35 U/L 04/22/2025 4:12 PM EDT [facility] Alkaline Phosphatase, Plasma 82 46 - 142 U/L 04/22/2025 4:12 PM EDT [facility] Total Bilirubin, Plasma 0.3 0.2 - 1.1 mg/dL 04/22/2025 4:12 PM EDT [facility] eGFRcr 41.8 mL/min/1.7 3m*2 04/22/2025 4:12 PM EDT [facility] Comment:Reported eGFRcr in m L/min/1.73m2 is based the CKD-EPI 2020 equation that does not use a race coefficient. Blood Blood sample taken from central line / Unknown (Port) Long-term Catheter / Unknown 04/22/2025 3:09 PM EDT 04/22/2025 3:39 PM EDT us Joi Stewart MD LAB BLOOD ORDERABLES Final Res ult [facility] [address] [place] [address] * CT Abdomen Pelvis w IV Contrast [...] Total DLP (Dose-Length Product): 640.83 mGy.cm (accession [id number]), 640.83 mGy.cm (accession [id number]). Please note: The reported value represents the [...] Total DLP (Dose-Length Product): 640.83 mGy.cm (accession [id number]),640.83 mGy.cm (accession [id number]). Please note: The reported valuerepresents the total [...] Total DLP (Dose-Length Product): 640.83 mGy.cm (accession [id number]), 640.83 mGy.cm (accession [id number]). Please note: The reported value represents the [...] Total DLP (Dose-Length Product): 640.83 mGy.cm (accession [id number]),640.83 mGy.cm (accession [id number]). Please note: The reported valuerepresents the total [...] 2:08 PM Final report signed by Hitesh uLcero MD on 04/22/2025 3:58 PM us Joi Stewart MD IMG CT PROCEDURES Final Result * Hepatitis C Antibody - ED (08/31/2024 5:22 PM EST) Hepatitis C Antibody Negative Negative 08/31/2024 6:21 PM EST [facility] Blood Venous blood specimen / Unknown Venipuncture / Unknown 08/31/2024 5:22 PM EST 08/31/2024 5:40 PM EST us Meño Cano MD LAB BLOOD ORDERABLES Final Re sult [facility] [address] [place] [address] * Colonoscopy (07/22/2024 9:29 AM EDT) Anatomical [...] medications. Staff Staff Role Robert Bueno Endo Gas Station Operator Shruti Gutierrez CRNA CRNA Gantt, Randolph Endo Gas Station Operator Richard Borja MD Proceduralist Marcelina Arana Nurse [...] of bowel preparation was evaluated using the [place] Bowel Preparation Scale with scores of: right [...] Diagnosed Date Autogenerated Problem 03/31/2025 [facility] [place] [id number] MEDICARE Member Subscriber Plan / Payer (Ef fective 2015-Present) Name:Lashae Sim Member ID:[id number] Relation to Subscriber:Self Name:Lashae Sim Subscriber ID:[id number] Payer ID:MEDICARE Group ID:Not on file Type:Medicare Address: [place] [id number] Advance Directives * Full Code (Latest Code Status on File) Date Activated Date Inactivated Comments 09/02/2024 9:48 PM 09/05/2024 12:25 PM Question Answer Comments Patient has decision-making capacity? Yes * Full Code Date Activated Date Inactivated Comments 08/31/2024 7:20 PM 09/02/2024 9:48 PM Question Answer Comments Patient has decision-making capacity? Yes Care Teams Senior Mortgage Underwriter Relationship Specialty Start Date End Date Natalia Wayne APRN [address] [place] [address] PCP - General 12/10/24
[2025-05-23] MEDS: SODIUM CHLORIDE 0.9% 10ML FLUSH SYRINGE 10 ML IV (11:40)
== END 2025-05-23 11:40 | disposition home or self-care (01) ==
LOC: INF 11:36
PROVIDERS: PCP Nurse Practitioner Family; Visit Provider Internal Medicine Medical Oncology
DX: C20 Malignant neoplasm of rectum (principal)
CPT/HCPCS: 96523; J1642

== ENCOUNTER 2025-06-01 09:51 | Observation (INO) | payer MEDICARE, SELFPAY ==
--- OUTSIDE RECORDS SUMMARY | 2025-04-22 11:26 | XMS_ITS | Encounter Summary ---
Author Organization [facility] Address [address] [place] [address] Care Team Providers Care Weigh Tank Operator Name Role Phone Natalia Wayne YVONNE Primary Care Provider [phone] Reason for Referral * Imaging (Routine) - Closed Specialty Diagnoses / Procedures Referred By Lexii t Referred To Contact Radiology Diagnoses Rectal cancer (CMS/HCC) Procedures CT Chest w IV Contrast Joi Stewart MD [address] [address] Phone: tel: fax: Referral ID Status Reason Start Date Expiration Date Visits Re quested Visits Authorized [id number] Closed 02/13/2025 08/15/2026 1 1 * Imaging (Routine) - Closed Specialty Diagnoses / Procedures Referred By Lexii moody Referred To Contact Radiology Diagnoses Rectal cancer (CMS/HCC) Procedures CT Abdomen Pelvis w IV Contrast Joi Stewart MD [address] [address] Phone: tel: fax: Referral ID Status Reason Start Date Expiration Date Visits Re quested Visits Authorized [id number] Closed 02/13/2025 08/15/2026 1 1 Reason for Visit * Imaging (Routine) - Closed Specialty Diagnoses / Procedures Referred By Lexii moody Referred To Contact Radiology Diagnoses Rectal cancer (CMS/HCC) Procedures CT Chest w IV Contrast Joi Stewart MD 800 [facility] [address] [place] [address] Phone: tel: fax: Referral ID Status Reason Start Date Expiration Date Visits Re quested Visits Authorized [id number] Closed 02/13/2025 08/15/2026 1 1 Encounter Details Date Type Department Care Team (Latest Contact Info) Description 04/22/2025 11:26 AM EDT - 04/22/2025 11:59 PM EDT Hospital Encounter [facility] CT [address] [place] [address] Rectal cancer (CMS/HCC) Discharge Disposition: [...] in the past [address] [facility], were you homeless or living in a [...] Upcoming Encounters Date Type Department Care Team ([facility] st Contact Info) Description 07/30/2025 1:00 PM EDT Appointment [facility] [address] [place] [address] Manoj Fowler MD [address] [facility] [address] [place] [address] 08/12/2025 1:30 PM EST Clinical Support [facility] Multidisciplinary Oncology Clinic [address] [place] [address] 08/12/2025 1:40 PM EST Office Visit [facility] Multidisciplinary Oncology Clinic [address] [place] [address] Joi Stewart MD 800 [facility] Tete Baker [facility] [address] [place] [address] 09/04/2025 10:00 AM EST Appointment [facility] Vascular Lab [address] [facility] 5th Floor [address], [address] [place] [address] 09/04/2025 11:00 AM EST Office Visit [facility] Comprehensive Vascular Clinic [address] [facility] 5th Floor [address], [address] [place] [address] Hilary Cordova MD [address] [facility] [address] [place] [address] documented as of this encounter Goals Goal [...] Total DLP (Dose-Length Product): 640.83 mGy.cm (accession [id number]), 640.83 mGy.cm (accession [id number]). Please note: The reported value represents the [...] Total DLP (Dose-Length Product): 640.83 mGy.cm (accession [id number]),640.83 mGy.cm (accession [id number]). Please note: The reported valuerepresents the total [...] Total DLP (Dose-Length Product): 640.83 mGy.cm (accession [id number]), 640.83 mGy.cm (accession [id number]). Please note: The reported value represents the [...] Total DLP (Dose-Length Product): 640.83 mGy.cm (accession [id number]),640.83 mGy.cm (accession [id number]). Please note: The reported valuerepresents the total [...] documented as of this encounter Care Teams Weigh Tank Operator Relationship Specialty Start Date End Date Natalia Wayne, FRUIT OR NUT PICKER [address] [place] [phone] PCP - General 12/10/24 documented as of this encounter
--- OUTSIDE RECORDS SUMMARY | 2025-04-22 14:50 | XMS_ITS | Encounter Summary ---
Author Organization [facility] Address [address] [place] [address] Care Team Providers Care Day Care Supervisor Name Role Phone Natalia Wayne YVONNE Primary Care Provider [phone] Encounter Details Date Type Department Care Team (Latest Contact Info) Description 04/22/2025 2:50 PM EDT Clinical Support [facility] Multidisciplinary Oncology Clinic [address] [place] [address] Anika Joya, RN Rectal cancer (CMS/HCC) Social History Tobacco Use Types Packs/Day Years [...] were you homeless or living in a [place] [facility] (including now)? No 09/02/2024 Utilities Answer Date [...] Alia Fong documented as of this encounter Miscellaneous Notes * Progress Notes - Anika Joya, RN - 04/22/2025 2:50 PM EDT Port labs drawn documented in this encounter Plan of Treatment Upcoming Encounters Date Type Department Care Team (Late st Contact Info) Description 07/30/2025 1:00 PM EDT Appointment [facility] [address] [place] [address] Manoj Fowler MD [address] [facility] [address] [place] [address] 08/12/2025 1:30 PM EST Clinical Support [facility] Multidisciplinary Oncology Clinic [address] [place] [address] 08/12/2025 1:40 PM EST Office Visit [facility] Multidisciplinary Oncology Clinic [address] [place] [address] Joi Stewart MD 800 [facility] [address] [place] [address] 09/04/2025 10:00 AM EST Appointment [facility] Vascular Lab [address] [place] [address] 09/04/2025 11:00 AM EST Office Visit [facility] Comprehensive Vascular Clinic [address] [place] [address] [address], [address] [place] [address] Hilary Cordova MD [address] [facility] [address] [place] [address] documented as of this encounter Goals Goal Patient Goal Type Associated Problems Recent Progress Patient-Stated? Author Autogenerat ed Goal Care Plan Autogenerated Problem Geno Iraheta documented as of this encounter Procedures Procedure Name Priority Date/Time Associated Diagnosis Comments CBC WITH AUTO DIFFERENTIAL Routine 04/22/2025 3:09 PM EDT Rectal cancer (CMS/HCC) CEA, SERUM Routine 04/22/2025 3:09 PM EDT Rectal cancer (CMS/HCC) COMPREHENSIVE METABOLIC PANEL, PLASMA Routine 04/22/2025 3:09 PM EDT Rectal cancer (CMS/HCC) documented in this encounter Results * (ABNORMAL) Comprehensive Metabolic Panel, Plasma (04/22/2025 3:09 PM EDT) Pathologist [facility] Glucose, Plasma 120(H) 74 - 99 mg/dL 04/22/2025 4:12 PM EDT [facility] BUN, Plasma 13 8 - 23 mg/dL 04/22/2025 4:12 PM EDT [facility] Creatinine, Plasma 1.33(H) 0.60 - 1.10 mg/dL 04/22/2025 4:12 PM EDT [facility] BUN/Creatinine Ratio 10 04/22/2025 4:12 PM EDT [facility] Sodium, Plasma 139 136 - 145 mmol/L 04/22/2025 4:12 PM EDT [facility] Potassium, Plasma 3.6 3.6 - 4.9 mmol/L 04/22/2025 4:12 PM EDT [facility] Chloride, Plasma 105 97 - 107 mmol/L 04/22/2025 4:12 PM EDT [facility] CO2, Plasma 23 22 - 29 mmol/L 04/22/2025 4:12 PM EDT [facility] Anion Gap 11 6 - 16 mmol/L 04/22/2025 4:12 PM EDT [facility] Total Calcium, Plasma 9.3 8.9 - 10.2 mg/dL 04/22/2025 4:12 PM EDT [facility] Total Protein 6.3 6.3 - 7.9 g/dL 04/22/2025 4:12 PM EDT [facility] Albumin, Plasma 3.6 3.5 - 5.2 g/dL 04/22/2025 4:12 PM EDT [facility] AST, Plasma 34 10 - 35 U/L 04/22/2025 4:12 PM EDT [facility] Comment:Hemolyzed, result ma y be falsely increased. ALT, Plasma 44(H) 10 - 35 U/L 04/22/2025 4:12 PM EDT [facility] Alkaline Phosphatase, Plasma 82 46 - 142 U/L 04/22/2025 4:12 PM EDT [facility] Total Bilirubin, Plasma 0.3 0.2 - 1.1 mg/dL 04/22/2025 4:12 PM EDT [facility] eGFRcr 41.8 mL/min/1.7 3m*2 04/22/2025 4:12 PM EDT [facility] Comment:Reported eGFRcr in m L/min/1.73m2 is based the CKD-EPI 2020 equation that does not use a race coefficient. Blood Blood sample taken from central line / Unknown (Port) Long-term Catheter / Unknown 04/22/2025 3:09 PM EDT 04/22/2025 3:39 PM EDT us Joi Stewart MD LAB BLOOD ORDERABLES Final Res ult [facility] [address] [place] [address] * CEA, Serum (04/22/2025 3:09 PM EDT) CEA, Serum 1.9 <4.0 ng/mL 04/22/2025 5:10 PM EDT [facility] Blood Blood sample taken from central line / Unknown (Port) Long-term Catheter / Unknown 04/22/2025 3:09 PM EDT 04/22/2025 3:38 PM EDT Narrative [facility] - 04/22/2025 5:10 PM EDT Normal range for smokers: < 5.5 ng/ml Normal range for non-smokers: <=4.0 ng/ml Performed by Kar[employer] electrochemiluminescent immunoassay. Results obtained with different test methods or kits cannot be used interchangeably. us Joi Stewart MD LAB BLOOD ORDERABLES Final Res ult [facility] [address] [place] [address] * (ABNORMAL) CBC and Differential (04/22/2025 3:09 PM EDT) WBC Count 6.48 3.70 - 10.30 10*3/uL LAB HEMATOLOGY METHOD 04/22/2025 4:01 PM EDT [facility] RBC Count 3.45(L) 3.90 - 5.20 10*6/uL LAB HEMATOLOGY METHOD 04/22/2025 4:01 PM EDT [facility] HGB 11.7 11.2 - 15.7 g/dL LAB HEMATOLOGY METHOD 04/22/2025 4:01 PM EDT [facility] HCT 34.1 34.0 - 45.0 % LAB HEMATOLOGY METHOD 04/22/2025 4:01 PM EDT [facility] Platelet Count 170 155 - 369 10*3/uL LAB HEMATOLOGY METHOD 04/22/2025 4:01 PM EDT [facility] MCV 99(H) 79 - 98 fL LAB HEMATOLOGY METHOD 04/22/2025 4:01 PM EDT [facility] MCH 33.9(H) 26.0 - 32.0 pg LAB HEMATOLOGY METHOD 04/22/2025 4:01 PM EDT [facility] MCHC 34.3 30.7 - 35.5 g/dL LAB HEMATOLOGY METHOD 04/22/2025 4:01 PM EDT [facility] RDW 15.7(H) 11.5 - 14.5 % LAB HEMATOLOGY METHOD 04/22/2025 4:01 PM EDT [facility] MPV 9.8 8.8 - 12.5 fL LAB HEMATOLOGY METHOD 04/22/2025 4:01 PM EDT [facility] nRBC 0.0 <=0.0 per 100 WBCs LAB HEMATOLOGY METHOD 04/22/2025 4:01 PM EDT [facility] Differential Type Automated LAB HEMATOLOGY METHOD 04/22/2025 4:01 PM EDT [facility] Neutrophils % 67 % LAB HEMATOLOGY METHOD 04/22/2025 4:01 PM EDT [facility] Lymphocytes % 18 % LAB HEMATOLOGY METHOD 04/22/2025 4:01 PM EDT [facility] Monocytes % 11 % LAB HEMATOLOGY METHOD 04/22/2025 4:01 PM EDT [facility] Eosinophils % 3 % LAB HEMATOLOGY METHOD 04/22/2025 4:01 PM EDT [facility] Basophils % 1 % LAB HEMATOLOGY METHOD 04/22/2025 4:01 PM EDT [facility] Immature Granulocytes % 0 % LAB HEMATOLOGY METHOD 04/22/2025 4:01 PM EDT [facility] Neutrophils Absolute 4.45 1.60 - 6.10 10*3/uL LAB HEMATOLOGY METHOD 04/22/2025 4:01 PM EDT [facility] Lymphocytes Absolute 1.14(L) 1.20 - 3.90 10*3/uL LAB HEMATOLOGY METHOD 04/22/2025 4:01 PM EDT [facility] Monocytes Absolute 0.68 0.30 - 0.90 10*3/uL LAB HEMATOLOGY METHOD 04/22/2025 4:01 PM EDT [facility] Eosinophils Absolute 0.16 0.00 - 0.50 10*3/uL LAB HEMATOLOGY METHOD 04/22/2025 4:01 PM EDT [facility] Basophils Absolute 0.03 0.00 - 0.10 10*3/uL LAB HEMATOLOGY METHOD 04/22/2025 4:01 PM EDT [facility] Immature Granulocytes Absolute 0.02 0.00 - 0.06 10*3/uL LAB HEMATOLOGY METHOD 04/22/2025 4:01 PM EDT [facility] Blood Blood sample taken from central line / Unknown (Port) Long-term Catheter / Unknown 04/22/2025 3:09 PM EDT 04/22/2025 3:47 PM EDT Narrative [facility] - 04/22/2025 4:01 PM EDT Therapeutic decision making should be based on absolute values, rather than percentages. us Joi Stewart MD LAB BLOOD ORDERABLES Final Res ult [facility] [address] [place] [address] documented in this encounter Visit Diagnoses Diagnosis [...] documented as of this encounter Care Teams Day Care Supervisor Relationship Specialty Start Date End Date Natalia Wayne APRN [address] [place] [address] PCP - General 12/10/24 documented as of this encounter
--- OUTSIDE RECORDS SUMMARY | 2025-04-22 15:00 | XMS_ITS | Encounter Summary ---
Author Organization Healthcare Address [address] [place] [address] Care Team Providers Care Legal Billing Analyst Name Role Phone Natalia Wayne GRAVEL SCREENER Primary Care Provider [phone] Reason for Visit * Reason Comments Follow-up Rectal cancer Encounter Details Date Type Department Care Team ([facility] st Contact Info) Description 04/22/2025 3:00 PM EDT Office Visit [facility] Multidisciplinary Oncology Clinic [address] [place] [address] Joi Stewart MD 800 [facility] [address] [place] [address] Rectal cancer (CMS/HCC) (Primary Dx) Social [...] Sign Reading Time Taken Comments Blood Pressure 187/71 04/22/2025 2:41 PM EDT Pulse 83 04/22/2025 2:41 PM EDT Temperature 36.6 C (97.9 F) 04/22/2025 2:41 PM EDT Respiratory Rate 16 04/22/2025 2:41 PM EDT Oxygen Saturation 98% 04/22/2025 2:41 PM EDT Inhaled Oxygen Concentration - - Weight 65.8 kg (145 lb 1 oz) 04/22/2025 2:41 PM EDT Height 170.2 cm (5' 7 ) 04/22/2025 2:41 PM EDT Body Mass Index 22.72 04/22/2025 2:41 PM EDT documented in this encounter Functional Status * Over the [...] encounter Miscellaneous Notes * Progress Notes - Andre Walker MD - 04/22/2025 3:00 PM EDT Medical Oncology Follow up Patient Information Patient Name: Lashae Wyman Date of : 1950 74 y.o. REFERRING PHYSICIAN: No referring provider defined for this encounter. Encounter Date: 04/22/2025 Patient Care Team: Natalia Wayne APRN as PCP - General Chief Complaint Patient presents with Follow-up Rectal cancer Treatment Diagnosis: @AMBDIAGX@ Cancer Staging: Cancer Staging [...] refused to cover infusion 5FU) 10/21/24-10/24/24: hospitalized [place] with marked dehydration from severe diarrhea due [...] course XRT). Pt will receive XRT at [place] but 5FU civi through due to insurance restrictions (insurance would not approve 5FU civi to be given at [place], but we were able to get coverage for 5FU civi at ). After completion of chemoXRT, would need 4 months FOLFOX to complete total neoadjuvant therapy for clinical stage III rectal cancer prior to surgical resection--depending on tolerance. 12/25/24: first XRT in [place] 12/24/24: start concurrent 5FU infusion with XRT (5FU civi 225mg/m2 iv over 24 hrs daily on days 1-7 for 5 weeks concurrent with XRT--long course XRT). Pt will receive XRT at [place] but 5FU civi through due to insurance restrictions (insurance would not approve 5FU civi to be given at [place], but we were able to get coverage [...] residual tumor. No suspicious lymph nodes. Plan 04/28/25: --she essentially only got one cycle or [...] tolerate FOLFOX well. Would not rechallenge capecitabine. --currently getting FOLFOX with Dr. Yip in [place], tolerating well Follow up - Pending CT CAP from today - To complete FOLFOX with Dr. Yip in [place] - We will follow up after she finished, attempt same day with Dr. Fowler 07/30 - 07/30/25: flex sig sched with Dr. Manoj Fowler Patient and family encouraged to call if any problems or concerns prior to next visit. Radiation oncologist Shayy Ovalle. Dr. Mariia Marks phone [phone] >30 minutes was spent on this encounter; including preparing to see the patient, which involved review/interpretation of diagnostics and reports; obtaining and/or reviewing separately obtained history; performing appropriate physical exam; ordering/scheduling medications, tests or procedures; communicating findings and counseling/educating the patient, family and/or caregiver; documentation inEMR; and care coordination. Joi Stewart MD Division of Medical Oncology [facility] Oncology History: Oncology History Overview Note Rectal cancer, MMR intact 07/22/24: colonoscopy Dr. Manoj Fowler--10 or more [...] refused to cover infusion 5FU) 10/21/24-10/24/24: hospitalized [place] with marked dehydration from severe diarrhea due [...] course XRT). Pt will receive XRT at [place] but 5FU civi through due to insurance restrictions (insurance would not approve 5FU civi to be given at [place], but we were able to get coverage for 5FU civi at ). After completion of chemoXRT, would need 4 months FOLFOX to complete total neoadjuvant therapy for clinical stage III rectal cancer prior to surgical resection--depending on tolerance. 01/28/25: last day 5FU civi concurrent with XRT 5/6/25: MR pelvis with and without contrast--good but not complete response. Significant loss in tumor size. Small focus of residual tumor. No suspicious lymph nodes. 04/22/25: CT CAP with contrast--no evidence of distant metastatic disease. No evidence of disease progression. 07/30/25: flex sig sched with Dr. 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 Has had some fatigue since starting, however able to do her chores and responsibility. Nausea but controlled with anti- emetics. Leg itching, may be related to bug bites. Otherwise doing well. Past Medical, Surgical, Family and Social History Past Medical History[1] Surgical History[2] Family History[3] Social History[4] Allergies and Adverse Drug Reactions Patient has no known allergies. Medications Current Medications[5] Review of Systems: 14 pt review of systems performed and negative except as noted in HPI. PE: Vitals: 04/22/25 1441 BP: (!) 187/71 Pulse: 83 Resp: 16 Temp: 36.6 ??C (97.9 ??F) SpO2: 98% Wt Readings from Last 3 Encounters: 04/22/25 65.8 kg (145 lb 1 oz) 02/04/25 62.6 kg (138 lb) 01/28/25 65.5 kg (144 lb 6.4 oz) ECO General: Sitting/resting comfortably in chair, NAD HEENT: NCAT, PERRL/EOMI, anicteric Neck: Supple, no cervical or supraclavicular adenopathy Heart: RRR, no MGR Lungs: CTAB; no rales, rhonchi or wheezes Abdomen: Soft, NTND, + BS. +ostomy. Extremities: No edema, distal pulses intact Musculoskeletal: No focal tenderness or deformity Skin: some small scattered lower extremity excoriations. No jaundice Neuro: Grossly nonfocal; no localizing deficits of strength, sensation, or mentation. Normal gait Psychiatric: Normal mood and thought content Access: port c/d/I left chest LABORATORY AND IMAGING STUDIES: Blood pressure (!) 187/71, pulse 83, temperature 36.6 ??C (97.9 ??F), resp. rate 16, height 1.702 m(5' 7 ), weight 65.8 kg (145 lb 1 oz), SpO2 98%. Lab Results Component Value Date WBC 6.48 04/22/2025 HGB 11.7 04/22/2025 HCT 34.1 04/22/2025 MCV 99 (H) 04/22/2025 PLT 170 04/22/2025 Lab Results Component Value Date NEUTROABS 4.45 04/22/2025 Lab Results Component Value Date GLUCOSE 120 (H) 04/22/2025 CALCIUM 9.3 04/22/2025 NA 139 04/22/2025 K 3.6 04/22/2025 CO2 23 04/22/2025 CL 105 04/22/2025 BUN 13 04/22/2025 CREATININE 1.33 (H) 04/22/2025 Lab Results Component Value Date CALCIUM 9.3 04/22/2025 PHOS 4.8 (H) 09/03/2024 Lab Results Component Value Date ALBUMIN 3.6 04/22/2025 Lab Results Component Value Date ALT 44 (H) 04/22/2025 AST 34 04/22/2025 ALKPHOS 82 04/22/2025 BILITOT 0.3 04/22/2025 Recent Labs Units 07/30/24 1622 12/24/24 0918 04/22/25 1509 CEA ng/mL <1.8 <1.8 1.9 No image results found. Please see oncology [...] packs/day: 0.50 Average packs/day: 0.5 packs/day for 50.6 years (25.3 ttl pk-yrs) Types: Cigarettes Start date: 1975 Passive exposure: Past Smokeless tobacco: Never Vaping Use Vaping status: Never Used Substance Use Topics Alcohol use: Never Drug use: Never [5] Current Outpatient Medications: acetaminophen (Tylenol) 500 MG tablet, Take 1 tablet (500 mg) by mouth every 6 (six) hours., Disp: 100 tablet, Rfl: 0 ondansetron ODT (Zofran-ODT) 4 MG disintegrating tablet, Take 1 tablet (4 mg) by mouth every 6 (six) hours if needed for nausea or vomiting., Disp: 20 tablet, Rfl: 0 prochlorperazine (Compazine) 10 MG tablet, Take 1 tablet by mouth every 6 hours as needed for nausea or vomiting., Disp: , Rfl: aspirin 81 MG EC tablet, Take 1 tablet (81 mg) by mouth daily. (Patient not taking: Reported on 04/22/2025), Disp: , Rfl: Calcium Polycarbophil (Fiber) 625 MG tablet, Take 2 tablets by mouth in the morning and 2 tablets before bedtime. (Patient not taking: Reported on 04/22/2025), Disp: , Rfl: lisinopril 10 MG tablet, Take 1 tablet (10 mg) by mouth Daily. (Patient not taking: Reported on 04/22/2025), Disp: , Rfl: loperamide (Imodium A-D) 2 MG tablet, Take 1 tablet by mouth 4 times a day as needed for diarrhea. (Patient not taking: Reported on 04/22/2025), Disp: , Rfl: rivaroxaban (Xarelto) 10 MG tablet, Take 1 tablet (10 mg) by mouth 1 (one) time each day for 25 days. (Patient not taking: Reported on 04/22/2025), Disp: 25 tablet, Rfl: 0 rosuvastatin (Crestor) 20 MG tablet, Take 1 tablet (20 mg) by mouth every night. (Patient not taking: Reported on 04/22/2025), Disp: 30 tablet, Rfl: 5 Cosigned by Joi Stewart MD at 04/28/2025 2:17 PM EDT Associated attestation - Joi Stewart MD - 04/28/2025 2:17 PM EDT I saw and evaluated the patient with the resident/fellow. I discussed the case with the resident/fellow and agree with the findings and plan as documented. Attending Attestation Statement: I have personally seen and examined patient independently during today's visit. I have reviewed the patient's history, physical exam, and assessment and plan as documented in the note. I have edited the note where appropriate reflecting my evaluation and assessment of the patient; I concur with the physical exam above, I edited the exam and medical history and I repeated relevant portions of the exam. The medical decision making and plan have been generated by me and under my supervision. I agree with the assessment and plan as documented in the note. I personally discussed the plans outlined in this note at length with the patient. 04/22/25: CT CAP with contrast--no evidence of distant metastatic disease. No evidence of disease progression. 07/30/25: flex sig sched with Dr. Manoj Fowler Continue neoadjuvant FOLFOX with Dr. Yip in [place]. Will see her back here in August 2025 after flex sig with Dr. Fowler. documented in this encounter Plan of Treatment Upcoming Encounters Date Type Department Care Team (Late st Contact Info) Description 07/30/2025 1:00 PM EDT Appointment [facility] [address] [place] [address] Manoj Fowler MD [id number] [place] [address] 08/12/2025 1:30 PM EST Clinical Support [facility] [address] [place] [address] 08/12/2025 1:40 PM EST Office Visit [facility] Multidisciplinary Oncology Clinic [address] [place] [address] Joi Stewart MD 800 [facility] [address] [place] [address] 09/04/2025 10:00 AM EST Appointment [facility] [address] [place] [address] 09/04/2025 11:00 AM EST Office Visit [facility] Comprehensive Vascular Clinic [address] [place] [address] [address] [place] [address] Hilary Cordova MD [id number] [place] [address] Scheduled Orders Name Type Priority Associated Diagnoses Orde r Schedule CBC and Differential Lab Routine Rectal cancer (CMS/HCC) Expected: 08/12/2025, Expires: 10/24/2026 CEA, Serum Lab Routine Rectal cancer (CMS/HCC) Expected: 08/12/2025, Expires: 10/24/2026 Comprehensive Metabolic Panel, Plasma Lab Routine Rectal cancer (CMS/HCC) Expected: 08/12/2025, Expires: 10/24/2026 documented as of this encounter Goals Goal Patient Goal Type Associated Problems Recent Progress Patient-Stated? Author Autogenerat ed Goal Care Plan Autogenerated Problem Mady Geno Gilbert Chaz documented as of this encounter Visit [...] documented as of this encounter Care Teams Legal Billing Analyst Relationship Specialty Start Date End Date Natalia Wayne, YVONNE [address] [place] [address] PCP - General 12/10/24 documented as of this encounter
[2025-06-01] VITALS (21 sets, daily range): BP systolic 130–165; BP diastolic 64–101; PULSE 70–115; RESP 13–18; TEMP 36.5–36.8; O2SAT 95–99; BMI 20.3; BMI 20.8
--- OUTSIDE RECORDS SUMMARY | 2025-06-01 10:06 | XMS_ITS | Clinical Summary ---
Author Organization [facility] Address [address] [place] [address] Care Team Providers Care Machine Inspector Name Role Phone Unavailable Primary Care Provider [...]
--- OUTSIDE RECORDS SUMMARY | 2025-06-01 10:06 | XMS_ITS ---
Author Organization [facility] Address [address] [place] [address] Care Team Providers Care Major Case Detective Name Role Phone Natalia Wayne APRN Primary Care Provider [phone] Active Problems Problem Noted Date Diagnosed Date [...] 5-FU (Adrucil) infusion - for home use ([facility] supplied) CADD 100ML Therapy Complete Joi Steawrt MD 1 of 1 cycle started MitoMYcin + Fluorouracil Every 28 Days x 2 + XRT 12/17/19 25 12/13/2024 5-FU CHEMO INFUSION ([facility] SUPPLIED) CADD ORDERABLEmitoMYcin (Mutamycin) Other (See Comments) Joi Stewart MD Treatment not started Resolved Problems Problem Noted Date Diagnosed Date Resolved Date Large bowel obstruction 08/31/2024 120 01/2024
--- OUTSIDE RECORDS SUMMARY | 2025-06-01 10:06 | XMS_ITS | Encounter Summary ---
Author Organization [facility] Address [address] [place] [address] Care Team Providers Care Deep Submergence Vehicle Crewmember Name Role Phone Natalia Wayne YVONNE Primary Care Provider [phone] Encounter Details Date Type Department Care Team [...] PM EDT Appointment [facility] [address] [place] [address] Manoj Fowler MD [address] [facility] [address] [place] [address] 08/12/2025 1:30 PM EST Clinical Support [facility] Multidisciplinary Oncology Clinic [address] [place] [address] 08/12/2025 1:40 PM EST Office Visit [facility] Multidisciplinary Oncology Clinic [address] [place] [address] Joi Stewart MD 800 [facility] Tete Baker [facility] [address] [place] [address] 09/04/2025 10:00 AM EST Appointment [facility] Lab [address] [place] [address] Floor [address] [place] [address] 09/04/2025 11:00 AM EST Office Visit [facility] Comprehensive Vascular Clinic [address] [place] [address] [address] [place] [address] Hilary Cordova MD [address] [facility] [address] [place] [address] documented as of this encounter [...] documented as of this encounter Care Teams Deep Submergence Vehicle Crewmember Relationship Specialty Start Date End Date Natalia Wayne, YVONNE [address] [place] [address] PCP - General 12/10/24 documented as of this encounter
--- OUTSIDE RECORDS SUMMARY | 2025-06-01 10:06 | XMS_ITS | Clinical Summary ---
Author Organization [facility] Address [address] [place] [address] Care Team Providers Care Labor Gang Supervisor Name Role Phone Natalia Wayne YVONNE Primary Care Provider [phone] Allergies No known active allergies Medications rosuvastatin [...] EDT Office Visit [facility] [address] [place] [address] Joi Stewart MD Rectal cancer (CMS/HCC) (Primary Dx) 04/22/2025 2:50 PM EDT Clinical Support [facility] [address] [place] [address] Anika Joya, RN Rectal cancer (CMS/HCC) 04/22/2025 11:26 AM EDT - 04/22/2025 11:59 PM EDT Hospital Encounter [facility] CT [address]nd [place] [address] Rectal cancer (CMS/HCC) Discharge Disposition: Home or Self Care 04/22/2025 Travel 03/31/2025 Telephone [facility] [address] [place] [address] Manoj Fowler MD 03/31/2025 Telephone [facility] [address] [place] [address] Manoj Fowler MD Flexible Sigmoidoscopy from [...] time in the past 12 m [address] [place], were you homeless or living in a long term (including now)? No 09/02/2024 Utilities Answer Date Recorded In the past 12 months has th e electric, gas, oil, or water [employer] threatened to shut off services in your [...] PM EDT Appointment [facility] [address] [place] [address] Manoj Fowler MD [address] [facility] [address] [place] [address] 08/12/2025 1:30 PM EST Clinical Support [facility] Multidisciplinary Oncology Clinic [address] [place] [address] 08/12/2025 1:40 PM EST Office Visit [facility] Multidisciplinary Oncology Clinic [address] [place] [address] Joi Stewart MD 800 [facility] [address] [place] [address] 09/04/2025 10:00 AM EST Appointment [facility] Lab [address] [facility] 5th Floor [address] [place] [address] 09/04/2025 11:00 AM EST Office Visit [facility] [address] 5[address] Floor [address] [place] [address] Hilary Cordova MD [address] [facility] [address] [place] [address] Health Maintenance Due Date Last Done Comments [facility]-Bone Density Scan 1950 [facility]-Medicare Annual Wellness (AWV) 1949 [facility]-/Child/Adol SDOH Screenings 1949 [facility]-DTaP,Tdap,and Td Vaccine s (1 - Tdap) 1968 [facility]-Pneumococcal Vaccine: 50 + Years (1 of 2 - PCV) 1968 [facility]Y-Zoster Vaccines (1 of 2) 1968 CT Colonography 1994 FIT-DNA 1994 FIT 1994 FOBT 1994 Sigmoidoscopy 1994 [id number] Vaccine (2 - Cady risk series) 01/07/2021 [...] ult [facility] [address] [place] [address] * CEA, Serum (04/22/2025 3:09 PM EDT) CEA, Serum 1.9 <4.0 ng/mL 04/22/2025 5:10 PM EDT [facility] [...] [facility] [address] [place] [address] * (ABNORMAL) Comprehensive Metabolic Panel, Plasma (04/22/2025 [...] [facility] [address] [place] [address] * CT Abdomen Pelvis w IV Contrast [...] Total DLP (Dose-Length Product): 640.83 mGy.cm (accession [id number]), 640.83 mGy.cm (accession [id number]). Please note: The reported value represents the [...] Total DLP (Dose-Length Product): 640.83 mGy.cm (accession [id number]),640.83 mGy.cm (accession [id number]). Please note: The reported valuerepresents the total [...] Total DLP (Dose-Length Product): 640.83 mGy.cm (accession [id number]), 640.83 mGy.cm (accession [id number]). Please note: The reported value represents the [...] Total DLP (Dose-Length Product): 640.83 mGy.cm (accession [id number]),640.83 mGy.cm (accession [id number]). Please note: The reported valuerepresents the total [...] Antibody Negative Negative 08/31/2024 6:21 PM EST [facility] Blood Venous blood specimen / Unknown Venipuncture / Unknown 08/31/2024 5:22 PM EST 08/31/2024 5:40 PM EST us Meño Cano MD LAB BLOOD ORDERABLES Final Re sult [facility] [address] [place] [address] * Colonoscopy (07/22/2024 9:29 AM EDT) Anatomical [...] medications. Staff Staff Role Robert Bueno Endo Bell Person Shruti Gutierrez CRNA CRNA Gantt, Randolph Endo Bell Person Richard Borja MD Proceduralist Marcelina Arana Nurse [...] of bowel preparation was evaluated using the [place] Bowel Preparation Scale with scores of: right [...] [place] [id number] MEDICARE Member Subscriber Plan / Payer (Ef fective 2015-Present) Name:Lashae Sim Member ID:[id number] Relation to Subscriber:Self Name:Lashae Sim Subscriber ID:[id number] Payer ID:MEDICARE Group ID:Not on file Type:Medicare Address: [place] [phone] Advance Directives * Full Code (Latest Code Status on File) Date Activated Date Inactivated Comments 09/02/2024 9:48 PM 09/05/2024 12:25 PM Question Answer Comments Patient has decision-making capacity? Yes * Full Code Date Activated Date Inactivated Comments 08/31/2024 7:20 PM 09/02/2024 9:48 PM Question Answer Comments Patient has decision-making capacity? Yes Care Teams Labor Gang Supervisor Relationship Specialty Start Date End Date Natalia Wayne APRN [address] [place] [address] PCP - General 12/10/24
--- OUTSIDE RECORDS SUMMARY | 2025-06-01 10:06 | XMS_ITS | Encounter Summary ---
Author Organization Healthcare Address [address] [place] [address] Care Team Providers Care Gis Scientist Name Role Phone Pcp, No Primary Care Provider Natalia Hector APRN Primary Care Provider [phone] Encounter Details Date Type Department Care Team (Late st Contact Info) Description 11/14/2024 Orders Only External Location [address] [place] [address] Provider, External Social History Tobacco Use Types Packs/Day Years Used Date Smoking Tobacco: Every Day Cigarettes 0.5 50.7 Started: 1975 Smokeless Tobacco: Never Alcohol Use [...] PM EDT Appointment [facility] [address] [place] [id number] Manoj Fowler [facility] [address] [facility] [address] [place] [address] 08/12/2025 1:30 PM EST Clinical Support [facility] Multid[facility] Oncology [facility] [address] [place] [phone] 08/12/2025 1:40 PM EST Office Visit [facility] Mult[facility]isciplinary Oncology [facility] [address] [place] [address] Joi Stewart MD [address] [facility] Tete Baker [facility] [address] [place] [phone] 09/04/2025 10:00 AM EST Appointment [facility] [address] [facility] 5[address] Floor [address] [place] [address] 09/04/2025 11:00 AM EST Office Visit [facility] [address] [place] [address] Hilary Cordova MD [address] [place] [address] documented as of this [...] documented as of this encounter Care Teams Gis Scientist Relationship Specialty Start Date End Date Pcp, Mady [address] [place] [address] PCP - General Family Medicine 06/11/24 12/09/24 Natalia Wayne, YVONNE [address] [place] [address] PCP - General 12/10/24 documented as of this encounter
--- NOTE | 2025-06-01 10:09 | ECG_ITS ---
APPROVED REPORT Exam: Resting ECG HR:98 bpm ECG Measurements Heart Rate 98 AXES UT 217 P 84 QRSd 109 QRS -73 QT 365 T 93 QTc 420 Conclusion Normal sinus rhythm T wave inversions in lead I AVR and AVL. No ST elevation or ST depressions. Left axis deviation Electronically signed by : Elena Adair, 06/01/2025 15:00:30
--- NOTE | 2025-06-01 10:16 | HMH.EDGENADL ---
Discharge Plan Disposition Chief Complaint: Weakness Prescriptions Prescriptions: No Action leucovorin calcium 200 mg Recon Soln 700 mg IV DIRECTED Rx Instructions: Day 1 and Day 15 of a 28 day cycle oxaliplatin 100 mg/20 mL Solution 100 mg IV DIRECTED Rx Instructions: day 1 and day 15 of a 28 day cycle fluorouracil 500 mg/10 mL Solution 700 mg IV DIRECTED Rx Instructions: IVP administered day and day 15 of 28 day cycle. Pt then receives 46 hour cont 5 fu infusion of 5fu (4200mg iv) prochlorperazine maleate [Compazine] 10 mg tablet 10 mg PO Q6HP PRN (Reason: nausea and vomiting) ondansetron 8 mg tablet,disintegrating 8 mg PO DAILY Rx Instructions: take one tablet daily for 2 days following chemotherapy -- repeat each cycle Referrals Follow up/Referrals: Natalia Wayne APRN [Primary Care Provider, Medical] - See instructions Print Language Print Language: Indonesian Discharge ED Provider: Elena Adair General Adult HPI General Chief complaint: Weakness Stated complaint: not eating/drinking, weak, chemo pt Time Seen by Provider: 06/01/25 10:16 Mode of Arrival: Ambulatory Source of Information: Patient Description of Symptoms (Recalled from ER Triage Doc. by RN): pt presents to the er for weakness since monday, states she received chemo 2 weeks ago and receives her last dose of chemo this coming monday, states she sees dr espinal for colorectal cancer dx jun 2024, also reports dizziness, states she has had decreased intake, no appetite, leg cramps, and productive cough with clear sputum noted, pt reports increased shortness of breath as well, normal day to day activities have been more difficult to do the last few days with a lot breaks History of Present Illness HPI narrative: Patient is a 74-year-old with past medical history significant for colorectal cancer status post ileostomy currently on chemotherapy presents to the emergency department with generalized weakness cough decreased appetite and shortness of breath. Patient denies chest pain or congestion. Last chemo treatment was 2 weeks ago. Has been on 5-FU infusions for the last 2 months with current plan to have 1 more infusion and then reevaluation with her oncologist about next steps. Of note patient also notes that she has bleeding from her rectum last bleeding episode was 1 week ago and it looked like I had a miscarriage . Has had a decreased appetite with intermittent nausea. Ostomy output has been similar as the past. Has urinated twice in the last 24 hours. Has lost 18 pounds in the last 2 months. Notes mild nausea without vomiting. Air still coming from ostomy. Denies abdominal pain Related Data Home Medications ?Medication ?Instructions ?Recorded ?Confirmed ondansetron 8 mg disintegrating 8 mg PO DAILY 10/21/24 06/01/25 tablet prochlorperazine maleate 10 mg 10 mg PO Q6HP PRN nausea and 10/21/24 06/01/25 tablet (Compazine) vomiting fluorouracil 500 mg/10 mL 700 mg IV DIRECTED cancer 04/09/25 06/01/25 intravenous solution leucovorin calcium 200 mg solution 700 mg IV DIRECTED cancer 04/09/25 06/01/25 for injection oxaliplatin 100 mg/20 mL 100 mg IV DIRECTED cancer 04/09/25 06/01/25 intravenous solution Allergies Allergy/AdvReac Type Severity Reaction Status Date / Time No Known Allergies Allergy Verified 06/01/25 10:09 [facility] Disclaimer: The information contained in this section may have been updated after the patient was seen, as this information can be updated by other users. Medical History History of colon cancer Surgical History History of neck surgery History of colonoscopy Family History Sister Heart attack Mother Diabetes Other Family history of CVA Family history of brain aneurysm Social History Smoking Status: Current every day smoker alcohol intake: never substance use type: denies use current occupational status: unemployed and retired Travel in the last 8 weeks?: None marital status: Have you lived/traveled outside US in past 30 days?: No Contact w/someone who lives/traveled outside US past 30 days?: No Exposure to someone with infectious disease in past 14 days?: No Do you have a fever (greater than 100.4 F or 38 C)?: No Have you tested positive for COVID-19?: No Exposed to someone with COVID-19 in past 14 days?: No Do you have a sore throat?: No Do you have a cough?: No Do you have any weakness?: No Do you have any diarrhea?: No Are you experiencing any unusual bleeding?: No Do you have any muscle aches/pain?: No Do you have any abdominal pain?: No Are you experiencing loss of taste or smell?: No Other Medical History Have you received the Flu Vaccine for this season: No Have you received the Pneumonia Vaccine: No ROS Obtained: Yes All systems reviewed & no additional complaints except as documented Physical Exam General General appearance: alert and in no apparent distress Eye Eye exam: Present normal appearance and PERRL ENT ENT exam: Present mucous membranes dry Respiratory Respiratory exam: Present normal lung sounds bilaterally and other (wet, non productive cough); Absent respiratory distress Cardiovascular Cardiovascular exam: Present normal rhythm and tachycardia Abdominal Exam Abdominal exam: Present soft; Absent tenderness Comment: ileostomy approrpriate flushed to skin, pink Neurological Exam Neurological exam: Present alert and oriented X3 Medical Decision Making Medical Records Screening: Per USPSTF and CDC recommendations, given the prevalence of disease in our region, it is our hospital?s policy to screen for HIV and viral Hepatitis for all patients aged 18 and over and those with ongoing risk factors. Jonny Inquiry Pt receiving controlled substance: No Vital Signs: 06/01/25 09:55 06/01/25 10:00 06/01/25 10:03 Temperature 98.1 F Temperature Source Oral Pulse Rate 115 H 100 H Pulse Rate [Left Radial] 104 H Respiratory Rate 17 16 Blood Pressure 137/80 153/101 H Blood Pressure [Right Arm] 137/80 Blood Pressure Mean Blood Pressure Mean [Right Arm] 99 Blood Pressure Source [Right Arm] Automatic Cuff Blood Pressure Position [Right Arm] Sitting 02 Sat by Pulse Oximetry 98 99 98 Oxygen Delivery Method Room Air 06/01/25 10:15 06/01/25 10:30 06/01/25 10:45 Temperature Temperature Source Pulse Rate 96 H 105 H 89 Pulse Rate [Left Radial] Respiratory Rate 18 18 Blood Pressure 159/93 H 147/100 H 154/89 H Blood Pressure [Right Arm] Blood Pressure Mean 115 106 Blood Pressure Mean [Right Arm] Blood Pressure Source [Right Arm] Blood Pressure Position [Right Arm] 02 Sat by Pulse Oximetry 98 99 98 Oxygen Delivery Method Room Air Room Air 06/01/25 11:00 06/01/25 11:15 06/01/25 11:30 Temperature Temperature Source Pulse Rate 78 85 81 Pulse Rate [Left Radial] Respiratory Rate Blood Pressure 160/75 H 158/88 H 152/79 H Blood Pressure [Right Arm] Blood Pressure Mean Blood Pressure Mean [Right Arm] Blood Pressure Source [Right Arm] Blood Pressure Position [Right Arm] 02 Sat by Pulse Oximetry 95 98 97 Oxygen Delivery Method 06/01/25 11:46 06/01/25 12:00 06/01/25 12:15 Temperature Temperature Source Pulse Rate 85 81 79 Pulse Rate [Left Radial] Respiratory Rate Blood Pressure 164/87 H 148/68 H 130/64 Blood Pressure [Right Arm] Blood Pressure Mean Blood Pressure Mean [Right Arm] Blood Pressure Source [Right Arm] Blood Pressure Position [Right Arm] 02 Sat by Pulse Oximetry 97 96 98 Oxygen Delivery Method 06/01/25 12:30 06/01/25 12:45 06/01/25 13:00 Temperature Temperature Source Pulse Rate 78 77 79 Pulse Rate [Left Radial] Respiratory Rate Blood Pressure 149/77 H 130/74 152/79 H Blood Pressure [Right Arm] Blood Pressure Mean Blood Pressure Mean [Right Arm] Blood Pressure Source [Right Arm] Blood Pressure Position [Right Arm] 02 Sat by Pulse Oximetry 96 96 97 Oxygen Delivery Method 06/01/25 13:25 06/01/25 13:30 Temperature Temperature Source Pulse Rate 93 H 85 Pulse Rate [Left Radial] Respiratory Rate 16 18 Blood Pressure 147/82 H 160/81 H Blood Pressure [Right Arm] Blood Pressure Mean Blood Pressure Mean [Right Arm] Blood Pressure Source [Right Arm] Blood Pressure Position [Right Arm] 02 Sat by Pulse Oximetry 98 98 Oxygen Delivery Method Lab Data Lab Results 06/01/25 10:23: WBC 6.1, RBC 3.97 L, Hgb 13.7, Hct 38.6, MCV 97.2, MCH 34.5 H, MCHC 35.5 H, RDW 15.6, Plt Count 157, MPV 10.7 H, Neut % (Auto) 73.5, Lymph % (Auto) 14.4, Garrett % (Auto) 10.0 H, Eos % (Auto) 1.1, Baso % (Auto) 0.7, Neut # (Auto) 4.5, Lymph # (Auto) 0.9, Garrett # (Auto) 0.6, Eos # (Auto) 0.1, Baso # (Auto) 0.0, Sodium 133 L, Potassium 3.3 L, Chloride 101, Carbon Dioxide 25, Anion Gap 10.3, BUN 28 H, Creatinine 1.90 H, Estimated Creat Clear 24, Estimated GFR 26 L, Est GFR ( Amer) 31 L, Glucose 134 H, Calcium 10.3 H, Magnesium 1.5 L, Total Bilirubin 0.7, AST 53 H, ALT 36, Alkaline Phosphatase 84, Troponin I 0.01, C-Reactive Protein 1.3, Total Protein 7.4, Albumin 4.4, Globulin 3.0, Albumin/Globulin Ratio 1.5, Lipase 476 H 06/01/25 10:26: Chlamy pneumoniae PCR Not detected, Adenovirus (PCR) Not detected, B. pertussis DNA (PCR) Not detected, Coronavirus OC43 (PCR) Not detected, Coronavirus HKU1 (PCR) Not detected, Coronavirus 229E (PCR) Not detected, SARS-CoV-2 (PCR) Not detected, Coronavirus NL63 (PCR) Not detected, Human Metapneumovir PCR Not detected, Influenza A (H1) PCR Not detected, Influ A (H1N1/09) PCR Not detected, Influenza A (H3) PCR Not detected, Influenza Type A (PCR) Not detected, Influenza Type B (PCR) Not detected, M. pneumoniae (PCR) Not detected, Parainfluenza 1 (PCR) Not detected, Parainfluenza 2 (PCR) Not detected, Parainfluenza 3 (PCR) Not detected, Parainfluenza 4 (PCR) Not detected, RSV (PCR) Not detected, Entero/Rhino (PCR) Not detected 06/01/25 10:27: VBG Lactic Acid 3.2 H 06/01/25 10:23 06/01/25 10:23 Orders (Tests/Meds): ED MEDICATIONS Discontinued Medications Generic Name Dose Route Start Last Admin Trade Name Freq PRN Reason Stop Dose Admin Lactated Ringer's 1,000 mls @ 999 mls/hr 06/01/25 10:27 06/01/25 11:35 Lactated Ringer's 1000 Ml Bag IV 06/01/25 11:27 Infused .Q1H1M ONE Infusion Magnesium Sulfate 2 gm in 50 mls @ 50 mls/hr 06/01/25 12:41 06/01/25 13:10 Magnesium Sulfate 2gm/50ml Premix IV 06/01/25 13:40 50 mls/hr ONCE ONE Administration Potassium Chloride 40 meq 06/01/25 12:41 06/01/25 13:10 Potassium Chloride 20meq Tab PO 06/01/25 12:42 40 meq ONCE ONE Administration ORDERS Category Date Time Status CXR 2 view (NOT portable) [XR chest 2V] Stat Exams 06/01/25 12:41 Completed C-Reactive Protein Stat Lab 06/01/25 10:23 Completed CMP [Comprehensive Metabolic Panel] Stat Lab 06/01/25 10:23 Completed Calcium, Ionized Stat Lab 06/01/25 10:23 Received Complete Blood Count Auto Diff Stat Lab 06/01/25 10:23 Completed Full Resp Panel w/COVID ([facility]) Routine Lab 06/01/25 10:26 Completed Lactate Venous Stat Lab 06/01/25 10:27 Completed Lipase Stat Lab 06/01/25 10:23 Completed Magnesium Stat Lab 06/01/25 10:23 Completed Troponin I Q3H Lab 06/01/25 13:22 Received Troponin I Q3H Lab 06/01/25 16:45 Ordered Troponin I Stat Lab 06/01/25 10:23 Completed UA/RFX Microscopic Stat Lab 06/01/25 10:27 Ordered Blood Culture Stat Micro 06/01/25 10:42 Received Medical Decision Narrative: In summary, this 74-year-old female presents to the emergency department today with fatigue weakness decreased appetite. On initial evaluation patient is tachycardic normotensive afebrile saturating appropriately on room air. Differential diagnosis includes but is not limited to pneumonia PE ACS neutropenic fever acute blood loss anemia pancreatitis urinary tract infection bowel obstruction progression of malignancy, dehydration secondary to chemotherapy LENA electrolyte derangement, bacteremia viral syndrome. Based on these concerns, I ordered CBC CMP CRP nasopharyngeal respiratory panel troponin lactate lipase CT PE, CT abdomen pelvis with IV contrast UA EKG. ECG personally interpreted demonstrates sinus rhythm prolonged MA interval no ST elevation ST depression or T wave inversions concerning for ischemia Patient received lactated Ringer's for treatment, 2 g of magnesium and 40 mill equivalents of potassium. Offered antiemetics but declined at this time. Labs personally reviewed demonstrate elevated lactate, elevated lipase but not 3 times the upper limit of normal, no significant anemia, mild LENA, hypomagnesemia and hypokalemia. Due to LENA and lower suspicion of obstruction or pancreatitis based off the physical exam will elect to not perform CT abdomen pelvis at this time. Patient is not hypoxic or short of breath so lower suspicion for PE but is still in differential we will avoid contrast bolus for CT PE at this time. Will continue to treat for dehydration. XR personally interpreted demonstrates no focal consolidation. I had an interactive discussion with hospitalist agreeing to admit for dehydration. Critical Care Critical Care Time Critical Care Time: No
[2025-06-01] MEDS: LACTATED RINGERS 1000ML 1,000 ML 999 ML IV (10:34)
[2025-06-01 10:38] LABS: Hematocrit 38.6 % (37.0-47.0); Hemoglobin 13.7 g/dL (12.2-16.2); Immature Granulocytes % 0.3 %; Mean Corpuscular HGB Conc 35.5 g/dL (31.8-35.4); Mean Corpuscular Hemoglobin 34.5 pg (27.0-31.2); Mean Corpuscular Volume 97.2 fl (81-99); Nucleated Red Blood Cells % 0 %; Platelet Count 157 K/mm3 (142-424); Red Blood Count 3.97 M/mm3 (4.20-5.40); Red Cell Distribution Width-SD 54.7 fL; White Blood Count 6.1 K/mm3 (4.8-10.8)
[2025-06-01 10:38] LABS: Adenovirus,PCR Not Detected (NotDetected); Chlamydophila Pneumoniae, PCR Not Detected (NotDetected); Coronavirus 19, PCR Not Detected (NotDetected); Coronovirus HKU1,PCR Not Detected (NotDetected); Influenza A, PCR Not Detected (NotDetected); Influenza AH1, 2009 Not Detected (NotDetected); Influenza AH1, PCR Not Detected (NotDetected); Influenza AH3,PCR Not Detected (NotDetected); Influenza B, PCR Not Detected (NotDetected); Mycoplasma Pneumoniae, PCR Not Detected (NotDetected); Parainfluenza 1, PCR Not Detected (NotDetected); Parainfluenza 2, PCR Not Detected (NotDetected); Parainfluenza 3, PCR Not Detected (NotDetected); Parainfluenza 4, PCR Not Detected (NotDetected)
--- NOTE | 2025-06-01 10:38 | PC.NURSE ---
rt aware of lactic venous
--- NOTE | 2025-06-01 10:38 | PC.NURSE ---
provided pt with a warm blanket. at bedside
[2025-06-01 10:49] LABS: Lactate Venous 3.2 mmol/L (0.4-2.0)
[2025-06-01 11:02] LABS: Lipase 476 U/L (23-300)
[2025-06-01 11:08] LABS: C-Reactive Protein 1.3 mg/L (0-4)
[2025-06-01 12:03] LABS: Troponin I 0.01 ng/ml (0.00-0.034)
[2025-06-01 12:30] LABS: Albumin Level 4.4 g/dl (3.5-5.0); Chloride 101 mmol/L (98-107); Sodium 133 mmol/L (136-145)
[2025-06-01 12:31] LABS: Potassium 3.3 mmoL/L (3.5-5.1)
[2025-06-01 12:33] LABS: Alanine Aminotransferase 36 U/L (12-78); Anion Gap 10.3 mEq/L (5-15); Aspartate Amino Transferase 53 U/L (14-36); Blood Urea Nitrogen 28 mg/dl (7-17); Carbon Dioxide 25 mmol/L (22.0-30.0); Creatinine Clearance Estimated 24 mL/min (50-200); Creatinine,Serum 1.90 mg/dl (0.52-1.04); Estimated Glomerular Filt Rate 26 ml/min (>60); GFR (African American) 31 ML/MIN (>60); Magnesium 1.5 mg/dl (1.6-2.3)
[2025-06-01 12:34] LABS: Albumin/Globulin Ratio 1.5 (1.1-1.8); Alkaline Phosphatase 84 U/L (38-126); Bilirubin,Total 0.7 mg/dl (0.2-1.3); Calcium 10.3 mg/dl (8.4-10.2); Globulin 3.0 g/dL (1.3-3.2); Glucose 134 mg/dl (74-100); Total Protein,Serum 7.4 g/dl (6.3-8.2)
--- NOTE | 2025-06-01 12:41 | XR_ITS ---
PROCEDURE INFORMATION: Exam: XR Chest Exam date and time: 06/01/2025 1:02 PM Age: 74 years old Clinical indication: Shortness of breath; Additional info: SOA TECHNIQUE: Imaging protocol: Radiologic exam of the chest. Views: 2 views. Total images: 2 COMPARISON: CT CHEST WO CON 10/21/2024 1:14 PM FINDINGS: Tubes, catheters and devices: Left-sided Port-A-Cath is in place with the tip overlying the superior vena cava. Lungs: No consolidation. Pleural spaces: No pleural effusion. No pneumothorax. Heart/Mediastinum: No cardiomegaly. Vasculature: Mild atherosclerotic disease. Bones/joints: The thoracic spine demonstrates mild degenerative changes at multiple levels. IMPRESSION: No acute cardiopulmonary abnormalities.
[2025-06-01] MEDS: POTASSIUM CHLORIDE 20MEQ TAB 40 MEQ PO (13:10)
[2025-06-01] MEDS: MAGNESIUM SULFATE IN WATER 2 GM/50 ML PIGGYBACK IV (13:10)
--- NOTE | 2025-06-01 13:13 | PC.NURSE ---
pt transported to radiology via wheelchair
--- NOTE | 2025-06-01 13:18 | PC.NURSE ---
pt returned from radiology
--- NOTE | 2025-06-01 13:44 | PC.NURSE ---
notified house of admission
--- NOTE | 2025-06-01 13:54 | HMH.PHAINT1 ---
Pharmacy Intervention Comments: MEDICATION RECONCILIATION COMPLETED ON PATIENT USING EXTERNAL FILL HISTORY FROM PHARMACY. -FRANNIE ASENCIO, ROSA MD
[2025-06-01 14:04] LABS: Troponin I 0.01 ng/ml (0.00-0.034)
--- NOTE | 2025-06-01 14:05 | PC.NURSE ---
called report to Thelma LAWRENCE
--- NOTE | 2025-06-01 14:14 | PC.NURSE ---
arrived by w/c from ED
[2025-06-01 14:50] LABS: Reflex Lactic Add Lactic Reflex
--- NOTE | 2025-06-01 16:08 | PC.NURSE ---
new admission this shift. pt has not complained of any n/v/abd pain. pt able to ambulate without experiencing dizziness. magnesium and potassium replaced in the ER. port remains patent to L chest. at bedside. no needs at this time. call light within reach.
[2025-06-01 16:56] LABS: Lactic Acid Follow Up (RFLX 1) 2.2 mmol/L (0.7-2.1)
[2025-06-01 17:03] LABS: Troponin I < 0.01 ng/ml (0.00-0.034)
--- NOTE | 2025-06-01 18:31 | EXP.HP ---
History of Present Illness *Admission Date: 06/01/25 *Reason for visit:: Decreased appetite *History of present illness: Lashae Wyman is a 73-year-old female with a medical history significant for metastatic rectal adenocarcinoma (s/p diverting ileostomy due to distal obstruction), hypertension, hyperlipidemia who presents with decreased appetite and increased ileostomy output over the past few days. Patient had infusion of chemotherapy 2 weeks ago, started feeling unwell since this past Monday. She states she is not able to eat or drink much due to decreased appetite, and is having slightly increased ileostomy output. Denies fever/chills, chest pain, shortness of breath, abdominal pain. Workup in ED significant for creatinine 1.9 (baseline 1.5), lactic acid 3.2, magnesium 1.5, lipase 476. Respiratory panel normal. Patient was given 1 L LR bolus, but continues to have feel unwell and not able to eat. Given the findings, ED provider discussed case with me and I decided to admit patient for decreased p.o. intake, LENA, hypomagnesemia. [facility] Disclaimer: The information contained in this section may have been updated after the patient was seen, as this information can be updated by other users. Medical History History of colon cancer Surgical History History of neck surgery History of colonoscopy Family History Sister Heart attack Mother Diabetes Other Family history of CVA Family history of brain aneurysm Social History Smoking Status: Current every day smoker alcohol intake: never substance use type: denies use current occupational status: unemployed and retired Travel in the last 8 weeks?: None marital status: Have you lived/traveled outside [place] in past 30 days?: No Contact w/someone who lives/traveled outside [place] past 30 days?: No Exposure to someone with infectious disease in past 14 days?: No Do you have a fever (greater than 100.4 F or 38 C)?: No Have you tested positive for COVID-19?: No Exposed to someone with COVID-19 in past 14 days?: No Do you have a sore throat?: No Do you have a cough?: No Do you have any weakness?: No Do you have any diarrhea?: No Are you experiencing any unusual bleeding?: No Do you have any muscle aches/pain?: No Do you have any abdominal pain?: No Are you experiencing loss of taste or smell?: No Other Medical History Have you received the Flu Vaccine for this season: Yes Have you received the Pneumonia Vaccine: Yes Meds Home Medications and Allergies Home Medications ?Medication ?Instructions ?Recorded ?Confirmed ?Type ondansetron 8 mg disintegrating 8 mg PO DIRECTED 10/21/24 06/01/25 History tablet prochlorperazine maleate 10 mg 10 mg PO Q6HP PRN nausea and 10/21/24 06/01/25 History tablet (Compazine) vomiting fluorouracil 500 mg/10 mL 700 mg IV DIRECTED cancer 04/09/25 06/01/25 History intravenous solution leucovorin calcium 200 mg solution 700 mg IV DIRECTED cancer 04/09/25 06/01/25 History for injection oxaliplatin 100 mg/20 mL 100 mg IV DIRECTED cancer 04/09/25 06/01/25 History intravenous solution New Prescriptions to Start Prescriptions: Allergies Allergy/AdvReac Type Severity Reaction Status Date / Time No Known Allergies Allergy Verified 06/01/25 10:09 Exam Data for Last 24 hours Vital signs and Labs for Last 24 Hours: Temp Pulse Resp BP Pulse Ox O2 Del Method 98.2 F 70 16 165/72 H 97 Room Air 06/01/25 14:12 06/01/25 14:12 06/01/25 14:12 06/01/25 14:12 06/01/25 14:11 06/01/25 17:00 Laboratory Results - last 24 hr 06/01/25 10:23: WBC 6.1, RBC 3.97 L, Hgb 13.7, Hct 38.6, MCV 97.2, MCH 34.5 H, MCHC 35.5 H, RDW 15.6, Plt Count 157, MPV 10.7 H, Neut % (Auto) 73.5, Lymph % (Auto) 14.4, Kaufman % (Auto) 10.0 H, Eos % (Auto) 1.1, Baso % (Auto) 0.7, Neut # (Auto) 4.5, Lymph # (Auto) 0.9, Kaufman # (Auto) 0.6, Eos # (Auto) 0.1, Baso # (Auto) 0.0, Sodium 133 L, Potassium 3.3 L, Chloride 101, Carbon Dioxide 25, Anion Gap 10.3, BUN 28 H, Creatinine 1.90 H, Estimated Creat Clear 24, Estimated GFR 26 L, Est GFR ( Amer) 31 L, Glucose 134 H, Calcium 10.3 H, Magnesium 1.5 L, Total Bilirubin 0.7, AST 53 H, ALT 36, Alkaline Phosphatase 84, Troponin I 0.01, C-Reactive Protein 1.3, Total Protein 7.4, Albumin 4.4, Globulin 3.0, Albumin/Globulin Ratio 1.5, Lipase 476 H 06/01/25 10:26: Chlamy pneumoniae PCR Not detected, Adenovirus (PCR) Not detected, B. pertussis DNA (PCR) Not detected, Coronavirus OC43 (PCR) Not detected, Coronavirus HKU1 (PCR) Not detected, Coronavirus 229E (PCR) Not detected, SARS-CoV-2 (PCR) Not detected, Coronavirus NL63 (PCR) Not detected, Human Metapneumovir PCR Not detected, Influenza A (H1) PCR Not detected, Influ A (H1N1/09) PCR Not detected, Influenza A (H3) PCR Not detected, Influenza Type A (PCR) Not detected, Influenza Type B (PCR) Not detected, M. pneumoniae (PCR) Not detected, Parainfluenza 1 (PCR) Not detected, Parainfluenza 2 (PCR) Not detected, Parainfluenza 3 (PCR) Not detected, Parainfluenza 4 (PCR) Not detected, RSV (PCR) Not detected, Entero/Rhino (PCR) Not detected 06/01/25 10:27: VBG Lactic Acid 3.2 H 06/01/25 13:22: Troponin I 0.01 06/01/25 16:30: Lactate 2.2 H, Troponin I < 0.01 I & O for Last 24 hours: Intake & Output 05/29/25 05/30/25 05/31/25 06/01/25 23:59 23:59 23:59 23:59 Intake Total 1410 / 1410 Output Total 150 / 150 Balance 1260 / 1260 Weight 60.328 kg Constitutional Constitutional: no acute distress *Routine HEENT Exam Head: Present normocephalic Eye: Present EOMI and PERRL ENT: Present mucous membranes moist *Routine Neck Exam Neck: Present supple; Absent lymphadenopathy *Routine Respiratory Exam Respiratory: Present CTA bilaterally *Routine Cardiovascular Exam Cardiovascular: Present RRR *Routine Abdominal Exam Abdominal: Present soft and normoactive bowel sounds; Absent tenderness Comments: Ileostomy site viable with no signs of infection. Green, foul-smelling, watery stool output in the ostomy bag. *Routine Rectal Exam Rectal:: deferred *Routine Genitalia Exam Genitalia:: deferred *Routine Extremities Exam Extremities: Absent cyanosis, clubbing or edema *Routine Skin Exam Skin: Present warm; Absent rash *Routine Neurological Exam Neurological: Present alert and oriented X3 Assessment and Plan *Assessment and plan (1) Rectal carcinoma: Status: Acute Category: Medical Code(s): C20 - Malignant neoplasm of rectum Plan Lashae Wyman is a 73-year-old female with a medical history significant for metastatic rectal adenocarcinoma (s/p diverting ileostomy due to distal obstruction), hypertension, hyperlipidemia who presents with decreased appetite and increased ileostomy output over the past few days. Patient had infusion of chemotherapy 2 weeks ago, started feeling unwell since this past Monday. She states she is not able to eat or drink much due to decreased appetite, and is having slightly increased ileostomy output. Denies fever/chills, chest pain, shortness of breath, abdominal pain. Workup in ED significant for creatinine 1.9 (baseline 1.5), lactic acid 3.2, magnesium 1.5, lipase 476. Respiratory panel normal. Patient was given 1 L LR bolus, but continues to have feel unwell and not able to eat. Given the findings, ED provider discussed case with me and I decided to admit patient for decreased p.o. intake, LENA, hypomagnesemia. #Decreased p.o. intake #Increased ileostomy output #LENA on CKD 3A #Hypomagnesemia ? Several day onset of decreased p.o. intake, slightly increased ileostomy output. Last chemoinfusion 2 weeks ago. Similarly presented in October. ? Initial creatinine 1.9, baseline 1.5. Lactic acid 3.2. Magnesium 1.5. ? Patient's appetite seemed better later this afternoon, tolerating p.o. intake better. Likely related to last chemoinfusion. ? Started IV LR at 75 L/h. ? Follow-up phosphorus level. ? Follow-up stool PCR. ? Follow-up morning CBC, CMP, magnesium. #Elevated lipase ? Lipase 476 on admission, consistent with chronic levels. However, no epigastric tenderness or CT evidence of pancreatitis. Chronic medical conditions: #Metastatic rectal adenocarcinoma #S/p diverting ileostomy due to distal obstruction at 09/02/24 ? Follows with Dr. Yip. Receiving chemotherapy, next therapy scheduled for 06/04/2025. - Ileostomy site without signs of infection. #Hypertension ? Hold home lisinopril due to LENA. #Hyperlipidemia ? Resume once reconciled. #Current tobacco smoker ? Nicotine patch as needed. DNR/DNI DVT prophylaxis: Lovenox 30 mg
[2025-06-01 18:40] LABS: Reflex Lactic (2 hrs) Add Lactic Reflex
[2025-06-01 18:50] LABS: Adenovirus F 40/41, stool Not Detected (NotDetected); Clostridium Difficile A/B, PCR Not Detected (NotDetected); Cyclospora Cayetanesis Not Detected (NotDetected); Plesimonas Shigalloides, PCR Not Detected (NotDetected); Salmonella, PCR Not Detected (NotDetected); Shiga-like toxin E coli Not Detected (NotDetected); Shigella Enterovasive E coli Not Detected (NotDetected); Vibrio, PCR Not Detected (NotDetected); Yersinia Entercolitica, PCR Not Detected (NotDetected)
[2025-06-01 19:58] LABS: Lactic Acid Follow up (RFLX 2) 1.6 mmol/L (0.7-2.1); Phosphorous 3.3 mg/dl (2.5-4.5)
[2025-06-01 20:10] LABS: Bilirubin,Urine Negative (Negative); Color,Urine YELLOW (Yellow); Glucose,Urine (UA) Negative (Negative); Ketones,Urine Negative (Negative); Leukocyte Esterase,Urine TRACE (Negative); PH,Urine 6.0 (5.0-8.5); Protein,Urine 1+ (Negative); Specific Gravity, Urine >= 1.030 (1.005-1.030); Urobilinogen,Urine 0.2 EU/dl (0.2)
[2025-06-01] MEDS: LACTATED RINGERS 1000ML 1,000 ML 75 ML IV (20:10)
[2025-06-01 20:12] LABS: Microscopic, Urine URINE MICROSCOPIC (MICROSCOPIC)
[2025-06-01 20:35] LABS: Bacteria,Urine 3+ /lpf; Squamous Epithelial Cell,Urine Occasional #/hpf (0-5)
--- NOTE | 2025-06-02 03:40 | PC.NURSE ---
Addendum entered by Yocasta Durham RN 06/02/25 06:46: Patient stated that she feels much better this morning. Original Note: Patient is alert and oriented x4. She was observed to be resting in bed with eyes closed, respirations even and unlabored on room air, and no apparent distress throughout the majority of the night. She reported having complaints of still feeling tired and weak upon assessment. Endorses poor appetite. Ostomy located to mid/right abdominal quadrant (patient empties ostomy independently, with assistance from staff as needed); stoma appearance beefy red. Abdomen soft, non-tender, and flat. Low fiber diet initiated, previously tolerated full liquids without any nausea/vomiting. Diarrhea panel resulted (-). Lactated Ringers infusing at 75 mL/hr through port access to the left chest. Diminished lungs heard upon auscultation. Patient reports having an intermittent, productive cough with clear sputum; no sputum or coughing was observed during this shift. Electrolyte replacement protocol. Patient ambulates with standby assistance as needed due to weakness. At this time, the patient is resting in bed without any further complaints. No new needs thus far. Call light within reach.
[2025-06-02 04:00] VITALS: BP 143/76; PULSE 79; RESP 16; TEMP 36.6; O2SAT 96; BMI 21.2
[2025-06-02 07:25] LABS: Nucleated Red Blood Cells % 0 %; Platelet Count 147 K/mm3 (142-424)
[2025-06-02 07:31] LABS: Hematocrit 32.8 % (37.0-47.0); Immature Granulocytes % 0 %; Mean Corpuscular HGB Conc 35.7 g/dL (31.8-35.4); Mean Corpuscular Hemoglobin 34.6 pg (27.0-31.2); Mean Corpuscular Volume 97.0 fl (81-99); Red Blood Count 3.38 M/mm3 (4.20-5.40); Red Cell Distribution Width-SD 54.4 fL; White Blood Count 4.1 K/mm3 (4.8-10.8)
[2025-06-02 07:35] VITALS: BP 142/73; PULSE 83; RESP 16; TEMP 36.6; O2SAT 96
[2025-06-02 07:36] LABS: Hemoglobin 11.7 g/dL (12.2-16.2)
[2025-06-02 07:37] LABS: Alanine Aminotransferase 29 U/L (12-78); Albumin Level 3.6 g/dl (3.5-5.0); Albumin/Globulin Ratio 1.3 (1.1-1.8); Alkaline Phosphatase 78 U/L (38-126); Anion Gap 9.5 mEq/L (5-15); Aspartate Amino Transferase 40 U/L (14-36); Bilirubin,Total 0.9 mg/dl (0.2-1.3); Blood Urea Nitrogen 21 mg/dl (7-17); Calcium 9.4 mg/dl (8.4-10.2); Carbon Dioxide 27 mmol/L (22.0-30.0); Chloride 100 mmol/L (98-107); Creatinine Clearance Estimated 28 mL/min (50-200); Creatinine,Serum 1.70 mg/dl (0.52-1.04); Estimated Glomerular Filt Rate 29 ml/min (>60); GFR (African American) 35 ML/MIN (>60); Globulin 2.7 g/dL (1.3-3.2); Glucose 89 mg/dl (74-100); Magnesium 1.7 mg/dl (1.6-2.3); Potassium 3.5 mmoL/L (3.5-5.1); Sodium 133 mmol/L (136-145); Total Protein,Serum 6.3 g/dl (6.3-8.2)
[2025-06-02] MEDS: ONDANSETRON 4MG/2ML VIAL 4 MG IV (08:31)
--- NOTE | 2025-06-02 10:19 | P.DS_ITS ---
General Admission date:: 06/01/25 Discharge date: 06/02/25 HPI HPI HPI: Lashae Wyman is a 73-year-old female with a medical history significant for metastatic rectal adenocarcinoma (s/p diverting ileostomy due to distal obstruction), hypertension, hyperlipidemia who presents with decreased appetite and increased ileostomy output over the past few days. Patient had infusion of chemotherapy 2 weeks ago, started feeling unwell since this past Monday. She states she is not able to eat or drink much due to decreased appetite, and is having slightly increased ileostomy output. Denies fever/chills, chest pain, shortness of breath, abdominal pain. Workup in ED significant for creatinine 1.9 (baseline 1.5), lactic acid 3.2, magnesium 1.5, lipase 476. Respiratory panel normal. Patient was given 1 L LR bolus, but continues to have feel unwell and not able to eat. Given the findings, ED provider discussed case with me and I decided to admit patient for decreased p.o. intake, LENA, hypomagnesemia. Hospital Course Hospital Course Hospital Course: Lashae Wyman is a 74-year-old female with a medical history significant for metastatic rectal adenocarcinoma (s/p diverting ileostomy due to distal obstruction), current tobacco smoker, hypertension, hyperlipidemia who presents with decreased appetite and increased ileostomy output over the past few days. Patient had infusion of chemotherapy 2 weeks ago, started feeling unwell since this past Monday. She states she is not able to eat or drink much due to decreased appetite, and is having slightly increased ileostomy output. Denies fever/chills, chest pain, shortness of breath, abdominal pain. Workup in ED significant for creatinine 1.9 (baseline 1.5), lactic acid 3.2, magnesium 1.5, lipase 476. Respiratory panel normal. Patient was given 1 L LR bolus, but continued to feel unwell. Admitted for fluid rehydration and monitoring with serial labs. Kidney function improved by morning back to her baseline. Tolerating p.o. intake. Overall feeling better. Stable discharge home with continued management as an outpatient. Problems addressed as follows: #Decreased p.o. intake #Increased ileostomy output #LENA # CKD 4, present on admission (disregard comment of CKD 3) #Hypomagnesemia ? Several day onset of decreased p.o. intake, slightly increased ileostomy output. Last chemoinfusion 2 weeks ago. Similarly presented in October. Initial creatinine 1.9, baseline 1.5. Lactic acid 3.2. Magnesium 1.5. Electrolytes improved by morning. Potassium 3.5, magnesium 1.7, kidney function improving with creatinine 1.7. White count normal at 4.1. Tolerating p.o. intake. Stable discharge home. Follow-up with primary care and oncology as an outpatient. #Elevated lipase: Lipase 476 on admission, consistent with chronic levels. However, no epigastric tenderness or CT evidence of pancreatitis. Chronic medical conditions: #Metastatic rectal adenocarcinoma #S/p diverting ileostomy due to distal obstruction at 09/02/24 ? Follows with Dr. Yip. Receiving chemotherapy, next therapy scheduled for 06/04/2025. Ileostomy site without signs of infection. #Hypertension: Well-controlled. Not on any meds at this time. #Current tobacco smoker: Nicotine patch as needed during admission. Counseled on cessation. Exam Data for Last 24 hours Vital signs and Labs for Last 24 Hours: Temp Pulse Resp BP Pulse Ox O2 Del Method 97.9 F 83 16 142/73 H 96 Room Air 06/02/25 07:35 06/02/25 07:35 06/02/25 07:35 06/02/25 07:35 06/02/25 07:35 06/02/25 09:00 Laboratory Results - last 24 hr 06/01/25 10:23: WBC 6.1, RBC 3.97 L, Hgb 13.7, Hct 38.6, MCV 97.2, MCH 34.5 H, MCHC 35.5 H, RDW 15.6, Plt Count 157, MPV 10.7 H, Neut % (Auto) 73.5, Lymph % (Auto) 14.4, Monroe % (Auto) 10.0 H, Eos % (Auto) 1.1, Baso % (Auto) 0.7, Neut # (Auto) 4.5, Lymph # (Auto) 0.9, Monroe # (Auto) 0.6, Eos # (Auto) 0.1, Baso # (Auto) 0.0, Sodium 133 L, Potassium 3.3 L, Chloride 101, Carbon Dioxide 25, Anion Gap 10.3, BUN 28 H, Creatinine 1.90 H, Estimated Creat Clear 24, Estimated GFR 26 L, Est GFR ([facility] Am) 31 L, Glucose 134 H, Calcium 10.3 H, Magnesium 1.5 L, Total Bilirubin 0.7, AST 53 H, ALT 36, Alkaline Phosphatase 84, Troponin I 0.01, C-Reactive Protein 1.3, Total Protein 7.4, Albumin 4.4, Globulin 3.0, Albumin/Globulin Ratio 1.5, Lipase 476 H 06/01/25 10:26: Chlamy pneumoniae PCR Not detected, Adenovirus (PCR) Not detected, B. pertussis DNA (PCR) Not detected, Coronavirus OC43 (PCR) Not detected, Coronavirus HKU1 (PCR) Not detected, Coronavirus 229E (PCR) Not detected, SARS-CoV-2 (PCR) Not detected, Coronavirus NL63 (PCR) Not detected, Human Metapneumovir PCR Not detected, Influenza A (H1) PCR Not detected, Influ A (H1N1/09) PCR Not detected, Influenza A (H3) PCR Not detected, Influenza Type A (PCR) Not detected, Influenza Type B (PCR) Not detected, M. pneumoniae (PCR) Not detected, Parainfluenza 1 (PCR) Not detected, Parainfluenza 2 (PCR) Not detected, Parainfluenza 3 (PCR) Not detected, Parainfluenza 4 (PCR) Not detected, RSV (PCR) Not detected, Entero/Rhino (PCR) Not detected 06/01/25 10:27: VBG Lactic Acid 3.2 H 06/01/25 13:22: Troponin I 0.01 06/01/25 16:30: Lactate 2.2 H, Troponin I < 0.01 06/01/25 18:42: Stl C. cayetanensis PCR Not detected, Stool Rotavirus (PCR) Not detected, Stl Adenov F 40/41 PCR Not detected, Stool Astrovirus (PCR) Not detected, Stool Campylobacter PCR Not detected, Stl C.difficile Tox PCR Not detected, Stool Cryptosporidium PCR Not detected, Stl E.coli Shiga Tox PCR Not detected, Stool E coli O157 PCR Not detected, Stl Enterotoxigenic E PCR Not detected, Stool EPEC (PCR) Not detected, Stool EAEC (PCR) Not detected, Stl E. histolytica PCR Not detected, Stool Giardia Lamblia PCR Not detected, Stool Salmonella PCR Not detected, Stool Sapovirus (PCR) Not detected, Stl P. shigelloides PCR Not detected, Stl Shigella/EIEC PCR Not detected, St Y.enteroc olitica PCR Not detected, Stool Vibrio (PCR) Not detected, Stl Vibrio cholerae PCR Not detected, Stl Norovirus GI/GII PCR Not detected 06/01/25 19:40: Lactate 1.6, Phosphorus 3.3 06/01/25 20:00: Urine Color Yellow, Urine Appearance Clear, Urine pH 6.0, Ur Specific [place] >= 1.030, Urine Protein 1+ A, Urine Glucose (UA) Negative, Urine Ketones Negative, Urine Blood 1+ A, Urine Nitrate Positive, Urine Bilirubin Negative, Urine Urobilinogen 0.2, Ur Leukocyte Esterase Trace, Urine RBC 3-5, Urine WBC 10-20, Ur Squamous Epith Cells Occasional, Urine Bacteria 3+ 06/02/25 07:01: WBC 4.1 L D, RBC 3.38 L, Hgb 11.7 L D, Hct 32.8 L, MCV 97.0, MCH 34.6 H, MCHC 35.7 H, RDW 15.7, Plt Count 147, MPV 10.3, Neut % (Auto) 57.1, Lymph % (Auto) 25.9, Monroe % (Auto) 13.1 H, Eos % (Auto) 3.2, Baso % (Auto) 0.7, Neut # (Auto) 2.3, Lymph # (Auto) 1.1, Monroe # (Auto) 0.5, Eos # (Auto) 0.1, Baso # (Auto) 0.0, Sodium 133 L, Potassium 3.5, Chloride 100, Carbon Dioxide 27, Anion Gap 9.5, BUN 21 H, Creatinine 1.70 H, Estimated Creat Clear 28, Estimated GFR 29 L, Est GFR ( Amer) 35 L, Glucose 89 D, Calcium 9.4, Magnesium 1.7 D, Total Bilirubin 0.9, AST 40 H, ALT 29, Alkaline Phosphatase 78, Total Protein 6.3, Albumin 3.6 D, Globulin 2.7, Albumin/Globulin Ratio 1.3 I & O for Last 24 hours: Intake & Output 05/30/25 05/31/25 06/01/25 06/02/25 23:59 23:59 23:59 23:59 Intake Total 1410 / 1530 1360 / 1360 Output Total 150 / 150 0 / 0 Balance 1260 / 1380 1360 / 1360 Weight 60.328 kg 61.235 kg Constitutional Constitutional: no acute distress, average body habitus, chronically ill appearing and cooperative *Routine HEENT Exam Head: Present normocephalic Eye: Present EOMI and PERRL ENT: Present mucous membranes moist *Routine Neck Exam Neck: Present supple; Absent lymphadenopathy Routine Chest/Breast/Axilla Exam Comments: Port in left upper chest *Routine Respiratory Exam Respiratory: Present CTA bilaterally; Absent rhonchi, wheezes or crackles *Routine Cardiovascular Exam Cardiovascular: Present RRR *Routine Abdominal Exam Abdominal: Present soft and normoactive bowel sounds; Absent tenderness Comments: Good output from ostomy *Routine Rectal Exam Patient deferred: visual exam *Routine Exam Patient deferred: external exam *Routine Extremities Exam Extremities: Absent cyanosis, clubbing or edema *Routine Skin Exam Skin: Present intact and warm; Absent rash *Routine Neurological Exam Neurological: Present alert, oriented X3 and moving all extremities; Absent altered mental status Results Data Completed and Pending Labs on day of discharge: Labs from last 24 hours 06/02/25 06/01/25 06/01/25 07:01 20:00 19:40 WBC 4.1 L D RBC 3.38 L Hgb 11.7 L D Hct 32.8 L MCV 97.0 MCH 34.6 H MCHC 35.7 H RDW 15.7 Plt Count 147 MPV 10.3 Neut % (Auto) 57.1 Lymph % (Auto) 25.9 Monroe % (Auto) 13.1 H Eos % (Auto) 3.2 Baso % (Auto) 0.7 Neut # (Auto) 2.3 Lymph # (Auto) 1.1 Monroe # (Auto) 0.5 Eos # (Auto) 0.1 Baso # (Auto) 0.0 VBG Lactic Acid Sodium 133 L Potassium 3.5 Chloride 100 Carbon Dioxide 27 Anion Gap 9.5 BUN 21 H Creatinine 1.70 H Estimated Creat Clear 28 Estimated GFR 29 L Est GFR ( Amer) 35 L Glucose 89 D Lactate 1.6 Calcium 9.4 Phosphorus 3.3 Magnesium 1.7 D Total Bilirubin 0.9 AST 40 H ALT 29 Alkaline Phosphatase 78 Troponin I C-Reactive Protein Total Protein 6.3 Albumin 3.6 D Globulin 2.7 Albumin/Globulin Ratio 1.3 Lipase Urine Color Yellow Urine Appearance Clear Urine pH 6.0 Ur Specific [place] >= 1.030 Urine Protein 1+ A Urine Glucose (UA) Negative Urine Ketones Negative Urine Blood 1+ A Urine Nitrate Positive Urine Bilirubin Negative Urine Urobilinogen 0.2 Ur Leukocyte Esterase Trace Urine RBC 3-5 Urine WBC 10-20 Ur Squamous Epith Cells Occasional Urine Bacteria 3+ Stl C. cayetanensis PCR Stool Rotavirus (PCR) Stl Adenov F PCR Stool Astrovirus (PCR) Stool Campylobacter PCR Stl C.difficile Tox PCR Stool Cryptosporidium PCR Stl E.coli Shiga Tox PCR Stool E coli O157 PCR Stl Enterotoxigenic E PCR Stool EPEC (PCR) Stool EAEC (PCR) Stl E. histolytica PCR Stool Giardia Lamblia PCR Stool Salmonella PCR Stool Sapovirus (PCR) Stl P. shigelloides PCR Stl Shigella/EIEC PCR St Y.enterocolitica PCR Stool Vibrio (PCR) Stl Vibrio cholerae PCR Stl Norovirus GI/GII PCR Chlamy pneumoniae PCR Adenovirus (PCR) B. pertussis DNA (PCR) Coronavirus OC43 (PCR) Coronavirus HKU1 (PCR) Coronavirus 229E (PCR) SARS-CoV-2 (PCR) Coronavirus NL63 (PCR) Human Metapneumovir PCR Influenza A (H1) PCR Influ A (H1N1/09) PCR Influenza A (H3) PCR Influenza Type A (PCR) Influenza Type B (PCR) M. pneumoniae (PCR) Parainfluenza 1 (PCR) Parainfluenza 2 (PCR) Parainfluenza 3 (PCR) Parainfluenza 4 (PCR) RSV (PCR) Entero/Rhino (PCR) 06/01/25 06/01/25 06/01/25 18:42 16:30 13:22 WBC RBC Hgb Hct MCV MCH MCHC RDW Plt Count MPV Neut % (Auto) Lymph % (Auto) Monroe % (Auto) Eos % (Auto) Baso % (Auto) Neut # (Auto) Lymph # (Auto) Monroe # (Auto) Eos # (Auto) Baso # (Auto) VBG Lactic Acid Sodium Potassium Chloride Carbon Dioxide Anion Gap BUN Creatinine Estimated Creat Clear Estimated GFR Est GFR ( Amer) Glucose Lactate 2.2 H Calcium Phosphorus Magnesium Total Bilirubin AST ALT Alkaline Phosphatase Troponin I < 0.01 0.01 C-Reactive Protein Total Protein Albumin Globulin Albumin/Globulin Ratio Lipase Urine Color Urine Appearance Urine pH Ur Specific [place] Urine Protein Urine Glucose (UA) Urine Ketones Urine Blood Urine Nitrate Urine Bilirubin Urine Urobilinogen Ur Leukocyte Esterase Urine RBC Urine WBC Ur Squamous Epith Cells Urine Bacteria Stl C. cayetanensis PCR Not detected Stool Rotavirus (PCR) Not detected Stl Adenov F 40/41 PCR Not detected Stool Astrovirus (PCR) Not detected Stool Campylobacter PCR Not detected Stl C.difficile Tox PCR Not detected Stool Cryptosporidium PCR Not detected Stl E.coli Shiga Tox PCR Not detected Stool E coli O157 PCR Not detected Stl Enterotoxigenic E PCR Not detected Stool EPEC (PCR) Not detected Stool EAEC (PCR) Not detected Stl E. histolytica PCR Not detected Stool Giardia Lamblia PCR Not detected Stool Salmonella PCR Not detected Stool Sapovirus (PCR) Not detected Stl P. shigelloides PCR Not detected Stl Shigella/EIEC PCR Not detected St Y.enterocolitica PCR Not detected Stool Vibrio (PCR) Not detected Stl Vibrio cholerae PCR Not detected Stl Norovirus GI/GII PCR Not detected Chlamy pneumoniae PCR Adenovirus (PCR) B. pertussis DNA (PCR) Coronavirus OC43 (PCR) Coronavirus HKU1 (PCR) Coronavirus 229E (PCR) SARS-CoV-2 (PCR) Coronavirus NL63 (PCR) Human Metapneumovir PCR Influenza A (H1) PCR Influ A (H1N1/09) PCR Influenza A (H3) PCR Influenza Type A (PCR) Influenza Type B (PCR) M. pneumoniae (PCR) Parainfluenza 1 (PCR) Parainfluenza 2 (PCR) Parainfluenza 3 (PCR) Parainfluenza 4 (PCR) RSV (PCR) Entero/Rhino (PCR) 06/01/25 06/01/25 06/01/25 10:27 10:26 10:23 WBC 6.1 RBC 3.97 L Hgb 13.7 Hct 38.6 MCV 97.2 MCH 34.5 H MCHC 35.5 H RDW 15.6 Plt Count 157 MPV 10.7 H Neut % (Auto) 73.5 Lymph % (Auto) 14.4 Monroe % (Auto) 10.0 H Eos % (Auto) 1.1 Baso % (Auto) 0.7 Neut # (Auto) 4.5 Lymph # (Auto) 0.9 Monroe # (Auto) 0.6 Eos # (Auto) 0.1 Baso # (Auto) 0.0 VBG Lactic Acid 3.2 H Sodium 133 L Potassium 3.3 L Chloride 101 Carbon Dioxide 25 Anion Gap 10.3 BUN 28 H Creatinine 1.90 H Estimated Creat Clear 24 Estimated GFR 26 L Est GFR ( Amer) 31 L Glucose 134 H Lactate Calcium 10.3 H Phosphorus Magnesium 1.5 L Total Bilirubin 0.7 AST 53 H ALT 36 Alkaline Phosphatase 84 Troponin I 0.01 C-Reactive Protein 1.3 Total Protein 7.4 Albumin 4.4 Globulin 3.0 Albumin/Globulin Ratio 1.5 Lipase 476 H Urine Color Urine Appearance Urine pH Ur Specific [place] Urine Protein Urine Glucose (UA) Urine Ketones Urine Blood Urine Nitrate Urine Bilirubin Urine Urobilinogen Ur Leukocyte Esterase Urine RBC Urine WBC Ur Squamous Epith Cells Urine Bacteria Stl C. cayetanensis PCR Stool Rotavirus (PCR) Stl Adenov F 40/41 PCR Stool Astrovirus (PCR) Stool Campylobacter PCR Stl C.difficile Tox PCR Stool Cryptosporidium PCR Stl E.coli Shiga Tox PCR Stool E coli O157 PCR Stl Enterotoxigenic E PCR Stool EPEC (PCR) Stool EAEC (PCR) Stl E. histolytica PCR Stool Giardia Lamblia PCR Stool Salmonella PCR Stool Sapovirus (PCR) Stl P. shigelloides PCR Stl Shigella/EIEC PCR St Y.enterocolitica PCR Stool Vibrio (PCR) Stl Vibrio cholerae PCR Stl Norovirus GI/GII PCR Chlamy pneumoniae PCR Not detected Adenovirus (PCR) Not detected B. pertussis DNA (PCR) Not detected Coronavirus OC43 (PCR) Not detected Coronavirus HKU1 (PCR) Not detected Coronavirus 229E (PCR) Not detected SARS-CoV-2 (PCR) Not detected Coronavirus NL63 (PCR) Not detected Human Metapneumovir PCR Not detected Influenza A (H1) PCR Not detected Influ A (H1N1/09) PCR Not detected Influenza A (H3) PCR Not detected Influenza Type A (PCR) Not detected Influenza Type B (PCR) Not detected M. pneumoniae (PCR) Not detected Parainfluenza 1 (PCR) Not detected Parainfluenza 2 (PCR) Not detected Parainfluenza 3 (PCR) Not detected Parainfluenza 4 (PCR) Not detected RSV (PCR) Not detected Entero/Rhino (PCR) Not detected DS: Diagnosis Discharge Diagnosis (1) Rectal carcinoma: Status: Acute Code(s): C20 - Malignant neoplasm of rectum (2) LENA (acute kidney injury): Status: Acute Code(s): N17.9 - Acute kidney failure, unspecified (3) General weakness: Status: Acute Code(s): R53.1 - Weakness (4) Chronic kidney disease (CKD), stage 4: Status: Chronic Code(s): N18.4 - Chronic kidney disease, stage 4 (severe) Meds Home Medications and Allergies Home Medications ?Medication ?Instructions ?Recorded ?Confirmed ?Type ondansetron 8 mg disintegrating 8 mg PO DIRECTED 06/01/25 History tablet prochlorperazine maleate 10 mg 10 mg PO Q6HP PRN nause a and 10/21/24 06/01/25 History tablet (Compazine) vomiting fluorouracil 500 mg/10 mL 700 mg IV DIRECTED cancer 04/09/25 06/01/25 History intravenous solution leucovorin calcium 200 mg solution 700 mg IV DIRECT ED cancer 04/09/25 06/01/25 History for injection oxaliplatin 100 mg/20 mL 100 mg IV DIRECTED cancer 04/09/25 06/01/25 History intravenous solution New Prescriptions to Start Prescriptions: Allergies Allergy/AdvReac Type Severity Reaction Status Date / Time No Known Allergies Allergy Verified 06/01/25 10:09 Discharge Plan Disposition Patient Disposition: Home, Self-Care Condition: Good Follow up Plan Follow up with: Natalia Wayne APRN [Primary Care Provider, Medical] - Enter time for follow up Referral Note: Please call for appointment. Prescriptions/Medication Reconciliation: Continued leucovorin calcium 200 mg Recon Soln 700 mg IV DIRECTED Rx Instructions: Day 1 and Day 15 of a 28 day cycle oxaliplatin 100 mg/20 mL Solution 100 mg IV DIRECTED Rx Instructions: day 1 and day 15 of a 28 day cycle fluorouracil 500 mg/10 mL Solution 700 mg IV DIRECTED Rx Instructions: IVP administered day and day 15 of 28 day cycle. Pt then receives 46 hour cont 5 fu infusion of 5fu (4200mg iv) prochlorperazine maleate [Compazine] 10 mg tablet 10 mg PO Q6HP PRN (Reason: nausea and vomiting) ondansetron 8 mg tablet,disintegrating 8 mg PO DIRECTED Rx Instructions: take one tablet daily for 2 days following chemotherapy -- repeat each cycle Problem Reconciliation Problems Reviewed?: Yes Patient Discharge Instructions ACTIVITY: Continue current activity DIET: continue same diet Patient Instructions: Dehydration, Acute Kidney Injury, DI for Hypomagnesemia Print Language: Peruvian Providers Primary Care Provider: Natalia Wayne Admit Provider: Sarthak Mcneil Attending Provider: Sarthak Mcneil
[2025-06-02] MEDS: MAGNESIUM SULFATE IN WATER 2 GM/50 ML PIGGYBACK IV (10:40)
[2025-06-02] MEDS: POTASSIUM CHLORIDE 20MEQ TAB 40 MEQ PO (10:40)
--- NOTE | 2025-06-03 10:59 | SW/DCPLANNER ---
Spoke with patient on the phone. Patient stated that she is doing a little better than when she came into the hospital. Patient stated that she will call her PCP and schedule a follow up appointment. Patient stated that she was not prescribed any new medicine. Patient stated that she has no concerns or questions at this time. Cinthia Jerez
[2025-06-03 16:19] LABS: Calcium, Ionized 5.1 mg/dL (4.5-5.6)
--- NOTE | 2025-06-04 08:40 | PC.NURSE ---
prelim urine culture forwarded to the hospitalist as she was admitted.
== END 2025-06-02 12:49 | disposition home or self-care (01) ==
LOC: ER 10:04 → 2ND 13:46
PROVIDERS: Admitting Provider Student in an Organized Health Care Education/Training Program; Emergency Provider Student in an Organized Health Care Education/Training Program; PCP Nurse Practitioner Family; Visit Provider Student in an Organized Health Care Education/Training Program
DX: R63.0 Anorexia (principal); E83.42 Hypomagnesemia; I12.9 Hypertensive chronic kidney disease with stage 1 through stage 4 chronic kidney disease, or unspecified chronic kidney disease; C20 Malignant neoplasm of rectum; N17.9 Acute kidney failure, unspecified; N18.4 Chronic kidney disease, stage 4 (severe); C79.9 Secondary malignant neoplasm of unspecified site; K94.19 Other complications of enterostomy; R74.8 Abnormal levels of other serum enzymes; E78.5 Hyperlipidemia, unspecified; F17.210 Nicotine dependence, cigarettes, uncomplicated; Z85.038 Personal history of other malignant neoplasm of large intestine; Z68.21 Body mass index [BMI] 21.0-21.9, adult; Z79.899 Other long term (current) drug therapy
CPT/HCPCS: 0223U; 36415; 71046; 80053; 81001; 81003; 81015; 82330; 83605; 83690; 83735; 84100; 84484; 85025; 86140; 87040; 87086; 87088; 87186; 87507; 93005; 96361; 96365; 96366; 96372; 96375; 99285; G0378; J1642; J1650; J2405; J3475; J7120

== ENCOUNTER 2025-06-04 09:16 | Outpatient (CLI) | payer MEDICARE, SELFPAY ==
--- OUTSIDE RECORDS SUMMARY | 2025-04-22 11:26 | XMS_ITS | Encounter Summary ---
Author Organization [facility] Address [address] [place] [address] Care Team Providers Care Distribution Lead Name Role Phone Natalia Wayne YVONNE Primary Care Provider [phone] Reason for Referral * Imaging (Routine) - Closed Specialty Diagnoses / Procedures Referred By Lexii t Referred To Contact Radiology Diagnoses Rectal cancer (CMS/HCC) Procedures CT Chest w IV Contrast Joi Stewart MD [address] [address] Phone: tel: fax: Referral ID Status Reason Start Date Expiration Date Visits Re quested Visits Authorized [id number] Closed 02/13/2025 08/15/2026 1 1 * Imaging (Routine) - Closed Specialty Diagnoses / Procedures Referred By Lexii moody Referred To Contact Radiology Diagnoses Rectal cancer (CMS/HCC) Procedures CT Abdomen Pelvis w IV Contrast Joi Stewart MD [address] [address] Phone: tel: fax: Referral ID Status Reason Start Date Expiration Date Visits Re quested Visits Authorized [id number] Closed 02/13/2025 08/15/2026 1 1 Reason for Visit * Imaging (Routine) - Closed Specialty Diagnoses / Procedures Referred By Lexii moody Referred To Contact Radiology Diagnoses Rectal cancer (CMS/HCC) Procedures CT Chest w IV Contrast Joi Stewart MD 800 [facility] [address] [place] [address] Phone: tel: fax: Referral ID Status Reason Start Date Expiration Date Visits Re quested Visits Authorized [id number] Closed 02/13/2025 08/15/2026 1 1 Encounter Details Date Type Department Care Team (Latest Contact Info) Description 04/22/2025 11:26 AM EDT - 04/22/2025 11:59 PM EDT Hospital Encounter [facility] CT [address] [place] [address] Rectal cancer (CMS/HCC) Discharge Disposition: Home or Self Care Social History Tobacco Use Types Packs/Day Years Used Date Smoking Tobacco: Every Day Cigarettes 0.5 50.7 Started: 1974 Passive Smoke Exposure: Past Smokeless [...] Upcoming Encounters Date Type Department Care Team ([facility] st Contact Info) Description 07/30/2025 1:00 PM EDT Appointment [facility] [address] [place] [address] Manoj Fowler MD [address] [facility] [address] [place] [address] 08/12/2025 1:30 PM EST Clinical Support [facility] Multidisciplinary Oncology Clinic [address] [place] [address] 08/12/2025 1:40 PM EST Office Visit [facility] Multidisciplinary Oncology Clinic [address] [place] [address] Joi Stewart MD 800 [facility] Tete Baker [facility] [address] [place] [address] 09/04/2025 10:00 AM EST Appointment [facility] Vascular Lab [address] [facility] 5th Floor [address], [address] [place] [address] 09/04/2025 11:00 AM EST Office Visit [facility] Comprehensive Vascular Clinic [address] [facility] 5th Floor [address], [address] [place] [address] Hilary Cordova MD [address] [facility] [address] [place] [address] documented as of this encounter Goals Goal [...] Total DLP (Dose-Length Product): 640.83 mGy.cm (accession [id number]), 640.83 mGy.cm (accession [id number]). Please note: The reported value represents the [...] Total DLP (Dose-Length Product): 640.83 mGy.cm (accession [id number]),640.83 mGy.cm (accession [id number]). Please note: The reported valuerepresents the total [...] Lucero MD on 04/22/2025 3:58 PM us Jio Stewart MD IMG CT PROCEDURES Final Result [...] Total DLP (Dose-Length Product): 640.83 mGy.cm (accession [id number]), 640.83 mGy.cm (accession [id number]). Please note: The reported value represents the [...] Total DLP (Dose-Length Product): 640.83 mGy.cm (accession [id number]),640.83 mGy.cm (accession [id number]). Please note: The reported valuerepresents the total [...] documented as of this encounter Care Teams Distribution Lead Relationship Specialty Start Date End Date Natalia Wayne, PANEL GLUER [address] [place] [phone] PCP - General 12/10/24 documented as of this encounter
--- OUTSIDE RECORDS SUMMARY | 2025-04-22 14:50 | XMS_ITS | Encounter Summary ---
Author Organization Healthcare Address [address] [place] [address] Care Team Providers Care Weapons Officer Name Role Phone Natalia Wayne YVONNE Primary Care Provider [phone] Encounter Details Date Type Department Care Team (Latest Contact Info) Description 04/22/2025 2:50 PM EDT Clinical Support [facility] Multidisciplinary Oncology Clinic [address] [place] [address] Anika Joya, RN Rectal cancer (CMS/HCC) Social [...] in the past 12 m [facility], were you homeless or living [...] PM EDT Appointment [facility] [address] [place] [address] Manoj Fowler MD [address] [facility] [address] [place] [address] 08/12/2025 1:30 PM EST Clinical Support [facility] Multidisciplinary Oncology Clinic [address] [place] [address] 08/12/2025 1:40 PM EST Office Visit [facility] Multidisciplinary Oncology Clinic [address] [place] [address] Joi Stewart MD [address] [facility] [address] [place] [address] 09/04/2025 10:00 AM EST Appointment [facility] Vascular Lab [address] [place] [address] 09/04/2025 11:00 AM EST Office Visit [facility] Comprehensive Vascular Clinic [address] [place] [address] [address] [place] [address] Hilary Cordova MD [address] [facility] [address] [place] [address] documented as of this encounter Goals Goal [...] - 99 mg/dL 04/22/2025 4:12 PM EDT [facility] BUN, Plasma 13 8 - 23 mg/dL 04/22/2025 4:12 PM EDT [facility] Creatinine, Plasma 1.33(H) 0.60 - 1.10 mg/dL 04/22/2025 4:12 PM EDT [facility] BUN/Creatinine Ratio 10 04/22/2025 4:12 PM EDT [facility] Sodium, Plasma 139 136 - 145 mmol/L 04/22/2025 4:12 PM EDT [facility] Potassium, Plasma 3.6 3.6 - 4.9 mmol/L 04/22/2025 4:12 PM EDT [facility] Chloride, Plasma 105 97 - 107 mmol/L 04/22/2025 4:12 PM EDT [facility] CO2, Plasma 23 22 - 29 mmol/L 04/22/2025 4:12 PM EDT [facility] Anion Gap 11 6 - 16 mmol/L 04/22/2025 4:12 PM EDT [facility] Total Calcium, Plasma 9.3 8.9 - 10.2 mg/dL 04/22/2025 4:12 PM EDT [facility] Total Protein 6.3 6.3 - 7.9 g/dL 04/22/2025 4:12 PM EDT [facility] Albumin, Plasma 3.6 3.5 - 5.2 g/dL 04/22/2025 4:12 PM EDT [facility] AST, Plasma 34 10 - 35 U/L 04/22/2025 4:12 PM EDT [facility] Comment:Hemolyzed, result ma y be falsely increased. ALT, Plasma 44(H) 10 - 35 U/L 04/22/2025 4:12 PM EDT [facility] Alkaline Phosphatase, Plasma 82 46 - 142 U/L 04/22/2025 4:12 PM EDT [facility] Total Bilirubin, Plasma 0.3 0.2 - 1.1 mg/dL 04/22/2025 4:12 PM EDT [facility] eGFRcr 41.8 mL/min/1.7 3m*2 04/22/2025 4:12 PM EDT [facility] Comment:Reported eGFRcr in m L/min/1.73m2 is based the CKD-EPI 2020 equation that does not use a race coefficient. Blood Blood sample taken from central line / Unknown (Port) Long-term Catheter / Unknown 04/22/2025 3:09 PM EDT 04/22/2025 3:39 PM EDT us Joi Stewart MD LAB BLOOD ORDERABLES Final Res ult [facility] [address] [place] [address] * CEA, Serum (04/22/2025 3:09 PM EDT) CEA, Serum 1.9 <4.0 ng/mL 04/22/2025 5:10 PM EDT [facility] Blood Blood sample taken from central line / Unknown (Port) Long-term Catheter / Unknown 04/22/2025 3:09 PM EDT 04/22/2025 3:38 PM EDT Narrative [facility] - 04/22/2025 5:10 PM EDT Normal range for smokers: < 5.5 ng/ml Normal range for non-smokers: <=4.0 ng/ml Performed by Kar[employer] electrochemiluminescent immunoassay. Results obtained with different test methods or kits cannot be used interchangeably. us oJi Stewart MD LAB BLOOD ORDERABLES Final Res ult [facility] [address] [place] [address] * (ABNORMAL) CBC and Differential (04/22/2025 3:09 PM EDT) WBC Count 6.48 3.70 - 10.30 10*3/uL LAB HEMATOLOGY METHOD 04/22/2025 4:01 PM EDT [facility] RBC Count 3.45(L) 3.90 - 5.20 10*6/uL LAB HEMATOLOGY METHOD 04/22/2025 4:01 PM EDT [facility] HGB 11.7 11.2 - 15.7 g/dL LAB HEMATOLOGY METHOD 04/22/2025 4:01 PM EDT [facility] HCT 34.1 34.0 - 45.0 % LAB HEMATOLOGY METHOD 04/22/2025 4:01 PM EDT [facility] Platelet Count 170 155 - 369 10*3/uL LAB HEMATOLOGY METHOD 04/22/2025 4:01 PM EDT [facility] MCV 99(H) 79 - 98 fL LAB HEMATOLOGY METHOD 04/22/2025 4:01 PM EDT [facility] MCH 33.9(H) 26.0 - 32.0 pg LAB HEMATOLOGY METHOD 04/22/2025 4:01 PM EDT [facility] MCHC 34.3 30.7 - 35.5 g/dL LAB HEMATOLOGY METHOD 04/22/2025 4:01 PM EDT [facility] RDW 15.7(H) 11.5 - 14.5 % LAB HEMATOLOGY METHOD 04/22/2025 4:01 PM EDT [facility] MPV 9.8 8.8 - 12.5 fL LAB HEMATOLOGY METHOD 04/22/2025 4:01 PM EDT [facility] nRBC 0.0 <=0.0 per 100 WBCs LAB HEMATOLOGY METHOD 04/22/2025 4:01 PM EDT [facility] Differential Type Automated LAB HEMATOLOGY METHOD 04/22/2025 4:01 PM EDT [facility] Neutrophils % 67 % LAB HEMATOLOGY METHOD 04/22/2025 4:01 PM EDT [facility] Lymphocytes % 18 % LAB HEMATOLOGY METHOD 04/22/2025 4:01 PM EDT [facility] Monocytes % 11 % LAB HEMATOLOGY METHOD 04/22/2025 4:01 PM EDT [facility] Eosinophils % 3 % LAB HEMATOLOGY METHOD 04/22/2025 4:01 PM EDT [facility] Basophils % 1 % LAB HEMATOLOGY METHOD 04/22/2025 4:01 PM EDT [facility] Immature Granulocytes % 0 % LAB HEMATOLOGY METHOD 04/22/2025 4:01 PM EDT [facility] Neutrophils Absolute 4.45 1.60 - 6.10 10*3/uL LAB HEMATOLOGY METHOD 04/22/2025 4:01 PM EDT [facility] Lymphocytes Absolute 1.14(L) 1.20 - 3.90 10*3/uL LAB HEMATOLOGY METHOD 04/22/2025 4:01 PM EDT [facility] Monocytes Absolute 0.68 0.30 - 0.90 10*3/uL LAB HEMATOLOGY METHOD 04/22/2025 4:01 PM EDT [facility] Eosinophils Absolute 0.16 0.00 - 0.50 10*3/uL LAB HEMATOLOGY METHOD 04/22/2025 4:01 PM EDT [facility] Basophils Absolute 0.03 0.00 - 0.10 10*3/uL LAB HEMATOLOGY METHOD 04/22/2025 4:01 PM EDT [facility] Immature Granulocytes Absolute 0.02 0.00 - 0.06 10*3/uL LAB HEMATOLOGY METHOD 04/22/2025 4:01 PM EDT [facility] Blood Blood sample taken from central line / Unknown (Port) Long-term Catheter / Unknown 04/22/2025 3:09 PM EDT 04/22/2025 3:47 PM EDT Narrative [facility] - 04/22/2025 4:01 PM EDT Therapeutic decision making should be based on absolute values, rather than percentages. us Joi Stewart MD LAB BLOOD ORDERABLES Final Res ult [facility] [address] [place] [address] documented in this encounter Visit Diagnoses Diagnosis [...] documented as of this encounter Care Teams Weapons Officer Relationship Specialty Start Date End Date Natalia Wayne APRN [address] [place] [address] PCP - General 12/10/24 documented as of this encounter
--- OUTSIDE RECORDS SUMMARY | 2025-04-22 15:00 | XMS_ITS | Encounter Summary ---
Author Organization Healthcare Address [address] [place] [address] Care Team Providers Care Training Technician Name Role Phone Natalia Wayne SORT WORKER Primary Care Provider [phone] Reason for Visit * Reason Comments Follow-up Rectal cancer Encounter Details Date Type Department Care Team ([facility] st Contact Info) Description 04/22/2025 3:00 PM EDT Office Visit [facility] Mult[facility] Oncology Clinic [address] [place] [address] Joi Stewart MD 800 [facility] [address] [place] [address] Rectal cancer (CMS/HCC) (Primary Dx) [...] any time in the past 12 m [facility], were you homeless or living in [...] Manoj Fowler MD on 08/13/2024 ASSESSMENT/PLAN: Lashae Wmyan is a 74 y.o. female with Cancer [...] refused to cover infusion 5FU) 10/21/24-10/24/24: hospitalized [place] with marked dehydration from severe diarrhea due [...] course XRT). Pt will receive XRT at [place] but 5FU civi through due to insurance restrictions (insurance would not approve 5FU civi to be given at [place], but we were able to get coverage for 5FU civi at ). After completion of chemoXRT, would need 4 months FOLFOX to complete total neoadjuvant therapy for clinical stage III rectal cancer prior to surgical resection--depending on tolerance. 12/25/24: first XRT in [place] 12/24/24: start concurrent 5FU infusion with XRT (5FU civi 225mg/m2 iv over 24 hrs daily on days 1-7for 5 weeks concurrent with XRT--long course XRT). Pt will receive XRT at [place] but 5FU civi through due to insurance restrictions (insurance would not approve 5FU civi to be given at [place], but we were able to get coverage [...] --currently getting FOLFOX with Dr. Yip in [place], tolerating well Follow up - Pending CT CAP from today - To complete FOLFOX with Dr. Yip in [place] - We will follow up after she finished, attempt same day with Dr. Fowler 07/30 - 07/30/25: flex sig sched with Dr. Manoj Fowler Patient and family encouraged to call if any problems or concerns prior to next visit. Radiation oncologist Shayy Ovalle. Dr. Mariia Marks phone [phone] >30 minutes was spent on this encounter; including preparing to see the patient, which involved review/interpretation of diagnostics and reports; obtaining and/or reviewing separately obtained history; performing appropriate physical exam; ordering/scheduling medications, tests or procedures; communicating findings and counseling/educating the patient, family and/or caregiver; documentation inEMR; and care coordination. Joi Stewart MD Division of Medical Oncology [facility] Oncology History: Oncology History Overview Note Rectal [...] refused to cover infusion 5FU) 10/21/24-10/24/24: hospitalized [place] with marked dehydration from severe diarrhea due [...] course XRT). Pt will receive XRT at [place] but 5FU civi through due to insurance restrictions (insurance would not approve 5FU civi to be given at [place], but we were able to get coverage [...] sched with Dr. Manoj Fowler Rectal cancer ([facility]/HCC) 08/06/2024 Cancer Staged Staging form: Colon and Rectum, AJCC 8th Edition, Clinical stage from 08/06/2024: Stage IIIB (cT3, cN1, cM0) - Signed by Manoj Fowler MD on 08/13/2024 08/13/2024 Initial Diagnosis Rectal cancer ([facility]) 12/16/2024 - 12/16/2024 Chemotherapy mitoMYcin (Mutamycin) [...] Continue neoadjuvant FOLFOX with Dr. Yip in [place]. Will see her back here in August 2025 after flex sig with Dr. Fowler. documented in this encounter Plan of Treatment Upcoming Encounters Date Type Department Care Team (Late st Contact Info) Description 07/30/2025 1:00 PM EDT Appointment [facility] [address] [place] [address] Manoj Fowler MD [id number] [place] [address] 08/12/2025 1:30 PM EST Clinical Support [facility] [address] [place] [address] 08/12/2025 1:40 PM EST Office Visit [facility] Mult[facility] On[facility] Clinic [address] [place] [address] Joi Stewart MD 800 [facility] [address] [place] [address] 09/04/2025 10:00 AM EST Appointment [facility] V[facility] Lab [address] [place] [address] 09/04/2025 11:00 AM EST Office Visit [facility] Clinic [address] [place] [address] [address] [place] [address] Hilary Cordova MD [id number] [place] [address] Scheduled Orders Name Type Priority [...] documented as of this encounter Care Teams Training Technician Relationship Specialty Start Date End Date Natalia Wayne, YVONNE [address] [place] [address] PCP - General 12/10/24 documented as of this encounter
--- OUTSIDE RECORDS SUMMARY | 2025-06-04 09:32 | XMS_ITS | Encounter Summary ---
Author Organization [facility] Address [address] [place] [address] Care Team Providers Care Farmer And Grazier Name Role Phone Natalia Wayne YVONNE Primary Care Provider [phone] Encounter Details Date Type Department Care Team [...] Several days 04/22/2025 2:48 PM EDT Alia Fogn Patient Health Questionnaire -2 Score 2 04/22/2025 [...] PM EDT Appointment [facility] [address] [place] [address] Manoj Fowler MD [address] [facility] [address] [place] [address] 08/12/2025 1:30 PM EST Clinical Support [facility] Multidisciplinary Oncology Clinic [address] [place] [address] 08/12/2025 1:40 PM EST Office Visit [facility] Multidisciplinary Oncology Clinic [address] [place] [address] Joi Stewart MD [address] [facility] Tete Baker [facility] [address] [place] [address] 09/04/2025 10:00 AM EST Appointment [facility] [address] [place] [address] Floor [address] [place] [address] 09/04/2025 11:00 AM EST Office Visit [facility] [address] [place] [address] [address] [place] [address] Hilary Cordova MD [address] [facility] [address] [place] [address] documented as of this encounter [...] documented as of this encounter Care Teams Farmer And Grazier Relationship Specialty Start Date End Date Natalia Wayne, YVONNE [address] [place] [address] PCP - General 12/10/24 documented as of this encounter
--- OUTSIDE RECORDS SUMMARY | 2025-06-04 09:32 | XMS_ITS | Clinical Summary ---
Author Organization [facility] Address [address] [place] [address] Care Team Providers Care Camp Assistant Name Role Phone Unavailable Primary Care Provider [...]
--- OUTSIDE RECORDS SUMMARY | 2025-06-04 09:33 | XMS_ITS ---
Author Organization [facility] Address [address] [place] [address] Care Team Providers Care Blasting Gang Miner Name Role Phone Natalia Wayne APRN Primary Care Provider [phone] Active Problems Problem Noted Date Diagnosed Date [...] 5-FU (Adrucil) infusion - for home use ([facility] supplied) CADD 100ML Therapy Complete Joi Stewart MD 1 of 1 cycle started MitoMYcin + Fluorouracil Every 28 Days x 2 + XRT 12/17/19 25 12/13/2024 5-FU CHEMO INFUSION ([facility] SUPPLIED) CADD ORDERABLEmitoMYcin (Mutamycin) Other (See Comments) Joi Stewart MD Treatment not started Resolved Problems Problem Noted Date Diagnosed Date Resolved Date Large bowel obstruction 08/31/2024 120 01/2024
--- OUTSIDE RECORDS SUMMARY | 2025-06-04 09:33 | XMS_ITS | Encounter Summary ---
Author Organization [facility] Address [address] [place] [address] Care Team Providers Care Lacemaker Name Role Phone Pcp, No Primary Care Provider Natalia Hector APRN Primary Care Provider [phone] Encounter Details Date Type Department Care Team (Late st Contact Info) Description 11/14/2024 Orders Only External Location [address] [place] [address] Provider, External Social History Tobacco Use Types [...] No 09/02/2024 Housing Stability Vital Sign Answer Derrcik e Recorded In the last 12 months, [...] PM EDT Appointment [facility] [address] [place] [phone] [facility]oj Fowler [facility] [address] [facility] [facility] [address] [place] [address] 08/12/2025 1:30 PM EST Clinical Support [facility] Multidisciplinary Oncology Clinic [address] [place] [address] 08/12/2025 1:40 PM EST Office Visit [facility] Multidisciplinary Oncology Clinic [address] [place] [address] Joi Stewart MD [address] [facility] Tete Baker [facility] [address] [place] [phone] 09/04/2025 10:00 AM EST Appointment [facility] Vascular Lab [address] [facility] 5th Floor [address] [place] [address] 09/04/2025 11:00 AM EST Office Visit [facility] Comprehensive Vascular Clinic [address] [place] [address] Hilary Cordova MD [address] [place] [address] documented as of this encounter [...] documented as of this encounter Care Teams Lacemaker Relationship Specialty Start Date End Date Pcp, Mady [address] [place] [address] PCP - General Family Medicine 06/11/24 12/09/24 Natalia Wayne, YVONNE [address] [place] [address] PCP - General 12/10/24 documented as of this encounter
--- OUTSIDE RECORDS SUMMARY | 2025-06-04 09:33 | XMS_ITS | Clinical Summary ---
Author Organization [facility] Address [address] [place] [address] Care Team Providers Care Skip Hoist Operator Name Role Phone Natalia Wayne YVONNE Primary Care Provider [phone] Allergies No known active allergies Medications rosuvastatin [...] EDT Office Visit [facility] [address] [place] [phone] Jio Stewart MD Rectal cancer (CMS/HCC) (Primary Dx) 04/22/2025 2:50 PM EDT Clinical Support [facility] [address] [place] [phone] Anika Joya, RN Rectal cancer (CMS/HCC) 04/22/2025 11:26 AM EDT - 04/22/2025 11:59 PM EDT Hospital Encounter [facility] [address] [place] [address] Rectal cancer (CMS/HCC) Discharge Disposition: Home or Self Care 04/22/2025 Travel 03/31/2025 Telephone [facility] [address] [place] [phone] Manoj Fowler MD 03/31/2025 Telephone [facility] [address] [place] [phone] Manoj Fowler MD Flexible Sigmoidoscopy from [...] th e electric, gas, oil, or water [employer] threatened to shut off services in your [...] PM EDT Appointment [facility] [address] [place] [phone] Manoj Fowler MD [address] [facility] [address] [place] [address] 08/12/2025 1:30 PM EST Clinical Support [facility] Multidisciplinary Oncology Clinic [address] [place] [phone] 08/12/2025 1:40 PM EST Office Visit [facility] Multidisciplinary Oncology Clinic [address] [place] [address] Joi Stewart MD [address] [facility] [address] [place] [address] 09/04/2025 10:00 AM EST Appointment [facility] [address] [facility] 5th Floor [address] [place] [address] 09/04/2025 11:00 AM EST Office Visit [facility] [address] 5th Floor [address] [place] [address] Hilary Cordova MD [address] [facility] [address] [place] [address] Health Maintenance Due Date Last Done Comments [facility]-Bone Density Scan 1949 [facility]-Medicare Annual Wellness (AWV) 1949 [facility]-Infant/Child/Adol SDOH Screenings 1949 [facility]-DTaP,Tdap,and Td Vaccine s (1 - Tdap) 1968 [facility]-Pneumococcal Vaccine: 50 + Years (1 of 2 - PCV) 1968 [facility]-Zoster Vaccines (1 of 2) 1968 CT Colonography 1994 FIT-DNA 1994 FIT 1994 FOBT 1994 Sigmoidoscopy 1994 EBP-QHMSM-89 Vaccine (2 - Cady risk series) 01/07/2021 [...] LAB HEMATOLOGY METHOD 04/22/2025 4:01 PM EDT [facility] RBC Count 3.45(L) 3.90 - 5.20 10*6/uL LAB HEMATOLOGY METHOD 04/22/2025 4:01 PM EDT [facility] HGB 11.7 11.2 - 15.7 g/dL LAB HEMATOLOGY METHOD 04/22/2025 4:01 PM EDT [facility] HCT 34.1 34.0 - 45.0 % LAB HEMATOLOGY METHOD 04/22/2025 4:01 PM EDT [facility] Platelet Count 170 155 - 369 10*3/uL LAB HEMATOLOGY METHOD 04/22/2025 4:01 PM EDT [facility] MCV 99(H) 79 - 98 fL LAB HEMATOLOGY METHOD 04/22/2025 4:01 PM EDT [facility] MCH 33.9(H) 26.0 - 32.0 pg LAB HEMATOLOGY METHOD 04/22/2025 4:01 PM EDT [facility] MCHC 34.3 30.7 - 35.5 g/dL LAB HEMATOLOGY METHOD 04/22/2025 4:01 PM EDT [facility] RDW 15.7(H) 11.5 - 14.5 % LAB HEMATOLOGY METHOD 04/22/2025 4:01 PM EDT [facility] MPV 9.8 8.8 - 12.5 fL LAB HEMATOLOGY METHOD 04/22/2025 4:01 PM EDT [facility] nRBC 0.0 <=0.0 per 100 WBCs LAB HEMATOLOGY METHOD 04/22/2025 4:01 PM EDT [facility] Differential Type Automated LAB HEMATOLOGY METHOD 04/22/2025 4:01 PM EDT [facility] Neutrophils % 67 % LAB HEMATOLOGY METHOD 04/22/2025 4:01 PM EDT [facility] Lymphocytes % 18 % LAB HEMATOLOGY METHOD 04/22/2025 4:01 PM EDT [facility] Monocytes % 11 % LAB HEMATOLOGY METHOD 04/22/2025 4:01 PM EDT [facility] Eosinophils % 3 % LAB HEMATOLOGY METHOD 04/22/2025 4:01 PM EDT [facility] Basophils % 1 % LAB HEMATOLOGY METHOD 04/22/2025 4:01 PM EDT [facility] Immature Granulocytes % 0 % LAB HEMATOLOGY METHOD 04/22/2025 4:01 PM EDT [facility] Neutrophils Absolute 4.45 1.60 - 6.10 10*3/uL LAB HEMATOLOGY METHOD 04/22/2025 4:01 PM EDT [facility] Lymphocytes Absolute 1.14(L) 1.20 - 3.90 10*3/uL LAB HEMATOLOGY METHOD 04/22/2025 4:01 PM EDT [facility] Monocytes Absolute 0.68 0.30 - 0.90 10*3/uL LAB HEMATOLOGY METHOD 04/22/2025 4:01 PM EDT [facility] Eosinophils Absolute 0.16 0.00 - 0.50 10*3/uL LAB HEMATOLOGY METHOD 04/22/2025 4:01 PM EDT [facility] Basophils Absolute 0.03 0.00 - 0.10 10*3/uL LAB HEMATOLOGY METHOD 04/22/2025 4:01 PM EDT [facility] Immature Granulocytes Absolute 0.02 0.00 - 0.06 10*3/uL LAB HEMATOLOGY METHOD 04/22/2025 4:01 PM EDT [facility] Blood Blood sample taken from central line / Unknown (Port) Long-term Catheter / Unknown 04/22/2025 3:09 PM EDT 04/22/2025 3:47 PM EDT Narrative [facility] - 04/22/2025 4:01 PM EDT Therapeutic decision making should be based on absolute values, rather than percentages. us Joi Stewart MD LAB BLOOD ORDERABLES Final Res ult [facility] [address] [place] [address] * CEA, Serum (04/22/2025 3:09 PM EDT) CEA, Serum 1.9 <4.0 ng/mL 04/22/2025 5:10 PM EDT [facility] Blood Blood sample taken from central line / Unknown (Port) Long-term Catheter / Unknown 04/22/2025 3:09 PM EDT 04/22/2025 3:38 PM EDT Narrative [facility] - 04/22/2025 5:10 PM EDT Normal range for smokers: < 5.5 ng/ml Normal range for non-smokers: <=4.0 ng/ml Performed by Karin electrochemiluminescent immunoassay. Results obtained with different test methods or kits cannot be used interchangeably. us Joi Stewart MD LAB BLOOD ORDERABLES Final Res ult [facility] [address] [place] [address] * (ABNORMAL) Comprehensive Metabolic Panel, Plasma (04/22/2025 3:09 PM EDT) Glucose, Plasma 120(H) 74 - 99 mg/dL 04/22/2025 4:12 PM EDT [facility] BUN, Plasma 13 8 - 23 mg/dL 04/22/2025 4:12 PM EDT [facility] Creatinine, Plasma 1.33(H) 0.60 - 1.10 mg/dL 04/22/2025 4:12 PM EDT [facility] BUN/Creatinine Ratio 10 04/22/2025 4:12 PM EDT [facility] Sodium, Plasma 139 136 - 145 mmol/L 04/22/2025 4:12 PM EDT [facility] Potassium, Plasma 3.6 3.6 - 4.9 mmol/L 04/22/2025 4:12 PM EDT [facility] Chloride, Plasma 105 97 - 107 mmol/L 04/22/2025 4:12 PM EDT [facility] CO2, Plasma 23 22 - 29 mmol/L 04/22/2025 4:12 PM EDT [facility] Anion Gap 11 6 - 16 mmol/L 04/22/2025 4:12 PM EDT [facility] Total Calcium, Plasma 9.3 8.9 - 10.2 mg/dL 04/22/2025 4:12 PM EDT [facility] Total Protein 6.3 6.3 - 7.9 g/dL 04/22/2025 4:12 PM EDT [facility] Albumin, Plasma 3.6 3.5 - 5.2 g/dL 04/22/2025 4:12 PM EDT [facility] AST, Plasma 34 10 - 35 U/L 04/22/2025 4:12 PM EDT [facility] Comment:Hemolyzed, result ma y be falsely increased. ALT, Plasma 44(H) 10 - 35 U/L 04/22/2025 4:12 PM EDT [facility] Alkaline Phosphatase, Plasma 82 46 - 142 U/L 04/22/2025 4:12 PM EDT [facility] Total Bilirubin, Plasma 0.3 0.2 - 1.1 mg/dL 04/22/2025 4:12 PM EDT [facility] eGFRcr 41.8 mL/min/1.7 3m*2 04/22/2025 4:12 PM EDT [facility] Comment:Reported eGFRcr in m L/min/1.73m2 is based the CKD-EPI 2020 equation that does not use a race coefficient. Blood Blood sample taken from central line / Unknown (Port) Long-term Catheter / Unknown 04/22/2025 3:09 PM EDT 04/22/2025 3:39 PM EDT us Joi Stewart MD LAB BLOOD ORDERABLES Final Res ult [facility] [address] [place] [address] * CT Abdomen Pelvis w IV Contrast [...] Total DLP (Dose-Length Product): 640.83 mGy.cm (accession [id number]), 640.83 mGy.cm (accession [id number]). Please note: The reported value represents the [...] Total DLP (Dose-Length Product): 640.83 mGy.cm (accession [id number]),640.83 mGy.cm (accession [id number]). Please note: The reported valuerepresents the total [...] Total DLP (Dose-Length Product): 640.83 mGy.cm (accession [id number]), 640.83 mGy.cm (accession [id number]). Please note: The reported value represents the [...] Total DLP (Dose-Length Product): 640.83 mGy.cm (accession [id number]),640.83 mGy.cm (accession [id number]). Please note: The reported valuerepresents the total [...] Antibody Negative Negative 08/31/2024 6:21 PM EST [facility] Blood Venous blood specimen / Unknown Venipuncture / Unknown 08/31/2024 5:22 PM EST 08/31/2024 5:40 PM EST us Meño Cano MD LAB BLOOD ORDERABLES Final Re sult [facility] [address] [place] [address] * Colonoscopy (07/22/2024 9:29 AM EDT) Anatomical [...] Staff Staff Role Robert Bueno Endo Carpentry Specialist Shruti Gutierrez CRNA CRNA Gantt, Randolph Endo Carpentry Specialist Richard Borja MD Proceduralist Marcelina Arana Nurse [...] of bowel preparation was evaluated using the Admire Bowel Preparation Scale with scores of: right [...] Date Diagnosed Date Autogenerated Problem 03/31/2025 [facility] [place] [id number] MEDICARE Member Subscriber Plan / Payer (Ef fective 2015-Present) Name:Lashea Sim Member ID:[id number] Relation to Subscriber:Self Name:Lashae Sim Subscriber ID:[id number] Payer ID:MEDICARE Group ID:Not on file Type:Medicare Address: [place] [phone] Advance Directives * Full Code (Latest Code Status on File) Date Activated Date Inactivated Comments 09/02/2024 9:48 PM 09/05/2024 12:25 PM Question Answer Comments Patient has decision-making capacity? Yes * Full Code Date Activated Date Inactivated Comments 08/31/2024 7:20 PM 09/02/2024 9:48 PM Question Answer Comments Patient has decision-making capacity? Yes Care Teams Skip Hoist Operator Relationship Specialty Start Date End Date Natalia Wayne APRN [address] [place] [address] PCP - General 12/10/24
[2025-06-04 09:58] LABS: Hematocrit 35.8 % (37.0-47.0); Hemoglobin 12.5 g/dL (12.2-16.2); Immature Granulocytes % 0 %; Mean Corpuscular HGB Conc 34.9 g/dL (31.8-35.4); Mean Corpuscular Hemoglobin 34.7 pg (27.0-31.2); Mean Corpuscular Volume 99.4 fl (81-99); Nucleated Red Blood Cells % 0 %; Platelet Count 162 K/mm3 (142-424); Red Blood Count 3.60 M/mm3 (4.20-5.40); Red Cell Distribution Width-SD 58.8 fL; White Blood Count 3.2 K/mm3 (4.8-10.8)
[2025-06-04 10:14] LABS: Alanine Aminotransferase 30 U/L (12-78); Albumin Level 4.1 g/dl (3.5-5.0); Albumin/Globulin Ratio 1.4 (1.1-1.8); Alkaline Phosphatase 80 U/L (38-126); Anion Gap 11.7 mEq/L (5-15); Aspartate Amino Transferase 39 U/L (14-36); Bilirubin,Total 0.7 mg/dl (0.2-1.3); Blood Urea Nitrogen 21 mg/dl (7-17); Calcium 9.6 mg/dl (8.4-10.2); Carbon Dioxide 28 mmol/L (22.0-30.0); Chloride 98 mmol/L (98-107); Creatinine,Serum 1.70 mg/dl (0.52-1.04); Estimated Glomerular Filt Rate 29 ml/min (>60); GFR (African American) 35 ML/MIN (>60); Globulin 2.9 g/dL (1.3-3.2); Glucose 98 mg/dl (74-100); Potassium 3.7 mmoL/L (3.5-5.1); Sodium 134 mmol/L (136-145); Total Protein,Serum 7.0 g/dl (6.3-8.2)
[2025-06-04 10:15] LABS: Magnesium 1.8 mg/dl (1.6-2.3)
[2025-06-04 10:48] VITALS: BP 146/82; PULSE 82; RESP 18; TEMP 36.6; O2SAT 98
[2025-06-04] MEDS: DEXAMETHASONE 4MG/ML 1ML VIAL 4 MG IV (10:48)
[2025-06-04] MEDS: 0.9 % SODIUM CHLORIDE 1000ML 1,000 ML 999 ML IV (10:48)
[2025-06-04] MEDS: SODIUM CHLORIDE 0.9% 10ML FLUSH SYRINGE 10 ML IV (10:55)
[2025-06-04 11:50] VITALS: BP 139/81; PULSE 80; RESP 18; O2SAT 98
--- NOTE | 2025-06-04 11:53 | XR_ITS ---
FINAL REPORT CLINICAL HISTORY: lower back pain, hx of rectal cancer FINDINGS: LUMBAR SPINE Three views were obtained. There is no acute fracture. There is mild to moderate disc space narrowing at L2-3 with mild anterior osteophyte formation. There is moderate diffuse sclerosis in the lower lumbar spine. There is no malalignment. IMPRESSION: Degenerative changes as above. Reviewed, Interpreted and Dictated by Richard Schofield MD Transcribed by Ileana Witt Authenticated and . [facility]
== END 2025-06-04 11:50 | disposition home or self-care (01) ==
LOC: INF 09:19
PROVIDERS: PCP Nurse Practitioner Family; Visit Provider Internal Medicine Medical Oncology
DX: C20 Malignant neoplasm of rectum (principal); C77.5 Secondary and unspecified malignant neoplasm of intrapelvic lymph nodes
CPT/HCPCS: 72100; 80053; 83735; 85025; 96360; 96375; J1100; J1642; J7030

== ENCOUNTER 2025-06-11 09:51 | Outpatient (CLI) | payer MEDICARE, SELFPAY ==
--- OUTSIDE RECORDS SUMMARY | 2025-04-22 11:26 | XMS_ITS | Encounter Summary ---
Author Organization [facility] Address [address] [place] [address] Care Team Providers Care Dispute Specialist Name Role Phone Natalia Wayne YVONNE Primary Care Provider [phone] Reason for Referral * Imaging (Routine) - Closed Specialty Diagnoses / Procedures Referred By Lexii t Referred To Contact Radiology Diagnoses Rectal cancer (CMS/HCC) Procedures CT Chest w IV Contrast Joi Stewart MD [address] [address] Phone: tel: fax: Referral ID Status Reason Start Date Expiration Date Visits Re quested Visits Authorized [id number] Closed 02/13/2025 08/15/2026 1 1 * Imaging (Routine) - Closed Specialty Diagnoses / Procedures Referred By Lexii moody Referred To Contact Radiology Diagnoses Rectal cancer (CMS/HCC) Procedures CT Abdomen Pelvis w IV Contrast Joi Stewart MD [address] [address] Phone: tel: fax: Referral ID Status Reason Start Date Expiration Date Visits Re quested Visits Authorized [id number] Closed 02/13/2025 08/15/2026 1 1 Reason for Visit * Imaging (Routine) - Closed Specialty Diagnoses / Procedures Referred By Lexii moody Referred To Contact Radiology Diagnoses Rectal cancer (CMS/HCC) Procedures CT Chest w IV Contrast Joi Stewart MD 800 [facility] [address] [place] [address] Phone: tel: fax: Referral ID Status Reason Start Date Expiration Date Visits Re quested Visits Authorized [id number] Closed 02/13/2025 08/15/2026 1 1 Encounter Details Date Type Department Care Team (Latest Contact Info) Description 04/22/2025 11:26 AM EDT - 04/22/2025 11:59 PM EDT Hospital Encounter [facility] [address] [place] [address] Rectal cancer (CMS/HCC) Discharge Disposition: [...] time in the past 12 m [facility], were you homeless or living in [...] Upcoming Encounters Date Type Department Care Team ([facility] st Contact Info) Description 07/30/2025 1:00 PM EDT Appointment [facility] [address] [place] [address] aMnoj Fowler MD [address] [facility] [address] [place] [phone] 08/12/2025 1:30 PM EST Clinical Support [facility] Multidisciplinary Oncology Clinic [address] [place] [address] 08/12/2025 1:40 PM EST Office Visit [facility] Multidisciplinary Oncology Clinic [address] [place] [address] Joi Stewart MD 800 [facility] Tete Baker [facility] [address] [place] [address] 09/04/2025 10:00 AM EST Appointment [facility] [address] [facility] 5th Floor Wing [address], [address] [place] [address] 09/04/2025 11:00 AM EST Office Visit [facility] [address] [facility] 5th Floor Wing [address], [address] [place] [address] Hilary Cordova MD [address] [facility] [address] [place] [address] documented as of this encounter Goals Goal [...] Total DLP (Dose-Length Product): 640.83 mGy.cm (accession [id number]), 640.83 mGy.cm (accession [id number]). Please note: The reported value represents the [...] Total DLP (Dose-Length Product): 640.83 mGy.cm (accession [id number]),640.83 mGy.cm (accession [id number]). Please note: The reported valuerepresents the total [...] Total DLP (Dose-Length Product): 640.83 mGy.cm (accession [id number]), 640.83 mGy.cm (accession [id number]). Please note: The reported value represents the [...] Total DLP (Dose-Length Product): 640.83 mGy.cm (accession [id number]),640.83 mGy.cm (accession [id number]). Please note: The reported valuerepresents the total [...] documented as of this encounter Care Teams Dispute Specialist Relationship Specialty Start Date End Date Natalia Wayne, ELECTRONIC SERVICE TECHNICIAN [address] [place] [id number] PCP - General 12/10/24 documented as of this encounter
--- OUTSIDE RECORDS SUMMARY | 2025-04-22 14:50 | XMS_ITS | Encounter Summary ---
Author Organization Healthcare Address [address] [place] [address] Care Team Providers Care Automotive Manufacturer Name Role Phone Natalia Wayne YVONNE Primary Care Provider [phone] Encounter Details Date Type Department Care Team (Latest Contact Info) Description 04/22/2025 2:50 PM EDT Clinical Support [facility] Multidisciplinary Oncology Clinic [address] [place] [address] Anika Joya, RN Rectal cancer (CMS/HCC) Social [...] time in the past 12 m [facility], were you homeless or living [...] PM EDT Appointment [facility] [address] [place] [address] Manoj Fowler MD [address] [facility] [address] [place] [address] 08/12/2025 1:30 PM EST Clinical Support [facility] Multidisciplinary Oncology Clinic [address] [place] [address] 08/12/2025 1:40 PM EST Office Visit [facility] Multidisciplinary Oncology Clinic [address] [place] [address] Joi Stewart MD [address] [facility] [address] [place] [address] 09/04/2025 10:00 AM EST Appointment [facility] Vascular Lab [address] [place] [address] 09/04/2025 11:00 AM EST Office Visit [facility] Comprehensive Vascular Clinic [address] [place] [address] [address] [place] [address] Hilary Cordova MD [address] [facility] [address] [place] [address] documented as of this encounter Goals Goal [...] Panel, Plasma (04/22/2025 3:09 PM EDT) Pathologist [facility] Glucose, Plasma 120(H) 74 - 99 mg/dL 04/22/2025 4:12 PM EDT [facility] BUN, Plasma 13 8 - 23 mg/dL 04/22/2025 4:12 PM EDT [facility] Creatinine, Plasma 1.33(H) 0.60 - 1.10 mg/dL 04/22/2025 4:12 PM EDT [facility] BUN/Creatinine Ratio 10 04/22/2025 4:12 PM EDT [facility] Sodium, Plasma 139 136 - 145 mmol/L 04/22/2025 4:12 PM EDT [facility] Potassium, Plasma 3.6 3.6 - 4.9 mmol/L 04/22/2025 4:12 PM EDT [facility] Chloride, Plasma 105 97 - 107 mmol/L 04/22/2025 4:12 PM EDT [facility] CO2, Plasma 23 22 - 29 mmol/L 04/22/2025 4:12 PM EDT [facility] Anion Gap 11 6 - 16 mmol/L 04/22/2025 4:12 PM EDT [facility] Total Calcium, Plasma 9.3 8.9 - 10.2 mg/dL 04/22/2025 4:12 PM EDT [facility] Total Protein 6.3 6.3 - 7.9 g/dL 04/22/2025 4:12 PM EDT [facility] Albumin, Plasma 3.6 3.5 - 5.2 g/dL 04/22/2025 4:12 PM EDT [facility] AST, Plasma 34 10 - 35 U/L 04/22/2025 4:12 PM EDT [facility] Comment:Hemolyzed, result ma y be falsely increased. ALT, Plasma 44(H) 10 - 35 U/L 04/22/2025 4:12 PM EDT [facility] Alkaline Phosphatase, Plasma 82 46 - 142 U/L 04/22/2025 4:12 PM EDT [facility] Total Bilirubin, Plasma 0.3 0.2 - 1.1 mg/dL 04/22/2025 4:12 PM EDT [facility] eGFRcr 41.8 mL/min/1.7 3m*2 04/22/2025 4:12 PM EDT [facility] Comment:Reported eGFRcr in m L/min/1.73m2 is based the CKD-EPI 2020 equation that does not use a race coefficient. Blood Blood sample taken from central line / Unknown (Port) Long-term Catheter / Unknown 04/22/2025 3:09 PM EDT 04/22/2025 3:39 PM EDT us Joi Stewart MD LAB BLOOD ORDERABLES Final Res ult [facility] [address] [place] [address] * CEA, Serum (04/22/2025 3:09 PM EDT) CEA, Serum 1.9 <4.0 ng/mL 04/22/2025 5:10 PM EDT [facility] Blood Blood sample taken from central line / Unknown (Port) Long-term Catheter / Unknown 04/22/2025 3:09 PM EDT 04/22/2025 3:38 PM EDT Narrative [facility] - 04/22/2025 5:10 PM EDT Normal range for smokers: < 5.5 ng/ml Normal range for non-smokers: <=4.0 ng/ml Performed by [employer] electrochemiluminescent immunoassay. Results obtained with different test methods or kits cannot be used interchangeably. us Joi Stewart MD LAB BLOOD ORDERABLES Final Res ult [facility] [address] [place] [address] * (ABNORMAL) CBC and Differential (04/22/2025 3:09 PM EDT) WBC Count 6.48 3.70 - 10.30 10*3/uL LAB HEMATOLOGY METHOD 04/22/2025 4:01 PM EDT [facility] RBC Count 3.45(L) 3.90 - 5.20 10*6/uL LAB HEMATOLOGY METHOD 04/22/2025 4:01 PM EDT [facility] HGB 11.7 11.2 - 15.7 g/dL LAB HEMATOLOGY METHOD 04/22/2025 4:01 PM EDT [facility] HCT 34.1 34.0 - 45.0 % LAB HEMATOLOGY METHOD 04/22/2025 4:01 PM EDT [facility] Platelet Count 170 155 - 369 10*3/uL LAB HEMATOLOGY METHOD 04/22/2025 4:01 PM EDT [facility] MCV 99(H) 79 - 98 fL LAB HEMATOLOGY METHOD 04/22/2025 4:01 PM EDT [facility] MCH 33.9(H) 26.0 - 32.0 pg LAB HEMATOLOGY METHOD 04/22/2025 4:01 PM EDT [facility] MCHC 34.3 30.7 - 35.5 g/dL LAB HEMATOLOGY METHOD 04/22/2025 4:01 PM EDT [facility] RDW 15.7(H) 11.5 - 14.5 % LAB HEMATOLOGY METHOD 04/22/2025 4:01 PM EDT [facility] MPV 9.8 8.8 - 12.5 fL LAB HEMATOLOGY METHOD 04/22/2025 4:01 PM EDT [facility] nRBC 0.0 <=0.0 per 100 WBCs LAB HEMATOLOGY METHOD 04/22/2025 4:01 PM EDT [facility] Differential Type Automated LAB HEMATOLOGY METHOD 04/22/2025 4:01 PM EDT [facility] Neutrophils % 67 % LAB HEMATOLOGY METHOD 04/22/2025 4:01 PM EDT [facility] Lymphocytes % 18 % LAB HEMATOLOGY METHOD 04/22/2025 4:01 PM EDT [facility] Monocytes % 11 % LAB HEMATOLOGY METHOD 04/22/2025 4:01 PM EDT [facility] Eosinophils % 3 % LAB HEMATOLOGY METHOD 04/22/2025 4:01 PM EDT [facility] Basophils % 1 % LAB HEMATOLOGY METHOD 04/22/2025 4:01 PM EDT [facility] Immature Granulocytes % 0 % LAB HEMATOLOGY METHOD 04/22/2025 4:01 PM EDT [facility] Neutrophils Absolute 4.45 1.60 - 6.10 10*3/uL LAB HEMATOLOGY METHOD 04/22/2025 4:01 PM EDT [facility] Lymphocytes Absolute 1.14(L) 1.20 - 3.90 10*3/uL LAB HEMATOLOGY METHOD 04/22/2025 4:01 PM EDT [facility] Monocytes Absolute 0.68 0.30 - 0.90 10*3/uL LAB HEMATOLOGY METHOD 04/22/2025 4:01 PM EDT [facility] Eosinophils Absolute 0.16 0.00 - 0.50 10*3/uL LAB HEMATOLOGY METHOD 04/22/2025 4:01 PM EDT [facility] Basophils Absolute 0.03 0.00 - 0.10 10*3/uL LAB HEMATOLOGY METHOD 04/22/2025 4:01 PM EDT [facility] Immature Granulocytes Absolute 0.02 0.00 - 0.06 10*3/uL LAB HEMATOLOGY METHOD 04/22/2025 4:01 PM EDT [facility] Blood Blood sample taken from central line / Unknown (Port) Long-term Catheter / Unknown 04/22/2025 3:09 PM EDT 04/22/2025 3:47 PM EDT Narrative [facility] - 04/22/2025 4:01 PM EDT Therapeutic decision making should be based on absolute values, rather than percentages. us Joi Stewart MD LAB BLOOD ORDERABLES Final Res ult [facility] [address] [place] [address] documented in this encounter Visit Diagnoses Diagnosis [...] documented as of this encounter Care Teams Automotive Manufacturer Relationship Specialty Start Date End Date Natalia Wayne APRN [address] [place] [address] PCP - General 12/10/24 documented as of this encounter
--- OUTSIDE RECORDS SUMMARY | 2025-04-22 15:00 | XMS_ITS | Encounter Summary ---
Author Organization Healthcare Address [address] [place] [address] Care Team Providers Care Diplomatic Interpreter/Translator Name Role Phone Natalia Wayne CHILD CARE CENTER ADMINISTRATOR Primary Care Provider [phone] Reason for Visit * Reason Comments Follow-up Rectal cancer Encounter Details Date Type Department Care Team ([facility] st Contact Info) Description 04/22/2025 3:00 PM EDT Office Visit [facility] Multidisciplinary Oncology Clinic [address] [place] [address] Joi Stewart MD 800 [facility] [address] [place] [address] Rectal cancer (CMS/HCC) (Primary Dx) [...] any time in the past 12 m [facility], were you homeless or living [...] refused to cover infusion 5FU) 10/21/24-10/24/24: hospitalized [place] with marked dehydration from severe diarrhea due [...] course XRT). Pt will receive XRT at [place] but 5FU civi through due to insurance restrictions (insurance would not approve 5FU civi to be given at [place], but we were able to get coverage for 5FU civi at ). After completion of chemoXRT, would need 4 months FOLFOX to complete total neoadjuvant therapy for clinical stage III rectal cancer prior to surgical resection--depending on tolerance. 12/25/24: first XRT in [place] 12/24/24: start concurrent 5FU infusion with XRT (5FU civi 225mg/m2 iv over 24 hrs daily on days 1-7for 5 weeks concurrent with XRT--long course XRT). Pt will receive XRT at [place] but 5FU civi through due to insurance restrictions (insurance would not approve 5FU civi to be given at [place], but we were able to get coverage [...] --currently getting FOLFOX with Dr. Yip in [place], tolerating well Follow up - Pending CT CAP from today - To complete FOLFOX with Dr. Yip in [place] - We will follow up after she finished, attempt same day with Dr. Fowler 07/30 - 07/30/25: flex sig sched with Dr. Manoj Fowler Patient and family encouraged to call if any problems or concerns prior to next visit. Radiation oncologist Shayy Ovalle. Dr. Mariia Marks phone [phone] >30 minutes was spent on this encounter; including preparing to see the patient, which involved review/interpretation of diagnostics and reports; obtaining and/or reviewing separately obtained history; performing appropriate physical exam; ordering/scheduling medications, tests or procedures; communicating findings and counseling/educating the patient, family and/or caregiver; documentation inEMR; and care coordination. Joi Stewart MD Division of Medical Oncology [facility] Oncology History: Oncology History Overview Note [...] refused to cover infusion 5FU) 10/21/24-10/24/24: hospitalized [place] with marked dehydration from severe diarrhea due [...] course XRT). Pt will receive XRT at [place] but 5FU civi through due to insurance restrictions (insurance would not approve 5FU civi to be given at [place], but we were able to get coverage [...] sched with Dr. Manoj Fowler Rectal cancer ([facility]/HCC) 08/06/2024 Cancer Staged Staging form: Colon and Rectum, AJCC 8th Edition, Clinical stage from 08/06/2024: Stage IIIB (cT3, cN1, cM0) - Signed by Manoj Fowler MD on 08/13/2024 08/13/2024 Initial Diagnosis Rectal cancer ([facility]) 12/16/2024 - 12/16/2024 Chemotherapy mitoMYcin (Mutamycin) injection [...] Continue neoadjuvant FOLFOX with Dr. Yip in [place]. Will see her back here in August 2025 after flex sig with Dr. Fowler. documented in this encounter Plan of Treatment Upcoming Encounters Date Type Department Care Team (Late st Contact Info) Description 07/30/2025 1:00 PM EDT Appointment [facility] [address] [place] [address] Manoj Fowler MD [id number] [place] [address] 08/12/2025 1:30 PM EST Clinical Support [facility] [address] [place] [address] 08/12/2025 1:40 PM EST Office Visit [facility] Multidisciplinary Oncology Clinic [address] [place] [address] Joi Stewart MD 800 [facility] [address] [place] [address] 09/04/2025 10:00 AM EST Appointment [facility] Vascular Lab [address] [place] [address] 09/04/2025 11:00 AM EST Office Visit [facility] Comprehensive Vascular Clinic [address] [place] [address] [address] [place] [address] Hilary Cordova MD [id number] [place] [address] Scheduled Orders Name Type Priority [...] documented as of this encounter Care Teams Diplomatic Interpreter/Translator Relationship Specialty Start Date End Date Natalia Wayne, YVONNE [address] [place] [address] PCP - General 12/10/24 documented as of this encounter
[2025-06-11] VITALS (7 sets, daily range): BP systolic 157–175; BP diastolic 63–75; PULSE 55–60; RESP 18; TEMP 36.8; O2SAT 97–99
--- OUTSIDE RECORDS SUMMARY | 2025-06-11 10:04 | XMS_ITS | Encounter Summary ---
Author Organization [facility] Address [address] [place] [address] Care Team Providers Care Photographic Lithographer Name Role Phone Natalia Wayne YVONNE Primary Care Provider [phone] Encounter Details Date Type Department Care Team [...] any time in the past 12 m [facility], were you homeless or living in [...] PM EDT Appointment [facility] [address] [place] [address] Manoj Fowler MD [address] [facility] [address] [place] [address] 08/12/2025 1:30 PM EST Clinical Support [facility] Multidisciplinary Oncology Clinic [address] [place] [phone] 08/12/2025 1:40 PM EST Office Visit [facility] Multidisciplinary Oncology Clinic [address] [place] [phone] Joi Stewart MD [address] [facility] [address] [facility] [address] [place] [address] 09/04/2025 10:00 AM EST Appointment [facility] [address] [place] [address] Floor [address] [place] [address] 09/04/2025 11:00 AM EST Office Visit [facility] [address] [place] [address] [address] [place] [address] Hilary Cordova MD [address] [facility] [address] [place] [address] documented as of this encounter [...] documented as of this encounter Care Teams Photographic Lithographer Relationship Specialty Start Date End Date Natalia Wayne, YVONNE [address] [place] [address] PCP - General 12/10/24 documented as of this encounter
--- OUTSIDE RECORDS SUMMARY | 2025-06-11 10:04 | XMS_ITS ---
Author Organization [facility] Address [address] [place] [address] Care Team Providers Care Drain Layer Name Role Phone Natalia Wayne APRN Primary Care Provider [phone] Active Problems Problem Noted Date Diagnosed Date [...] 5-FU (Adrucil) infusion - for home use ([facility] supplied) CADD 100ML Therapy Complete Joi Stewart MD 1 of 1 cycle started MitoMYcin + Fluorouracil Every 28 Days x 2 + XRT 12/17/19 25 12/13/2024 5-FU CHEMO INFUSION ([facility] SUPPLIED) CADD ORDERABLEmitoMYcin (Mutamycin) Other (See Comments) Joi Stewart MD Treatment not started Resolved Problems Problem Noted Date Diagnosed Date Resolved Date Large bowel obstruction 08/31/2024 120 01/2024
--- OUTSIDE RECORDS SUMMARY | 2025-06-11 10:04 | XMS_ITS | Clinical Summary ---
Author Organization [facility] Address [address] [place] [address] Care Team Providers Care Wool Supplier Name Role Phone Unavailable Primary Care Provider [...] 1999 ZOSTER VACCINE (1 of 2) 1999 RSV Vaccine - Adults (1 - 1-dose 75+ series) COVID-19 Vaccine ( - 2023- season) 2025 INFLUENZA VACCINE 07/02/2025
--- OUTSIDE RECORDS SUMMARY | 2025-06-11 10:04 | XMS_ITS | Encounter Summary ---
Author Organization [facility] Address [address] [place] [address] Care Team Providers Care Fiber Optics Supervisor Name Role Phone Pcp, No Primary Care Provider Natalia Hector APRN Primary Care Provider [phone] Encounter Details Date Type Department Care Team (Late st Contact Info) Description 11/14/2024 Orders Only External Location [address] [place] [address] Provider, External Social History Tobacco Use Types [...] PM EDT Appointment [facility] [address] [place] [address] Manoj Fowler [facility] [address] [facility] [address] [place] [address] 08/12/2025 1:30 PM EST Clinical Support [facility] Multidisciplinary Oncology Clinic [address] [place] [address] 08/12/2025 1:40 PM EST Office Visit [facility] Multidisciplinary Oncology Clinic [address] [place] [address] Joi Stewart MD [address] [facility] Tete Baker [facility] [address] [place] [phone] 09/04/2025 10:00 AM EST Appointment [facility] [address] [facility] 5th Floor [address] [place] [address] 09/04/2025 11:00 AM EST Office Visit [facility] [address] 5th Floor [address] [place] [address] Hilary Cordova MD [address] [place] [address] documented as of this encounter [...] documented as of this encounter Care Teams Fiber Optics Supervisor Relationship Specialty Start Date End Date Pcp, Mady [address] [place] [address] PCP - General Family Medicine 06/11/24 12/09/24 Natalia Wayne, YVONNE [address] [place] [address] PCP - General 12/10/24 documented as of this encounter
--- OUTSIDE RECORDS SUMMARY | 2025-06-11 10:04 | XMS_ITS | Clinical Summary ---
Author Organization [facility] Address [address] [place] [address] Care Team Providers Care Game Bird Farmer Name Role Phone Natalia Wayne YVONNE Primary Care Provider [phone] Allergies No known active allergies Medications rosuvastatin [...] EDT Office Visit [facility] [address] [place] [phone] Joi Stewart MD Rectal cancer (CMS/HCC) (Primary Dx) 04/22/2025 2:50 PM EDT Clinical Support [facility] [address] [place] [phone] Anika Joya, RN Rectal cancer (CMS/HCC) 04/22/2025 11:26 AM EDT - 04/22/2025 11:59 PM EDT Hospital Encounter [facility] [address] [place] [address] Rectal cancer (CMS/HCC) Discharge Disposition: Home or Self Care 04/22/2025 Travel 03/31/2025 Telephone [facility] [address] [place] [phone] Manoj Fowler MD 03/31/2025 Telephone [facility] [address] [place] [phone] Manoj Fowler MD Flexible Sigmoidoscopy from [...] th e electric, gas, oil, or water [employer] threatened to shut off services in your [...] PM EDT Appointment [facility] [address] [place] [phone] Manoj Fowler MD [address] [facility] [address] [place] [address] 08/12/2025 1:30 PM EST Clinical Support [facility] Multidisciplinary Oncology Clinic [address] [place] [phone] 08/12/2025 1:40 PM EST Office Visit [facility] Multidisciplinary Oncology Clinic [address] [place] [address] Joi Stewart MD [address] [facility] [address] [place] [address] 09/04/2025 10:00 AM EST Appointment [facility] [address] [facility] 5th Floor [address] [place] [address] 09/04/2025 11:00 AM EST Office Visit [facility] [address] [place] [address] Hilary Cordova MD [address] [facility] [address] [place] [address] Health Maintenance Due Date Last Done Comments [facility]-Bone Density Scan 1950 [facility]-Medicare Annual Wellness (AWV) 1950 [facility]-Infant/Child/Adol SDOH Screenings 1950 [facility]-DTaP,Tdap,and Td Vaccine s (1 - Tdap) 1968 [facility]-Pneumococcal Vaccine: 50 + Years (1 of 2 - PCV) 1968 [facility]-Zoster Vaccines (1 of 2) 1968 CT Colonography 1994 FIT-DNA 1994 FIT 1994 FOBT 1994 Sigmoidoscopy 1994 [id number] Vaccine (2 - Cady risk series) 01/07/2021 [...] LAB HEMATOLOGY METHOD 04/22/2025 4:01 PM EDT [facility] RBC Count 3.45(L) 3.90 - 5.20 10*6/uL LAB HEMATOLOGY METHOD 04/22/2025 4:01 PM EDT [facility] HGB 11.7 11.2 - 15.7 g/dL LAB HEMATOLOGY METHOD 04/22/2025 4:01 PM EDT [facility] HCT 34.1 34.0 - 45.0 % LAB HEMATOLOGY METHOD 04/22/2025 4:01 PM EDT [facility] Platelet Count 170 155 - 369 10*3/uL LAB HEMATOLOGY METHOD 04/22/2025 4:01 PM EDT [facility] MCV 99(H) 79 - 98 fL LAB HEMATOLOGY METHOD 04/22/2025 4:01 PM EDT [facility] MCH 33.9(H) 26.0 - 32.0 pg LAB HEMATOLOGY METHOD 04/22/2025 4:01 PM EDT [facility] MCHC 34.3 30.7 - 35.5 g/dL LAB HEMATOLOGY METHOD 04/22/2025 4:01 PM EDT [facility] RDW 15.7(H) 11.5 - 14.5 % LAB HEMATOLOGY METHOD 04/22/2025 4:01 PM EDT [facility] MPV 9.8 8.8 - 12.5 fL LAB HEMATOLOGY METHOD 04/22/2025 4:01 PM EDT [facility] nRBC 0.0 <=0.0 per 100 WBCs LAB HEMATOLOGY METHOD 04/22/2025 4:01 PM EDT [facility] Differential Type Automated LAB HEMATOLOGY METHOD 04/22/2025 4:01 PM EDT [facility] Neutrophils % 67 % LAB HEMATOLOGY METHOD 04/22/2025 4:01 PM EDT [facility] Lymphocytes % 18 % LAB HEMATOLOGY METHOD 04/22/2025 4:01 PM EDT [facility] Monocytes % 11 % LAB HEMATOLOGY METHOD 04/22/2025 4:01 PM EDT [facility] Eosinophils % 3 % LAB HEMATOLOGY METHOD 04/22/2025 4:01 PM EDT [facility] Basophils % 1 % LAB HEMATOLOGY METHOD 04/22/2025 4:01 PM EDT [facility] Immature Granulocytes % 0 % LAB HEMATOLOGY METHOD 04/22/2025 4:01 PM EDT [facility] Neutrophils Absolute 4.45 1.60 - 6.10 10*3/uL LAB HEMATOLOGY METHOD 04/22/2025 4:01 PM EDT [facility] Lymphocytes Absolute 1.14(L) 1.20 - 3.90 10*3/uL LAB HEMATOLOGY METHOD 04/22/2025 4:01 PM EDT [facility] Monocytes Absolute 0.68 0.30 - 0.90 10*3/uL LAB HEMATOLOGY METHOD 04/22/2025 4:01 PM EDT [facility] Eosinophils Absolute 0.16 0.00 - 0.50 10*3/uL LAB HEMATOLOGY METHOD 04/22/2025 4:01 PM EDT [facility] Basophils Absolute 0.03 0.00 - 0.10 10*3/uL LAB HEMATOLOGY METHOD 04/22/2025 4:01 PM EDT [facility] Immature Granulocytes Absolute 0.02 0.00 - 0.06 10*3/uL LAB HEMATOLOGY METHOD 04/22/2025 4:01 PM EDT [facility] Blood Blood sample taken from central line / Unknown (Port) Long-term Catheter / Unknown 04/22/2025 3:09 PM EDT 04/22/2025 3:47 PM EDT Narrative [facility] - 04/22/2025 4:01 PM EDT Therapeutic decision making should be based on absolute values, rather than percentages. us Joi Stewart MD LAB BLOOD ORDERABLES Final Res ult [facility] [address] [place] [address] * CEA, Serum (04/22/2025 3:09 PM EDT) CEA, Serum 1.9 <4.0 ng/mL 04/22/2025 5:10 PM EDT [facility] Blood Blood sample taken from central line / Unknown (Port) Long-term Catheter / Unknown 04/22/2025 3:09 PM EDT 04/22/2025 3:38 PM EDT Narrative [facility] - 04/22/2025 5:10 PM EDT Normal range for smokers: < 5.5 ng/ml Normal range for non-smokers: <=4.0 ng/ml Performed by Karin electrochemiluminescent immunoassay. Results obtained with different test methods or kits cannot be used interchangeably. us Joi Stewart MD LAB BLOOD ORDERABLES Final Res ult [facility] [address] [place] [address] * (ABNORMAL) Comprehensive Metabolic Panel, Plasma (04/22/2025 3:09 PM EDT) Glucose, Plasma 120(H) 74 - 99 mg/dL 04/22/2025 4:12 PM EDT [facility] BUN, Plasma 13 8 - 23 mg/dL 04/22/2025 4:12 PM EDT [facility] Creatinine, Plasma 1.33(H) 0.60 - 1.10 mg/dL 04/22/2025 4:12 PM EDT [facility] BUN/Creatinine Ratio 10 04/22/2025 4:12 PM EDT [facility] Sodium, Plasma 139 136 - 145 mmol/L 04/22/2025 4:12 PM EDT [facility] Potassium, Plasma 3.6 3.6 - 4.9 mmol/L 04/22/2025 4:12 PM EDT [facility] Chloride, Plasma 105 97 - 107 mmol/L 04/22/2025 4:12 PM EDT [facility] CO2, Plasma 23 22 - 29 mmol/L 04/22/2025 4:12 PM EDT [facility] Anion Gap 11 6 - 16 mmol/L 04/22/2025 4:12 PM EDT [facility] Total Calcium, Plasma 9.3 8.9 - 10.2 mg/dL 04/22/2025 4:12 PM EDT [facility] Total Protein 6.3 6.3 - 7.9 g/dL 04/22/2025 4:12 PM EDT [facility] Albumin, Plasma 3.6 3.5 - 5.2 g/dL 04/22/2025 4:12 PM EDT [facility] AST, Plasma 34 10 - 35 U/L 04/22/2025 4:12 PM EDT [facility] Comment:Hemolyzed, result ma y be falsely increased. ALT, Plasma 44(H) 10 - 35 U/L 04/22/2025 4:12 PM EDT [facility] Alkaline Phosphatase, Plasma 82 46 - 142 U/L 04/22/2025 4:12 PM EDT [facility] Total Bilirubin, Plasma 0.3 0.2 - 1.1 mg/dL 04/22/2025 4:12 PM EDT [facility] eGFRcr 41.8 mL/min/1.7 3m*2 04/22/2025 4:12 PM EDT [facility] Comment:Reported eGFRcr in m L/min/1.73m2 is based the CKD-EPI 2020 equation that does not use a race coefficient. Blood Blood sample taken from central line / Unknown (Port) Long-term Catheter / Unknown 04/22/2025 3:09 PM EDT 04/22/2025 3:39 PM EDT us Joi Stewart MD LAB BLOOD ORDERABLES Final Res ult [facility] [address] [place] [address] * CT Abdomen Pelvis w IV Contrast [...] Total DLP (Dose-Length Product): 640.83 mGy.cm (accession [id number]), 640.83 mGy.cm (accession [id number]). Please note: The reported value represents the [...] Total DLP (Dose-Length Product): 640.83 mGy.cm (accession [id number]),640.83 mGy.cm (accession [id number]). Please note: The reported valuerepresents the total [...] Total DLP (Dose-Length Product): 640.83 mGy.cm (accession [id number]), 640.83 mGy.cm (accession [id number]). Please note: The reported value represents the [...] Total DLP (Dose-Length Product): 640.83 mGy.cm (accession [id number]),640.83 mGy.cm (accession [id number]). Please note: The reported valuerepresents the total [...] Antibody Negative Negative 08/31/2024 6:21 PM EST [facility] Blood Venous blood specimen / Unknown Venipuncture / Unknown 08/31/2024 5:22 PM EST 08/31/2024 5:40 PM EST us Meño Cano MD LAB BLOOD ORDERABLES Final Re sult [facility] [address] [place] [address] * Colonoscopy (07/22/2024 9:29 AM EDT) Anatomical [...] medications. Staff Staff Role Robert Bueno Endo Maintenance Helper Utility Engineer Shruti Gutierrez CRNA CRNA Gantt, Randolph Endo Maintenance Helper Utility Engineer Richard Borja MD Proceduralist Marcelina Arana Nurse [...] of bowel preparation was evaluated using the [place] Bowel Preparation Scale with scores of: right [...] Date Diagnosed Date Autogenerated Problem 03/31/[address] [facility] [place] [phone] MEDICARE Member Subscriber Plan / Payer (Ef fective 2015-Present) Name:Lashae Sim Member ID:[id number] Relation to Subscriber:Self Name:Lashae Sim Subscriber ID:[id number] Payer ID:[email or web address] Group ID:Not on file Type:Medicare Address: [place] [phone] Advance Directives * Full Code (Latest Code Status on File) Date Activated Date Inactivated Comments 09/02/2024 9:48 PM 09/05/2024 12:25 PM Question Answer Comments Patient has decision-making capacity? Yes * Full Code Date Activated Date Inactivated Comments 08/31/2024 7:20 PM 09/02/2024 9:48 PM Question Answer Comments Patient has decision-making capacity? Yes Care Teams Game Bird Farmer Relationship Specialty Start Date End Date Natalia Wayne APRN [address] [place] [id number] PCP - General 12/10/24
[2025-06-11 10:24] LABS: Hematocrit 37.2 % (37.0-47.0); Hemoglobin 12.7 g/dL (12.2-16.2); Immature Granulocytes % 4.0 %; Mean Corpuscular HGB Conc 34.1 g/dL (31.8-35.4); Mean Corpuscular Hemoglobin 35.0 pg (27.0-31.2); Mean Corpuscular Volume 102.5 fl (81-99); Nucleated Red Blood Cells % 0.2 %; Platelet Count 204 K/mm3 (142-424); Red Blood Count 3.63 M/mm3 (4.20-5.40); Red Cell Distribution Width-SD 65.5 fL; White Blood Count 8.1 K/mm3 (4.8-10.8)
[2025-06-11 10:34] LABS: Alanine Aminotransferase 31 U/L (12-78); Albumin Level 3.4 g/dl (3.5-5.0); Albumin/Globulin Ratio 1.3 (1.1-1.8); Alkaline Phosphatase 77 U/L (38-126); Anion Gap 7.4 mEq/L (5-15); Aspartate Amino Transferase 31 U/L (14-36); Bilirubin,Total 0.5 mg/dl (0.2-1.3); Blood Urea Nitrogen 27 mg/dl (7-17); Calcium 9.7 mg/dl (8.4-10.2); Carbon Dioxide 22 mmol/L (22.0-30.0); Chloride 109 mmol/L (98-107); Creatinine,Serum 1.40 mg/dl (0.52-1.04); Estimated Glomerular Filt Rate 37 ml/min (>60); GFR (African American) 44 ML/MIN (>60); Globulin 2.7 g/dL (1.3-3.2); Glucose 81 mg/dl (74-100); Potassium 3.4 mmoL/L (3.5-5.1); Sodium 135 mmol/L (136-145); Total Protein,Serum 6.1 g/dl (6.3-8.2)
[2025-06-11] MEDS: ONDANSETRON 4MG ODT 16 MG (11:29)
[2025-06-11] MEDS: DEXAMETHASONE 4MG TABLET 12 MG (11:29)
[2025-06-11] MEDS: POTASSIUM CHLORIDE 20MEQ TAB 40 MEQ PO (11:29)
[2025-06-11] MEDS: DEXTROSE 5 % IN WATER 100 ML 25 ML IV (11:30)
[2025-06-11] MEDS: WATER IV ×2 (12:15→12:16)
[2025-06-11] MEDS: DEXTROSE 5% IV ×2 (12:15→12:16)
[2025-06-11] MEDS: LEUCOVORIN CALCIUM IV (12:15)
[2025-06-11] MEDS: OXALIPLATIN IV (12:16)
[2025-06-11 12:36] LABS: Macrocytosis 1+; Total Cells Counted 100
[2025-06-11] MEDS: FLUOROURACIL 500MG/10ML VIAL 550 MG IV (14:13)
[2025-06-11] MEDS: SODIUM CHLORIDE IV (15:00)
[2025-06-11] MEDS: FLUOROURACIL IV (15:00)
[2025-06-11] MEDS: SODIUM CHLORIDE 0.9% 10ML FLUSH SYRINGE 10 ML IV (15:09)
[2025-06-11] MEDS: DEX 5% IN WATER 100ML IVPB 100 ML IV (15:10)
== END 2025-06-11 15:10 | disposition home or self-care (01) ==
LOC: INF 09:54
PROVIDERS: PCP Nurse Practitioner Family; Visit Provider Internal Medicine Medical Oncology
DX: Z51.11 Encounter for antineoplastic chemotherapy (principal); C20 Malignant neoplasm of rectum; C77.5 Secondary and unspecified malignant neoplasm of intrapelvic lymph nodes
CPT/HCPCS: 80053; 85007; 85025; 85027; 96368; 96413; 96416; 96417; J0640; J7060; J8540; J9190; J9263; Q0162

== ENCOUNTER 2025-06-13 12:42 | Outpatient (CLI) | payer MEDICARE, SELFPAY ==
[2025-06-13] MEDS: SODIUM CHLORIDE 0.9% 10ML FLUSH SYRINGE 10 ML IV (12:55)
== END 2025-06-13 12:55 | disposition home or self-care (01) ==
LOC: INF 12:43
PROVIDERS: PCP Nurse Practitioner Family; Visit Provider Internal Medicine Medical Oncology
DX: C20 Malignant neoplasm of rectum (principal); C77.5 Secondary and unspecified malignant neoplasm of intrapelvic lymph nodes
CPT/HCPCS: 99211; G0463; J1642

== ENCOUNTER 2025-06-25 09:45 | Outpatient (CLI) | payer MEDICARE, SELFPAY ==
[2025-06-25 09:51] VITALS: BMI 22.2
--- OUTSIDE RECORDS SUMMARY | 2025-06-25 09:58 | XMS_ITS | Encounter Summary ---
Author Organization Healthcare Address [address] [place] [address] Care Team Providers Care Guest Experience Captain Name Role Phone Pcp, No Primary Care Provider Natalia Hector APRN Primary Care Provider [phone] Encounter Details Date Type Department Care Team (Late st Contact Info) Description 11/14/2024 Orders Only External Location [address] [place] [address] Provider, External Social History Tobacco Use Types [...] PM EDT Appointment [facility] [address] [place] [phone] Manoj Fowler [facility] [address] [facility] [address] [place] [address] 08/12/2025 1:30 PM EST Clinical Support [facility] Multidisciplinary Oncology Clinic [address] [place] [phone] 08/12/2025 1:40 PM EST Office Visit [facility] Multidisciplinary Oncology Clinic [address] [place] [address] Joi Stewart MD [address] [facility] Tete [address] [facility] [address] [place] [phone] 09/04/2025 10:00 AM EST Appointment [facility] [address] [facility] 5th Floor [address] [place] [address] 09/04/2025 11:00 AM EST Office Visit [facility] [address] [place] [address] Hilary Cordova MD [address] [place] [address] documented as of this encounter [...] documented as of this encounter Care Teams Guest Experience Captain Relationship Specialty Start Date End Date Pcp, Mady [address] [place] [address] PCP - General Family Medicine 06/11/24 12/09/24 Natalia Wayne, YVONNE [address] [place] [address] PCP - General 12/10/24 documented as of this encounter
--- OUTSIDE RECORDS SUMMARY | 2025-06-25 09:58 | XMS_ITS | Clinical Summary ---
Author Organization [facility] Address [address] [place] [address] Care Team Providers Care High School French Teacher Name Role Phone Unavailable Primary Care Provider [...] (1 - 1-dose 75+ series) INFLUENZA VACCINE 05/02/2025 COVID-19 Vaccine ( - season) 2025
--- OUTSIDE RECORDS SUMMARY | 2025-06-25 09:58 | XMS_ITS ---
Author Organization [facility] Address [address] 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 Hypertension 09/02/2024 Rectal cancer 08/13/2024 Cancer Staging:Clinical stage from 08/06/2024:Stage IIIB(cT3, cN1, cM0) - Signed by Manoj Fowler MD on 08/13/2024 Mass of cecum 08/13/2024 Superior mesenteric artery stenosis 08/08/2024 Tobacco use disorder 06/11/2024 Basal cell carcinoma Overview (12/10/2024): Excised [...] Every 7 Days x 3 + XRT 12/25/1902/04/2025 5-FU (Adrucil) infusion - for home use ([facility] supplied) CADD 100ML Therapy Complete Joi Stewart MD 1 of 1 cycle started MitoMYcin + Fluorouracil Every 28 Days x 2 + XRT 12/17/19 25 12/13/2024 5-FU CHEMO INFUSION ([facility] SUPPLIED) CADD ORDERABLEmitoMYcin (Mutamycin) Other (See Comments) Joi Stewart MD Treatment not started Resolved Problems Problem Noted Date Diagnosed Date Resolved Date Large bowel obstruction 08/31/20240 01/2024 Second hand smoke exposure 06/11/2024 0 06/22/2025
--- OUTSIDE RECORDS SUMMARY | 2025-06-25 09:58 | XMS_ITS | Clinical Summary ---
Author Organization [facility] Address [address] [place] [address] Care Team Providers Care Electrical Engineering Draftsperson Name Role Phone Natalia Wayne YVONNE Primary Care Provider [phone] Allergies No known active allergies Medications rosuvastatin [...] as needed for nausea or vomiting. 03/12/20 Active Active Problems Problem Noted Date Diagnosed [...] Date Large bowel obstruction 08/31/2024 120 01/2024 Second hand smoke exposure 06/11/2024 0 06/22/2025 Encounters Date Type Department Care Team Description 04/22/2025 3:00 PM EDT Office Visit [facility] [address] [place] [phone] Joi Stewart MD Rectal cancer (CMS/HCC) (Primary Dx) 04/22/2025 2:50 PM EDT Clinical Support [facility] On[facility] Clinic [address] [place] [phone] Anika Joya, RN Rectal cancer (CMS/HCC) 04/22/2025 11:26 AM EDT - 04/22/2025 11:59 PM EDT Hospital Encounter [facility] [address] [place] [address] Rectal cancer (CMS/HCC) Discharge Disposition: Home or Self Care 04/22/2025 Travel 03/31/2025 Telephone [facility] [address] [place] [phone] Manoj Fowler MD 03/31/2025 Telephone [facility] [address] [place] [phone] Manoj Fowler MD Flexible Sigmoidoscopy from [...] time in the past 12 m [facility], were you homeless or living in a [...] Info) Description 07/30/2025 1:00 PM EDT Appointment [facility] H Endoscopy [address] [place] [phone] Manoj Fowler MD [address] [facility] [address] [place] [address] 08/12/2025 1:30 PM EST Clinical Support [facility] On[facility] Clinic [address] [place] [address] 08/12/2025 1:40 PM EST Office Visit [facility] [address] [place] [address] Joi Stewart MD [address] [facility] [address] [place] [address] 09/04/2025 10:[address] [facility] Vascular Lab [address] [facility] 5th Floor [address] [place] [address] 09/04/2025 11:00 AM EST Office Visit [facility] [address]th Floor [address] [place] [address] Hilary Cordova MD [address] [facility] [address] [place] [address] Health Maintenance Due Date Last Done Comments [facility]-Bone Density Scan 1950 [facility]-Medicare Annual Wellness (AWV) 1950 [facility]-Infant/Child/Adol SDOH Screenings 1950 [facility]-DTaP,Tdap,and Td Vaccine s (1 - Tdap) 1968 [facility]-Pneumococcal Vaccine: 50 + Years (1 of 2 - PCV) 1968 [facility]-Zoster Vaccines (1 of 2) 1968 CT Colonography 1994 FIT-DNA 1994 FIT 1994 FOBT 1994 Sigmoidoscopy 1994 [id number] Vaccine (2 - Cady risk series) 01/07/2021 [...] LAB HEMATOLOGY METHOD 04/22/2025 4:01 PM EDT [facility] RBC Count 3.45(L) 3.90 - 5.20 10*6/uL LAB HEMATOLOGY METHOD 04/22/2025 4:01 PM EDT [facility] HGB 11.7 11.2 - 15.7 g/dL LAB HEMATOLOGY METHOD 04/22/2025 4:01 PM EDT [facility] HCT 34.1 34.0 - 45.0 % LAB HEMATOLOGY METHOD 04/22/2025 4:01 PM EDT [facility] Platelet Count 170 155 - 369 10*3/uL LAB HEMATOLOGY METHOD 04/22/2025 4:01 PM EDT [facility] MCV 99(H) 79 - 98 fL LAB HEMATOLOGY METHOD 04/22/2025 4:01 PM EDT [facility] MCH 33.9(H) 26.0 - 32.0 pg LAB HEMATOLOGY METHOD 04/22/2025 4:01 PM EDT [facility] MCHC 34.3 30.7 - 35.5 g/dL LAB HEMATOLOGY METHOD 04/22/2025 4:01 PM EDT [facility] RDW 15.7(H) 11.5 - 14.5 % LAB HEMATOLOGY METHOD 04/22/2025 4:01 PM EDT [facility] MPV 9.8 8.8 - 12.5 fL LAB HEMATOLOGY METHOD 04/22/2025 4:01 PM EDT [facility] nRBC 0.0 <=0.0 per 100 WBCs LAB HEMATOLOGY METHOD 04/22/2025 4:01 PM EDT [facility] Differential Type Automated LAB HEMATOLOGY METHOD 04/22/2025 4:01 PM EDT [facility] Neutrophils % 67 % LAB HEMATOLOGY METHOD 04/22/2025 4:01 PM EDT [facility] Lymphocytes % 18 % LAB HEMATOLOGY METHOD 04/22/2025 4:01 PM EDT [facility] Monocytes % 11 % LAB HEMATOLOGY METHOD 04/22/2025 4:01 PM EDT [facility] Eosinophils % 3 % LAB HEMATOLOGY METHOD 04/22/2025 4:01 PM EDT [facility] Basophils % 1 % LAB HEMATOLOGY METHOD 04/22/2025 4:01 PM EDT [facility] Immature Granulocytes % 0 % LAB HEMATOLOGY METHOD 04/22/2025 4:01 PM EDT [facility] Neutrophils Absolute 4.45 1.60 - 6.10 10*3/uL LAB HEMATOLOGY METHOD 04/22/2025 4:01 PM EDT [facility] Lymphocytes Absolute 1.14(L) 1.20 - 3.90 10*3/uL LAB HEMATOLOGY METHOD 04/22/2025 4:01 PM EDT [facility] Monocytes Absolute 0.68 0.30 - 0.90 10*3/uL LAB HEMATOLOGY METHOD 04/22/2025 4:01 PM EDT [facility] Eosinophils Absolute 0.16 0.00 - 0.50 10*3/uL LAB HEMATOLOGY METHOD 04/22/2025 4:01 PM EDT [facility] Basophils Absolute 0.03 0.00 - 0.10 10*3/uL LAB HEMATOLOGY METHOD 04/22/2025 4:01 PM EDT [facility] Immature Granulocytes Absolute 0.02 0.00 - 0.06 10*3/uL LAB HEMATOLOGY METHOD 04/22/2025 4:01 PM EDT [facility] Blood Blood sample taken from central line / Unknown (Port) Long-term Catheter / Unknown 04/22/2025 3:09 PM EDT 04/22/2025 3:47 PM EDT Narrative [facility] - 04/22/2025 4:01 PM EDT Therapeutic decision making should be based on absolute values, rather than percentages. us Joi Stewart MD LAB BLOOD ORDERABLES Final Res ult [facility] [address] [place] [address] * CEA, Serum (04/22/2025 3:09 PM EDT) CEA, Serum 1.9 <4.0 ng/mL 04/22/2025 5:10 PM EDT [facility] Blood Blood sample taken from central line / Unknown (Port) Long-term Catheter / Unknown 04/22/2025 3:09 PM EDT 04/22/2025 3:38 PM EDT Narrative [facility] - 04/22/2025 5:10 PM EDT Normal range for smokers: < 5.5 ng/ml Normal range for non-smokers: <=4.0 ng/ml Performed by Karin electrochemiluminescent immunoassay. Results obtained with different test methods or kits cannot be used interchangeably. us Joi Stewart MD LAB BLOOD ORDERABLES Final Res ult [facility] [address] [place] [address] * (ABNORMAL) Comprehensive Metabolic Panel, Plasma (04/22/2025 3:09 PM EDT) Glucose, Plasma 120(H) 74 - 99 mg/dL 04/22/2025 4:12 PM EDT [facility] BUN, Plasma 13 8 - 23 mg/dL 04/22/2025 4:12 PM EDT [facility] Creatinine, Plasma 1.33(H) 0.60 - 1.10 mg/dL 04/22/2025 4:12 PM EDT [facility] BUN/Creatinine Ratio 10 04/22/2025 4:12 PM EDT [facility] Sodium, Plasma 139 136 - 145 mmol/L 04/22/2025 4:12 PM EDT [facility] Potassium, Plasma 3.6 3.6 - 4.9 mmol/L 04/22/2025 4:12 PM EDT [facility] Chloride, Plasma 105 97 - 107 mmol/L 04/22/2025 4:12 PM EDT [facility] CO2, Plasma 23 22 - 29 mmol/L 04/22/2025 4:12 PM EDT [facility] Anion Gap 11 6 - 16 mmol/L 04/22/2025 4:12 PM EDT [facility] Total Calcium, Plasma 9.3 8.9 - 10.2 mg/dL 04/22/2025 4:12 PM EDT [facility] Total Protein 6.3 6.3 - 7.9 g/dL 04/22/2025 4:12 PM EDT [facility] Albumin, Plasma 3.6 3.5 - 5.2 g/dL 04/22/2025 4:12 PM EDT [facility] AST, Plasma 34 10 - 35 U/L 04/22/2025 4:12 PM EDT [facility] Comment:Hemolyzed, result ma y be falsely increased. ALT, Plasma 44(H) 10 - 35 U/L 04/22/2025 4:12 PM EDT [facility] Alkaline Phosphatase, Plasma 82 46 - 142 U/L 04/22/2025 4:12 PM EDT [facility] Total Bilirubin, Plasma 0.3 0.2 - 1.1 mg/dL 04/22/2025 4:12 PM EDT [facility] eGFRcr 41.8 mL/min/1.7 3m*2 04/22/2025 4:12 PM EDT [facility] Comment:Reported eGFRcr in m L/min/1.73m2 is based the CKD-EPI 2020 equation that does not use a race coefficient. Blood Blood sample taken from central line / Unknown (Port) Long-term Catheter / Unknown 04/22/2025 3:09 PM EDT 04/22/2025 3:39 PM EDT us Joi Stewart MD LAB BLOOD ORDERABLES Final Res ult [facility] [address] [place] [address] * CT Abdomen Pelvis w IV Contrast [...] Total DLP (Dose-Length Product): 640.83 mGy.cm (accession [id number]), 640.83 mGy.cm (accession [id number]). Please note: The reported value represents the [...] Total DLP (Dose-Length Product): 640.83 mGy.cm (accession [id number]),640.83 mGy.cm (accession [id number]). Please note: The reported valuerepresents the total [...] Total DLP (Dose-Length Product): 640.83 mGy.cm (accession [id number]), 640.83 mGy.cm (accession [id number]). Please note: The reported value represents the [...] Total DLP (Dose-Length Product): 640.83 mGy.cm (accession [id number]),640.83 mGy.cm (accession [id number]). Please note: The reported valuerepresents the total [...] Antibody Negative Negative 08/31/2024 6:21 PM EST [facility] Blood Venous blood specimen / Unknown Venipuncture / Unknown 08/31/2024 5:22 PM EST 08/31/2024 5:40 PM EST us Meño Cano MD LAB BLOOD ORDERABLES Final Re sult [facility] [address] [place] [address] * Colonoscopy (07/22/2024 9:29 AM EDT) Anatomical [...] medications. Staff Staff Role Robert Bueno Endo Production Estimator Shruti Gutierrez, Carmine Torres CRNA Endo Production Estimator Richard Borja MD Proceduralist Marcelina Arana Endo [...] of bowel preparation was evaluated using the [place] Bowel Preparation Scale with scores of: right [...] Date Autogenerated Problem 03/31/2025 Insurance [employer] [place] [id number] MEDICARE Advance Directives * Full Code (Latest Code Status on File) Date Activated Date Inactivated Comments 09/02/2024 9:48 PM 09/05/2024 12:25 PM Question Answer Comments Patient has decision-making capacity? Yes * Full Code Date Activated Date Inactivated Comments 08/31/2024 7:20 PM 09/02/2024 9:48 PM Question Answer Comments Patient has decision-making capacity? Yes Care Teams Electrical Engineering Draftsperson Relationship Specialty Start Date End Date Natalia Wayne APRN [address] [place] [phone] PCP - General 12/10/24
[2025-06-25 10:04] LABS: Hematocrit 33.7 % (37.0-47.0); Hemoglobin 11.5 g/dL (12.2-16.2); Immature Granulocytes % 0.2 %; Mean Corpuscular HGB Conc 34.1 g/dL (31.8-35.4); Mean Corpuscular Hemoglobin 35.8 pg (27.0-31.2); Mean Corpuscular Volume 105.0 fl (81-99); Nucleated Red Blood Cells % 0 %; Platelet Count 158 K/mm3 (142-424); Red Blood Count 3.21 M/mm3 (4.20-5.40); Red Cell Distribution Width-SD 66.4 fL; White Blood Count 4.9 K/mm3 (4.8-10.8)
[2025-06-25 10:20] LABS: Alanine Aminotransferase 22 U/L (12-78); Albumin Level 3.5 g/dl (3.5-5.0); Albumin/Globulin Ratio 1.3 (1.1-1.8); Alkaline Phosphatase 62 U/L (38-126); Anion Gap 8.7 mEq/L (5-15); Aspartate Amino Transferase 28 U/L (14-36); Bilirubin,Total 0.6 mg/dl (0.2-1.3); Blood Urea Nitrogen 16 mg/dl (7-17); Calcium 9.3 mg/dl (8.4-10.2); Carbon Dioxide 20 mmol/L (22.0-30.0); Chloride 108 mmol/L (98-107); Estimated Glomerular Filt Rate 37 ml/min (>60); GFR (African American) 44 ML/MIN (>60); Globulin 2.7 g/dL (1.3-3.2); Glucose 109 mg/dl (74-100); Potassium 3.7 mmoL/L (3.5-5.1); Sodium 133 mmol/L (136-145); Total Protein,Serum 6.2 g/dl (6.3-8.2)
[2025-06-25] MEDS: DEXAMETHASONE 4MG TABLET 12 MG (11:08)
[2025-06-25] MEDS: ONDANSETRON 4MG ODT 16 MG (11:08)
[2025-06-25] MEDS: POTASSIUM CHLORIDE 20MEQ TAB 40 MEQ PO (11:09)
[2025-06-25 11:18] LABS: Creatinine Clearance Estimated 35 mL/min (50-200); Creatinine,Serum 1.40 mg/dl (0.52-1.04)
[2025-06-25] MEDS: DEXTROSE 5% IV ×3 (11:38→12:00)
[2025-06-25] MEDS: OXALIPLATIN IV (11:38)
[2025-06-25] MEDS: WATER IV ×3 (11:38→12:00)
[2025-06-25] MEDS: LEUCOVORIN CALCIUM IV (11:39)
[2025-06-25 11:54] VITALS: BP 142/68; PULSE 76; RESP 18; TEMP 36.3; O2SAT 98
[2025-06-25 12:30] VITALS: BP 167/53; PULSE 69
[2025-06-25 13:00] VITALS: BP 165/57; PULSE 72
[2025-06-25 13:30] VITALS: BP 142/55; PULSE 68
[2025-06-25] MEDS: FLUOROURACIL IV (13:57)
[2025-06-25] MEDS: SODIUM CHLORIDE IV (13:57)
[2025-06-25] MEDS: FLUOROURACIL 500MG/10ML VIAL 550 MG IV (13:57)
[2025-06-25 14:00] VITALS: BP 162/57; PULSE 71
[2025-06-25 14:05] VITALS: BP 170/60; PULSE 70; O2SAT 99
== END 2025-06-25 23:59 | disposition home or self-care (01) ==
PROVIDERS: PCP Nurse Practitioner Family; Visit Provider Internal Medicine Medical Oncology
DX: C20 Malignant neoplasm of rectum (principal); Z51.11 Encounter for antineoplastic chemotherapy
CPT/HCPCS: 80053; 85025; 96368; 96411; 96413; 96415; 96416; 96417; J0640; J7060; J8540; J9190; J9263; Q0162

== ENCOUNTER 2025-06-27 12:06 | Outpatient (CLI) | payer MEDICARE, SELFPAY ==
--- OUTSIDE RECORDS SUMMARY | 2025-06-27 12:09 | XMS_ITS | Clinical Summary ---
Author Organization [facility] Address [address] [place] [address] Care Team Providers Care Director Global Intelligence Name Role Phone Natalia Wayne YVONNE Primary Care Provider [phone] Allergies No known active allergies Medications rosuvastatin [...] Office Visit [facility] [address] [place] [phone] Joi Stewart MD Rectal cancer (CMS/HCC) (Primary Dx) 04/22/2025 2:50 PM EDT Clinical Support [facility] Multidisciplinary Oncology Clinic [address] [place] [phone] Anika Joya, RN Rectal cancer (CMS/HCC) 04/22/2025 11:26 AM EDT - 04/22/2025 11:59 PM EDT Hospital Encounter [facility] [address] [place] [address] Rectal cancer (CMS/HCC) Discharge Disposition: Home or Self Care 04/22/2025 Travel 03/31/2025 Telephone [facility] [address] [place] [phone] Manoj Fowler MD 03/31/2025 Telephone [facility] [address] [place] [phone] Manoj Fowler MD Flexible Sigmoidoscopy from [...] Info) Description 07/30/2025 1:[address] [facility] H Endoscopy [address] [place] [phone] Manoj Fowler MD [address] [facility] [address] [place] [address] 08/12/2025 1:30 PM EST Clinical Support [facility] Multidisciplinary Oncology Clinic [address] [place] [address] 08/12/2025 1:40 PM EST Office Visit [facility] Multidisciplinary Oncology Clinic [address] [place] [address] Joi Stewart MD 800 [facility] [address] [place] [address] 09/04/2025 10:00 AM EST Appointment [facility] Vascular Lab [address] [facility] 5th Floor [address] [place] [address] 09/04/2025 11:00 AM EST Office Visit [place] [facility] [address] 5[address] [place] [address] Hilary Cordova MD [address] [facility] [address] [place] [address] Health Maintenance Due Date Last Done Comments [facility]-Bone Density Scan 1950 [facility]-Medicare Annual Wellness (AWV) 1949 [facility]-Infant/Child/Adol SDOH Screenings 1949 [facility]-DTaP,Tdap,and Td Vaccine s (1 - Tdap) 1968 [facility]-Pneumococcal Vaccine: 50 + Years (1 of 2 - PCV) 1968 [facility]-Zoster Vaccines (1 of 2) 1968 CT Colonography 1994 FIT-DNA 1994 FIT 1994 FOBT 1994 Sigmoidoscopy 1994 [id number] Vaccine (2 - Cady risk series) 01/07/2021 [...] LAB HEMATOLOGY METHOD 04/22/2025 4:01 PM EDT [facility] RBC Count 3.45(L) 3.90 - 5.20 10*6/uL LAB HEMATOLOGY METHOD 04/22/2025 4:01 PM EDT [facility] HGB 11.7 11.2 - 15.7 g/dL LAB HEMATOLOGY METHOD 04/22/2025 4:01 PM EDT [facility] HCT 34.1 34.0 - 45.0 % LAB HEMATOLOGY METHOD 04/22/2025 4:01 PM EDT [facility] Platelet Count 170 155 - 369 10*3/uL LAB HEMATOLOGY METHOD 04/22/2025 4:01 PM EDT [facility] MCV 99(H) 79 - 98 fL LAB HEMATOLOGY METHOD 04/22/2025 4:01 PM EDT [facility] MCH 33.9(H) 26.0 - 32.0 pg LAB HEMATOLOGY METHOD 04/22/2025 4:01 PM EDT [facility] MCHC 34.3 30.7 - 35.5 g/dL LAB HEMATOLOGY METHOD 04/22/2025 4:01 PM EDT [facility] RDW 15.7(H) 11.5 - 14.5 % LAB HEMATOLOGY METHOD 04/22/2025 4:01 PM EDT [facility] MPV 9.8 8.8 - 12.5 fL LAB HEMATOLOGY METHOD 04/22/2025 4:01 PM EDT [facility] nRBC 0.0 <=0.0 per 100 WBCs LAB HEMATOLOGY METHOD 04/22/2025 4:01 PM EDT [facility] Differential Type Automated LAB HEMATOLOGY METHOD 04/22/2025 4:01 PM EDT [facility] Neutrophils % 67 % LAB HEMATOLOGY METHOD 04/22/2025 4:01 PM EDT [facility] Lymphocytes % 18 % LAB HEMATOLOGY METHOD 04/22/2025 4:01 PM EDT [facility] Monocytes % 11 % LAB HEMATOLOGY METHOD 04/22/2025 4:01 PM EDT [facility] Eosinophils % 3 % LAB HEMATOLOGY METHOD 04/22/2025 4:01 PM EDT [facility] Basophils % 1 % LAB HEMATOLOGY METHOD 04/22/2025 4:01 PM EDT [facility] Immature Granulocytes % 0 % LAB HEMATOLOGY METHOD 04/22/2025 4:01 PM EDT [facility] Neutrophils Absolute 4.45 1.60 - 6.10 10*3/uL LAB HEMATOLOGY METHOD 04/22/2025 4:01 PM EDT [facility] Lymphocytes Absolute 1.14(L) 1.20 - 3.90 10*3/uL LAB HEMATOLOGY METHOD 04/22/2025 4:01 PM EDT [facility] Monocytes Absolute 0.68 0.30 - 0.90 10*3/uL LAB HEMATOLOGY METHOD 04/22/2025 4:01 PM EDT [facility] Eosinophils Absolute 0.16 0.00 - 0.50 10*3/uL LAB HEMATOLOGY METHOD 04/22/2025 4:01 PM EDT [facility] Basophils Absolute 0.03 0.00 - 0.10 10*3/uL LAB HEMATOLOGY METHOD 04/22/2025 4:01 PM EDT [facility] Immature Granulocytes Absolute 0.02 0.00 - 0.06 10*3/uL LAB HEMATOLOGY METHOD 04/22/2025 4:01 PM EDT [facility] Blood Blood sample taken from central line / Unknown (Port) Long-term Catheter / Unknown 04/22/2025 3:09 PM EDT 04/22/2025 3:47 PM EDT Narrative [facility] - 04/22/2025 4:01 PM EDT Therapeutic decision making should be based on absolute values, rather than percentages. us Joi Stewart MD LAB BLOOD ORDERABLES Final Res ult [facility] [address] [place] [address] * CEA, Serum (04/22/2025 3:09 PM EDT) CEA, Serum 1.9 <4.0 ng/mL 04/22/2025 5:10 PM EDT [facility] Blood Blood sample taken from central line / Unknown (Port) Long-term Catheter / Unknown 04/22/2025 3:09 PM EDT 04/22/2025 3:38 PM EDT Narrative [facility] - 04/22/2025 5:10 PM EDT Normal range for smokers: < 5.5 ng/ml Normal range for non-smokers: <=4.0 ng/ml Performed by Karin electrochemiluminescent immunoassay. Results obtained with different test methods or kits cannot be used interchangeably. us Joi Stewart MD LAB BLOOD ORDERABLES Final Res ult [facility] [address] [place] [address] * (ABNORMAL) Comprehensive Metabolic Panel, Plasma (04/22/2025 3:09 PM EDT) Glucose, Plasma 120(H) 74 - 99 mg/dL 04/22/2025 4:12 PM EDT [facility] BUN, Plasma 13 8 - 23 mg/dL 04/22/2025 4:12 PM EDT [facility] Creatinine, Plasma 1.33(H) 0.60 - 1.10 mg/dL 04/22/2025 4:12 PM EDT [facility] BUN/Creatinine Ratio 10 04/22/2025 4:12 PM EDT [facility] Sodium, Plasma 139 136 - 145 mmol/L 04/22/2025 4:12 PM EDT [facility] Potassium, Plasma 3.6 3.6 - 4.9 mmol/L 04/22/2025 4:12 PM EDT [facility] Chloride, Plasma 105 97 - 107 mmol/L 04/22/2025 4:12 PM EDT [facility] CO2, Plasma 23 22 - 29 mmol/L 04/22/2025 4:12 PM EDT [facility] Anion Gap 11 6 - 16 mmol/L 04/22/2025 4:12 PM EDT [facility] Total Calcium, Plasma 9.3 8.9 - 10.2 mg/dL 04/22/2025 4:12 PM EDT [facility] Total Protein 6.3 6.3 - 7.9 g/dL 04/22/2025 4:12 PM EDT [facility] Albumin, Plasma 3.6 3.5 - 5.2 g/dL 04/22/2025 4:12 PM EDT [facility] AST, Plasma 34 10 - 35 U/L 04/22/2025 4:12 PM EDT [facility] Comment:Hemolyzed, result ma y be falsely increased. ALT, Plasma 44(H) 10 - 35 U/L 04/22/2025 4:12 PM EDT [facility] Alkaline Phosphatase, Plasma 82 46 - 142 U/L 04/22/2025 4:12 PM EDT [facility] Total Bilirubin, Plasma 0.3 0.2 - 1.1 mg/dL 04/22/2025 4:12 PM EDT [facility] eGFRcr 41.8 mL/min/1.7 3m*2 04/22/2025 4:12 PM EDT [facility] Comment:Reported eGFRcr in m L/min/1.73m2 is based the CKD-EPI 2020 equation that does not use a race coefficient. Blood Blood sample taken from central line / Unknown (Port) Long-term Catheter / Unknown 04/22/2025 3:09 PM EDT 04/22/2025 3:39 PM EDT us Joi Stewart MD LAB BLOOD ORDERABLES Final Res ult [facility] [address] [place] [address] * CT Abdomen Pelvis w IV Contrast [...] Total DLP (Dose-Length Product): 640.83 mGy.cm (accession [id number]), 640.83 mGy.cm (accession [id number]). Please note: The reported value represents the [...] Total DLP (Dose-Length Product): 640.83 mGy.cm (accession [id number]),640.83 mGy.cm (accession [id number]). Please note: The reported valuerepresents the total [...] Total DLP (Dose-Length Product): 640.83 mGy.cm (accession [id number]), 640.83 mGy.cm (accession [id number]). Please note: The reported value represents the [...] Total DLP (Dose-Length Product): 640.83 mGy.cm (accession [id number]),640.83 mGy.cm (accession [id number]). Please note: The reported valuerepresents the total [...] Antibody Negative Negative 08/31/2024 6:21 PM EST [facility] Blood Venous blood specimen / Unknown Venipuncture / Unknown 08/31/2024 5:22 PM EST 08/31/2024 5:40 PM EST us Meño Cano MD LAB BLOOD ORDERABLES Final Re sult [facility] [address] [place] [address] * Colonoscopy (07/22/2024 9:29 AM EDT) Anatomical [...] medications. Staff Staff Role Robert Bueno Endo Drainage Design Coordinator Shruti Gutierrez, Carmine Torres CRNA Endo Drainage Design Coordinator Richard Borja MD Proceduralist Marcelina Arana Endo [...] of bowel preparation was evaluated using the [place] Bowel Preparation Scale with scores of: right [...] Problem 03/31/2025 Insurance [employer] [place] [id number] MEDICARE Advance Directives * Full Code (Latest Code Status on File) Date Activated Date Inactivated Comments 09/02/2024 9:48 PM 09/05/2024 12:25 PM Question Answer Comments Patient has decision-making capacity? Yes * Full Code Date Activated Date Inactivated Comments 08/31/2024 7:20 PM 09/02/2024 9:48 PM Question Answer Comments Patient has decision-making capacity? Yes Care Teams Director Global Intelligence Relationship Specialty Start Date End Date Natalia Wayne APRN [address] [place] [phone] PCP - General 12/10/24
--- OUTSIDE RECORDS SUMMARY | 2025-06-27 12:09 | XMS_ITS | Encounter Summary ---
Author Organization Healthcare Address [address] [place] [address] Care Team Providers Care Livestock Trader Name Role Phone Pcp, No Primary Care Provider Natalia Hector APRN Primary Care Provider [phone] Encounter Details Date Type Department Care Team (Late st Contact Info) Description 11/14/2024 Orders Only External Location [address] [place] [address] Provider, External Social History Tobacco Use Types [...] PM EDT Appointment [facility] Endoscopy [address] [place] [phone] Manoj Fowler MD [address] [facility] [address] [place] [address] 08/12/2025 1:30 PM EST Clinical Support [facility] Multidisciplinary Oncology Clinic [address] [place] [phone] 08/12/2025 1:40 PM EST Office Visit [facility] Multidisciplinary Oncology Clinic [address] [place] [address] Joi Stewart MD [address] [facility] Tete Baker [facility] [address] [place] [phone] 09/04/2025 10:00 AM EST Appointment [facility] Vascular Lab [address] [facility] 5th Floor [address] [place] [address] 09/04/2025 11:00 AM EST Office Visit [facility] Comprehensive Vascular Clinic [address] 5th [address] [place] [address] Hilary Cordova MD [address] [place] [address] documented as of this encounter [...] documented as of this encounter Care Teams Livestock Trader Relationship Specialty Start Date End Date Pcp, Mady [address] [place] [address] PCP - General Family Medicine 06/11/24 12/09/24 Natalia Wayne, YVONNE [address] [place] [address] PCP - General 12/10/24 documented as of this encounter
--- OUTSIDE RECORDS SUMMARY | 2025-06-27 12:09 | XMS_ITS | Clinical Summary ---
[facility] Address [address] [place] [address] Care Team Providers Care Incinerator Plant General Supervisor Name Role Phone Unavailable Primary Care Provider [...]
--- OUTSIDE RECORDS SUMMARY | 2025-06-27 12:09 | XMS_ITS ---
Author Organization [facility] Address [address] [place] [address] Care Team Providers Care Dye Feeder Name Role Phone Natalia Wayne APRN Primary Care Provider [phone] Active Problems Problem Noted Date Diagnosed Date [...] 5-FU (Adrucil) infusion - for home use ([facility] supplied) CADD 100ML Therapy Complete Joi Stewart MD 1 of 1 cycle started MitoMYcin + Fluorouracil Every 28 Days x 2 + XRT 12/17/19 25 12/13/2024 5-FU CHEMO INFUSION ([facility] SUPPLIED) CADD ORDERABLEmitoMYcin (Mutamycin) Other (See Comments) Joi Stewart MD Treatment not started Resolved Problems Problem Noted Date Diagnosed Date Resolved Date Large bowel obstruction 08/31/20240 01/2024 Second hand smoke exposure 06/11/2024 0 06/22/2025
[2025-06-27] MEDS: SODIUM CHLORIDE 0.9% 10ML FLUSH SYRINGE 10 ML IV (12:30)
== END 2025-06-27 23:59 | disposition home or self-care (01) ==
LOC: INF 12:07
PROVIDERS: PCP Nurse Practitioner Family; Visit Provider Internal Medicine Medical Oncology
DX: C20 Malignant neoplasm of rectum (principal)
CPT/HCPCS: 96523; J1642

== ENCOUNTER 2025-07-18 09:50 | Outpatient (CLI) | payer MEDICARE, SELFPAY ==
[2025-07-18] MEDS: SODIUM CHLORIDE 0.9% 10ML FLUSH SYRINGE 10 ML IV (10:00)
--- OUTSIDE RECORDS SUMMARY | 2025-07-18 10:06 | XMS_ITS ---
Author Organization [facility] Address [address] [place] [address] Care Team Providers Care Physical Medicine Physician Name Role Phone Natalia Wayne APRN Primary Care Provider [phone] Active Problems Problem Noted Date Diagnosed Date [...] 5-FU (Adrucil) infusion - for home use ([facility] supplied) CADD 100ML Therapy Complete Joi Stewart MD 1 of 1 cycle started MitoMYcin + Fluorouracil Every 28 Days x 2 + XRT 12/17/19 25 12/13/2024 5-FU CHEMO INFUSION ([facility] SUPPLIED) CADD ORDERABLEmitoMYcin (Mutamycin) Other (See Comments) Joi Stewart MD Treatment not started Resolved Problems Problem Noted Date Diagnosed Date Resolved Date Large bowel obstruction 08/31/20240 01/2024 Second hand smoke exposure 06/11/2024 0 06/22/2025
--- OUTSIDE RECORDS SUMMARY | 2025-07-18 10:06 | XMS_ITS | Continuity of Care Document ---
Author Organization [place] - [employer] [place] [facility] Address [address] [place] [address] Assessment Encounter Date Assessment Date Assessment LastModified by Organization Details LastModified Time 06/13/2025 06/13/2025 For now, continue care with oncology. Stop lisinopril (patient has already done so and BP is controlled). I also encouraged patient to discuss influenza immunization with oncology to get their recommendation. Follow up in 6 months for recheck, sooner if needed Not available 06/21/2025 11:14:21 Plan of Treatment Reminders Order Date Submit Date Provider Last Modified By Organization Details Last Modified Time Details Appointments None record ed. Lab None record ed. Referral None record ed. Procedures None record ed. Surgeries None record ed. Imaging None record ed. Medication Orders None record ed. Patient TargetsNo targets recorded. Patient InstructionsNo instructions recorded. Reason for Referral None Reported. Results Created Date Observation Date Name Description Value Unit Range Abnormal Flag Note LastModifiedBy Organization Detail LastModifiedTime 06/01/2006/01/2025 XR, chest No observ ation record ed. [email or web address], [place], [address], 06/09/2025 08:54:40 06/01/2006/01/2025 imagi ng/neptali perez tic resul t No observ ation record ed. [email or web address], [place], [address], 06/09/2025 08:54:06 06/04/2006/04/2025 US, upper back No observ ation record ed. [email or web address], [place], [address], 06/09/2025 08:50:20 Result Notes None recorded. Problems Name Problem SNOMED Code Status Onset Date Resolution Date Notes Provider Name and Address Organization Details Recorded Time Essential hypertension 25421752 Active 2023 Natalia Wayne NP [address] [place] [address], [phone], [employer] 16:54:24 Carcinoma of colon, stage IV 595015502 Active 2023 Natalia Wayne NP [address] [place] [address], [phone], [employer] 16:54:23 Hyperlipidemia 35489880 Active 2023 Natalia Wayne NP [address] [place] [address], [phone], [employer] 16:54:26 Problem Notes None recorded. Medical Equipment None Reported. Allergies No known drug allergies Medications Name Sig Start Date Stop Date Status Note LastModified by Organization Details LastModified Time prochlorper azine maleate 10 mg tablet TAKE ONE TABLET BY MOUTH EVERY 6 HOURS NEEDED FOR NAUSEA AND VOMITING active Not Available Not Available No t Available ondansetron 8 mg disintegrat ing tablet DISSOLVE ONE TABLET BY MOUTH EVERY DAY ON DAYS 2 AND 3 AFTER treatment AND EVERY 8 HOURS NEEDED active Not Available Not Available No t Available Tylenol 500 mg tablet Take 2 tablets every 6 hours by oral route as needed. active Not Available Not Available No t Available lisinopril 10 mg tablet Take 1 tablet every day by oral route. 06/13 completed Not Available Not Available Not Available methylpredn isolone 4 mg tablets in a dose pack TAKE ACCORDING TO PACKAGE INSTRUCTI ONS --TAKE WITH FOOD-- -- FINISH ALL MEDICINE -- 06/13 completed Not Available Not Available Not Available ondansetron 4 mg disintegrat ing tablet Place 1 tablet every day by transling ual route as needed. 06/13 completed Not Available Not Available Not Available cefdinir 300 mg capsule TAKE ONE CAPSULE BY MOUTH TWICE DAILY -- FINISH ALL MEDICINE -- 09/11 completed Not Available Not Available Not Available Fiber-Tabs 625 mg tablet TAKE TWO TABLETS BY MOUTH TWICE DAILY 06/13 completed Not Available Not Available Not Available rosuvastati n 20 mg tablet TAKE [...] saturation in Arterial blood by Pulse oximetry Body temperature Systolic And Diastolic Provider Name and Address Organization Details Last Updated DateTime 170.18 cm 21.6 kg/m2 46181.4 5 g 71 /min 97 % 97 % 97.8 [degF] 134/68 mm[Hg] Oksana Reddy [employer] 13:30:40 Social History Question Answer Notes LastModified by Organizat ion Details LastModified Time Tobacco Smoking Status Current Every Day Smoker [facility] 09/11/2024 14:56:35 Do You Have An Advance Directive? No [email or web address] Information n ot available 09/11/2024 Is Your Home Air Conditioned? Yes [email or web address] Information not available 09/11/2024 Do You Wear A Helmet When Biking? No [email or web address] Information not available 09/11/2024 Are You Blind Or Do You Have Difficulty Seeing? No [email or web address] Information n ot available 09/11/2024 What Is Your Level Of Caffeine Consumption? Moderate Information not available 09/11/2024 What Type Of Nutrition Educator Do You Use? None Information not available [...] Do You Have Serious Difficulty Hearing? No [email or web address] Information not available 09/11/2024 What Type Of Diet Are You Following? REGULAR Information n ot available 09/11/2024 How Many Days Of Moderate To Strenuous Exercise, Like A Brisk Walk, Did You Do In The Last 7 Days? 3 [email or web address] Information not available 09/11/2024 Are There Any Guns Present In Your Home? Yes Information not available 09/11/2024 Which Of Your Hands Is Dominant? Right [email or web address] Information n ot available 09/11/2024 Do You Have A Medical Power Of Electroencephalographic Technician? No [email or web address] Information not available 09/11/2024 What Was The Date Of Your Most Recent Tobacco Screening? 06/13/2025 [email or web address] Information not available 06/13/2025 Do You Have Any Pets? Yes [email or web address] Information not available 09/11/2024 What Is Your Relationship Status? [email or web address] Information not available 09/11/2024 Have You Repeated Any Grades? No [email or web address] Information not available 09/11/2024 Do You Use Your Seat Belt Or Car Seat Routinely? Yes [email or web address] Information not available 09/11/2024 Are You Sexually Active? No [email or web address] Information not available 09/11/2024 Do You Have Any Siblings? Shae Mcfadden [email or web address] Information not available 09/11/2024 Do You Have Smoke And Carbon Monoxide Detectors In Your Home? No [email or web address] Information not available 09/11/2024 At What Age Did You Start Smoking Tobacco? 17 Information not available 09/11/2024 Are You Passively Exposed To Smoke? Yes [email or web address] Information no t available 09/11/2024 Are There Any Smokers In Your House? Yes [email or web address] Information not available 09/11/2024 How Much Tobacco Do You Smoke? 0.5 PPD Information not available 09/11/2024 Do You Participate In Social Media? Yes Information not available 09/11/2024 Do You Use Sunscreen Routinely? No Information not available 09/11/2024 Has Tobacco Cessation Counseling Been Provided? No [email or web address] Information not available 09/11/2024 How Many Years Have You Smoked Tobacco? 60 [email or web address] Information not available 09/11/2024 Have You Recently Traveled Abroad? No [email or web address] Information not available 09/11/2024 Do You Have Difficulty Walking Or Climbing Stairs? No [email or web address] Information not available 09/11/2024 Are You Currently In School? No [email or web address] Information not available 09/11/2024 Do You Have Any Dietary Restrictions? No [email or web address] Information not available 09/11/2024 Sex: Female Functional Status Question Answer Note LastModified by [employer] ion Details LastModified Time Do you use any illicit or recreational drugs? No [email or web address] Information not available 09/11/2024 Do you or have you ever used any other forms of tobacco or nicotine? No [email or web address] Information not available 09/11/2024 What is your level of alcohol consumption? None [email or web address] Information not available 09/11/2024 Are you currently employed? No [email or web address] Information not available 09/11/2024 Do you have transportation difficulties? No Information not available 09/11/2024 Are you able to walk independently without assistance or assistive devices? YESWOREST [email or web address] Information not available 09/11/2024 Do you have difficulty doing errands alone? No [email or web address] Information not available 09/11/2024 Are you able to care for yourself independently? Yes Information not available 09/11/2024 Do you have difficulty dressing, bathing, grooming, or toileting? Yes Information not available 09/11/2024 What is your exercise level? Moderate [email or web address] Information not available 09/11/2024 Mental Status Question Answer Note LastModified by [employer] Details LastModified Time Do you feel stressed (tense, restless, nervous, or anxious, or unable to sleep at night)? [id number] [email or web address] Information not available 09/11/2024 Do you have difficulty concentrating, remembering or making decisions? No [email or web address] Information no t available 09/11/2024 Are you or have you been involved with bullying? No [email or web address] Information not available 09/11/2024 Family History Nothing [...] 0.5 mL 12/10/2020 completed Natalia Wayne NP [address] [place], [address], [facility] [place] [employer] 09/11/2024 15:10:35 Past Encounters Encounter ID Performer Location Encounter Start Date Encounter Closed Date Diagnosis/Indication Diagnosis SNOMED-CT Code Diagnosis ICD10 Code Diagnosis IMO Codes Diagnosis Note [id number] Natalia Wayne NP [address] [address] 06/13/2025 13:16:07 06/13/2025 14:16:22 Post-discharge follow-up [id number] Z09 933537 Carcinoma of colon, stage IV 372424952 C18.9 Essential hypertension 75402834 I10 Health Concerns Section Related Observation LastModified by Organization Detai ls LastModified Time None Recorded Concern Status LastModified by Organization Details LastModified Time None Recorded Payers Encounter Date Sequence Insurance Name Policy Number Policy Christian Covered Member ID Christian Member ID Guarantor Name 06/13/2025 1 [place] Lashae Wyman [id number] Lashae Wyman Notes Date Note Type Note Provider Name and Address Organization Details Recorded Time 06/13/2025 text/html Patient presents for hospital follow up.She was hospitalized for dehydration. States she just sometimes does not do well after he chemo.She goes back in 2 weeks for her final chemo of this round. She is going to have a flex sig after that and then they will plan from there. She is feeling much better than when she was in the hospital. Her was recently diagnosed with cancer as well so she has been trying to navigate that. She did stop her lisinopril and her BP has remained controlled. Natalia Wayne NP [address] [place], [address], [facility] [place] [employer] 06/21/2025 11:14:24 OBGyn Episode No OBEpisode recorded.
--- OUTSIDE RECORDS SUMMARY | 2025-07-18 10:06 | XMS_ITS | Clinical Summary ---
Author Organization [facility] Address [address] [place] [address] Care Team Providers Care Record Searcher Name Role Phone Natalia Wayne YVONNE Primary Care Provider Allergies No known active allergies Medications rosuvastatin [...] Diagnosed Date Resolved Date Large bowel obstruction 08/31/202401/2024 Second hand smoke exposure 06/11/2024 0 06/22/2025 Encounters Date Type Department Care Team Description 04/22/2025 3:00 PM EDT Office Visit [facility] Multidisciplinary Oncology Clinic [address] [place] [phone] Joi Stewart MD Rectal cancer (CMS/HCC) (Primary Dx) 04/22/2025 2:50 PM EDT Clinical Support [facility] Mult[facility]isciplinary Oncology Clinic [address] [place] [phone] Anika Joya RN Rectal cancer (CMS/HCC) 04/22/2025 11:26 AM EDT - 04/22/2025 11:59 PM EDT Hospital Encounter [facility] [address] [place] [address] Rectal cancer (CMS/HCC) Discharge Disposition: Home or Self Care 04/22/2025 Travel from Last 3 Months Family History Medical History Relation Name Comments Diabetes Other Heart Problem Other Hypercholesterolemia Other Hypertension Other Relation Name Status Comments Other Social History Tobacco Use Types Packs/Day Years Used Date Smoking Tobacco: Every Day Cigarettes 0.5 50.8 Started: 1974 Passive Smoke Exposure: Past Smokeless [...] any time in the past 12 m [facility], were you homeless or living [...] Upcoming Encounters Date Type Department Care Team ([facility] st Contact Info) Description 07/30/2025 1:00 PM EDT Appointment [facility] [address] [place] [address] Manoj Fowler MD [address] [address] 08/12/2025 1:30 PM EST Clinical Support [facility] Multidisciplinary Oncology Clinic [address] [place] [phone] 08/12/2025 1:40 PM EST Office Visit [facility] Multidisciplinary Oncology Clinic [address] [place] [address] Joi Stewart MD [address] [facility] [address] [place] [address] 09/11/2025 11:00 AM EST Appointment [facility] [address] [place] [address] 09/11/2025 11:40 AM EST Office Visit [facility] [address] [place] [address] Hilary Cordova MD [id number] [place] [address] Health Maintenance Due Date Last Done Comments [facility]-Bone Density Scan 1950 [facility]-Medicare Annual Wellness (AWV) 1950 [facility]-/Child/Adol SDOH Screenings 1950 [facility]-DTaP,Tdap,and Td Vaccine s (1 - Tdap) 1968 [facility]-Pneumococcal Vaccine: 50 + Years (1 of 2 - PCV) 1968 [facility]-Zoster Vaccines (1 of 2) 1968 CT Colonography 1994 FIT-DNA 1994 FIT 1994 FOBT 1994 Sigmoidoscopy 1994 BEC-[id number] Vaccine (2 - Cady risk series) 01/07/2021 [...] LAB HEMATOLOGY METHOD 04/22/2025 4:01 PM EDT [facility] RBC Count 3.45(L) 3.90 - 5.20 10*6/uL LAB HEMATOLOGY METHOD 04/22/2025 4:01 PM EDT [facility] HGB 11.7 11.2 - 15.7 g/dL LAB HEMATOLOGY METHOD 04/22/2025 4:01 PM EDT [facility] HCT 34.1 34.0 - 45.0 % LAB HEMATOLOGY METHOD 04/22/2025 4:01 PM EDT [facility] Platelet Count 170 155 - 369 10*3/uL LAB HEMATOLOGY METHOD 04/22/2025 4:01 PM EDT [facility] MCV 99(H) 79 - 98 fL LAB HEMATOLOGY METHOD 04/22/2025 4:01 PM EDT [facility] MCH 33.9(H) 26.0 - 32.0 pg LAB HEMATOLOGY METHOD 04/22/2025 4:01 PM EDT [facility] MCHC 34.3 30.7 - 35.5 g/dL LAB HEMATOLOGY METHOD 04/22/2025 4:01 PM EDT [facility] RDW 15.7(H) 11.5 - 14.5 % LAB HEMATOLOGY METHOD 04/22/2025 4:01 PM EDT [facility] MPV 9.8 8.8 - 12.5 fL LAB HEMATOLOGY METHOD 04/22/2025 4:01 PM EDT [facility] nRBC 0.0 <=0.0 per 100 WBCs LAB HEMATOLOGY METHOD 04/22/2025 4:01 PM EDT [facility] Differential Type Automated LAB HEMATOLOGY METHOD 04/22/2025 4:01 PM EDT [facility] Neutrophils % 67 % LAB HEMATOLOGY METHOD 04/22/2025 4:01 PM EDT [facility] Lymphocytes % 18 % LAB HEMATOLOGY METHOD 04/22/2025 4:01 PM EDT [facility] Monocytes % 11 % LAB HEMATOLOGY METHOD 04/22/2025 4:01 PM EDT [facility] Eosinophils % 3 % LAB HEMATOLOGY METHOD 04/22/2025 4:01 PM EDT [facility] Basophils % 1 % LAB HEMATOLOGY METHOD 04/22/2025 4:01 PM EDT [facility] Immature Granulocytes % 0 % LAB HEMATOLOGY METHOD 04/22/2025 4:01 PM EDT [facility] Neutrophils Absolute 4.45 1.60 - 6.10 10*3/uL LAB HEMATOLOGY METHOD 04/22/2025 4:01 PM EDT [facility] Lymphocytes Absolute 1.14(L) 1.20 - 3.90 10*3/uL LAB HEMATOLOGY METHOD 04/22/2025 4:01 PM EDT [facility] Monocytes Absolute 0.68 0.30 - 0.90 10*3/uL LAB HEMATOLOGY METHOD 04/22/2025 4:01 PM EDT [facility] Eosinophils Absolute 0.16 0.00 - 0.50 10*3/uL LAB HEMATOLOGY METHOD 04/22/2025 4:01 PM EDT [facility] Basophils Absolute 0.03 0.00 - 0.10 10*3/uL LAB HEMATOLOGY METHOD 04/22/2025 4:01 PM EDT [facility] Immature Granulocytes Absolute 0.02 0.00 - 0.06 10*3/uL LAB HEMATOLOGY METHOD 04/22/2025 4:01 PM EDT [facility] Blood Blood sample taken from central line / Unknown (Port) Long-term Catheter / Unknown 04/22/2025 3:09 PM EDT 04/22/2025 3:47 PM EDT Narrative [facility] - 04/22/2025 4:01 PM EDT Therapeutic decision making should be based on absolute values, rather than percentages. us Joi Stewart MD LAB BLOOD ORDERABLES Final Res ult Performing Organization Address [facility] Co de Phone Number [facility] [address] [place] [address] * CEA, Serum (04/22/2025 3:09 PM EDT) CEA, Serum 1.9 <4.0 ng/mL 04/22/2025 5:10 PM EDT [facility] Blood Blood sample taken from central line / Unknown (Port) Long-term Catheter / Unknown 04/22/2025 3:09 PM EDT 04/22/2025 3:38 PM EDT Narrative [facility] - 04/22/2025 5:10 PM EDT Normal range for smokers: < 5.5 ng/ml Normal range for non-smokers: <=4.0 ng/ml Performed by Kar[employer] electrochemiluminescent immunoassay. Results obtained with different test methods or kits cannot be used interchangeably. us Joi Stewart MD LAB BLOOD ORDERABLES Final Res ult Performing Organization Address [facility]/ZIP Co de Phone Number [facility] [address] [place] [address] * (ABNORMAL) Comprehensive Metabolic Panel, Plasma (04/22/2025 3:09 PM EDT) Glucose, Plasma 120(H) 74 - 99 mg/dL 04/22/2025 4:12 PM EDT [facility] BUN, Plasma 13 8 - 23 mg/dL 04/22/2025 4:12 PM EDT [facility] Creatinine, Plasma 1.33(H) 0.60 - 1.10 mg/dL 04/22/2025 4:12 PM EDT [facility] BUN/Creatinine Ratio 10 04/22/2025 4:12 PM EDT [facility] Sodium, Plasma 139 136 - 145 mmol/L 04/22/2025 4:12 PM EDT [facility] Potassium, Plasma 3.6 3.6 - 4.9 mmol/L 04/22/2025 4:12 PM EDT [facility] Chloride, Plasma 105 97 - 107 mmol/L 04/22/2025 4:12 PM EDT [facility] CO2, Plasma 23 22 - 29 mmol/L 04/22/2025 4:12 PM EDT [facility] Anion Gap 11 6 - 16 mmol/L 04/22/2025 4:12 PM EDT [facility] Total Calcium, Plasma 9.3 8.9 - 10.2 mg/dL 04/22/2025 4:12 PM EDT [facility] Total Protein 6.3 6.3 - 7.9 g/dL 04/22/2025 4:12 PM EDT [facility] Albumin, Plasma 3.6 3.5 - 5.2 g/dL 04/22/2025 4:12 PM EDT [facility] AST, Plasma 34 10 - 35 U/L 04/22/2025 4:12 PM EDT [facility] Comment:Hemolyzed, result ma y be falsely increased. ALT, Plasma 44(H) 10 - 35 U/L 04/22/2025 4:12 PM EDT [facility] Alkaline Phosphatase, Plasma 82 46 - 142 U/L 04/22/2025 4:12 PM EDT [facility] Total Bilirubin, Plasma 0.3 0.2 - 1.1 mg/dL 04/22/2025 4:12 PM EDT [facility] eGFRcr 41.8 mL/min/1.7 3m*2 04/22/2025 4:12 PM EDT [facility] Comment:Reported eGFRcr in m L/min/1.73m2 is based the CKD-EPI 2020 equation that does not use a race coefficient. Blood Blood sample taken from central line / Unknown (Port) Long-term Catheter / Unknown 04/22/2025 3:09 PM EDT 04/22/2025 3:39 PM EDT us Joi Stewart MD LAB BLOOD ORDERABLES Final Res ult [facility] [address] [place] [address] * CT Abdomen Pelvis w IV Contrast [...] Total DLP (Dose-Length Product): 640.83 mGy.cm (accession [id number]), 640.83 mGy.cm (accession [id number]). Please note: The reported value represents the [...] Total DLP (Dose-Length Product): 640.83 mGy.cm (accession [id number]),640.83 mGy.cm (accession [id number]). Please note: The reported valuerepresents the total [...] Total DLP (Dose-Length Product): 640.83 mGy.cm (accession [id number]), 640.83 mGy.cm (accession [id number]). Please note: The reported value represents the [...] Total DLP (Dose-Length Product): 640.83 mGy.cm (accession [id number]),640.83 mGy.cm (accession [id number]). Please note: The reported valuerepresents the total [...] Antibody Negative Negative 08/31/2024 6:21 PM EST [facility] Blood Venous blood specimen / Unknown Venipuncture / Unknown 08/31/2024 5:22 PM EST 08/31/2024 5:40 PM EST Meño Cano MD LAB BLOOD ORDERABLES Final Re sult [facility] [address] [place] [address] * Colonoscopy (07/22/2024 9:29 AM EDT) Anatomical [...] medications. Staff Staff Role Robert Bueno Endo Associate Financial Planner Shruti Gutierrez CRNA CRNA Gantt, Randolph Endo Associate Financial Planner Richard Borja MD Proceduralist Marcelina Arana Endo Nurse Avi Murrell MD Anesthesiologist dillan donaldson rn Other - Providing Care tiny thom Other - Other (see comments) Preprocedure A [...] of bowel preparation was evaluated using the [place] Bowel Preparation Scale with scores of: right [...] 03/31/2025 Insurance [employer] [place] [id number] MEDICARE Advance Directives * Full Code (Latest Code Status on File) Date Activated Date Inactivated Comments 09/02/2024 9:48 PM 09/05/2024 12:25 PM Question Answer Comments Patient has decision-making capacity? Yes * Full Code Date Activated Date Inactivated Comments 08/31/2024 7:20 PM 09/02/2024 9:48 PM Question Answer Comments Patient has decision-making capacity? Yes Care Teams Record Searcher Relationship Specialty Start Date End Date Natalia Wayne APRN [address] [place] [address] PCP - General 12/10/24
--- OUTSIDE RECORDS SUMMARY | 2025-07-18 10:06 | XMS_ITS | Data Portability ---
Author Organization [employer] [facility] Address [address] [place] [address] Assessment Encounter Date Assessment Date Assessment LastModified [...] sooner if needed. Not available 10/04/2024 17:47:30 06/13/2025 06/13/2025 For now, continue care with [...] Orders [facility] 10 mg tablet 2024 [facility]25 [facility], [address] [place] [address], [address], 14:15:35 lisinopril 10 mg tablet [address] [facility], [address] [place], [address], 13:47:13 Patient TargetsNo targets recorded. Patient Instructions Encounter Date Encounter Id Patient Instructions Last Modified By Organization Details Last Modified Time 09/11/2024 [id number] high blood pressure: care instructions [facility] Not available 09/11/2024 15:20:14 learning about high blood pressure [facility] Not available 09/11/2024 15:20:14 high cholesterol : care instructions [facility] Not available 09/13/2024 16:54:02 Reason for Referral None Reported. Results Created Date Observation Date Name Description Value Unit Range Abnormal Flag Note LastModifiedBy Organization Detail LastModifiedTime 10/21/1910/21/2024 HCV antib darwin dotyul use set HCV Ab normal Not Available [facility] (Lab) [facility], [place], [address], 10/21/2024 15:09:59 10/21/19 25 10/21/2024 CT, chest , w/o contr ast No observ ation record ed. [address] [facility] [address] [place], [address], 10/21/2024 15:21:14 10/21/19 25 10/21/2024 CT, abdom en + pelvi s, w/o contr ast No observ ation record ed. [place] [id number] [facility] [address] [place], [address], 10/21/2024 15:23:15 10/22/19 25 10/21/2024 elect rocar diogr am, routi ne ECG, 12 leads min; inter preta tion and repor t (PROC ) No observ ation record ed. [place] [address], [place], [address], 10/23/2024 10:18:59 11/14/19 25 11/14/2024 MR, angio gram, abdom en, w/wo contr ast No observ ation record ed. [facility] [address], [place], [address], 11/21/2024 10:32:46 06/01/20 25 06/01/2025 XR, chest No observ ation record ed. [facility] [address], [place], [address], 06/09/2025 08:54:40 06/01/20 25 06/01/2025 imagi ng/di agnos tic resul t No observ ation record ed. [facility] [address], [place], [address], 06/09/2025 08:54:06 06/04/20 25 06/04/2025 US, upper back No observ ation record ed. [facility] [address], [place], [address], 06/09/2025 08:50:20 Result Notes None recorded. Problems Name Problem SNOMED Code Status Onset Date Resolution Date Notes Provider Name and Address Organization Details Recorded Time Essential hypertension 17142914 Active 2023 Natalia Wayne NP [address] [place], [address], [employer] 16:54:24 Carcinoma of colon, stage IV 313701711 Active 2023 Natalia Wayne NP [address] [place], [address], [employer] 16:54:23 Hyperlipidemia 79435544 Active 2023 Natalia Wayne NP [address] [place], [address], [employer] 4 16:54:26 Problem Notes None recorded. Medical Equipment [...] Updated DateTime 5 170.18 cm 24.5 kg/m2 24034.1 1 g 75 /min 97 % 97 % 144/86 mm[Hg] 163/76 mm[Hg] 139/84 mm[Hg] Oksana Reddy [facility] [employer], [facility]. 5 10:44:34 Date Recorded Body height Body mass index (BMI) Body weight Heart rate Oxygen saturation Oxygen saturation in Arterial blood by Pulse oximetry Body temperature Systolic And Diastolic Provider Name and Address Organization Details Last Updated DateTime 5 170.18 cm 21.6 kg/m2 61669.4 5 g 71 /min 97 % 97 % 97.8 [degF] 134/68 mm[Hg] Oksana Reddy [employer] 5 13:30:40 Date Recorded Body height Body mass index (BMI) Body weight Heart rate Oxygen saturation Oxygen saturation in Arterial blood by Pulse oximetry Systolic And Diastolic Systolic And Diastolic Systolic And Diastolic Provider Name and Address Organization Details Last Updated DateTime 4 170.18 cm 24.3 kg/m2 39087.9 2 g 72 /min 97 % 97 % 177/84 mm[Hg] 182/82 mm[Hg] 174/86 mm[Hg] Oksana Reddy [employer]. 14:56:23 Social History Question Answer Notes LastModified by Organizat ion Details LastModified Time Tobacco Smoking Status Current Every Day Smoker Oksana Reddy [facility] [employer]. 09/11/2024 14:56:35 Do You Have An Advance Directive? No [email or web address] Information n ot available 09/11/2024 Is Your Home Air Conditioned? Yes [email or web address] Information not available 09/11/2024 Do You Wear A Helmet When Biking? No [email or web address] Information not available 09/11/2024 Are You Blind Or Do You Have Difficulty Seeing? No Information n ot available 09/11/2024 What Is Your Level Of Caffeine Consumption? Moderate [email or web address] Information not available 09/11/2024 What Type Of Human Resources Temp Do You Use? None [email or web address] Information not available 09/11/2024 In The 14 [...] To Be High Risk For COVID-19? No [email or web address] Information not available 09/11/2024 Are You Deaf Or Do You Have Serious Difficulty Hearing? No [email or web address] Information not available 09/11/2024 What Type Of Diet Are You Following? REGULAR [email or web address] Information n ot available 09/11/2024 How Many Days Of Moderate To Strenuous Exercise, Like A Brisk Walk, Did You Do In The Last 7 Days? 3 [email or web address] Information not available 09/11/2024 Are There Any Guns Present In Your Home? Yes [email or web address] Information not available 09/11/2024 Which Of Your Hands Is Dominant? Right [email or web address] Information n ot available 09/11/2024 Do You Have A Medical Power Of Rn Physician Office? No [email or web address] Information not available 09/11/2024 What Was The Date Of Your Most Recent Tobacco Screening? 06/13/2025 [email or web address] Information not available 06/13/2025 Do You Have Any Pets? Yes [email or web address] Information not available 09/11/2024 What Is Your Relationship Status? [email or web address] Information not available 09/11/2024 Have You Repeated Any Grades? No [email or web address] Information not available 09/11/2024 Do You Use Your Seat Belt Or Car Seat Routinely? Yes [email or web address] Information not available 09/11/2024 Are You Sexually Active? No Information not available 09/11/2024 Do You Have Any Siblings? Shae Mcfadden [email or web address] Information not available 09/11/2024 Do You Have Smoke And Carbon Monoxide Detectors In Your Home? No Information not available 09/11/2024 At What Age Did You Start Smoking Tobacco? 17 [email or web address] Information not available 09/11/2024 Are You Passively Exposed To Smoke? Yes Information no t available 09/11/2024 Are There Any Smokers In Your House? Yes Information not available 09/11/2024 How Much Tobacco Do You Smoke? 0.5 PPD [email or web address] Information not available 09/11/2024 Do You Participate In Social Media? Yes Information not available 09/11/2024 Do You Use Sunscreen Routinely? No [email or web address] Information not available 09/11/2024 Has Tobacco Cessation Counseling Been Provided? No [email or web address] Information not available 09/11/2024 How Many Years Have You Smoked Tobacco? 60 [email or web address] Information not available 09/11/2024 Have You Recently Traveled Abroad? No [email or web address] Information not available 09/11/2024 Do You Have Difficulty Walking Or Climbing Stairs? No [email or web address] Information not available 09/11/2024 Are You Currently In School? No [email or web address] Information not available 09/11/2024 Do You Have Any Dietary Restrictions? No [email or web address] Information not available 09/11/2024 Sex: Female Functional Status Question Answer Note LastModified by Organizat ion Details LastModified Time Do you use any illicit or recreational drugs? No [email or web address] Information not available 09/11/2024 Do you or have you ever used any other forms of tobacco or nicotine? No [email or web address] Information not available 09/11/2024 What is your level of alcohol consumption? None [email or web address] Information not available 09/11/2024 Are you currently employed? No Information not available 09/11/2024 Do you have transportation difficulties? No [email or web address] Information not available 09/11/2024 Are you able to walk independently without assistance or assistive devices? YESWOREST [email or web address] Information not available 09/11/2024 Do you have difficulty doing errands alone? No [email or web address] Information not available 09/11/2024 Are you able to care for yourself independently? Yes [email or web address] Information not available 09/11/2024 Do you have difficulty dressing, bathing, grooming, or toileting? Yes [email or web address] Information not available 09/11/2024 What is your exercise level? Moderate Information not available 09/11/2024 Mental Status Question Answer Note LastModified by Organizat ion Details LastModified Time Do you feel stressed (tense, restless, nervous, or anxious, or unable to sleep at night)? [id number] [email or web address] Information not available 09/11/2024 Do you have difficulty concentrating, remembering or making decisions? No [email or web address] Information no t available 09/11/2024 Are you or have you been involved with bullying? No [email or web address] Information not available 09/11/2024 Family History Nothing Reported. Medical History Condition Response Hospitalizations N Emergency room visit since last appointm ent. N Gynecological History Statement/Question Response Menses Monthly N HPV Vaccine N Date of Last Pap Smear Most Recent Mammogram Age at First Child 20 Obstetrics History GPAL:G 0 P 0 0 0 0 Immunizations Vaccine Type Date Status Note Provider Luis king and Address Organization Details Recorded Time COVID-19 vaccine, vector-nr, rS-Ad26, PF, 0.5 mL 12/10/2020 completed Natalia Wayne NP [address] [place] [address], [address], [facility] [employer] 09/11/2024 15:10:35 Past Encounters Encounter ID Performer Location Encounter Start Date Encounter Closed Date Diagnosis/Indication Diagnosis SNOMED-CT Code Diagnosis ICD10 Code Diagnosis IMO Codes Diagnosis Note [id number] Natalia Wayne NP [place] [address] 09/11/2024 13:46:57 09/11/2024 16:07:37 Essential hypertension 45098639 I10 Carcinoma of colon, stage IV 868446287 C18.9 Hyperlipidemia 72649084 E78.5 Normal weight 42013046 Z 68.24 [id number] Natalia Wayne NP [place] [address] 10/03/2024 10:23:08 10/03/2024 11:18:09 Essential hypertension 86636029 I10 Carcinoma of colon, stage IV 473081310 C18.9 [id number] Natalia Wayne NP [place] [address] 06/13/2025 13:16:07 06/13/2025 14:16:22 Post-discharge follow-up 850696516 Z09 902371 Carcinoma of colon, stage IV 168195357 C18.9 Essential hypertension 13597191 I10 Health Concerns Section Related Observation LastModified by Organization Detai ls LastModified Time None Recorded Concern Status LastModified by Organization Details LastModified Time None Recorded Advance Directives Directive N: Payers Insurance Date Sequence Insurance Name Policy Number Policy Christian Covered Member ID Christian Member ID Guarantor Name 06/11/2025 [place] [employer] [facility] Lashae Wyman [id number] Lashae Wyman 06/11/2025 1 [place] Lashae Wyman [id number] Lashae Wyman Notes Date Note Type [...] She is going to start chemo in [place] next month. She is going to have radiation in [place] after the chemo. She does have a [...] x 1 month. Natalia Wayne NP [address] [place], [address], [employer]. 09/13/2024 16:55:34 10/03/2024 text/html Patient presents for [...] pressure is normal. Natalia Wayne NP [address] [place], [address], [employer] 10/04/2024 17:47:56 06/13/2025 text/html Patient presents for hospital follow [...] BP has remained controlled. Natalia Wayne NP [address] [place] [address], [address], [employer] 06/21/2025 11:14:24 OBGyn Episode No OBEpisode recorded.
--- OUTSIDE RECORDS SUMMARY | 2025-07-18 10:06 | XMS_ITS | Clinical Summary ---
[facility] Address [address] [place] [address] Care Team Providers Care Order Worker Name Role Phone Unavailable Primary Care Provider [...]
--- OUTSIDE RECORDS SUMMARY | 2025-07-18 10:06 | XMS_ITS | Encounter Summary ---
Author Organization Healthcare Address [address] [place] [address] Care Team Providers Care Senior Writer Name Role Phone Pcp, No Primary Care Provider Natalia Hector APRN Primary Care Provider [phone] Encounter Details Date Type Department Care Team (Late st Contact Info) Description 11/14/2024 Orders Only External Location [address] [place] [address] Provider, External Social History Tobacco Use Types Packs/Day Years Used Date Smoking Tobacco: Every Day Cigarettes 0.5 50.8 Started: 1975 Smokeless Tobacco: Never Alcohol Use [...] PM EDT Appointment [facility] [address] [place] [address] Manoj Fowler [facility] [address] [facility] [address] [place] [address] 08/12/2025 1:30 PM EST Clinical Support [facility] Multidisciplinary Oncology Clinic [address] [place] [address] 08/12/2025 1:40 PM EST Office Visit [facility] Multidisciplinary Oncology Clinic [address] [place] [address] Joi Stewart MD [address] [facility] Tete Baker [facility] [address] [place] [address] 09/11/2025 11:00 AM EST Appointment [facility] Vascular Lab [address] [facility] 5th Floor [address] [place] [address] 09/11/2025 11:40 AM EST Office Visit [facility]ascular [facility] [address] Floor [address] [place] [address] Hilary Cordova MD [address] [place] [address] documented as of this encounter [...] documented as of this encounter Care Teams Senior Writer Relationship Specialty Start Date End Date Pcp, Mady [address] [place] [address] PCP - General Family Medicine 06/11/24 12/09/24 Natalia Wayne, YVONNE [address] [place] [address] PCP - General 12/10/24 documented as of this encounter
[2025-07-18 10:19] LABS: Hematocrit 35.9 % (37.0-47.0); Hemoglobin 12.2 g/dL (12.2-16.2); Immature Granulocytes % 0.5 %; Mean Corpuscular HGB Conc 34.0 g/dL (31.8-35.4); Mean Corpuscular Hemoglobin 35.4 pg (27.0-31.2); Mean Corpuscular Volume 104.1 fl (81-99); Nucleated Red Blood Cells % 0 %; Platelet Count 193 K/mm3 (142-424); Red Blood Count 3.45 M/mm3 (4.20-5.40); Red Cell Distribution Width-SD 59.6 fL; White Blood Count 6.4 K/mm3 (4.8-10.8)
[2025-07-18 10:29] LABS: Alanine Aminotransferase 17 U/L (12-78); Albumin Level 3.4 g/dl (3.5-5.0); Albumin/Globulin Ratio 1.3 (1.1-1.8); Alkaline Phosphatase 94 U/L (38-126); Anion Gap 11.1 mEq/L (5-15); Aspartate Amino Transferase 28 U/L (14-36); Bilirubin,Total 0.6 mg/dl (0.2-1.3); Blood Urea Nitrogen 13 mg/dl (7-17); Calcium 8.9 mg/dl (8.4-10.2); Carbon Dioxide 22 mmol/L (22.0-30.0); Chloride 108 mmol/L (98-107); Creatinine,Serum 1.50 mg/dl (0.52-1.04); Estimated Glomerular Filt Rate 34 ml/min (>60); GFR (African American) 41 ML/MIN (>60); Globulin 2.6 g/dL (1.3-3.2); Glucose 92 mg/dl (74-100); Potassium 4.1 mmoL/L (3.5-5.1); Sodium 137 mmol/L (136-145); Total Protein,Serum 6.0 g/dl (6.3-8.2)
[2025-07-19 08:17] LABS: CEA 1.4 ng/mL (0.0-4.7)
== END 2025-07-18 23:59 | disposition home or self-care (01) ==
LOC: INF 09:51
PROVIDERS: PCP Nurse Practitioner Family; Visit Provider Internal Medicine Medical Oncology
DX: C20 Malignant neoplasm of rectum (principal); C77.5 Secondary and unspecified malignant neoplasm of intrapelvic lymph nodes
CPT/HCPCS: 36591; 80053; 82378; 85025; J1642